=== PATIENT | male | born 1940 | race Caucasian/White ===

== ENCOUNTER 2015-12-05 11:08 | Inpatient (IN) | payer MEDICARE ==
[2015-12-05] VITALS (13 sets, daily range): BP systolic 134–137; BP diastolic 73–80; PULSE 69–100; RESP 14–18; TEMP 97.7–98.7; O2SAT 97–100
[~2015-12-05] VITALS: Ht 170.2 cm; Wt 56.5 kg
[~2015-12-05 11:08] MED LIST: Z.0.NO CURRENT MEDS
[2015-12-05] MEDS ORDERED: PROPOFOL 1000 MG/100 ML INJ 100 ML ONE (11:11)
[2015-12-05] MEDS ORDERED: MIDAZOLAM HCL 5 MG/ML VIAL (1 ML) ONE (11:34)
[2015-12-05] MEDS ORDERED: ONDANSETRON HCL 4 MG/2 ML VIAL IV PRN (11:45)
[2015-12-05] MEDS ORDERED: MISCELLANEOUS NURSING INFORMATION XX SCH ×2 (11:45→12:30)
[2015-12-05] MEDS ORDERED: SODIUM CHLORIDE 0.9% FLUSH 5 ML FLUSH IVF PRN (11:45)
[2015-12-05] MEDS ORDERED: CHLORHEXIDINE GLUCONATE 2 % 1 PACK (2 CLOTHS) TOP PRN ×2 (11:45→12:30)
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
[2015-12-05 11:59] LABS: I-STAT POTASSIUM 4.2 MMOL/L (3.5-4.9)
[2015-12-05 12:00] LABS: AUTOMATED NEUTROPHIL # 7.8 TH/MM3 (1.8-7.7); BASOPHIL % 0.4 % (0.0-2.0); EOSINOPHIL % 0.4 % (0.0-4.0); HEMATOCRIT 39.2 % (39.0-51.0); HEMO FLAGS DIFF FINAL; LYMPH % 14.2 % (9.0-44.0); LYMPHOCYTE # 1.4 TH/MM3 (1.0-4.8); MEAN CELL VOLUME 98.6 FL (80.0-100.0); MEAN CORPUSCULAR HGB CONC 33.5 % (32.0-36.0); MONO % 4.9 % (0.0-8.0); NEUT % 80.1 % (16.0-70.0); PLATELET COUNT 219 TH/MM3 (150-450); RED BLOOD COUNT 3.98 MIL/MM3 (4.50-5.90); RED CELL DISTRIBUTION WIDTH 13.6 % (11.6-17.2); WHITE BLOOD COUNT 9.8 TH/MM3 (4.0-11.0)
[2015-12-05] MEDS ORDERED: BACITRACIN TOP OINT 15 GM TUBE TOP ONE (12:00)
[2015-12-05] MEDS ORDERED: LACTATED RINGER'S 1000 ML INJ 1,000 ML IV ONE ×2 (12:00→16:00)
[2015-12-05] MEDS ORDERED: IOHEXOL 350 MG/ML 10 ML VIAL (for RAD DIAG) IV ONE (12:08)
[2015-12-05 12:11] LABS: INTERNATIONAL NORMALIZED RATIO 1.1 RATIO; PROTHROMBIN TIME - PATIENT 10.7 SEC (9.8-11.4)
[2015-12-05 12:13] LABS: APTT (PATIENT) 26.8 SEC (22.6-28.8)
[2015-12-05] MEDS: SODIUM CHLOR 0.9% 1000 ML INJ 1,000 ML IV SCH (12:25)
[2015-12-05] MEDS ORDERED: BUPIVACAINE/EPINEPHRINE 0.5% 50 ML VIAL ONE (12:26)
[2015-12-05] MEDS ORDERED: DEXTROSE 50% IN WATER 50 ML VIAL(D50) IV PUSH PRN (12:30)
[2015-12-05] MEDS ORDERED: GLUCAGON 1 MG/ML VIAL OTHER PRN (12:30)
[2015-12-05] MEDS ORDERED: SENNOSIDES SYRUP 8.8 MG/5 ML CUP TUBE PRN (12:30)
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
[2015-12-05] MEDS: ARTIFICIAL TEARS OPTH SOLN 15 ML BTL EACH EYE SCH ×2 (13:00→17:18)
[2015-12-05] MEDS: PANTOPRAZOLE SODIUM 40 MG VIAL IVP SCH (13:00)
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
[2015-12-05] MEDS ORDERED: ceFAZolin INJ 1,000 MG VIAL IV ONE (13:10)
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
[2015-12-05] MEDS ORDERED: fentaNYL CITRATE 250 MCG/5 ML AMP ONE (14:12)
[2015-12-05] MEDS: MULTIVITAMIN INJ 10 ML, THIAMINE INJ 100 MG, FOLIC ACID INJ 1 MG in SODIUM CHLORID 0.9%... IV SCH (14:17)
[2015-12-05] MEDS ORDERED: NITROGLYCERIN 2% OINT 1 GM PACKET TOPICAL PRN (14:30)
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
[2015-12-05 14:49] LABS: BLOOD GAS BASE EXCESS -1.2 mmol/L (-2-2); BLOOD GAS CARBOXYHEMOGLOBIN 1.1 % (0-4); BLOOD GAS HCO3 23 mmol/L (22-26); BLOOD GAS METHEMOGLOBIN 0.8 % (0-2); BLOOD GAS O2 HGB SATURATION 98 % (90-100); BLOOD GAS OXYGEN CONTENT 16.8 Vol % (12.0-20.0); BLOOD GAS PCO2 38 mmHg (38-42); BLOOD GAS PO2 324 mmHg (61-120); BLOOD GAS TOTAL HGB 11.7 G/DL (12.0-16.0); CRITICAL VALUE NO; DRAW SITE RT RADIAL; FIO2 100 %; NUMBER OF ARTERIAL PUNCTURES 1; OXYGEN DEVICE VENTILATOR; STAT YES; TEMP CORR TO 98.6; VENT SETTINGS A/C500/14/PEEP5
[2015-12-05 16:18] LABS: BLOOD, URINE NEG (NEG); COMMENT (UR) CATH-CULT NOT IND; CULTURE IF INDICATED CATH CULTURE NOT IND; GLUCOSE,URINE NEG (NEG); KETONE, URINE NEG (NEG); MUCUS URINE FEW /lpf (OCC); NITRITE,URINE NEG (NEG); URINE COLOR YELLOW (YELLW/STRAW)
[2015-12-05 16:36] LABS: AMPHETAMINE, URINE NEG (NEG); BARBITURATES, URINE NEG (NEG); COCAINE, URINE NEG (NEG)
[2015-12-05] MEDS: RESP: ALBUTEROL 2.5 MG/IPRATROPIUM 0.5 MG NEB (SCH) INH ×2 (16:39→20:48)
[2015-12-05] MEDS: INSULIN NovoLIN REGULAR SUPPLEMENTAL SCALE SQ SCH (17:18)
[2015-12-05] MEDS: PROPOFOL 1000 MG/100 ML INJ 100 ML IV SCH (18:07)
[2015-12-05] MEDS: CHLORHEXIDINE 0.12% (ORAL KIT) 15 ML CUP MT SCH (20:00)
[2015-12-05] MEDS ORDERED: CHLORHEXIDINE 0.12% (ORAL KIT) 15 ML CUP MT SCH (20:00)
[2015-12-05] MEDS: SODIUM CHLORIDE 0.9% FLUSH 5 ML FLUSH IVF SCH (20:25)
[2015-12-05] MEDS: DOCUSATE SODIUM 100 MG CAP PO SCH (20:26)
[2015-12-05] MEDS: BACITRACIN TOP OINT 15 GM TUBE TOP SCH (21:00)
[2015-12-06] VITALS (21 sets, daily range): BP systolic 87–145; BP diastolic 51–73; PULSE 57–100; RESP 14–20; TEMP 97.4–99.1; O2SAT 97–100
[2015-12-06] MEDS: PROPOFOL 1000 MG/100 ML INJ 100 ML IV SCH ×3 (01:32→16:48)
[2015-12-06] MEDS: SODIUM CHLOR 0.9% 1000 ML INJ 1,000 ML IV SCH ×3 (01:45→21:21)
[2015-12-06] MEDS ORDERED: CHLORHEXIDINE GLUCONATE 2 % 1 PACK (2 CLOTHS) TOP SCH (04:00)
[2015-12-06] MEDS: CHLORHEXIDINE GLUCONATE 2 % 1 PACK (2 CLOTHS) TOP SCH (04:00)
[2015-12-06] MEDS: RESP: ALBUTEROL 2.5 MG/IPRATROPIUM 0.5 MG NEB (SCH) INH ×4 (04:36→19:28)
[2015-12-06 04:45] LABS: BICARBONATE 26.2 MEQ/L (21.0-32.0); CALCIUM-PROTEIN CORRECTED 8.5 MG/DL (8.5-10.1); MAGNESIUM 1.7 MG/DL (1.5-2.5); POTASSIUM 3.8 MEQ/L (3.5-5.1); TOTAL BILIRUBIN ADULT 1.1 MG/DL (0.2-1.0)
[2015-12-06] MEDS: INSULIN NovoLIN REGULAR SUPPLEMENTAL SCALE SQ SCH ×4 (06:00→18:00)
[2015-12-06 06:05] LABS: AUTOMATED NEUTROPHIL # 5.8 TH/MM3 (1.8-7.7); BASOPHIL % 0.3 % (0.0-2.0); EOSINOPHIL # 0.1 TH/MM3 (0-0.4); EOSINOPHIL % 1.3 % (0.0-4.0); HEMATOCRIT 32.2 % (39.0-51.0); HEMO FLAGS DIFF FINAL; LYMPHOCYTE # 1.1 TH/MM3 (1.0-4.8); MEAN CELL VOLUME 98.6 FL (80.0-100.0); MEAN CORPUSCULAR HEMOGLOBIN 33.3 PG (27.0-34.0); MEAN CORPUSCULAR HGB CONC 33.7 % (32.0-36.0); MONO % 8.1 % (0.0-8.0); NEUT % 76.3 % (16.0-70.0); PLATELET COUNT 156 TH/MM3 (150-450); RED BLOOD COUNT 3.26 MIL/MM3 (4.50-5.90); RED CELL DISTRIBUTION WIDTH 14.2 % (11.6-17.2); WHITE BLOOD COUNT 7.6 TH/MM3 (4.0-11.0)
--- NOTE | 2015-12-06 06:13 | RADRPT ---
EXAM DATE/TIME: 12/06/2015 04:49 [facility] COMPARISON: CHEST SINGLE AP, December 05, 2015, 11:04. INDICATIONS : Shortness of breath. MEDICAL HISTORY : Unobtainable. SURGICAL HISTORY : Unobtainable. ENCOUNTER: Subsequent ACUITY: 1 day PAIN SCORE: Non-responsive. LOCATION: Bilateral chest FINDINGS: Endotracheal tube in satisfactory position. Nasogastric tube has been placed since December 04. Mild basi lar airspace disease stable to slightly improved from December 04. There is a small right apical pneumoth orax with about 1 cm of pleural separation. There is some motion artifact on the prior study. Left ap ical pleural thickening. CONCLUSION: 1. Small right apical pneumothorax with about 1 cm pleural separation. Close followup recommended. Cam Adams MD on December 06, 2015 at 6:07 Board Certified Radiologist. This report was verified electronically.
[2015-12-06] MEDS: CHLORHEXIDINE 0.12% (ORAL KIT) 15 ML CUP MT SCH ×2 (08:00→19:17)
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
[2015-12-06] MEDS: BACITRACIN TOP OINT 15 GM TUBE TOP SCH ×2 (09:00→21:00)
[2015-12-06] MEDS: ARTIFICIAL TEARS OPTH SOLN 15 ML BTL EACH EYE SCH ×3 (09:00→18:00)
[2015-12-06] MEDS: SODIUM CHLORIDE 0.9% FLUSH 5 ML FLUSH IVF SCH ×2 (09:00→19:17)
[2015-12-06] MEDS: DOCUSATE SODIUM 100 MG CAP PO SCH ×2 (09:03→19:18)
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
[2015-12-06] MEDS: PIPERACIL-TAZO 4.5 GM PREMIX 100 ML IV SCH ×3 (11:07→21:08)
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
[2015-12-06] MEDS ORDERED: LORazepam 2 MG/ML VIAL ONE (12:17)
[2015-12-06] MEDS ORDERED: LORazepam 2 MG/ML VIAL IV PUSH ONE (12:30)
[2015-12-06] MEDS ORDERED: SODIUM CHLOR 0.9% 1000 ML INJ 1,000 ML IV ONE (12:30)
[2015-12-06] MEDS ORDERED: ALBUMIN HUMAN 25% 25 GM/100 ML BAGP IV ONE (14:00)
[2015-12-06] MEDS: PANTOPRAZOLE SODIUM 40 MG VIAL IVP SCH (14:16)
[2015-12-06] MEDS: MULTIVITAMIN INJ 10 ML, THIAMINE INJ 100 MG, FOLIC ACID INJ 1 MG in SODIUM CHLORID 0.9%... IV SCH (14:18)
[2015-12-06] MEDS: MIDAZOLAM 100 MG/ML INJ 100 ML IV SCH (16:48)
--- NOTE | 2015-12-06 17:03 | RADRPT ---
EXAM DATE/TIME: 12/06/2015 15:55 [facility] COMPARISON: CTA CAROTID ARTERIES W 3D RECON, December 05, 2015, 11:53. CHEST SINGLE AP, December 05, 2015, 11:04. CHEST SINGLE AP, December 06, 2015, 4:49. INDICATIONS : Short of breath, evaluate right apical pneumothorax MEDICAL HISTORY : right apical pneumothorax SURGICAL HISTORY : unobtainable ENCOUNTER: Subsequent ACUITY: 2 days PAIN SCORE: Non-responsive. LOCATION: Right chest FINDINGS: Rotated AP view of the chest demonstrates a normal-sized cardiac silhouette. ETT and nasogastric tube remain present. There is stable lucency at the apex of the right hemithorax suspicious for a small r esidual apical pneumothorax. There is airspace opacity left lower lung zone representing either atele ctasis or consolidation. There is hazy opacity at the right lung base partially obscuring the periphe ral hemidiaphragm. CONCLUSION: 1. There is likely a continued tiny right apical pneumothorax. There is subtle lucency visualized. 2. Mild airspace consolidation versus atelectasis at the left lung base. 3. Hazy opacity right lung base may represent pleural effusion with associated volume loss and/or con solidation. Martinez Mcguire MD on December 06, 2015 at 16:58 Board Certified Radiologist. This report was verified electronically.
[2015-12-06] MEDS: POLYETHYLENE GLYCOL 17 GM PKG PO/NG SCH (21:08)
[2015-12-06] MEDS: fentaNYL DRIP 250 ML IV SCH (21:31)
[2015-12-07] VITALS (23 sets, daily range): BP systolic 90–127; BP diastolic 53–60; PULSE 67–94; RESP 14–17; TEMP 97.2–100.7; O2SAT 97–100
[2015-12-07] MEDS: ACETAMINOPHEN 325 MG TAB PO PRN ×2 (00:06→10:15)
[2015-12-07] MEDS: RESP: ALBUTEROL 2.5 MG/IPRATROPIUM 0.5 MG NEB (SCH) INH ×4 (03:35→19:27)
[2015-12-07] MEDS: CHLORHEXIDINE GLUCONATE 2 % 1 PACK (2 CLOTHS) TOP SCH (04:00)
[2015-12-07] MEDS: PIPERACIL-TAZO 4.5 GM PREMIX 100 ML IV SCH ×3 (05:02→17:00)
[2015-12-07 05:06] LABS: AUTOMATED NEUTROPHIL # 6.6 TH/MM3 (1.8-7.7); BASOPHIL % 0.3 % (0.0-2.0); EOSINOPHIL # 0.1 TH/MM3 (0-0.4); EOSINOPHIL % 1.3 % (0.0-4.0); HEMATOCRIT 27.9 % (39.0-51.0); HEMO FLAGS DIFF FINAL; LYMPH % 11.6 % (9.0-44.0); LYMPHOCYTE # 0.9 TH/MM3 (1.0-4.8); MEAN CELL VOLUME 100.6 FL (80.0-100.0); MEAN CORPUSCULAR HEMOGLOBIN 33.4 PG (27.0-34.0); MEAN CORPUSCULAR HGB CONC 33.2 % (32.0-36.0); MONO % 5.9 % (0.0-8.0); NEUT % 80.9 % (16.0-70.0); PLATELET COUNT 115 TH/MM3 (150-450); RED BLOOD COUNT 2.77 MIL/MM3 (4.50-5.90); RED CELL DISTRIBUTION WIDTH 14.1 % (11.6-17.2); WHITE BLOOD COUNT 8.1 TH/MM3 (4.0-11.0)
[2015-12-07 05:18] LABS: BICARBONATE 25.6 MEQ/L (21.0-32.0); POTASSIUM 3.1 MEQ/L (3.5-5.1)
[2015-12-07 05:34] LABS: CALCIUM-PROTEIN CORRECTED 7.3 MG/DL (8.5-10.1)
[2015-12-07] MEDS ORDERED: CALCIUM GLUCONATE INJ 2 GM in SODIUM CHLORIDE 0.9% INJ 100 ML IV ONE (05:45)
--- NOTE | 2015-12-07 05:46 | RADRPT ---
EXAM DATE/TIME: 12/07/2015 04:32 [facility] COMPARISON: CHEST SINGLE AP, December 06, 2015, 15:55. INDICATIONS : Short of Breath MEDICAL HISTORY : Right apical pneumothorax SURGICAL HISTORY : Unobtainable ENCOUNTER: Subsequent ACUITY: 2 days PAIN SCORE: Non-responsive. LOCATION: Bilateral chest FINDINGS: No pneumothorax identified on current exam. Bilateral mostly basilar airspace disease, left greater t amador right is relatively stable. Endotracheal tube and nasogastric tube unchanged. There is a presumed stent overlying the left mainstem bronchus. Left-sided pleural thickening is stable. CONCLUSION: 1. No pneumothorax seen on current exam. Relatively stable basilar airspace disease, left greater chente n right. Cam Adams MD on December 07, 2015 at 5:41 Board Certified Radiologist. This report was verified electronically.
[2015-12-07] MEDS: INSULIN NovoLIN REGULAR SUPPLEMENTAL SCALE SQ SCH ×4 (05:50→18:00)
[2015-12-07] MEDS: CHLORHEXIDINE 0.12% (ORAL KIT) 15 ML CUP MT SCH ×2 (07:43→20:00)
[2015-12-07] MEDS: MIDAZOLAM 100 MG/ML INJ 100 ML IV SCH (08:13)
[2015-12-07] MEDS: POLYETHYLENE GLYCOL 17 GM PKG PO/NG SCH ×3 (08:17→20:57)
[2015-12-07] MEDS: DOCUSATE SODIUM 100 MG CAP PO SCH ×2 (08:17→20:56)
[2015-12-07] MEDS: ARTIFICIAL TEARS OPTH SOLN 15 ML BTL EACH EYE SCH ×3 (08:18→18:00)
[2015-12-07] MEDS: BACITRACIN TOP OINT 15 GM TUBE TOP SCH ×2 (08:18→20:57)
[2015-12-07] MEDS: SODIUM CHLORIDE 0.9% FLUSH 5 ML FLUSH IVF SCH ×2 (08:18→20:56)
[2015-12-07] MEDS: SENNOSIDES SYRUP 8.8 MG/5 ML CUP PO/NG SCH ×2 (08:24→20:56)
[2015-12-07] MEDS: MAGNESIUM SULFATE 1 GM PREMIX 100 ML IV SCH ×2 (08:25→09:49)
[2015-12-07] MEDS: LACTULOSE SYRUP 20 GM/30 ML CUP PO/NG SCH ×2 (08:25→20:56)
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
[2015-12-07] MEDS ORDERED: POTASSIUM PHOSPHATE INJ 30 MMOL in SODIUM CHLOR 0.9% 250 ML INJ 250 ML IV PRN (08:30)
[2015-12-07] MEDS ORDERED: POTASSIUM CL 40 MEQ/30 ML LIQ UDC PO ONE (08:30)
[2015-12-07] MEDS ORDERED: MAGNESIUM OXIDE 400 MG TAB PO PRN (08:30)
[2015-12-07] MEDS ORDERED: POTASSIUM CHLOR 20 MEQ PREMIX 100 ML IV ONE (08:30)
[2015-12-07] MEDS ORDERED: MAGNESIUM SULFATE INJ 2 GM in SODIUM CHLORIDE 0.9% INJ 96 ML IV PRN (08:30)
[2015-12-07] MEDS ORDERED: MAGNESIUM SULFATE INJ 4 GM in SODIUM CHLORIDE 0.9% INJ 92 ML IV PRN (08:30)
[2015-12-07] MEDS ORDERED: 1/2 NS + KCL 20 MEQ INJ 1,000 ML IV SCH (08:30)
[2015-12-07] MEDS ORDERED: POTASSIUM PHOSPHATE MONOBASIC 500 MG TAB PO PRN (08:30)
[2015-12-07] MEDS ORDERED: POTASSIUM CHLOR 20 MEQ PREMIX 100 ML IV PRN (08:30)
[2015-12-07] MEDS ORDERED: POTASSIUM CL 40 MEQ/30 ML LIQ UDC PO/TUBE PRN ×2 (08:30)
[2015-12-07] MEDS ORDERED: POTASSIUM PHOSPHATE MONOBASIC 500 MG TAB PO/TUBE PRN (08:30)
[2015-12-07] MEDS ORDERED: POTASSIUM CHLOR 40 MEQ PREMIX 100 ML IV PRN ×2 (08:30)
[2015-12-07] MEDS: BISACODYL 10 MG SUPP RECTAL SCH (09:49)
[2015-12-07] MEDS ORDERED: CALCIUM GLUCONATE INJ 1 GM in SODIUM CHLORIDE 0.9% INJ 100 ML IV ONE (10:00)
[2015-12-07] MEDS ORDERED: EPINEPHrine HCL (1:10,000) 1 MG/10 ML SYRINGE ONE (11:18)
[2015-12-07] MEDS ORDERED: ATROPINE SULFATE 1 MG/10 ML SYRINGE ONE (11:18)
[2015-12-07] MEDS ORDERED: LIDOCAINE HCL 2% 100 MG/5 ML SYRINGE ONE (11:19)
[2015-12-07] MEDS ORDERED: IOHEXOL 350 MG/ML 10 ML VIAL (for RAD DIAG) IV ONE (12:13)
[2015-12-07] MEDS: PANTOPRAZOLE SODIUM 40 MG VIAL IVP SCH (12:16)
[2015-12-07] MEDS: fentaNYL DRIP 250 ML IV SCH (12:17)
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
[2015-12-07] MEDS: MULTIVITAMIN INJ 10 ML, THIAMINE INJ 100 MG, FOLIC ACID INJ 1 MG in SODIUM CHLORID 0.9%... IV SCH (13:28)
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
[2015-12-08] VITALS (18 sets, daily range): BP systolic 96–127; BP diastolic 54–61; PULSE 74–103; RESP 14–18; TEMP 98.3–102.6; O2SAT 96–100
[2015-12-08] MEDS: PIPERACIL-TAZO 4.5 GM PREMIX 100 ML IV SCH ×4 (00:21→16:41)
[2015-12-08] MEDS: INSULIN NovoLIN REGULAR SUPPLEMENTAL SCALE SQ SCH ×4 (00:48→17:22)
[2015-12-08] MEDS: ACETAMINOPHEN 325 MG TAB PO PRN ×3 (00:49→21:32)
[2015-12-08] MEDS: RESP: ALBUTEROL 2.5 MG/IPRATROPIUM 0.5 MG NEB (SCH) INH ×4 (01:10→20:07)
[2015-12-08 04:40] LABS: AUTOMATED NEUTROPHIL # 3.7 TH/MM3 (1.8-7.7); BASOPHIL % 0.2 % (0.0-2.0); EOSINOPHIL # 0.1 TH/MM3 (0-0.4); EOSINOPHIL % 2.6 % (0.0-4.0); HEMATOCRIT 30.1 % (39.0-51.0); HEMO FLAGS DIFF FINAL; LYMPH % 11.8 % (9.0-44.0); LYMPHOCYTE # 0.6 TH/MM3 (1.0-4.8); MEAN CELL VOLUME 101.3 FL (80.0-100.0); MEAN CORPUSCULAR HEMOGLOBIN 33.6 PG (27.0-34.0); MEAN CORPUSCULAR HGB CONC 33.2 % (32.0-36.0); MONO % 6.8 % (0.0-8.0); NEUT % 78.6 % (16.0-70.0); PLATELET COUNT 109 TH/MM3 (150-450); RED BLOOD COUNT 2.97 MIL/MM3 (4.50-5.90); RED CELL DISTRIBUTION WIDTH 14.2 % (11.6-17.2); WHITE BLOOD COUNT 4.7 TH/MM3 (4.0-11.0)
[2015-12-08 05:43] LABS: BICARBONATE 27.2 MEQ/L (21.0-32.0); MAGNESIUM 2.3 MG/DL (1.5-2.5); POTASSIUM 4.3 MEQ/L (3.5-5.1)
[2015-12-08] MEDS: CHLORHEXIDINE GLUCONATE 2 % 1 PACK (2 CLOTHS) TOP SCH (05:47)
[2015-12-08] MEDS: MIDAZOLAM 100 MG/ML INJ 100 ML IV SCH ×2 (05:47→18:42)
--- NOTE | 2015-12-08 05:52 | RADRPT ---
EXAM DATE/TIME: 12/08/2015 05:07 [facility] COMPARISON: CHEST SINGLE AP, December 07, 2015, 4:32. INDICATIONS : Short of breath. MEDICAL HISTORY : Hypertension. Right apical pneumothorax. SURGICAL HISTORY : None. ENCOUNTER: Subsequent ACUITY: 3 days PAIN SCORE: Non-responsive. LOCATION: Bilateral chest FINDINGS: A single view of the chest demonstrates endotracheal tube in satisfactory position. NG enters stomach . Bilateral airspace disease, left greater than right relatively stable over the last day. No pneumot horax. Small effusions. CONCLUSION: 1. Endotracheal tube and nasogastric tube unchanged. Stable bilateral airspace disease with small eff usions. Cam Adams MD on December 08, 2015 at 5:48 Board Certified Radiologist. This report was verified electronically.
[2015-12-08] MEDS: CHLORHEXIDINE 0.12% (ORAL KIT) 15 ML CUP MT SCH ×2 (07:38→20:00)
[2015-12-08] MEDS: SODIUM PHOSPHATE INJ 30 MMOL in SODIUM CHLOR 0.9% 250 ML INJ 240 ML IV PRN (07:45)
[2015-12-08] MEDS: BACITRACIN TOP OINT 15 GM TUBE TOP SCH ×2 (08:00→21:23)
[2015-12-08] MEDS: SODIUM CHLORIDE 0.9% FLUSH 5 ML FLUSH IVF SCH ×2 (08:00→21:21)
[2015-12-08] MEDS: SENNOSIDES SYRUP 8.8 MG/5 ML CUP PO/NG SCH (08:00)
[2015-12-08] MEDS: LACTULOSE SYRUP 20 GM/30 ML CUP PO/NG SCH ×3 (08:00→17:23)
[2015-12-08] MEDS: BISACODYL 10 MG SUPP RECTAL SCH (08:00)
[2015-12-08] MEDS: DOCUSATE SODIUM 100 MG CAP PO SCH ×3 (08:00→21:32)
[2015-12-08] MEDS: POLYETHYLENE GLYCOL 17 GM PKG PO/NG SCH ×2 (08:00→21:00)
[2015-12-08] MEDS: ARTIFICIAL TEARS OPTH SOLN 15 ML BTL EACH EYE SCH ×3 (08:00→17:23)
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
[2015-12-08] MEDS ORDERED: GLYCERIN ADULT 2 GM SUPP RECTAL ONE (10:00)
[2015-12-08] MEDS: SENNOSIDES SYRUP 8.8 MG/5 ML CUP TUBE SCH ×2 (12:06→21:22)
[2015-12-08] MEDS: PANTOPRAZOLE SODIUM 40 MG VIAL IVP SCH (12:07)
[2015-12-08] MEDS ORDERED: METHYLNALTREXONE BROMIDE 12 MG/0.6 ML VIAL SQ ONE ×2 (12:30→14:00)
[2015-12-08] MEDS: METOCLOPRAMIDE HCL 10 MG/2 ML VIAL IV PUSH SCH ×2 (13:01→21:21)
[2015-12-08] MEDS: fentaNYL DRIP 250 ML IV SCH (14:59)
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
[2015-12-08] MEDS ORDERED: DILTIAZEM HCL 25 MG/5 ML VIAL ONE (20:42)
[2015-12-08] MEDS ORDERED: DILTIAZEM 125 MG/NS 100 ML IV SCH ×2 (21:30)
[2015-12-08] MEDS ORDERED: DILTIAZEM HCL 25 MG/5 ML VIAL IV PUSH ONE (21:30)
[2015-12-09] VITALS (21 sets, daily range): BP systolic 90–115; BP diastolic 54–61; PULSE 66–96; RESP 14; TEMP 99–100.6; O2SAT 92–100
[2015-12-09] MEDS: CHLORHEXIDINE GLUCONATE 2 % 1 PACK (2 CLOTHS) TOP SCH
[2015-12-09] MEDS: INSULIN NovoLIN REGULAR SUPPLEMENTAL SCALE SQ SCH ×4 (01:01→16:50)
[2015-12-09] MEDS: PIPERACIL-TAZO 4.5 GM PREMIX 100 ML IV SCH ×5 (01:01→21:22)
[2015-12-09] MEDS ORDERED: ALBUMIN HUMAN 5% 12.5 GM/250 ML BOTTLE IV ONE (03:30)
[2015-12-09] MEDS: RESP: ALBUTEROL 2.5 MG/IPRATROPIUM 0.5 MG NEB (SCH) INH ×4 (03:58→20:25)
[2015-12-09 04:56] LABS: BICARBONATE 26.2 MEQ/L (21.0-32.0); MAGNESIUM 2.2 MG/DL (1.5-2.5); POTASSIUM 4.8 MEQ/L (3.5-5.1)
[2015-12-09 05:13] LABS: CALCIUM-PROTEIN CORRECTED 8.4 MG/DL (8.5-10.1)
[2015-12-09 05:42] LABS: AUTOMATED NEUTROPHIL # 5.1 TH/MM3 (1.8-7.7); BASOPHIL % 0.4 % (0.0-2.0); EOSINOPHIL # 0.2 TH/MM3 (0-0.4); EOSINOPHIL % 2.8 % (0.0-4.0); HEMATOCRIT 28.5 % (39.0-51.0); LYMPH % 10.8 % (9.0-44.0); LYMPHOCYTE # 0.7 TH/MM3 (1.0-4.8); MEAN CELL VOLUME 98.6 FL (80.0-100.0); MEAN CORPUSCULAR HEMOGLOBIN 33.2 PG (27.0-34.0); MEAN CORPUSCULAR HGB CONC 33.7 % (32.0-36.0); MONO % 8.7 % (0.0-8.0); NEUT % 77.3 % (16.0-70.0); PLATELET COUNT 106 TH/MM3 (150-450); RED BLOOD COUNT 2.89 MIL/MM3 (4.50-5.90); RED CELL DISTRIBUTION WIDTH 14.1 % (11.6-17.2); WHITE BLOOD COUNT 6.6 TH/MM3 (4.0-11.0)
[2015-12-09 05:49] LABS: HEMO FLAGS AUTO DIFF
[2015-12-09 05:53] LABS: BANDS 39 % (0-6); EOSINOPHILS 4 % (0-4); METAMYELOCYTES 3 % (0-1); NEUTROPHIL # MANUAL DIFF 4.9 TH/MM3 (1.8-7.7); POLYS (SEG NEUTROPHILS) 32 % (16-70); SCAN/DIFF FINAL DIFF MANUAL; WBC DIFF SAMPLE 100
[2015-12-09 05:54] LABS: DOHLE BODIES PRESENT (NONE SEEN); PLATELET ESTIMATE SMEAR LOW (NORMAL); PLATELET MORPHOLOGY NORMAL (NORMAL); TOXIC GRANULATION 1+ (NORMAL); TOXIC VACUOLATION PRESENT (NONE SEEN)
[2015-12-09] MEDS: METOCLOPRAMIDE HCL 10 MG/2 ML VIAL IV PUSH SCH ×3 (06:38→21:22)
[2015-12-09] MEDS ORDERED: Vancomycin Consult Pharmacy 1 EA OTHER SCH (06:45)
[2015-12-09] MEDS ORDERED: VANCOMYCIN 1,000 MG/NS 250 ML IV ONE ×2 (06:45)
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
[2015-12-09] MEDS ORDERED: SODIUM CHLORID 0.9% 500 ML INJ 500 ML IV ONE (07:30)
[2015-12-09] MEDS: MIDAZOLAM 100 MG/ML INJ 100 ML IV SCH (07:51)
[2015-12-09] MEDS: fentaNYL DRIP 250 ML IV SCH (07:51)
[2015-12-09] MEDS: ENOXAPARIN SODIUM 30 MG/0.3 ML SYRINGE SQ SCH ×2 (07:53→21:21)
[2015-12-09] MEDS: RANITIDINE HCL 150 MG TAB PO SCH ×2 (07:53→21:20)
[2015-12-09] MEDS: POLYETHYLENE GLYCOL 17 GM PKG PO/NG SCH ×2 (07:53→21:21)
[2015-12-09] MEDS: ARTIFICIAL TEARS OPTH SOLN 15 ML BTL EACH EYE SCH ×3 (07:54→16:57)
[2015-12-09] MEDS: CHLORHEXIDINE 0.12% (ORAL KIT) 15 ML CUP MT SCH ×2 (07:54→20:00)
[2015-12-09] MEDS: METOPROLOL TARTRATE 5 MG/5 ML VIAL IV PUSH SCH ×3 (07:54→21:21)
[2015-12-09] MEDS: BACITRACIN TOP OINT 15 GM TUBE TOP SCH ×2 (07:55→21:00)
[2015-12-09] MEDS: SODIUM CHLORIDE 0.9% FLUSH 5 ML FLUSH IVF SCH ×2 (07:55→21:22)
--- NOTE | 2015-12-09 08:22 | RADRPT ---
EXAM DATE/TIME: 12/09/2015 07:41 [facility] COMPARISON: CHEST SINGLE AP, December 08, 2015, 5:07. INDICATIONS : Pneumonia. MEDICAL HISTORY : Pneumothorax. SURGICAL HISTORY : None. ENCOUNTER: Subsequent ACUITY: 4 - 6 days PAIN SCORE: Non-responsive. LOCATION: chest FINDINGS: The patient is intubated with ET tube 2.5 cm from the sherrie. There is a NG tube in place with its ti p directed into the stomach. The cardiac silhouette is within normal limits for size. There is worsen ing increased density throughout the left chest representing alveolar consolidation and a suspected m ild effusion. There is mild atelectasis at the right base. A pneumothorax is not seen. CONCLUSION: 1. No pneumothorax is seen. 2. Increased density throughout the left lung representing alveolar consolidation, atelectasis and po ssible mild effusion. 3. ET tube and NG tube in good position. Martinez Mireles MD on December 09, 2015 at 8:17 Board Certified Radiologist. This report was verified electronically.
[2015-12-09] MEDS: RESP: SODIUM CHLORIDE 3% 4 ML NEB NEB SCH ×3 (09:06→20:24)
[2015-12-09] MEDS: FREE WATER OG SCH ×2 (10:00→16:57)
[2015-12-09 11:20] LABS: BACTERIA, URINE OCC /hpf; BLOOD, URINE NEG (NEG); GLUCOSE,URINE NEG (NEG); HYALINE CAST, URINE 1 /lpf (RARE); KETONE, URINE TRACE mg/dL (NEG); MUCUS URINE FEW /lpf (OCC); NITRITE,URINE NEG (NEG); SQUAMOUS EPITHELIAL CELL URINE <1 /hpf (0-5); URINE COLOR YELLOW (YELLW/STRAW)
[2015-12-09 11:21] LABS: COMMENT (UR) CATH-CULTURE IND; CULTURE IF INDICATED CATH CULTURE IND
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
[2015-12-09] MEDS: SENNOSIDES SYRUP 8.8 MG/5 ML CUP TUBE SCH (13:34)
--- NOTE | 2015-12-09 17:44 | EKG ---
Date Performed: 12/08/2015 Time Performed: 20:26:22 PTAGE: 74 years EKG: Atrial fibrillation with rapid ventricular response. Extensive ST-T changes may be due to m yocardial ischemia When compared to previous tracing, atrial fibrillation with rapid Ventricular resp onse has replaced normal Sinus rhythm . Nonspecific ST-T changes are now noted. Abnormal ECG PREVIOUS TRACING : 03/18/2013 04.58 DOCTOR: Byron Hernández Interpretating Date/Time 12/09/2015 17:43:50
--- NOTE | 2015-12-09 17:47 | EKG ---
Date Performed: 12/09/2015 Time Performed: 08:24:49 PTAGE: 74 years EKG: Sinus rhythm WITH SINUS ARRHYTHMIA When compared to previous tracing, sinus rhythm has replaced Atrial fibrillati on. ST-T abnormalities have resolved. NORMAL ECG PREVIOUS TRACING : 12/08/2015 20.26.22 DOCTOR: Byron Hernández Interpretating Date/Time 12/09/2015 17:45:58
--- NOTE | 2015-12-09 18:49 | RADRPT ---
EXAM DATE/TIME: 12/09/2015 18:24 [place] COMPARISON: No previous studies available for comparison. INDICATIONS : Altered mental status; patient is not waking up post sedation. RADIATION DOSE: 40.91 CTDIvol (mGy) MEDICAL HISTORY : Non-responsive. SURGICAL HISTORY : Non-responsive. ENCOUNTER: Subsequent ACUITY: 4 - 6 days PAIN SCALE: Non-responsive LOCATION: cranial TECHNIQUE: Multiple contiguous axial images were obtained of the head. Using automated exposure control and adj ustment of the mA and/or kV according to patient size, radiation dose was kept as low as reasonably a chievable to obtain optimal diagnostic quality images. FINDINGS: CEREBRUM: The ventricles are normal for age. No evidence of midline shift, mass lesion, hemorrhage or acute in farction. No extra-axial fluid collections are seen. POSTERIOR FOSSA: The cerebellum and brainstem are intact. The 4th ventricle is midline. The cerebellopontine angle i s unremarkable. EXTRACRANIAL: Patient remains intubated. There is mucoperiosteal thickening and debris of the paranasal sinuses. Th ere is also opacification developing of both mastoid air cells. SKULL: The calvaria is intact. No evidence of skull fracture. CONCLUSION: 1. No acute intracranial abnormality demonstrated. 2. Worsening/developing sinusitis/mastoiditis. Martinez Arciniega MD on December 09, 2015 at 18:46 Board Certified Radiologist. This report was verified electronically.
[2015-12-09] MEDS: VANCOMYCIN INJ 1,300 MG in SODIUM CHLORID 0.9% 500 ML INJ 500 ML IV SCH (21:22)
[2015-12-10] VITALS (17 sets, daily range): BP systolic 103–156; BP diastolic 53–78; PULSE 83–91; RESP 14–19; TEMP 98.8–104; O2SAT 91–100
[2015-12-10] MEDS: CHLORHEXIDINE GLUCONATE 2 % 1 PACK (2 CLOTHS) TOP SCH
[2015-12-10] MEDS: FREE WATER OG SCH ×3 (02:00→17:01)
[2015-12-10] MEDS: RESP: SODIUM CHLORIDE 3% 4 ML NEB NEB SCH ×4 (03:21→20:52)
[2015-12-10] MEDS: RESP: ALBUTEROL 2.5 MG/IPRATROPIUM 0.5 MG NEB (SCH) INH ×4 (03:21→20:52)
[2015-12-10] MEDS: METOPROLOL TARTRATE 5 MG/5 ML VIAL IV PUSH SCH ×4 (04:04→19:33)
[2015-12-10] MEDS: METOCLOPRAMIDE HCL 10 MG/2 ML VIAL IV PUSH SCH ×3 (04:05→19:34)
[2015-12-10] MEDS: PIPERACIL-TAZO 4.5 GM PREMIX 100 ML IV SCH ×4 (04:05→19:34)
[2015-12-10] MEDS: SENNOSIDES SYRUP 8.8 MG/5 ML CUP TUBE SCH ×3 (04:07→19:33)
[2015-12-10] MEDS: fentaNYL DRIP 250 ML IV SCH (04:28)
[2015-12-10] MEDS: MIDAZOLAM 100 MG/ML INJ 100 ML IV SCH (04:28)
[2015-12-10 05:06] LABS: BICARBONATE 22.7 MEQ/L (21.0-32.0); MAGNESIUM 1.7 MG/DL (1.5-2.5); POTASSIUM 4.2 MEQ/L (3.5-5.1)
[2015-12-10 05:30] LABS: CALCIUM-PROTEIN CORRECTED 7.2 MG/DL (8.5-10.1)
[2015-12-10] MEDS: INSULIN NovoLIN REGULAR SUPPLEMENTAL SCALE SQ SCH ×4 (06:00→18:00)
[2015-12-10] MEDS: CHLORHEXIDINE 0.12% (ORAL KIT) 15 ML CUP MT SCH ×2 (07:15→20:00)
[2015-12-10] MEDS: ENOXAPARIN SODIUM 30 MG/0.3 ML SYRINGE SQ SCH ×2 (08:12→19:33)
[2015-12-10] MEDS: POLYETHYLENE GLYCOL 17 GM PKG PO/NG SCH ×2 (08:12→19:33)
[2015-12-10] MEDS: SODIUM CHLORIDE 0.9% FLUSH 5 ML FLUSH IVF SCH ×2 (08:12→21:00)
[2015-12-10] MEDS: RANITIDINE HCL 150 MG TAB PO SCH ×2 (08:12→19:33)
[2015-12-10] MEDS: ARTIFICIAL TEARS OPTH SOLN 15 ML BTL EACH EYE SCH ×3 (08:13→17:01)
[2015-12-10] MEDS: BACITRACIN TOP OINT 15 GM TUBE TOP SCH ×2 (08:13→21:00)
[2015-12-10] MEDS: SODIUM PHOSPHATE INJ 30 MMOL in SODIUM CHLOR 0.9% 250 ML INJ 240 ML IV PRN (08:38)
[2015-12-10 10:10] LABS: AUTOMATED NEUTROPHIL # 3.3 TH/MM3 (1.8-7.7); BASOPHIL % 0.5 % (0.0-2.0); EOSINOPHIL # 0.2 TH/MM3 (0-0.4); EOSINOPHIL % 3.7 % (0.0-4.0); HEMATOCRIT 28.8 % (39.0-51.0); HEMO FLAGS DIFF FINAL; LYMPH % 16.4 % (9.0-44.0); LYMPHOCYTE # 0.7 TH/MM3 (1.0-4.8); MEAN CELL VOLUME 100.4 FL (80.0-100.0); MEAN CORPUSCULAR HGB CONC 32.9 % (32.0-36.0); MONO % 7.5 % (0.0-8.0); NEUT % 71.9 % (16.0-70.0); PLATELET COUNT 154 TH/MM3 (150-450); RED BLOOD COUNT 2.87 MIL/MM3 (4.50-5.90); RED CELL DISTRIBUTION WIDTH 14.2 % (11.6-17.2); WHITE BLOOD COUNT 4.5 TH/MM3 (4.0-11.0)
[2015-12-10] MEDS: ACETAMINOPHEN 325 MG TAB PO PRN ×2 (11:26→22:00)
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
[2015-12-10] MEDS ORDERED: POTASSIUM PHOSPHATE INJ 15 MMOL in SODIUM CHLORIDE 0.9% INJ 150 ML IV ONE (12:00)
[2015-12-10] MEDS ORDERED: SODIUM PHOSPHATE INJ 15 MMOL in SODIUM CHLORIDE 0.9% INJ 150 ML IV ONE (12:00)
[2015-12-10] MEDS ORDERED: CALCIUM GLUCONATE INJ 2 GM in SODIUM CHLORIDE 0.9% INJ 100 ML IV ONE (12:00)
[2015-12-10] MEDS: MAGNESIUM SULFATE 1 GM PREMIX 100 ML IV SCH ×2 (12:07→13:28)
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
[2015-12-10] MEDS: THIAMINE HCL 100 MG TAB PO/NG SCH (13:27)
[2015-12-10] MEDS ORDERED: FLUMAZENIL 0.5 MG/5 ML VIAL IV PUSH ONE (15:00)
[2015-12-10] MEDS: VANCOMYCIN INJ 1,300 MG in SODIUM CHLORID 0.9% 500 ML INJ 500 ML IV SCH (16:41)
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
[2015-12-11] VITALS (20 sets, daily range): BP systolic 97–144; BP diastolic 50–69; PULSE 66–102; RESP 14–17; TEMP 99.1–101.8; O2SAT 86–100
[2015-12-11] MEDS: CHLORHEXIDINE GLUCONATE 2 % 1 PACK (2 CLOTHS) TOP SCH (01:00)
[2015-12-11] MEDS: METOPROLOL TARTRATE 5 MG/5 ML VIAL IV PUSH SCH (02:00)
[2015-12-11] MEDS: RESP: ALBUTEROL 2.5 MG/IPRATROPIUM 0.5 MG NEB (SCH) INH ×6 (03:47→23:41)
[2015-12-11] MEDS: RESP: SODIUM CHLORIDE 3% 4 ML NEB NEB SCH ×6 (03:47→23:41)
[2015-12-11] MEDS: FREE WATER OG SCH ×3 (04:00→17:12)
[2015-12-11] MEDS: METOCLOPRAMIDE HCL 10 MG/2 ML VIAL IV PUSH SCH ×3 (04:36→20:20)
[2015-12-11] MEDS: PIPERACIL-TAZO 4.5 GM PREMIX 100 ML IV SCH ×4 (04:36→22:58)
[2015-12-11 04:38] LABS: AUTOMATED NEUTROPHIL # 6.2 TH/MM3 (1.8-7.7); BASOPHIL % 0.2 % (0.0-2.0); EOSINOPHIL # 0.1 TH/MM3 (0-0.4); EOSINOPHIL % 1.3 % (0.0-4.0); HEMATOCRIT 30.3 % (39.0-51.0); HEMO FLAGS DIFF FINAL; LYMPH % 7.6 % (9.0-44.0); LYMPHOCYTE # 0.6 TH/MM3 (1.0-4.8); MEAN CELL VOLUME 100.1 FL (80.0-100.0); MEAN CORPUSCULAR HEMOGLOBIN 32.8 PG (27.0-34.0); MEAN CORPUSCULAR HGB CONC 32.8 % (32.0-36.0); MONO % 8.3 % (0.0-8.0); NEUT % 82.6 % (16.0-70.0); PLATELET COUNT 161 TH/MM3 (150-450); RED BLOOD COUNT 3.03 MIL/MM3 (4.50-5.90); RED CELL DISTRIBUTION WIDTH 13.9 % (11.6-17.2); WHITE BLOOD COUNT 7.5 TH/MM3 (4.0-11.0)
[2015-12-11 05:01] LABS: MAGNESIUM 2.3 MG/DL (1.5-2.5); POTASSIUM 4.8 MEQ/L (3.5-5.1)
[2015-12-11] MEDS: fentaNYL DRIP 250 ML IV SCH ×3 (05:41→22:58)
[2015-12-11] MEDS: INSULIN NovoLIN REGULAR SUPPLEMENTAL SCALE SQ SCH ×5 (06:00→22:58)
--- NOTE | 2015-12-11 06:14 | RADRPT ---
EXAM DATE/TIME: 12/11/2015 05:27 [facility] COMPARISON: CHEST SINGLE AP, December 09, 2015, 7:41. INDICATIONS : Shortness of breath. MEDICAL HISTORY : Unobtainable. SURGICAL HISTORY : Unobtainable. ENCOUNTER: Subsequent ACUITY: 4 - 6 days PAIN SCORE: Non-responsive. LOCATION: Bilateral chest FINDINGS: ET tube, and NG tube have not changed. There is worsening opacification of the entire left lung since the prior study. Right perihilar parenchymal process has not significantly changed. CONCLUSION: Worsening opacity of the left lung. Carisa Vergara MD on December 11, 2015 at 6:12 Board Certified Radiologist. This report was verified electronically.
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
[2015-12-11] MEDS ORDERED: METHYLNALTREXONE BROMIDE 12 MG/0.6 ML VIAL SQ ONE (08:00)
[2015-12-11] MEDS: CHLORHEXIDINE 0.12% (ORAL KIT) 15 ML CUP MT SCH ×2 (08:00→20:00)
[2015-12-11] MEDS ORDERED: NALOXONE HCL 0.4 MG/ML AMP IV PUSH ONE (08:00)
[2015-12-11] MEDS ORDERED: MINERAL OIL LIQUID 30 ML CUP PO ONE (08:00)
[2015-12-11] MEDS ORDERED: FLUMAZENIL 0.5 MG/5 ML VIAL IV PUSH ONE (08:00)
[2015-12-11] MEDS ORDERED: BUMETANIDE INJ 1 MG/4 ML VIAL IV PUSH ONE (08:00)
[2015-12-11] MEDS: BACITRACIN TOP OINT 15 GM TUBE TOP SCH ×2 (08:08→20:21)
[2015-12-11] MEDS: ARTIFICIAL TEARS OPTH SOLN 15 ML BTL EACH EYE SCH ×3 (08:08→17:21)
[2015-12-11] MEDS: LACTULOSE SYRUP 20 GM/30 ML CUP PO SCH ×4 (08:08→20:20)
[2015-12-11] MEDS: SODIUM CHLORIDE 0.9% FLUSH 5 ML FLUSH IVF SCH ×2 (08:08→20:21)
[2015-12-11] MEDS: POLYETHYLENE GLYCOL 17 GM PKG PO/NG SCH ×2 (08:09→20:20)
[2015-12-11] MEDS: ENOXAPARIN SODIUM 30 MG/0.3 ML SYRINGE SQ SCH ×2 (08:09→20:20)
[2015-12-11] MEDS: THIAMINE HCL 100 MG TAB PO/NG SCH (08:09)
[2015-12-11] MEDS: THIAMINE HCL 100 MG TAB PO SCH (08:09)
[2015-12-11] MEDS: levETIRAcetam 500MG PREMIX INJ 100 ML IV SCH ×2 (08:09→20:20)
[2015-12-11] MEDS: RANITIDINE HCL 150 MG TAB PO SCH ×2 (08:09→20:20)
[2015-12-11] MEDS: METOPROLOL TARTRATE 25 MG TAB PO SCH ×2 (08:11→20:20)
[2015-12-11] MEDS: VANCOMYCIN INJ 1,300 MG in SODIUM CHLORID 0.9% 500 ML INJ 500 ML IV SCH ×2 (09:00→20:19)
[2015-12-11] MEDS ORDERED: PHARMACY ORDERED LAB XX ONE (09:45)
[2015-12-11] MEDS: SENNOSIDES SYRUP 8.8 MG/5 ML CUP TUBE SCH ×2 (12:48→22:57)
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
[2015-12-11] MEDS: ACETAMINOPHEN 325 MG TAB PO PRN ×2 (15:31→22:58)
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
[2015-12-11] MEDS: MIDAZOLAM 100 MG/ML INJ 100 ML IV SCH (22:58)
[2015-12-12] VITALS (19 sets, daily range): BP systolic 99–129; BP diastolic 50–61; PULSE 75–98; RESP 14–18; TEMP 99.3–102.9; O2SAT 94–100
[2015-12-12] MEDS: FREE WATER OG SCH ×3 (00:35→17:45)
[2015-12-12] MEDS: RESP: ALBUTEROL 2.5 MG/IPRATROPIUM 0.5 MG NEB (SCH) INH ×6 (03:53→23:46)
[2015-12-12] MEDS: RESP: SODIUM CHLORIDE 3% 4 ML NEB NEB SCH ×6 (03:53→23:46)
[2015-12-12] MEDS: CHLORHEXIDINE GLUCONATE 2 % 1 PACK (2 CLOTHS) TOP SCH (04:00)
[2015-12-12 04:02] LABS: AUTOMATED NEUTROPHIL # 4.7 TH/MM3 (1.8-7.7); BASOPHIL % 0.3 % (0.0-2.0); EOSINOPHIL # 0.1 TH/MM3 (0-0.4); EOSINOPHIL % 1.4 % (0.0-4.0); HEMATOCRIT 29.3 % (39.0-51.0); HEMO FLAGS DIFF FINAL; LYMPH % 11.5 % (9.0-44.0); LYMPHOCYTE # 0.7 TH/MM3 (1.0-4.8); MEAN CELL VOLUME 99.4 FL (80.0-100.0); MEAN CORPUSCULAR HEMOGLOBIN 32.2 PG (27.0-34.0); MEAN CORPUSCULAR HGB CONC 32.4 % (32.0-36.0); MONO % 5.6 % (0.0-8.0); NEUT % 81.2 % (16.0-70.0); PLATELET COUNT 208 TH/MM3 (150-450); RED BLOOD COUNT 2.95 MIL/MM3 (4.50-5.90); RED CELL DISTRIBUTION WIDTH 13.9 % (11.6-17.2); WHITE BLOOD COUNT 5.8 TH/MM3 (4.0-11.0)
[2015-12-12 04:34] LABS: ALT (GPT) 21 U/L (12-78); ANION GAP 4 MEQ/L (5-15); AST (GOT) 20 U/L (15-37); BICARBONATE 30.5 MEQ/L (21.0-32.0); BLOOD UREA NITROGEN 21 MG/DL (7-18); CHLORIDE 101 MEQ/L (98-107); GLOMERULAR FILTRATION RATE 95 ML/MIN (>89); MAGNESIUM 2.3 MG/DL (1.5-2.5); POTASSIUM 4.6 MEQ/L (3.5-5.1); SODIUM (NA) 135 MEQ/L (136-145)
[2015-12-12 04:37] LABS: ALKALINE PHOSPHATASE 100 U/L (45-117); TOTAL BILIRUBIN ADULT 0.7 MG/DL (0.2-1.0)
[2015-12-12] MEDS: ACETAMINOPHEN 325 MG TAB PO PRN (04:47)
[2015-12-12] MEDS: PIPERACIL-TAZO 4.5 GM PREMIX 100 ML IV SCH ×4 (04:47→21:04)
[2015-12-12] MEDS: METOCLOPRAMIDE HCL 10 MG/2 ML VIAL IV PUSH SCH ×3 (04:48→20:30)
--- NOTE | 2015-12-12 05:32 | RADRPT ---
EXAM DATE/TIME: 12/12/2015 04:26 [facility] COMPARISON: CHEST SINGLE AP, December 11, 2015, 5:27. INDICATIONS : Shortness of breath. MEDICAL HISTORY : Unobtainable. SURGICAL HISTORY : Unobtainable. ENCOUNTER: Subsequent ACUITY: 1 week PAIN SCORE: Non-responsive. LOCATION: Bilateral chest FINDINGS: There is slight improved aeration of the left lung a persistent consolidation remains bilaterally. En dotracheal tube tip at the level of the clavicles. NG tube courses beneath the diaphragm. EKG leads o verlie the chest. There is cardiomegaly. There is mild patient rotation to the left. CONCLUSION: Mild improved aeration of left lung. Dar Mendoza MD on December 12, 2015 at 5:30 Board Certified Radiologist. This report was verified electronically.
[2015-12-12] MEDS: INSULIN NovoLIN REGULAR SUPPLEMENTAL SCALE SQ SCH ×3 (05:35→17:45)
[2015-12-12] MEDS: RANITIDINE HCL 150 MG TAB PO SCH ×2 (07:49→21:00)
[2015-12-12] MEDS: METOPROLOL TARTRATE 25 MG TAB PO SCH ×2 (07:49→21:00)
[2015-12-12] MEDS: ENOXAPARIN SODIUM 30 MG/0.3 ML SYRINGE SQ SCH ×2 (07:50→20:30)
[2015-12-12] MEDS: THIAMINE HCL 100 MG TAB PO SCH (07:50)
[2015-12-12] MEDS: levETIRAcetam 500MG PREMIX INJ 100 ML IV SCH ×2 (07:50→20:30)
[2015-12-12] MEDS: LACTULOSE SYRUP 20 GM/30 ML CUP PO SCH ×5 (07:50→21:00)
[2015-12-12] MEDS: MIDAZOLAM 100 MG/ML INJ 100 ML IV SCH (07:53)
[2015-12-12] MEDS: CHLORHEXIDINE 0.12% (ORAL KIT) 15 ML CUP MT SCH ×2 (08:00→20:00)
[2015-12-12] MEDS: VANCOMYCIN INJ 1,300 MG in SODIUM CHLORID 0.9% 500 ML INJ 500 ML IV SCH ×2 (08:26→21:05)
[2015-12-12] MEDS: POLYETHYLENE GLYCOL 17 GM PKG PO/NG SCH ×2 (08:27→21:00)
[2015-12-12] MEDS: ARTIFICIAL TEARS OPTH SOLN 15 ML BTL EACH EYE SCH ×3 (08:27→17:46)
[2015-12-12] MEDS: THIAMINE HCL 100 MG TAB PO/NG SCH (08:27)
[2015-12-12] MEDS: SODIUM CHLORIDE 0.9% FLUSH 5 ML FLUSH IVF SCH ×2 (08:27→20:31)
[2015-12-12] MEDS: BACITRACIN TOP OINT 15 GM TUBE TOP SCH ×2 (08:28→21:06)
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
[2015-12-12] MEDS: LEVOFLOXACIN 750 MG PREMIX INJ 150 ML IV SCH (10:10)
[2015-12-12] MEDS: fentaNYL DRIP 250 ML IV SCH (11:37)
[2015-12-12] MEDS: SENNOSIDES SYRUP 8.8 MG/5 ML CUP TUBE SCH (12:30)
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
[2015-12-12] MEDS ORDERED: MISC INFORMATION OTHER ONE (13:00)
--- NOTE | 2015-12-12 16:03 | RADRPT ---
EXAM DATE/TIME: 12/12/2015 15:12 [facility] COMPARISON: No previous studies available for comparison. INDICATIONS: Ileus. MEDICAL HISTORY: None. SURGICAL HISTORY: None. ENCOUNTER: Initial ACUITY: 1 week PAIN SCORE: Non-responsive. LOCATION: Bilateral abdomen FINDINGS: Nasogastric tube is across the GE junction. There is moderate gas distention of predominantly large bowel with some small bowel distention as well. Gas is seen in descending colon and rectum. There is no free air. CONCLUSION: Gas distention, probably ileus. Chi Lloyd MD FACR on December 12, 2015 at 15:57 Board Certified Radiologist. This report was verified electronically.
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
[2015-12-12] MEDS ORDERED: PHARMACY ORDERED LAB XX ONE (20:45)
--- NOTE | 2015-12-12 22:21 | MR ---
cc: ALYSON ARBOLEDA MD DATE 12/12/2015 PROCEDURE Bronchoscopy PRE PROCEDURE DIAGNOSIS Left lung infiltrate. POST PROCEDURE DIAGNOSIS Mucus plugs removed. Patent left lung bronchial stent. PROCEDURE DETAILS Informed consent was obtained from the patient's . The procedure and the complications were explained. She consented for the procedure. The patient is already intubated, sedated with Versed and Diprivan. Bronchoscopy done through endotracheal tube. Main sherrie is sharp. Bronchoscope was advanced to the right lung. A small amount of mucous was suctioned. There were biliary type secretions suctioned. The right upper, middle, lower lobes were patent. Then bronchoscope was advanced to the left lung. Bronchial stent was seen. There was a lot of mucus plugs removed and thick mucous was suctioned. Mucosa is excoriated. No bronchial obstruction was seen. Endotracheal tube was pulled. back as it was sitting on sherrie when the tube was moved there was a gush of biliary secretions in the lungs which was suctioned out. Bronchial washings sent for cultures. PLAN The patient tolerated the procedure well. After the procedure, he was put back on the ventilator. I discussed with Dr. Henriquez possibility of tracheoesophageal fistula. He will consult GI. Further treatment will depend on the course in the hospital. He will consult GI. MD PRESTON Ochoa/JEET /6:09 PM /10:07 PM MARCOS
[2015-12-13] VITALS (18 sets, daily range): BP systolic 125–162; BP diastolic 60–67; PULSE 80–103; RESP 16–21; TEMP 98.2–101.1; O2SAT 95–100
[2015-12-13] MEDS: SENNOSIDES SYRUP 8.8 MG/5 ML CUP TUBE SCH ×2 (00:23→11:33)
[2015-12-13] MEDS: FREE WATER OG SCH ×3 (00:23→17:23)
[2015-12-13] MEDS: fentaNYL DRIP 250 ML IV SCH (00:29)
[2015-12-13] MEDS: MIDAZOLAM 100 MG/ML INJ 100 ML IV SCH (00:29)
[2015-12-13] MEDS: DEXT 5%-NACL 0.9% 1000 ML INJ 1,000 ML IV SCH ×2 (01:24→19:57)
[2015-12-13] MEDS: RESP: ALBUTEROL 2.5 MG/IPRATROPIUM 0.5 MG NEB (SCH) INH ×6 (03:51→23:41)
[2015-12-13] MEDS: RESP: SODIUM CHLORIDE 3% 4 ML NEB NEB SCH ×6 (03:51→23:41)
[2015-12-13] MEDS: CHLORHEXIDINE GLUCONATE 2 % 1 PACK (2 CLOTHS) TOP SCH (04:00)
[2015-12-13] MEDS: PIPERACIL-TAZO 4.5 GM PREMIX 100 ML IV SCH ×3 (04:43→16:18)
[2015-12-13] MEDS: METOCLOPRAMIDE HCL 10 MG/2 ML VIAL IV PUSH SCH ×3 (04:44→20:26)
[2015-12-13 04:45] LABS: AUTOMATED NEUTROPHIL # 5.5 TH/MM3 (1.8-7.7); BASOPHIL # 0.1 TH/MM3 (0-0.2); BASOPHIL % 0.9 % (0.0-2.0); EOSINOPHIL # 0.2 TH/MM3 (0-0.4); EOSINOPHIL % 3.2 % (0.0-4.0); HEMATOCRIT 28.1 % (39.0-51.0); LYMPH % 15.6 % (9.0-44.0); LYMPHOCYTE # 1.2 TH/MM3 (1.0-4.8); MEAN CELL VOLUME 97.4 FL (80.0-100.0); MEAN CORPUSCULAR HEMOGLOBIN 32.6 PG (27.0-34.0); MEAN CORPUSCULAR HGB CONC 33.5 % (32.0-36.0); MONO % 8.7 % (0.0-8.0); NEUT % 71.6 % (16.0-70.0); PLATELET COUNT 290 TH/MM3 (150-450); RED BLOOD COUNT 2.88 MIL/MM3 (4.50-5.90); WHITE BLOOD COUNT 7.6 TH/MM3 (4.0-11.0)
--- NOTE | 2015-12-13 04:56 | RADRPT ---
EXAM DATE/TIME: 12/13/2015 04:12 [facility] COMPARISON: CHEST SINGLE AP, December 12, 2015, 4:26. INDICATIONS : Shortness of breath. MEDICAL HISTORY : Unobtainable. SURGICAL HISTORY : Unobtainable ENCOUNTER: Subsequent ACUITY: 1 week PAIN SCORE: Non-responsive. LOCATION: Bilateral chest FINDINGS: There is consolidation in the left mid to upper lung and right medial lung base. There is slight impr paul aeration of the left lower lobe today but increasing consolidation in the left upper lobe. Endot delia tube and NG tube are again seen. CONCLUSION: Increasing left upper lobe consolidation. Dar Mendoza MD on December 13, 2015 at 4:54 Board Certified Radiologist. This report was verified electronically.
[2015-12-13 05:00] LABS: ALT (GPT) 19 U/L (12-78); ANION GAP 5 MEQ/L (5-15); AST (GOT) 33 U/L (15-37); BICARBONATE 28.5 MEQ/L (21.0-32.0); BLOOD UREA NITROGEN 18 MG/DL (7-18); CHLORIDE 103 MEQ/L (98-107); GLOMERULAR FILTRATION RATE 102 ML/MIN (>89); MAGNESIUM 2.3 MG/DL (1.5-2.5); POTASSIUM 5.1 MEQ/L (3.5-5.1); SODIUM (NA) 136 MEQ/L (136-145)
[2015-12-13 05:02] LABS: ALKALINE PHOSPHATASE 104 U/L (45-117); TOTAL BILIRUBIN ADULT 0.6 MG/DL (0.2-1.0)
[2015-12-13] MEDS: INSULIN NovoLIN REGULAR SUPPLEMENTAL SCALE SQ SCH ×4 (05:20→17:23)
[2015-12-13 05:31] LABS: HEMO FLAGS AUTO DIFF
[2015-12-13 05:44] LABS: BANDS 28 % (0-6); DOHLE BODIES PRESENT (NONE SEEN); EOSINOPHILS 2 % (0-4); NEUTROPHIL # MANUAL DIFF 5.2 TH/MM3 (1.8-7.7); PLATELET ESTIMATE SMEAR NORMAL (NORMAL); PLATELET MORPHOLOGY NORMAL (NORMAL); POLYS (SEG NEUTROPHILS) 41 % (16-70); SCAN/DIFF FINAL DIFF MANUAL; TOXIC GRANULATION 2+ (NORMAL); WBC DIFF SAMPLE 100
[2015-12-13] MEDS: ENOXAPARIN SODIUM 30 MG/0.3 ML SYRINGE SQ SCH (07:37)
[2015-12-13] MEDS: CHLORHEXIDINE 0.12% (ORAL KIT) 15 ML CUP MT SCH ×2 (07:38→19:58)
[2015-12-13] MEDS: ARTIFICIAL TEARS OPTH SOLN 15 ML BTL EACH EYE SCH ×3 (08:09→17:23)
[2015-12-13] MEDS: POLYETHYLENE GLYCOL 17 GM PKG PO/NG SCH ×2 (08:10→19:59)
[2015-12-13] MEDS: VANCOMYCIN INJ 1,300 MG in SODIUM CHLORID 0.9% 500 ML INJ 500 ML IV SCH ×2 (08:10→19:57)
[2015-12-13] MEDS: RANITIDINE HCL 150 MG TAB PO SCH ×2 (08:10→19:59)
[2015-12-13] MEDS: THIAMINE HCL 100 MG TAB PO SCH (08:10)
[2015-12-13] MEDS: METOPROLOL TARTRATE 25 MG TAB PO SCH ×2 (08:10→19:59)
[2015-12-13] MEDS: LACTULOSE SYRUP 20 GM/30 ML CUP PO SCH ×4 (08:10→19:58)
[2015-12-13] MEDS: LEVOFLOXACIN 750 MG PREMIX INJ 150 ML IV SCH (08:10)
[2015-12-13] MEDS: levETIRAcetam 500MG PREMIX INJ 100 ML IV SCH ×2 (08:10→19:57)
[2015-12-13] MEDS: THIAMINE HCL 100 MG TAB PO/NG SCH (08:11)
[2015-12-13] MEDS: SODIUM CHLORIDE 0.9% FLUSH 5 ML FLUSH IVF SCH ×2 (08:11→19:58)
[2015-12-13] MEDS: BACITRACIN TOP OINT 15 GM TUBE TOP SCH ×2 (08:11→19:59)
[2015-12-13] MEDS ORDERED: ACETAMINOPHEN 1000 MG/100 ML VIAL IV PRN (08:45)
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
[2015-12-13] MEDS ORDERED: PROPOFOL 200 MG/20 ML AMP IV PUSH ONE (12:56)
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
[2015-12-13] MEDS ORDERED: MISC INFORMATION OTHER ONE (14:30)
[2015-12-13] MEDS ORDERED: FLUMAZENIL 0.5 MG/5 ML VIAL ONE (15:06)
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
[2015-12-13] MEDS ORDERED: FLUMAZENIL 0.5 MG/5 ML VIAL IV PUSH ONE (16:00)
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
[2015-12-13] MEDS: PROPOFOL 1000 MG/100 ML INJ 100 ML IV SCH (19:58)
--- NOTE | 2015-12-13 21:08 | MG ---
cc: LUIS M CASTELLNAOS Lab No: [id number] Date: 12/13/15 Age:74 Sex: M Race: Fentanyl was turned off. A 74 year old man, obstructive sleep apnea. Zantac Lovenox Vancomycin Diffuse 5 Hz slowing is noted. The recording overall is synchronous and symmetric. An occasional diffuse delta slowing is seen. I did not see any hemisphere asymmetries. Photic stimulation is performed without significant posterior driving. Hyperventilation is not performed. IMPRESSION Diffuse theta slowing consistent with a moderate diffuse encephalopathy. No focal abnormality was noted. No seizure activity is seen. MD RAQUEL Cohen/ /8:41 PM /9:02 PM
[2015-12-14] VITALS (21 sets, daily range): BP systolic 141–167; BP diastolic 63–79; PULSE 74–88; RESP 17–24; TEMP 97.7–99.1; O2SAT 96–100
[2015-12-14] MEDS: PIPERACIL-TAZO 4.5 GM PREMIX 100 ML IV SCH ×5 (00:24→21:18)
[2015-12-14] MEDS: PROPOFOL 1000 MG/100 ML INJ 100 ML IV SCH ×5 (00:25→23:11)
[2015-12-14] MEDS: SENNOSIDES SYRUP 8.8 MG/5 ML CUP TUBE SCH ×3 (00:30→23:11)
[2015-12-14] MEDS: FREE WATER OG SCH ×3 (00:36→16:43)
[2015-12-14] MEDS: RESP: ALBUTEROL 2.5 MG/IPRATROPIUM 0.5 MG NEB (SCH) INH ×5 (03:23→20:43)
[2015-12-14] MEDS: RESP: SODIUM CHLORIDE 3% 4 ML NEB NEB SCH ×5 (03:23→20:43)
[2015-12-14] MEDS: CHLORHEXIDINE GLUCONATE 2 % 1 PACK (2 CLOTHS) TOP SCH (04:00)
[2015-12-14] MEDS: fentaNYL DRIP 250 ML IV SCH (04:09)
[2015-12-14] MEDS: METOCLOPRAMIDE HCL 10 MG/2 ML VIAL IV PUSH SCH ×3 (04:09→20:17)
[2015-12-14] MEDS: INSULIN NovoLIN REGULAR SUPPLEMENTAL SCALE SQ SCH ×4 (06:00→17:09)
[2015-12-14] MEDS: CHLORHEXIDINE 0.12% (ORAL KIT) 15 ML CUP MT SCH ×2 (08:00→20:00)
[2015-12-14] MEDS: VANCOMYCIN INJ 1,300 MG in SODIUM CHLORID 0.9% 500 ML INJ 500 ML IV SCH ×2 (08:34→20:16)
[2015-12-14] MEDS: LEVOFLOXACIN 750 MG PREMIX INJ 150 ML IV SCH (08:34)
[2015-12-14] MEDS: levETIRAcetam 500MG PREMIX INJ 100 ML IV SCH ×2 (08:34→20:16)
[2015-12-14] MEDS: ARTIFICIAL TEARS OPTH SOLN 15 ML BTL EACH EYE SCH ×3 (08:35→16:59)
[2015-12-14] MEDS: THIAMINE HCL 100 MG TAB PO SCH (08:35)
[2015-12-14] MEDS: RANITIDINE HCL 150 MG TAB PO SCH ×2 (08:35→20:17)
[2015-12-14] MEDS: POLYETHYLENE GLYCOL 17 GM PKG PO/NG SCH ×2 (08:35→20:16)
[2015-12-14] MEDS: LACTULOSE SYRUP 20 GM/30 ML CUP PO SCH ×4 (08:35→20:17)
[2015-12-14] MEDS: METOPROLOL TARTRATE 25 MG TAB PO SCH ×2 (08:35→20:16)
[2015-12-14] MEDS: SODIUM CHLORIDE 0.9% FLUSH 5 ML FLUSH IVF SCH ×2 (08:35→20:17)
[2015-12-14] MEDS: BACITRACIN TOP OINT 15 GM TUBE TOP SCH ×2 (08:36→20:17)
[2015-12-14] MEDS: THIAMINE HCL 100 MG TAB PO/NG SCH (08:36)
[2015-12-14] MEDS ORDERED: GLUCAGON 1 MG/ML VIAL ONE (14:12)
[2015-12-14] MEDS ORDERED: METOCLOPRAMIDE HCL 10 MG/2 ML VIAL ONE (14:28)
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
[2015-12-14] MEDS ORDERED: fentaNYL CITRATE 250 MCG/5 ML AMP IV PUSH ONE (14:45)
[2015-12-14] MEDS ORDERED: VECURONIUM BROMIDE 10 MG VIAL IV PUSH ONE (14:45)
[2015-12-14] MEDS ORDERED: MIDAZOLAM HCL 5 MG/5 ML VIAL IV PUSH ONE (14:45)
[2015-12-14] MEDS ORDERED: IOHEXOL 350 MG/ML 50 ML BTL (for RAD DIAG) G-TUBE ONE (14:55)
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
--- NOTE | 2015-12-14 16:16 | RADRPT ---
EXAM DATE/TIME: 12/14/2015 15:56 [facility] COMPARISON: CHEST SINGLE AP, December 13, 2015, 4:12. INDICATIONS: Tracheostomy placement. MEDICAL HISTORY: None. SURGICAL HISTORY: None. ENCOUNTER: Initial ACUITY: 1 week PAIN SCORE: Non-responsive. LOCATION: Bilateral chest FINDINGS: Trach tube is in good position. Patchy airspace disease remains in the left upper lobe. There is no pneumothorax. The lungs remain underaerated. There continues to be cardiomegaly with mild intersti tial edema. CONCLUSION: Trach tube is in good position. Chi Lloyd MD FACR on December 14, 2015 at 16:09 Board Certified Radiologist. This report was verified electronically.
--- NOTE | 2015-12-14 16:19 | PD.PROCEDR ---
Procedure Note Procedure Procedure: Bronchoscopy for percutaneous tracheostomy guidance Indication: Respiratory failure / tracheostomy placement Description: Pt premedicated with Fentanyl and Propofol continuous infusion. Additional bolus of Versed, fentanyl and Vecuronium given. Bronchoscope introduced into the 8.0 ETT and airways inspected and minimal secretions suctioned out. Bronchoscope then placed at end of ETT and ETT along with bronchoscopy pulled back to 16 cm at the lips. Introducer tracheostomy needle and guidewire then visualized entering anterior aspect of trachea, without damage to the posterior wall. #8 tracheostomy tube was then seen entering trachea over guidewire, after dilation. Bronchoscope was then placed within new tracheostomy to verify that inner lumen was within tracheal airway. Pt tolerated procedure well with no acute complications noted. Postprocedure a small amount of bubbling noted indicating a leak around the tracheostomy cuff. Additional air was introduced into the cuff and tidal volume was reduced with significant reduction in the leak. Postprocedure bronchoscopy done to remove blood. Significant inflammation most likely chronic noted in the left main bronchus-see Dr. Ross' s previous bronchoscopy note. Carlie Henriquez MD Dec 14, 2015 16:19
[2015-12-14] MEDS: DEXT 5%-NACL 0.9% 1000 ML INJ 1,000 ML IV SCH (16:59)
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
[2015-12-15] VITALS (20 sets, daily range): BP systolic 136–198; BP diastolic 62–102; PULSE 80–96; RESP 17–30; TEMP 99–100.9; O2SAT 92–100
[2015-12-15] MEDS: RESP: SODIUM CHLORIDE 3% 4 ML NEB NEB SCH ×3 (00:21→08:46)
[2015-12-15] MEDS: RESP: ALBUTEROL 2.5 MG/IPRATROPIUM 0.5 MG NEB (SCH) INH ×2 (00:21→03:35)
[2015-12-15] MEDS: LABETALOL HCL 100 MG/20 ML VIAL IV PUSH PRN ×2 (01:14→21:30)
[2015-12-15] MEDS: PROPOFOL 1000 MG/100 ML INJ 100 ML IV SCH ×3 (01:14→10:53)
[2015-12-15] MEDS: FREE WATER OG SCH ×2 (01:14→09:09)
[2015-12-15] MEDS: CHLORHEXIDINE GLUCONATE 2 % 1 PACK (2 CLOTHS) TOP SCH (04:00)
[2015-12-15 04:26] LABS: AUTOMATED NEUTROPHIL # 6.1 TH/MM3 (1.8-7.7); BASOPHIL % 0.4 % (0.0-2.0); EOSINOPHIL # 0.2 TH/MM3 (0-0.4); EOSINOPHIL % 2.5 % (0.0-4.0); HEMATOCRIT 27.3 % (39.0-51.0); HEMO FLAGS DIFF FINAL; LYMPH % 9.5 % (9.0-44.0); LYMPHOCYTE # 0.7 TH/MM3 (1.0-4.8); MEAN CELL VOLUME 99.2 FL (80.0-100.0); MEAN CORPUSCULAR HEMOGLOBIN 33.7 PG (27.0-34.0); MEAN CORPUSCULAR HGB CONC 33.9 % (32.0-36.0); MONO % 5.9 % (0.0-8.0); NEUT % 81.7 % (16.0-70.0); PLATELET COUNT 316 TH/MM3 (150-450); RED BLOOD COUNT 2.75 MIL/MM3 (4.50-5.90); WHITE BLOOD COUNT 7.5 TH/MM3 (4.0-11.0)
[2015-12-15] MEDS: fentaNYL DRIP 250 ML IV SCH ×2 (04:39→23:52)
[2015-12-15] MEDS: PIPERACIL-TAZO 4.5 GM PREMIX 100 ML IV SCH ×4 (04:39→23:47)
[2015-12-15] MEDS: METOCLOPRAMIDE HCL 10 MG/2 ML VIAL IV PUSH SCH ×3 (04:39→21:26)
[2015-12-15 04:54] LABS: ALKALINE PHOSPHATASE 99 U/L (45-117); ALT (GPT) 16 U/L (12-78); ANION GAP 6 MEQ/L (5-15); AST (GOT) 21 U/L (15-37); BICARBONATE 30.1 MEQ/L (21.0-32.0); BLOOD UREA NITROGEN 12 MG/DL (7-18); CHLORIDE 103 MEQ/L (98-107); GLOMERULAR FILTRATION RATE 129 ML/MIN (>89); MAGNESIUM 2.3 MG/DL (1.5-2.5); POTASSIUM 4.1 MEQ/L (3.5-5.1); SODIUM (NA) 139 MEQ/L (136-145); TOTAL BILIRUBIN ADULT 0.4 MG/DL (0.2-1.0)
--- NOTE | 2015-12-15 05:34 | RADRPT ---
EXAM DATE/TIME: 12/15/2015 04:47 [facility] COMPARISON: CHEST SINGLE AP, December 14, 2015, 15:56. INDICATIONS : Evaluate for pulmonary disease. MEDICAL HISTORY : None. SURGICAL HISTORY : None. ENCOUNTER: Subsequent ACUITY: 1 week PAIN SCORE: Non-responsive. LOCATION: Bilateral chest FINDINGS: Left main stem bronchial stent suspected. Tracheostomy tube noted. There is patchy consolidative opac ity noted bilaterally. There is cardiomegaly. Left apical pleural thickening noted. CONCLUSION: No significant change has occurred. Dar Mendoza MD on December 15, 2015 at 5:30 Board Certified Radiologist. This report was verified electronically.
[2015-12-15] MEDS: INSULIN NovoLIN REGULAR SUPPLEMENTAL SCALE SQ SCH ×4 (06:00→18:00)
[2015-12-15] MEDS: CHLORHEXIDINE 0.12% (ORAL KIT) 15 ML CUP MT SCH ×2 (08:00→20:57)
[2015-12-15] MEDS: RESP: ALBUTEROL 2.5 MG/IPRATROPIUM 0.5 MG NEB (PRN) INH (08:46)
[2015-12-15] MEDS: THIAMINE HCL 100 MG TAB PO/NG SCH (09:00)
[2015-12-15] MEDS: METOPROLOL TARTRATE 25 MG TAB PO SCH ×2 (09:07→21:27)
[2015-12-15] MEDS: RANITIDINE HCL 150 MG TAB PO SCH ×2 (09:07→22:01)
[2015-12-15] MEDS: LACTULOSE SYRUP 20 GM/30 ML CUP PO SCH ×4 (09:07→21:26)
[2015-12-15] MEDS: THIAMINE HCL 100 MG TAB PO SCH (09:07)
[2015-12-15] MEDS: SODIUM CHLORIDE 0.9% FLUSH 5 ML FLUSH IVF SCH ×2 (09:08→21:26)
[2015-12-15] MEDS: VANCOMYCIN INJ 1,300 MG in SODIUM CHLORID 0.9% 500 ML INJ 500 ML IV SCH ×2 (09:08→21:26)
[2015-12-15] MEDS: ARTIFICIAL TEARS OPTH SOLN 15 ML BTL EACH EYE SCH ×3 (09:08→18:00)
[2015-12-15] MEDS: POLYETHYLENE GLYCOL 17 GM PKG PO/NG SCH ×2 (09:08→22:01)
[2015-12-15] MEDS: BACITRACIN TOP OINT 15 GM TUBE TOP SCH ×2 (09:08→21:27)
[2015-12-15] MEDS: LEVOFLOXACIN 750 MG PREMIX INJ 150 ML IV SCH (09:08)
[2015-12-15] MEDS: levETIRAcetam 500MG PREMIX INJ 100 ML IV SCH ×2 (09:08→21:26)
[2015-12-15] MEDS: RESP: ALBUTEROL 2.5 MG/IPRATROPIUM 0.5 MG NEB (SCH) NEB ×3 (09:45→21:51)
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
[2015-12-15] MEDS ORDERED: DIATRIZOATE MEGLUM/DIATRIZOATE SOD 9 ML CUP PO ONE (11:15)
[2015-12-15] MEDS: SENNOSIDES SYRUP 8.8 MG/5 ML CUP TUBE SCH (11:54)
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
[2015-12-15] MEDS ORDERED: ROCURONIUM INJ 50 MG/5 ML VIAL IV ONE (14:30)
[2015-12-15] MEDS ORDERED: IOHEXOL 350 MG/ML 10 ML VIAL (for RAD DIAG) IV ONE (14:56)
--- NOTE | 2015-12-15 15:07 | RADRPT ---
EXAM DATE/TIME: 12/15/2015 14:36 [facility] COMPARISON: No previous studies available for comparison. INDICATIONS : Anemia, Evaluate for tracheoesophageal fistula. IV CONTRAST: 96 cc Omnipaque 350 (iohexol) IV ; Cumulative dose for multiple exams. ORAL CONTRAST: Prescribed oral contrast ingested. RADIATION DOSE: 5.73 CTDIvol (mGy) ; Combined studies - Thorax/Abdomen/Pelvis MEDICAL HISTORY : Cardiovascular disease. Hypertension. SURGICAL HISTORY : None. ENCOUNTER: Initial ACUITY: 1 day PAIN SCALE: Non-responsive LOCATION: abdomen TECHNIQUE: Volumetric scanning of the abdomen and pelvis was performed. Using automated exposure control and ad justment of the mA and/or kV according to patient size, radiation dose was kept as low as reasonably achievable to obtain optimal diagnostic quality images. FINDINGS: LOWER LUNGS: Small bilateral pleural effusions and bibasilar consolidation. LIVER: Homogeneous density without lesion. There is no dilation of the biliary tree. No calcified gallston es. SPLEEN: Normal size without lesion. PANCREAS: Within normal limits. KIDNEYS: Perinephric stranding. Normal in size and shape. There is no mass, stone or hydronephrosis. ADRENAL GLANDS: Within normal limits. VASCULAR: There is no aortic aneurysm. BOWEL/MESENTERY: Pain tube and feeding tube seen.. There is no free intraperitoneal air or fluid. ABDOMINAL WALL: Within normal limits. RETROPERITONEUM: There is no lymphadenopathy. BLADDER: No wall thickening or mass. REPRODUCTIVE: Within normal limits. INGUINAL: There is no lymphadenopathy or hernia. MUSCULOSKELETAL: Diffuse anasarca. CONCLUSION: 1. Bilateral pleural effusions and bibasilar consolidation. 2. Perinephric stranding, nonspecific. 3. Anasarca. 4. Thank you and feeding tube seen. José Miguel Kramer MD on December 15, 2015 at 14:58 Board Certified Radiologist. This report was verified electronically.
--- NOTE | 2015-12-15 15:22 | RADRPT ---
EXAM DATE/TIME: 12/15/2015 14:36 [facility] COMPARISON: CHEST SINGLE AP, December 13, 2015, 4:12. CHEST SINGLE AP, December 14, 2015, 15:56. CHEST SINGLE AP, December 15, 2015, 4:47. INDICATIONS : Evaluate for tracheoesophageal fistula. IV CONTRAST: 96 cc Omnipaque 350 (iohexol) IV ; Cumulative dose for multiple exams. RADIATION DOSE: 5.73 CTDIvol (mGy) ; Combined studies - Thorax/Abdomen/Pelvis MEDICAL HISTORY : Cardiovascular disease. Hypertension. SURGICAL HISTORY : None. ENCOUNTER: Initial ACUITY: 1 day PAIN SCALE: Non-responsive LOCATION: chest TECHNIQUE: Volumetric scanning of the chest was performed. Using automated exposure control and adjustment of t he mA and/or kV according to patient size, radiation dose was kept as low as reasonably achievable to obtain optimal diagnostic quality images. FINDINGS: LUNGS: There is scattered probable infiltrates of both lung lemons, left greater than right. There is a smal l right-sided pleural effusion. There is some pleural thickening in the left lower lung. No evidence of pneumothorax.PLEURA: Small right-sided pleural effusion. Pleural thickening on the left side. MEDIASTINUM: There is a tracheostomy tube in place which appears to be in good position. There is an expandable st ent in the left mainstem bronchus which appears to be patent. There is air in the upper thoracic esop hagus without evidence of any definite tracheal esophageal fistula. The esophagus becomes nonvisualiz ed at the sherrie and remains nonvisualized down to the GE junction. AXILLAE: Within normal limits. No lymphadenopathy. SKELETAL: Within normal limits for patient age. MISCELLANEOUS: There is a gastrostomy tube in the stomach. There are splenic granulomas. CONCLUSION: 1. There is an expandable stent in the left mainstem bronchus which appears to be patent. 2. No definite evidence of a tracheoesophageal fistula seen. 3. Scattered bilateral parenchymal infiltrates, left greater than right. 4. Small right-sided effusion. Hu Reyes MD on December 15, 2015 at 15:13 Board Certified Radiologist. This report was verified electronically.
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
[2015-12-16] VITALS (19 sets, daily range): BP systolic 131–169; BP diastolic 69–91; PULSE 80–99; RESP 15–23; TEMP 98.6–100.6; O2SAT 92–98
[2015-12-16] MEDS: SENNOSIDES SYRUP 8.8 MG/5 ML CUP TUBE SCH ×2 (00:23→00:30)
[2015-12-16 01:58] LABS: BLOOD GAS BASE EXCESS 4.9 mmol/L (-2-2); BLOOD GAS CARBOXYHEMOGLOBIN 1.1 % (0-4); BLOOD GAS HCO3 30 mmol/L (22-26); BLOOD GAS METHEMOGLOBIN 0.9 % (0-2); BLOOD GAS O2 HGB SATURATION 93 % (90-100); BLOOD GAS OXYGEN CONTENT 13.3 Vol % (12.0-20.0); BLOOD GAS PCO2 48 mmHg (38-42); BLOOD GAS PO2 81 mmHg (61-120); BLOOD GAS TOTAL HGB 10.1 G/DL (12.0-16.0); TEMP CORR TO 98.6
[2015-12-16 01:59] LABS: CRITICAL VALUE NO; OXYGEN DEVICE VENTILATOR
[2015-12-16 02:00] LABS: FIO2 50 %; VENT SETTINGS AC/14/500/PEEP7
[2015-12-16 02:01] LABS: DRAW SITE RT RADIAL; NUMBER OF ARTERIAL PUNCTURES 1; STAT YES; ULNAR PULSE PRESENT
[2015-12-16] MEDS: CHLORHEXIDINE GLUCONATE 2 % 1 PACK (2 CLOTHS) TOP SCH (04:12)
[2015-12-16] MEDS: RESP: ALBUTEROL 2.5 MG/IPRATROPIUM 0.5 MG NEB (SCH) NEB ×4 (04:18→20:13)
[2015-12-16 04:44] LABS: AUTOMATED NEUTROPHIL # 7.4 TH/MM3 (1.8-7.7); BASOPHIL % 0.3 % (0.0-2.0); EOSINOPHIL # 0.2 TH/MM3 (0-0.4); EOSINOPHIL % 1.9 % (0.0-4.0); HEMATOCRIT 29.4 % (39.0-51.0); LYMPH % 9.1 % (9.0-44.0); LYMPHOCYTE # 0.8 TH/MM3 (1.0-4.8); MEAN CELL VOLUME 98.2 FL (80.0-100.0); MEAN CORPUSCULAR HEMOGLOBIN 32.2 PG (27.0-34.0); MEAN CORPUSCULAR HGB CONC 32.8 % (32.0-36.0); MONO % 5.7 % (0.0-8.0); PLATELET COUNT 361 TH/MM3 (150-450); RED CELL DISTRIBUTION WIDTH 13.9 % (11.6-17.2); WHITE BLOOD COUNT 8.9 TH/MM3 (4.0-11.0)
[2015-12-16 04:49] LABS: HEMO FLAGS AUTO DIFF
[2015-12-16 05:10] LABS: ANION GAP 7 MEQ/L (5-15); AST (GOT) 30 U/L (15-37); BICARBONATE 29.2 MEQ/L (21.0-32.0); BLOOD UREA NITROGEN 10 MG/DL (7-18); CHLORIDE 104 MEQ/L (98-107); GLOMERULAR FILTRATION RATE 107 ML/MIN (>89); POTASSIUM 3.8 MEQ/L (3.5-5.1); SODIUM (NA) 140 MEQ/L (136-145)
[2015-12-16 05:13] LABS: ALKALINE PHOSPHATASE 96 U/L (45-117); ALT (GPT) 16 U/L (12-78); TOTAL BILIRUBIN ADULT 0.5 MG/DL (0.2-1.0)
--- NOTE | 2015-12-16 05:35 | RADRPT ---
EXAM DATE/TIME: 12/16/2015 04:25 [facility] COMPARISON: CHEST SINGLE AP, December 15, 2015, 4:47. INDICATIONS : Evaluate for respiratory disease. MEDICAL HISTORY : None. SURGICAL HISTORY : None. ENCOUNTER: Subsequent ACUITY: 3 days PAIN SCORE: Non-responsive. LOCATION: chest FINDINGS: A single view of the chest demonstrates patchy airspace disease in the left lung, right upper lobe an d right lung base, not significantly changed. Tracheostomy tube unchanged. Left mainstem stent partia lly seen. Volume loss on left again seen. Heart enlarged. The cardiomediastinal contours are unremark able. Osseous structures are intact. CONCLUSION: Bilateral patchy airspace disease not significantly changed greater on the left. José Miguel Kramer MD on December 16, 2015 at 5:30 Board Certified Radiologist. This report was verified electronically.
[2015-12-16] MEDS: INSULIN NovoLIN REGULAR SUPPLEMENTAL SCALE SQ SCH ×4 (06:00→18:00)
[2015-12-16] MEDS: PIPERACIL-TAZO 4.5 GM PREMIX 100 ML IV SCH ×4 (06:30→21:58)
[2015-12-16] MEDS: METOCLOPRAMIDE HCL 10 MG/2 ML VIAL IV PUSH SCH ×3 (06:30→21:59)
[2015-12-16 06:50] LABS: BANDS 6 % (0-6); EOSINOPHILS 2 % (0-4); NEUTROPHIL # MANUAL DIFF 7.9 TH/MM3 (1.8-7.7); POLYS (SEG NEUTROPHILS) 83 % (16-70); WBC DIFF SAMPLE 100
[2015-12-16 06:51] LABS: PLATELET ESTIMATE SMEAR NORMAL (NORMAL); PLATELET MORPHOLOGY NORMAL (NORMAL); SCAN/DIFF FINAL DIFF MANUAL
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
[2015-12-16] MEDS: CHLORHEXIDINE 0.12% (ORAL KIT) 15 ML CUP MT SCH ×2 (08:00→20:00)
[2015-12-16] MEDS: THIAMINE HCL 100 MG TAB PO SCH (08:04)
[2015-12-16] MEDS: LACTULOSE SYRUP 20 GM/30 ML CUP PO SCH ×4 (08:04→21:00)
[2015-12-16] MEDS: METOPROLOL TARTRATE 25 MG TAB PO SCH ×2 (08:04→21:59)
[2015-12-16] MEDS: RANITIDINE HCL 150 MG TAB PO SCH ×2 (08:04→21:59)
[2015-12-16] MEDS: POLYETHYLENE GLYCOL 17 GM PKG PO/NG SCH ×2 (08:04→21:00)
[2015-12-16] MEDS: ARTIFICIAL TEARS OPTH SOLN 15 ML BTL EACH EYE SCH ×3 (08:05→17:54)
[2015-12-16] MEDS: BACITRACIN TOP OINT 15 GM TUBE TOP SCH ×2 (08:05→21:00)
[2015-12-16] MEDS: THIAMINE HCL 100 MG TAB PO/NG SCH (08:05)
[2015-12-16] MEDS: LEVOFLOXACIN 750 MG PREMIX INJ 150 ML IV SCH (08:05)
[2015-12-16] MEDS: SODIUM CHLORIDE 0.9% FLUSH 5 ML FLUSH IVF SCH ×2 (08:05→21:00)
[2015-12-16] MEDS: levETIRAcetam 500MG PREMIX INJ 100 ML IV SCH ×2 (08:05→21:58)
[2015-12-16] MEDS: VANCOMYCIN INJ 1,300 MG in SODIUM CHLORID 0.9% 500 ML INJ 500 ML IV SCH ×2 (08:05→22:00)
[2015-12-16] MEDS ORDERED: MIDAZOLAM HCL 5 MG/ML VIAL (1 ML) ONE (08:41)
[2015-12-16] MEDS ORDERED: MIDAZOLAM HCL 5 MG/5 ML VIAL IV STA (09:30)
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
--- NOTE | 2015-12-16 16:03 | RADRPT ---
EXAM DATE/TIME: 12/16/2015 14:57 [facility] COMPARISON: ABDOMEN KUB ONLY, December 12, 2015, 15:12. INDICATIONS : Abdominal distension MEDICAL HISTORY : None. SURGICAL HISTORY : None. ENCOUNTER: Subsequent ACUITY: 1 week PAIN SCORE: Non-responsive. LOCATION: Bilateral abdomen FINDINGS: Contrast is now seen in some of the colon which remains diffusely mildly distended. The bowel gas pat tern is not significantly changed compared to the prior study. No significant dilatation of the small bowel is seen. CONCLUSION: No significant change in the bowel gas pattern compared to the prior exam. Hu Reyes MD on December 16, 2015 at 15:59 Board Certified Radiologist. This report was verified electronically.
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
[2015-12-17] VITALS (19 sets, daily range): BP systolic 119–168; BP diastolic 65–90; PULSE 85–106; RESP 14–23; TEMP 97.9–99.3; O2SAT 94–98
[2015-12-17] MEDS: SENNOSIDES SYRUP 8.8 MG/5 ML CUP TUBE SCH ×3 (00:13→19:38)
[2015-12-17] MEDS: CHLORHEXIDINE GLUCONATE 2 % 1 PACK (2 CLOTHS) TOP SCH ×2 (00:13→19:38)
[2015-12-17] MEDS: RESP: ALBUTEROL 2.5 MG/IPRATROPIUM 0.5 MG NEB (SCH) NEB ×4 (04:52→20:24)
[2015-12-17] MEDS: INSULIN NovoLIN REGULAR SUPPLEMENTAL SCALE SQ SCH ×4 (06:00→17:18)
[2015-12-17] MEDS: PIPERACIL-TAZO 4.5 GM PREMIX 100 ML IV SCH ×4 (06:57→17:18)
[2015-12-17] MEDS: METOCLOPRAMIDE HCL 10 MG/2 ML VIAL IV PUSH SCH ×3 (06:58→21:29)
[2015-12-17] MEDS: METOPROLOL TARTRATE 25 MG TAB PO SCH ×3 (09:00→19:37)
[2015-12-17] MEDS: RANITIDINE HCL 150 MG TAB PO SCH ×3 (09:00→19:37)
[2015-12-17] MEDS: LACTULOSE SYRUP 20 GM/30 ML CUP PO SCH ×4 (09:00→19:37)
[2015-12-17] MEDS: THIAMINE HCL 100 MG TAB PO/NG SCH (09:00)
[2015-12-17] MEDS: THIAMINE HCL 100 MG TAB PO SCH ×2 (09:00→10:13)
[2015-12-17] MEDS: POLYETHYLENE GLYCOL 17 GM PKG PO/NG SCH ×2 (09:00→19:37)
[2015-12-17] MEDS: ARTIFICIAL TEARS OPTH SOLN 15 ML BTL EACH EYE SCH ×3 (10:12→17:00)
[2015-12-17] MEDS: levETIRAcetam 500MG PREMIX INJ 100 ML IV SCH ×2 (10:12→19:41)
[2015-12-17] MEDS: SODIUM CHLORIDE 0.9% FLUSH 5 ML FLUSH IVF SCH ×2 (10:13→19:36)
[2015-12-17] MEDS: VANCOMYCIN INJ 1,300 MG in SODIUM CHLORID 0.9% 500 ML INJ 500 ML IV SCH ×2 (10:13→19:41)
[2015-12-17] MEDS: CHLORHEXIDINE 0.12% (ORAL KIT) 15 ML CUP MT SCH ×2 (10:13→19:36)
[2015-12-17] MEDS: LEVOFLOXACIN 750 MG PREMIX INJ 150 ML IV SCH (10:13)
[2015-12-17] MEDS: BACITRACIN TOP OINT 15 GM TUBE TOP SCH ×2 (10:14→19:37)
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
[2015-12-17] MEDS: LABETALOL HCL 100 MG/20 ML VIAL IV PUSH PRN (15:18)
[2015-12-17] MEDS: fentaNYL DRIP 250 ML IV SCH (15:18)
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
[2015-12-17] MEDS: MIDAZOLAM HCL 2 MG/2 ML VIAL IV PUSH PRN (21:25)
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
[2015-12-18] VITALS (19 sets, daily range): BP systolic 129–161; BP diastolic 65–81; PULSE 84–104; RESP 14–22; TEMP 98.1–99.1; O2SAT 91–97
[2015-12-18] MEDS: PIPERACIL-TAZO 4.5 GM PREMIX 100 ML IV SCH ×5 (00:18→23:08)
[2015-12-18] MEDS: MIDAZOLAM HCL 2 MG/2 ML VIAL IV PUSH PRN ×2 (01:15→08:51)
[2015-12-18] MEDS: RESP: ALBUTEROL 2.5 MG/IPRATROPIUM 0.5 MG NEB (SCH) NEB ×4 (03:20→19:50)
[2015-12-18] MEDS: METOCLOPRAMIDE HCL 10 MG/2 ML VIAL IV PUSH SCH ×3 (04:43→21:35)
[2015-12-18 04:45] LABS: AUTOMATED NEUTROPHIL # 6.4 TH/MM3 (1.8-7.7); BASOPHIL % 0.6 % (0.0-2.0); EOSINOPHIL # 0.2 TH/MM3 (0-0.4); EOSINOPHIL % 2.1 % (0.0-4.0); HEMATOCRIT 29.3 % (39.0-51.0); HEMO FLAGS DIFF FINAL; LYMPH % 11.6 % (9.0-44.0); LYMPHOCYTE # 0.9 TH/MM3 (1.0-4.8); MEAN CELL VOLUME 98.5 FL (80.0-100.0); MEAN CORPUSCULAR HEMOGLOBIN 32.1 PG (27.0-34.0); MEAN CORPUSCULAR HGB CONC 32.6 % (32.0-36.0); MONO % 6.6 % (0.0-8.0); NEUT % 79.1 % (16.0-70.0); PLATELET COUNT 377 TH/MM3 (150-450); RED BLOOD COUNT 2.98 MIL/MM3 (4.50-5.90); WHITE BLOOD COUNT 8.1 TH/MM3 (4.0-11.0)
[2015-12-18 05:16] LABS: ALT (GPT) 14 U/L (12-78); ANION GAP 8 MEQ/L (5-15); AST (GOT) 19 U/L (15-37); BICARBONATE 29.7 MEQ/L (21.0-32.0); BLOOD UREA NITROGEN 15 MG/DL (7-18); CHLORIDE 103 MEQ/L (98-107); GLOMERULAR FILTRATION RATE 137 ML/MIN (>89); POTASSIUM 3.3 MEQ/L (3.5-5.1); SODIUM (NA) 141 MEQ/L (136-145)
[2015-12-18 05:17] LABS: ALKALINE PHOSPHATASE 70 U/L (45-117); TOTAL BILIRUBIN ADULT 0.6 MG/DL (0.2-1.0)
[2015-12-18] MEDS: INSULIN NovoLIN REGULAR SUPPLEMENTAL SCALE SQ SCH ×2 (05:20)
--- NOTE | 2015-12-18 06:10 | RADRPT ---
EXAM DATE/TIME: 12/18/2015 04:37 [facility] COMPARISON: CHEST SINGLE AP, December 16, 2015, 4:25. INDICATIONS : Evaluate for respiratory disease. MEDICAL HISTORY : None. SURGICAL HISTORY : None. ENCOUNTER: Subsequent ACUITY: 2 weeks PAIN SCORE: Non-responsive. LOCATION: Bilateral chest FINDINGS: Diffuse interstitial prominence and dense left lung consolidation again noted. Cardiomegaly, tracheos karol tube in left mainstem bronchus stent noted. CONCLUSION: No significant change has occurred. Dar Mendoza MD on December 18, 2015 at 6:07 Board Certified Radiologist. This report was verified electronically.
--- NOTE | 2015-12-18 06:10 | RADRPT ---
EXAM DATE/TIME: 12/18/2015 04:39 [facility] COMPARISON: ABDOMEN KUB ONLY, December 16, 2015, 14:57. INDICATIONS : GJ tube placement. MEDICAL HISTORY : None. SURGICAL HISTORY : None. ENCOUNTER: Subsequent ACUITY: 2 weeks PAIN SCORE: Non-responsive. LOCATION: Abdomen FINDINGS: There is contrast noted within mildly distended bowel loops. A temperature probe is seen overlying th e rectum. Gastrojejunostomy tube left midabdomen noted. Contrast extends to the rectosigmoid. No obvi ous extravasation. CONCLUSION: Contrast is seen within mildly distended bowel loops. Dar Mendoza MD on December 18, 2015 at 6:08 Board Certified Radiologist. This report was verified electronically.
[2015-12-18] MEDS: hydrALAZINE HCL 20 MG/ML VIAL IV PUSH PRN (06:32)
[2015-12-18] MEDS: CHLORHEXIDINE 0.12% (ORAL KIT) 15 ML CUP MT SCH ×2 (07:56→21:07)
[2015-12-18] MEDS: ARTIFICIAL TEARS OPTH SOLN 15 ML BTL EACH EYE SCH ×3 (08:00→18:11)
[2015-12-18] MEDS: levETIRAcetam 500MG PREMIX INJ 100 ML IV SCH ×2 (08:00→21:35)
[2015-12-18] MEDS: THIAMINE HCL 100 MG TAB PO/NG SCH (08:01)
[2015-12-18] MEDS: BACITRACIN TOP OINT 15 GM TUBE TOP SCH ×2 (08:01→21:00)
[2015-12-18] MEDS: POLYETHYLENE GLYCOL 17 GM PKG PO/NG SCH ×2 (08:01→21:00)
[2015-12-18] MEDS: METOPROLOL TARTRATE 25 MG TAB PO SCH ×2 (08:01→21:00)
[2015-12-18] MEDS: RANITIDINE HCL 150 MG TAB PO SCH ×2 (08:01→21:00)
[2015-12-18] MEDS: THIAMINE HCL 100 MG TAB PO SCH (08:01)
[2015-12-18] MEDS: LACTULOSE SYRUP 20 GM/30 ML CUP PO SCH ×2 (08:01→13:00)
[2015-12-18] MEDS: SODIUM CHLORIDE 0.9% FLUSH 5 ML FLUSH IVF SCH ×2 (08:02→21:35)
[2015-12-18] MEDS: LEVOFLOXACIN 750 MG PREMIX INJ 150 ML IV SCH (08:42)
[2015-12-18] MEDS: VANCOMYCIN INJ 1,300 MG in SODIUM CHLORID 0.9% 500 ML INJ 500 ML IV SCH (09:44)
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
[2015-12-18] MEDS: SENNOSIDES SYRUP 8.8 MG/5 ML CUP TUBE SCH (12:30)
[2015-12-18] MEDS: fentaNYL DRIP 250 ML IV SCH (13:36)
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
[2015-12-19] VITALS (19 sets, daily range): BP systolic 112–157; BP diastolic 58–86; PULSE 81–103; RESP 17–25; TEMP 98.5–99.9; O2SAT 91–98
[2015-12-19] MEDS: SENNOSIDES SYRUP 8.8 MG/5 ML CUP TUBE SCH (00:30)
[2015-12-19] MEDS: LACTULOSE SYRUP 20 GM/30 ML CUP PO SCH (01:00)
[2015-12-19] MEDS: hydrALAZINE HCL 20 MG/ML VIAL IV PUSH PRN ×2 (02:34→14:47)
[2015-12-19] MEDS: CHLORHEXIDINE GLUCONATE 2 % 1 PACK (2 CLOTHS) TOP SCH (03:18)
[2015-12-19] MEDS: RESP: ALBUTEROL 2.5 MG/IPRATROPIUM 0.5 MG NEB (SCH) NEB ×4 (03:56→21:39)
[2015-12-19 04:20] LABS: ALT (GPT) 15 U/L (12-78); ANION GAP 8 MEQ/L (5-15); AST (GOT) 17 U/L (15-37); BICARBONATE 30.3 MEQ/L (21.0-32.0); BLOOD UREA NITROGEN 14 MG/DL (7-18); CHLORIDE 105 MEQ/L (98-107); GLOMERULAR FILTRATION RATE 127 ML/MIN (>89); MAGNESIUM 2.1 MG/DL (1.5-2.5); POTASSIUM 3.1 MEQ/L (3.5-5.1); SODIUM (NA) 143 MEQ/L (136-145)
[2015-12-19 04:22] LABS: ALKALINE PHOSPHATASE 60 U/L (45-117); TOTAL BILIRUBIN ADULT 0.8 MG/DL (0.2-1.0)
[2015-12-19 04:23] LABS: AUTOMATED NEUTROPHIL # 7.7 TH/MM3 (1.8-7.7); BASOPHIL # 0.1 TH/MM3 (0-0.2); BASOPHIL % 0.7 % (0.0-2.0); EOSINOPHIL # 0.1 TH/MM3 (0-0.4); EOSINOPHIL % 1.2 % (0.0-4.0); HEMATOCRIT 28.1 % (39.0-51.0); HEMO FLAGS DIFF FINAL; LYMPH % 9.6 % (9.0-44.0); LYMPHOCYTE # 0.9 TH/MM3 (1.0-4.8); MEAN CELL VOLUME 98.8 FL (80.0-100.0); MEAN CORPUSCULAR HEMOGLOBIN 32.7 PG (27.0-34.0); MEAN CORPUSCULAR HGB CONC 33.1 % (32.0-36.0); MONO % 7.1 % (0.0-8.0); NEUT % 81.4 % (16.0-70.0); PLATELET COUNT 394 TH/MM3 (150-450); RED BLOOD COUNT 2.84 MIL/MM3 (4.50-5.90); RED CELL DISTRIBUTION WIDTH 13.9 % (11.6-17.2); WHITE BLOOD COUNT 9.4 TH/MM3 (4.0-11.0)
[2015-12-19] MEDS: METOCLOPRAMIDE HCL 10 MG/2 ML VIAL IV PUSH SCH ×3 (05:01→20:57)
[2015-12-19] MEDS: PIPERACIL-TAZO 4.5 GM PREMIX 100 ML IV SCH ×4 (05:01→23:51)
[2015-12-19] MEDS: POTASSIUM CHLOR 20 MEQ PREMIX 100 ML IV PRN ×3 (05:02→09:39)
--- NOTE | 2015-12-19 05:25 | RADRPT ---
EXAM DATE/TIME: 12/19/2015 04:36 [facility] COMPARISON: CHEST SINGLE AP, December 18, 2015, 4:37. INDICATIONS : Evaluate for respiratory disease. MEDICAL HISTORY : None. SURGICAL HISTORY : None. ENCOUNTER: Subsequent ACUITY: 2 weeks PAIN SCORE: Non-responsive. LOCATION: Bilateral chest FINDINGS: Single AP view of the chest. Tracheostomy tube remains in place. Persistent extensive left lung opaci ty and volume loss. Patchy right lower lobe atelectasis versus consolidation is increased. CONCLUSION: 1. Increased right basilar atelectasis versus consolidation. 2. Left lung opacity unchanged. Anam Pavon MD on December 19, 2015 at 5:21 Board Certified Radiologist. This report was verified electronically.
[2015-12-19] MEDS: MIDAZOLAM HCL 2 MG/2 ML VIAL IV PUSH PRN ×3 (05:52→20:58)
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
[2015-12-19] MEDS: CHLORHEXIDINE 0.12% (ORAL KIT) 15 ML CUP MT SCH ×2 (07:42→20:57)
[2015-12-19] MEDS: ARTIFICIAL TEARS OPTH SOLN 15 ML BTL EACH EYE SCH ×3 (08:38→18:08)
[2015-12-19] MEDS: RANITIDINE HCL 150 MG TAB PO SCH (08:39)
[2015-12-19] MEDS: POLYETHYLENE GLYCOL 17 GM PKG PO/NG SCH (08:39)
[2015-12-19] MEDS: METOPROLOL TARTRATE 25 MG TAB PO SCH (08:39)
[2015-12-19] MEDS: THIAMINE HCL 100 MG TAB PO SCH (08:39)
[2015-12-19] MEDS: LEVOFLOXACIN 750 MG PREMIX INJ 150 ML IV SCH (08:39)
[2015-12-19] MEDS: SODIUM CHLORIDE 0.9% FLUSH 5 ML FLUSH IVF SCH ×2 (08:39→20:57)
[2015-12-19] MEDS: THIAMINE HCL 100 MG TAB PO/NG SCH (08:39)
[2015-12-19] MEDS: levETIRAcetam 500MG PREMIX INJ 100 ML IV SCH ×2 (08:39→20:57)
[2015-12-19] MEDS: BACITRACIN TOP OINT 15 GM TUBE TOP SCH ×2 (08:40→20:57)
[2015-12-19] MEDS ORDERED: PHARMACY ORDERED LAB XX ONE (08:45)
[2015-12-19] MEDS ORDERED: POTASSIUM PHOSPHATE INJ 30 MMOL in SODIUM CHLOR 0.9% 250 ML INJ 250 ML IV ONE (10:00)
[2015-12-19] MEDS: PANTOPRAZOLE SODIUM 40 MG VIAL IV PUSH SCH (11:20)
[2015-12-19] MEDS: METOPROLOL TARTRATE 5 MG/5 ML VIAL IV PUSH SCH ×4 (11:20→23:51)
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
[2015-12-19] MEDS: fentaNYL DRIP 250 ML IV SCH (13:36)
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
[2015-12-20] VITALS (19 sets, daily range): BP systolic 126–160; BP diastolic 64–88; PULSE 73–98; RESP 10–22; TEMP 97.8–99.9; O2SAT 88–100
[2015-12-20] MEDS: MIDAZOLAM HCL 2 MG/2 ML VIAL IV PUSH PRN ×3 (00:02→22:29)
[2015-12-20] MEDS: RESP: ALBUTEROL 2.5 MG/IPRATROPIUM 0.5 MG NEB (SCH) NEB ×4 (03:34→20:27)
[2015-12-20] MEDS: CHLORHEXIDINE GLUCONATE 2 % 1 PACK (2 CLOTHS) TOP SCH (03:41)
[2015-12-20] MEDS: METOPROLOL TARTRATE 5 MG/5 ML VIAL IV PUSH SCH ×6 (03:41→23:51)
[2015-12-20] MEDS: METOCLOPRAMIDE HCL 10 MG/2 ML VIAL IV PUSH SCH ×3 (04:57→20:33)
[2015-12-20] MEDS: PIPERACIL-TAZO 4.5 GM PREMIX 100 ML IV SCH ×2 (04:57→10:02)
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
[2015-12-20] MEDS: CHLORHEXIDINE 0.12% (ORAL KIT) 15 ML CUP MT SCH ×2 (08:00→20:00)
[2015-12-20] MEDS: ARTIFICIAL TEARS OPTH SOLN 15 ML BTL EACH EYE SCH ×3 (08:21→18:00)
[2015-12-20] MEDS: BACITRACIN TOP OINT 15 GM TUBE TOP SCH (08:21)
[2015-12-20] MEDS: SODIUM CHLORIDE 0.9% FLUSH 5 ML FLUSH IVF SCH ×2 (08:21→20:34)
[2015-12-20] MEDS: LEVOFLOXACIN 750 MG PREMIX INJ 150 ML IV SCH (08:21)
[2015-12-20] MEDS: levETIRAcetam 500MG PREMIX INJ 100 ML IV SCH ×2 (08:21→20:34)
[2015-12-20] MEDS ORDERED: ACETAMINOPHEN/HYDROcodone 325 MG/5 MG TAB PO PRN ×2 (09:00)
[2015-12-20] MEDS ORDERED: MORPHINE SULFATE 4 MG/ML INJ IV PUSH PRN (09:00)
[2015-12-20] MEDS: ENOXAPARIN SODIUM 30 MG/0.3 ML SYRINGE SQ SCH ×2 (10:03→20:33)
[2015-12-20] MEDS: fentaNYL 50 MCG/HR PATCH TD SCH (10:03)
[2015-12-20] MEDS: hydrALAZINE HCL 20 MG/ML VIAL IV PUSH PRN (10:49)
[2015-12-20] MEDS: PANTOPRAZOLE SODIUM 40 MG VIAL IV PUSH SCH (12:11)
[2015-12-20] MEDS: MORPHINE SULFATE 4 MG/ML INJ IV PUSH PRN (12:33)
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
[2015-12-21] VITALS (18 sets, daily range): BP systolic 138–191; BP diastolic 79–107; PULSE 78–118; RESP 14–30; TEMP 98.9–100.6; O2SAT 91–97
[2015-12-21] MEDS: RESP: ALBUTEROL 2.5 MG/IPRATROPIUM 0.5 MG NEB (SCH) NEB ×4 (03:11→20:44)
[2015-12-21] MEDS: CHLORHEXIDINE GLUCONATE 2 % 1 PACK (2 CLOTHS) TOP SCH (04:00)
[2015-12-21] MEDS: METOPROLOL TARTRATE 5 MG/5 ML VIAL IV PUSH SCH ×5 (04:20→20:08)
[2015-12-21 05:12] LABS: HEMATOCRIT 26.8 % (39.0-51.0); MEAN CELL VOLUME 99.5 FL (80.0-100.0); MEAN CORPUSCULAR HEMOGLOBIN 33.8 PG (27.0-34.0); PLATELET COUNT 369 TH/MM3 (150-450); RED BLOOD COUNT 2.69 MIL/MM3 (4.50-5.90); RED CELL DISTRIBUTION WIDTH 14.3 % (11.6-17.2); REVIEW FLAG FINAL; WHITE BLOOD COUNT 8.1 TH/MM3 (4.0-11.0)
[2015-12-21] MEDS: METOCLOPRAMIDE HCL 10 MG/2 ML VIAL IV PUSH SCH ×3 (05:15→21:41)
[2015-12-21 05:21] LABS: BICARBONATE 27.8 MEQ/L (21.0-32.0); MAGNESIUM 1.9 MG/DL (1.5-2.5); POTASSIUM 3.5 MEQ/L (3.5-5.1)
--- NOTE | 2015-12-21 05:42 | RADRPT ---
EXAM DATE/TIME: 12/21/2015 04:40 [facility] COMPARISON: CHEST SINGLE AP, December 19, 2015, 4:36. INDICATIONS : Shortness of breath. MEDICAL HISTORY : Cardiovascular disease. Hypertension. SURGICAL HISTORY : None. ENCOUNTER: Subsequent ACUITY: 2 weeks PAIN SCORE: Non-responsive. LOCATION: Bilateral chest FINDINGS: Single AP view of the chest. Tracheostomy tube remains in place. Increase in diffuse right lung opaci ty with perihilar predominance. No significant change in left lung opacity with confluence in the lef t upper lung zone. Cardiomediastinal silhouette unchanged. CONCLUSION: Persistent bilateral pulmonary opacity with increase on the right. No change on the left. Anam Pavon MD on December 21, 2015 at 5:38 Board Certified Radiologist. This report was verified electronically.
[2015-12-21] MEDS: BACITRACIN TOP OINT 15 GM TUBE TOP SCH ×2 (07:53→20:10)
[2015-12-21] MEDS: CHLORHEXIDINE 0.12% (ORAL KIT) 15 ML CUP MT SCH ×2 (07:53→20:10)
[2015-12-21] MEDS: SODIUM CHLORIDE 0.9% FLUSH 5 ML FLUSH IVF SCH ×2 (07:54→20:09)
[2015-12-21] MEDS: ARTIFICIAL TEARS OPTH SOLN 15 ML BTL EACH EYE SCH ×3 (07:56→16:56)
[2015-12-21] MEDS: levETIRAcetam 500MG PREMIX INJ 100 ML IV SCH ×2 (08:09→20:09)
[2015-12-21] MEDS: ENOXAPARIN SODIUM 30 MG/0.3 ML SYRINGE SQ SCH ×2 (08:09→21:41)
[2015-12-21] MEDS: hydrALAZINE HCL 20 MG/ML VIAL IV PUSH PRN ×2 (09:41→16:52)
[2015-12-21] MEDS: MORPHINE SULFATE 4 MG/ML INJ IV PUSH PRN (09:49)
[2015-12-21] MEDS: LABETALOL HCL 100 MG/20 ML VIAL IV PUSH PRN ×2 (10:41→19:01)
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
[2015-12-21] MEDS: PANTOPRAZOLE SODIUM 40 MG VIAL IV PUSH SCH (12:37)
[2015-12-21] MEDS ORDERED: METOPROLOL TARTRATE 5 MG/5 ML VIAL IV PUSH ONE (12:45)
[2015-12-21] MEDS ORDERED: POTASSIUM PHOSPHATE MONOBASIC 500 MG TAB PO/TUBE PRN (13:00)
[2015-12-21] MEDS ORDERED: MAGNESIUM OXIDE 400 MG TAB PO PRN (13:00)
[2015-12-21] MEDS ORDERED: POTASSIUM CHLOR 40 MEQ PREMIX 100 ML IV PRN ×2 (13:00)
[2015-12-21] MEDS ORDERED: POTASSIUM PHOSPHATE INJ 30 MMOL in SODIUM CHLOR 0.9% 250 ML INJ 250 ML IV PRN (13:00)
[2015-12-21] MEDS ORDERED: POTASSIUM CHLOR 20 MEQ PREMIX 100 ML IV PRN ×2 (13:00)
[2015-12-21] MEDS ORDERED: MAGNESIUM SULFATE INJ 2 GM in SODIUM CHLORIDE 0.9% INJ 96 ML IV PRN (13:00)
[2015-12-21] MEDS ORDERED: POTASSIUM PHOSPHATE MONOBASIC 500 MG TAB PO PRN (13:00)
[2015-12-21] MEDS ORDERED: MAGNESIUM SULFATE INJ 4 GM in SODIUM CHLORIDE 0.9% INJ 92 ML IV PRN (13:00)
[2015-12-21] MEDS ORDERED: POTASSIUM CL 40 MEQ/30 ML LIQ UDC PO/TUBE PRN ×2 (13:00)
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
[2015-12-21] MEDS: SODIUM PHOSPHATE INJ 30 MMOL in SODIUM CHLOR 0.9% 250 ML INJ 240 ML IV PRN (15:04)
[2015-12-21] MEDS: OLANZapine ODT 5 MG TAB PO PRN (17:15)
[2015-12-21] MEDS: oxyCODONE HCL ORAL CONC 20 MG/ML SYRINGE PO PRN ×2 (17:15→22:05)
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
[2015-12-22] VITALS (22 sets, daily range): BP systolic 110–159; BP diastolic 58–92; PULSE 84–114; RESP 20–28; TEMP 98.2–100.2; O2SAT 90–100
[2015-12-22] MEDS: METOPROLOL TARTRATE 5 MG/5 ML VIAL IV PUSH SCH ×6 (00:31→20:00)
[2015-12-22] MEDS: oxyCODONE HCL ORAL CONC 20 MG/ML SYRINGE PO PRN ×2 (03:30→18:33)
[2015-12-22] MEDS: RESP: ALBUTEROL 2.5 MG/IPRATROPIUM 0.5 MG NEB (SCH) NEB ×4 (03:47→19:53)
[2015-12-22] MEDS: CHLORHEXIDINE GLUCONATE 2 % 1 PACK (2 CLOTHS) TOP SCH (04:00)
[2015-12-22] MEDS: MORPHINE SULFATE 4 MG/ML INJ IV PUSH PRN (06:56)
[2015-12-22] MEDS: METOCLOPRAMIDE HCL 10 MG/2 ML VIAL IV PUSH SCH ×3 (06:56→22:00)
[2015-12-22] MEDS: BACITRACIN TOP OINT 15 GM TUBE TOP SCH ×2 (09:00→21:00)
[2015-12-22] MEDS: ARTIFICIAL TEARS OPTH SOLN 15 ML BTL EACH EYE SCH ×3 (09:04→17:08)
[2015-12-22] MEDS: CHLORHEXIDINE 0.12% (ORAL KIT) 15 ML CUP MT SCH ×2 (09:05→20:00)
[2015-12-22] MEDS: levETIRAcetam 500MG PREMIX INJ 100 ML IV SCH (09:06)
[2015-12-22] MEDS: ENOXAPARIN SODIUM 30 MG/0.3 ML SYRINGE SQ SCH ×2 (09:06→22:00)
[2015-12-22] MEDS: SODIUM CHLORIDE 0.9% FLUSH 5 ML FLUSH IVF SCH ×2 (09:06→21:00)
[2015-12-22 10:14] LABS: POTASSIUM 4.3 MEQ/L (3.5-5.1)
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
[2015-12-22] MEDS: SODIUM PHOSPHATE INJ 30 MMOL in SODIUM CHLOR 0.9% 250 ML INJ 240 ML IV PRN (11:18)
[2015-12-22] MEDS: PANTOPRAZOLE SODIUM 40 MG VIAL IV PUSH SCH (11:35)
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
[2015-12-22] MEDS: levETIRAcetam 500 MG/5 ML UDC TUBE SCH (21:00)
[2015-12-23] VITALS (18 sets, daily range): BP systolic 99–189; BP diastolic 55–117; PULSE 85–112; RESP 19–29; TEMP 98.7–103.1; O2SAT 92–98
[2015-12-23] MEDS: oxyCODONE HCL ORAL CONC 20 MG/ML SYRINGE PO PRN ×3 (02:15→20:09)
[2015-12-23] MEDS: RESP: ALBUTEROL 2.5 MG/IPRATROPIUM 0.5 MG NEB (SCH) NEB ×4 (03:39→20:05)
[2015-12-23 03:52] LABS: HEMATOCRIT 27.6 % (39.0-51.0); MEAN CELL VOLUME 99.7 FL (80.0-100.0); MEAN CORPUSCULAR HEMOGLOBIN 32.3 PG (27.0-34.0); MEAN CORPUSCULAR HGB CONC 32.4 % (32.0-36.0); PLATELET COUNT 399 TH/MM3 (150-450); RED BLOOD COUNT 2.76 MIL/MM3 (4.50-5.90); RED CELL DISTRIBUTION WIDTH 14.7 % (11.6-17.2); REVIEW FLAG FINAL; WHITE BLOOD COUNT 7.7 TH/MM3 (4.0-11.0)
[2015-12-23] MEDS: METOPROLOL TARTRATE 5 MG/5 ML VIAL IV PUSH SCH ×6 (04:00→20:00)
[2015-12-23] MEDS: CHLORHEXIDINE GLUCONATE 2 % 1 PACK (2 CLOTHS) TOP SCH (04:00)
[2015-12-23 04:05] LABS: BICARBONATE 25.6 MEQ/L (21.0-32.0); POTASSIUM 4.1 MEQ/L (3.5-5.1)
[2015-12-23] MEDS: METOCLOPRAMIDE HCL 10 MG/2 ML VIAL IV PUSH SCH ×3 (06:00→20:10)
[2015-12-23] MEDS: CHLORHEXIDINE 0.12% (ORAL KIT) 15 ML CUP MT SCH ×2 (08:00→20:10)
[2015-12-23] MEDS: ENOXAPARIN SODIUM 30 MG/0.3 ML SYRINGE SQ SCH ×2 (08:20→20:09)
[2015-12-23] MEDS: levETIRAcetam 500 MG/5 ML UDC TUBE SCH ×2 (08:20→20:09)
[2015-12-23] MEDS: fentaNYL 50 MCG/HR PATCH TD SCH (08:25)
[2015-12-23] MEDS: ARTIFICIAL TEARS OPTH SOLN 15 ML BTL EACH EYE SCH ×3 (08:26→17:14)
[2015-12-23] MEDS: SODIUM CHLORIDE 0.9% FLUSH 5 ML FLUSH IVF SCH ×2 (08:26→20:10)
[2015-12-23] MEDS: BACITRACIN TOP OINT 15 GM TUBE TOP SCH ×2 (08:26→20:10)
[2015-12-23] MEDS: REMOVE OLD PATCH TD SCH (08:26)
[2015-12-23] MEDS: hydrALAZINE HCL 20 MG/ML VIAL IV PUSH PRN (09:25)
[2015-12-23] MEDS: MORPHINE SULFATE 4 MG/ML INJ IV PUSH PRN (10:32)
[2015-12-23 10:52] LABS: BLOOD GAS BASE EXCESS 1.9 mmol/L (-2-2); BLOOD GAS CARBOXYHEMOGLOBIN 1.3 % (0-4); BLOOD GAS HCO3 25 mmol/L (22-26); BLOOD GAS METHEMOGLOBIN 0.7 % (0-2); BLOOD GAS O2 HGB SATURATION 91 % (90-100); BLOOD GAS OXYGEN CONTENT 13.1 Vol % (12.0-20.0); BLOOD GAS PCO2 33 mmHg (38-42); BLOOD GAS PO2 65 mmHg (61-120); BLOOD GAS TOTAL HGB 10.2 G/DL (12.0-16.0); CRITICAL VALUE NO; OXYGEN DEVICE VENTILATOR; TEMP CORR TO 98.6
[2015-12-23 10:53] LABS: DRAW SITE LT RADIAL; FIO2 100 %; NUMBER OF ARTERIAL PUNCTURES 1; STAT YES; ULNAR PULSE PRESENT; VENT SETTINGS AC/14/500/7PEEP
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
[2015-12-23] MEDS ORDERED: LABETALOL HCL 100 MG/20 ML VIAL IVP ONE (12:00)
--- NOTE | 2015-12-23 12:28 | RADRPT ---
EXAM DATE/TIME: 12/23/2015 10:38 [facility] COMPARISON: CT THORAX W CONTRAST, December 15, 2015, 14:36. CHEST SINGLE AP, December 21, 2015, 4:40. INDICATIONS : Shortness of breath. MEDICAL HISTORY : Cardiovascular disease. Hypertension. SURGICAL HISTORY : None. ENCOUNTER: Subsequent ACUITY: 2 weeks PAIN SCORE: Non-responsive. LOCATION: Bilateral chest FINDINGS: The heart is at the upper limits of normal in size. There is a tracheostomy tube in good position. Th ere are diffuse bilateral parenchymal infiltrates and areas of consolidation. Note is made of a stent within the left mainstem bronchus. A left hilar mass is also noted. The examination is unchanged whe n compared to previous. CONCLUSION: 1. Extensive pleural and parenchymal changes with a left hilar mass and previous stenting of the left mainstem bronchus. The overall appearance of the parenchyma is relatively unchanged compared to prio r examination Ruiz Lloyd MD on December 23, 2015 at 12:23 Board Certified Radiologist. This report was verified electronically.
[2015-12-23] MEDS: PANTOPRAZOLE SODIUM 40 MG VIAL IV PUSH SCH (12:51)
[2015-12-23] MEDS: ACETAMINOPHEN 650 MG/20.3 ML UDC J-TUBE PRN (12:51)
[2015-12-23] MEDS ORDERED: ACETAMINOPHEN 650 MG/20.3 ML UDC J-TUBE ONE (13:45)
[2015-12-23] MEDS ORDERED: VANCOMYCIN INJ 1,250 MG in SODIUM CHLOR 0.9% 250 ML INJ 250 ML IV ONE (16:00)
[2015-12-23] MEDS: PIPERACIL-TAZO 3.375 GM PREMIX 50 ML IV SCH ×2 (16:40→22:30)
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
[2015-12-24] VITALS (18 sets, daily range): BP systolic 102–156; BP diastolic 57–86; PULSE 84–112; RESP 17–21; TEMP 98–100; O2SAT 95–100
[2015-12-24] MEDS: METOPROLOL TARTRATE 5 MG/5 ML VIAL IV PUSH SCH ×3 (00:06→09:28)
[2015-12-24] MEDS: RESP: ALBUTEROL 2.5 MG/IPRATROPIUM 0.5 MG NEB (SCH) NEB ×4 (03:50→21:01)
[2015-12-24] MEDS: oxyCODONE HCL ORAL CONC 20 MG/ML SYRINGE PO PRN ×2 (03:57→09:36)
[2015-12-24] MEDS: CHLORHEXIDINE GLUCONATE 2 % 1 PACK (2 CLOTHS) TOP SCH (04:00)
[2015-12-24] MEDS: METOCLOPRAMIDE HCL 10 MG/2 ML VIAL IV PUSH SCH (04:23)
[2015-12-24 05:27] LABS: HEMATOCRIT 27.9 % (39.0-51.0); MEAN CELL VOLUME 99.7 FL (80.0-100.0); MEAN CORPUSCULAR HEMOGLOBIN 32.4 PG (27.0-34.0); MEAN CORPUSCULAR HGB CONC 32.4 % (32.0-36.0); PLATELET COUNT 376 TH/MM3 (150-450); RED BLOOD COUNT 2.79 MIL/MM3 (4.50-5.90); RED CELL DISTRIBUTION WIDTH 14.7 % (11.6-17.2); REVIEW FLAG FINAL; WHITE BLOOD COUNT 11.2 TH/MM3 (4.0-11.0)
[2015-12-24 05:50] LABS: BICARBONATE 27.5 MEQ/L (21.0-32.0); MAGNESIUM 2.2 MG/DL (1.5-2.5); POTASSIUM 4.4 MEQ/L (3.5-5.1)
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
[2015-12-24] MEDS: ARTIFICIAL TEARS OPTH SOLN 15 ML BTL EACH EYE SCH ×3 (09:00→16:34)
[2015-12-24] MEDS: BACITRACIN TOP OINT 15 GM TUBE TOP SCH ×2 (09:00→20:08)
[2015-12-24] MEDS: levETIRAcetam 500 MG/5 ML UDC TUBE SCH ×2 (09:24→20:08)
[2015-12-24] MEDS: PIPERACIL-TAZO 3.375 GM PREMIX 50 ML IV SCH ×2 (09:24→16:28)
[2015-12-24] MEDS: ENOXAPARIN SODIUM 30 MG/0.3 ML SYRINGE SQ SCH ×2 (09:24→22:33)
[2015-12-24] MEDS: PANTOPRAZOLE SODIUM 40 MG VIAL IV PUSH SCH (09:26)
[2015-12-24] MEDS: SODIUM CHLORIDE 0.9% FLUSH 5 ML FLUSH IVF SCH ×2 (09:28→20:09)
[2015-12-24] MEDS: CHLORHEXIDINE 0.12% (ORAL KIT) 15 ML CUP MT SCH ×2 (09:29→20:08)
[2015-12-24] MEDS: OLANZapine ODT 5 MG TAB PO PRN (09:33)
[2015-12-24] MEDS ORDERED: PANTOPRAZOLE SODIUM 40 MG VIAL IV PUSH SCH (12:00)
[2015-12-24] MEDS: METOPROLOL TARTRATE 25 MG TAB TUBE SCH ×2 (14:41→22:33)
[2015-12-24] MEDS: MORPHINE SULFATE 4 MG/ML INJ IV PUSH PRN (14:44)
[2015-12-24] MEDS: LABETALOL HCL 100 MG/20 ML VIAL IV PUSH PRN (14:47)
[2015-12-24] MEDS: METOCLOPRAMIDE HCL SYRUP 10 MG/10 ML UDC G-TUBE SCH (20:08)
[2015-12-25] VITALS (18 sets, daily range): BP systolic 98–147; BP diastolic 57–78; PULSE 79–99; RESP 16–20; TEMP 98.3–99.1; O2SAT 94–99
[2015-12-25] MEDS: PIPERACIL-TAZO 3.375 GM PREMIX 50 ML IV SCH ×3 (00:45→16:45)
[2015-12-25] MEDS: RESP: ALBUTEROL 2.5 MG/IPRATROPIUM 0.5 MG NEB (SCH) NEB ×4 (03:24→20:51)
[2015-12-25] MEDS: METOPROLOL TARTRATE 25 MG TAB TUBE SCH ×3 (05:17→22:41)
[2015-12-25] MEDS: CHLORHEXIDINE GLUCONATE 2 % 1 PACK (2 CLOTHS) TOP SCH (05:17)
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
[2015-12-25] MEDS: ARTIFICIAL TEARS OPTH SOLN 15 ML BTL EACH EYE SCH ×3 (09:00→18:00)
[2015-12-25] MEDS: BACITRACIN TOP OINT 15 GM TUBE TOP SCH ×2 (09:00→20:22)
[2015-12-25] MEDS: CHLORHEXIDINE 0.12% (ORAL KIT) 15 ML CUP MT SCH ×2 (09:04→20:21)
[2015-12-25] MEDS: RANITIDINE HCL SYRUP 150 MG/10 ML UDC TUBE SCH ×2 (09:05→20:24)
[2015-12-25] MEDS: levETIRAcetam 500 MG/5 ML UDC TUBE SCH ×2 (09:05→20:24)
[2015-12-25] MEDS: METOCLOPRAMIDE HCL SYRUP 10 MG/10 ML UDC G-TUBE SCH ×2 (09:05→20:24)
[2015-12-25] MEDS: ENOXAPARIN SODIUM 30 MG/0.3 ML SYRINGE SQ SCH ×2 (09:06→22:41)
[2015-12-25] MEDS: OLANZapine ODT 5 MG TAB PO PRN (09:06)
[2015-12-25] MEDS: SODIUM CHLORIDE 0.9% FLUSH 5 ML FLUSH IVF SCH ×2 (09:08→20:21)
[2015-12-25] MEDS ORDERED: SENNOSIDES SYRUP 8.8 MG/5 ML CUP PO ONE (12:00)
[2015-12-25] MEDS: ALPRAZolam 0.25 MG TAB PO SCH ×2 (15:00→22:00)
[2015-12-25] MEDS: SENNOSIDES SYRUP 8.8 MG/5 ML CUP PO SCH (20:24)
[2015-12-25] MEDS: methylPREDNISolone SOD SUCC 40 MG/1 ML VIAL IV PUSH SCH (22:41)
[2015-12-26] VITALS (22 sets, daily range): BP systolic 101–158; BP diastolic 56–91; PULSE 60–111; RESP 16–26; TEMP 97.4–99.2; O2SAT 86–97
[2015-12-26] MEDS: PIPERACIL-TAZO 3.375 GM PREMIX 50 ML IV SCH ×3 (00:04→16:37)
[2015-12-26] MEDS: RESP: ALBUTEROL 2.5 MG/IPRATROPIUM 0.5 MG NEB (SCH) NEB ×4 (03:19→19:37)
[2015-12-26 03:57] LABS: HEMATOCRIT 26.6 % (39.0-51.0); MEAN CELL VOLUME 99.3 FL (80.0-100.0); MEAN CORPUSCULAR HEMOGLOBIN 31.9 PG (27.0-34.0); MEAN CORPUSCULAR HGB CONC 32.1 % (32.0-36.0); PLATELET COUNT 365 TH/MM3 (150-450); RED BLOOD COUNT 2.68 MIL/MM3 (4.50-5.90); RED CELL DISTRIBUTION WIDTH 14.6 % (11.6-17.2); REVIEW FLAG FINAL; WHITE BLOOD COUNT 7.1 TH/MM3 (4.0-11.0)
[2015-12-26 04:12] LABS: ALT (GPT) 16 U/L (12-78); ANION GAP 4 MEQ/L (5-15); AST (GOT) 13 U/L (15-37); BLOOD UREA NITROGEN 17 MG/DL (7-18); CHLORIDE 105 MEQ/L (98-107); GLOMERULAR FILTRATION RATE 116 ML/MIN (>89); POTASSIUM 4.9 MEQ/L (3.5-5.1); SODIUM (NA) 138 MEQ/L (136-145)
[2015-12-26 04:15] LABS: ALKALINE PHOSPHATASE 65 U/L (45-117); TOTAL BILIRUBIN ADULT 0.5 MG/DL (0.2-1.0)
[2015-12-26] MEDS: CHLORHEXIDINE GLUCONATE 2 % 1 PACK (2 CLOTHS) TOP SCH (04:26)
[2015-12-26] MEDS: ALPRAZolam 0.25 MG TAB PO SCH ×3 (05:53→21:25)
[2015-12-26] MEDS: METOPROLOL TARTRATE 25 MG TAB TUBE SCH ×3 (05:53→21:33)
[2015-12-26] MEDS: methylPREDNISolone SOD SUCC 40 MG/1 ML VIAL IV PUSH SCH ×3 (05:53→21:25)
--- NOTE | 2015-12-26 06:39 | RADRPT ---
EXAM DATE/TIME: 12/26/2015 05:22 [facility] COMPARISON: CHEST SINGLE AP, December 23, 2015, 10:38. INDICATIONS : Shortness of breath. MEDICAL HISTORY : Hypertension. Cardiovascular disease. SURGICAL HISTORY : None. ENCOUNTER: Subsequent ACUITY: 3 weeks PAIN SCORE: Non-responsive. LOCATION: Bilateral chest FINDINGS: A single view of the chest demonstrates improvement in right-sided airspace disease since December 22. Th ere is development of diffuse consolidation and atelectasis of the left lung with mediastinal shift f rom right to left. Small effusions. CONCLUSION: 1. One development of complete atelectasis and consolidation of the left lung since December 22. Improved airspace disease on the right since prior exam. Tracheostomy unchanged. Cam Adams MD on December 26, 2015 at 6:37 Board Certified Radiologist. This report was verified electronically.
[2015-12-26] MEDS: CHLORHEXIDINE 0.12% (ORAL KIT) 15 ML CUP MT SCH ×2 (08:48→19:20)
[2015-12-26] MEDS: REMOVE OLD PATCH TD SCH (09:00)
[2015-12-26] MEDS: hydrALAZINE HCL 20 MG/ML VIAL IV PUSH PRN (09:22)
[2015-12-26] MEDS: ENOXAPARIN SODIUM 30 MG/0.3 ML SYRINGE SQ SCH ×2 (09:23→21:26)
[2015-12-26] MEDS: SENNOSIDES SYRUP 8.8 MG/5 ML CUP PO SCH ×2 (09:23→21:25)
[2015-12-26] MEDS: levETIRAcetam 500 MG/5 ML UDC TUBE SCH ×2 (09:23→21:25)
[2015-12-26] MEDS: METOCLOPRAMIDE HCL SYRUP 10 MG/10 ML UDC G-TUBE SCH ×2 (09:23→21:25)
[2015-12-26] MEDS: RANITIDINE HCL SYRUP 150 MG/10 ML UDC TUBE SCH ×2 (09:23→21:00)
[2015-12-26] MEDS: BACITRACIN TOP OINT 15 GM TUBE TOP SCH ×2 (09:24→21:00)
[2015-12-26] MEDS: ARTIFICIAL TEARS OPTH SOLN 15 ML BTL EACH EYE SCH ×3 (09:24→18:11)
[2015-12-26] MEDS: fentaNYL 50 MCG/HR PATCH TD SCH (09:24)
[2015-12-26] MEDS: SODIUM CHLORIDE 0.9% FLUSH 5 ML FLUSH IVF SCH ×2 (09:25→21:30)
[2015-12-26] MEDS ORDERED: fentaNYL CITRATE 250 MCG/5 ML AMP IV PUSH ONE (10:30)
[2015-12-26] MEDS ORDERED: MIDAZOLAM HCL 5 MG/ML VIAL (1 ML) IV ONE (10:30)
[2015-12-26] MEDS ORDERED: ROCURONIUM INJ 50 MG/5 ML VIAL IV ONE (10:30)
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
--- NOTE | 2015-12-26 12:38 | PD.PROCEDR ---
Procedure Note Procedure Procedure: Bronchoscopy for LLL atelectasis Indication: Respiratory failure/hypoxia/LLL atelectasis Description: Informed consent was obtained. Pt premedicated with Fentanyl and Versed and neuromuscular paralysis with the rocuronium 50 mg IV. Bronchoscope introduced into the tracheostomy tube. Bronchial stent was visualized in the left main bronchus, surrounding chronic inflammatory changes. There was a large amount of mucous plugs, which were suctioned out. Mucous was very thick which took multiple lavages to clear. There is a large amount of mucous plugging in the left upper and lower lobe bronchi which was cleared with multiple saline lavages Evidence of chronic inflammation in the left bronchial tree with narrowing or left upper and lower lobe bronchi. BAL specimen collected from LLL. Patient tolerated procedure well, blood loss was less than 1 mL. Carlie Henriquez MD Dec 26, 2015 12:38
--- NOTE | 2015-12-26 16:55 | RADRPT ---
EXAM DATE/TIME: 12/26/2015 13:23 [facility] COMPARISON: CT THORAX W CONTRAST, December 15, 2015, 14:36. CHEST SINGLE AP, December 26, 2015, 5:22. INDICATIONS : Status post bronchoscopy. MEDICAL HISTORY : None. SURGICAL HISTORY : Bronchoscopy. ENCOUNTER: Subsequent ACUITY: 3 weeks PAIN SCORE: Non-responsive. LOCATION: Chest FINDINGS: A tracheostomy tube is noted and has its tip approximately 3 cm above the sherrie. A stent is noted w ithin the left main stem bronchus. There is slight improved aeration of the left hemithorax compared to the previous examination. Bilateral scattered infiltrates are again noted and worse on the left than the right. CONCLUSION: 1. Slight interval improved aeration of the left hemithorax compared to the previous examination. 2. Persistent scattered infiltrates (left worse than right). 3. Tracheostomy tube in good position well above the sherrie. Juan Hernandez MD on December 26, 2015 at 16:45 Board Certified Radiologist. This report was verified electronically.
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
[2015-12-26] MEDS: RESP: ACETYLCYSTEINE 20% 30 ML NEB NEB SCH (19:38)
[2015-12-27] VITALS (24 sets, daily range): BP systolic 98–181; BP diastolic 54–104; PULSE 76–102; RESP 19–27; TEMP 98.5–99.3; O2SAT 91–100
[2015-12-27] MEDS: PIPERACIL-TAZO 3.375 GM PREMIX 50 ML IV SCH ×4 (00:15→22:32)
[2015-12-27] MEDS: MORPHINE SULFATE 4 MG/ML INJ IV PUSH PRN ×3 (00:17→20:11)
--- NOTE | 2015-12-27 03:35 | RADRPT ---
EXAM DATE/TIME: 12/27/2015 02:40 [facility] COMPARISON: CHEST SINGLE AP, December 26, 2015, 13:23. INDICATIONS : Shortness of breath. MEDICAL HISTORY : None. SURGICAL HISTORY : Bronchoscopy. ENCOUNTER: Subsequent ACUITY: 3 weeks PAIN SCORE: Non-responsive. LOCATION: Bilateral chest FINDINGS: Tracheostomy unchanged. Dense airspace disease in the left lung and patchy right-sided airspace disea se remain. Cardiomegaly. No pneumothorax. CONCLUSION: 1. Bilateral airspace disease, left greater than right. No significant change from December 25. Cam Adams MD on December 27, 2015 at 3:30 Board Certified Radiologist. This report was verified electronically.
[2015-12-27] MEDS: RESP: ALBUTEROL 2.5 MG/IPRATROPIUM 0.5 MG NEB (SCH) NEB ×4 (03:48→20:56)
[2015-12-27] MEDS: CHLORHEXIDINE GLUCONATE 2 % 1 PACK (2 CLOTHS) TOP SCH (04:00)
[2015-12-27 04:46] LABS: AUTOMATED NEUTROPHIL # 10.1 TH/MM3 (1.8-7.7); BASOPHIL % 0.1 % (0.0-2.0); HEMATOCRIT 27.6 % (39.0-51.0); HEMO FLAGS DIFF FINAL; LYMPH % 5.2 % (9.0-44.0); LYMPHOCYTE # 0.6 TH/MM3 (1.0-4.8); MEAN CORPUSCULAR HEMOGLOBIN 31.9 PG (27.0-34.0); MEAN CORPUSCULAR HGB CONC 32.3 % (32.0-36.0); MONO % 2.7 % (0.0-8.0); PLATELET COUNT 402 TH/MM3 (150-450); RED BLOOD COUNT 2.79 MIL/MM3 (4.50-5.90); RED CELL DISTRIBUTION WIDTH 14.4 % (11.6-17.2)
[2015-12-27 05:03] LABS: ALKALINE PHOSPHATASE 72 U/L (45-117); ALT (GPT) 27 U/L (12-78); ANION GAP 6 MEQ/L (5-15); AST (GOT) 25 U/L (15-37); BICARBONATE 30.5 MEQ/L (21.0-32.0); BLOOD UREA NITROGEN 22 MG/DL (7-18); CHLORIDE 104 MEQ/L (98-107); GLOMERULAR FILTRATION RATE 110 ML/MIN (>89); POTASSIUM 4.7 MEQ/L (3.5-5.1); SODIUM (NA) 140 MEQ/L (136-145); TOTAL BILIRUBIN ADULT 0.4 MG/DL (0.2-1.0)
[2015-12-27] MEDS: METOPROLOL TARTRATE 25 MG TAB TUBE SCH ×3 (05:50→20:11)
[2015-12-27] MEDS: ALPRAZolam 0.25 MG TAB PO SCH ×3 (05:50→20:12)
[2015-12-27] MEDS: methylPREDNISolone SOD SUCC 40 MG/1 ML VIAL IV PUSH SCH (05:50)
[2015-12-27] MEDS: LABETALOL HCL 100 MG/20 ML VIAL IV PUSH PRN ×2 (06:40→10:22)
[2015-12-27] MEDS: RANITIDINE HCL SYRUP 150 MG/10 ML UDC TUBE SCH ×2 (08:02→20:11)
[2015-12-27] MEDS: METOCLOPRAMIDE HCL SYRUP 10 MG/10 ML UDC G-TUBE SCH ×2 (08:02→20:11)
[2015-12-27] MEDS: levETIRAcetam 500 MG/5 ML UDC TUBE SCH ×2 (08:02→20:11)
[2015-12-27] MEDS: ARTIFICIAL TEARS OPTH SOLN 15 ML BTL EACH EYE SCH ×3 (08:02→18:40)
[2015-12-27] MEDS: SODIUM CHLORIDE 0.9% FLUSH 5 ML FLUSH IVF SCH ×2 (08:02→20:12)
[2015-12-27] MEDS: SENNOSIDES SYRUP 8.8 MG/5 ML CUP PO SCH ×2 (08:02→20:11)
[2015-12-27] MEDS: BACITRACIN TOP OINT 15 GM TUBE TOP SCH ×2 (08:03→20:12)
[2015-12-27] MEDS: CHLORHEXIDINE 0.12% (ORAL KIT) 15 ML CUP MT SCH ×2 (08:03→20:12)
[2015-12-27] MEDS: RESP: ACETYLCYSTEINE 20% 30 ML NEB NEB SCH ×3 (08:05→21:00)
[2015-12-27] MEDS: ENOXAPARIN SODIUM 30 MG/0.3 ML SYRINGE SQ SCH ×2 (10:22→20:11)
[2015-12-27] MEDS: SODIUM CHLORIDE 0.9% FLUSH 5 ML FLUSH IVF PRN (10:22)
[2015-12-27] MEDS: ONDANSETRON HCL 4 MG/2 ML VIAL IV PRN ×2 (12:30→18:40)
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
--- NOTE | 2015-12-27 16:24 | HHI.HCPN ---
Met with Mr. Pavon currently sitting up in bedside, on trach with good amount of secretions, able to articulate feeling short of breath at times. Respiratory therapist in to give breathing treatment. Mr. Pavon is alert, still difficult to understand although he tries to mouth words-almost presents hyperverbal at times. He is utilizing pen and paper to converse with staff although this is also difficult to follow as he having difficulty articulating thoughts. When asked if he feels his thoughts are cloudy and if he has trouble finding words he nods head yes. Appears somewhat appropriate throughout conversation. Denies ever completing advanced directives. When asked who he would want to speak for him if he couldn' t it, he provides the names: Robinson Kulkarni (step-son) and Brenden Kaufman ( friend of 4+ years). Asked if his would have contact information and he mouths many times he does not want her involved/contacted. Unable to provide contact information. Requested CM run accurints to try and find contact information. Palliative care will continue to follow throughout hospitalization. SW will follow as needed for emotional and social support. Mindi Anderson Dec 27, 2015 16:24
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
[2015-12-27] MEDS: oxyCODONE HCL ORAL CONC 20 MG/ML SYRINGE PO PRN (20:11)
[2015-12-27] MEDS: OLANZapine ODT 5 MG TAB PO PRN (20:12)
[2015-12-28] VITALS (19 sets, daily range): BP systolic 92–133; BP diastolic 55–63; PULSE 62–86; RESP 16–24; TEMP 98–98.9; O2SAT 90–98
[2015-12-28] MEDS: CHLORHEXIDINE GLUCONATE 2 % 1 PACK (2 CLOTHS) TOP SCH (03:16)
[2015-12-28] MEDS: RESP: ALBUTEROL 2.5 MG/IPRATROPIUM 0.5 MG NEB (SCH) NEB ×2 (04:35→08:04)
[2015-12-28] MEDS: METOPROLOL TARTRATE 25 MG TAB TUBE SCH ×3 (06:00→20:10)
[2015-12-28] MEDS: ALPRAZolam 0.25 MG TAB PO SCH ×3 (06:42→20:10)
[2015-12-28] MEDS: SODIUM CHLORIDE 0.9% FLUSH 5 ML FLUSH IVF SCH ×2 (07:55→20:11)
[2015-12-28] MEDS: CHLORHEXIDINE 0.12% (ORAL KIT) 15 ML CUP MT SCH ×2 (08:00→20:11)
[2015-12-28] MEDS: METOCLOPRAMIDE HCL SYRUP 10 MG/10 ML UDC G-TUBE SCH ×2 (08:01→20:10)
[2015-12-28] MEDS: levETIRAcetam 500 MG/5 ML UDC TUBE SCH ×2 (08:01→20:07)
[2015-12-28] MEDS: RANITIDINE HCL SYRUP 150 MG/10 ML UDC TUBE SCH ×2 (08:01→20:07)
[2015-12-28] MEDS: PIPERACIL-TAZO 3.375 GM PREMIX 50 ML IV SCH ×3 (08:01→22:41)
[2015-12-28] MEDS: SENNOSIDES SYRUP 8.8 MG/5 ML CUP PO SCH ×2 (08:01→20:07)
[2015-12-28] MEDS: MORPHINE SULFATE 4 MG/ML INJ IV PUSH PRN ×3 (08:02→23:59)
[2015-12-28] MEDS: ARTIFICIAL TEARS OPTH SOLN 15 ML BTL EACH EYE SCH ×3 (08:02→15:36)
[2015-12-28] MEDS: BACITRACIN TOP OINT 15 GM TUBE TOP SCH ×2 (08:02→21:49)
[2015-12-28] MEDS: RESP: ACETYLCYSTEINE 20% 30 ML NEB NEB SCH ×3 (08:04→23:29)
[2015-12-28] MEDS: ENOXAPARIN SODIUM 30 MG/0.3 ML SYRINGE SQ SCH ×2 (10:16→20:07)
[2015-12-28] MEDS: oxyCODONE HCL ORAL CONC 20 MG/ML SYRINGE PO PRN ×2 (10:16→20:10)
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
--- NOTE | 2015-12-28 10:59 | RADRPT ---
EXAM DATE/TIME: 12/28/2015 10:06 [place] COMPARISON: CHEST SINGLE AP, December 27, 2015, 2:40. INDICATIONS : Evaluate for aspiration. MEDICAL HISTORY : Cardiovascular disease. Hypertension. SURGICAL HISTORY : Tracheostomy. ENCOUNTER: Subsequent ACUITY: 1 month PAIN SCORE: 0/10 LOCATION: Bilateral chest FINDINGS: The cardiac silhouette is enlarged in transverse diameter. A tracheostomy tube is in place in the mid line. There is left lower lobe atelectasis versus pneumonia. There is patchy alveolar disease bilater ally compatible with edema or pneumonia. CONCLUSION: 1. Diffuse alveolar disease and left-sided volume loss. There has been no significant change when com pared to the prior exam. Byron Albright MD on December 28, 2015 at 10:55 Board Certified Radiologist. This report was verified electronically.
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
[2015-12-28] MEDS: OLANZapine ODT 5 MG TAB PO PRN (20:10)
[2015-12-28] MEDS: ONDANSETRON HCL 4 MG/2 ML VIAL IV PRN (20:40)
[2015-12-28] MEDS: RESP: ALBUTEROL 2.5 MG/IPRATROPIUM 0.5 MG NEB (PRN) INH (23:29)
[2015-12-29] VITALS (19 sets, daily range): BP systolic 103–152; BP diastolic 40–69; PULSE 65–102; RESP 16–27; TEMP 98.4–98.6; O2SAT 92–99
[2015-12-29] MEDS: CHLORHEXIDINE GLUCONATE 2 % 1 PACK (2 CLOTHS) TOP SCH (04:28)
[2015-12-29] MEDS: ALPRAZolam 0.25 MG TAB PO SCH ×3 (05:22→20:29)
[2015-12-29] MEDS: METOPROLOL TARTRATE 25 MG TAB TUBE SCH ×3 (05:22→20:29)
[2015-12-29] MEDS: RESP: ALBUTEROL 2.5 MG/IPRATROPIUM 0.5 MG NEB (PRN) INH (07:34)
[2015-12-29] MEDS: RESP: ACETYLCYSTEINE 20% 30 ML NEB NEB SCH ×2 (07:34→14:56)
[2015-12-29] MEDS: CHLORHEXIDINE 0.12% (ORAL KIT) 15 ML CUP MT SCH ×2 (08:00→20:30)
[2015-12-29] MEDS: PIPERACIL-TAZO 3.375 GM PREMIX 50 ML IV SCH ×3 (08:33→22:41)
[2015-12-29] MEDS: ENOXAPARIN SODIUM 30 MG/0.3 ML SYRINGE SQ SCH ×2 (08:34→20:29)
[2015-12-29] MEDS: METOCLOPRAMIDE HCL SYRUP 10 MG/10 ML UDC G-TUBE SCH ×2 (08:34→20:29)
[2015-12-29] MEDS: RANITIDINE HCL SYRUP 150 MG/10 ML UDC TUBE SCH ×2 (08:34→20:29)
[2015-12-29] MEDS: MORPHINE SULFATE 4 MG/ML INJ IV PUSH PRN ×4 (08:34→20:30)
[2015-12-29] MEDS: levETIRAcetam 500 MG/5 ML UDC TUBE SCH ×2 (08:34→22:42)
[2015-12-29] MEDS: BACITRACIN TOP OINT 15 GM TUBE TOP SCH ×2 (08:35→20:31)
[2015-12-29] MEDS: SENNOSIDES SYRUP 8.8 MG/5 ML CUP PO SCH ×2 (08:35→20:29)
[2015-12-29] MEDS: fentaNYL 50 MCG/HR PATCH TD SCH (08:35)
[2015-12-29] MEDS: ARTIFICIAL TEARS OPTH SOLN 15 ML BTL EACH EYE SCH ×3 (08:35→15:31)
[2015-12-29] MEDS: SODIUM CHLORIDE 0.9% FLUSH 5 ML FLUSH IVF SCH ×2 (08:35→20:30)
[2015-12-29] MEDS: REMOVE OLD PATCH TD SCH (08:35)
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
[2015-12-29 15:39] LABS: LIPASE-PLEURAL FLUID GREATER THAN 1500 U/L
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
[2015-12-29] MEDS: oxyCODONE HCL ORAL CONC 20 MG/ML SYRINGE PO PRN (20:28)
[2015-12-29] MEDS: OLANZapine ODT 5 MG TAB PO PRN (20:29)
[2015-12-29] MEDS: ONDANSETRON HCL 4 MG/2 ML VIAL IV PRN (20:29)
[2015-12-30] VITALS (20 sets, daily range): BP systolic 90–162; BP diastolic 51–74; PULSE 71–88; RESP 16–21; TEMP 97.6–98.4; O2SAT 93–100
[2015-12-30] MEDS: CHLORHEXIDINE GLUCONATE 2 % 1 PACK (2 CLOTHS) TOP SCH (04:04)
[2015-12-30] MEDS: ALPRAZolam 0.25 MG TAB PO SCH ×4 (06:00→23:48)
[2015-12-30] MEDS: METOPROLOL TARTRATE 25 MG TAB TUBE SCH ×4 (06:00→23:48)
[2015-12-30] MEDS: RESP: ALBUTEROL 2.5 MG/IPRATROPIUM 0.5 MG NEB (PRN) INH (08:02)
[2015-12-30] MEDS: RESP: ACETYLCYSTEINE 20% 30 ML NEB NEB SCH ×3 (08:02→15:19)
[2015-12-30] MEDS: ENOXAPARIN SODIUM 30 MG/0.3 ML SYRINGE SQ SCH ×2 (08:18→23:49)
[2015-12-30] MEDS: SENNOSIDES SYRUP 8.8 MG/5 ML CUP PO SCH ×2 (08:18→20:20)
[2015-12-30] MEDS: RANITIDINE HCL SYRUP 150 MG/10 ML UDC TUBE SCH ×2 (08:18→20:20)
[2015-12-30] MEDS: CHLORHEXIDINE 0.12% (ORAL KIT) 15 ML CUP MT SCH ×2 (08:19→20:00)
[2015-12-30] MEDS: METOCLOPRAMIDE HCL SYRUP 10 MG/10 ML UDC G-TUBE SCH ×2 (08:19→20:20)
[2015-12-30] MEDS: oxyCODONE HCL ORAL CONC 20 MG/ML SYRINGE PO PRN ×2 (08:19→20:21)
[2015-12-30] MEDS: SODIUM CHLORIDE 0.9% FLUSH 5 ML FLUSH IVF SCH ×2 (08:19→20:22)
[2015-12-30] MEDS: PIPERACIL-TAZO 3.375 GM PREMIX 50 ML IV SCH ×2 (08:19→16:06)
[2015-12-30] MEDS: ARTIFICIAL TEARS OPTH SOLN 15 ML BTL EACH EYE SCH ×3 (08:19→17:16)
[2015-12-30] MEDS: BACITRACIN TOP OINT 15 GM TUBE TOP SCH ×2 (08:19→21:00)
[2015-12-30] MEDS: levETIRAcetam 500 MG/5 ML UDC TUBE SCH ×2 (08:19→20:20)
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
[2015-12-30] MEDS ORDERED: ePHEDrine/NS 50 MG/5 ML SYR IV ONE (12:00)
[2015-12-30] MEDS ORDERED: PHENYLEPH/NS 1000 MCG/10 ML SYR IV ONE (12:00)
[2015-12-30] MEDS ORDERED: PROPOFOL 200 MG/20 ML AMP IV PUSH ONE (13:23)
--- NOTE | 2015-12-30 13:38 | PD.PROCEDR ---
GI Procedure PROCEDURE PERFORMED EGD INDICATION FOR PROCEDURE Gastroscope pulmonary fistula PROCEDURE: The procedure, risks and benefits were discussed with Mr. Pavon and informed consent was obtained. Anesthesia sedated him with Diprivan. He was placed in the left lateral decubitus position. EGD: The Pentax videoscope was introduced through the oropharynx and advanced to the second portion of the duodenum under direct visualization. Retroflexion was performed in the stomach. FINDINGS: The esophagus this was normal with good air distention The stomach there was a GJ tube noted the gastric mucosa appeared to be unremarkable and within normal limits I was unable to get sufficient insufflation of the stomach to get an adequate evaluation for fistula this may suggest that the fistula is originating from the stomach The duodenum this was unremarkable and within normal limits with good air distention ESTIMATED BLOOD LOSS: None SPECIMENS REMOVED: None COMPLICATIONS: None IMPRESSION: Unremarkable EGD Gastric pulmonary fistula PLAN: Will proceed with CT of the abdomen and chest Srikanth Garvin MD Dec 30, 2015 13:38
[2015-12-30] MEDS: OLANZapine ODT 5 MG TAB PO PRN (14:09)
--- NOTE | 2015-12-30 15:02 | RADRPT ---
EXAM DATE/TIME: 12/30/2015 14:42 [facility] COMPARISON: CT THORAX W/O CONTRAST, December 30, 2015, 14:42. INDICATIONS : Evaluate for possible gastropulmonary fistula. ORAL CONTRAST: Prescribed oral contrast ingested. RADIATION DOSE: 19.43 CTDIvol (mGy) ; Combined studies - Thorax/Abdomen/Pelvis MEDICAL HISTORY : Cardiovascular disease. Hypertension. Gastroesophageal reflux disease.Hiatal hernia. SURGICAL HISTORY : Nisen funduplication. ENCOUNTER: Initial ACUITY: 1 day PAIN SCALE: 0/10 LOCATION: Bilateral abdomen TECHNIQUE: Volumetric scanning of the abdomen and pelvis was performed. Using automated exposure control and ad justment of the mA and/or kV according to patient size, radiation dose was kept as low as reasonably achievable to obtain optimal diagnostic quality images. The lack of IV contrast limits the diagnosis for certain organ pathology. FINDINGS: LOWER LUNGS: Infiltrates in both lung bases. Small right-sided effusion. LIVER: Homogeneous density without lesion. There is no dilation of the biliary tree. SPLEEN: Normal size without lesion. Splenic granulomas. PANCREAS: Within normal limits. KIDNEYS: Normal in size and shape. There is no mass, stone, or hydronephrosis. ADRENAL GLANDS: Within normal limits. VASCULAR: There is no aortic aneurysm. Atherosclerotic changes. BOWEL/MESENTERY: There is a gastrostomy tube in the stomach. There is also a jejunostomy tube in the small bowel. Cont rast was placed through the gastrostomy tube and the stomach is filled with contrast and air. Contras t is seen to the stomach and proximal small bowel. The bowel gas pattern is within normal limits. The re is stool in the colon. No fistula is seen from the stomach into the thorax. No extravasation of co ntrast is demonstrated. ABDOMINAL WALL: There is edema in the subcutaneous soft tissues indicating anasarca. RETROPERITONEUM: There is no lymphadenopathy. BLADDER: No wall thickening or mass. REPRODUCTIVE: Within normal limits. INGUINAL: There is no lymphadenopathy or hernia. MUSCULOSKELETAL: Within normal limits for patient age. Bony degenerative changes. CONCLUSION: There was distention of the stomach with contrast and air. There was no evidence of a fistula between the stomach and the thorax. No extravasation of contrast is seen outside the GI tract. Hu Reyes MD on December 30, 2015 at 14:55 Board Certified Radiologist. This report was verified electronically.
--- NOTE | 2015-12-30 15:07 | RADRPT ---
EXAM DATE/TIME: 12/30/2015 14:42 This report includes an Addendum and supersedes previous reports for this exam. [facility] COMPARISON: No previous studies available for comparison. INDICATIONS : Evaluate for gastropulmonary fistula. RADIATION DOSE: 19.43 CTDIvol (mGy) ; Combined studies - Thorax/Abdomen/Pelvis MEDICAL HISTORY : Cardiovascular disease. Hypertension. Gastroesophageal reflux disease. Hiatal hernia. SURGICAL HISTORY : Nisen funduplication. ENCOUNTER: Initial ACUITY: 1 day PAIN SCALE: 0/10 LOCATION: Bilateral chest TECHNIQUE: Volumetric scanning of the chest was performed. Using automated exposure control and adjustment of t he mA and/or kV according to patient size, radiation dose was kept as low as reasonably achievable to obtain optimal diagnostic quality images. FINDINGS: LUNGS: There are diffuse prominent pulmonary infiltrates and airspace disease throughout both lung lemons, left greater than right. There is a small right-sided pleural effusion. There is no evidence of pneum othorax. There is no evidence of contrast seen in the airway or lung lemons. PLEURAE: Small right-sided pleural effusion. MEDIASTINUM: Several nonspecific mediastinal lymph nodes are noted. There is a tracheostomy tube in place which ap pears to be in good position. There is an expandable stent is noted in the left mainstem bronchus. He art size is within normal limits. Mild atherosclerotic changes are seen in the thoracic aorta. There is some coronary calcifications present. There is a mediastinal shift to the left characteristic for atelectasis. AXILLAE: Within normal limits. No lymphadenopathy. MUSCULOSKELETAL: Within normal limits for patient age. Degenerative changes. MISCELLANEOUS: The visualized upper abdominal organs demonstrate no acute abnormality. CONCLUSION: 1. No evidence of any fistula between the stomach, lung lemons or airways within the thorax. 2. Prominent bilateral pulmonary airspace infiltrates, left greater than right 3. Small right-sided effusion. 4. No evidence of pneumothorax. 5. Expandable stent in the left mainstem bronchus which appears to be patent. Hu Reyes MD on December 30, 2015 at 15:00 Board Certified Radiologist. This report was verified electronically. ADDENDUM: On series 4, slice image 31, there appears to be a fistula between the esophagus and the left mainste m bronchus stent. Hu Reyes MD on January 07, 2016 at 6:53 Board Certified Radiologist. This report was verified electronically.
[2015-12-30] MEDS ORDERED: DIATRIZOATE MEGLUM/DIATRIZOATE SOD 9 ML CUP PO ONE (16:00)
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
[2015-12-31] VITALS (18 sets, daily range): BP systolic 108–157; BP diastolic 56–76; PULSE 72–99; RESP 16–25; TEMP 97.6–98.3; O2SAT 91–98
[2015-12-31] MEDS: PIPERACIL-TAZO 3.375 GM PREMIX 50 ML IV SCH ×3 (00:50→15:40)
[2015-12-31] MEDS: CHLORHEXIDINE GLUCONATE 2 % 1 PACK (2 CLOTHS) TOP SCH (03:49)
[2015-12-31] MEDS: ALPRAZolam 0.25 MG TAB PO SCH ×3 (05:41→21:57)
[2015-12-31] MEDS: oxyCODONE HCL ORAL CONC 20 MG/ML SYRINGE PO PRN (05:41)
[2015-12-31] MEDS: METOPROLOL TARTRATE 25 MG TAB TUBE SCH ×3 (05:44→21:58)
[2015-12-31] MEDS: levETIRAcetam 500 MG/5 ML UDC TUBE SCH ×2 (08:30→20:30)
[2015-12-31] MEDS: ARTIFICIAL TEARS OPTH SOLN 15 ML BTL EACH EYE SCH ×3 (08:30→17:07)
[2015-12-31] MEDS: SENNOSIDES SYRUP 8.8 MG/5 ML CUP PO SCH ×2 (08:30→20:32)
[2015-12-31] MEDS: SODIUM CHLORIDE 0.9% FLUSH 5 ML FLUSH IVF SCH ×2 (08:30→20:31)
[2015-12-31] MEDS: CHLORHEXIDINE 0.12% (ORAL KIT) 15 ML CUP MT SCH ×2 (08:30→20:31)
[2015-12-31] MEDS: METOCLOPRAMIDE HCL SYRUP 10 MG/10 ML UDC G-TUBE SCH ×2 (08:30→20:30)
[2015-12-31] MEDS: RANITIDINE HCL SYRUP 150 MG/10 ML UDC TUBE SCH ×2 (08:30→21:57)
[2015-12-31] MEDS: BACITRACIN TOP OINT 15 GM TUBE TOP SCH ×2 (08:31→20:32)
[2015-12-31] MEDS: ENOXAPARIN SODIUM 30 MG/0.3 ML SYRINGE SQ SCH ×2 (08:32→21:58)
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
[2015-12-31] MEDS: OLANZapine ODT 5 MG TAB PO PRN (12:37)
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
[2016-01-01] VITALS (17 sets, daily range): BP systolic 92–175; BP diastolic 53–90; PULSE 74–88; RESP 18–26; TEMP 97.4–99.2; O2SAT 88–97
[2016-01-01] MEDS: PIPERACIL-TAZO 3.375 GM PREMIX 50 ML IV SCH ×3 (00:43→16:10)
[2016-01-01] MEDS: CHLORHEXIDINE GLUCONATE 2 % 1 PACK (2 CLOTHS) TOP SCH (04:00)
[2016-01-01] MEDS: METOPROLOL TARTRATE 25 MG TAB TUBE SCH ×3 (05:24→21:36)
[2016-01-01] MEDS: ALPRAZolam 0.25 MG TAB PO SCH ×3 (05:24→21:35)
[2016-01-01] MEDS: CHLORHEXIDINE 0.12% (ORAL KIT) 15 ML CUP MT SCH ×2 (08:00→20:32)
[2016-01-01] MEDS: SENNOSIDES SYRUP 8.8 MG/5 ML CUP PO SCH ×2 (08:06→21:35)
[2016-01-01] MEDS: levETIRAcetam 500 MG/5 ML UDC TUBE SCH ×2 (08:06→20:32)
[2016-01-01] MEDS: METOCLOPRAMIDE HCL SYRUP 10 MG/10 ML UDC G-TUBE SCH ×2 (08:06→20:32)
[2016-01-01] MEDS: RANITIDINE HCL SYRUP 150 MG/10 ML UDC TUBE SCH ×2 (08:06→20:32)
[2016-01-01] MEDS: fentaNYL 50 MCG/HR PATCH TD SCH (08:07)
[2016-01-01] MEDS: REMOVE OLD PATCH TD SCH (08:08)
[2016-01-01] MEDS: ARTIFICIAL TEARS OPTH SOLN 15 ML BTL EACH EYE SCH ×3 (08:08→16:54)
[2016-01-01] MEDS: BACITRACIN TOP OINT 15 GM TUBE TOP SCH ×2 (08:08→20:32)
[2016-01-01] MEDS: SODIUM CHLORIDE 0.9% FLUSH 5 ML FLUSH IVF SCH ×2 (08:08→20:32)
[2016-01-01] MEDS: oxyCODONE HCL ORAL CONC 20 MG/ML SYRINGE PO PRN ×2 (08:09→13:56)
[2016-01-01] MEDS: ENOXAPARIN SODIUM 30 MG/0.3 ML SYRINGE SQ SCH ×2 (09:59→21:36)
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
[2016-01-01] MEDS: MORPHINE SULFATE 4 MG/ML INJ IV PUSH PRN (20:33)
[2016-01-02] VITALS (14 sets, daily range): BP systolic 110–166; BP diastolic 59–82; PULSE 74–89; RESP 16–28; TEMP 98.2–99.3; O2SAT 92–99
[2016-01-02] MEDS: PIPERACIL-TAZO 3.375 GM PREMIX 50 ML IV SCH ×4 (01:08→23:55)
[2016-01-02] MEDS: CHLORHEXIDINE GLUCONATE 2 % 1 PACK (2 CLOTHS) TOP SCH (03:23)
[2016-01-02] MEDS: ALPRAZolam 0.25 MG TAB PO SCH ×3 (06:04→21:16)
[2016-01-02] MEDS: METOPROLOL TARTRATE 25 MG TAB TUBE SCH ×3 (06:04→21:16)
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
[2016-01-02] MEDS: METOCLOPRAMIDE HCL SYRUP 10 MG/10 ML UDC G-TUBE SCH ×2 (08:39→20:17)
[2016-01-02] MEDS: ENOXAPARIN SODIUM 30 MG/0.3 ML SYRINGE SQ SCH ×2 (08:39→21:16)
[2016-01-02] MEDS: SENNOSIDES SYRUP 8.8 MG/5 ML CUP PO SCH ×2 (08:39→20:17)
[2016-01-02] MEDS: RANITIDINE HCL SYRUP 150 MG/10 ML UDC TUBE SCH ×2 (08:39→20:17)
[2016-01-02] MEDS: levETIRAcetam 500 MG/5 ML UDC TUBE SCH ×2 (08:39→20:17)
[2016-01-02] MEDS: BACITRACIN TOP OINT 15 GM TUBE TOP SCH ×2 (08:40→20:18)
[2016-01-02] MEDS: SODIUM CHLORIDE 0.9% FLUSH 5 ML FLUSH IVF SCH ×2 (08:40→20:18)
[2016-01-02] MEDS: ARTIFICIAL TEARS OPTH SOLN 15 ML BTL EACH EYE SCH ×3 (08:40→18:00)
[2016-01-02] MEDS: CHLORHEXIDINE 0.12% (ORAL KIT) 15 ML CUP MT SCH ×2 (08:40→19:24)
--- NOTE | 2016-01-02 13:31 | HHI.HCPN ---
Follow-Up Palliative Care & SW Visit Met with Mr. Pavon in his room. He's sitting up in bed, able to make his needs known and pleasant throughout conversation. Continues to present with difficulty articulating words through mouthing and writing but better able to understand today. He reflects on visitors ([employer]) that he states visited last night, still unknown contact information. Discussed some life reflections, most specifically his and children that he "would for". When asked if he feels SOB he writes "short of life". When questioned further he states he is just feeling down and tired today. Expressed some concerns with being homeless when he is discharged from the hospital. Explained CM will be assisting in finding them a safe discharge plan when he is medical stable and physicians feel he is able to be discharged from the hospital. Reflects on some depression he experienced in 2003 relating to a prolonged hospitalization. Provided emotional support. Discussed health care surrogate designation. Appears to have insight into whom he would trust to honor his wishes if he was unable to speak for himself. He wishes to appoint [employer] Kaufman (long-term friends) as co-health care surrogates. Completed paperwork with him. Asked OBSTETRICS/GYNECOLOGY NURSE Petty Yin to run [email or web address] to find contact information to include no paperwork. In the meantime paperwork will be faxed to HIM to be scanned into EMR and copy placed on chart. Mr. Pavon also reports he has a step-son, Robinson Kulkarni, who owns [employer] in [facility] [facility]. He does not wish to involve him at this time and does not wish to appoint him alternate health care surrogate. Palliative care will continue to follow throughout hospitalization. SW will follow as needed for emotional and social support. Mindi Anderson Jan 02, 2016 13:31
[2016-01-02] MEDS: hydrALAZINE HCL 20 MG/ML VIAL IV PUSH PRN (15:36)
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
[2016-01-02] MEDS: MAGNESIUM HYDROXIDE SUSP 30 ML CUP PEG PRN (20:17)
[2016-01-02] MEDS: MORPHINE SULFATE 4 MG/ML INJ IV PUSH PRN (21:15)
[2016-01-03] VITALS (12 sets, daily range): BP systolic 106–134; BP diastolic 61–89; PULSE 75–90; RESP 18–27; TEMP 97.6–98.6; O2SAT 91–97
[2016-01-03] MEDS: CHLORHEXIDINE GLUCONATE 2 % 1 PACK (2 CLOTHS) TOP SCH (03:07)
[2016-01-03 04:20] LABS: AUTOMATED NEUTROPHIL # 6.4 TH/MM3 (1.8-7.7); BASOPHIL # 0.1 TH/MM3 (0-0.2); BASOPHIL % 0.6 % (0.0-2.0); EOSINOPHIL # 0.5 TH/MM3 (0-0.4); EOSINOPHIL % 5.2 % (0.0-4.0); HEMATOCRIT 32.5 % (39.0-51.0); HEMO FLAGS DIFF FINAL; LYMPH % 15.7 % (9.0-44.0); LYMPHOCYTE # 1.4 TH/MM3 (1.0-4.8); MEAN CELL VOLUME 97.8 FL (80.0-100.0); MEAN CORPUSCULAR HEMOGLOBIN 31.4 PG (27.0-34.0); MEAN CORPUSCULAR HGB CONC 32.1 % (32.0-36.0); NEUT % 70.5 % (16.0-70.0); PLATELET COUNT 322 TH/MM3 (150-450); RED BLOOD COUNT 3.32 MIL/MM3 (4.50-5.90); RED CELL DISTRIBUTION WIDTH 13.9 % (11.6-17.2); WHITE BLOOD COUNT 9.1 TH/MM3 (4.0-11.0)
[2016-01-03] MEDS: METOPROLOL TARTRATE 25 MG TAB TUBE SCH ×3 (05:20→22:12)
[2016-01-03] MEDS: ALPRAZolam 0.25 MG TAB PO SCH ×3 (05:20→22:12)
[2016-01-03] MEDS: MORPHINE SULFATE 4 MG/ML INJ IV PUSH PRN (05:43)
--- NOTE | 2016-01-03 06:28 | RADRPT ---
EXAM DATE/TIME: 01/03/2016 05:12 [place] COMPARISON: CHEST SINGLE AP, December 26, 2015, 5:22. CHEST SINGLE AP, December 28, 2015, 10:06. INDICATIONS : Short of breath. MEDICAL HISTORY : Cardiovascular disease. Hypertension. SURGICAL HISTORY : Tracheostomy. ENCOUNTER: Subsequent ACUITY: 1 month PAIN SCORE: Non-responsive. LOCATION: Bilateral chest FINDINGS: The cardiac silhouette is normal in transverse diameter. A tracheostomy tube is in place in the midli ne. There is extensive left-sided volume loss slightly improved when compared to the prior study.. Th ere is extensive bilateral scarring. CONCLUSION: 1. Slight improved aeration in the left lung Byron Albright MD on January 03, 2016 at 6:25 Board Certified Radiologist. This report was verified electronically.
[2016-01-03 07:11] LABS: POTASSIUM 4.4 MEQ/L (3.5-5.1)
[2016-01-03 07:12] LABS: BICARBONATE 29.6 MEQ/L (21.0-32.0)
[2016-01-03] MEDS: RANITIDINE HCL SYRUP 150 MG/10 ML UDC TUBE SCH ×2 (08:30→20:58)
[2016-01-03] MEDS: METOCLOPRAMIDE HCL SYRUP 10 MG/10 ML UDC G-TUBE SCH ×2 (08:30→20:57)
[2016-01-03] MEDS: SENNOSIDES SYRUP 8.8 MG/5 ML CUP PO SCH ×2 (08:30→20:57)
[2016-01-03] MEDS: levETIRAcetam 500 MG/5 ML UDC TUBE SCH ×2 (08:30→20:58)
[2016-01-03] MEDS: PIPERACIL-TAZO 3.375 GM PREMIX 50 ML IV SCH ×2 (08:30→15:53)
[2016-01-03] MEDS: CHLORHEXIDINE 0.12% (ORAL KIT) 15 ML CUP MT SCH ×2 (08:31→20:57)
[2016-01-03] MEDS: BACITRACIN TOP OINT 15 GM TUBE TOP SCH ×2 (08:31→20:57)
[2016-01-03] MEDS: SODIUM CHLORIDE 0.9% FLUSH 5 ML FLUSH IVF SCH ×2 (08:31→20:57)
[2016-01-03] MEDS: ARTIFICIAL TEARS OPTH SOLN 15 ML BTL EACH EYE SCH ×3 (08:31→18:42)
[2016-01-03] MEDS: ENOXAPARIN SODIUM 30 MG/0.3 ML SYRINGE SQ SCH ×2 (10:35→22:12)
[2016-01-03] MEDS: oxyCODONE HCL ORAL CONC 20 MG/ML SYRINGE PO PRN (12:46)
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
[2016-01-03] MEDS: DEXT 5%-NACL 0.45% 1000 ML INJ 1,000 ML IV SCH (16:23)
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
[2016-01-04] VITALS (11 sets, daily range): BP systolic 104–162; BP diastolic 59–85; PULSE 75–92; RESP 10–27; TEMP 98.2–98.8; O2SAT 88–95
[2016-01-04] MEDS: PIPERACIL-TAZO 3.375 GM PREMIX 50 ML IV SCH ×3 (00:58→14:59)
[2016-01-04] MEDS: CHLORHEXIDINE GLUCONATE 2 % 1 PACK (2 CLOTHS) TOP SCH (03:15)
[2016-01-04] MEDS: ALPRAZolam 0.25 MG TAB PO SCH ×3 (06:00→23:08)
[2016-01-04] MEDS: METOPROLOL TARTRATE 25 MG TAB TUBE SCH ×3 (06:00→23:09)
[2016-01-04] MEDS: MORPHINE SULFATE 4 MG/ML INJ IV PUSH PRN ×3 (06:01→20:30)
[2016-01-04] MEDS: ENOXAPARIN SODIUM 30 MG/0.3 ML SYRINGE SQ SCH ×2 (08:33→23:09)
[2016-01-04] MEDS: CHLORHEXIDINE 0.12% (ORAL KIT) 15 ML CUP MT SCH ×2 (08:33→20:27)
[2016-01-04] MEDS: BACITRACIN TOP OINT 15 GM TUBE TOP SCH ×2 (08:34→20:27)
[2016-01-04] MEDS: DEXT 5%-NACL 0.45% 1000 ML INJ 1,000 ML IV SCH (08:34)
[2016-01-04] MEDS: RANITIDINE HCL SYRUP 150 MG/10 ML UDC TUBE SCH ×2 (08:34→20:27)
[2016-01-04] MEDS: levETIRAcetam 500 MG/5 ML UDC TUBE SCH ×2 (08:34→20:26)
[2016-01-04] MEDS: METOCLOPRAMIDE HCL SYRUP 10 MG/10 ML UDC G-TUBE SCH ×2 (08:34→20:26)
[2016-01-04] MEDS: SENNOSIDES SYRUP 8.8 MG/5 ML CUP PO SCH ×2 (08:34→20:27)
[2016-01-04] MEDS: ARTIFICIAL TEARS OPTH SOLN 15 ML BTL EACH EYE SCH ×3 (08:34→17:26)
[2016-01-04] MEDS: REMOVE OLD PATCH TD SCH (08:35)
[2016-01-04] MEDS: fentaNYL 50 MCG/HR PATCH TD SCH (08:35)
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
[2016-01-04] MEDS: SODIUM CHLORIDE 0.9% FLUSH 5 ML FLUSH IVF SCH ×2 (08:48→20:26)
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
--- NOTE | 2016-01-04 15:37 | EKG ---
Date Performed: 01/03/2016 Time Performed: 20:05:32 PTAGE: 75 years EKG: Sinus rhythm with PAC(s) Short VT interval Septal T wave changes are nonspecific Borderline ECG PREVIOUS TRACING : 12/09/2015 08.24 No significant change from previous tracing noted. DOCTOR: Agusto Wilson Interpretating Date/Time 01/04/2016 14:40:00
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
[2016-01-05] VITALS (14 sets, daily range): BP systolic 123–142; BP diastolic 59–76; PULSE 76–104; RESP 15–23; TEMP 88.3–98.9; O2SAT 89–95
[2016-01-05] MEDS: PIPERACIL-TAZO 3.375 GM PREMIX 50 ML IV SCH ×3 (00:57→15:51)
[2016-01-05] MEDS: DEXT 5%-NACL 0.45% 1000 ML INJ 1,000 ML IV SCH ×2 (01:00→17:08)
[2016-01-05] MEDS: CHLORHEXIDINE GLUCONATE 2 % 1 PACK (2 CLOTHS) TOP SCH (04:08)
[2016-01-05] MEDS: MORPHINE SULFATE 4 MG/ML INJ IV PUSH PRN ×4 (05:30→20:52)
[2016-01-05] MEDS: METOPROLOL TARTRATE 25 MG TAB TUBE SCH ×3 (05:59→22:54)
[2016-01-05] MEDS: ALPRAZolam 0.25 MG TAB PO SCH ×3 (05:59→22:53)
[2016-01-05] MEDS: CHLORHEXIDINE 0.12% (ORAL KIT) 15 ML CUP MT SCH ×2 (08:00→20:00)
[2016-01-05] MEDS: RANITIDINE HCL SYRUP 150 MG/10 ML UDC TUBE SCH ×2 (08:00→20:49)
[2016-01-05] MEDS: ARTIFICIAL TEARS OPTH SOLN 15 ML BTL EACH EYE SCH ×3 (08:00→18:01)
[2016-01-05] MEDS: METOCLOPRAMIDE HCL SYRUP 10 MG/10 ML UDC G-TUBE SCH ×2 (08:00→20:49)
[2016-01-05] MEDS: levETIRAcetam 500 MG/5 ML UDC TUBE SCH ×2 (08:00→20:49)
[2016-01-05] MEDS: SENNOSIDES SYRUP 8.8 MG/5 ML CUP PO SCH ×2 (08:00→20:49)
[2016-01-05] MEDS: BACITRACIN TOP OINT 15 GM TUBE TOP SCH ×2 (08:01→20:51)
[2016-01-05] MEDS: SODIUM CHLORIDE 0.9% FLUSH 5 ML FLUSH IVF SCH ×2 (08:01→20:50)
[2016-01-05] MEDS: ENOXAPARIN SODIUM 30 MG/0.3 ML SYRINGE SQ SCH ×2 (10:21→22:54)
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
--- NOTE | 2016-01-05 15:24 | RADRPT ---
EXAM DATE/TIME: 01/05/2016 14:16 [place] COMPARISON: No previous studies available for comparison. INDICATIONS : Tracheoesophageal fistula FLUORO TIME: 1.4 minutes IMAGE COUNT: CONTRAST: 1. Liquid E-Z Paque Barium Sulfate (60% w/v, 41% w.w) MEDICAL HISTORY : Hypertension. Gastroesophageal reflux disease. Hiatal hernia. SURGICAL HISTORY : nisen funduplication ENCOUNTER: Initial ACUITY: 1 month PAIN SCORE: Non-responsive. LOCATION: Bilateral abdomen FINDINGS: Patient has a stent in the left mainstem bronchus. During p.o. intake of barium, communication is dem onstrated between the mid esophagus and the left mainstem bronchus. Additional barium was administered into the stomach via the GJ tube. No gastroesophageal reflux was r eadily demonstrated. . CONCLUSION: There is a fistula between the esophagus and left main stem bronchus where the stent is. No gastroeso phageal reflux was readily demonstrated. Martinez Arciniega MD on January 05, 2016 at 15:08 Board Certified Radiologist. This report was verified electronically.
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
[2016-01-06] VITALS (13 sets, daily range): BP systolic 111–156; BP diastolic 59–80; PULSE 80–114; RESP 15–21; TEMP 98.1–98.7; O2SAT 92–96
[2016-01-06 04:27] LABS: AUTOMATED NEUTROPHIL # 4.7 TH/MM3 (1.8-7.7); BASOPHIL # 0.1 TH/MM3 (0-0.2); EOSINOPHIL # 0.4 TH/MM3 (0-0.4); EOSINOPHIL % 5.3 % (0.0-4.0); HEMATOCRIT 29.8 % (39.0-51.0); HEMO FLAGS DIFF FINAL; LYMPH % 15.9 % (9.0-44.0); LYMPHOCYTE # 1.1 TH/MM3 (1.0-4.8); MEAN CELL VOLUME 96.9 FL (80.0-100.0); MEAN CORPUSCULAR HEMOGLOBIN 31.6 PG (27.0-34.0); MEAN CORPUSCULAR HGB CONC 32.6 % (32.0-36.0); MONO % 10.4 % (0.0-8.0); NEUT % 67.4 % (16.0-70.0); PLATELET COUNT 269 TH/MM3 (150-450); RED BLOOD COUNT 3.07 MIL/MM3 (4.50-5.90); RED CELL DISTRIBUTION WIDTH 14.3 % (11.6-17.2)
[2016-01-06] MEDS: CHLORHEXIDINE GLUCONATE 2 % 1 PACK (2 CLOTHS) TOP SCH (04:47)
[2016-01-06 04:57] LABS: BICARBONATE 27.6 MEQ/L (21.0-32.0); POTASSIUM 3.8 MEQ/L (3.5-5.1)
[2016-01-06] MEDS: METOPROLOL TARTRATE 25 MG TAB TUBE SCH ×3 (05:19→21:25)
[2016-01-06] MEDS: MORPHINE SULFATE 4 MG/ML INJ IV PUSH PRN ×2 (05:19→15:00)
[2016-01-06] MEDS: ALPRAZolam 0.25 MG TAB PO SCH ×3 (05:19→21:25)
[2016-01-06] MEDS: METOCLOPRAMIDE HCL SYRUP 10 MG/10 ML UDC G-TUBE SCH ×2 (09:07→21:25)
[2016-01-06] MEDS: ARTIFICIAL TEARS OPTH SOLN 15 ML BTL EACH EYE SCH ×3 (09:08→17:09)
[2016-01-06] MEDS: CHLORHEXIDINE 0.12% (ORAL KIT) 15 ML CUP MT SCH ×2 (09:08→20:00)
[2016-01-06] MEDS: BACITRACIN TOP OINT 15 GM TUBE TOP SCH ×2 (09:08→21:00)
[2016-01-06] MEDS: RANITIDINE HCL SYRUP 150 MG/10 ML UDC TUBE SCH ×2 (09:08→21:26)
[2016-01-06] MEDS: levETIRAcetam 500 MG/5 ML UDC TUBE SCH ×2 (09:08→21:25)
[2016-01-06] MEDS: SODIUM CHLORIDE 0.9% FLUSH 5 ML FLUSH IVF SCH ×2 (09:08→21:26)
[2016-01-06] MEDS: ENOXAPARIN SODIUM 30 MG/0.3 ML SYRINGE SQ SCH ×2 (09:09→21:25)
[2016-01-06] MEDS: SENNOSIDES SYRUP 8.8 MG/5 ML CUP PO SCH ×2 (09:45→21:25)
[2016-01-06] MEDS: DEXT 5%-NACL 0.9% 1000 ML INJ 1,000 ML IV SCH (11:08)
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
[2016-01-06 11:25] LABS: MAGNESIUM 2.1 MG/DL (1.5-2.5)
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
[2016-01-07] VITALS (15 sets, daily range): BP systolic 96–150; BP diastolic 50–83; PULSE 77–100; RESP 15–28; TEMP 98.1–98.6; O2SAT 92–99
[2016-01-07] MEDS: CHLORHEXIDINE GLUCONATE 2 % 1 PACK (2 CLOTHS) TOP SCH (04:00)
[2016-01-07] MEDS: ALPRAZolam 0.25 MG TAB PO SCH ×3 (04:38→22:00)
[2016-01-07] MEDS: oxyCODONE HCL ORAL CONC 20 MG/ML SYRINGE PO PRN ×2 (04:38→14:00)
[2016-01-07] MEDS: METOPROLOL TARTRATE 25 MG TAB TUBE SCH ×3 (05:52→22:00)
[2016-01-07] MEDS: CHLORHEXIDINE 0.12% (ORAL KIT) 15 ML CUP MT SCH ×2 (08:00→20:00)
[2016-01-07] MEDS: ARTIFICIAL TEARS OPTH SOLN 15 ML BTL EACH EYE SCH ×3 (09:00→18:00)
[2016-01-07] MEDS: REMOVE OLD PATCH TD SCH (09:00)
[2016-01-07] MEDS: BACITRACIN TOP OINT 15 GM TUBE TOP SCH ×2 (09:00→21:00)
[2016-01-07] MEDS: ENOXAPARIN SODIUM 30 MG/0.3 ML SYRINGE SQ SCH ×2 (09:23→22:00)
[2016-01-07] MEDS: RANITIDINE HCL SYRUP 150 MG/10 ML UDC TUBE SCH ×2 (09:23→21:00)
[2016-01-07] MEDS: METOCLOPRAMIDE HCL SYRUP 10 MG/10 ML UDC G-TUBE SCH ×2 (09:23→21:00)
[2016-01-07] MEDS: SENNOSIDES SYRUP 8.8 MG/5 ML CUP PO SCH ×2 (09:23→21:00)
[2016-01-07] MEDS: levETIRAcetam 500 MG/5 ML UDC TUBE SCH ×2 (09:23→21:00)
[2016-01-07] MEDS: fentaNYL 50 MCG/HR PATCH TD SCH (09:24)
[2016-01-07] MEDS: SODIUM CHLORIDE 0.9% FLUSH 5 ML FLUSH IVF SCH ×2 (09:24→21:00)
[2016-01-07] MEDS: DEXT 5%-NACL 0.9% 1000 ML INJ 1,000 ML IV SCH (09:25)
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
[2016-01-07] MEDS: MORPHINE SULFATE 4 MG/ML INJ IV PUSH PRN (18:37)
[2016-01-08] VITALS (15 sets, daily range): BP systolic 98–146; BP diastolic 54–84; PULSE 76–92; RESP 16–24; TEMP 97.4–98.8; O2SAT 93–100
[2016-01-08] MEDS: MORPHINE SULFATE 4 MG/ML INJ IV PUSH PRN ×3 (01:30→21:30)
[2016-01-08] MEDS: CHLORHEXIDINE GLUCONATE 2 % 1 PACK (2 CLOTHS) TOP SCH (04:00)
[2016-01-08] MEDS: METOPROLOL TARTRATE 25 MG TAB TUBE SCH ×3 (06:00→22:00)
[2016-01-08] MEDS: ALPRAZolam 0.25 MG TAB PO SCH ×3 (06:00→22:00)
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
[2016-01-08] MEDS: CHLORHEXIDINE 0.12% (ORAL KIT) 15 ML CUP MT SCH ×2 (07:47→20:00)
[2016-01-08] MEDS: ARTIFICIAL TEARS OPTH SOLN 15 ML BTL EACH EYE SCH ×3 (07:47→17:00)
[2016-01-08] MEDS: levETIRAcetam 500 MG/5 ML UDC TUBE SCH ×2 (07:47→21:00)
[2016-01-08] MEDS: SODIUM CHLORIDE 0.9% FLUSH 5 ML FLUSH IVF SCH ×2 (07:47→21:00)
[2016-01-08] MEDS: METOCLOPRAMIDE HCL SYRUP 10 MG/10 ML UDC G-TUBE SCH ×2 (07:47→21:00)
[2016-01-08] MEDS: oxyCODONE HCL ORAL CONC 20 MG/ML SYRINGE PO PRN ×2 (07:47→18:17)
[2016-01-08] MEDS: RANITIDINE HCL SYRUP 150 MG/10 ML UDC TUBE SCH ×2 (07:47→21:00)
[2016-01-08] MEDS: SENNOSIDES SYRUP 8.8 MG/5 ML CUP PO SCH ×2 (07:47→21:00)
[2016-01-08] MEDS: BACITRACIN TOP OINT 15 GM TUBE TOP SCH ×2 (07:48→21:00)
[2016-01-08] MEDS: ENOXAPARIN SODIUM 30 MG/0.3 ML SYRINGE SQ SCH ×2 (07:49→22:00)
[2016-01-08] MEDS: DEXT 5%-NACL 0.9% 1000 ML INJ 1,000 ML IV SCH (10:59)
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
[2016-01-09] VITALS (15 sets, daily range): BP systolic 106–138; BP diastolic 61–80; PULSE 79–100; RESP 16–27; TEMP 98.4–98.7; O2SAT 92–99
[2016-01-09] MEDS: CHLORHEXIDINE GLUCONATE 2 % 1 PACK (2 CLOTHS) TOP SCH (04:00)
[2016-01-09] MEDS: MORPHINE SULFATE 4 MG/ML INJ IV PUSH PRN ×2 (05:30→19:13)
[2016-01-09] MEDS: METOPROLOL TARTRATE 25 MG TAB TUBE SCH ×3 (06:00→21:24)
[2016-01-09] MEDS: ALPRAZolam 0.25 MG TAB PO SCH ×3 (06:00→21:23)
[2016-01-09] MEDS: SODIUM CHLORIDE 0.9% FLUSH 5 ML FLUSH IVF SCH ×2 (08:30→21:24)
[2016-01-09] MEDS: METOCLOPRAMIDE HCL SYRUP 10 MG/10 ML UDC G-TUBE SCH ×2 (08:30→21:24)
[2016-01-09] MEDS: SENNOSIDES SYRUP 8.8 MG/5 ML CUP PO SCH ×2 (08:30→21:24)
[2016-01-09] MEDS: ARTIFICIAL TEARS OPTH SOLN 15 ML BTL EACH EYE SCH ×3 (08:30→16:45)
[2016-01-09] MEDS: RANITIDINE HCL SYRUP 150 MG/10 ML UDC TUBE SCH ×2 (08:30→21:23)
[2016-01-09] MEDS: CHLORHEXIDINE 0.12% (ORAL KIT) 15 ML CUP MT SCH ×2 (08:30→21:23)
[2016-01-09] MEDS: levETIRAcetam 500 MG/5 ML UDC TUBE SCH ×2 (08:30→21:24)
[2016-01-09] MEDS: BACITRACIN TOP OINT 15 GM TUBE TOP SCH ×2 (08:31→21:00)
[2016-01-09] MEDS: DEXT 5%-NACL 0.9% 1000 ML INJ 1,000 ML IV SCH ×2 (09:11→23:44)
[2016-01-09] MEDS: ENOXAPARIN SODIUM 30 MG/0.3 ML SYRINGE SQ SCH ×2 (09:11→21:24)
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
[2016-01-09] MEDS: oxyCODONE HCL ORAL CONC 20 MG/ML SYRINGE PO PRN (21:26)
[2016-01-10] VITALS (14 sets, daily range): BP systolic 92–145; BP diastolic 54–78; PULSE 70–94; RESP 16–25; TEMP 98.2–98.7; O2SAT 95–100
[2016-01-10] MEDS: CHLORHEXIDINE GLUCONATE 2 % 1 PACK (2 CLOTHS) TOP SCH ×2 (03:56→21:04)
[2016-01-10 04:29] LABS: AUTOMATED NEUTROPHIL # 5.1 TH/MM3 (1.8-7.7); BASOPHIL # 0.1 TH/MM3 (0-0.2); BASOPHIL % 0.6 % (0.0-2.0); EOSINOPHIL # 0.6 TH/MM3 (0-0.4); EOSINOPHIL % 7.5 % (0.0-4.0); HEMATOCRIT 32.3 % (39.0-51.0); HEMO FLAGS DIFF FINAL; LYMPH % 21.2 % (9.0-44.0); LYMPHOCYTE # 1.7 TH/MM3 (1.0-4.8); MEAN CELL VOLUME 97.4 FL (80.0-100.0); MEAN CORPUSCULAR HEMOGLOBIN 32.4 PG (27.0-34.0); MEAN CORPUSCULAR HGB CONC 33.2 % (32.0-36.0); MONO % 7.3 % (0.0-8.0); NEUT % 63.4 % (16.0-70.0); PLATELET COUNT 298 TH/MM3 (150-450); RED BLOOD COUNT 3.32 MIL/MM3 (4.50-5.90); RED CELL DISTRIBUTION WIDTH 14.4 % (11.6-17.2); WHITE BLOOD COUNT 8.1 TH/MM3 (4.0-11.0)
[2016-01-10 04:47] LABS: ALT (GPT) 29 U/L (12-78); ANION GAP 5 MEQ/L (5-15); AST (GOT) 26 U/L (15-37); BICARBONATE 28.6 MEQ/L (21.0-32.0); BLOOD UREA NITROGEN 32 MG/DL (7-18); CHLORIDE 106 MEQ/L (98-107); GLOMERULAR FILTRATION RATE 134 ML/MIN (>89); POTASSIUM 4.2 MEQ/L (3.5-5.1); SODIUM (NA) 140 MEQ/L (136-145)
[2016-01-10 04:49] LABS: ALKALINE PHOSPHATASE 94 U/L (45-117); TOTAL BILIRUBIN ADULT 0.4 MG/DL (0.2-1.0)
[2016-01-10] MEDS: ALPRAZolam 0.25 MG TAB PO SCH ×3 (06:07→21:02)
[2016-01-10] MEDS: METOPROLOL TARTRATE 25 MG TAB TUBE SCH ×3 (06:07→21:02)
--- NOTE | 2016-01-10 06:18 | RADRPT ---
EXAM DATE/TIME: 01/10/2016 04:59 [place] COMPARISON: CHEST SINGLE AP, January 03, 2016, 5:12. INDICATIONS : Respiratory disease, short of breath MEDICAL HISTORY : unobtainable SURGICAL HISTORY : tracheostomy ENCOUNTER: Subsequent ACUITY: 1 month PAIN SCORE: Non-responsive. LOCATION: Bilateral chest FINDINGS: There is a tracheostomy tube in place. The heart size is normal. There is increased density in the up per lungs bilaterally being more prominent the left. There is also increased density at the left base . The right base is relatively clear. There is a suspected G-tube in place. CONCLUSION: Bilateral areas of consolidation or atelectasis much worse on the left. This pattern is stable. Martinez Mireles MD on January 10, 2016 at 6:15 Board Certified Radiologist. This report was verified electronically.
[2016-01-10] MEDS: CHLORHEXIDINE 0.12% (ORAL KIT) 15 ML CUP MT SCH ×2 (08:00→20:00)
[2016-01-10] MEDS: BACITRACIN TOP OINT 15 GM TUBE TOP SCH ×2 (09:00→21:00)
[2016-01-10] MEDS: ARTIFICIAL TEARS OPTH SOLN 15 ML BTL EACH EYE SCH ×3 (09:40→17:48)
[2016-01-10] MEDS: SENNOSIDES SYRUP 8.8 MG/5 ML CUP PO SCH ×2 (09:41→21:03)
[2016-01-10] MEDS: levETIRAcetam 500 MG/5 ML UDC TUBE SCH ×2 (09:41→21:03)
[2016-01-10] MEDS: RANITIDINE HCL SYRUP 150 MG/10 ML UDC TUBE SCH ×2 (09:41→21:02)
[2016-01-10] MEDS: METOCLOPRAMIDE HCL SYRUP 10 MG/10 ML UDC G-TUBE SCH ×2 (09:41→21:02)
[2016-01-10] MEDS: MAGNESIUM HYDROXIDE SUSP 30 ML CUP PEG PRN (09:42)
[2016-01-10] MEDS: fentaNYL 50 MCG/HR PATCH TD SCH (09:43)
[2016-01-10] MEDS: REMOVE OLD PATCH TD SCH (09:43)
[2016-01-10] MEDS: SODIUM CHLORIDE 0.9% FLUSH 5 ML FLUSH IVF SCH ×2 (10:04→21:00)
[2016-01-10] MEDS: ENOXAPARIN SODIUM 30 MG/0.3 ML SYRINGE SQ SCH ×2 (10:04→21:03)
[2016-01-10] MEDS: MORPHINE SULFATE 4 MG/ML INJ IV PUSH PRN ×3 (10:09→18:19)
[2016-01-10] MEDS: SODIUM CHLORIDE 0.9% FLUSH 5 ML FLUSH IVF PRN ×2 (14:14→18:19)
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
[2016-01-10] MEDS: oxyCODONE HCL ORAL CONC 20 MG/ML SYRINGE PO PRN (21:02)
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
[2016-01-10] MEDS: HYOSCYAMINE 0.5 MG/ML AMP IVP PRN (23:14)
[2016-01-11] VITALS (14 sets, daily range): BP systolic 103–132; BP diastolic 59–72; PULSE 70–91; RESP 18–24; TEMP 98.5–99.1; O2SAT 95–100
[2016-01-11] MEDS: METOPROLOL TARTRATE 25 MG TAB TUBE SCH ×3 (05:26→21:10)
[2016-01-11] MEDS: ALPRAZolam 0.25 MG TAB PO SCH ×3 (05:26→21:10)
[2016-01-11] MEDS: CHLORHEXIDINE 0.12% (ORAL KIT) 15 ML CUP MT SCH ×2 (08:00→20:00)
[2016-01-11] MEDS: ARTIFICIAL TEARS OPTH SOLN 15 ML BTL EACH EYE SCH ×3 (09:00→17:57)
[2016-01-11] MEDS: BACITRACIN TOP OINT 15 GM TUBE TOP SCH ×2 (09:00→21:00)
[2016-01-11] MEDS: RANITIDINE HCL SYRUP 150 MG/10 ML UDC TUBE SCH ×2 (09:12→21:10)
[2016-01-11] MEDS: levETIRAcetam 500 MG/5 ML UDC TUBE SCH ×2 (09:12→21:10)
[2016-01-11] MEDS: SENNOSIDES SYRUP 8.8 MG/5 ML CUP PO SCH ×2 (09:12→21:10)
[2016-01-11] MEDS: METOCLOPRAMIDE HCL SYRUP 10 MG/10 ML UDC G-TUBE SCH ×2 (09:12→21:10)
[2016-01-11] MEDS: SODIUM CHLORIDE 0.9% FLUSH 5 ML FLUSH IVF SCH ×2 (09:13→21:00)
[2016-01-11] MEDS: ENOXAPARIN SODIUM 30 MG/0.3 ML SYRINGE SQ SCH ×2 (09:13→21:10)
[2016-01-11] MEDS: DEXT 5%-NACL 0.9% 1000 ML INJ 1,000 ML IV SCH (09:14)
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
[2016-01-11] MEDS: MORPHINE SULFATE 4 MG/ML INJ IV PUSH PRN (17:56)
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
[2016-01-11] MEDS: CHLORHEXIDINE GLUCONATE 2 % 1 PACK (2 CLOTHS) TOP SCH (21:11)
[2016-01-12] VITALS (14 sets, daily range): BP systolic 95–152; BP diastolic 54–71; PULSE 73–92; RESP 16–28; TEMP 98.2–99; O2SAT 94–100
[2016-01-12] MEDS: METOPROLOL TARTRATE 25 MG TAB TUBE SCH ×3 (05:31→21:49)
[2016-01-12] MEDS: oxyCODONE HCL ORAL CONC 20 MG/ML SYRINGE PO PRN ×3 (05:31→23:57)
[2016-01-12] MEDS: ALPRAZolam 0.25 MG TAB PO SCH ×3 (05:31→21:49)
[2016-01-12] MEDS: CHLORHEXIDINE 0.12% (ORAL KIT) 15 ML CUP MT SCH (08:00)
[2016-01-12] MEDS: levETIRAcetam 500 MG/5 ML UDC TUBE SCH ×2 (08:47→21:49)
[2016-01-12] MEDS: DEXT 5%-NACL 0.9% 1000 ML INJ 1,000 ML IV SCH (08:47)
[2016-01-12] MEDS: SODIUM CHLORIDE 0.9% FLUSH 5 ML FLUSH IVF SCH ×2 (08:47→21:50)
[2016-01-12] MEDS: BACITRACIN TOP OINT 15 GM TUBE TOP SCH (08:47)
[2016-01-12] MEDS: RANITIDINE HCL SYRUP 150 MG/10 ML UDC TUBE SCH ×2 (08:47→21:49)
[2016-01-12] MEDS: METOCLOPRAMIDE HCL SYRUP 10 MG/10 ML UDC G-TUBE SCH ×2 (08:47→21:49)
[2016-01-12] MEDS: SENNOSIDES SYRUP 8.8 MG/5 ML CUP PO SCH ×2 (08:47→21:49)
[2016-01-12] MEDS: ARTIFICIAL TEARS OPTH SOLN 15 ML BTL EACH EYE SCH ×3 (08:47→18:00)
[2016-01-12] MEDS: ENOXAPARIN SODIUM 30 MG/0.3 ML SYRINGE SQ SCH ×2 (08:48→21:49)
[2016-01-12] MEDS: HYOSCYAMINE 0.5 MG/ML AMP IVP PRN (13:37)
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
[2016-01-12] MEDS: MORPHINE SULFATE 4 MG/ML INJ IV PUSH PRN (22:15)
[2016-01-13] VITALS (8 sets, daily range): BP systolic 113–156; BP diastolic 65–81; PULSE 76–96; RESP 13–20; TEMP 98.2–98.8; O2SAT 96–100
[2016-01-13] MEDS: DEXT 5%-NACL 0.9% 1000 ML INJ 1,000 ML IV SCH ×2 (03:14→09:43)
[2016-01-13] MEDS: CHLORHEXIDINE GLUCONATE 2 % 1 PACK (2 CLOTHS) TOP SCH (04:00)
[2016-01-13] MEDS: METOPROLOL TARTRATE 25 MG TAB TUBE SCH ×3 (05:32→21:30)
[2016-01-13] MEDS: oxyCODONE HCL ORAL CONC 20 MG/ML SYRINGE PO PRN ×2 (05:32→11:08)
[2016-01-13] MEDS: ALPRAZolam 0.25 MG TAB PO SCH ×3 (05:32→21:30)
[2016-01-13] MEDS: CHLORHEXIDINE 0.12% (ORAL KIT) 15 ML CUP MT SCH ×2 (08:00→20:00)
[2016-01-13] MEDS: ARTIFICIAL TEARS OPTH SOLN 15 ML BTL EACH EYE SCH ×3 (09:00→17:40)
[2016-01-13] MEDS: REMOVE OLD PATCH TD SCH (09:00)
[2016-01-13] MEDS: BACITRACIN TOP OINT 15 GM TUBE TOP SCH ×2 (09:00→21:00)
[2016-01-13] MEDS: ENOXAPARIN SODIUM 30 MG/0.3 ML SYRINGE SQ SCH ×2 (11:06→21:28)
[2016-01-13] MEDS: levETIRAcetam 500 MG/5 ML UDC TUBE SCH ×2 (11:06→21:00)
[2016-01-13] MEDS: SENNOSIDES SYRUP 8.8 MG/5 ML CUP PO SCH ×2 (11:06→21:00)
[2016-01-13] MEDS: RANITIDINE HCL SYRUP 150 MG/10 ML UDC TUBE SCH ×2 (11:06→21:00)
[2016-01-13] MEDS: SODIUM CHLORIDE 0.9% FLUSH 5 ML FLUSH IVF SCH ×2 (11:06→21:29)
[2016-01-13] MEDS: METOCLOPRAMIDE HCL SYRUP 10 MG/10 ML UDC G-TUBE SCH ×2 (11:06→21:00)
[2016-01-13] MEDS: fentaNYL 50 MCG/HR PATCH TD SCH (11:08)
[2016-01-13] MEDS: MORPHINE SULFATE 4 MG/ML INJ IV PUSH PRN ×3 (14:12→23:11)
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
[2016-01-13] MEDS ORDERED: METOPROLOL TARTRATE 5 MG/5 ML VIAL IV PUSH ONE (22:00)
[2016-01-13] MEDS ORDERED: levETIRAcetam 500MG PREMIX INJ 100 ML IV ONE (22:00)
[2016-01-13] MEDS: HYOSCYAMINE 0.5 MG/ML AMP IVP PRN (23:28)
[2016-01-14] VITALS (8 sets, daily range): BP systolic 104–116; BP diastolic 57–74; PULSE 84–95; RESP 16–20; TEMP 97.4–99.3; O2SAT 93–97
[2016-01-14] MEDS: ALPRAZolam 0.25 MG TAB PO SCH (02:01)
[2016-01-14] MEDS: METOPROLOL TARTRATE 25 MG TAB TUBE SCH ×3 (02:02→21:22)
[2016-01-14] MEDS: CHLORHEXIDINE GLUCONATE 2 % 1 PACK (2 CLOTHS) TOP SCH (04:00)
[2016-01-14] MEDS: CHLORHEXIDINE 0.12% (ORAL KIT) 15 ML CUP MT SCH ×2 (08:00→19:54)
[2016-01-14] MEDS: SENNOSIDES SYRUP 8.8 MG/5 ML CUP PO SCH (08:18)
[2016-01-14] MEDS: levETIRAcetam 500 MG/5 ML UDC TUBE SCH ×2 (08:19→20:56)
[2016-01-14] MEDS: SODIUM CHLORIDE 0.9% FLUSH 5 ML FLUSH IVF SCH ×2 (08:20→20:56)
[2016-01-14] MEDS: BACITRACIN TOP OINT 15 GM TUBE TOP SCH ×2 (09:00→21:00)
[2016-01-14] MEDS: RANITIDINE HCL SYRUP 150 MG/10 ML UDC TUBE SCH ×2 (09:00→20:56)
[2016-01-14] MEDS: ENOXAPARIN SODIUM 30 MG/0.3 ML SYRINGE SQ SCH ×2 (09:09→20:57)
[2016-01-14] MEDS: HYOSCYAMINE 0.5 MG/ML AMP IVP PRN ×2 (09:09→20:54)
[2016-01-14] MEDS: MORPHINE SULFATE 4 MG/ML INJ IV PUSH PRN ×2 (10:50→20:55)
[2016-01-14] MEDS: ARTIFICIAL TEARS OPTH SOLN 15 ML BTL EACH EYE SCH ×3 (10:56→18:29)
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
[2016-01-14] MEDS ORDERED: LORazepam 2 MG/ML VIAL IV PUSH PRN (13:00)
[2016-01-14] MEDS: METOCLOPRAMIDE HCL SYRUP 10 MG/10 ML UDC G-TUBE SCH ×2 (13:20→20:56)
[2016-01-14] MEDS: ALPRAZolam 0.25 MG TAB G-TUBE SCH ×2 (13:20→21:07)
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
[2016-01-14] MEDS: DEXT 5%-NACL 0.9% 1000 ML INJ 1,000 ML IV SCH (18:30)
[2016-01-14] MEDS: SENNOSIDES SYRUP 8.8 MG/5 ML CUP GT SCH (20:56)
[2016-01-15] VITALS (7 sets, daily range): BP systolic 109–146; BP diastolic 59–71; PULSE 81–91; RESP 16–22; TEMP 97.7–99.8; O2SAT 93–98
[2016-01-15] MEDS: CHLORHEXIDINE GLUCONATE 2 % 1 PACK (2 CLOTHS) TOP SCH ×2 (04:00→23:15)
[2016-01-15] MEDS: METOPROLOL TARTRATE 25 MG TAB TUBE SCH ×2 (05:52→13:14)
[2016-01-15] MEDS: ALPRAZolam 0.25 MG TAB G-TUBE SCH ×3 (05:52→21:24)
[2016-01-15] MEDS: MORPHINE SULFATE 4 MG/ML INJ IV PUSH PRN ×5 (06:15→21:14)
[2016-01-15] MEDS: HYOSCYAMINE 0.5 MG/ML AMP IVP PRN ×3 (06:15→21:33)
[2016-01-15] MEDS: CHLORHEXIDINE 0.12% (ORAL KIT) 15 ML CUP MT SCH ×2 (08:00→20:00)
[2016-01-15] MEDS: BACITRACIN TOP OINT 15 GM TUBE TOP SCH ×2 (09:00→21:00)
[2016-01-15] MEDS: ONDANSETRON HCL 4 MG/2 ML VIAL IV PRN (09:11)
[2016-01-15] MEDS: ENOXAPARIN SODIUM 30 MG/0.3 ML SYRINGE SQ SCH ×2 (10:12→21:26)
[2016-01-15] MEDS: ARTIFICIAL TEARS OPTH SOLN 15 ML BTL EACH EYE SCH ×3 (10:13→17:19)
[2016-01-15] MEDS: SODIUM CHLORIDE 0.9% FLUSH 5 ML FLUSH IVF SCH ×2 (10:13→21:27)
[2016-01-15] MEDS: RANITIDINE HCL SYRUP 150 MG/10 ML UDC TUBE SCH (10:14)
[2016-01-15] MEDS: METOCLOPRAMIDE HCL SYRUP 10 MG/10 ML UDC G-TUBE SCH ×2 (10:15→21:25)
[2016-01-15] MEDS: SENNOSIDES SYRUP 8.8 MG/5 ML CUP GT SCH ×2 (10:15→21:24)
[2016-01-15] MEDS: levETIRAcetam 500 MG/5 ML UDC TUBE SCH ×2 (10:15→21:25)
[2016-01-15] MEDS: D5-1/2 NS + KCL 20 MEQ INJ 1,000 ML IV SCH (15:16)
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
[2016-01-15] MEDS ORDERED: MAGNESIUM HYDROXIDE SUSP 30 ML CUP G-TUBE PRN (15:30)
[2016-01-15] MEDS: RESP: ALBUTEROL 0.63 MG/3 ML NEB (SCH) NEB (16:00)
--- NOTE | 2016-01-15 16:36 | RADRPT ---
EXAM DATE/TIME: 01/15/2016 15:41 [facility] COMPARISON: Prior study 01/10/2016. INDICATIONS : Shortness of breath. MEDICAL HISTORY : None. SURGICAL HISTORY : Tracheostomy ENCOUNTER: Subsequent ACUITY: 1 month PAIN SCORE: Non-responsive. LOCATION: Bilateral chest FINDINGS: A single view of the chest demonstrates the tracheostomy tube is in good position. There is a left b ronchial stent. There is diffuse interstitial lung disease throughout the lungs, left greater than r ight. There is no pneumothorax. There is no significant pleural effusion. CONCLUSION: Diffuse interstitial lung disease, left greater than right. No significant pleural effusion. No int erval change. Walker Durbin MD on January 15, 2016 at 16:29 Board Certified Radiologist. This report was verified electronically.
[2016-01-15] MEDS: RANITIDINE HCL SYRUP 150 MG/10 ML UDC G-TUBE SCH (21:25)
[2016-01-15] MEDS: METOPROLOL TARTRATE 25 MG TAB G-TUBE SCH (21:26)
[2016-01-16] VITALS (13 sets, daily range): BP systolic 102–140; BP diastolic 55–84; PULSE 77–102; RESP 15–20; TEMP 97.7–99.7; O2SAT 91–98
[2016-01-16] MEDS: D5-1/2 NS + KCL 20 MEQ INJ 1,000 ML IV SCH ×4 (02:49→23:57)
[2016-01-16] MEDS: SODIUM CHLORIDE 0.9% FLUSH 5 ML FLUSH IVF PRN (04:52)
[2016-01-16] MEDS: MORPHINE SULFATE 4 MG/ML INJ IV PUSH PRN ×4 (04:52→22:40)
[2016-01-16] MEDS: METOPROLOL TARTRATE 25 MG TAB G-TUBE SCH ×3 (05:20→22:27)
[2016-01-16] MEDS: ALPRAZolam 0.25 MG TAB G-TUBE SCH ×3 (05:20→22:27)
[2016-01-16 06:31] LABS: BASOPHIL % 0.6 % (0.0-2.0); EOSINOPHIL # 0.4 TH/MM3 (0-0.4); EOSINOPHIL % 6.7 % (0.0-4.0); HEMATOCRIT 28.4 % (39.0-51.0); HEMO FLAGS DIFF FINAL; LYMPH % 27.6 % (9.0-44.0); LYMPHOCYTE # 1.5 TH/MM3 (1.0-4.8); MEAN CELL VOLUME 95.4 FL (80.0-100.0); MEAN CORPUSCULAR HEMOGLOBIN 31.7 PG (27.0-34.0); MEAN CORPUSCULAR HGB CONC 33.2 % (32.0-36.0); MONO % 11.6 % (0.0-8.0); NEUT % 53.5 % (16.0-70.0); PLATELET COUNT 321 TH/MM3 (150-450); RED BLOOD COUNT 2.98 MIL/MM3 (4.50-5.90); RED CELL DISTRIBUTION WIDTH 14.3 % (11.6-17.2); WHITE BLOOD COUNT 5.6 TH/MM3 (4.0-11.0)
[2016-01-16 06:33] LABS: ALT (GPT) 24 U/L (12-78); ANION GAP 6 MEQ/L (5-15); AST (GOT) 17 U/L (15-37); BLOOD UREA NITROGEN 27 MG/DL (7-18); CHLORIDE 102 MEQ/L (98-107); GLOMERULAR FILTRATION RATE 110 ML/MIN (>89); MAGNESIUM 1.9 MG/DL (1.5-2.5); POTASSIUM 3.9 MEQ/L (3.5-5.1); SODIUM (NA) 139 MEQ/L (136-145)
[2016-01-16 06:35] LABS: ALKALINE PHOSPHATASE 94 U/L (45-117); TOTAL BILIRUBIN ADULT 0.6 MG/DL (0.2-1.0)
[2016-01-16] MEDS: ENOXAPARIN SODIUM 30 MG/0.3 ML SYRINGE SQ SCH ×2 (07:02→22:26)
[2016-01-16] MEDS: BACITRACIN TOP OINT 15 GM TUBE TOP SCH ×2 (07:58→21:00)
[2016-01-16] MEDS: RESP: ALBUTEROL 0.63 MG/3 ML NEB (SCH) NEB ×5 (08:00→20:16)
[2016-01-16] MEDS: CHLORHEXIDINE 0.12% (ORAL KIT) 15 ML CUP MT SCH ×2 (08:00→20:00)
[2016-01-16] MEDS: levETIRAcetam 500 MG/5 ML UDC TUBE SCH ×2 (08:57→22:27)
[2016-01-16] MEDS: fentaNYL 50 MCG/HR PATCH TD SCH (08:59)
[2016-01-16] MEDS: ARTIFICIAL TEARS OPTH SOLN 15 ML BTL EACH EYE SCH ×3 (09:00→18:29)
[2016-01-16] MEDS: SODIUM CHLORIDE 0.9% FLUSH 5 ML FLUSH IVF SCH ×2 (09:05→22:28)
[2016-01-16] MEDS: REMOVE OLD PATCH TD SCH (09:05)
[2016-01-16] MEDS: HYOSCYAMINE 0.5 MG/ML AMP IVP PRN (10:43)
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
[2016-01-16] MEDS: METOCLOPRAMIDE HCL SYRUP 10 MG/10 ML UDC G-TUBE SCH ×2 (14:08→22:27)
[2016-01-16] MEDS: RANITIDINE HCL SYRUP 150 MG/10 ML UDC G-TUBE SCH ×2 (14:09→22:27)
[2016-01-16] MEDS: SENNOSIDES SYRUP 8.8 MG/5 ML CUP GT SCH ×2 (14:09→22:27)
[2016-01-16] MEDS ORDERED: MORPHINE SULFATE 8 MG/ML INJ ONE (16:41)
[2016-01-16] MEDS ORDERED: MIDAZOLAM HCL 2 MG/2 ML VIAL ONE (16:59)
[2016-01-16] MEDS ORDERED: IOHEXOL 350 MG/ML 50 ML BTL (for RAD DIAG) G-TUBE ONE (17:20)
--- NOTE | 2016-01-16 17:20 | PD.RAD ---
Post Procedure Progress Note Pre Procedure Diagnosis: (1) Gastrostomy tube dysfunction Post Procedure Diagnosis: (1) Gastrostomy tube dysfunction Procedure Date: Jan 16, 2016 Supervising Radiologist: Ruiz Lloyd Anesthesia: Local, Conscious Sedation Plan of Activity Patient to Unit: ROPU Patient Condition: Fair Additional Comments: G/J tube exchanged for a new 22French transgastric J tube See PACS Report for procedural detail/treatment Ruiz Lloyd MD Jan 16, 2016 17:20
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
[2016-01-16] MEDS: CHLORHEXIDINE GLUCONATE 2 % 1 PACK (2 CLOTHS) TOP SCH (22:28)
[2016-01-17] VITALS (8 sets, daily range): BP systolic 114–132; BP diastolic 61–84; PULSE 83–106; RESP 16–20; TEMP 96.2–100.7; O2SAT 93–98
[2016-01-17] MEDS: MORPHINE SULFATE 4 MG/ML INJ IV PUSH PRN (02:36)
[2016-01-17] MEDS: SODIUM CHLORIDE 0.9% FLUSH 5 ML FLUSH IVF PRN (02:36)
[2016-01-17] MEDS: METOPROLOL TARTRATE 25 MG TAB G-TUBE SCH ×3 (06:22→21:27)
[2016-01-17] MEDS: ALPRAZolam 0.25 MG TAB G-TUBE SCH ×3 (06:22→21:27)
[2016-01-17] MEDS: RESP: ALBUTEROL 0.63 MG/3 ML NEB (SCH) NEB ×4 (08:25→20:01)
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
[2016-01-17] MEDS: SENNOSIDES SYRUP 8.8 MG/5 ML CUP GT SCH ×2 (09:54→21:27)
[2016-01-17] MEDS: levETIRAcetam 500 MG/5 ML UDC TUBE SCH ×2 (09:54→21:27)
[2016-01-17] MEDS: SODIUM CHLORIDE 0.9% FLUSH 5 ML FLUSH IVF SCH ×2 (09:55→21:28)
[2016-01-17] MEDS: RANITIDINE HCL SYRUP 150 MG/10 ML UDC G-TUBE SCH ×2 (09:55→21:27)
[2016-01-17] MEDS: METOCLOPRAMIDE HCL SYRUP 10 MG/10 ML UDC G-TUBE SCH ×2 (09:55→21:27)
[2016-01-17] MEDS: oxyCODONE HCL ORAL CONC 20 MG/ML SYRINGE G-TUBE PRN ×2 (09:55→21:27)
[2016-01-17] MEDS ORDERED: SOD PHOSPHATE/SOD BIPHOSPHATE (ADULT) ENEMA 133ML PR PRN (10:00)
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
[2016-01-17] MEDS: ONDANSETRON HCL 4 MG/2 ML VIAL IV PRN (21:22)
[2016-01-17] MEDS ORDERED: ENOXAPARIN SODIUM 30 MG/0.3 ML SYRINGE SQ SCH (22:00)
[2016-01-17] MEDS: ENOXAPARIN SODIUM 40 MG/0.4 ML SYRINGE SQ SCH (23:00)
[2016-01-18] VITALS (10 sets, daily range): BP systolic 94–134; BP diastolic 56–76; PULSE 64–110; RESP 16–20; TEMP 97.4–102.5; O2SAT 92–97
[2016-01-18] MEDS: oxyCODONE HCL ORAL CONC 20 MG/ML SYRINGE G-TUBE PRN ×5 (02:10→20:33)
[2016-01-18] MEDS: METOPROLOL TARTRATE 25 MG TAB G-TUBE SCH ×3 (06:22→20:32)
[2016-01-18] MEDS: ALPRAZolam 0.25 MG TAB G-TUBE SCH ×3 (06:22→20:32)
[2016-01-18] MEDS: RESP: ALBUTEROL 0.63 MG/3 ML NEB (SCH) NEB ×4 (07:14→19:41)
[2016-01-18] MEDS ORDERED: OXYC1CON3 G-TUBE (09:24)
[2016-01-18] MEDS ORDERED: FENT50DI TD (09:24)
[2016-01-18] MEDS ORDERED: ALPR.25 G-TUBE (09:24)
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
[2016-01-18] MEDS: RANITIDINE HCL SYRUP 150 MG/10 ML UDC G-TUBE SCH ×2 (10:50→20:32)
[2016-01-18] MEDS: SENNOSIDES SYRUP 8.8 MG/5 ML CUP GT SCH ×2 (10:51→20:32)
[2016-01-18] MEDS: levETIRAcetam 500 MG/5 ML UDC TUBE SCH ×2 (10:51→20:32)
[2016-01-18] MEDS: METOCLOPRAMIDE HCL SYRUP 10 MG/10 ML UDC G-TUBE SCH ×2 (10:51→20:32)
[2016-01-18] MEDS: SODIUM CHLORIDE 0.9% FLUSH 5 ML FLUSH IVF SCH ×2 (10:52→20:43)
[2016-01-18] MEDS: ONDANSETRON HCL 4 MG/2 ML VIAL IV PRN (18:22)
[2016-01-18] MEDS: ENOXAPARIN SODIUM 40 MG/0.4 ML SYRINGE SQ SCH (20:32)
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
[2016-01-18] MEDS: HYOSCYAMINE SOLN 0.125 MG/ML 15 ML BTL SL PRN (20:47)
[2016-01-18] MEDS: ACETAMINOPHEN 650 MG/20.3 ML UDC J-TUBE PRN (21:49)
[2016-01-19] VITALS (8 sets, daily range): BP systolic 107–133; BP diastolic 57–68; PULSE 92–107; RESP 16–32; TEMP 97.1–100.3; O2SAT 93–96
[2016-01-19] MEDS: RESP: ALBUTEROL 2.5 MG/IPRATROPIUM 0.5 MG NEB (PRN) INH ×2 (00:54→04:59)
[2016-01-19] MEDS: METOPROLOL TARTRATE 25 MG TAB G-TUBE SCH ×3 (06:02→21:05)
[2016-01-19] MEDS: ALPRAZolam 0.25 MG TAB G-TUBE SCH ×3 (06:02→21:05)
[2016-01-19] MEDS: HYOSCYAMINE SOLN 0.125 MG/ML 15 ML BTL SL PRN (06:06)
[2016-01-19] MEDS: RESP: ALBUTEROL 0.63 MG/3 ML NEB (SCH) NEB ×4 (07:50→19:16)
[2016-01-19] MEDS: REMOVE OLD PATCH TD SCH (09:00)
[2016-01-19] MEDS: SENNOSIDES SYRUP 8.8 MG/5 ML CUP GT SCH ×2 (09:00→20:51)
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
[2016-01-19] MEDS: METOCLOPRAMIDE HCL SYRUP 10 MG/10 ML UDC G-TUBE SCH ×2 (10:47→21:04)
[2016-01-19] MEDS: RANITIDINE HCL SYRUP 150 MG/10 ML UDC G-TUBE SCH ×2 (10:47→21:03)
[2016-01-19] MEDS: levETIRAcetam 500 MG/5 ML UDC TUBE SCH ×2 (10:47→21:03)
[2016-01-19] MEDS: SODIUM CHLORIDE 0.9% FLUSH 5 ML FLUSH IVF SCH ×2 (10:48→21:00)
[2016-01-19] MEDS: fentaNYL 50 MCG/HR PATCH TD SCH (10:48)
[2016-01-19] MEDS: oxyCODONE HCL ORAL CONC 20 MG/ML SYRINGE G-TUBE PRN ×2 (10:49→21:05)
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
[2016-01-19] MEDS: ENOXAPARIN SODIUM 40 MG/0.4 ML SYRINGE SQ SCH (21:05)
[2016-01-20] VITALS (8 sets, daily range): BP systolic 109–125; BP diastolic 67–78; PULSE 100–112; RESP 18–22; TEMP 96.7–101; O2SAT 93–97
[2016-01-20] MEDS ORDERED: MORPHINE SULFATE 4 MG/ML INJ IV PUSH ONE (00:15)
[2016-01-20] MEDS: HYOSCYAMINE SOLN 0.125 MG/ML 15 ML BTL SL PRN ×2 (00:38→20:51)
[2016-01-20] MEDS: ACETAMINOPHEN 650 MG/20.3 ML UDC J-TUBE PRN (00:38)
[2016-01-20] MEDS: ONDANSETRON HCL 4 MG/2 ML VIAL IV PRN ×4 (00:38→23:15)
--- NOTE | 2016-01-20 06:34 | RADHPO ---
EXAM DATE/TIME: 01/20/2016 06:11 [facility] COMPARISON: CHEST SINGLE AP, January 15, 2016, 15:41. INDICATIONS : Shortness of breath. MEDICAL HISTORY : None. SURGICAL HISTORY : Tracheostomy ENCOUNTER: Subsequent ACUITY: 1 month PAIN SCORE: 1/10 LOCATION: Bilateral chest FINDINGS: A single view of the chest demonstrates unchanged appearance of the tracheostomy tube. Volume loss in the left and left-sided bronchial stent again seen. Diffuse interstitial densities greater in the le ft lung are unchanged. The cardiomediastinal contours are unremarkable. Osseous structures are intac t. CONCLUSION: Diffuse interstitial densities, greater on the left with associated volume loss is unchanged. José Miguel Kramer MD on January 20, 2016 at 6:30 Board Certified Radiologist. This report was verified electronically.
[2016-01-20] MEDS: RESP: ALBUTEROL 0.63 MG/3 ML NEB (SCH) NEB ×4 (07:41→20:35)
[2016-01-20] MEDS: MORPHINE SULFATE 4 MG/ML INJ IV PUSH PRN ×4 (08:53→20:33)
[2016-01-20] MEDS: METOCLOPRAMIDE HCL SYRUP 10 MG/10 ML UDC G-TUBE SCH ×2 (08:59→20:32)
[2016-01-20] MEDS: RANITIDINE HCL SYRUP 150 MG/10 ML UDC G-TUBE SCH ×2 (08:59→20:32)
[2016-01-20] MEDS: levETIRAcetam 500 MG/5 ML UDC TUBE SCH ×2 (09:00→20:32)
[2016-01-20] MEDS: SODIUM CHLORIDE 0.9% FLUSH 5 ML FLUSH IVF SCH ×2 (09:00→20:33)
[2016-01-20] MEDS: SENNOSIDES SYRUP 8.8 MG/5 ML CUP GT SCH ×2 (09:00→20:32)
--- NOTE | 2016-01-20 10:52 | RADHPO ---
EXAM DATE/TIME: 01/20/2016 10:34 [facility] COMPARISON: ABDOMEN KUB ONLY, December 18, 2015, 4:39. INDICATIONS: Nausea, vomiting, constipation. MEDICAL HISTORY: Hypertension. Gastroesophageal reflux disease. SURGICAL HISTORY: Gastric tube. Cardiac ablation, Donte fundoplication. ENCOUNTER: Subsequent ACUITY: 2 months PAIN SCORE: 6/10 LOCATION: Abdomen FINDINGS: Radiographic contrast is present in the colon. There is no gaseous distention. Nasogastric is evide nt. CONCLUSION: Minimal radiographic contrast in the colon, predominantly sigmoid, otherwise negative. Chi Lloyd MD FACR on January 20, 2016 at 10:44 Board Certified Radiologist. This report was verified electronically.
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
[2016-01-20] MEDS: LEVOFLOXACIN 750 MG PREMIX INJ 150 ML IV SCH (12:47)
[2016-01-20 13:06] LABS: AUTOMATED NEUTROPHIL # 8.4 TH/MM3 (1.8-7.7); BASOPHIL % 0.1 % (0.0-2.0); EOSINOPHIL % 0.3 % (0.0-4.0); HEMATOCRIT 31.4 % (39.0-51.0); LYMPH % 10.8 % (9.0-44.0); LYMPHOCYTE # 1.1 TH/MM3 (1.0-4.8); MEAN CELL VOLUME 95.2 FL (80.0-100.0); MEAN CORPUSCULAR HEMOGLOBIN 31.3 PG (27.0-34.0); MEAN CORPUSCULAR HGB CONC 32.9 % (32.0-36.0); MONO % 3.7 % (0.0-8.0); NEUT % 85.1 % (16.0-70.0); PLATELET COUNT 406 TH/MM3 (150-450); RED CELL DISTRIBUTION WIDTH 13.8 % (11.6-17.2); WHITE BLOOD COUNT 9.9 TH/MM3 (4.0-11.0)
[2016-01-20 13:08] LABS: HEMO FLAGS DIFF FINAL
[2016-01-20 13:15] LABS: POTASSIUM 4.7 MEQ/L (3.5-5.1)
[2016-01-20] MEDS: ALPRAZolam 0.25 MG TAB G-TUBE SCH ×2 (14:00→20:33)
[2016-01-20] MEDS: METOPROLOL TARTRATE 25 MG TAB G-TUBE SCH ×2 (14:00→20:32)
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
[2016-01-20] MEDS: ENOXAPARIN SODIUM 40 MG/0.4 ML SYRINGE SQ SCH (20:33)
[2016-01-21] VITALS: BP 105/69; PULSE 90; RESP 20; TEMP 98.7; O2SAT 95
[2016-01-21 06:29] LABS: AUTOMATED NEUTROPHIL # 4.3 TH/MM3 (1.8-7.7); BASOPHIL % 0.3 % (0.0-2.0); EOSINOPHIL # 0.1 TH/MM3 (0-0.4); EOSINOPHIL % 1.9 % (0.0-4.0); HEMATOCRIT 28.1 % (39.0-51.0); HEMO FLAGS DIFF FINAL; LYMPH % 23.6 % (9.0-44.0); LYMPHOCYTE # 1.5 TH/MM3 (1.0-4.8); MEAN CELL VOLUME 95.2 FL (80.0-100.0); MEAN CORPUSCULAR HEMOGLOBIN 31.2 PG (27.0-34.0); MEAN CORPUSCULAR HGB CONC 32.8 % (32.0-36.0); MONO % 7.5 % (0.0-8.0); NEUT % 66.7 % (16.0-70.0); PLATELET COUNT 396 TH/MM3 (150-450); RED BLOOD COUNT 2.95 MIL/MM3 (4.50-5.90); RED CELL DISTRIBUTION WIDTH 13.5 % (11.6-17.2); WHITE BLOOD COUNT 6.4 TH/MM3 (4.0-11.0)
[2016-01-21] MEDS: METOPROLOL TARTRATE 25 MG TAB G-TUBE SCH ×3 (06:36→21:16)
[2016-01-21] MEDS: ALPRAZolam 0.25 MG TAB G-TUBE SCH ×3 (06:36→21:16)
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
[2016-01-21 06:40] LABS: POTASSIUM 4.4 MEQ/L (3.5-5.1)
[2016-01-21 06:45] LABS: BICARBONATE 29.1 MEQ/L (21.0-32.0); MAGNESIUM 2.3 MG/DL (1.5-2.5)
[2016-01-21] MEDS: ONDANSETRON HCL 4 MG/2 ML VIAL IV PRN ×3 (06:47→21:17)
[2016-01-21] MEDS: MORPHINE SULFATE 4 MG/ML INJ IV PUSH PRN ×5 (06:48→21:17)
[2016-01-21 08:00] VITALS: BP 116/78; PULSE 94; RESP 20; TEMP 96; O2SAT 91
[2016-01-21] MEDS: RESP: ALBUTEROL 0.63 MG/3 ML NEB (SCH) NEB ×4 (08:39→20:04)
[2016-01-21 08:51] VITALS: O2SAT 95
[2016-01-21] MEDS: SENNOSIDES SYRUP 8.8 MG/5 ML CUP GT SCH ×2 (11:03→21:13)
[2016-01-21] MEDS: RANITIDINE HCL SYRUP 150 MG/10 ML UDC G-TUBE SCH ×2 (11:03→21:13)
[2016-01-21] MEDS: levETIRAcetam 500 MG/5 ML UDC TUBE SCH ×2 (11:04→21:13)
[2016-01-21] MEDS: HYOSCYAMINE SOLN 0.125 MG/ML 15 ML BTL SL PRN (11:04)
[2016-01-21] MEDS: SODIUM CHLORIDE 0.9% FLUSH 5 ML FLUSH IVF SCH ×2 (11:04→21:13)
[2016-01-21] MEDS: METOCLOPRAMIDE HCL SYRUP 10 MG/10 ML UDC G-TUBE SCH ×2 (11:04→21:13)
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
[2016-01-21] MEDS: LEVOFLOXACIN 750 MG PREMIX INJ 150 ML IV SCH (14:28)
[2016-01-21 20:07] VITALS: O2SAT 95
[2016-01-21] MEDS: ENOXAPARIN SODIUM 40 MG/0.4 ML SYRINGE SQ SCH (21:16)
[2016-01-21 21:29] VITALS: BP 113/73; PULSE 89; RESP 22; TEMP 96.6; O2SAT 99
[2016-01-22] VITALS (7 sets, daily range): BP systolic 104–116; BP diastolic 64–78; PULSE 78–89; RESP 18–20; TEMP 96.2–98.2; O2SAT 93–100
[2016-01-22] MEDS: MORPHINE SULFATE 4 MG/ML INJ IV PUSH PRN ×7 (00:49→21:52)
[2016-01-22] MEDS: ONDANSETRON HCL 4 MG/2 ML VIAL IV PRN ×4 (03:17→21:49)
[2016-01-22] MEDS: ALPRAZolam 0.25 MG TAB G-TUBE SCH ×3 (05:55→22:14)
[2016-01-22] MEDS: METOPROLOL TARTRATE 25 MG TAB G-TUBE SCH ×3 (05:55→22:14)
[2016-01-22] MEDS: RESP: ALBUTEROL 0.63 MG/3 ML NEB (SCH) NEB ×4 (07:34→20:11)
[2016-01-22] MEDS: RANITIDINE HCL SYRUP 150 MG/10 ML UDC G-TUBE SCH ×2 (07:49→22:15)
[2016-01-22] MEDS: SENNOSIDES SYRUP 8.8 MG/5 ML CUP GT SCH ×2 (07:49→22:15)
[2016-01-22] MEDS: levETIRAcetam 500 MG/5 ML UDC TUBE SCH ×2 (07:50→22:14)
[2016-01-22] MEDS: METOCLOPRAMIDE HCL SYRUP 10 MG/10 ML UDC G-TUBE SCH ×2 (07:50→22:14)
[2016-01-22] MEDS: fentaNYL 50 MCG/HR PATCH TD SCH (07:51)
[2016-01-22] MEDS: REMOVE OLD PATCH TD SCH (07:51)
[2016-01-22] MEDS: SODIUM CHLORIDE 0.9% FLUSH 5 ML FLUSH IVF SCH ×2 (07:51→21:49)
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
--- NOTE | 2016-01-22 11:26 | RADHPO ---
EXAM DATE/TIME: 01/22/2016 11:05 [facility] COMPARISON: CHEST SINGLE AP, January 15, 2016, 15:41. CHEST SINGLE AP, January 20, 2016, 6:11. INDICATIONS : Cough, chest pain MEDICAL HISTORY : None. SURGICAL HISTORY : Tracheotomy ENCOUNTER: Subsequent ACUITY: 1 week PAIN SCORE: 10/10 LOCATION: Bilateral chest FINDINGS: Portable AP view of the chest demonstrates a normal-sized cardiac silhouette. There is some type of a stent overlying the mediastinum. Tracheostomy remains present. There is leftward shift of the medias tinum. There are diffuse interstitial opacities bilaterally with atelectasis versus consolidation at the left lung base. There is stable pleural based opacity superiorly on the left. No pneumothorax or pleural effusion is appreciated. CONCLUSION: Stable chest x-ray with left lung volume loss and diffuse interstitial opacities bilaterally. There i s atelectasis versus consolidation in the left lung base. Martinez Mcguire MD on January 22, 2016 at 11:22 Board Certified Radiologist. This report was verified electronically.
[2016-01-22] MEDS: LEVOFLOXACIN 750 MG PREMIX INJ 150 ML IV SCH ×2 (12:00→14:38)
[2016-01-22] MEDS: HYOSCYAMINE SOLN 0.125 MG/ML 15 ML BTL SL PRN ×2 (14:40→22:17)
[2016-01-22] MEDS: ENOXAPARIN SODIUM 40 MG/0.4 ML SYRINGE SQ SCH (22:14)
[2016-01-23] VITALS (8 sets, daily range): BP systolic 108–121; BP diastolic 68–79; PULSE 78–96; RESP 20–22; TEMP 96.8–97.6; O2SAT 92–98
[2016-01-23] MEDS: ONDANSETRON HCL 4 MG/2 ML VIAL IV PRN ×3 (03:30→15:23)
[2016-01-23] MEDS: MORPHINE SULFATE 4 MG/ML INJ IV PUSH PRN ×4 (03:31→19:32)
[2016-01-23] MEDS: METOPROLOL TARTRATE 25 MG TAB G-TUBE SCH ×3 (06:33→21:49)
[2016-01-23] MEDS: ALPRAZolam 0.25 MG TAB G-TUBE SCH ×3 (06:33→21:49)
[2016-01-23] MEDS: HYOSCYAMINE SOLN 0.125 MG/ML 15 ML BTL SL PRN (06:42)
[2016-01-23] MEDS: SODIUM CHLORIDE 0.9% FLUSH 5 ML FLUSH IVF PRN (06:54)
[2016-01-23] MEDS: SENNOSIDES SYRUP 8.8 MG/5 ML CUP GT SCH ×2 (08:38→21:49)
[2016-01-23] MEDS: levETIRAcetam 500 MG/5 ML UDC TUBE SCH ×2 (08:38→21:49)
[2016-01-23] MEDS: METOCLOPRAMIDE HCL SYRUP 10 MG/10 ML UDC G-TUBE SCH ×2 (08:38→21:49)
[2016-01-23] MEDS: RANITIDINE HCL SYRUP 150 MG/10 ML UDC G-TUBE SCH ×2 (08:38→21:48)
[2016-01-23] MEDS: SODIUM CHLORIDE 0.9% FLUSH 5 ML FLUSH IVF SCH ×2 (08:38→21:00)
[2016-01-23] MEDS: RESP: ALBUTEROL 0.63 MG/3 ML NEB (SCH) NEB ×2 (09:01→11:36)
[2016-01-23] MEDS: oxyCODONE HCL ORAL CONC 20 MG/ML SYRINGE G-TUBE PRN (12:11)
[2016-01-23] MEDS: ENOXAPARIN SODIUM 40 MG/0.4 ML SYRINGE SQ SCH (21:49)
[2016-01-24] VITALS (7 sets, daily range): BP systolic 85–118; BP diastolic 61–86; PULSE 85–98; RESP 18–20; TEMP 97.6–98.1; O2SAT 92–98
[2016-01-24] MEDS: MORPHINE SULFATE 4 MG/ML INJ IV PUSH PRN ×7 (00:46→23:03)
[2016-01-24] MEDS: METOPROLOL TARTRATE 25 MG TAB G-TUBE SCH ×4 (05:51→21:40)
[2016-01-24] MEDS: ALPRAZolam 0.25 MG TAB G-TUBE SCH ×3 (06:21→21:39)
[2016-01-24] MEDS: SENNOSIDES SYRUP 8.8 MG/5 ML CUP GT SCH ×3 (09:00→21:38)
[2016-01-24] MEDS: ONDANSETRON HCL 4 MG/2 ML VIAL IV PRN ×3 (10:36→23:03)
[2016-01-24] MEDS: levETIRAcetam 500 MG/5 ML UDC TUBE SCH ×2 (10:37→21:38)
[2016-01-24] MEDS: SODIUM CHLORIDE 0.9% FLUSH 5 ML FLUSH IVF SCH ×2 (10:37→19:57)
[2016-01-24] MEDS: METOCLOPRAMIDE HCL SYRUP 10 MG/10 ML UDC G-TUBE SCH ×2 (10:37→21:38)
[2016-01-24] MEDS: RANITIDINE HCL SYRUP 150 MG/10 ML UDC G-TUBE SCH ×2 (10:37→21:38)
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
[2016-01-24] MEDS: LEVOFLOXACIN 750 MG PREMIX INJ 150 ML IV SCH (13:10)
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
[2016-01-24] MEDS: SODIUM CHLORIDE 0.9% FLUSH 5 ML FLUSH IVF PRN ×2 (21:38→23:03)
[2016-01-24] MEDS: ENOXAPARIN SODIUM 40 MG/0.4 ML SYRINGE SQ SCH (21:39)
[2016-01-24] MEDS: HYOSCYAMINE SOLN 0.125 MG/ML 15 ML BTL SL PRN (21:43)
[2016-01-25] VITALS (7 sets, daily range): BP systolic 105–127; BP diastolic 70–78; PULSE 84–102; RESP 13–22; TEMP 96.7–98.1; O2SAT 94–97
[2016-01-25] MEDS: MORPHINE SULFATE 4 MG/ML INJ IV PUSH PRN ×7 (02:09→23:56)
[2016-01-25] MEDS: SODIUM CHLORIDE 0.9% FLUSH 5 ML FLUSH IVF PRN ×4 (02:09→23:56)
[2016-01-25] MEDS: ONDANSETRON HCL 4 MG/2 ML VIAL IV PRN ×4 (05:07→23:55)
[2016-01-25] MEDS: ALPRAZolam 0.25 MG TAB G-TUBE SCH ×3 (05:46→21:05)
[2016-01-25] MEDS: METOPROLOL TARTRATE 25 MG TAB G-TUBE SCH ×4 (05:46→21:05)
[2016-01-25] MEDS: levETIRAcetam 500 MG/5 ML UDC TUBE SCH ×2 (08:38→20:50)
[2016-01-25] MEDS: METOCLOPRAMIDE HCL SYRUP 10 MG/10 ML UDC G-TUBE SCH ×2 (08:38→20:50)
[2016-01-25] MEDS: RANITIDINE HCL SYRUP 150 MG/10 ML UDC G-TUBE SCH ×2 (08:38→20:50)
[2016-01-25] MEDS: REMOVE OLD PATCH TD SCH (08:39)
[2016-01-25] MEDS: fentaNYL 50 MCG/HR PATCH TD SCH (08:39)
[2016-01-25] MEDS: SENNOSIDES SYRUP 8.8 MG/5 ML CUP GT SCH ×3 (08:52→20:52)
[2016-01-25] MEDS: SODIUM CHLORIDE 0.9% FLUSH 5 ML FLUSH IVF SCH ×2 (09:00→20:51)
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
[2016-01-25] MEDS: LEVOFLOXACIN 750 MG PREMIX INJ 150 ML IV SCH (11:38)
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
[2016-01-25] MEDS: RESP: ALBUTEROL 2.5 MG/IPRATROPIUM 0.5 MG NEB (PRN) INH (19:47)
[2016-01-25] MEDS: ENOXAPARIN SODIUM 40 MG/0.4 ML SYRINGE SQ SCH (21:06)
[2016-01-26] MEDS: MORPHINE SULFATE 4 MG/ML INJ IV PUSH PRN ×5 (02:59→22:07)
[2016-01-26] MEDS: SODIUM CHLORIDE 0.9% FLUSH 5 ML FLUSH IVF PRN ×2 (02:59→06:07)
[2016-01-26 04:00] VITALS: BP 102/72; PULSE 90; RESP 15; TEMP 98.2; O2SAT 94
[2016-01-26] MEDS: METOPROLOL TARTRATE 25 MG TAB G-TUBE SCH ×2 (06:00→20:24)
[2016-01-26] MEDS: ONDANSETRON HCL 4 MG/2 ML VIAL IV PRN ×4 (06:07→23:55)
[2016-01-26] MEDS: ALPRAZolam 0.25 MG TAB G-TUBE SCH ×3 (06:08→20:27)
[2016-01-26] MEDS: HYOSCYAMINE SOLN 0.125 MG/ML 15 ML BTL SL PRN (06:14)
[2016-01-26 08:00] VITALS: BP 101/66; PULSE 91; RESP 18; TEMP 96.8; O2SAT 94
[2016-01-26] MEDS: levETIRAcetam 500 MG/5 ML UDC TUBE SCH ×2 (08:36→20:26)
[2016-01-26] MEDS: SENNOSIDES SYRUP 8.8 MG/5 ML CUP GT SCH ×2 (08:36→20:26)
[2016-01-26] MEDS: RANITIDINE HCL SYRUP 150 MG/10 ML UDC G-TUBE SCH ×2 (08:36→20:26)
[2016-01-26] MEDS: METOCLOPRAMIDE HCL SYRUP 10 MG/10 ML UDC G-TUBE SCH ×2 (08:36→20:26)
[2016-01-26] MEDS: SODIUM CHLORIDE 0.9% FLUSH 5 ML FLUSH IVF SCH ×2 (08:42→20:27)
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
[2016-01-26] MEDS: ACETAMINOPHEN 325MG/HYDROcodone 7.5MG/15ML UDC PO PRN ×3 (10:59→23:19)
[2016-01-26 12:00] VITALS: BP 113/65; PULSE 90; RESP 20; TEMP 96.2; O2SAT 97
[2016-01-26] MEDS: LEVOFLOXACIN 750 MG PREMIX INJ 150 ML IV SCH (12:07)
[2016-01-26 16:00] VITALS: BP 121/72; PULSE 92; RESP 20; TEMP 96; O2SAT 96
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
[2016-01-26 19:50] VITALS: O2SAT 95
[2016-01-26 20:00] VITALS: BP 105/67; PULSE 87; RESP 18; TEMP 97.8; O2SAT 97
[2016-01-26] MEDS: ENOXAPARIN SODIUM 40 MG/0.4 ML SYRINGE SQ SCH (20:27)
[2016-01-27] VITALS (7 sets, daily range): BP systolic 110–123; BP diastolic 65–80; PULSE 80–92; RESP 16–22; TEMP 97–98.4; O2SAT 93–100
[2016-01-27] MEDS: MORPHINE SULFATE 4 MG/ML INJ IV PUSH PRN ×4 (03:55→19:23)
[2016-01-27] MEDS: ACETAMINOPHEN 325MG/HYDROcodone 7.5MG/15ML UDC PO PRN ×2 (05:47→12:34)
[2016-01-27] MEDS: ALPRAZolam 0.25 MG TAB G-TUBE SCH ×3 (05:47→19:25)
[2016-01-27] MEDS: ONDANSETRON HCL 4 MG/2 ML VIAL IV PRN ×3 (05:48→20:24)
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
[2016-01-27] MEDS: RANITIDINE HCL SYRUP 150 MG/10 ML UDC G-TUBE SCH ×2 (09:15→19:24)
[2016-01-27] MEDS: METOCLOPRAMIDE HCL SYRUP 10 MG/10 ML UDC G-TUBE SCH ×2 (09:15→19:24)
[2016-01-27] MEDS: levETIRAcetam 500 MG/5 ML UDC TUBE SCH ×2 (09:15→19:24)
[2016-01-27] MEDS: SENNOSIDES SYRUP 8.8 MG/5 ML CUP GT SCH ×2 (09:15→19:24)
[2016-01-27] MEDS: METOPROLOL TARTRATE 25 MG TAB G-TUBE SCH ×2 (09:16→19:24)
[2016-01-27] MEDS: SODIUM CHLORIDE 0.9% FLUSH 5 ML FLUSH IVF SCH ×2 (09:16→19:25)
[2016-01-27] MEDS: LEVOFLOXACIN 750 MG PREMIX INJ 150 ML IV SCH (12:34)
[2016-01-27] MEDS: HYOSCYAMINE SOLN 0.125 MG/ML 15 ML BTL SL PRN (12:51)
[2016-01-27] MEDS: ENOXAPARIN SODIUM 40 MG/0.4 ML SYRINGE SQ SCH (19:30)
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
[2016-01-27] MEDS: PROMETHAZINE INJ 25 MG/ML VIAL IM PRN (20:16)
[2016-01-27] MEDS: SCOPOLAMINE 1.5 MG PATCH TD SCH (20:44)
[2016-01-28] MEDS: PROMETHAZINE INJ 25 MG/ML VIAL IM PRN ×5 (01:39→23:29)
[2016-01-28] MEDS: ONDANSETRON HCL 4 MG/2 ML VIAL IV PRN ×4 (01:39→20:40)
[2016-01-28] MEDS: ALPRAZolam 0.25 MG TAB G-TUBE SCH ×3 (06:15→20:41)
[2016-01-28 07:57] VITALS: O2SAT 94
[2016-01-28 08:12] VITALS: BP 126/84; PULSE 101; RESP 22; TEMP 98.6; O2SAT 96
[2016-01-28] MEDS: METOCLOPRAMIDE HCL SYRUP 10 MG/10 ML UDC G-TUBE SCH ×2 (08:16→20:41)
[2016-01-28] MEDS: RANITIDINE HCL SYRUP 150 MG/10 ML UDC G-TUBE SCH ×2 (08:16→20:41)
[2016-01-28] MEDS: SENNOSIDES SYRUP 8.8 MG/5 ML CUP GT SCH ×2 (08:16→20:41)
[2016-01-28] MEDS: levETIRAcetam 500 MG/5 ML UDC TUBE SCH ×2 (08:16→20:41)
[2016-01-28] MEDS: REMOVE OLD PATCH TD SCH (08:17)
[2016-01-28] MEDS: fentaNYL 50 MCG/HR PATCH TD SCH (08:17)
[2016-01-28] MEDS: SODIUM CHLORIDE 0.9% FLUSH 5 ML FLUSH IVF SCH ×2 (08:18→21:00)
[2016-01-28] MEDS: METOPROLOL TARTRATE 25 MG TAB G-TUBE SCH ×2 (08:39→20:41)
[2016-01-28] MEDS: LEVOFLOXACIN 750 MG PREMIX INJ 150 ML IV SCH (11:05)
[2016-01-28 16:16] VITALS: BP_SYST 130; BP_SYST 172; BP_DIAS 80; BP_DIAS 87; PULSE 65; PULSE 80; RESP 20; TEMP 96.9; TEMP 97.5; O2SAT 97; O2SAT 98
--- NOTE | 2016-01-28 16:23 | HHI.PR ---
Addendum to Inpatient Note Additional Information I saw the patient. There are no changes to the assessment and plan/care plan. Awaiting trach downsize. May Montez MD Jan 28, 2016 16:23
[2016-01-28 20:00] VITALS: BP 127/78; PULSE 100; RESP 20; TEMP 98.5; O2SAT 96
[2016-01-28] MEDS: ENOXAPARIN SODIUM 40 MG/0.4 ML SYRINGE SQ SCH (20:42)
[2016-01-28 22:30] VITALS: O2SAT 95
[2016-01-29] VITALS (7 sets, daily range): BP systolic 105–123; BP diastolic 75–81; PULSE 89–100; RESP 18–20; TEMP 97.5–98.5; O2SAT 95–99
[2016-01-29] MEDS: ONDANSETRON HCL 4 MG/2 ML VIAL IV PRN ×2 (06:18→12:09)
[2016-01-29] MEDS: ALPRAZolam 0.25 MG TAB G-TUBE SCH ×3 (06:19→21:11)
[2016-01-29] MEDS: SENNOSIDES SYRUP 8.8 MG/5 ML CUP GT SCH ×2 (09:00→21:00)
[2016-01-29] MEDS: PROMETHAZINE INJ 25 MG/ML VIAL IM PRN ×2 (09:13→17:32)
[2016-01-29] MEDS: METOCLOPRAMIDE HCL SYRUP 10 MG/10 ML UDC G-TUBE SCH ×2 (09:14→21:10)
[2016-01-29] MEDS: METOPROLOL TARTRATE 25 MG TAB G-TUBE SCH ×2 (09:14→21:00)
[2016-01-29] MEDS: levETIRAcetam 500 MG/5 ML UDC TUBE SCH ×2 (09:14→21:10)
[2016-01-29] MEDS: RANITIDINE HCL SYRUP 150 MG/10 ML UDC G-TUBE SCH ×2 (09:14→21:10)
[2016-01-29] MEDS: SODIUM CHLORIDE 0.9% FLUSH 5 ML FLUSH IVF SCH ×2 (09:14→21:11)
[2016-01-29] MEDS: LEVOFLOXACIN 750 MG PREMIX INJ 150 ML IV SCH (12:08)
--- NOTE | 2016-01-29 15:12 | HHI.PR ---
Addendum to Inpatient Note Additional Information No acute concerns. No changes to care plan. May Montez MD Jan 29, 2016 15:12
[2016-01-29] MEDS: ENOXAPARIN SODIUM 40 MG/0.4 ML SYRINGE SQ SCH (21:11)
[2016-01-30] VITALS (7 sets, daily range): BP systolic 106–157; BP diastolic 76–94; PULSE 100–103; RESP 15–20; TEMP 96.2–97.9; O2SAT 93–98
[2016-01-30] MEDS: ONDANSETRON HCL 4 MG/2 ML VIAL IV PRN (00:58)
[2016-01-30] MEDS: ACETAMINOPHEN 325MG/HYDROcodone 7.5MG/15ML UDC PO PRN ×2 (01:03→18:22)
[2016-01-30] MEDS: ALPRAZolam 0.25 MG TAB G-TUBE SCH ×3 (06:40→21:01)
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
[2016-01-30] MEDS: SENNOSIDES SYRUP 8.8 MG/5 ML CUP GT SCH ×2 (09:00→21:00)
[2016-01-30] MEDS: RANITIDINE HCL SYRUP 150 MG/10 ML UDC G-TUBE SCH ×2 (09:27→20:58)
[2016-01-30] MEDS: METOPROLOL TARTRATE 25 MG TAB G-TUBE SCH ×2 (09:27→21:00)
[2016-01-30] MEDS: METOCLOPRAMIDE HCL SYRUP 10 MG/10 ML UDC G-TUBE SCH ×2 (09:27→20:58)
[2016-01-30] MEDS: levETIRAcetam 500 MG/5 ML UDC TUBE SCH ×2 (09:27→20:58)
[2016-01-30] MEDS: SODIUM CHLORIDE 0.9% FLUSH 5 ML FLUSH IVF SCH ×2 (09:28→21:00)
[2016-01-30] MEDS: PROMETHAZINE INJ 25 MG/ML VIAL IM PRN (13:03)
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
[2016-01-30] MEDS: SCOPOLAMINE 1.5 MG PATCH TD SCH (21:00)
[2016-01-30] MEDS: REMOVE OLD PATCH TD SCH (21:00)
[2016-01-30] MEDS: ENOXAPARIN SODIUM 40 MG/0.4 ML SYRINGE SQ SCH (21:01)
[2016-01-31] VITALS (8 sets, daily range): BP systolic 109–133; BP diastolic 67–90; PULSE 94–108; RESP 18–20; TEMP 96.2–99.8; O2SAT 92–97
[2016-01-31] MEDS: ACETAMINOPHEN 325MG/HYDROcodone 7.5MG/15ML UDC PO PRN ×4 (00:23→21:58)
[2016-01-31] MEDS: ONDANSETRON HCL 4 MG/2 ML VIAL IV PRN ×4 (00:23→21:57)
[2016-01-31] MEDS: SODIUM CHLORIDE 0.9% FLUSH 5 ML FLUSH IVF PRN (00:23)
[2016-01-31] MEDS: ACETAMINOPHEN 650 MG/20.3 ML UDC J-TUBE PRN (05:06)
[2016-01-31] MEDS: ALPRAZolam 0.25 MG TAB G-TUBE SCH ×3 (05:10→21:57)
[2016-01-31] MEDS: METOPROLOL TARTRATE 25 MG TAB G-TUBE SCH ×2 (08:09→21:56)
[2016-01-31] MEDS: levETIRAcetam 500 MG/5 ML UDC TUBE SCH ×2 (08:10→21:57)
[2016-01-31] MEDS: METOCLOPRAMIDE HCL SYRUP 10 MG/10 ML UDC G-TUBE SCH ×2 (08:11→21:57)
[2016-01-31] MEDS: SENNOSIDES SYRUP 8.8 MG/5 ML CUP GT SCH ×2 (08:12→21:00)
[2016-01-31] MEDS: SODIUM CHLORIDE 0.9% FLUSH 5 ML FLUSH IVF SCH ×2 (08:12→21:57)
[2016-01-31] MEDS: RANITIDINE HCL SYRUP 150 MG/10 ML UDC G-TUBE SCH ×2 (08:12→21:56)
[2016-01-31] MEDS: fentaNYL 50 MCG/HR PATCH TD SCH (08:16)
[2016-01-31] MEDS: REMOVE OLD PATCH TD SCH (08:16)
[2016-01-31] MEDS: HYOSCYAMINE SOLN 0.125 MG/ML 15 ML BTL SL PRN (08:16)
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
[2016-01-31] MEDS: ENOXAPARIN SODIUM 40 MG/0.4 ML SYRINGE SQ SCH (21:56)
[2016-01-31] MEDS: PROMETHAZINE INJ 25 MG/ML VIAL IM PRN (22:23)
[2016-02-01] VITALS (26 sets, daily range): BP systolic 72–113; BP diastolic 48–71; PULSE 96–141; RESP 16–24; TEMP 97.8–102; O2SAT 89–95
[2016-02-01] MEDS: ACETAMINOPHEN 650 MG/20.3 ML UDC J-TUBE PRN (04:15)
[2016-02-01] MEDS: RESP: ALBUTEROL 2.5 MG/IPRATROPIUM 0.5 MG NEB (PRN) INH (04:27)
[2016-02-01] MEDS ORDERED: METOPROLOL TARTRATE 25 MG TAB PO ONE (04:45)
[2016-02-01] MEDS: ACETAMINOPHEN 325MG/HYDROcodone 7.5MG/15ML UDC PO PRN (05:10)
[2016-02-01] MEDS: ALPRAZolam 0.25 MG TAB G-TUBE SCH ×3 (05:10→23:03)
[2016-02-01 05:28] LABS: BASOPHIL # 0.2 TH/MM3 (0-0.2); HEMATOCRIT 33.9 % (39.0-51.0); LYMPHOCYTE # 0.8 TH/MM3 (1.0-4.8); MEAN CELL VOLUME 94.2 FL (80.0-100.0); MEAN CORPUSCULAR HEMOGLOBIN 31.6 PG (27.0-34.0); MEAN CORPUSCULAR HGB CONC 33.6 % (32.0-36.0); MONO % 1.8 % (0.0-8.0); NEUT % 93.2 % (16.0-70.0); PLATELET COUNT 413 TH/MM3 (150-450); RED CELL DISTRIBUTION WIDTH 13.7 % (11.6-17.2); WHITE BLOOD COUNT 20.4 TH/MM3 (4.0-11.0)
[2016-02-01 05:29] LABS: HEMO FLAGS AUTO DIFF
--- NOTE | 2016-02-01 05:33 | RADHPO ---
EXAM DATE/TIME: 02/01/2016 05:25 [facility] COMPARISON: CHEST SINGLE AP, January 22, 2016, 11:05. INDICATIONS : Congestion. Cough. MEDICAL HISTORY : None. SURGICAL HISTORY : None. ENCOUNTER: Subsequent ACUITY: 4 - 6 days PAIN SCORE: 6/10 LOCATION: Bilateral chest FINDINGS: There are interstitial opacities, some which are probably chronic. There is patchy superimposed air s pace consolidation on the left. Left volume loss again noted. No pleural effusion or pneumothorax see n. Heart size stable, upper limits of normal. Trach collar again noted. CONCLUSION: Chronic interstitial lung disease. Patchy airspace disease with volume loss on the left, not signific antly changed. Martinez Arciniega MD on February 01, 2016 at 5:29 Board Certified Radiologist. This report was verified electronically.
[2016-02-01 05:38] LABS: POTASSIUM 4.5 MEQ/L (3.5-5.1)
[2016-02-01 05:41] LABS: BICARBONATE 27.3 MEQ/L (21.0-32.0); MAGNESIUM 1.9 MG/DL (1.5-2.5)
[2016-02-01 05:52] LABS: BANDS 2 % (0-6); NEUTROPHIL # MANUAL DIFF 19.4 TH/MM3 (1.8-7.7); PLATELET ESTIMATE SMEAR NORMAL (NORMAL); PLATELET MORPHOLOGY NORMAL (NORMAL); POLYS (SEG NEUTROPHILS) 93 % (16-70); SCAN/DIFF FINAL DIFF MANUAL; WBC DIFF SAMPLE 100
[2016-02-01] MEDS ORDERED: SODIUM CHLOR 0.9% 1000 ML INJ 1,000 ML IV SCH (07:45)
[2016-02-01] MEDS ORDERED: Vancomycin Consult Pharmacy 1 EA OTHER SCH (07:45)
[2016-02-01] MEDS ORDERED: SODIUM CHLOR 0.9% 1000 ML INJ 1,000 ML IV ONE ×4 (07:45→20:30)
[2016-02-01] MEDS ORDERED: VANCOMYCIN INJ 1,000 MG in SODIUM CHLOR 0.9% 250 ML INJ 250 ML IV ONE (08:00)
[2016-02-01] MEDS: ONDANSETRON HCL 4 MG/2 ML VIAL IV PRN (08:23)
[2016-02-01] MEDS: METOPROLOL TARTRATE 25 MG TAB G-TUBE SCH (09:00)
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
[2016-02-01] MEDS: PIPERACIL-TAZO 4.5 GM PREMIX 100 ML IV SCH ×3 (11:59→22:33)
[2016-02-01] MEDS ORDERED: DIATRIZOATE MEGLUM/DIATRIZOATE SOD 9 ML CUP PO ONE (12:00)
[2016-02-01] MEDS: SENNOSIDES SYRUP 8.8 MG/5 ML CUP GT SCH ×2 (12:05→21:00)
[2016-02-01] MEDS: levETIRAcetam 500 MG/5 ML UDC TUBE SCH ×2 (12:05→22:34)
[2016-02-01] MEDS: RANITIDINE HCL SYRUP 150 MG/10 ML UDC G-TUBE SCH ×2 (12:05→22:36)
[2016-02-01] MEDS: SODIUM CHLORIDE 0.9% FLUSH 5 ML FLUSH IVF SCH ×2 (12:07→21:00)
[2016-02-01] MEDS: METOCLOPRAMIDE HCL SYRUP 10 MG/10 ML UDC G-TUBE SCH ×2 (12:07→22:35)
[2016-02-01] MEDS: SODIUM CHLOR 0.9% 1000 ML INJ 1,000 ML IV SCH ×3 (12:10→21:29)
[2016-02-01 14:21] LABS: LACTIC ACID GHOST NOT REPORTABLE
[2016-02-01 15:10] LABS: BLOOD, URINE NEG (NEG); GLUCOSE,URINE NEG (NEG); KETONE, URINE NEG (NEG); NITRITE,URINE NEG (NEG)
[2016-02-01 15:26] LABS: METHOD OF COLLECTION CLEAN CATCH; MUCUS URINE FEW /lpf (OCC); URINE COLOR YELLOW (YELLW/STRAW)
[2016-02-01 15:27] LABS: HYALINE CAST, URINE 50-100 /lpf (RARE)
[2016-02-01 15:28] LABS: WBC, URINE 0-2 /hpf (0-5)
[2016-02-01 15:30] LABS: BACTERIA, URINE RARE /hpf; COMMENT (UR) CULT NOT INDICATED; CULTURE IF INDICATED CULT NOT INDICATED; SQUAMOUS EPITHELIAL CELL URINE 0-2 /hpf (0-5)
[2016-02-01] MEDS ORDERED: IOHEXOL 350 MG/ML 10 ML VIAL (for RAD DIAG) IV ONE (16:38)
--- NOTE | 2016-02-01 16:48 | RADHPO ---
EXAM DATE/TIME: 02/01/2016 16:25 [facility] COMPARISON: CT ABDOMEN & PELVIS W CONTRAST, December 15, 2015, 14:36. INDICATIONS : Right lower quadrant pain. IV CONTRAST: 70 cc Omnipaque 350 (iohexol) IV ORAL CONTRAST: Prescribed oral contrast ingested. RADIATION DOSE: 6.52 CTDIvol (mGy) MEDICAL HISTORY : Hypertension. Hernia, hiatal. Gastroesophageal reflux disease. SURGICAL HISTORY : hisen funduplication ENCOUNTER: Initial ACUITY: 1 day PAIN SCALE: 7/10 LOCATION: Right lower quadrant abdomen TECHNIQUE: Volumetric scanning of the abdomen and pelvis was performed. Using automated exposure control and ad justment of the mA and/or kV according to patient size, radiation dose was kept as low as reasonably achievable to obtain optimal diagnostic quality images. FINDINGS: There is bilateral lower lobe atelectasis versus pneumonia. The liver is normal in size and free of f ocal defects. Multiple calcified granulomas are present in the spleen. Gastrojejunostomy tube is pres ent in the left portion of the duodenumThe gallbladder and pancreas are unremarkable. No intrahepatic or extrahepatic ductal dilatation is seen. The adrenal glands and kidneys appear normal bilaterally. No hydronephrosis or mass lesions are identified. Examination of the pelvis demonstrates no evidence of free fluid or pelvic mass. No abnormally enlarg ed inguinal or retroperitoneal lymph nodes are present. The bladder is unremarkable. The appendix is not discretely identified though there are no inflammatory changes in the right lower quadrant. CONCLUSION: 1. No evidence of acute abdominal or pelvic process. No masses are identified. 2. Bilateral lower lobe atelectasis versus pneumonia. Byron Albright MD on February 01, 2016 at 16:42 Board Certified Radiologist. This report was verified electronically.
[2016-02-01] MEDS ORDERED: CHLORHEXIDINE GLUCONATE 2 % 1 PACK (2 CLOTHS)(extra cloths) TOP PRN (18:15)
[2016-02-01] MEDS: RESP: ALBUTEROL 2.5 MG/IPRATROPIUM 0.5 MG NEB (SCH) NEB (20:10)
[2016-02-01] MEDS: ENOXAPARIN SODIUM 40 MG/0.4 ML SYRINGE SQ SCH (22:34)
[2016-02-02] VITALS (36 sets, daily range): BP systolic 81–118; BP diastolic 29–68; PULSE 94–112; RESP 12–39; TEMP 97.6–98.7; O2SAT 93–99
[2016-02-02] MEDS: CHLORHEXIDINE GLUCONATE 2 % 1 PACK (2 CLOTHS)(taper/protocol) TOP SCH
[2016-02-02] MEDS ORDERED: SODIUM CHLOR 0.9% 1000 ML INJ 1,000 ML IV ONE ×2 (00:30→08:00)
[2016-02-02] MEDS: HYOSCYAMINE SOLN 0.125 MG/ML 15 ML BTL SL PRN ×4 (00:40→19:33)
[2016-02-02] MEDS: VANCOMYCIN 1,000 MG/NS 250 ML IV SCH ×4 (01:23→19:31)
[2016-02-02] MEDS: PIPERACIL-TAZO 4.5 GM PREMIX 100 ML IV SCH ×4 (02:40→21:38)
[2016-02-02 05:09] LABS: AUTOMATED NEUTROPHIL # 7.6 TH/MM3 (1.8-7.7); BASOPHIL % 0.5 % (0.0-2.0); EOSINOPHIL # 0.2 TH/MM3 (0-0.4); EOSINOPHIL % 2.2 % (0.0-4.0); HEMATOCRIT 24.1 % (39.0-51.0); HEMO FLAGS DIFF FINAL; LYMPH % 11.2 % (9.0-44.0); MEAN CELL VOLUME 95.2 FL (80.0-100.0); MEAN CORPUSCULAR HEMOGLOBIN 31.9 PG (27.0-34.0); MEAN CORPUSCULAR HGB CONC 33.5 % (32.0-36.0); MONO % 3.4 % (0.0-8.0); NEUT % 82.7 % (16.0-70.0); PLATELET COUNT 278 TH/MM3 (150-450); RED BLOOD COUNT 2.54 MIL/MM3 (4.50-5.90); RED CELL DISTRIBUTION WIDTH 14.2 % (11.6-17.2); WHITE BLOOD COUNT 9.1 TH/MM3 (4.0-11.0)
[2016-02-02 05:31] LABS: BICARBONATE 27.1 MEQ/L (21.0-32.0); POTASSIUM 3.6 MEQ/L (3.5-5.1)
[2016-02-02] MEDS: ALPRAZolam 0.25 MG TAB G-TUBE SCH ×3 (06:39→21:56)
[2016-02-02] MEDS: RESP: ALBUTEROL 2.5 MG/IPRATROPIUM 0.5 MG NEB (SCH) NEB ×3 (07:28→19:18)
[2016-02-02] MEDS: METOCLOPRAMIDE HCL SYRUP 10 MG/10 ML UDC G-TUBE SCH ×2 (08:49→21:56)
[2016-02-02] MEDS: RANITIDINE HCL SYRUP 150 MG/10 ML UDC G-TUBE SCH ×2 (08:49→21:56)
[2016-02-02] MEDS: levETIRAcetam 500 MG/5 ML UDC TUBE SCH ×2 (08:49→21:56)
[2016-02-02] MEDS: SENNOSIDES SYRUP 8.8 MG/5 ML CUP GT SCH ×2 (08:50→19:34)
[2016-02-02] MEDS: SODIUM CHLORIDE 0.9% FLUSH 5 ML FLUSH IVF SCH ×2 (08:50→19:34)
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
[2016-02-02] MEDS: SODIUM CHLOR 0.9% 1000 ML INJ 1,000 ML IV SCH ×3 (12:50→21:38)
[2016-02-02] MEDS: ACETAMINOPHEN 325MG/HYDROcodone 7.5MG/15ML UDC PO PRN (12:50)
[2016-02-02] MEDS: REMOVE OLD PATCH TD SCH (19:22)
[2016-02-02] MEDS: SCOPOLAMINE 1.5 MG PATCH TD SCH (19:23)
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
[2016-02-02] MEDS: ENOXAPARIN SODIUM 40 MG/0.4 ML SYRINGE SQ SCH (21:56)
[2016-02-02] MEDS ORDERED: NS + KCL 20 MEQ INJ 1,000 ML IV ONE (23:45)
[2016-02-03] VITALS (17 sets, daily range): BP systolic 105–137; BP diastolic 54–71; PULSE 80–110; RESP 18–28; TEMP 98–99.2; O2SAT 92–100
[2016-02-03] MEDS: SODIUM CHLOR 0.9% 1000 ML INJ 1,000 ML IV SCH ×4 (01:15→16:01)
[2016-02-03] MEDS: HYOSCYAMINE SOLN 0.125 MG/ML 15 ML BTL SL PRN ×3 (02:07→17:17)
[2016-02-03] MEDS: PIPERACIL-TAZO 4.5 GM PREMIX 100 ML IV SCH ×4 (02:07→21:38)
[2016-02-03] MEDS: CHLORHEXIDINE GLUCONATE 2 % 1 PACK (2 CLOTHS)(taper/protocol) TOP SCH (04:00)
[2016-02-03] MEDS: ALPRAZolam 0.25 MG TAB G-TUBE SCH ×3 (07:19→21:36)
[2016-02-03] MEDS: RESP: ALBUTEROL 2.5 MG/IPRATROPIUM 0.5 MG NEB (SCH) NEB ×3 (07:32→19:45)
[2016-02-03] MEDS: METOCLOPRAMIDE HCL SYRUP 10 MG/10 ML UDC G-TUBE SCH ×2 (08:09→21:36)
[2016-02-03] MEDS: RANITIDINE HCL SYRUP 150 MG/10 ML UDC G-TUBE SCH ×2 (08:09→21:36)
[2016-02-03] MEDS: SODIUM CHLORIDE 0.9% FLUSH 5 ML FLUSH IVF SCH ×2 (08:09→21:00)
[2016-02-03] MEDS: levETIRAcetam 500 MG/5 ML UDC TUBE SCH ×2 (08:09→21:36)
[2016-02-03] MEDS: SENNOSIDES SYRUP 8.8 MG/5 ML CUP GT SCH ×2 (08:09→21:36)
[2016-02-03] MEDS: fentaNYL 25 MCG/HR PATCH TD SCH (08:10)
[2016-02-03] MEDS: REMOVE OLD PATCH TD SCH (08:10)
--- NOTE | 2016-02-03 10:16 | RADHPO ---
EXAM DATE/TIME: 02/03/2016 09:57 [facility] COMPARISON: CHEST SINGLE AP, February 01, 2016, 5:25. INDICATIONS : Cough. MEDICAL HISTORY : None. SURGICAL HISTORY : tracheostomy ENCOUNTER: Subsequent ACUITY: 1 month PAIN SCORE: 0/10 LOCATION: Bilateral chest FINDINGS: The cardiac silhouette is enlarged in transverse diameter. A tracheostomy tube is in place in the mid line. There is patchy alveolar disease bilaterally compatible with edema or pneumonia. The findings h ave worsened when compared with the prior examination. Left-sided effusion is present. CONCLUSION: Patchy alveolar disease characteristic of edema or pneumonia. The findings have worsened when compar ed with the prior examination. Byron Albright MD on February 03, 2016 at 10:13 Board Certified Radiologist. This report was verified electronically.
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
[2016-02-03] MEDS ORDERED: PHARMACY ORDERED LAB XX ONE (13:45)
[2016-02-03] MEDS: VANCOMYCIN 1,000 MG/NS 250 ML IV SCH ×2 (14:32)
[2016-02-03] MEDS ORDERED: FUROSEMIDE 20 MG/2 ML VIAL IV PUSH ONE (17:15)
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
[2016-02-03] MEDS: ENOXAPARIN SODIUM 40 MG/0.4 ML SYRINGE SQ SCH (21:36)
[2016-02-04] VITALS (13 sets, daily range): BP systolic 114–144; BP diastolic 62–87; PULSE 86–111; RESP 15–26; TEMP 97.3–99.2; O2SAT 94–100
[2016-02-04] MEDS: PIPERACIL-TAZO 4.5 GM PREMIX 100 ML IV SCH ×4 (02:43→21:06)
[2016-02-04] MEDS: CHLORHEXIDINE GLUCONATE 2 % 1 PACK (2 CLOTHS)(taper/protocol) TOP SCH (03:53)
[2016-02-04] MEDS ORDERED: VANCOMYCIN INJ 1,250 MG in SODIUM CHLOR 0.9% 250 ML INJ 250 ML IV SCH (04:00)
[2016-02-04] MEDS: SODIUM CHLOR 0.9% 1000 ML INJ 1,000 ML IV SCH (05:21)
[2016-02-04] MEDS: ALPRAZolam 0.25 MG TAB G-TUBE SCH ×3 (05:57→21:07)
[2016-02-04 06:17] LABS: AUTOMATED NEUTROPHIL # 3.8 TH/MM3 (1.8-7.7); BASOPHIL % 0.6 % (0.0-2.0); EOSINOPHIL # 0.2 TH/MM3 (0-0.4); HEMATOCRIT 27.7 % (39.0-51.0); HEMO FLAGS DIFF FINAL; LYMPH % 23.6 % (9.0-44.0); LYMPHOCYTE # 1.3 TH/MM3 (1.0-4.8); MEAN CORPUSCULAR HEMOGLOBIN 30.4 PG (27.0-34.0); MEAN CORPUSCULAR HGB CONC 32.7 % (32.0-36.0); MONO % 7.7 % (0.0-8.0); NEUT % 65.1 % (16.0-70.0); PLATELET COUNT 364 TH/MM3 (150-450); RED BLOOD COUNT 2.98 MIL/MM3 (4.50-5.90); RED CELL DISTRIBUTION WIDTH 13.6 % (11.6-17.2); WHITE BLOOD COUNT 5.7 TH/MM3 (4.0-11.0)
[2016-02-04 06:25] LABS: BICARBONATE 28.2 MEQ/L (21.0-32.0); MAGNESIUM 1.7 MG/DL (1.5-2.5)
[2016-02-04 06:26] LABS: POTASSIUM 2.7 MEQ/L (3.5-5.1)
[2016-02-04] MEDS: RESP: ALBUTEROL 2.5 MG/IPRATROPIUM 0.5 MG NEB (SCH) NEB ×3 (07:32→19:28)
[2016-02-04] MEDS: SODIUM CHLORIDE 0.9% FLUSH 5 ML FLUSH IVF SCH ×2 (08:15→21:00)
[2016-02-04] MEDS ORDERED: POTASSIUM CHLORIDE 20 MEQ CONTROLLED RELEASE TAB PO ONE (08:30)
[2016-02-04] MEDS: SENNOSIDES SYRUP 8.8 MG/5 ML CUP GT SCH ×2 (08:46→21:07)
[2016-02-04] MEDS: RANITIDINE HCL SYRUP 150 MG/10 ML UDC G-TUBE SCH ×2 (08:46→21:07)
[2016-02-04] MEDS: levETIRAcetam 500 MG/5 ML UDC TUBE SCH ×2 (08:46→21:07)
[2016-02-04] MEDS: OLANZapine ODT 5 MG TAB PRN (08:47)
[2016-02-04] MEDS: METOCLOPRAMIDE HCL SYRUP 10 MG/10 ML UDC G-TUBE SCH ×2 (08:47→21:07)
[2016-02-04] MEDS: POTASSIUM CHLOR 20 MEQ PREMIX 100 ML IV SCH ×2 (08:48→11:00)
[2016-02-04] MEDS ORDERED: MAGNESIUM SULFATE 1 GM PREMIX 100 ML IV ONE (09:00)
[2016-02-04] MEDS ORDERED: FUROSEMIDE 20 MG/2 ML VIAL IV PUSH ONE (09:00)
[2016-02-04] MEDS ORDERED: POTASSIUM CL 40 MEQ/30 ML LIQ UDC G-TUBE ONE (09:00)
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
[2016-02-04] MEDS: ENOXAPARIN SODIUM 40 MG/0.4 ML SYRINGE SQ SCH (21:07)
[2016-02-04] MEDS: ESCITALOPRAM OXALATE 20 MG TAB PO SCH (21:07)
[2016-02-05] VITALS (11 sets, daily range): BP systolic 141–155; BP diastolic 84–96; PULSE 96–111; RESP 18–22; TEMP 97.7–99; O2SAT 83–95
[2016-02-05] MEDS: CHLORHEXIDINE GLUCONATE 2 % 1 PACK (2 CLOTHS)(taper/protocol) TOP SCH (04:00)
[2016-02-05] MEDS: PIPERACIL-TAZO 4.5 GM PREMIX 100 ML IV SCH ×4 (04:07→23:58)
[2016-02-05] MEDS: OLANZapine ODT 5 MG TAB PRN (04:08)
[2016-02-05] MEDS: ALPRAZolam 0.25 MG TAB G-TUBE SCH (04:08)
[2016-02-05 07:19] LABS: BICARBONATE 28.9 MEQ/L (21.0-32.0); MAGNESIUM 1.9 MG/DL (1.5-2.5)
[2016-02-05 07:22] LABS: POTASSIUM 2.9 MEQ/L (3.5-5.1)
[2016-02-05] MEDS: RESP: ALBUTEROL 2.5 MG/IPRATROPIUM 0.5 MG NEB (SCH) NEB ×3 (07:55→19:56)
[2016-02-05] MEDS ORDERED: MAGNESIUM SULFATE 1 GM PREMIX 100 ML IV ONE (08:00)
[2016-02-05] MEDS: levETIRAcetam 500 MG/5 ML UDC TUBE SCH ×2 (09:00→22:22)
[2016-02-05] MEDS: POTASSIUM CHLOR 20 MEQ PREMIX 100 ML IV SCH ×2 (09:00→11:00)
[2016-02-05] MEDS: SODIUM CHLORIDE 0.9% FLUSH 5 ML FLUSH IVF SCH ×2 (09:00→23:58)
[2016-02-05] MEDS: SENNOSIDES SYRUP 8.8 MG/5 ML CUP GT SCH ×2 (09:00→22:22)
[2016-02-05] MEDS: METOCLOPRAMIDE HCL SYRUP 10 MG/10 ML UDC G-TUBE SCH ×2 (09:00→22:23)
[2016-02-05] MEDS: RANITIDINE HCL SYRUP 150 MG/10 ML UDC G-TUBE SCH ×2 (09:00→22:20)
[2016-02-05] MEDS ORDERED: ALPRAZolam 0.25 MG TAB PO PRN (09:45)
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
[2016-02-05] MEDS: ALPRAZolam 0.5 MG TAB G-TUBE SCH ×2 (14:00→23:58)
[2016-02-05] MEDS: REMOVE OLD PATCH TD SCH (21:00)
[2016-02-05] MEDS: ENOXAPARIN SODIUM 40 MG/0.4 ML SYRINGE SQ SCH (22:19)
[2016-02-05] MEDS: METOPROLOL TARTRATE 25 MG TAB G-TUBE SCH (22:20)
[2016-02-05] MEDS: ESCITALOPRAM OXALATE 20 MG TAB PO SCH (22:20)
[2016-02-05] MEDS: SCOPOLAMINE 1.5 MG PATCH TD SCH (22:21)
[2016-02-05] MEDS: ACETAMINOPHEN 325MG/HYDROcodone 7.5MG/15ML UDC PO PRN (22:24)
[2016-02-06] VITALS (8 sets, daily range): BP systolic 115–134; BP diastolic 72–87; PULSE 87–94; RESP 18–20; TEMP 97.2–97.8; O2SAT 93–96
[2016-02-06] MEDS: CHLORHEXIDINE GLUCONATE 2 % 1 PACK (2 CLOTHS)(taper/protocol) TOP SCH (03:29)
[2016-02-06] MEDS: SODIUM CHLORIDE 0.9% FLUSH 5 ML FLUSH IVF PRN (03:30)
[2016-02-06] MEDS: PIPERACIL-TAZO 4.5 GM PREMIX 100 ML IV SCH ×2 (03:30→09:43)
[2016-02-06] MEDS: ALPRAZolam 0.5 MG TAB G-TUBE SCH ×3 (05:38→22:27)
[2016-02-06 06:17] LABS: BICARBONATE 29.4 MEQ/L (21.0-32.0)
[2016-02-06] MEDS: RANITIDINE HCL SYRUP 150 MG/10 ML UDC G-TUBE SCH ×2 (09:26→22:27)
[2016-02-06] MEDS: METOCLOPRAMIDE HCL SYRUP 10 MG/10 ML UDC G-TUBE SCH ×2 (09:27→21:00)
[2016-02-06] MEDS: SENNOSIDES SYRUP 8.8 MG/5 ML CUP GT SCH ×2 (09:27→22:27)
[2016-02-06] MEDS: levETIRAcetam 500 MG/5 ML UDC TUBE SCH ×2 (09:27→22:27)
[2016-02-06] MEDS: fentaNYL 25 MCG/HR PATCH TD SCH (09:29)
[2016-02-06] MEDS: FUROSEMIDE 20 MG TAB PO SCH (09:32)
[2016-02-06] MEDS: METOPROLOL TARTRATE 25 MG TAB G-TUBE SCH ×2 (09:33→22:27)
[2016-02-06] MEDS: SODIUM CHLORIDE 0.9% FLUSH 5 ML FLUSH IVF SCH ×2 (09:45→22:28)
[2016-02-06] MEDS ORDERED: PHARMACY ORDERED LAB XX ONE (09:45)
[2016-02-06] MEDS: REMOVE OLD PATCH TD SCH (09:59)
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
[2016-02-06] MEDS ORDERED: POTASSIUM CHLORIDE 25 MEQ EFFERVESCENT TAB PO ONE (15:30)
[2016-02-06] MEDS: POTASSIUM CHLOR 20 MEQ PREMIX 100 ML IV SCH ×2 (15:53→18:36)
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
[2016-02-06] MEDS: ENOXAPARIN SODIUM 40 MG/0.4 ML SYRINGE SQ SCH (22:27)
[2016-02-06] MEDS: ESCITALOPRAM OXALATE 20 MG TAB PO SCH (22:27)
[2016-02-07] VITALS (7 sets, daily range): BP systolic 121–133; BP diastolic 80–89; PULSE 77–84; RESP 17–18; TEMP 96.2–98; O2SAT 92–99
[2016-02-07] MEDS: ACETAMINOPHEN 325MG/HYDROcodone 7.5MG/15ML UDC PO PRN ×2 (01:29→14:23)
[2016-02-07] MEDS: ALPRAZolam 0.5 MG TAB G-TUBE SCH ×3 (06:08→23:04)
[2016-02-07 07:03] LABS: POTASSIUM 3.7 MEQ/L (3.5-5.1)
[2016-02-07 07:06] LABS: BICARBONATE 29.2 MEQ/L (21.0-32.0)
[2016-02-07] MEDS: levETIRAcetam 500 MG/5 ML UDC TUBE SCH ×2 (09:51→23:04)
[2016-02-07] MEDS: METOCLOPRAMIDE HCL SYRUP 10 MG/10 ML UDC G-TUBE SCH ×2 (09:52→23:03)
[2016-02-07] MEDS: FUROSEMIDE 20 MG TAB PO SCH (09:52)
[2016-02-07] MEDS: RANITIDINE HCL SYRUP 150 MG/10 ML UDC G-TUBE SCH ×2 (09:52→23:05)
[2016-02-07] MEDS: LEVOFLOXACIN 750 MG TAB PO SCH (09:52)
[2016-02-07] MEDS: SENNOSIDES SYRUP 8.8 MG/5 ML CUP GT SCH ×2 (09:52→23:04)
[2016-02-07] MEDS: SODIUM CHLORIDE 0.9% FLUSH 5 ML FLUSH IVF SCH ×2 (09:52→23:05)
[2016-02-07] MEDS: METOPROLOL TARTRATE 25 MG TAB G-TUBE SCH ×2 (09:53→23:04)
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
[2016-02-07] MEDS: ENOXAPARIN SODIUM 40 MG/0.4 ML SYRINGE SQ SCH (23:03)
[2016-02-07] MEDS: ESCITALOPRAM OXALATE 20 MG TAB PO SCH (23:04)
[2016-02-07] MEDS: ACETAMINOPHEN 650 MG/20.3 ML UDC J-TUBE PRN (23:05)
[2016-02-08] VITALS (8 sets, daily range): BP systolic 94–168; BP diastolic 66–90; PULSE 76–86; RESP 14–20; TEMP 96.4–98.1; O2SAT 93–98
[2016-02-08] MEDS: ALPRAZolam 0.5 MG TAB G-TUBE SCH ×3 (05:35→23:12)
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
[2016-02-08] MEDS: METOCLOPRAMIDE HCL SYRUP 10 MG/10 ML UDC G-TUBE SCH ×2 (10:57→23:09)
[2016-02-08] MEDS: levETIRAcetam 500 MG/5 ML UDC TUBE SCH ×2 (10:57→23:10)
[2016-02-08] MEDS: RANITIDINE HCL SYRUP 150 MG/10 ML UDC G-TUBE SCH ×2 (10:57→23:09)
[2016-02-08] MEDS: SENNOSIDES SYRUP 8.8 MG/5 ML CUP GT SCH ×2 (10:57→21:00)
[2016-02-08] MEDS: METOPROLOL TARTRATE 25 MG TAB G-TUBE SCH ×2 (10:58→23:13)
[2016-02-08] MEDS: FUROSEMIDE 20 MG TAB PO SCH (10:58)
[2016-02-08] MEDS: LEVOFLOXACIN 750 MG TAB PO SCH (10:58)
[2016-02-08] MEDS: SODIUM CHLORIDE 0.9% FLUSH 5 ML FLUSH IVF SCH ×2 (10:59→23:11)
[2016-02-08] MEDS: ACETAMINOPHEN 325MG/HYDROcodone 7.5MG/15ML UDC PO PRN (14:57)
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
[2016-02-08] MEDS: REMOVE OLD PATCH TD SCH (21:00)
[2016-02-08] MEDS: ENOXAPARIN SODIUM 40 MG/0.4 ML SYRINGE SQ SCH (23:11)
[2016-02-08] MEDS: ESCITALOPRAM OXALATE 20 MG TAB PO SCH (23:11)
[2016-02-08] MEDS: ACETAMINOPHEN 650 MG/20.3 ML UDC J-TUBE PRN (23:12)
[2016-02-08] MEDS: SCOPOLAMINE 1.5 MG PATCH TD SCH (23:13)
[2016-02-09] VITALS: BP 118/82; PULSE 79; RESP 18; TEMP 98.5; O2SAT 95
[2016-02-09 04:00] VITALS: BP 134/61; PULSE 84; RESP 18; TEMP 97.3; O2SAT 96
[2016-02-09] MEDS: ALPRAZolam 0.5 MG TAB G-TUBE SCH ×3 (05:22→21:03)
[2016-02-09 07:25] VITALS: O2SAT 95
[2016-02-09 08:00] VITALS: BP 142/90; PULSE 88; RESP 20; TEMP 96.9; O2SAT 98
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
[2016-02-09] MEDS ORDERED: SENNOSIDES SYRUP 8.8 MG/5 ML CUP GT PRN (09:00)
[2016-02-09] MEDS: SODIUM CHLORIDE 0.9% FLUSH 5 ML FLUSH IVF SCH ×2 (09:00→21:04)
[2016-02-09] MEDS: METOCLOPRAMIDE HCL SYRUP 10 MG/10 ML UDC G-TUBE SCH ×2 (10:06→21:01)
[2016-02-09] MEDS: FUROSEMIDE 20 MG TAB PO SCH (10:07)
[2016-02-09] MEDS: LEVOFLOXACIN 750 MG TAB PO SCH (10:07)
[2016-02-09] MEDS: METOPROLOL TARTRATE 25 MG TAB G-TUBE SCH ×2 (10:07→21:02)
[2016-02-09] MEDS: levETIRAcetam 500 MG/5 ML UDC TUBE SCH ×2 (10:07→21:01)
[2016-02-09] MEDS: fentaNYL 25 MCG/HR PATCH TD SCH (10:07)
[2016-02-09] MEDS: RANITIDINE HCL SYRUP 150 MG/10 ML UDC G-TUBE SCH ×2 (10:07→21:02)
[2016-02-09] MEDS: REMOVE OLD PATCH TD SCH (10:18)
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
[2016-02-09 19:25] VITALS: O2SAT 95
[2016-02-09 20:00] VITALS: BP 128/82; PULSE 83; RESP 20; TEMP 98.3; O2SAT 94
[2016-02-09] MEDS: ESCITALOPRAM OXALATE 20 MG TAB PO SCH (21:02)
[2016-02-09] MEDS: ENOXAPARIN SODIUM 40 MG/0.4 ML SYRINGE SQ SCH (21:03)
[2016-02-10] MEDS: ACETAMINOPHEN 325MG/HYDROcodone 7.5MG/15ML UDC PO PRN (04:56)
[2016-02-10] MEDS: ALPRAZolam 0.5 MG TAB G-TUBE SCH ×3 (05:00→20:44)
[2016-02-10 08:00] VITALS: BP 128/80; PULSE 80; RESP 24; TEMP 95.7; O2SAT 95
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
[2016-02-10] MEDS: METOCLOPRAMIDE HCL SYRUP 10 MG/10 ML UDC G-TUBE SCH ×2 (09:00→20:44)
[2016-02-10] MEDS: SODIUM CHLORIDE 0.9% FLUSH 5 ML FLUSH IVF SCH ×2 (09:00→20:45)
[2016-02-10] MEDS: RANITIDINE HCL SYRUP 150 MG/10 ML UDC G-TUBE SCH ×2 (09:00→20:44)
[2016-02-10] MEDS: METOPROLOL TARTRATE 25 MG TAB G-TUBE SCH ×2 (09:00→20:44)
[2016-02-10] MEDS: LEVOFLOXACIN 750 MG TAB PO SCH (09:00)
[2016-02-10] MEDS: levETIRAcetam 500 MG/5 ML UDC TUBE SCH ×2 (09:00→20:44)
[2016-02-10 09:48] VITALS: O2SAT 95
--- NOTE | 2016-02-10 16:22 | RADHPO ---
EXAM DATE/TIME: 02/10/2016 15:44 [place] COMPARISON: ESOPHAGRAM, January 05, 2016, 14:16. INDICATIONS : Tracheoesophageal fistula. FLUORO TIME: 3.9 minutes IMAGE COUNT: 33 CONTRAST: 1. Liquid E-Z Paque Barium Sulfate (60% w/v, 41% w.w) MEDICAL HISTORY : Hypertension. Gastroesophageal reflux disease. Hiatal hernia. SURGICAL HISTORY : None. ENCOUNTER: Subsequent ACUITY: 2 months PAIN SCORE: 5/10 LOCATION: Bilateral abdomen FINDINGS: Today's exam is compared to the prior study. There continues to be an esophageal/tracheal fistula ent ering the left mainstem bronchus where there is an expandable stent. This fistula was present on the prior exam. The fistula appears to be less prominent but still patent on today's examination. Contras t is seen entering the left airway. CONCLUSION: There continues to be a patent esophageal tracheal/fistula with connection to the left mainstem [facility]. Hu Reyes MD Board Certified Radiologist. This report was verified electronically.
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
[2016-02-10 20:15] VITALS: O2SAT 94
[2016-02-10] MEDS: ESCITALOPRAM OXALATE 20 MG TAB PO SCH (20:44)
[2016-02-10] MEDS: ENOXAPARIN SODIUM 40 MG/0.4 ML SYRINGE SQ SCH (20:45)
[2016-02-10 21:13] VITALS: BP 101/77; PULSE 71; RESP 18; TEMP 97.5; O2SAT 94
[2016-02-10 23:30] VITALS: BP 116/61; PULSE 69; RESP 18; TEMP 97.7; O2SAT 99
[2016-02-11 00:42] VITALS: BP 97/62; PULSE 72; RESP 18; TEMP 97.9; O2SAT 94
[2016-02-11 04:00] VITALS: BP 119/74; PULSE 80; RESP 18; TEMP 98; O2SAT 95
[2016-02-11] MEDS: ACETAMINOPHEN 325MG/HYDROcodone 7.5MG/15ML UDC PO PRN ×2 (06:14→14:12)
[2016-02-11] MEDS: ALPRAZolam 0.5 MG TAB G-TUBE SCH ×3 (06:14→19:57)
[2016-02-11 07:30] VITALS: O2SAT 94
[2016-02-11 08:03] VITALS: BP 104/65; PULSE 86; RESP 16; TEMP 98.5; O2SAT 94
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
[2016-02-11] MEDS: levETIRAcetam 500 MG/5 ML UDC TUBE SCH ×2 (10:03→19:54)
[2016-02-11] MEDS: METOCLOPRAMIDE HCL SYRUP 10 MG/10 ML UDC G-TUBE SCH ×2 (10:03→19:54)
[2016-02-11] MEDS: RANITIDINE HCL SYRUP 150 MG/10 ML UDC G-TUBE SCH ×2 (10:03→19:54)
[2016-02-11] MEDS: SODIUM CHLORIDE 0.9% FLUSH 5 ML FLUSH IVF SCH ×2 (10:04→19:55)
[2016-02-11] MEDS: METOPROLOL TARTRATE 25 MG TAB G-TUBE SCH ×2 (10:04→19:54)
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
[2016-02-11 19:15] VITALS: O2SAT 94
[2016-02-11] MEDS: ESCITALOPRAM OXALATE 20 MG TAB PO SCH (19:54)
[2016-02-11] MEDS: ENOXAPARIN SODIUM 40 MG/0.4 ML SYRINGE SQ SCH (19:58)
[2016-02-11 20:00] VITALS: BP 112/72; PULSE 76; RESP 16; TEMP 97.2; O2SAT 91
[2016-02-12] VITALS (7 sets, daily range): BP systolic 106–135; BP diastolic 63–73; PULSE 73–85; RESP 16–20; TEMP 96–99.5; O2SAT 94–99
[2016-02-12] MEDS: ALPRAZolam 0.5 MG TAB G-TUBE SCH ×3 (05:35→21:34)
[2016-02-12] MEDS: RANITIDINE HCL SYRUP 150 MG/10 ML UDC G-TUBE SCH ×2 (09:00→21:34)
[2016-02-12] MEDS: levETIRAcetam 500 MG/5 ML UDC TUBE SCH ×2 (09:01→21:34)
[2016-02-12] MEDS: ACETAMINOPHEN 325MG/HYDROcodone 7.5MG/15ML UDC PO PRN (09:01)
[2016-02-12] MEDS: METOPROLOL TARTRATE 25 MG TAB G-TUBE SCH ×2 (09:01→21:32)
[2016-02-12] MEDS: METOCLOPRAMIDE HCL SYRUP 10 MG/10 ML UDC G-TUBE SCH ×2 (09:01→21:33)
[2016-02-12] MEDS: fentaNYL 25 MCG/HR PATCH TD SCH (09:02)
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
[2016-02-12] MEDS: SODIUM CHLORIDE 0.9% FLUSH 5 ML FLUSH IVF SCH ×2 (09:12→21:34)
[2016-02-12] MEDS: REMOVE OLD PATCH TD SCH (11:00)
[2016-02-12] MEDS: ESCITALOPRAM OXALATE 20 MG TAB PO SCH (21:34)
[2016-02-12] MEDS: ENOXAPARIN SODIUM 40 MG/0.4 ML SYRINGE SQ SCH (21:35)
[2016-02-13] VITALS (8 sets, daily range): BP systolic 100–107; BP diastolic 57–62; PULSE 77–82; RESP 16–21; TEMP 96–97.5; O2SAT 93–97
[2016-02-13] MEDS: ALPRAZolam 0.5 MG TAB G-TUBE SCH ×3 (05:48→21:36)
[2016-02-13] MEDS: METOPROLOL TARTRATE 25 MG TAB G-TUBE SCH ×2 (08:55→21:00)
[2016-02-13] MEDS: levETIRAcetam 500 MG/5 ML UDC TUBE SCH ×2 (09:04→21:30)
[2016-02-13] MEDS: SODIUM CHLORIDE 0.9% FLUSH 5 ML FLUSH IVF SCH ×2 (09:04→21:31)
[2016-02-13] MEDS: METOCLOPRAMIDE HCL SYRUP 10 MG/10 ML UDC G-TUBE SCH ×2 (09:04→21:30)
[2016-02-13] MEDS: RANITIDINE HCL SYRUP 150 MG/10 ML UDC G-TUBE SCH ×2 (09:04→21:31)
[2016-02-13] MEDS: ACETAMINOPHEN 325MG/HYDROcodone 7.5MG/15ML UDC PO PRN ×2 (09:15→19:46)
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
[2016-02-13] MEDS: ESCITALOPRAM OXALATE 20 MG TAB PO SCH (21:00)
[2016-02-13] MEDS: ENOXAPARIN SODIUM 40 MG/0.4 ML SYRINGE SQ SCH (21:35)
[2016-02-14] VITALS (9 sets, daily range): BP systolic 98–119; BP diastolic 53–66; PULSE 58–137; RESP 16–24; TEMP 96.9–99.6; O2SAT 93–99
[2016-02-14] MEDS: ACETAMINOPHEN 325MG/HYDROcodone 7.5MG/15ML UDC PO PRN ×2 (04:09→10:21)
[2016-02-14] MEDS: ALPRAZolam 0.5 MG TAB G-TUBE SCH ×2 (06:39→13:51)
[2016-02-14] MEDS: levETIRAcetam 500 MG/5 ML UDC TUBE SCH ×2 (08:44→21:00)
[2016-02-14] MEDS: METOPROLOL TARTRATE 25 MG TAB G-TUBE SCH ×2 (08:44→23:25)
[2016-02-14] MEDS: RANITIDINE HCL SYRUP 150 MG/10 ML UDC G-TUBE SCH (08:44)
[2016-02-14] MEDS: METOCLOPRAMIDE HCL SYRUP 10 MG/10 ML UDC G-TUBE SCH ×2 (08:44→21:00)
[2016-02-14] MEDS: SODIUM CHLORIDE 0.9% FLUSH 5 ML FLUSH IVF SCH ×2 (08:45→23:26)
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
[2016-02-14] MEDS ORDERED: ONDANSETRON ODT 4 MG TAB PO ONE (12:45)
[2016-02-14 12:49] LABS: HEMATOCRIT 32.6 % (39.0-51.0); MEAN CORPUSCULAR HEMOGLOBIN 31.6 PG (27.0-34.0); MEAN CORPUSCULAR HGB CONC 33.6 % (32.0-36.0); PLATELET COUNT 367 TH/MM3 (150-450); RED BLOOD COUNT 3.47 MIL/MM3 (4.50-5.90); RED CELL DISTRIBUTION WIDTH 15.2 % (11.6-17.2); REVIEW FLAG FINAL; WHITE BLOOD COUNT 10.1 TH/MM3 (4.0-11.0)
[2016-02-14 13:42] LABS: BICARBONATE 34.4 MEQ/L (21.0-32.0)
[2016-02-14 13:43] LABS: POTASSIUM 4.9 MEQ/L (3.5-5.1)
[2016-02-14] MEDS: PANTOPRAZOLE SOD 40 MG DELAYED RELEASE TAB PO SCH (13:51)
[2016-02-14] MEDS ORDERED: FUROSEMIDE 40 MG/4 ML VIAL IV PUSH ONE (16:45)
[2016-02-14 16:58] LABS: BLOOD GAS BASE EXCESS 6.1 mmol/L (-2-2); BLOOD GAS CARBOXYHEMOGLOBIN 1.4 % (0-4); BLOOD GAS HCO3 31 mmol/L (22-26); BLOOD GAS METHEMOGLOBIN 0.7 % (0-2); BLOOD GAS O2 HGB SATURATION 94 % (90-100); BLOOD GAS OXYGEN CONTENT 14.8 Vol % (12.0-20.0); BLOOD GAS PCO2 48 mmHg (38-42); BLOOD GAS PO2 80 mmHg (61-120); BLOOD GAS TOTAL HGB 11.2 G/DL (12.0-16.0); CRITICAL VALUE NO; DRAW SITE RT RADIAL; LITER FLOW 5 L/M; NUMBER OF ARTERIAL PUNCTURES 1; OXYGEN DEVICE SIMPLE MASK; STAT YES; TEMP CORR TO 98.6; ULNAR PULSE PRESENT
[2016-02-14] MEDS: SODIUM CHLORIDE 0.9% FLUSH 5 ML FLUSH IVF PRN (17:17)
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
[2016-02-14] MEDS ORDERED: LEVOFLOXACIN 750 MG PREMIX INJ 150 ML IV SCH (21:00)
[2016-02-14] MEDS: ENOXAPARIN SODIUM 40 MG/0.4 ML SYRINGE SQ SCH (22:00)
[2016-02-15] VITALS (13 sets, daily range): BP systolic 93–120; BP diastolic 51–70; PULSE 80–102; RESP 19–21; TEMP 95.6–98.9; O2SAT 91–97
[2016-02-15 00:05] LABS: ANION GAP 8 MEQ/L (5-15); BICARBONATE 32.1 MEQ/L (21.0-32.0); BLOOD UREA NITROGEN 34 MG/DL (7-18); CHLORIDE 91 MEQ/L (98-107); GLOMERULAR FILTRATION RATE 80 ML/MIN (>89); POTASSIUM 4.6 MEQ/L (3.5-5.1); SODIUM (NA) 131 MEQ/L (136-145)
[2016-02-15] MEDS: ACETAMINOPHEN 325MG/HYDROcodone 7.5MG/15ML UDC PO PRN ×3 (01:12→14:03)
[2016-02-15] MEDS: SODIUM CHLORIDE 0.9% FLUSH 5 ML FLUSH IVF PRN ×2 (01:12→07:04)
[2016-02-15] MEDS: ONDANSETRON HCL 4 MG/2 ML VIAL IV PRN ×4 (01:12→20:44)
[2016-02-15 06:31] LABS: MEAN CELL VOLUME 93.7 FL (80.0-100.0); MEAN CORPUSCULAR HEMOGLOBIN 32.5 PG (27.0-34.0); MEAN CORPUSCULAR HGB CONC 34.7 % (32.0-36.0); PLATELET COUNT 325 TH/MM3 (150-450); RED BLOOD COUNT 3.42 MIL/MM3 (4.50-5.90); REVIEW FLAG FINAL
[2016-02-15 06:50] LABS: MAGNESIUM 1.9 MG/DL (1.5-2.5)
[2016-02-15] MEDS: SODIUM CHLORIDE 0.9% FLUSH 5 ML FLUSH IVF SCH ×2 (09:00→20:28)
[2016-02-15] MEDS: fentaNYL 25 MCG/HR PATCH TD SCH (09:00)
[2016-02-15] MEDS: PROMETHAZINE INJ 25 MG/ML VIAL IM PRN (09:45)
[2016-02-15] MEDS: REMOVE OLD PATCH TD SCH (10:19)
[2016-02-15] MEDS ORDERED: PIPERACIL-TAZO 4.5 GM PREMIX 100 ML IV SCH (11:00)
[2016-02-15] MEDS: METOCLOPRAMIDE HCL SYRUP 10 MG/10 ML UDC G-TUBE SCH ×2 (11:44→20:28)
[2016-02-15] MEDS: ONDANSETRON ODT 4 MG TAB PO SCH ×2 (11:44→16:14)
[2016-02-15] MEDS: PANTOPRAZOLE SOD 40 MG DELAYED RELEASE TAB PO SCH ×2 (11:44→20:29)
[2016-02-15] MEDS: levETIRAcetam 500 MG/5 ML UDC TUBE SCH ×2 (11:44→20:28)
[2016-02-15] MEDS: METOPROLOL TARTRATE 25 MG TAB G-TUBE SCH ×2 (11:44→20:29)
--- NOTE | 2016-02-15 12:15 | EKG ---
Date Performed: 02/14/2016 Time Performed: 16:39:56 PTAGE: 75 years EKG: Sinus tachycardia. Extensive ST-T changes may be due to myocardial ischemia Abnormal ECG PREVIOUS TRACING : 01/03/2016 20.05 Compared to the previous tracing, ST and ST-T changes pres ent DOCTOR: George Chisholm Interpretating Date/Time 02/15/2016 12:15:26
[2016-02-15] MEDS: cefTRIAXone INJ 1,000 MG in SODIUM CHLORIDE 0.9% INJ 100 ML IV SCH (12:58)
--- NOTE | 2016-02-15 12:59 | RADRPT ---
EXAM DATE/TIME: 02/15/2016 10:40 [facility] COMPARISON: CT ABDOMEN & PELVIS W CONTRAST, February 01, 2016, 16:25. ABDOMEN KUB ONLY, January 20, 2016, 10:34. INDICATIONS : Nausea MEDICAL HISTORY : None. SURGICAL HISTORY : exploratory, 17 in. of colon removed ENCOUNTER: Initial ACUITY: 1 day PAIN SCORE: Non-responsive. LOCATION: Bilateral abdomen FINDINGS: Gas is noted throughout the GI tract. There are several air-filled loops of small bowel which are mil dly distended. Gastrojejunostomy tube is stable in position. There is no evidence of free air or mass effect. CONCLUSION: Nonspecific gas pattern without evidence of pathologic distention, free air or mass effect. Gastrojejunostomy tube in place. David Dela Cruz MD on February 15, 2016 at 12:55 Board Certified Radiologist. This report was verified electronically.
[2016-02-15] MEDS ORDERED: DOCUSATE SODIUM 100 MG CAP PO SCH (13:00)
[2016-02-15] MEDS ORDERED: LACTULOSE SYRUP 20 GM/30 ML CUP PO ONE (13:00)
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
[2016-02-15 13:16] LABS: ALKALINE PHOSPHATASE 112 U/L (45-117); ALT (GPT) 12 U/L (12-78); ANION GAP 3 MEQ/L (5-15); AST (GOT) 10 U/L (15-37); BICARBONATE 35.7 MEQ/L (21.0-32.0); BLOOD UREA NITROGEN 43 MG/DL (7-18); CHLORIDE 91 MEQ/L (98-107); GLOMERULAR FILTRATION RATE 81 ML/MIN (>89); POTASSIUM 5.5 MEQ/L (3.5-5.1); SODIUM (NA) 130 MEQ/L (136-145); TOTAL BILIRUBIN ADULT 0.7 MG/DL (0.2-1.0)
[2016-02-15] MEDS: SENNOSIDES 8.6 MG TAB PO SCH (13:57)
[2016-02-15] MEDS ORDERED: SODIUM POLYSTYRENE SULFONATE SUSP 15 GM/60 ML CUP GT ONE (15:45)
[2016-02-15] MEDS: DEXT 5%-NACL 0.9% 1000 ML INJ 1,000 ML IV SCH (16:14)
[2016-02-15 17:20] LABS: HEMOGLOBIN A1a 1.1 %; HEMOGLOBIN A1b 0.8 %; HEMOGLOBIN P3 5.5 %
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
[2016-02-15] MEDS: DOCUSATE SODIUM 100 MG CAP PO SCH (20:29)
[2016-02-15] MEDS: ENOXAPARIN SODIUM 40 MG/0.4 ML SYRINGE SQ SCH (20:51)
[2016-02-15] MEDS ORDERED: DOCUSATE SODIUM 100 MG/10 ML UDC PO SCH (21:00)
[2016-02-16] VITALS (9 sets, daily range): BP systolic 81–122; BP diastolic 50–72; PULSE 80–91; RESP 13–18; TEMP 95.9–97.6; O2SAT 91–98
[2016-02-16] MEDS: DEXT 5%-NACL 0.9% 1000 ML INJ 1,000 ML IV SCH (05:10)
[2016-02-16] MEDS: ONDANSETRON HCL 4 MG/2 ML VIAL IV PRN (05:11)
[2016-02-16] MEDS: ACETAMINOPHEN 325MG/HYDROcodone 7.5MG/15ML UDC PO PRN ×3 (05:14→19:56)
[2016-02-16 06:01] LABS: MAGNESIUM 2.1 MG/DL (1.5-2.5); POTASSIUM 4.1 MEQ/L (3.5-5.1)
[2016-02-16] MEDS: SODIUM CHLORIDE 0.9% FLUSH 5 ML FLUSH IVF SCH ×2 (09:00→19:57)
[2016-02-16] MEDS: DOCUSATE SODIUM 100 MG CAP PO SCH ×2 (09:00→19:57)
[2016-02-16] MEDS: SENNOSIDES 8.6 MG TAB PO SCH (09:00)
[2016-02-16] MEDS: PANTOPRAZOLE SOD 40 MG DELAYED RELEASE TAB PO SCH ×2 (09:14→19:58)
[2016-02-16] MEDS: METOCLOPRAMIDE HCL SYRUP 10 MG/10 ML UDC G-TUBE SCH ×2 (09:14→19:56)
[2016-02-16] MEDS: levETIRAcetam 500 MG/5 ML UDC TUBE SCH ×2 (09:14→19:56)
[2016-02-16] MEDS: ONDANSETRON ODT 4 MG TAB PO SCH ×3 (09:14→16:42)
[2016-02-16] MEDS: METOPROLOL TARTRATE 25 MG TAB G-TUBE SCH ×2 (09:14→21:00)
[2016-02-16] MEDS: cefTRIAXone INJ 1,000 MG in SODIUM CHLORIDE 0.9% INJ 100 ML IV SCH (11:36)
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
[2016-02-16] MEDS: ALPRAZolam 0.25 MG TAB G-TUBE PRN (19:56)
[2016-02-16] MEDS: ENOXAPARIN SODIUM 40 MG/0.4 ML SYRINGE SQ SCH (21:58)
[2016-02-17] VITALS (9 sets, daily range): BP systolic 114–163; BP diastolic 66–86; PULSE 79–87; RESP 14–18; TEMP 95.4–98.4; O2SAT 93–98
[2016-02-17] MEDS: ACETAMINOPHEN 325MG/HYDROcodone 7.5MG/15ML UDC PO PRN ×3 (05:32→21:39)
[2016-02-17] MEDS: ALPRAZolam 0.25 MG TAB G-TUBE PRN (05:32)
[2016-02-17 08:02] LABS: HEMATOCRIT 27.4 % (39.0-51.0); MEAN CELL VOLUME 94.9 FL (80.0-100.0); MEAN CORPUSCULAR HGB CONC 33.7 % (32.0-36.0); PLATELET COUNT 321 TH/MM3 (150-450); RED BLOOD COUNT 2.89 MIL/MM3 (4.50-5.90); RED CELL DISTRIBUTION WIDTH 15.6 % (11.6-17.2); REVIEW FLAG FINAL; WHITE BLOOD COUNT 5.2 TH/MM3 (4.0-11.0)
[2016-02-17] MEDS: METOCLOPRAMIDE HCL SYRUP 10 MG/10 ML UDC G-TUBE SCH ×2 (08:16→21:39)
[2016-02-17] MEDS: SENNOSIDES 8.6 MG TAB PO SCH (08:16)
[2016-02-17] MEDS: levETIRAcetam 500 MG/5 ML UDC TUBE SCH ×2 (08:16→21:39)
[2016-02-17] MEDS: PANTOPRAZOLE SOD 40 MG DELAYED RELEASE TAB PO SCH ×2 (08:17→21:40)
[2016-02-17] MEDS: ONDANSETRON ODT 4 MG TAB PO SCH ×3 (08:17→17:48)
[2016-02-17] MEDS: METOPROLOL TARTRATE 25 MG TAB G-TUBE SCH ×2 (08:17→21:40)
[2016-02-17 08:29] LABS: BICARBONATE 35.7 MEQ/L (21.0-32.0); MAGNESIUM 1.9 MG/DL (1.5-2.5); POTASSIUM 3.8 MEQ/L (3.5-5.1)
[2016-02-17] MEDS: DOCUSATE SODIUM 100 MG CAP PO SCH ×2 (09:00→21:40)
[2016-02-17] MEDS: SODIUM CHLORIDE 0.9% FLUSH 5 ML FLUSH IVF SCH ×2 (09:00→21:40)
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
[2016-02-17] MEDS: cefTRIAXone INJ 1,000 MG in SODIUM CHLORIDE 0.9% INJ 100 ML IV SCH (13:16)
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
[2016-02-17] MEDS: ONDANSETRON HCL 4 MG/2 ML VIAL IV PRN (21:35)
[2016-02-17] MEDS: ENOXAPARIN SODIUM 40 MG/0.4 ML SYRINGE SQ SCH (21:40)
[2016-02-18] VITALS (10 sets, daily range): BP systolic 134–174; BP diastolic 72–94; PULSE 79–95; RESP 18–20; TEMP 97–98.7; O2SAT 92–97
[2016-02-18] MEDS ORDERED: HYDROmorphone HCL PF 1 MG/ML VIAL IV PUSH ONE (02:45)
[2016-02-18] MEDS: ACETAMINOPHEN 325MG/HYDROcodone 7.5MG/15ML UDC PO PRN ×3 (06:22→20:49)
[2016-02-18] MEDS: ONDANSETRON HCL 4 MG/2 ML VIAL IV PRN ×3 (06:23→20:53)
[2016-02-18] MEDS: levETIRAcetam 500 MG/5 ML UDC TUBE SCH ×2 (08:11→20:50)
[2016-02-18] MEDS: ONDANSETRON ODT 4 MG TAB PO SCH ×3 (08:12→18:32)
[2016-02-18] MEDS: METOCLOPRAMIDE HCL SYRUP 10 MG/10 ML UDC G-TUBE SCH ×2 (08:12→20:50)
[2016-02-18] MEDS: PANTOPRAZOLE SOD 40 MG DELAYED RELEASE TAB PO SCH ×2 (08:12→20:51)
[2016-02-18] MEDS: SENNOSIDES 8.6 MG TAB PO SCH (08:12)
[2016-02-18] MEDS: METOPROLOL TARTRATE 25 MG TAB G-TUBE SCH ×2 (08:13→21:00)
[2016-02-18] MEDS: SODIUM CHLORIDE 0.9% FLUSH 5 ML FLUSH IVF SCH ×2 (08:15→21:00)
[2016-02-18] MEDS: fentaNYL 25 MCG/HR PATCH TD SCH (08:15)
[2016-02-18] MEDS: DOCUSATE SODIUM 100 MG CAP PO SCH ×2 (09:00→20:51)
[2016-02-18] MEDS: REMOVE OLD PATCH TD SCH (10:45)
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
[2016-02-18 12:46] LABS: AUTOMATED NEUTROPHIL # 3.3 TH/MM3 (1.8-7.7); BASOPHIL % 0.4 % (0.0-2.0); EOSINOPHIL # 0.1 TH/MM3 (0-0.4); EOSINOPHIL % 1.2 % (0.0-4.0); HEMATOCRIT 28.9 % (39.0-51.0); HEMO FLAGS DIFF FINAL; LYMPH % 31.9 % (9.0-44.0); LYMPHOCYTE # 1.8 TH/MM3 (1.0-4.8); MEAN CELL VOLUME 94.1 FL (80.0-100.0); MEAN CORPUSCULAR HEMOGLOBIN 32.4 PG (27.0-34.0); MEAN CORPUSCULAR HGB CONC 34.4 % (32.0-36.0); MONO % 7.9 % (0.0-8.0); NEUT % 58.6 % (16.0-70.0); PLATELET COUNT 367 TH/MM3 (150-450); RED BLOOD COUNT 3.07 MIL/MM3 (4.50-5.90); RED CELL DISTRIBUTION WIDTH 15.3 % (11.6-17.2); WHITE BLOOD COUNT 5.6 TH/MM3 (4.0-11.0)
[2016-02-18] MEDS: cefTRIAXone INJ 1,000 MG in SODIUM CHLORIDE 0.9% INJ 100 ML IV SCH (12:56)
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
[2016-02-18] MEDS: HYDROmorphone HCL PF 1 MG/ML VIAL IV PUSH PRN (18:33)
[2016-02-18] MEDS: ALPRAZolam 0.25 MG TAB G-TUBE PRN (20:51)
[2016-02-18] MEDS: ENOXAPARIN SODIUM 40 MG/0.4 ML SYRINGE SQ SCH (20:53)
[2016-02-19] VITALS (8 sets, daily range): BP systolic 128–158; BP diastolic 78–95; PULSE 86–94; RESP 16–20; TEMP 97.9–99.1; O2SAT 94–99
[2016-02-19] MEDS: HYDROmorphone HCL PF 1 MG/ML VIAL IV PUSH PRN ×3 (01:16→18:28)
[2016-02-19] MEDS: ALPRAZolam 0.25 MG TAB G-TUBE PRN ×2 (04:42→22:05)
[2016-02-19] MEDS: ACETAMINOPHEN 325MG/HYDROcodone 7.5MG/15ML UDC PO PRN (04:42)
[2016-02-19] MEDS: ONDANSETRON HCL 4 MG/2 ML VIAL IV PRN ×3 (04:42→18:29)
[2016-02-19] MEDS: DOCUSATE SODIUM 100 MG CAP PO SCH ×2 (09:00→21:00)
[2016-02-19] MEDS: PANTOPRAZOLE SOD 40 MG DELAYED RELEASE TAB PO SCH ×2 (09:55→22:03)
[2016-02-19] MEDS: METOPROLOL TARTRATE 25 MG TAB G-TUBE SCH ×2 (09:55→22:04)
[2016-02-19] MEDS: ONDANSETRON ODT 4 MG TAB PO SCH ×3 (09:58→18:00)
[2016-02-19] MEDS: METOCLOPRAMIDE HCL SYRUP 10 MG/10 ML UDC G-TUBE SCH ×2 (09:58→22:03)
[2016-02-19] MEDS: levETIRAcetam 500 MG/5 ML UDC TUBE SCH ×2 (09:58→22:03)
[2016-02-19] MEDS: SENNOSIDES 8.6 MG TAB PO SCH (09:58)
[2016-02-19] MEDS: SODIUM CHLORIDE 0.9% FLUSH 5 ML FLUSH IVF SCH ×2 (09:59→22:04)
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
[2016-02-19] MEDS: cefTRIAXone INJ 1,000 MG in SODIUM CHLORIDE 0.9% INJ 100 ML IV SCH (12:18)
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
[2016-02-19] MEDS: ENOXAPARIN SODIUM 40 MG/0.4 ML SYRINGE SQ SCH (22:00)
[2016-02-20] VITALS (9 sets, daily range): BP systolic 133–165; BP diastolic 76–92; PULSE 83–97; RESP 16–20; TEMP 96.9–97.9; O2SAT 91–97
[2016-02-20] MEDS: ACETAMINOPHEN 325MG/HYDROcodone 7.5MG/15ML UDC PO PRN ×3 (04:40→22:05)
[2016-02-20] MEDS: ONDANSETRON HCL 4 MG/2 ML VIAL IV PRN (04:40)
[2016-02-20] MEDS: DOCUSATE SODIUM 100 MG CAP PO SCH ×2 (09:00→21:00)
[2016-02-20] MEDS: SODIUM CHLORIDE 0.9% FLUSH 5 ML FLUSH IVF SCH ×2 (09:00→22:07)
[2016-02-20] MEDS: PANTOPRAZOLE SOD 40 MG DELAYED RELEASE TAB PO SCH ×2 (09:11→22:06)
[2016-02-20] MEDS: ONDANSETRON ODT 4 MG TAB PO SCH ×3 (09:11→17:02)
[2016-02-20] MEDS: SENNOSIDES 8.6 MG TAB PO SCH (09:11)
[2016-02-20] MEDS: METOPROLOL TARTRATE 25 MG TAB G-TUBE SCH ×2 (09:11→22:06)
[2016-02-20] MEDS: ALPRAZolam 0.25 MG TAB G-TUBE PRN (09:11)
[2016-02-20] MEDS: METOCLOPRAMIDE HCL SYRUP 10 MG/10 ML UDC G-TUBE SCH ×2 (09:12→22:06)
[2016-02-20] MEDS: levETIRAcetam 500 MG/5 ML UDC TUBE SCH ×2 (09:12→22:05)
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
[2016-02-20] MEDS: cefTRIAXone INJ 1,000 MG in SODIUM CHLORIDE 0.9% INJ 100 ML IV SCH (15:35)
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
[2016-02-20] MEDS: ENOXAPARIN SODIUM 40 MG/0.4 ML SYRINGE SQ SCH (22:06)
[2016-02-21] VITALS (9 sets, daily range): BP systolic 113–149; BP diastolic 64–87; PULSE 65–90; RESP 18–20; TEMP 96–98.5; O2SAT 93–97
[2016-02-21] MEDS: ACETAMINOPHEN 325MG/HYDROcodone 7.5MG/15ML UDC PO PRN ×2 (04:00→19:52)
[2016-02-21] MEDS: ACETAMINOPHEN 650 MG/20.3 ML UDC J-TUBE PRN (06:23)
[2016-02-21] MEDS: ALPRAZolam 0.25 MG TAB G-TUBE PRN (06:23)
[2016-02-21] MEDS: SENNOSIDES 8.6 MG TAB PO SCH (08:44)
[2016-02-21] MEDS: DOCUSATE SODIUM 100 MG CAP PO SCH ×2 (08:45→19:52)
[2016-02-21] MEDS: METOPROLOL TARTRATE 25 MG TAB G-TUBE SCH ×2 (08:45→19:52)
[2016-02-21] MEDS: ONDANSETRON ODT 4 MG TAB PO SCH ×3 (08:46→16:32)
[2016-02-21] MEDS: PANTOPRAZOLE SOD 40 MG DELAYED RELEASE TAB PO SCH ×2 (08:46→19:52)
[2016-02-21] MEDS: METOCLOPRAMIDE HCL SYRUP 10 MG/10 ML UDC G-TUBE SCH ×2 (08:46→19:52)
[2016-02-21] MEDS: levETIRAcetam 500 MG/5 ML UDC TUBE SCH ×2 (08:46→19:52)
[2016-02-21] MEDS: SODIUM CHLORIDE 0.9% FLUSH 5 ML FLUSH IVF SCH ×2 (08:47→19:53)
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
[2016-02-21] MEDS: fentaNYL 25 MCG/HR PATCH TD SCH (09:13)
[2016-02-21] MEDS: REMOVE OLD PATCH TD SCH (09:14)
[2016-02-21] MEDS ORDERED: INFLUENZA VIRUS VACCINE (QUADRIVALENT) 0.5 ML SYR IM ONE (10:00)
[2016-02-21] MEDS: cefTRIAXone INJ 1,000 MG in SODIUM CHLORIDE 0.9% INJ 100 ML IV SCH (12:55)
[2016-02-21] MEDS: ONDANSETRON HCL 4 MG/2 ML VIAL IV PRN (16:42)
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
[2016-02-22] VITALS (9 sets, daily range): BP systolic 117–149; BP diastolic 75–88; PULSE 82–94; RESP 15–20; TEMP 96.5–97.5; O2SAT 90–98
[2016-02-22] MEDS: ENOXAPARIN SODIUM 40 MG/0.4 ML SYRINGE SQ SCH ×2 (01:57→21:32)
[2016-02-22] MEDS: METOPROLOL TARTRATE 25 MG TAB G-TUBE SCH ×2 (08:23→21:32)
[2016-02-22] MEDS: ACETAMINOPHEN 325MG/HYDROcodone 7.5MG/15ML UDC PO PRN (08:23)
[2016-02-22] MEDS: METOCLOPRAMIDE HCL SYRUP 10 MG/10 ML UDC G-TUBE SCH ×2 (08:23→21:32)
[2016-02-22] MEDS: PANTOPRAZOLE SOD 40 MG DELAYED RELEASE TAB PO SCH ×2 (08:23→21:32)
[2016-02-22] MEDS: ONDANSETRON ODT 4 MG TAB PO SCH ×3 (08:23→17:14)
[2016-02-22] MEDS: SENNOSIDES 8.6 MG TAB PO SCH (08:23)
[2016-02-22] MEDS: levETIRAcetam 500 MG/5 ML UDC TUBE SCH ×2 (08:23→21:32)
[2016-02-22] MEDS: DOCUSATE SODIUM 100 MG CAP PO SCH ×2 (08:24→21:00)
[2016-02-22] MEDS: SODIUM CHLORIDE 0.9% FLUSH 5 ML FLUSH IVF SCH ×2 (08:24→20:44)
--- NOTE | 2016-02-22 11:16 | HHI.PYPN ---
Subjective Remarks Patient was examined and reevaluated today by psychiatry. Chart was reviewed, case was discussed with nursing staff.. On evaluation patient reports good mood , he is hopeful that things are going to get better, is reasonably able to continue regular treatment and recommendations and is reasonably able to go back to take care of his adopted twins. Patient denies anhedonia, denies hopelessness, helplessness, problems with concentration, level of energy, he denies suicidal and homicidal ideation. He expresses that he has too many things to live for. However, he says that at times he is frustrated with the pain and lack of attention and he has verbalized that he preferred to be , but he doesn't really mean that. Patient denies episodes of confusion, problems with memory, paranoia, delusions, anxiety, and also he denies perceptual disturbances such as auditory or visual hallucinations. Patient is definitely future oriented and there is no evidence of suicidal ideation, thoughts, behavior, patient is well oriented 3. Review of Systems Gastrointestinal: COMPLAINS OF: Abdominal pain Musculoskeletal: COMPLAINS OF: Back pain Objective Alert: Yes [place]: Person, Place, Date, Situation Mood: Calm Affect: Euthymic, Other Memory Intact: Immediate, Recent, Comment Hallucinations: Other (does not appear internally stimulated) Delusions: No Delusion Type: Other (no kamari delusions) Suicidal: Ideation (denies SI) Homicidal: Ideation (does not describe any HI) Insight/Judgement Good Vitals/IOs Vital Signs Date Time Temp Pulse Resp B/P Pulse Ox O2 Delivery O2 Flow Rate FiO2 02/22/16 09:02 Nasal Cannula 2.00 28 02/22/16 08:00 96.5 88 20 149/84 97 Intake and Output 02/21/16 02/21/16 02/22/16 08:00 16:00 00:00 Intake Total 278 ml 0 ml 0 ml Output Total 225 ml 250 ml Balance 278 ml -225 ml -250 ml Problem List: (1) Suicide attempt Assessment & Plan: On evaluation today she does not present any acute, concerning, or evidence acute psychiatric symptoms that requires an immediate psychiatric intervention. Patient denies depression, anxiety, zo, perceptual disturbances. Patient is future oriented, hopeful, with reported protective factors. He denies suicidal and homicidal ideation. He does not meet one-to-one sitter at this moment. Constant observation can be discontinue. No psychotropics recommended at this moment. Support, psychoeducation, motivation provided. We are signing off. Reconsult if needed. ICD Code: T14.91 Assessment & Plan Estimated LOS: days Request HC Surrog/Guard Advoc?: No Chris Mosley MD Feb 22, 2016 11:16
[2016-02-22] MEDS: cefTRIAXone INJ 1,000 MG in SODIUM CHLORIDE 0.9% INJ 100 ML IV SCH (12:43)
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
[2016-02-22] MEDS: HYDROmorphone HCL PF 1 MG/ML VIAL IV PUSH PRN (20:43)
[2016-02-23] VITALS (8 sets, daily range): BP systolic 114–138; BP diastolic 69–82; PULSE 84–95; RESP 16–20; TEMP 96–98.4; O2SAT 93–98
[2016-02-23] MEDS: DOCUSATE SODIUM 100 MG CAP PO SCH ×2 (09:00→21:00)
[2016-02-23] MEDS: SENNOSIDES 8.6 MG TAB PO SCH (09:00)
[2016-02-23] MEDS: levETIRAcetam 500 MG/5 ML UDC TUBE SCH ×2 (09:02→21:24)
[2016-02-23] MEDS: METOCLOPRAMIDE HCL SYRUP 10 MG/10 ML UDC G-TUBE SCH ×2 (09:02→21:23)
[2016-02-23] MEDS: METOPROLOL TARTRATE 25 MG TAB G-TUBE SCH ×2 (09:03→21:22)
[2016-02-23] MEDS: SODIUM CHLORIDE 0.9% FLUSH 5 ML FLUSH IVF SCH ×2 (09:03→21:26)
[2016-02-23] MEDS: ONDANSETRON ODT 4 MG TAB PO SCH ×3 (09:03→18:25)
[2016-02-23] MEDS: cefTRIAXone INJ 1,000 MG in SODIUM CHLORIDE 0.9% INJ 100 ML IV SCH (13:25)
[2016-02-23] MEDS: ONDANSETRON HCL 4 MG/2 ML VIAL IV PRN (13:26)
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
[2016-02-23] MEDS: ACETAMINOPHEN 325MG/HYDROcodone 7.5MG/15ML UDC PO PRN (18:14)
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
[2016-02-23] MEDS ORDERED: FAMOTIDINE 20 MG TAB PO SCH (21:00)
[2016-02-23] MEDS: ENOXAPARIN SODIUM 40 MG/0.4 ML SYRINGE SQ SCH (21:25)
[2016-02-24] VITALS (9 sets, daily range): BP systolic 109–144; BP diastolic 65–81; PULSE 76–87; RESP 16–20; TEMP 96–97.6; O2SAT 95–98
[2016-02-24] MEDS: ACETAMINOPHEN 325MG/HYDROcodone 7.5MG/15ML UDC PO PRN ×3 (05:32→21:46)
[2016-02-24] MEDS: SODIUM CHLORIDE 0.9% FLUSH 5 ML FLUSH IVF SCH ×3 (09:00→22:00)
[2016-02-24] MEDS: SENNOSIDES 8.6 MG TAB PO SCH (09:00)
[2016-02-24] MEDS: DOCUSATE SODIUM 100 MG CAP PO SCH ×3 (09:00→22:00)
[2016-02-24] MEDS: levETIRAcetam 500 MG/5 ML UDC TUBE SCH ×3 (09:21→22:00)
[2016-02-24] MEDS: LANSOPRAZOLE SOLUTAB 30 MG TAB NG SCH (09:21)
[2016-02-24] MEDS: METOCLOPRAMIDE HCL SYRUP 10 MG/10 ML UDC G-TUBE SCH ×3 (09:21→22:00)
[2016-02-24] MEDS: METOPROLOL TARTRATE 25 MG TAB G-TUBE SCH ×2 (09:21→21:00)
[2016-02-24] MEDS: ONDANSETRON ODT 4 MG TAB PO SCH ×3 (09:22→16:38)
[2016-02-24] MEDS: REMOVE OLD PATCH TD SCH (09:44)
[2016-02-24] MEDS: fentaNYL 25 MCG/HR PATCH TD SCH (09:44)
[2016-02-24] MEDS: cefTRIAXone INJ 1,000 MG in SODIUM CHLORIDE 0.9% INJ 100 ML IV SCH (13:42)
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
[2016-02-24] MEDS: ENOXAPARIN SODIUM 40 MG/0.4 ML SYRINGE SQ SCH (21:34)
[2016-02-24] MEDS: TEMAZEPAM 15 MG CAP PO PRN (23:03)
[2016-02-25] VITALS (9 sets, daily range): BP systolic 102–116; BP diastolic 63–76; PULSE 75–90; RESP 14–18; TEMP 96.4–97.6; O2SAT 92–96
[2016-02-25 07:30] LABS: POTASSIUM 4.6 MEQ/L (3.5-5.1)
[2016-02-25] MEDS: METOCLOPRAMIDE HCL SYRUP 10 MG/10 ML UDC G-TUBE SCH (09:24)
[2016-02-25] MEDS: levETIRAcetam 500 MG/5 ML UDC TUBE SCH (09:24)
[2016-02-25] MEDS: ONDANSETRON ODT 4 MG TAB PO SCH ×3 (09:24→17:57)
[2016-02-25] MEDS: DOCUSATE SODIUM 100 MG CAP PO SCH (09:24)
[2016-02-25] MEDS: SODIUM CHLORIDE 0.9% FLUSH 5 ML FLUSH IVF SCH (09:25)
[2016-02-25] MEDS: SENNOSIDES 8.6 MG TAB PO SCH (09:25)
[2016-02-25] MEDS: METOPROLOL TARTRATE 25 MG TAB G-TUBE SCH ×2 (09:25→22:00)
[2016-02-25] MEDS: LANSOPRAZOLE SOLUTAB 30 MG TAB NG SCH (09:25)
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
[2016-02-25] MEDS: ACETAMINOPHEN 325MG/HYDROcodone 7.5MG/15ML UDC PO PRN ×2 (11:45→17:57)
[2016-02-25] MEDS: ALPRAZolam 0.25 MG TAB G-TUBE PRN (17:57)
[2016-02-25] MEDS: ENOXAPARIN SODIUM 40 MG/0.4 ML SYRINGE SQ SCH (22:00)
[2016-02-25] MEDS: TEMAZEPAM 15 MG CAP PO PRN (22:30)
[2016-02-26] VITALS (9 sets, daily range): BP systolic 87–127; BP diastolic 56–70; PULSE 73–85; RESP 18–20; TEMP 96–98.2; O2SAT 94–99
[2016-02-26] MEDS: levETIRAcetam 500 MG/5 ML UDC TUBE SCH ×2 (08:29→21:57)
[2016-02-26] MEDS: SENNOSIDES 8.6 MG TAB PO SCH (08:30)
[2016-02-26] MEDS: DOCUSATE SODIUM 100 MG CAP PO SCH ×2 (08:30→21:00)
[2016-02-26] MEDS: LANSOPRAZOLE SOLUTAB 30 MG TAB NG SCH (08:30)
[2016-02-26] MEDS: METOCLOPRAMIDE HCL SYRUP 10 MG/10 ML UDC G-TUBE SCH ×2 (08:30→21:57)
[2016-02-26] MEDS: ONDANSETRON ODT 4 MG TAB PO SCH ×3 (08:30→17:35)
[2016-02-26] MEDS: METOPROLOL TARTRATE 25 MG TAB G-TUBE SCH ×2 (08:30→21:00)
[2016-02-26] MEDS: SODIUM CHLORIDE 0.9% FLUSH 5 ML FLUSH IVF SCH ×2 (08:31→21:58)
[2016-02-26] MEDS: ACETAMINOPHEN 325MG/HYDROcodone 7.5MG/15ML UDC PO PRN ×3 (11:31→23:51)
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
[2016-02-26] MEDS: ENOXAPARIN SODIUM 40 MG/0.4 ML SYRINGE SQ SCH (21:57)
[2016-02-26] MEDS: TEMAZEPAM 15 MG CAP PO PRN (23:51)
[2016-02-27] VITALS (10 sets, daily range): BP systolic 103–127; BP diastolic 57–75; PULSE 77–96; RESP 18–20; TEMP 96.6–98.6; O2SAT 95–98
[2016-02-27] MEDS: ACETAMINOPHEN 325MG/HYDROcodone 7.5MG/15ML UDC PO PRN ×3 (06:49→23:31)
[2016-02-27] MEDS: SODIUM CHLORIDE 0.9% FLUSH 5 ML FLUSH IVF SCH ×2 (09:00→20:11)
[2016-02-27] MEDS: DOCUSATE SODIUM 100 MG CAP PO SCH ×2 (09:00→20:11)
[2016-02-27] MEDS: METOPROLOL TARTRATE 25 MG TAB G-TUBE SCH ×2 (09:00→20:10)
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
[2016-02-27] MEDS: REMOVE OLD PATCH TD SCH (11:00)
[2016-02-27] MEDS: levETIRAcetam 500 MG/5 ML UDC TUBE SCH ×2 (11:17→20:10)
[2016-02-27] MEDS: fentaNYL 25 MCG/HR PATCH TD SCH (11:17)
[2016-02-27] MEDS: LANSOPRAZOLE SOLUTAB 30 MG TAB NG SCH (11:18)
[2016-02-27] MEDS: SENNOSIDES 8.6 MG TAB PO SCH (11:18)
[2016-02-27] MEDS: ONDANSETRON ODT 4 MG TAB PO SCH ×4 (11:18→20:11)
[2016-02-27] MEDS: METOCLOPRAMIDE HCL SYRUP 10 MG/10 ML UDC G-TUBE SCH ×2 (11:18→20:10)
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
[2016-02-27] MEDS: ENOXAPARIN SODIUM 40 MG/0.4 ML SYRINGE SQ SCH (21:43)
[2016-02-27] MEDS: ONDANSETRON HCL 4 MG/2 ML VIAL IV PRN (21:43)
[2016-02-27] MEDS: TEMAZEPAM 15 MG CAP PO PRN (23:31)
[2016-02-28] VITALS (10 sets, daily range): BP systolic 93–112; BP diastolic 58–70; PULSE 68–112; RESP 18–22; TEMP 96.4–99.2; O2SAT 92–96
[2016-02-28] MEDS: levETIRAcetam 500 MG/5 ML UDC TUBE SCH ×2 (08:08→22:00)
[2016-02-28] MEDS: METOCLOPRAMIDE HCL SYRUP 10 MG/10 ML UDC G-TUBE SCH ×2 (08:08→22:01)
[2016-02-28] MEDS: DOCUSATE SODIUM 100 MG CAP PO SCH ×2 (08:11→22:01)
[2016-02-28] MEDS: SENNOSIDES 8.6 MG TAB PO SCH (08:11)
[2016-02-28] MEDS: LANSOPRAZOLE SOLUTAB 30 MG TAB NG SCH (08:11)
[2016-02-28] MEDS: SODIUM CHLORIDE 0.9% FLUSH 5 ML FLUSH IVF SCH ×2 (08:11→22:02)
[2016-02-28] MEDS: ACETAMINOPHEN 325MG/HYDROcodone 7.5MG/15ML UDC PO PRN ×2 (08:11→16:44)
[2016-02-28] MEDS: METOPROLOL TARTRATE 25 MG TAB G-TUBE SCH ×2 (08:50→21:00)
[2016-02-28] MEDS: ONDANSETRON ODT 4 MG TAB PO SCH ×2 (11:41→16:43)
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
[2016-02-28] MEDS: ENOXAPARIN SODIUM 40 MG/0.4 ML SYRINGE SQ SCH (22:00)
[2016-02-28] MEDS: TEMAZEPAM 15 MG CAP PO PRN (23:01)
[2016-02-29] VITALS (7 sets, daily range): BP systolic 101–117; BP diastolic 55–68; PULSE 59–108; RESP 18–20; TEMP 96–97.9; O2SAT 93–95
[2016-02-29] MEDS: METOPROLOL TARTRATE 25 MG TAB G-TUBE SCH ×2 (09:00→21:00)
[2016-02-29] MEDS: SENNOSIDES 8.6 MG TAB PO SCH (09:00)
[2016-02-29] MEDS: DOCUSATE SODIUM 100 MG CAP PO SCH ×2 (09:00→21:00)
[2016-02-29] MEDS: ACETAMINOPHEN 325MG/HYDROcodone 7.5MG/15ML UDC PO PRN ×2 (09:47→17:40)
[2016-02-29] MEDS: ONDANSETRON ODT 4 MG TAB PO SCH ×3 (09:48→17:40)
[2016-02-29] MEDS: METOCLOPRAMIDE HCL SYRUP 10 MG/10 ML UDC G-TUBE SCH ×2 (09:48→21:15)
[2016-02-29] MEDS: LANSOPRAZOLE SOLUTAB 30 MG TAB NG SCH (09:48)
[2016-02-29] MEDS: levETIRAcetam 500 MG/5 ML UDC TUBE SCH ×2 (09:49→21:15)
[2016-02-29] MEDS: SODIUM CHLORIDE 0.9% FLUSH 5 ML FLUSH IVF SCH ×2 (09:49→21:17)
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
[2016-02-29] MEDS: ENOXAPARIN SODIUM 40 MG/0.4 ML SYRINGE SQ SCH (21:16)
[2016-02-29] MEDS: TEMAZEPAM 15 MG CAP PO PRN (21:17)
[2016-03-01] VITALS (7 sets, daily range): BP systolic 94–114; BP diastolic 54–67; PULSE 76–87; RESP 16–20; TEMP 96–96.8; O2SAT 94–98
[2016-03-01] MEDS: SENNOSIDES 8.6 MG TAB PO SCH (09:00)
[2016-03-01] MEDS: DOCUSATE SODIUM 100 MG CAP PO SCH ×2 (09:00→21:00)
[2016-03-01] MEDS: METOPROLOL TARTRATE 25 MG TAB G-TUBE SCH ×2 (09:29→21:17)
[2016-03-01] MEDS: ONDANSETRON ODT 4 MG TAB PO SCH ×3 (09:29→16:50)
[2016-03-01] MEDS: levETIRAcetam 500 MG/5 ML UDC TUBE SCH ×2 (09:29→21:23)
[2016-03-01] MEDS: METOCLOPRAMIDE HCL SYRUP 10 MG/10 ML UDC G-TUBE SCH ×2 (09:29→21:16)
[2016-03-01] MEDS: LANSOPRAZOLE SOLUTAB 30 MG TAB NG SCH (09:29)
[2016-03-01] MEDS: ACETAMINOPHEN 325MG/HYDROcodone 7.5MG/15ML UDC PO PRN ×2 (09:29→16:55)
[2016-03-01] MEDS: fentaNYL 25 MCG/HR PATCH TD SCH (09:30)
[2016-03-01] MEDS: SODIUM CHLORIDE 0.9% FLUSH 5 ML FLUSH IVF SCH ×2 (09:30→21:00)
[2016-03-01] MEDS: REMOVE OLD PATCH TD SCH (09:30)
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
[2016-03-01] MEDS: ENOXAPARIN SODIUM 40 MG/0.4 ML SYRINGE SQ SCH (21:17)
[2016-03-02] VITALS (9 sets, daily range): BP systolic 96–115; BP diastolic 55–67; PULSE 65–97; RESP 18–20; TEMP 96.5–98.1; O2SAT 94–98
[2016-03-02] MEDS: SENNOSIDES 8.6 MG TAB PO SCH (09:00)
[2016-03-02] MEDS: DOCUSATE SODIUM 100 MG CAP PO SCH ×2 (09:00→21:00)
[2016-03-02] MEDS: SODIUM CHLORIDE 0.9% FLUSH 5 ML FLUSH IVF SCH ×2 (09:00→21:33)
[2016-03-02] MEDS: ONDANSETRON ODT 4 MG TAB PO SCH ×3 (09:30→18:08)
[2016-03-02] MEDS: LANSOPRAZOLE SOLUTAB 30 MG TAB NG SCH (09:30)
[2016-03-02] MEDS: METOPROLOL TARTRATE 25 MG TAB G-TUBE SCH ×2 (09:30→21:00)
[2016-03-02] MEDS: ACETAMINOPHEN 325MG/HYDROcodone 7.5MG/15ML UDC PO PRN ×3 (09:31→21:36)
[2016-03-02] MEDS: METOCLOPRAMIDE HCL SYRUP 10 MG/10 ML UDC G-TUBE SCH ×2 (09:31→21:33)
[2016-03-02] MEDS: levETIRAcetam 500 MG/5 ML UDC TUBE SCH ×2 (09:31→21:33)
--- NOTE | 2016-03-02 10:54 | HHI.PR ---
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 Left bronchial stent is in place. He has been evaluated multiple times by GI and cardiothoracic surgery, both of whom recommended transfer to tertiary care center. Gastroenterology recommends continuing tube feeds and avoiding oral feeding due to risk of aspiration. Multiple facilities have declined the patient including [facility] and [facility]. Multiple assisted facility also declined the patient. 3. Acute respiratory failure: Improved. Appreciate pulmonology recommendations. Continue duo nebs. 4. Pneumonia: Sputum culture positive for Klebsiella. Completed treatment with Rocephin. 4. Major depression with suicide attempt: Patient has been evaluated by psychiatry and the Vila act was lifted. Not currently on antidepressants. Patient apparently made suicidal statements and was evaluated by Dr. Pastor. He does not believe that the patient is suicidal. Depressed mood is secondary to adjustment disorder due to medical problems, specifically pain. If depressed mood continues, may consider Cymbalta. Patient cleared by psych to remove sitter. 5. Hypertension: Continue metoprolol. 6. Possible seizures: Continue Keppra. 7. Dysphagia: Continue tube feeds, Vital 1.5. Advance to goal as tolerated. Dietitian following. 8. GI prophylaxis: Protonix. 9. Insomnia: Restoril PRN. 10. DVT prophylaxis: Lovenox. 11. Deconditioning: Secondary to comorbid conditions above: PT daily, optimize nutrition. Discharge Planning dc planning in progress. Coleen Blankenship MD Mar 02, 2016 10:54
[2016-03-02] MEDS: ENOXAPARIN SODIUM 40 MG/0.4 ML SYRINGE SQ SCH (21:33)
[2016-03-02] MEDS: ONDANSETRON HCL 4 MG/2 ML VIAL IV PRN (22:35)
[2016-03-03] VITALS (16 sets, daily range): BP systolic 80–141; BP diastolic 52–77; PULSE 97–169; RESP 20–28; TEMP 96–102.9; O2SAT 90–100
[2016-03-03] MEDS: TEMAZEPAM 15 MG CAP PO PRN (00:30)
[2016-03-03] MEDS: PROMETHAZINE INJ 25 MG/ML VIAL IM PRN (03:43)
[2016-03-03] MEDS: ONDANSETRON HCL 4 MG/2 ML VIAL IV PRN (05:17)
[2016-03-03] MEDS ORDERED: SODIUM CHLORID 0.9% 500 ML INJ 500 ML IV ONE (06:00)
[2016-03-03] MEDS ORDERED: ACETAMINOPHEN 325 MG TAB PO ONE (06:00)
[2016-03-03] MEDS ORDERED: ACETAMINOPHEN 1000 MG/100 ML VIAL IV ONE (06:15)
[2016-03-03] MEDS ORDERED: METOPROLOL TARTRATE 5 MG/5 ML VIAL IV PUSH ONE (06:15)
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
[2016-03-03] MEDS ORDERED: METOPROLOL TARTRATE 25 MG TAB PO ONE (06:30)
[2016-03-03] MEDS ORDERED: MORPHINE SULFATE 4 MG/ML INJ IV PUSH PRN (06:30)
--- NOTE | 2016-03-03 06:43 | RADRPT ---
EXAM DATE/TIME: 03/03/2016 06:12 [facility] COMPARISON: CHEST SINGLE AP, February 16, 2016, 13:53. INDICATIONS : Pt having difficulty breathing. MEDICAL HISTORY : None. SURGICAL HISTORY : None. ENCOUNTER: Initial ACUITY: 1 day PAIN SCORE: 8/10 LOCATION: Bilateral chest FINDINGS: Single AP view of the chest. Volume loss of the left lung is again seen. Mid to lower left lung opaci ty is decreased when compared to the prior study of 02/16/2016. Left-sided bronchial stent is again se en. Cardiomediastinal silhouette unchanged. No evidence of pleural effusion or pneumothorax. CONCLUSION: Chronic volume loss and opacity of the left lung. Opacity has decreased when compared to the most rec ent radiograph. Anam Pavon MD on March 03, 2016 at 6:39 Board Certified Radiologist. This report was verified electronically.
[2016-03-03] MEDS ORDERED: METOPROLOL TARTRATE 25 MG TAB PO SCH (06:45)
--- NOTE | 2016-03-03 06:47 | RADRPT ---
EXAM DATE/TIME: 03/03/2016 06:18 [facility] COMPARISON: ABDOMEN KUB ONLY, February 15, 2016, 10:40. INDICATIONS : Pt having increased amounts of vomiting. MEDICAL HISTORY : None. SURGICAL HISTORY : None. ENCOUNTER: Initial ACUITY: 1 day PAIN SCORE: 9/10 LOCATION: Bilateral Absomen. FINDINGS: 2 AP supine views of the abdomen. Gastrojejunostomy tube remains in place in the midabdomen. Mild dif fuse gaseous distention of the colon, similar to the prior study of 02/15/2016. No abnormal abdominal calcification. Degenerative findings of the lumbar spine noted. CONCLUSION: Nonspecific bowel gas pattern similar to the prior study, likely representing ileus. Anam Pavon MD on March 03, 2016 at 6:42 Board Certified Radiologist. This report was verified electronically.
--- NOTE | 2016-03-03 07:36 | HHI.PR ---
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 DC Glucagon (Glucagon Inj) 1 mg STK-MED ONCE .ROUTE Last administered on at 14:15; Start 12/14/15 at 14:12; Stop 12/14/15 at 14:13; Status DC Metoclopramide HCl (Reglan Inj) 10 mg STK-MED ONCE .ROUTE Last administered on 12/14/15at 14:28; Start 12/14/15 at 14:28; Stop 12/14/15 at 14:29; Status DC Midazolam HCl (Versed Inj) 10 mg ONCE ONCE IV PUSH Last administered on at 15:19; Start 12/14/15 at 14:45; Stop 12/14/15 at 14:51; Status DC Vecuronium [place] (Norcuron 10 Mg Inj) 10 mg ONCE ONCE IV PUSH Last administered on 12/14/15at 15:19; Start 12/14/15 at 14:45; Stop 12/14/15 at 14:51 ; Status DC Fentanyl Citrate (Sublimaze Inj) 250 mcg ONCE ONCE IV PUSH Last administered on 12/14/15at 15:20; Start 12/14/15 at 14:45; Stop 12/14/15 at 14:51; Status DC Iohexol (Omnipaque 350 Inj) 80 ml STK-MED ONCE G-TUBE Last administered on 12/13at 15:00; Start 12/14/15 at 14:55; Stop 12/14/15 at 14:56; Status DC Albuterol/ Ipratropium (Duoneb Neb) 1 ampule Q6HR NEB NEB Last administered on 12/28/15at 08:04; Start 12/15/15 at 10:00; Stop 12/28/15 at 13:16; Status DC Diatrizoate Meglum/ Diatrizoate Sod ( Gastroview Liq) 18 ml ONCE ONCE PO Last administered on 12/15/15at 11:54; Start 12/15/15 at 11:15; Stop 12/15/15 at 11:16; Status DC Rocuronium [place] (Zemuron Inj) 50 mg BOLUS ONCE IV ; Start 12/15/15 at 14:30 ; Stop 12/15/15 at 14:31; Status DC Iohexol (Omnipaque 350 Inj) 96 ml STK-MED ONCE IV Last administered on at 14:56; Start 12/15/15 at 14:56; Stop 12/15/15 at 14:57; Status DC Midazolam HCl (Versed Inj) 5 mg STK-MED ONCE .ROUTE ; Start 12/16/15 at 08:41; Stop 12/16/15 at 08:42; Status DC Midazolam HCl (Versed Inj) 5 mg ONCE STAT IV Last administered on 12/16/15at 09 :30; Start 12/16/15 at 09:30; Stop 12/16/15 at 09:31; Status DC Miscellaneous Information SPECIFIC LAB TO BE SHARON... ONCE ONCE XX ; Start at 08:45; Stop 12/19/15 at 08:45; Status DC Midazolam HCl (Versed Inj) 2 mg Q2H PRN IV PUSH agitation Last administered on 12/20/15at 22:29; Start 12/17/15 at 21:15; Stop 12/21/15 at 13:16; Status DC Metoclopramide HCl (Reglan Inj) 10 mg Q8HR IV PUSH Last administered on at 12:51; Start 12/18/15 at 14:00; Stop 12/24/15 at 12:46; Status DC Lactulose 30 ml 30 ml Q12H PO ; Start 12/18/15 at 13:00; Stop 12/19/15 at 10:06 ; Status DC Potassium Phosphate/Sodium Chloride (Potassium Phosphate Inj/NS 250 ml Inj) 260 ml @ 43.333 mls/ hr ONCE ONCE IV Last administered on 12/19/15at 10:25; Start 12/19/15 at 10:00; Stop 12/19/15 at 15:59; Status DC Pantoprazole Sodium (Protonix Inj) 40 mg Q24H IV PUSH Last administered on 12/22at 12:51; Start 12/19/15 at 12:00; Stop 12/24/15 at 11:37; Status DC Metoprolol Tartrate (Lopressor Inj) 5 mg Q4HR IV PUSH Last administered on 12/20at 12:36; Start 12/19/15 at 12:00; Stop 12/21/15 at 12:49; Status DC Fentanyl (Duragesic 50 Mcg Patch.72 Hr) 1 patch Q3D TD Last administered on 01/31/16at 08:16; Start 12/20/15 at 09:00; Stop 02/03/16 at 08:45; Status DC Miscellaneous Information 1 Q3D TD Last administered on 01/31/16at 08:16; Start 12/23/15 at 09:00; Stop 01/31/16 at 10:57; Status DC Acetaminophen/ Hydrocodone Bitart ([place]ton 5-325 Mg) 1 tab Q6H PRN PO PAIN SCALE 1 TO 5; Start 12/20/15 at 09:00; Stop 12/21/15 at 13:45; Status DC Acetaminophen/ Hydrocodone Bitart ([place] 5-325 Mg) 2 tab Q6H PRN PO PAIN SCALE 6 TO 10; Start 12/20/15 at 09:00; Stop 12/21/15 at 13:45; Status DC Morphine Sulfate (Morphine Inj) 2 mg Q2HR PRN IV PUSH PAIN SCALE 8 TO 10 Last administered on 12/24/15at 14:44; Start 12/20/15 at 09:00; Stop 12/25/15 at 13:18 ; Status DC Morphine Sulfate (Morphine Inj) 4 mg Q4HR PRN IV PUSH PAIN SCALE 6 TO 10 Last administered on 12/20/15at 22:32; Start 12/20/15 at 09:00; Stop 12/21/15 at 13:45 ; Status DC Enoxaparin Sodium (Lovenox Inj) 30 mg Q12H SQ Last administered on 01/16/16at 22 :26; Start 12/20/15 at 10:00; Stop 01/17/16 at 09:48; Status DC Metoprolol Tartrate (Lopressor Inj) 5 mg ONCE ONCE IV PUSH Last administered on 12/21/15at 13:22; Start 12/21/15 at 12:45; Stop 12/21/15 at 12:56; Status DC Metoprolol Tartrate (Lopressor Inj) 10 mg Q4HR IV PUSH Last administered on at 09:28; Start 12/21/15 at 16:00; Stop 12/24/15 at 11:35; Status DC Olanzapine 5 mg 5 mg Q8H PRN PO AGITATION AND/OR HALLUCINATION Last administered on 12/31/15at 12:37; Start 12/21/15 at 13:00; Stop 01/14/16 at 13:04 ; Status DC Potassium Chloride 100 ml @ 50 mls/hr Q2H PRN IV For Potassium 2.8 - 3.2 mEq/L ; Start 12/21/15 at 13:00; Stop 01/13/16 at 21:27; Status DC Potassium Chloride (KCl 20 Meq Premix Inj) 100 ml @ 50 mls/hr Q2H PRN IV For Potassium 2.8 - 3.2 mEq/L; Start 12/21/15 at 13:00; Stop 01/13/16 at 21:27; Status DC Potassium Chloride 40 meq 40 meq UNSCH PRN PO/TUBE For Potassium 3.3 - 3.5 mEq/ L Last administered on 12/21/15at 15:19; Start 12/21/15 at 13:00; Stop 01/13/16 at 21:27; Status DC Potassium Chloride 100 ml @ 25 mls/hr UNSCH PRN IV For Potassium 3.3 - 3.5 mEq /L; Start 12/21/15 at 13:00; Stop 01/13/16 at 21:27; Status DC Potassium Chloride 100 ml @ 50 mls/hr Q2H PRN IV For Potassium 3.3 - 3.5 mEq/L ; Start 12/21/15 at 13:00; Stop 01/13/16 at 21:27; Status DC Magnesium Sulfate/ Sodium Chloride (Magnesium Sulfate Inj/NS Inj) 100 ml @ 50 mls/hr UNSCH PRN IV For Magnesium 0.9 - 1.1 mg/dL; Start 12/21/15 at 13:00; Stop 01/13/16 at 21:27; Status DC Magnesium Oxide 800 mg 800 mg UNSCH PRN PO For Magnesium 1.2 - 1.6 mg/dL; Start 12/21/15 at 13:00; Stop 01/13/16 at 21:27; Status DC Magnesium Sulfate/ Sodium Chloride (Magnesium Sulfate Inj/NS Inj) 100 ml @ 50 mls/hr UNSCH PRN IV For Magnesium 1.2 - 1.6 mg/dL; Start 12/21/15 at 13:00; Stop 01/13/16 at 21:27; Status DC Potassium Phosphate 2000 mg 2,000 mg Q4H PRN PO For Phosphorus < 2.5 mg/dL; Start 12/21/15 at 13:00; Stop 01/13/16 at 21:27; Status DC Sodium Phosphate/ Sodium Chloride (Sodium Phosphate Inj/NS 250 ml Inj) 250 ml @ 42 mls/hr UNSCH PRN IV For Phosphorus < 2.5 mg/dL Last administered on at 11:18; Start 12/21/15 at 13:00; Stop 01/13/16 at 21:27; Status DC Potassium Chloride (KCl 40 Meq/30 ml Liq) 40 meq UNSCH PRN PO/TUBE SEE LABEL COMMENTS; Start 12/21/15 at 13:00; Stop 01/13/16 at 21:27; Status DC Potassium Phosphate 2000 mg 2,000 mg UNSCH PRN PO/TUBE SEE LABEL COMMENTS; Start 12/21/15 at 13:00; Stop 01/13/16 at 21:27; Status DC Potassium Phosphate/Sodium Chloride (Potassium Phosphate Inj/NS 250 ml Inj) 260 ml @ 42 mls/hr UNSCH PRN IV SEE LABEL COMMENTS; Start 12/21/15 at 13:00; Stop 01/13/16 at 21:27; Status DC Oxycodone HCl (Roxicodone Intensol Liq) 5 mg Q4H PRN PO PAIN SCALE 4 TO 7 Last administered on 01/13/16at 11:08; Start 12/21/15 at 13:45; Stop 01/14/16 at 13:04 ; Status DC Labetalol HCl (Trandate Inj) 20 mg Q1H PRN IV PUSH SBP>170, DBP>90, HR>65 Last administered on 12/27/15at 10:22; Start 12/21/15 at 14:30; Stop 01/13/16 at 21:27 ; Status DC Levetriacetam (Keppra Liq) 500 mg Q12HR TUBE Last administered on 03/02/16at 21 :33; Start 12/22/15 at 21:00 Acetaminophen (Tylenol 650 Mg/ 20 ml Liq) 650 mg Q6H PRN J-TUBE PAIN SCALE 1 TO 5, T > 101 Last administered on 02/21/16at 06:23; Start 12/22/15 at 11:00 Labetalol HCl (Trandate Inj) 40 mg NOW ONCE IVP ; Start 12/23/15 at 12:00; Stop 12/23/15 at 12:01; Status DC Acetaminophen 650 mg 650 mg NOW ONCE J-TUBE ; Start 12/23/15 at 13:45; Stop at 13:46; Status DC Vancomycin HCl 1250 mg/Sodium Chloride 275 ml @ 250 mls/hr ONCE ONCE IV Last administered on 12/23/15at 17:14; Start 12/23/15 at 16:00; Stop 12/23/15 at 17:05 ; Status DC Piperacillin Sod/ Tazobactam Sod (Zosyn 3.375 Gm Premix) 50 ml @ 100 mls/hr Q8H IV Last administered on 01/05/16at 15:51; Start 12/23/15 at 16:00; Stop 04/11 at 18:15; Status DC Metoprolol Tartrate (Lopressor) 25 mg Q8HR TUBE Last administered on 01/15/16at 13:14; Start 12/24/15 at 14:00; Stop 01/15/16 at 15:23; Status DC Pantoprazole Sodium (Protonix Inj) 40 mg Q24H IV PUSH Last administered on 12/23at 12:21; Start 12/24/15 at 12:00; Stop 12/24/15 at 13:00; Status DC Ranitidine HCl (Zantac Liq) 150 mg Q12HR TUBE Last administered on 01/15/16at 10:14; Start 12/25/15 at 09:00; Stop 01/15/16 at 15:24; Status DC Metoclopramide HCl (Reglan Liq) 10 mg Q12HR G-TUBE Last administered on at 21:33; Start 12/24/15 at 21:00 Alprazolam (Xanax) 0.25 mg Q8HR PO Last administered on 01/13/16at 13:47; Start 12/25/15 at 14:00; Stop 01/14/16 at 13:04; Status DC Sennosides (Senna Liq) 8.8 mg ONCE ONCE PO Last administered on 12/25/15at 12: 03; Start 12/25/15 at 12:00; Stop 12/25/15 at 12:01; Status DC Sennosides (Senna Liq) 8.8 mg Q12HR PO Last administered on 01/13/16at 11:06; Start 12/25/15 at 21:00; Stop 01/14/16 at 13:04; Status DC Morphine Sulfate (Morphine Inj) 4 mg Q3H PRN IV PUSH PAIN SCALE 8 TO 10 Last administered on 01/17/16at 02:36; Start 12/25/15 at 13:15; Stop 01/17/16 at 09:45 ; Status DC Methylprednisolone Sodium Succinate (SoluMEDROL INJ) 40 mg Q8HR IV PUSH Last administered on 12/27/15at 05:50; Start 12/25/15 at 22:00; Stop 12/27/15 at 07:00; Status DC Midazolam HCl (Versed Inj) 10 mg ONCE ONCE IV Last administered on 12/26/15at 11 :22; Start 12/26/15 at 10:30; Stop 12/26/15 at 10:41; Status DC Fentanyl Citrate (Sublimaze Inj) 250 mcg ONCE ONCE IV PUSH Last administered on 12/26/15at 11:22; Start 12/26/15 at 10:30; Stop 12/26/15 at 10:41; Status DC Rocuronium [place] (Zemuron Inj) 100 mg BOLUS ONCE IV Last administered on 12/25at 11:21; Start 12/26/15 at 10:30; Stop 12/26/15 at 10:44; Status DC Acetylcysteine (Mucomyst 20% Neb) 2 ml Q8HR NEB NEB Last administered on at 07:34; Start 12/27/15 at 00:00; Stop 12/31/15 at 00:00; Status DC Propofol (Diprivan 200 Mg/20 ml Inj) 250 mg STK-MED ONCE IV PUSH ; Start at 13:23; Stop 12/30/15 at 13:46; Status DC Diatrizoate Meglum/ Diatrizoate Sod ( Gastroview Liq) 18 ml ONCE ONCE PO ; Start 12/30/15 at 16:00; Stop 12/30/15 at 16:01; Status Cancel Magnesium Hydroxide 30 ml 30 ml BID PRN PEG CONSTIPATION Last administered on at 09:42; Start 01/02/16 at 19:15; Stop 01/15/16 at 15:23; Status DC Dextrose/Sodium Chloride (D5W-1/2 NS 1000 ml Inj) 1,000 ml @ 60 mls/hr [id number] IV Last administered on 01/05/16at 17:08; Start 01/03/16 at 16:30; Stop 01/06/16 at 08:12; Status DC Ephedrine Sulfate (ePHEDrine/NS 50 MG/5 ML SYR) 50 mg STK-MED ONCE IV ; Start at 12:00; Stop 01/06/16 at 10:00; Status DC Phenylephrine HCl 1000 mcg 1,000 mcg STK-MED ONCE IV ; Start 12/30/15 at 12:00; Stop 01/06/16 at 10:00; Status DC Dextrose/Sodium Chloride (D5W-NS 1000 ml Inj) 1,000 ml @ 42 mls/hr [id number] IV Last administered on 01/13/16at 03:14; Start 01/06/16 at 11:00; Stop 01/15/16 at 14:53; Status DC Hyoscyamine Sulfate (Levsin Inj) 0.125 mg Q6H PRN IVP SECRETIONS Last administered on 01/16/16at 10:43; Start 01/10/16 at 21:45; Stop 01/17/16 at 09:49 ; Status DC Hyoscyamine Sulfate 0.125 mg 0.125 mg Q6H PRN SL SECRETIONS Last administered on 02/03/16at 17:17; Start 01/10/16 at 21:45; Stop 02/10/16 at 11:47; Status DC Levetriacetam (Keppra 500 Mg Premix Inj) 100 ml @ 400 mls/hr BOLUS ONCE IV Last administered on 01/13/16at 21:54; Start 01/13/16 at 22:00; Stop 01/13/16 at 22:14; Status DC Metoprolol Tartrate (Lopressor Inj) 5 mg ONCE ONCE IV PUSH Last administered on 01/13/16at 21:54; Start 01/13/16 at 22:00; Stop 01/13/16 at 22:01; Status DC Alprazolam (Xanax) 0.25 mg Q8HR G-TUBE Last administered on 02/05/16at 04:08; Start 01/14/16 at 14:00; Stop 02/05/16 at 09:53; Status DC Olanzapine (ZyPREXA ZYDIS ODT) 5 mg Q8H PRN .XX AGITATION AND/OR HALLUCINATION Last administered on 02/05/16at 04:08; Start 01/14/16 at 21:00 Oxycodone HCl (Roxicodone Intensol Liq) 5 mg Q4H PRN G-TUBE PAIN SCALE 4 TO 7 Last administered on 01/23/16at 12:11; Start 01/14/16 at 13:45; Stop 01/26/16 at 10:13; Status DC Sennosides (Senna Liq) 8.8 mg Q12HR GT Last administered on 02/08/16at 10:57; Start 01/14/16 at 21:00; Stop 02/09/16 at 08:49; Status DC Lorazepam 1 mg 1 mg Q6H PRN IV PUSH SEIZURES Last administered on 01/18/16at 10: 51; Start 01/14/16 at 13:00; Stop 01/20/16 at 11:19; Status DC Potassium Chloride/Dextrose/ Sod Cl (D5-1/2 NS + KCl 20 Meq Inj) 1,000 ml @ 84 mls/hr [id number] IV Last administered on 01/16/16at 22:27; Start 01/15/16 at 15:00 ; Stop 01/17/16 at 09:45; Status DC Magnesium Hydroxide (Milk Of Magnesia Liq) 30 ml BID PRN G-TUBE CONSTIPATION; Start 01/15/16 at 15:30 Metoprolol Tartrate (Lopressor) 25 mg Q8HR G-TUBE Last administered on 21:05; Start 01/15/16 at 22:00; Stop 01/26/16 at 10:13; Status DC Ranitidine HCl (Zantac Liq) 150 mg Q12HR G-TUBE Last administered on at 08:44; Start 01/15/16 at 21:00; Stop 02/14/16 at 12:36; Status DC Albuterol Sulfate (Albuterol Neb) 0.63 mg QID NEB NEB Last administered on at 11:36; Start 01/15/16 at 16:00; Stop 01/23/16 at 13:50; Status DC Morphine Sulfate (Morphine Inj) 8 mg STK-MED ONCE .ROUTE Last administered on at 16:41; Start 01/16/16 at 16:41; Stop 01/16/16 at 16:42; Status DC Fentanyl Citrate (Sublimaze Inj) 100 mcg STK-MED ONCE .ROUTE Last administered on 01/16/16at 16:59; Start 01/16/16 at 16:59; Stop 01/16/16 at 17:00; Status DC Midazolam HCl (Versed Inj) 2 mg STK-MED ONCE .ROUTE Last administered on at 16:59; Start 01/16/16 at 16:59; Stop 01/16/16 at 17:00; Status DC Iohexol (Omnipaque 350 Inj) 25 ml STK-MED ONCE G-TUBE Last administered on 01/15at 17:20; Start 01/16/16 at 17:20; Stop 01/16/16 at 17:36; Status DC Enoxaparin Sodium (Lovenox Inj) 40 mg Q24H SQ ; Start 01/17/16 at 22:00; Stop at 22:00; Status DC Sodium Biphosphate/ Sodium Phosphate (Fleets Enema (Adult)) 133 ml UNSCH PRN SC CONSTIPATION; Start 01/17/16 at 10:00 Enoxaparin Sodium (Lovenox Inj) 40 mg Q24H SQ Last administered on 03/02/16at 21 :33; Start 01/17/16 at 22:00 Morphine Sulfate (Morphine Inj) 4 mg ONCE ONCE IV PUSH Last administered on at 00:38; Start 01/20/16 at 00:15; Stop 01/20/16 at 00:17; Status DC Morphine Sulfate 4 mg 4 mg Q3H PRN IV PUSH PAIN SCALE 7 TO 10 Last administered on 01/26/16at 06:07; Start 01/20/16 at 08:30; Stop 01/26/16 at 10:11; Status DC Levofloxacin/ Dextrose (Levaquin 750 Mg Premix Inj) 150 ml @ 100 mls/hr Q24H IV Last administered on 01/29/16at 12:08; Start 01/20/16 at 12:00; Stop 01/29/16 at 19:00; Status DC Morphine Sulfate (Morphine Inj) 2 mg Q4HR PRN IV PUSH BREAKTHROUGH PAIN Last administered on 01/27/16at 19:23; Start 01/26/16 at 12:00; Stop 01/30/16 at 08:13; Status DC Acetaminophen/ Hydrocodone Bitart (Hycet 325-7.5 Mg Liq) 10 ml Q6H PRN PO PAIN SCALE 6 TO 10 Last administered on 01/30/16 01:03; Start 01/26/16 at 10:15; Stop 01/30/16 at 08:13; Status DC Metoprolol Tartrate (Lopressor) 12.5 mg Q12HR G-TUBE Last administered on at 09:30; Start 01/26/16 at 21:00; Stop 03/03/16 at 06:26; Status DC Promethazine HCl (Phenergan Inj) 12.5 mg Q4H PRN IM nausea Last administered on 03/03/16at 03:43; Start 01/27/16 at 20:15 Scopolamine (Transderm-Scop 1.5 Mg Patch.72 Hr) 1 patch Q3D TD Last administered on 02/08/16at 23:13; Start 01/27/16 at 21:00; Stop 02/11/16 at 08:07 ; Status DC Miscellaneous Information 1 Q3D TD Last administered on 02/08/16at 21:00; Start 01/30/16 at 21:00; Stop 02/11/16 at 08:07; Status DC Acetaminophen/ Hydrocodone Bitart (Hycet 325-7.5 Mg Liq) 5 ml Q6H PRN PO PAIN SCALE 6 TO 10 Last administered on 02/02/16at 12:50; Start 01/30/16 at 10:15; Stop 02/03/16 at 15:46; Status DC Fentanyl (Duragesic 25 Mcg Patch.72 Hr) 1 patch Q3D TD Last administered on 03/01/16at 09:30; Start 02/03/16 at 09:00 Miscellaneous Information 1 Q3D TD Last administered on 03/01/16at 09:30; Start 02/03/16 at 11:00 Metoprolol Tartrate 12.5 mg 12.5 mg ONCE ONCE PO Last administered on at 05:10; Start 02/01/16 at 04:45; Stop 02/01/16 at 04:51; Status DC Pharmacy Profile Note 0 ml @ 0 mls/hr UNSCH OTHER ; Start 02/01/16 at 07:45; Stop 02/04/16 at 16:02; Status DC Vancomycin HCl 1000 mg/Sodium Chloride 250 ml @ 250 mls/hr ONCE ONCE IV Last administered on 02/01/16at 08:25; Start 02/01/16 at 08:00; Stop 02/01/16 at 08:59; Status DC Piperacillin Sod/ Tazobactam Sod 100 ml @ 200 mls/hr Q6H IV Last administered on 02/06/16at 09:43; Start 02/01/16 at 09:00; Stop 02/06/16 at 14:49; Status DC Sodium Chloride 1,000 ml @ 100 mls/hr Q10H IV ; Start 02/01/16 at 07:45; Stop at 09:16; Status DC Sodium Chloride 1,000 ml @ 999 mls/hr BOLUS ONCE IV Last administered on at 08:24; Start 02/01/16 at 07:45; Stop 02/01/16 at 08:45; Status DC Sodium Chloride (NS 1000 ml Inj) 1,000 ml @ 75 mls/hr [id number] IV Last administered on 02/04/16at 05:21; Start 02/01/16 at 09:15; Stop 02/04/16 at 09:04 ; Status DC Miscellaneous Information SPECIFIC LAB TO BE DRAWN:VANCO TROUGH DATE... ONCE ONCE XX Last administered on 02/03/16at 14:32; Start 02/03/16 at 13:45; Stop at 13:46; Status DC Diatrizoate Meglum/ Diatrizoate Sod ( Gastroview Liq) 18 ml ONCE ONCE PO Last administered on 02/01/16at 12:06; Start 02/01/16 at 12:00; Stop 02/01/16 at 12: 01; Status DC Albuterol/ Ipratropium 1 ampule 1 ampule Q6HR WHILE AWAKE NEB NEB Last administered on 02/05/16at 19:56; Start 02/01/16 at 20:00; Stop 02/05/16 at 20:00 ; Status DC Sodium Chloride (NS 1000 ml Inj) 1,000 ml @ 999 mls/hr BOLUS ONCE IV Last administered on 02/01/16at 16:10; Start 02/01/16 at 16:30; Stop 02/01/16 at 17:30; Status DC Iohexol (Omnipaque 350 Inj) 70 ml STK-MED ONCE IV Last administered on at 16:38; Start 02/01/16 at 16:38; Stop 02/01/16 at 16:39; Status DC Miscellaneous Information Patient in critical care unit? Ass... [id number] Last administered on 02/01/16at 18:15; Start 02/01/16 at 18:15 Chlorhexidine Gluconate (Chlorhexidine 2% Cloth) 3 pack DAILY@04 TOP Last administered on 02/04/16at 03:53; Start 02/02/16 at 04:00; Stop 02/06/16 at 04:01 ; Status DC Chlorhexidine Gluconate 3 pack 3 pack UNSCH PRN TOP HYGIENIC CARE; Start at 18:15; Stop 02/06/16 at 18:04; Status DC Sodium Chloride 1,000 ml @ 999 mls/hr BOLUS ONCE IV Last administered on at 19:30; Start 02/01/16 at 19:30; Stop 02/01/16 at 20:30; Status DC Sodium Chloride 1,000 ml @ 999 mls/hr BOLUS ONCE IV Last administered on at 20:29; Start 02/01/16 at 20:30; Stop 02/01/16 at 21:30; Status DC Vancomycin HCl 1000 mg/Sodium Chloride 250 ml @ 250 mls/hr Q18H IV Last administered on 02/03/16at 14:32; Start 02/02/16 at 02:00; Stop 02/03/16 at 17:31; Status DC Sodium Chloride 1,000 ml @ 999 mls/hr BOLUS ONCE IV Last administered on at 00:39; Start 02/02/16 at 00:30; Stop 02/02/16 at 01:30; Status DC Sodium Chloride 1,000 ml @ 999 mls/hr BOLUS ONCE IV Last administered on at 08:11; Start 02/02/16 at 08:00; Stop 02/02/16 at 09:00; Status DC Potassium Chloride/Sodium Chloride (NS + KCl 20 Meq Inj) 1,000 ml @ 125 mls/hr Q8H ONCE IV Last administered on 02/02/16at 23:52; Start 02/02/16 at 23:45; Stop 9/9/16 at 07:44; Status DC Acetaminophen/ Hydrocodone Bitart (Hycet 325-7.5 Mg Liq) 15 ml Q6H PRN PO PAIN SCALE 6 TO 10 Last administered on 03/02/16at 21:36; Start 02/03/16 at 16:15 Furosemide 20 mg 20 mg ONCE ONCE IV PUSH Last administered on 02/03/16at 17:16; Start 02/03/16 at 17:15; Stop 02/03/16 at 17:16; Status DC Vancomycin HCl/ Sodium Chloride (Vancomycin Inj/ NS 250 ml Inj) 275 ml @ 275 mls/hr Q18H IV Last administered on 02/04/16at 03:53; Start 02/04/16 at 04:00; Stop 02/04/16 at 15:19; Status DC Miscellaneous Information SPECIFIC LAB TO BE SHARON... ONCE ONCE XX ; Start at 09:45; Stop 02/06/16 at 09:46; Status Cancel Potassium Chloride (KCl 20 Meq Premix Inj) 100 ml @ 50 mls/hr Q2H IV Last administered on 02/04/16at 11:00; Start 02/04/16 at 09:00; Stop 02/04/16 at 12:59 ; Status DC Potassium Chloride (KCl) 20 meq ONCE ONCE PO Last administered on 02/04/16at 08 :46; Start 02/04/16 at 08:30; Stop 02/04/16 at 08:51; Status DC Potassium Chloride (KCl 40 Meq/30 ml Liq) 20 meq ONCE ONCE G-TUBE Last administered on 02/04/16at 10:00; Start 02/04/16 at 09:00; Stop 02/04/16 at 09:01 ; Status DC Furosemide 20 mg 20 mg ONCE ONCE IV PUSH Last administered on 02/04/16at 10:05 ; Start 02/04/16 at 09:00; Stop 02/04/16 at 09:01; Status DC Magnesium Sulfate/ Dextrose (Magnesium Sulfate 1 Gm Premix) 100 ml @ 100 mls/ hr ONCE ONCE IV Last administered on 02/04/16at 09:08; Start 02/04/16 at 09:00 ; Stop 02/04/16 at 09:59; Status DC Escitalopram Oxalate 20 mg 20 mg HS PO Last administered on 02/12/16at 21:34; Start 02/04/16 at 21:00; Stop 02/14/16 at 17:16; Status DC Potassium Chloride 100 ml @ 50 mls/hr Q2H IV Last administered on 02/05/16at 11 :00; Start 02/05/16 at 09:00; Stop 02/05/16 at 12:59; Status DC Magnesium Sulfate/ Dextrose (Magnesium Sulfate 1 Gm Premix) 100 ml @ 100 mls/ hr ONCE ONCE IV Last administered on 02/05/16at 08:00; Start 02/05/16 at 08:00 ; Stop 02/05/16 at 08:59; Status DC Alprazolam (Xanax) 0.25 mg Q6H PRN PO agitation; Start 02/05/16 at 09:45; Stop 02/05/16 at 09:53; Status DC Furosemide (Lasix) 20 mg DAILY PO Last administered on 02/09/16at 10:07; Start 02/06/16 at 09:00; Stop 02/10/16 at 08:59; Status DC Alprazolam 0.5 mg 0.5 mg Q8HR G-TUBE Last administered on 02/14/16at 13:51; Start 02/05/16 at 14:00; Stop 02/14/16 at 17:15; Status DC Potassium Chloride (KCl 20 Meq Premix Inj) 100 ml @ 50 mls/hr Q2H IV Last administered on 02/06/16at 18:36; Start 02/06/16 at 16:00; Stop 02/06/16 at 19:59 ; Status DC Potassium Bicarb/ Potassium Chloride (K-Lyte Cl Eff) 50 meq ONCE ONCE PO Last administered on 02/06/16at 15:51; Start 02/06/16 at 15:30; Stop 02/06/16 at 15:31; Status DC Levofloxacin (Levaquin) 750 mg DAILY PO Last administered on 02/10/16at 09:00; Start 02/07/16 at 09:00; Stop 02/11/16 at 08:59; Status DC Sennosides (Senna Liq) 8.8 mg Q12HR PRN GT CONSTIPATION; Start 02/09/16 at 09: 00 Pantoprazole Sodium (Protonix) 40 mg DAILY PO Last administered on 02/15/16at 11 :44; Start 02/14/16 at 13:00; Stop 02/15/16 at 12:58; Status DC Ondansetron HCl (Zofran Odt) 4 mg ONCE ONCE PO Last administered on at 13:51; Start 02/14/16 at 12:45; Stop 02/14/16 at 12:46; Status DC Furosemide (Lasix Inj) 40 mg ONCE ONCE IV PUSH Last administered on 02/14/16at 17:17; Start 02/14/16 at 16:45; Stop 02/14/16 at 16:46; Status DC Alprazolam 0.25 mg 0.25 mg Q8H PRN G-[id number] anxiety Last administered on at 17:57; Start 02/14/16 at 17:15 Levofloxacin/ Dextrose 150 ml @ 100 mls/hr Q24H IV Last administered on at 21:00; Start 02/14/16 at 21:00; Stop 02/15/16 at 08:43; Status DC Piperacillin Sod/ Tazobactam Sod (Zosyn 4.5 Gm Premix) 100 ml @ 200 mls/hr Q6H IV Last administered on 02/15/16at 11:43; Start 02/15/16 at 11:00; Stop at 12:47; Status DC Ondansetron HCl 4 mg 4 mg TID PO Last administered on 03/02/16at 18:08; Start at 13:00 Ceftriaxone Sodium/Sodium Chloride (Rocephin Inj/NS Inj) 100 ml @ 200 mls/hr Q24H IV Last administered on 02/24/16at 13:42; Start 02/15/16 at 13:00; Stop at 17:00; Status DC Pantoprazole Sodium (Protonix) 40 mg BID PO Last administered on 02/22/16at 21: 32; Start 02/15/16 at 21:00; Stop 02/23/16 at 16:36; Status DC Docusate Sodium (Colace) 100 mg BID PO ; Start 02/15/16 at 13:00; Stop 02/15/16 at 15:33; Status DC Sennosides (Senokot) 17.2 mg DAILY PO Last administered on 02/28/16at 08:11; Start 02/15/16 at 13:00 Lactulose (Lactulose Liq) 30 ml ONCE ONCE PO Last administered on 02/15/16at 13 :57; Start 02/15/16 at 13:00; Stop 02/15/16 at 13:01; Status DC Sodium Polystyrene Sulfonate (Kayexalate Liq) 30 gm ONCE ONCE GT Last administered on 02/15/16at 16:14; Start 02/15/16 at 15:45; Stop 02/15/16 at 15:46 ; Status DC Docusate Sodium 100 mg 100 mg Q12HR PO ; Start 02/15/16 at 21:00; Status UNV Dextrose/Sodium Chloride (D5W-NS 1000 ml Inj) 1,000 ml @ 75 mls/hr [id number] IV Last administered on 02/16/16at 05:10; Start 02/15/16 at 15:45; Stop 02/16/16 at 13:42; Status DC Docusate Sodium (Colace) 100 mg Q12HR PO Last administered on 02/28/16at 22:01; Start 02/15/16 at 21:00 Hydromorphone HCl (Dilaudid Pf Inj) 0.2 mg ONCE ONCE IV PUSH Last administered on 02/18/16at 03:14; Start 02/18/16 at 02:45; Stop 02/18/16 at 02:46 ; Status DC Hydromorphone HCl (Dilaudid Pf Inj) 0.2 mg Q4H PRN IV PUSH BREAKTHROUGH PAIN Last administered on 02/22/16at 20:43; Start 02/18/16 at 13:15 Influenza Virus Vaccine (Flu (Quadrivalent) Vaccine Inj) 0.5 ml ONCE ONCE IM Last administered on 02/21/16at 11:39; Start 02/21/16 at 10:00; Stop 02/21/16 at 10:01; Status DC Famotidine (Pepcid) 20 mg BID PO ; Start 02/23/16 at 21:00; Stop 02/23/16 at 21: 00; Status DC Lansoprazole (Prevacid Odt) 30 mg DAILY NG Last administered on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
[2016-03-03 07:38] LABS: BASOPHIL % 0.3 % (0.0-2.0); EOSINOPHIL # 0.1 TH/MM3 (0-0.4); EOSINOPHIL % 0.9 % (0.0-4.0); HEMATOCRIT 33.6 % (39.0-51.0); HEMO FLAGS DIFF FINAL; LYMPH % 8.6 % (9.0-44.0); LYMPHOCYTE # 0.6 TH/MM3 (1.0-4.8); MEAN CELL VOLUME 93.5 FL (80.0-100.0); MEAN CORPUSCULAR HEMOGLOBIN 31.1 PG (27.0-34.0); MEAN CORPUSCULAR HGB CONC 33.3 % (32.0-36.0); NEUT % 85.2 % (16.0-70.0); PLATELET COUNT 321 TH/MM3 (150-450); RED CELL DISTRIBUTION WIDTH 15.8 % (11.6-17.2); WHITE BLOOD COUNT 7.1 TH/MM3 (4.0-11.0)
[2016-03-03] MEDS ORDERED: Vancomycin Consult Pharmacy 1 EA OTHER SCH (07:45)
[2016-03-03 07:53] LABS: ALT (GPT) 15 U/L (12-78); ANION GAP 8 MEQ/L (5-15); AST (GOT) 11 U/L (15-37); BICARBONATE 28.7 MEQ/L (21.0-32.0); BLOOD UREA NITROGEN 22 MG/DL (7-18); CHLORIDE 97 MEQ/L (98-107); GLOMERULAR FILTRATION RATE 122 ML/MIN (>89); POTASSIUM 4.1 MEQ/L (3.5-5.1); SODIUM (NA) 134 MEQ/L (136-145)
[2016-03-03 07:55] LABS: ALKALINE PHOSPHATASE 61 U/L (45-117); TOTAL BILIRUBIN ADULT 0.3 MG/DL (0.2-1.0)
[2016-03-03] MEDS ORDERED: VANCOMYCIN INJ 1,000 MG in SODIUM CHLOR 0.9% 250 ML INJ 250 ML IV ONE (08:00)
[2016-03-03] MEDS ORDERED: SODIUM CHLOR 0.9% 1000 ML INJ 1,000 ML IV ONE (08:00)
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
[2016-03-03] MEDS ORDERED: METOPROLOL TARTRATE 25 MG TAB G-TUBE SCH (09:00)
[2016-03-03] MEDS: SODIUM CHLORIDE 0.9% FLUSH 5 ML FLUSH IVF SCH ×2 (09:00→21:40)
[2016-03-03] MEDS: METOCLOPRAMIDE HCL SYRUP 10 MG/10 ML UDC G-TUBE SCH ×2 (10:35→21:40)
[2016-03-03] MEDS: SENNOSIDES 8.6 MG TAB PO SCH (10:36)
[2016-03-03] MEDS: levETIRAcetam 500 MG/5 ML UDC TUBE SCH ×2 (10:36→21:40)
[2016-03-03] MEDS: DOCUSATE SODIUM 100 MG CAP PO SCH ×2 (10:37→21:00)
[2016-03-03] MEDS: ONDANSETRON ODT 4 MG TAB PO SCH ×3 (10:37→17:17)
[2016-03-03] MEDS: LANSOPRAZOLE SOLUTAB 30 MG TAB NG SCH (10:37)
[2016-03-03] MEDS: CEFEPIME INJ 2,000 MG in SODIUM CHLORIDE 0.9% INJ 100 ML IV SCH ×2 (15:10→21:40)
[2016-03-03] MEDS: ENOXAPARIN SODIUM 40 MG/0.4 ML SYRINGE SQ SCH (21:40)
[2016-03-03] MEDS: VANCOMYCIN 1,000 MG/NS 250 ML IV SCH ×2 (22:41)
[2016-03-03] MEDS: DEXT 5%-NACL 0.9% 1000 ML INJ 1,000 ML IV SCH (22:42)
[2016-03-04] VITALS (9 sets, daily range): BP systolic 92–132; BP diastolic 54–81; PULSE 81–98; RESP 18–21; TEMP 96.6–98.1; O2SAT 94–99
[2016-03-04] MEDS: ACETAMINOPHEN 325MG/HYDROcodone 7.5MG/15ML UDC PO PRN ×3 (04:09→22:11)
[2016-03-04 06:30] LABS: BICARBONATE 29.5 MEQ/L (21.0-32.0); POTASSIUM 3.9 MEQ/L (3.5-5.1)
[2016-03-04 08:00] LABS: AUTOMATED NEUTROPHIL # 3.4 TH/MM3 (1.8-7.7); BASOPHIL % 0.9 % (0.0-2.0); EOSINOPHIL # 0.3 TH/MM3 (0-0.4); EOSINOPHIL % 6.2 % (0.0-4.0); HEMATOCRIT 25.4 % (39.0-51.0); HEMO FLAGS DIFF FINAL; LYMPH % 25.1 % (9.0-44.0); LYMPHOCYTE # 1.4 TH/MM3 (1.0-4.8); MEAN CELL VOLUME 93.9 FL (80.0-100.0); MEAN CORPUSCULAR HEMOGLOBIN 32.4 PG (27.0-34.0); MEAN CORPUSCULAR HGB CONC 34.5 % (32.0-36.0); MONO % 6.6 % (0.0-8.0); NEUT % 61.2 % (16.0-70.0); PLATELET COUNT 220 TH/MM3 (150-450); RED BLOOD COUNT 2.71 MIL/MM3 (4.50-5.90); RED CELL DISTRIBUTION WIDTH 15.9 % (11.6-17.2); WHITE BLOOD COUNT 5.5 TH/MM3 (4.0-11.0)
[2016-03-04] MEDS: SODIUM CHLORIDE 0.9% FLUSH 5 ML FLUSH IVF SCH ×2 (09:00→22:13)
[2016-03-04] MEDS: fentaNYL 25 MCG/HR PATCH TD SCH (09:50)
[2016-03-04] MEDS: levETIRAcetam 500 MG/5 ML UDC TUBE SCH ×2 (09:51→22:11)
[2016-03-04] MEDS: METOCLOPRAMIDE HCL SYRUP 10 MG/10 ML UDC G-TUBE SCH ×2 (09:51→22:13)
[2016-03-04] MEDS: CEFEPIME INJ 2,000 MG in SODIUM CHLORIDE 0.9% INJ 100 ML IV SCH ×2 (09:51→22:13)
[2016-03-04] MEDS: SENNOSIDES 8.6 MG TAB PO SCH (09:51)
[2016-03-04] MEDS: ONDANSETRON ODT 4 MG TAB PO SCH ×3 (09:52→16:35)
[2016-03-04] MEDS: DOCUSATE SODIUM 100 MG CAP PO SCH ×2 (09:52→21:00)
[2016-03-04] MEDS: LANSOPRAZOLE SOLUTAB 30 MG TAB NG SCH (09:52)
[2016-03-04] MEDS: DEXT 5%-NACL 0.9% 1000 ML INJ 1,000 ML IV SCH ×2 (09:53→22:50)
[2016-03-04] MEDS: REMOVE OLD PATCH TD SCH (11:00)
--- NOTE | 2016-03-04 11:38 | HHI.PR ---
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 14:12; Stop 12/14/15 at 14:13; Status DC Metoclopramide HCl (Reglan Inj) 10 mg STK-MED ONCE .ROUTE Last administered on 12/14/15at 14:28; Start 12/14/15 at 14:28; Stop 12/14/15 at 14:29; Status DC Midazolam HCl (Versed Inj) 10 mg ONCE ONCE IV PUSH Last administered on at 15:19; Start 12/14/15 at 14:45; Stop 12/14/15 at 14:51; Status DC Vecuronium [place] (Norcuron 10 Mg Inj) 10 mg ONCE ONCE IV PUSH Last administered on 12/14/15at 15:19; Start 12/14/15 at 14:45; Stop 12/14/15 at 14:51 ; Status DC Fentanyl Citrate (Sublimaze Inj) 250 mcg ONCE ONCE IV PUSH Last administered on 12/14/15at 15:20; Start 12/14/15 at 14:45; Stop 12/14/15 at 14:51; Status DC Iohexol (Omnipaque 350 Inj) 80 ml STK-MED ONCE G-TUBE Last administered on 12/13at 15:00; Start 12/14/15 at 14:55; Stop 12/14/15 at 14:56; Status DC Albuterol/ Ipratropium (Duoneb Neb) 1 ampule Q6HR NEB NEB Last administered on 12/28/15at 08:04; Start 12/15/15 at 10:00; Stop 12/28/15 at 13:16; Status DC Diatrizoate Meglum/ Diatrizoate Sod ( Gastroview Liq) 18 ml ONCE ONCE PO Last administered on 12/15/15at 11:54; Start 12/15/15 at 11:15; Stop 12/15/15 at 11:16; Status DC Rocuronium [place] (Zemuron Inj) 50 mg BOLUS ONCE IV ; Start 12/15/15 at 14:30 ; Stop 12/15/15 at 14:31; Status DC Iohexol (Omnipaque 350 Inj) 96 ml STK-MED ONCE IV Last administered on at 14:56; Start 12/15/15 at 14:56; Stop 12/15/15 at 14:57; Status DC Midazolam HCl (Versed Inj) 5 mg STK-MED ONCE .ROUTE ; Start 12/16/15 at 08:41; Stop 12/16/15 at 08:42; Status DC Midazolam HCl (Versed Inj) 5 mg ONCE STAT IV Last administered on 12/16/15at 09 :30; Start 12/16/15 at 09:30; Stop 12/16/15 at 09:31; Status DC Miscellaneous Information SPECIFIC LAB TO BE SHARON... ONCE ONCE XX ; Start at 08:45; Stop 12/19/15 at 08:45; Status DC Midazolam HCl (Versed Inj) 2 mg Q2H PRN IV PUSH agitation Last administered on 12/20/15at 22:29; Start 12/17/15 at 21:15; Stop 12/21/15 at 13:16; Status DC Metoclopramide HCl (Reglan Inj) 10 mg Q8HR IV PUSH Last administered on at 12:51; Start 12/18/15 at 14:00; Stop 12/24/15 at 12:46; Status DC Lactulose 30 ml 30 ml Q12H PO ; Start 12/18/15 at 13:00; Stop 12/19/15 at 10:06 ; Status DC Potassium Phosphate/Sodium Chloride (Potassium Phosphate Inj/NS 250 ml Inj) 260 ml @ 43.333 mls/ hr ONCE ONCE IV Last administered on 12/19/15at 10:25; Start 12/19/15 at 10:00; Stop 12/19/15 at 15:59; Status DC Pantoprazole Sodium (Protonix Inj) 40 mg Q24H IV PUSH Last administered on 12/22at 12:51; Start 12/19/15 at 12:00; Stop 12/24/15 at 11:37; Status DC Metoprolol Tartrate (Lopressor Inj) 5 mg Q4HR IV PUSH Last administered on 12/20at 12:36; Start 12/19/15 at 12:00; Stop 12/21/15 at 12:49; Status DC Fentanyl (Duragesic 50 Mcg Patch.72 Hr) 1 patch Q3D TD Last administered on 01/31/16at 08:16; Start 12/20/15 at 09:00; Stop 02/03/16 at 08:45; Status DC Miscellaneous Information 1 Q3D TD Last administered on 01/31/16at 08:16; Start 12/23/15 at 09:00; Stop 01/31/16 at 10:57; Status DC Acetaminophen/ Hydrocodone Bitart ([place] 5-325 Mg) 1 tab Q6H PRN PO PAIN SCALE 1 TO 5; Start 12/20/15 at 09:00; Stop 12/21/15 at 13:45; Status DC Acetaminophen/ Hydrocodone Bitart ([place] 5-325 Mg) 2 tab Q6H PRN PO PAIN SCALE 6 TO 10; Start 12/20/15 at 09:00; Stop 12/21/15 at 13:45; Status DC Morphine Sulfate (Morphine Inj) 2 mg Q2HR PRN IV PUSH PAIN SCALE 8 TO 10 Last administered on 12/24/15at 14:44; Start 12/20/15 at 09:00; Stop 12/25/15 at 13:18 ; Status DC Morphine Sulfate (Morphine Inj) 4 mg Q4HR PRN IV PUSH PAIN SCALE 6 TO 10 Last administered on 12/20/15at 22:32; Start 12/20/15 at 09:00; Stop 12/21/15 at 13:45 ; Status DC Enoxaparin Sodium (Lovenox Inj) 30 mg Q12H SQ Last administered on 01/16/16at 22 :26; Start 12/20/15 at 10:00; Stop 01/17/16 at 09:48; Status DC Metoprolol Tartrate (Lopressor Inj) 5 mg ONCE ONCE IV PUSH Last administered on 12/21/15at 13:22; Start 12/21/15 at 12:45; Stop 12/21/15 at 12:56; Status DC Metoprolol Tartrate (Lopressor Inj) 10 mg Q4HR IV PUSH Last administered on at 09:28; Start 12/21/15 at 16:00; Stop 12/24/15 at 11:35; Status DC Olanzapine 5 mg 5 mg Q8H PRN PO AGITATION AND/OR HALLUCINATION Last administered on 12/31/15at 12:37; Start 12/21/15 at 13:00; Stop 01/14/16 at 13:04 ; Status DC Potassium Chloride 100 ml @ 50 mls/hr Q2H PRN IV For Potassium 2.8 - 3.2 mEq/L ; Start 12/21/15 at 13:00; Stop 01/13/16 at 21:27; Status DC Potassium Chloride (KCl 20 Meq Premix Inj) 100 ml @ 50 mls/hr Q2H PRN IV For Potassium 2.8 - 3.2 mEq/L; Start 12/21/15 at 13:00; Stop 01/13/16 at 21:27; Status DC Potassium Chloride 40 meq 40 meq UNSCH PRN PO/TUBE For Potassium 3.3 - 3.5 mEq/ L Last administered on 12/21/15at 15:19; Start 12/21/15 at 13:00; Stop 01/13/16 at 21:27; Status DC Potassium Chloride 100 ml @ 25 mls/hr UNSCH PRN IV For Potassium 3.3 - 3.5 mEq /L; Start 12/21/15 at 13:00; Stop 01/13/16 at 21:27; Status DC Potassium Chloride 100 ml @ 50 mls/hr Q2H PRN IV For Potassium 3.3 - 3.5 mEq/L ; Start 12/21/15 at 13:00; Stop 01/13/16 at 21:27; Status DC Magnesium Sulfate/ Sodium Chloride (Magnesium Sulfate Inj/NS Inj) 100 ml @ 50 mls/hr UNSCH PRN IV For Magnesium 0.9 - 1.1 mg/dL; Start 12/21/15 at 13:00; Stop 01/13/16 at 21:27; Status DC Magnesium Oxide 800 mg 800 mg UNSCH PRN PO For Magnesium 1.2 - 1.6 mg/dL; Start 12/21/15 at 13:00; Stop 01/13/16 at 21:27; Status DC Magnesium Sulfate/ Sodium Chloride (Magnesium Sulfate Inj/NS Inj) 100 ml @ 50 mls/hr UNSCH PRN IV For Magnesium 1.2 - 1.6 mg/dL; Start 12/21/15 at 13:00; Stop 01/13/16 at 21:27; Status DC Potassium Phosphate 2000 mg 2,000 mg Q4H PRN PO For Phosphorus < 2.5 mg/dL; Start 12/21/15 at 13:00; Stop 01/13/16 at 21:27; Status DC Sodium Phosphate/ Sodium Chloride (Sodium Phosphate Inj/NS 250 ml Inj) 250 ml @ 42 mls/hr UNSCH PRN IV For Phosphorus < 2.5 mg/dL Last administered on at 11:18; Start 12/21/15 at 13:00; Stop 01/13/16 at 21:27; Status DC Potassium Chloride (KCl 40 Meq/30 ml Liq) 40 meq UNSCH PRN PO/TUBE SEE LABEL COMMENTS; Start 12/21/15 at 13:00; Stop 01/13/16 at 21:27; Status DC Potassium Phosphate 2000 mg 2,000 mg UNSCH PRN PO/TUBE SEE LABEL COMMENTS; Start 12/21/15 at 13:00; Stop 01/13/16 at 21:27; Status DC Potassium Phosphate/Sodium Chloride (Potassium Phosphate Inj/NS 250 ml Inj) 260 ml @ 42 mls/hr UNSCH PRN IV SEE LABEL COMMENTS; Start 12/21/15 at 13:00; Stop 01/13/16 at 21:27; Status DC Oxycodone HCl (Roxicodone Intensol Liq) 5 mg Q4H PRN PO PAIN SCALE 4 TO 7 Last administered on 01/13/16at 11:08; Start 12/21/15 at 13:45; Stop 01/14/16 at 13:04 ; Status DC Labetalol HCl (Trandate Inj) 20 mg Q1H PRN IV PUSH SBP>170, DBP>90, HR>65 Last administered on 12/27/15at 10:22; Start 12/21/15 at 14:30; Stop 01/13/16 at 21:27 ; Status DC Levetriacetam (Keppra Liq) 500 mg Q12HR TUBE Last administered on 03/04/16at 09 :51; Start 12/22/15 at 21:00 Acetaminophen (Tylenol 650 Mg/ 20 ml Liq) 650 mg Q6H PRN J-TUBE PAIN SCALE 1 TO 5, T > 101 Last administered on 02/21/16at 06:23; Start 12/22/15 at 11:00 Labetalol HCl (Trandate Inj) 40 mg NOW ONCE IVP ; Start 12/23/15 at 12:00; Stop 12/23/15 at 12:01; Status DC Acetaminophen 650 mg 650 mg NOW ONCE J-TUBE ; Start 12/23/15 at 13:45; Stop at 13:46; Status DC Vancomycin HCl 1250 mg/Sodium Chloride 275 ml @ 250 mls/hr ONCE ONCE IV Last administered on 12/23/15at 17:14; Start 12/23/15 at 16:00; Stop 12/23/15 at 17:05 ; Status DC Piperacillin Sod/ Tazobactam Sod (Zosyn 3.375 Gm Premix) 50 ml @ 100 mls/hr Q8H IV Last administered on 01/05/16at 15:51; Start 12/23/15 at 16:00; Stop 04/11 at 18:15; Status DC Metoprolol Tartrate (Lopressor) 25 mg Q8HR TUBE Last administered on 01/15/16at 13:14; Start 12/24/15 at 14:00; Stop 01/15/16 at 15:23; Status DC Pantoprazole Sodium (Protonix Inj) 40 mg Q24H IV PUSH Last administered on 12/23at 12:21; Start 12/24/15 at 12:00; Stop 12/24/15 at 13:00; Status DC Ranitidine HCl (Zantac Liq) 150 mg Q12HR TUBE Last administered on 01/15/16at 10:14; Start 12/25/15 at 09:00; Stop 01/15/16 at 15:24; Status DC Metoclopramide HCl (Reglan Liq) 10 mg Q12HR G-TUBE Last administered on at 09:51; Start 12/24/15 at 21:00 Alprazolam (Xanax) 0.25 mg Q8HR PO Last administered on 01/13/16at 13:47; Start 12/25/15 at 14:00; Stop 01/14/16 at 13:04; Status DC Sennosides (Senna Liq) 8.8 mg ONCE ONCE PO Last administered on 12/25/15at 12: 03; Start 12/25/15 at 12:00; Stop 12/25/15 at 12:01; Status DC Sennosides (Senna Liq) 8.8 mg Q12HR PO Last administered on 01/13/16at 11:06; Start 12/25/15 at 21:00; Stop 01/14/16 at 13:04; Status DC Morphine Sulfate (Morphine Inj) 4 mg Q3H PRN IV PUSH PAIN SCALE 8 TO 10 Last administered on 01/17/16at 02:36; Start 12/25/15 at 13:15; Stop 01/17/16 at 09:45 ; Status DC Methylprednisolone Sodium Succinate (SoluMEDROL INJ) 40 mg Q8HR IV PUSH Last administered on 12/27/15at 05:50; Start 12/25/15 at 22:00; Stop 12/27/15 at 07:00; Status DC Midazolam HCl (Versed Inj) 10 mg ONCE ONCE IV Last administered on 12/26/15at 11 :22; Start 12/26/15 at 10:30; Stop 12/26/15 at 10:41; Status DC Fentanyl Citrate (Sublimaze Inj) 250 mcg ONCE ONCE IV PUSH Last administered on 12/26/15at 11:22; Start 12/26/15 at 10:30; Stop 12/26/15 at 10:41; Status DC Rocuronium [place] (Zemuron Inj) 100 mg BOLUS ONCE IV Last administered on 12/25at 11:21; Start 12/26/15 at 10:30; Stop 12/26/15 at 10:44; Status DC Acetylcysteine (Mucomyst 20% Neb) 2 ml Q8HR NEB NEB Last administered on at 07:34; Start 12/27/15 at 00:00; Stop 12/31/15 at 00:00; Status DC Propofol (Diprivan 200 Mg/20 ml Inj) 250 mg STK-MED ONCE IV PUSH ; Start at 13:23; Stop 12/30/15 at 13:46; Status DC Diatrizoate Meglum/ Diatrizoate Sod ( Gastroview Liq) 18 ml ONCE ONCE PO ; Start 12/30/15 at 16:00; Stop 12/30/15 at 16:01; Status Cancel Magnesium Hydroxide 30 ml 30 ml BID PRN PEG CONSTIPATION Last administered on at 09:42; Start 01/02/16 at 19:15; Stop 01/15/16 at 15:23; Status DC Dextrose/Sodium Chloride (D5W-1/2 NS 1000 ml Inj) 1,000 ml @ 60 mls/hr [id number] IV Last administered on 01/05/16at 17:08; Start 01/03/16 at 16:30; Stop 01/06/16 at 08:12; Status DC Ephedrine Sulfate (ePHEDrine/NS 50 MG/5 ML SYR) 50 mg STK-MED ONCE IV ; Start at 12:00; Stop 01/06/16 at 10:00; Status DC Phenylephrine HCl 1000 mcg 1,000 mcg STK-MED ONCE IV ; Start 12/30/15 at 12:00; Stop 01/06/16 at 10:00; Status DC Dextrose/Sodium Chloride (D5W-NS 1000 ml Inj) 1,000 ml @ 42 mls/hr [id number] IV Last administered on 01/13/16at 03:14; Start 01/06/16 at 11:00; Stop 01/15/16 at 14:53; Status DC Hyoscyamine Sulfate (Levsin Inj) 0.125 mg Q6H PRN IVP SECRETIONS Last administered on 01/16/16at 10:43; Start 01/10/16 at 21:45; Stop 01/17/16 at 09:49 ; Status DC Hyoscyamine Sulfate 0.125 mg 0.125 mg Q6H PRN SL SECRETIONS Last administered on 02/03/16at 17:17; Start 01/10/16 at 21:45; Stop 02/10/16 at 11:47; Status DC Levetriacetam (Keppra 500 Mg Premix Inj) 100 ml @ 400 mls/hr BOLUS ONCE IV Last administered on 01/13/16at 21:54; Start 01/13/16 at 22:00; Stop 01/13/16 at 22:14; Status DC Metoprolol Tartrate (Lopressor Inj) 5 mg ONCE ONCE IV PUSH Last administered on 01/13/16at 21:54; Start 01/13/16 at 22:00; Stop 01/13/16 at 22:01; Status DC Alprazolam (Xanax) 0.25 mg Q8HR G-TUBE Last administered on 02/05/16at 04:08; Start 01/14/16 at 14:00; Stop 02/05/16 at 09:53; Status DC Olanzapine (ZyPREXA ZYDIS ODT) 5 mg Q8H PRN .XX AGITATION AND/OR HALLUCINATION Last administered on 02/05/16at 04:08; Start 01/14/16 at 21:00 Oxycodone HCl (Roxicodone Intensol Liq) 5 mg Q4H PRN G-TUBE PAIN SCALE 4 TO 7 Last administered on 01/23/16 12:11; Start 01/14/16 at 13:45; Stop 01/26/16 at 10:13; Status DC Sennosides (Senna Liq) 8.8 mg Q12HR GT Last administered on 02/08/16at 10:57; Start 01/14/16 at 21:00; Stop 02/09/16 at 08:49; Status DC Lorazepam 1 mg 1 mg Q6H PRN IV PUSH SEIZURES Last administered on 01/18/16at 10: 51; Start 01/14/16 at 13:00; Stop 01/20/16 at 11:19; Status DC Potassium Chloride/Dextrose/ Sod Cl (D5-1/2 NS + KCl 20 Meq Inj) 1,000 ml @ 84 mls/hr [id number] IV Last administered on 01/16/16 22:27; Start 01/15/16 at 15:00 ; Stop 01/17/16 at 09:45; Status DC Magnesium Hydroxide (Milk Of Magnesia Liq) 30 ml BID PRN G-TUBE CONSTIPATION; Start 01/15/16 at 15:30 Metoprolol Tartrate (Lopressor) 25 mg Q8HR G-TUBE Last administered on 21:05; Start 01/15/16 at 22:00; Stop 01/26/16 at 10:13; Status DC Ranitidine HCl (Zantac Liq) 150 mg Q12HR G-TUBE Last administered on at 08:44; Start 01/15/16 at 21:00; Stop 02/14/16 at 12:36; Status DC Albuterol Sulfate (Albuterol Neb) 0.63 mg QID NEB NEB Last administered on at 11:36; Start 01/15/16 at 16:00; Stop 01/23/16 at 13:50; Status DC Morphine Sulfate (Morphine Inj) 8 mg STK-MED ONCE .ROUTE Last administered on 16:41; Start 01/16/16 at 16:41; Stop 01/16/16 at 16:42; Status DC Fentanyl Citrate (Sublimaze Inj) 100 mcg STK-MED ONCE .ROUTE Last administered on 01/16/16at 16:59; Start 01/16/16 at 16:59; Stop 01/16/16 at 17:00; Status DC Midazolam HCl (Versed Inj) 2 mg STK-MED ONCE .ROUTE Last administered on at 16:59; Start 01/16/16 at 16:59; Stop 01/16/16 at 17:00; Status DC Iohexol (Omnipaque 350 Inj) 25 ml STK-MED ONCE G-TUBE Last administered on 01/15at 17:20; Start 01/16/16 at 17:20; Stop 01/16/16 at 17:36; Status DC Enoxaparin Sodium (Lovenox Inj) 40 mg Q24H SQ ; Start 01/17/16 at 22:00; Stop at 22:00; Status DC Sodium Biphosphate/ Sodium Phosphate (Fleets Enema (Adult)) 133 ml UNSCH PRN [place] CONSTIPATION; Start 01/17/16 at 10:00 Enoxaparin Sodium (Lovenox Inj) 40 mg Q24H SQ Last administered on 03/03/16at 21 :40; Start 01/17/16 at 22:00 Morphine Sulfate (Morphine Inj) 4 mg ONCE ONCE IV PUSH Last administered on at 00:38; Start 01/20/16 at 00:15; Stop 01/20/16 at 00:17; Status DC Morphine Sulfate 4 mg 4 mg Q3H PRN IV PUSH PAIN SCALE 7 TO 10 Last administered on 01/26/16at 06:07; Start 01/20/16 at 08:30; Stop 01/26/16 at 10:11; Status DC Levofloxacin/ Dextrose (Levaquin 750 Mg Premix Inj) 150 ml @ 100 mls/hr Q24H IV Last administered on 01/29/16at 12:08; Start 01/20/16 at 12:00; Stop 01/29/16 at 19:00; Status DC Morphine Sulfate (Morphine Inj) 2 mg Q4HR PRN IV PUSH BREAKTHROUGH PAIN Last administered on 01/27/16at 19:23; Start 01/26/16 at 12:00; Stop 01/30/16 at 08:13; Status DC Acetaminophen/ Hydrocodone Bitart (Hycet 325-7.5 Mg Liq) 10 ml Q6H PRN PO PAIN SCALE 6 TO 10 Last administered on 01/30/16at 01:03; Start 01/26/16 at 10:15; Stop 01/30/16 at 08:13; Status DC Metoprolol Tartrate (Lopressor) 12.5 mg Q12HR G-TUBE Last administered on at 09:30; Start 01/26/16 at 21:00; Stop 03/03/16 at 06:26; Status DC Promethazine HCl (Phenergan Inj) 12.5 mg Q4H PRN IM nausea Last administered on 03/03/16at 03:43; Start 01/27/16 at 20:15 Scopolamine (Transderm-Scop 1.5 Mg Patch.72 Hr) 1 patch Q3D TD Last administered on 02/08/16at 23:13; Start 01/27/16 at 21:00; Stop 02/11/16 at 08:07 ; Status DC Miscellaneous Information 1 Q3D TD Last administered on 02/08/16at 21:00; Start 01/30/16 at 21:00; Stop 02/11/16 at 08:07; Status DC Acetaminophen/ Hydrocodone Bitart (Hycet 325-7.5 Mg Liq) 5 ml Q6H PRN PO PAIN SCALE 6 TO 10 Last administered on 02/02/16at 12:50; Start 01/30/16 at 10:15; Stop 02/03/16 at 15:46; Status DC Fentanyl (Duragesic 25 Mcg Patch.72 Hr) 1 patch Q3D TD Last administered on 03/04/16at 09:50; Start 02/03/16 at 09:00 Miscellaneous Information 1 Q3D TD Last administered on 03/01/16at 09:30; Start 02/03/16 at 11:00 Metoprolol Tartrate 12.5 mg 12.5 mg ONCE ONCE PO Last administered on at 05:10; Start 02/01/16 at 04:45; Stop 02/01/16 at 04:51; Status DC Pharmacy Profile Note 0 ml @ 0 mls/hr UNSCH OTHER ; Start 02/01/16 at 07:45; Stop 02/04/16 at 16:02; Status DC Vancomycin HCl 1000 mg/Sodium Chloride 250 ml @ 250 mls/hr ONCE ONCE IV Last administered on 02/01/16at 08:25; Start 02/01/16 at 08:00; Stop 02/01/16 at 08:59; Status DC Piperacillin Sod/ Tazobactam Sod 100 ml @ 200 mls/hr Q6H IV Last administered on 02/06/16at 09:43; Start 02/01/16 at 09:00; Stop 02/06/16 at 14:49; Status DC Sodium Chloride 1,000 ml @ 100 mls/hr Q10H IV ; Start 02/01/16 at 07:45; Stop at 09:16; Status DC Sodium Chloride 1,000 ml @ 999 mls/hr BOLUS ONCE IV Last administered on at 08:24; Start 02/01/16 at 07:45; Stop 02/01/16 at 08:45; Status DC Sodium Chloride (NS 1000 ml Inj) 1,000 ml @ 75 mls/hr [id number] IV Last administered on 02/04/16at 05:21; Start 02/01/16 at 09:15; Stop 02/04/16 at 09:04 ; Status DC Miscellaneous Information SPECIFIC LAB TO BE DRAWN:VANCO TROUGH DATE... ONCE ONCE XX Last administered on 02/03/16at 14:32; Start 02/03/16 at 13:45; Stop at 13:46; Status DC Diatrizoate Meglum/ Diatrizoate Sod ( Gastroview Liq) 18 ml ONCE ONCE PO Last administered on 02/01/16at 12:06; Start 02/01/16 at 12:00; Stop 02/01/16 at 12: 01; Status DC Albuterol/ Ipratropium 1 ampule 1 ampule Q6HR WHILE AWAKE NEB NEB Last administered on 02/05/16at 19:56; Start 02/01/16 at 20:00; Stop 02/05/16 at 20:00 ; Status DC Sodium Chloride (NS 1000 ml Inj) 1,000 ml @ 999 mls/hr BOLUS ONCE IV Last administered on 02/01/16at 16:10; Start 02/01/16 at 16:30; Stop 02/01/16 at 17:30; Status DC Iohexol (Omnipaque 350 Inj) 70 ml STK-MED ONCE IV Last administered on at 16:38; Start 02/01/16 at 16:38; Stop 02/01/16 at 16:39; Status DC Miscellaneous Information Patient in critical care unit? Ass... [id number] Last administered on 02/01/16at 18:15; Start 02/01/16 at 18:15 Chlorhexidine Gluconate (Chlorhexidine 2% Cloth) 3 pack DAILY@04 TOP Last administered on 02/04/16at 03:53; Start 02/02/16 at 04:00; Stop 02/06/16 at 04:01 ; Status DC Chlorhexidine Gluconate 3 pack 3 pack UNSCH PRN TOP HYGIENIC CARE; Start at 18:15; Stop 02/06/16 at 18:04; Status DC Sodium Chloride 1,000 ml @ 999 mls/hr BOLUS ONCE IV Last administered on at 19:30; Start 02/01/16 at 19:30; Stop 02/01/16 at 20:30; Status DC Sodium Chloride 1,000 ml @ 999 mls/hr BOLUS ONCE IV Last administered on at 20:29; Start 02/01/16 at 20:30; Stop 02/01/16 at 21:30; Status DC Vancomycin HCl 1000 mg/Sodium Chloride 250 ml @ 250 mls/hr Q18H IV Last administered on 02/03/16at 14:32; Start 02/02/16 at 02:00; Stop 02/03/16 at 17:31; Status DC Sodium Chloride 1,000 ml @ 999 mls/hr BOLUS ONCE IV Last administered on at 00:39; Start 02/02/16 at 00:30; Stop 02/02/16 at 01:30; Status DC Sodium Chloride 1,000 ml @ 999 mls/hr BOLUS ONCE IV Last administered on at 08:11; Start 02/02/16 at 08:00; Stop 02/02/16 at 09:00; Status DC Potassium Chloride/Sodium Chloride (NS + KCl 20 Meq Inj) 1,000 ml @ 125 mls/hr Q8H ONCE IV Last administered on 02/02/16at 23:52; Start 02/02/16 at 23:45; Stop 02/03/16 at 07:44; Status DC Acetaminophen/ Hydrocodone Bitart (Hycet 325-7.5 Mg Liq) 15 ml Q6H PRN PO PAIN SCALE 6 TO 10 Last administered on 03/04/16at 04:09; Start 02/03/16 at 16:15 Furosemide 20 mg 20 mg ONCE ONCE IV PUSH Last administered on 02/03/16at 17:16; Start 02/03/16 at 17:15; Stop 02/03/16 at 17:16; Status DC Vancomycin HCl/ Sodium Chloride (Vancomycin Inj/ NS 250 ml Inj) 275 ml @ 275 mls/hr Q18H IV Last administered on 02/04/16at 03:53; Start 02/04/16 at 04:00; Stop 02/04/16 at 15:19; Status DC Miscellaneous Information SPECIFIC LAB TO BE SHARON... ONCE ONCE XX ; Start at 09:45; Stop 02/06/16 at 09:46; Status Cancel Potassium Chloride (KCl 20 Meq Premix Inj) 100 ml @ 50 mls/hr Q2H IV Last administered on 02/04/16at 11:00; Start 02/04/16 at 09:00; Stop 02/04/16 at 12:59 ; Status DC Potassium Chloride (KCl) 20 meq ONCE ONCE PO Last administered on 02/04/16at 08 :46; Start 02/04/16 at 08:30; Stop 02/04/16 at 08:51; Status DC Potassium Chloride (KCl 40 Meq/30 ml Liq) 20 meq ONCE ONCE G-TUBE Last administered on 02/04/16at 10:00; Start 02/04/16 at 09:00; Stop 02/04/16 at 09:01 ; Status DC Furosemide 20 mg 20 mg ONCE ONCE IV PUSH Last administered on 02/04/16at 10:05 ; Start 02/04/16 at 09:00; Stop 02/04/16 at 09:01; Status DC Magnesium Sulfate/ Dextrose (Magnesium Sulfate 1 Gm Premix) 100 ml @ 100 mls/ hr ONCE ONCE IV Last administered on 02/04/16at 09:08; Start 02/04/16 at 09:00 ; Stop 02/04/16 at 09:59; Status DC Escitalopram Oxalate 20 mg 20 mg HS PO Last administered on 02/12/16at 21:34; Start 02/04/16 at 21:00; Stop 02/14/16 at 17:16; Status DC Potassium Chloride 100 ml @ 50 mls/hr Q2H IV Last administered on 02/05/16at 11 :00; Start 02/05/16 at 09:00; Stop 02/05/16 at 12:59; Status DC Magnesium Sulfate/ Dextrose (Magnesium Sulfate 1 Gm Premix) 100 ml @ 100 mls/ hr ONCE ONCE IV Last administered on 02/05/16at 08:00; Start 02/05/16 at 08:00 ; Stop 02/05/16 at 08:59; Status DC Alprazolam (Xanax) 0.25 mg Q6H PRN PO agitation; Start 02/05/16 at 09:45; Stop 02/05/16 at 09:53; Status DC Furosemide (Lasix) 20 mg DAILY PO Last administered on 02/09/16at 10:07; Start 02/06/16 at 09:00; Stop 02/10/16 at 08:59; Status DC Alprazolam 0.5 mg 0.5 mg Q8HR G-TUBE Last administered on 02/14/16at 13:51; Start 02/05/16 at 14:00; Stop 02/14/16 at 17:15; Status DC Potassium Chloride (KCl 20 Meq Premix Inj) 100 ml @ 50 mls/hr Q2H IV Last administered on 02/06/16at 18:36; Start 02/06/16 at 16:00; Stop 02/06/16 at 19:59 ; Status DC Potassium Bicarb/ Potassium Chloride (K-Lyte Cl Eff) 50 meq ONCE ONCE PO Last administered on 02/06/16at 15:51; Start 02/06/16 at 15:30; Stop 02/06/16 at 15:31; Status DC Levofloxacin (Levaquin) 750 mg DAILY PO Last administered on 02/10/16at 09:00; Start 02/07/16 at 09:00; Stop 02/11/16 at 08:59; Status DC Sennosides (Senna Liq) 8.8 mg Q12HR PRN GT CONSTIPATION; Start 02/09/16 at 09: 00 Pantoprazole Sodium (Protonix) 40 mg DAILY PO Last administered on 02/15/16at 11 :44; Start 02/14/16 at 13:00; Stop 02/15/16 at 12:58; Status DC Ondansetron HCl (Zofran Odt) 4 mg ONCE ONCE PO Last administered on at 13:51; Start 02/14/16 at 12:45; Stop 02/14/16 at 12:46; Status DC Furosemide (Lasix Inj) 40 mg ONCE ONCE IV PUSH Last administered on 02/14/16at 17:17; Start 02/14/16 at 16:45; Stop 02/14/16 at 16:46; Status DC Alprazolam 0.25 mg 0.25 mg Q8H PRN G-[id number] anxiety Last administered on at 17:57; Start 02/14/16 at 17:15 Levofloxacin/ Dextrose 150 ml @ 100 mls/hr Q24H IV Last administered on at 21:00; Start 02/14/16 at 21:00; Stop 02/15/16 at 08:43; Status DC Piperacillin Sod/ Tazobactam Sod (Zosyn 4.5 Gm Premix) 100 ml @ 200 mls/hr Q6H IV Last administered on 02/15/16at 11:43; Start 02/15/16 at 11:00; Stop at 12:47; Status DC Ondansetron HCl 4 mg 4 mg TID PO Last administered on 03/04/16at 09:52; Start at 13:00 Ceftriaxone Sodium/Sodium Chloride (Rocephin Inj/NS Inj) 100 ml @ 200 mls/hr Q24H IV Last administered on 02/24/16at 13:42; Start 02/15/16 at 13:00; Stop at 17:00; Status DC Pantoprazole Sodium (Protonix) 40 mg BID PO Last administered on 02/22/16at 21: 32; Start 02/15/16 at 21:00; Stop 02/23/16 at 16:36; Status DC Docusate Sodium (Colace) 100 mg BID PO ; Start 02/15/16 at 13:00; Stop 02/15/16 at 15:33; Status DC Sennosides (Senokot) 17.2 mg DAILY PO Last administered on 03/04/16at 09:51; Start 02/15/16 at 13:00 Lactulose (Lactulose Liq) 30 ml ONCE ONCE PO Last administered on 02/15/16at 13 :57; Start 02/15/16 at 13:00; Stop 02/15/16 at 13:01; Status DC Sodium Polystyrene Sulfonate (Kayexalate Liq) 30 gm ONCE ONCE GT Last administered on 02/15/16at 16:14; Start 02/15/16 at 15:45; Stop 02/15/16 at 15:46 ; Status DC Docusate Sodium 100 mg 100 mg Q12HR PO ; Start 02/15/16 at 21:00; Status UNV Dextrose/Sodium Chloride (D5W-NS 1000 ml Inj) 1,000 ml @ 75 mls/hr [id number] IV Last administered on 02/16/16at 05:10; Start 02/15/16 at 15:45; Stop 02/16/16 at 13:42; Status DC Docusate Sodium (Colace) 100 mg Q12HR PO Last administered on 03/04/16at 09:52; Start 02/15/16 at 21:00 Hydromorphone HCl (Dilaudid Pf Inj) 0.2 mg ONCE ONCE IV PUSH Last administered on 02/18/16at 03:14; Start 02/18/16 at 02:45; Stop 02/18/16 at 02:46 ; Status DC Hydromorphone HCl (Dilaudid Pf Inj) 0.2 mg Q4H PRN IV PUSH BREAKTHROUGH PAIN Last administered on 02/22/16at 20:43; Start 02/18/16 at 13:15 Influenza Virus Vaccine (Flu (Quadrivalent) Vaccine Inj) 0.5 ml ONCE ONCE IM Last administered on 02/21/16at 11:39; Start 02/21/16 at 10:00; Stop 02/21/16 at 10:01; Status DC Famotidine (Pepcid) 20 mg BID PO ; Start 02/23/16 at 21:00; Stop 02/23/16 at 21: 00; Status DC Lansoprazole (Prevacid Odt) 30 mg DAILY NG Last administered on 03/04/16at 09:52 ; Start 02/24/16 at 09:00 Temazepam (Restoril) 15 mg HS PRN PO INSOMNIA Last

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
[2016-03-04] MEDS: VANCOMYCIN 1,000 MG/NS 250 ML IV SCH ×4 (13:13→23:52)
--- NOTE | 2016-03-04 13:58 | EKG ---
Date Performed: 03/03/2016 Time Performed: 07:42:26 PTAGE: 75 years EKG: Sinus tachycardia. Normal ECG except for rate PREVIOUS TRACING : 02/14/2016 16.39 Since previous tracing, no significant change noted DOCTOR: Navarro Delgado Interpretating Date/Time 03/04/2016 13:56:05
[2016-03-04] MEDS: HYDROmorphone HCL PF 1 MG/ML VIAL IV PUSH PRN (16:34)
[2016-03-04] MEDS: ENOXAPARIN SODIUM 40 MG/0.4 ML SYRINGE SQ SCH (22:11)
[2016-03-04] MEDS ORDERED: PHARMACY ORDERED LAB XX ONE (22:45)
[2016-03-05] VITALS (9 sets, daily range): BP systolic 107–131; BP diastolic 57–76; PULSE 73–94; RESP 18–20; TEMP 96.5–98; O2SAT 94–98
--- NOTE | 2016-03-05 06:44 | RADRPT ---
EXAM DATE/TIME: 03/05/2016 06:16 [facility] COMPARISON: ABDOMEN KUB ONLY, March 03, 2016, 6:18. INDICATIONS : Abdominal pain. MEDICAL HISTORY : None. SURGICAL HISTORY : None. ENCOUNTER: Subsequent ACUITY: 2 days PAIN SCORE: 4/10 LOCATION: abdomen, all quadrants. FINDINGS: Supine view of the abdomen was performed. The GJ tube remains in good position. There is moderate ai r and stool throughout the colon. The abdominal bowel gas pattern is normal. No abnormal masses, hannah cifications, or organomegaly is seen. The osseous structures are unremarkable. Upper right lumbar sc oliosis. CONCLUSION: Normal examination. Walker Durbin MD on March 05, 2016 at 6:40 Board Certified Radiologist. This report was verified electronically.
[2016-03-05] MEDS: DOCUSATE SODIUM 100 MG CAP PO SCH ×2 (09:00→21:32)
[2016-03-05] MEDS: ONDANSETRON ODT 4 MG TAB PO SCH ×3 (09:07→16:58)
[2016-03-05] MEDS: LANSOPRAZOLE SOLUTAB 30 MG TAB NG SCH (09:07)
[2016-03-05] MEDS: levETIRAcetam 500 MG/5 ML UDC TUBE SCH ×2 (09:07→21:27)
[2016-03-05] MEDS: SENNOSIDES 8.6 MG TAB PO SCH (09:07)
[2016-03-05] MEDS: SODIUM CHLORIDE 0.9% FLUSH 5 ML FLUSH IVF SCH ×2 (09:08→21:32)
[2016-03-05] MEDS: CEFEPIME INJ 2,000 MG in SODIUM CHLORIDE 0.9% INJ 100 ML IV SCH ×2 (09:08→21:37)
[2016-03-05] MEDS: METOCLOPRAMIDE HCL SYRUP 10 MG/10 ML UDC G-TUBE SCH ×2 (09:08→21:23)
[2016-03-05] MEDS: HYDROmorphone HCL PF 1 MG/ML VIAL IV PUSH PRN ×2 (09:10→21:21)
[2016-03-05] MEDS: DEXT 5%-NACL 0.9% 1000 ML INJ 1,000 ML IV SCH (10:45)
[2016-03-05] MEDS: VANCOMYCIN 1,000 MG/NS 250 ML IV SCH ×4 (11:24→23:16)
[2016-03-05 12:01] LABS: AUTOMATED NEUTROPHIL # 2.2 TH/MM3 (1.8-7.7); BASOPHIL % 0.7 % (0.0-2.0); EOSINOPHIL # 0.2 TH/MM3 (0-0.4); EOSINOPHIL % 4.6 % (0.0-4.0); HEMATOCRIT 26.4 % (39.0-51.0); HEMO FLAGS DIFF FINAL; LYMPH % 31.7 % (9.0-44.0); LYMPHOCYTE # 1.3 TH/MM3 (1.0-4.8); MEAN CELL VOLUME 93.4 FL (80.0-100.0); MEAN CORPUSCULAR HEMOGLOBIN 32.7 PG (27.0-34.0); MONO % 9.3 % (0.0-8.0); NEUT % 53.7 % (16.0-70.0); PLATELET COUNT 232 TH/MM3 (150-450); RED BLOOD COUNT 2.82 MIL/MM3 (4.50-5.90); RED CELL DISTRIBUTION WIDTH 15.5 % (11.6-17.2); WHITE BLOOD COUNT 4.2 TH/MM3 (4.0-11.0)
--- NOTE | 2016-03-05 13:09 | HHI.PR ---
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 Midazolam HCl (Versed Inj) 10 mg ONCE ONCE IV PUSH Last administered on at 15:19; Start 12/14/15 at 14:45; Stop 12/14/15 at 14:51; Status DC Vecuronium [place] (Norcuron 10 Mg Inj) 10 mg ONCE ONCE IV PUSH Last administered on 12/14/15at 15:19; Start 12/14/15 at 14:45; Stop 12/14/15 at 14:51 ; Status DC Fentanyl Citrate (Sublimaze Inj) 250 mcg ONCE ONCE IV PUSH Last administered on 12/14/15at 15:20; Start 12/14/15 at 14:45; Stop 12/14/15 at 14:51; Status DC Iohexol (Omnipaque 350 Inj) 80 ml STK-MED ONCE G-TUBE Last administered on 12/13at 15:00; Start 12/14/15 at 14:55; Stop 12/14/15 at 14:56; Status DC Albuterol/ Ipratropium (Duoneb Neb) 1 ampule Q6HR NEB NEB Last administered on 12/28/15at 08:04; Start 12/15/15 at 10:00; Stop 12/28/15 at 13:16; Status DC Diatrizoate Meglum/ Diatrizoate Sod ( Gastroview Liq) 18 ml ONCE ONCE PO Last administered on 12/15/15at 11:54; Start 12/15/15 at 11:15; Stop 12/15/15 at 11:16; Status DC Rocuronium [place] (Zemuron Inj) 50 mg BOLUS ONCE IV ; Start 12/15/15 at 14:30 ; Stop 12/15/15 at 14:31; Status DC Iohexol (Omnipaque 350 Inj) 96 ml STK-MED ONCE IV Last administered on at 14:56; Start 12/15/15 at 14:56; Stop 12/15/15 at 14:57; Status DC Midazolam HCl (Versed Inj) 5 mg STK-MED ONCE .ROUTE ; Start 12/16/15 at 08:41; Stop 12/16/15 at 08:42; Status DC Midazolam HCl (Versed Inj) 5 mg ONCE STAT IV Last administered on 12/16/15at 09 :30; Start 12/16/15 at 09:30; Stop 12/16/15 at 09:31; Status DC Miscellaneous Information SPECIFIC LAB TO BE SHARON... ONCE ONCE XX ; Start at 08:45; Stop 12/19/15 at 08:45; Status DC Midazolam HCl (Versed Inj) 2 mg Q2H PRN IV PUSH agitation Last administered on 12/20/15at 22:29; Start 12/17/15 at 21:15; Stop 12/21/15 at 13:16; Status DC Metoclopramide HCl (Reglan Inj) 10 mg Q8HR IV PUSH Last administered on at 12:51; Start 12/18/15 at 14:00; Stop 12/24/15 at 12:46; Status DC Lactulose 30 ml 30 ml Q12H PO ; Start 12/18/15 at 13:00; Stop 12/19/15 at 10:06 ; Status DC Potassium Phosphate/Sodium Chloride (Potassium Phosphate Inj/NS 250 ml Inj) 260 ml @ 43.333 mls/ hr ONCE ONCE IV Last administered on 12/19/15at 10:25; Start 12/19/15 at 10:00; Stop 12/19/15 at 15:59; Status DC Pantoprazole Sodium (Protonix Inj) 40 mg Q24H IV PUSH Last administered on 12/22at 12:51; Start 12/19/15 at 12:00; Stop 12/24/15 at 11:37; Status DC Metoprolol Tartrate (Lopressor Inj) 5 mg Q4HR IV PUSH Last administered on 12/20at 12:36; Start 12/19/15 at 12:00; Stop 12/21/15 at 12:49; Status DC Fentanyl (Duragesic 50 Mcg Patch.72 Hr) 1 patch Q3D TD Last administered on 01/31/16at 08:16; Start 12/20/15 at 09:00; Stop 02/03/16 at 08:45; Status DC Miscellaneous Information 1 Q3D TD Last administered on 01/31/16at 08:16; Start 12/23/15 at 09:00; Stop 01/31/16 at 10:57; Status DC Acetaminophen/ Hydrocodone Bitart ([place] 5-325 Mg) 1 tab Q6H PRN PO PAIN SCALE 1 TO 5; Start 12/20/15 at 09:00; Stop 12/21/15 at 13:45; Status DC Acetaminophen/ Hydrocodone Bitart ([place] 5-325 Mg) 2 tab Q6H PRN PO PAIN SCALE 6 TO 10; Start 12/20/15 at 09:00; Stop 12/21/15 at 13:45; Status DC Morphine Sulfate (Morphine Inj) 2 mg Q2HR PRN IV PUSH PAIN SCALE 8 TO 10 Last administered on 12/24/15at 14:44; Start 12/20/15 at 09:00; Stop 12/25/15 at 13:18 ; Status DC Morphine Sulfate (Morphine Inj) 4 mg Q4HR PRN IV PUSH PAIN SCALE 6 TO 10 Last administered on 12/20/15at 22:32; Start 12/20/15 at 09:00; Stop 12/21/15 at 13:45 ; Status DC Enoxaparin Sodium (Lovenox Inj) 30 mg Q12H SQ Last administered on 01/16/16at 22 :26; Start 12/20/15 at 10:00; Stop 01/17/16 at 09:48; Status DC Metoprolol Tartrate (Lopressor Inj) 5 mg ONCE ONCE IV PUSH Last administered on 12/21/15at 13:22; Start 12/21/15 at 12:45; Stop 12/21/15 at 12:56; Status DC Metoprolol Tartrate (Lopressor Inj) 10 mg Q4HR IV PUSH Last administered on at 09:28; Start 12/21/15 at 16:00; Stop 12/24/15 at 11:35; Status DC Olanzapine 5 mg 5 mg Q8H PRN PO AGITATION AND/OR HALLUCINATION Last administered on 12/31/15at 12:37; Start 12/21/15 at 13:00; Stop 01/14/16 at 13:04 ; Status DC Potassium Chloride 100 ml @ 50 mls/hr Q2H PRN IV For Potassium 2.8 - 3.2 mEq/L ; Start 12/21/15 at 13:00; Stop 01/13/16 at 21:27; Status DC Potassium Chloride (KCl 20 Meq Premix Inj) 100 ml @ 50 mls/hr Q2H PRN IV For Potassium 2.8 - 3.2 mEq/L; Start 12/21/15 at 13:00; Stop 01/13/16 at 21:27; Status DC Potassium Chloride 40 meq 40 meq UNSCH PRN PO/TUBE For Potassium 3.3 - 3.5 mEq/ L Last administered on 12/21/15at 15:19; Start 12/21/15 at 13:00; Stop 01/13/16 at 21:27; Status DC Potassium Chloride 100 ml @ 25 mls/hr UNSCH PRN IV For Potassium 3.3 - 3.5 mEq /L; Start 12/21/15 at 13:00; Stop 01/13/16 at 21:27; Status DC Potassium Chloride 100 ml @ 50 mls/hr Q2H PRN IV For Potassium 3.3 - 3.5 mEq/L ; Start 12/21/15 at 13:00; Stop 01/13/16 at 21:27; Status DC Magnesium Sulfate/ Sodium Chloride (Magnesium Sulfate Inj/NS Inj) 100 ml @ 50 mls/hr UNSCH PRN IV For Magnesium 0.9 - 1.1 mg/dL; Start 12/21/15 at 13:00; Stop 01/13/16 at 21:27; Status DC Magnesium Oxide 800 mg 800 mg UNSCH PRN PO For Magnesium 1.2 - 1.6 mg/dL; Start 12/21/15 at 13:00; Stop 01/13/16 at 21:27; Status DC Magnesium Sulfate/ Sodium Chloride (Magnesium Sulfate Inj/NS Inj) 100 ml @ 50 mls/hr UNSCH PRN IV For Magnesium 1.2 - 1.6 mg/dL; Start 12/21/15 at 13:00; Stop 01/13/16 at 21:27; Status DC Potassium Phosphate 2000 mg 2,000 mg Q4H PRN PO For Phosphorus < 2.5 mg/dL; Start 12/21/15 at 13:00; Stop 01/13/16 at 21:27; Status DC Sodium Phosphate/ Sodium Chloride (Sodium Phosphate Inj/NS 250 ml Inj) 250 ml @ 42 mls/hr UNSCH PRN IV For Phosphorus < 2.5 mg/dL Last administered on at 11:18; Start 12/21/15 at 13:00; Stop 01/13/16 at 21:27; Status DC Potassium Chloride (KCl 40 Meq/30 ml Liq) 40 meq UNSCH PRN PO/TUBE SEE LABEL COMMENTS; Start 12/21/15 at 13:00; Stop 01/13/16 at 21:27; Status DC Potassium Phosphate 2000 mg 2,000 mg UNSCH PRN PO/TUBE SEE LABEL COMMENTS; Start 12/21/15 at 13:00; Stop 01/13/16 at 21:27; Status DC Potassium Phosphate/Sodium Chloride (Potassium Phosphate Inj/NS 250 ml Inj) 260 ml @ 42 mls/hr UNSCH PRN IV SEE LABEL COMMENTS; Start 12/21/15 at 13:00; Stop 01/13/16 at 21:27; Status DC Oxycodone HCl (Roxicodone Intensol Liq) 5 mg Q4H PRN PO PAIN SCALE 4 TO 7 Last administered on 01/13/16at 11:08; Start 12/21/15 at 13:45; Stop 01/14/16 at 13:04 ; Status DC Labetalol HCl (Trandate Inj) 20 mg Q1H PRN IV PUSH SBP>170, DBP>90, HR>65 Last administered on 12/27/15at 10:22; Start 12/21/15 at 14:30; Stop 01/13/16 at 21:27 ; Status DC Levetriacetam (Keppra Liq) 500 mg Q12HR TUBE Last administered on 03/05/16at 09:07; Start 12/22/15 at 21:00 Acetaminophen (Tylenol 650 Mg/ 20 ml Liq) 650 mg Q6H PRN J-TUBE PAIN SCALE 1 TO 5, T > 101 Last administered on 02/21/16at 06:23; Start 12/22/15 at 11:00 Labetalol HCl (Trandate Inj) 40 mg NOW ONCE IVP ; Start 12/23/15 at 12:00; Stop 12/23/15 at 12:01; Status DC Acetaminophen 650 mg 650 mg NOW ONCE J-TUBE ; Start 12/23/15 at 13:45; Stop at 13:46; Status DC Vancomycin HCl 1250 mg/Sodium Chloride 275 ml @ 250 mls/hr ONCE ONCE IV Last administered on 12/23/15at 17:14; Start 12/23/15 at 16:00; Stop 12/23/15 at 17:05 ; Status DC Piperacillin Sod/ Tazobactam Sod (Zosyn 3.375 Gm Premix) 50 ml @ 100 mls/hr Q8H IV Last administered on 01/05/16at 15:51; Start 12/23/15 at 16:00; Stop 04/11 at 18:15; Status DC Metoprolol Tartrate (Lopressor) 25 mg Q8HR TUBE Last administered on 01/15/16at 13:14; Start 12/24/15 at 14:00; Stop 01/15/16 at 15:23; Status DC Pantoprazole Sodium (Protonix Inj) 40 mg Q24H IV PUSH Last administered on 12/23at 12:21; Start 12/24/15 at 12:00; Stop 12/24/15 at 13:00; Status DC Ranitidine HCl (Zantac Liq) 150 mg Q12HR TUBE Last administered on 01/15/16at 10:14; Start 12/25/15 at 09:00; Stop 01/15/16 at 15:24; Status DC Metoclopramide HCl (Reglan Liq) 10 mg Q12HR G-TUBE Last administered on at 09:08; Start 12/24/15 at 21:00 Alprazolam (Xanax) 0.25 mg Q8HR PO Last administered on 01/13/16at 13:47; Start 12/25/15 at 14:00; Stop 01/14/16 at 13:04; Status DC Sennosides (Senna Liq) 8.8 mg ONCE ONCE PO Last administered on 12/25/15at 12: 03; Start 12/25/15 at 12:00; Stop 12/25/15 at 12:01; Status DC Sennosides (Senna Liq) 8.8 mg Q12HR PO Last administered on 01/13/16at 11:06; Start 12/25/15 at 21:00; Stop 01/14/16 at 13:04; Status DC Morphine Sulfate (Morphine Inj) 4 mg Q3H PRN IV PUSH PAIN SCALE 8 TO 10 Last administered on 01/17/16at 02:36; Start 12/25/15 at 13:15; Stop 01/17/16 at 09:45 ; Status DC Methylprednisolone Sodium Succinate (SoluMEDROL INJ) 40 mg Q8HR IV PUSH Last administered on 12/27/15at 05:50; Start 12/25/15 at 22:00; Stop 12/27/15 at 07:00; Status DC Midazolam HCl (Versed Inj) 10 mg ONCE ONCE IV Last administered on 12/26/15at 11 :22; Start 12/26/15 at 10:30; Stop 12/26/15 at 10:41; Status DC Fentanyl Citrate (Sublimaze Inj) 250 mcg ONCE ONCE IV PUSH Last administered on 12/26/15at 11:22; Start 12/26/15 at 10:30; Stop 12/26/15 at 10:41; Status DC Rocuronium [place] (Zemuron Inj) 100 mg BOLUS ONCE IV Last administered on 12/25at 11:21; Start 12/26/15 at 10:30; Stop 12/26/15 at 10:44; Status DC Acetylcysteine (Mucomyst 20% Neb) 2 ml Q8HR NEB NEB Last administered on at 07:34; Start 12/27/15 at 00:00; Stop 12/31/15 at 00:00; Status DC Propofol (Diprivan 200 Mg/20 ml Inj) 250 mg STK-MED ONCE IV PUSH ; Start at 13:23; Stop 12/30/15 at 13:46; Status DC Diatrizoate Meglum/ Diatrizoate Sod ( Gastroview Liq) 18 ml ONCE ONCE PO ; Start 12/30/15 at 16:00; Stop 12/30/15 at 16:01; Status Cancel Magnesium Hydroxide 30 ml 30 ml BID PRN PEG CONSTIPATION Last administered on at 09:42; Start 01/02/16 at 19:15; Stop 01/15/16 at 15:23; Status DC Dextrose/Sodium Chloride (D5W-1/2 NS 1000 ml Inj) 1,000 ml @ 60 mls/hr [id number] IV Last administered on 01/05/16at 17:08; Start 01/03/16 at 16:30; Stop 01/06/16 at 08:12; Status DC Ephedrine Sulfate (ePHEDrine/NS 50 MG/5 ML SYR) 50 mg STK-MED ONCE IV ; Start at 12:00; Stop 01/06/16 at 10:00; Status DC Phenylephrine HCl 1000 mcg 1,000 mcg STK-MED ONCE IV ; Start 12/30/15 at 12:00; Stop 01/06/16 at 10:00; Status DC Dextrose/Sodium Chloride (D5W-NS 1000 ml Inj) 1,000 ml @ 42 mls/hr [id number] IV Last administered on 01/13/16at 03:14; Start 01/06/16 at 11:00; Stop 01/15/16 at 14:53; Status DC Hyoscyamine Sulfate (Levsin Inj) 0.125 mg Q6H PRN IVP SECRETIONS Last administered on 01/16/16at 10:43; Start 01/10/16 at 21:45; Stop 01/17/16 at 09:49 ; Status DC Hyoscyamine Sulfate 0.125 mg 0.125 mg Q6H PRN SL SECRETIONS Last administered on 02/03/16at 17:17; Start 01/10/16 at 21:45; Stop 02/10/16 at 11:47; Status DC Levetriacetam (Keppra 500 Mg Premix Inj) 100 ml @ 400 mls/hr BOLUS ONCE IV Last administered on 01/13/16at 21:54; Start 01/13/16 at 22:00; Stop 01/13/16 at 22:14; Status DC Metoprolol Tartrate (Lopressor Inj) 5 mg ONCE ONCE IV PUSH Last administered on 01/13/16at 21:54; Start 01/13/16 at 22:00; Stop 01/13/16 at 22:01; Status DC Alprazolam (Xanax) 0.25 mg Q8HR G-TUBE Last administered on 02/05/16at 04:08; Start 01/14/16 at 14:00; Stop 02/05/16 at 09:53; Status DC Olanzapine (ZyPREXA ZYDIS ODT) 5 mg Q8H PRN .XX AGITATION AND/OR HALLUCINATION Last administered on 02/05/16at 04:08; Start 01/14/16 at 21:00 Oxycodone HCl (Roxicodone Intensol Liq) 5 mg Q4H PRN G-TUBE PAIN SCALE 4 TO 7 Last administered on 01/23/16at 12:11; Start 01/14/16 at 13:45; Stop 01/26/16 at 10:13; Status DC Sennosides (Senna Liq) 8.8 mg Q12HR GT Last administered on 02/08/16at 10:57; Start 01/14/16 at 21:00; Stop 02/09/16 at 08:49; Status DC Lorazepam 1 mg 1 mg Q6H PRN IV PUSH SEIZURES Last administered on 01/18/16 10: 51; Start 01/14/16 at 13:00; Stop 01/20/16 at 11:19; Status DC Potassium Chloride/Dextrose/ Sod Cl (D5-1/2 NS + KCl 20 Meq Inj) 1,000 ml @ 84 mls/hr [id number] IV Last administered on 01/16/16 22:27; Start 01/15/16 at 15:00 ; Stop 01/17/16 at 09:45; Status DC Magnesium Hydroxide (Milk Of Magnesia Liq) 30 ml BID PRN G-TUBE CONSTIPATION; Start 01/15/16 at 15:30 Metoprolol Tartrate (Lopressor) 25 mg Q8HR G-TUBE Last administered on at 21:05; Start 01/15/16 at 22:00; Stop 01/26/16 at 10:13; Status DC Ranitidine HCl (Zantac Liq) 150 mg Q12HR G-TUBE Last administered on 08:44; Start 01/15/16 at 21:00; Stop 02/14/16 at 12:36; Status DC Albuterol Sulfate (Albuterol Neb) 0.63 mg QID NEB NEB Last administered on 11:36; Start 01/15/16 at 16:00; Stop 01/23/16 at 13:50; Status DC Morphine Sulfate (Morphine Inj) 8 mg STK-MED ONCE .ROUTE Last administered on 16:41; Start 01/16/16 at 16:41; Stop 01/16/16 at 16:42; Status DC Fentanyl Citrate (Sublimaze Inj) 100 mcg STK-MED ONCE .ROUTE Last administered on 01/16/16 16:59; Start 01/16/16 at 16:59; Stop 01/16/16 at 17:00; Status DC Midazolam HCl (Versed Inj) 2 mg STK-MED ONCE .ROUTE Last administered on 8/22/ 16at 16:59; Start 01/16/16 at 16:59; Stop 01/16/16 at 17:00; Status DC Iohexol (Omnipaque 350 Inj) 25 ml STK-MED ONCE G-TUBE Last administered on 01/15at 17:20; Start 01/16/16 at 17:20; Stop 01/16/16 at 17:36; Status DC Enoxaparin Sodium (Lovenox Inj) 40 mg Q24H SQ ; Start 01/17/16 at 22:00; Stop at 22:00; Status DC Sodium Biphosphate/ Sodium Phosphate (Fleets Enema (Adult)) 133 ml UNSCH PRN [place] CONSTIPATION; Start 01/17/16 at 10:00 Enoxaparin Sodium (Lovenox Inj) 40 mg Q24H SQ Last administered on 03/04/16at 22 :11; Start 01/17/16 at 22:00 Morphine Sulfate (Morphine Inj) 4 mg ONCE ONCE IV PUSH Last administered on at 00:38; Start 01/20/16 at 00:15; Stop 01/20/16 at 00:17; Status DC Morphine Sulfate 4 mg 4 mg Q3H PRN IV PUSH PAIN SCALE 7 TO 10 Last administered on 01/26/16at 06:07; Start 01/20/16 at 08:30; Stop 01/26/16 at 10:11; Status DC Levofloxacin/ Dextrose (Levaquin 750 Mg Premix Inj) 150 ml @ 100 mls/hr Q24H IV Last administered on 01/29/16at 12:08; Start 01/20/16 at 12:00; Stop 01/29/16 at 19:00; Status DC Morphine Sulfate (Morphine Inj) 2 mg Q4HR PRN IV PUSH BREAKTHROUGH PAIN Last administered on 01/27/16at 19:23; Start 01/26/16 at 12:00; Stop 01/30/16 at 08:13; Status DC Acetaminophen/ Hydrocodone Bitart (Hycet 325-7.5 Mg Liq) 10 ml Q6H PRN PO PAIN SCALE 6 TO 10 Last administered on 01/30/16at 01:03; Start 01/26/16 at 10:15; Stop 01/30/16 at 08:13; Status DC Metoprolol Tartrate (Lopressor) 12.5 mg Q12HR G-TUBE Last administered on 09:30; Start 01/26/16 at 21:00; Stop 03/03/16 at 06:26; Status DC Promethazine HCl (Phenergan Inj) 12.5 mg Q4H PRN IM nausea Last administered on 03/03/16at 03:43; Start 01/27/16 at 20:15 Scopolamine (Transderm-Scop 1.5 Mg Patch.72 Hr) 1 patch Q3D TD Last administered on 02/08/16at 23:13; Start 01/27/16 at 21:00; Stop 02/11/16 at 08:07 ; Status DC Miscellaneous Information 1 Q3D TD Last administered on 02/08/16at 21:00; Start 01/30/16 at 21:00; Stop 02/11/16 at 08:07; Status DC Acetaminophen/ Hydrocodone Bitart (Hycet 325-7.5 Mg Liq) 5 ml Q6H PRN PO PAIN SCALE 6 TO 10 Last administered on 02/02/16at 12:50; Start 01/30/16 at 10:15; Stop 02/03/16 at 15:46; Status DC Fentanyl (Duragesic 25 Mcg Patch.72 Hr) 1 patch Q3D TD Last administered on 03/04/16at 09:50; Start 02/03/16 at 09:00 Miscellaneous Information 1 Q3D TD Last administered on 03/04/16at 11:00; Start 02/03/16 at 11:00 Metoprolol Tartrate 12.5 mg 12.5 mg ONCE ONCE PO Last administered on at 05:10; Start 02/01/16 at 04:45; Stop 02/01/16 at 04:51; Status DC Pharmacy Profile Note 0 ml @ 0 mls/hr UNSCH OTHER ; Start 02/01/16 at 07:45; Stop 02/04/16 at 16:02; Status DC Vancomycin HCl 1000 mg/Sodium Chloride 250 ml @ 250 mls/hr ONCE ONCE IV Last administered on 02/01/16at 08:25; Start 02/01/16 at 08:00; Stop 02/01/16 at 08:59; Status DC Piperacillin Sod/ Tazobactam Sod 100 ml @ 200 mls/hr Q6H IV Last administered on 02/06/16at 09:43; Start 02/01/16 at 09:00; Stop 02/06/16 at 14:49; Status DC Sodium Chloride 1,000 ml @ 100 mls/hr Q10H IV ; Start 02/01/16 at 07:45; Stop at 09:16; Status DC Sodium Chloride 1,000 ml @ 999 mls/hr BOLUS ONCE IV Last administered on at 08:24; Start 02/01/16 at 07:45; Stop 02/01/16 at 08:45; Status DC Sodium Chloride (NS 1000 ml Inj) 1,000 ml @ 75 mls/hr [id number] IV Last administered on 02/04/16at 05:21; Start 02/01/16 at 09:15; Stop 02/04/16 at 09:04 ; Status DC Miscellaneous Information SPECIFIC LAB TO BE DRAWN:VANCO TROUGH DATE... ONCE ONCE XX Last administered on 02/03/16at 14:32; Start 02/03/16 at 13:45; Stop at 13:46; Status DC Diatrizoate Meglum/ Diatrizoate Sod ( Gastroview Liq) 18 ml ONCE ONCE PO Last administered on 02/01/16at 12:06; Start 02/01/16 at 12:00; Stop 02/01/16 at 12: 01; Status DC Albuterol/ Ipratropium 1 ampule 1 ampule Q6HR WHILE AWAKE NEB NEB Last administered on 02/05/16at 19:56; Start 02/01/16 at 20:00; Stop 02/05/16 at 20:00 ; Status DC Sodium Chloride (NS 1000 ml Inj) 1,000 ml @ 999 mls/hr BOLUS ONCE IV Last administered on 02/01/16at 16:10; Start 02/01/16 at 16:30; Stop 02/01/16 at 17:30; Status DC Iohexol (Omnipaque 350 Inj) 70 ml STK-MED ONCE IV Last administered on at 16:38; Start 02/01/16 at 16:38; Stop 02/01/16 at 16:39; Status DC Miscellaneous Information Patient in critical care unit? Ass... [id number] Last administered on 02/01/16at 18:15; Start 02/01/16 at 18:15 Chlorhexidine Gluconate (Chlorhexidine 2% Cloth) 3 pack DAILY@04 TOP Last administered on 02/04/16at 03:53; Start 02/02/16 at 04:00; Stop 02/06/16 at 04:01 ; Status DC Chlorhexidine Gluconate 3 pack 3 pack UNSCH PRN TOP HYGIENIC CARE; Start at 18:15; Stop 02/06/16 at 18:04; Status DC Sodium Chloride 1,000 ml @ 999 mls/hr BOLUS ONCE IV Last administered on at 19:30; Start 02/01/16 at 19:30; Stop 02/01/16 at 20:30; Status DC Sodium Chloride 1,000 ml @ 999 mls/hr BOLUS ONCE IV Last administered on at 20:29; Start 02/01/16 at 20:30; Stop 02/01/16 at 21:30; Status DC Vancomycin HCl 1000 mg/Sodium Chloride 250 ml @ 250 mls/hr Q18H IV Last administered on 02/03/16at 14:32; Start 02/02/16 at 02:00; Stop 02/03/16 at 17:31; Status DC Sodium Chloride 1,000 ml @ 999 mls/hr BOLUS ONCE IV Last administered on at 00:39; Start 02/02/16 at 00:30; Stop 02/02/16 at 01:30; Status DC Sodium Chloride 1,000 ml @ 999 mls/hr BOLUS ONCE IV Last administered on at 08:11; Start 02/02/16 at 08:00; Stop 02/02/16 at 09:00; Status DC Potassium Chloride/Sodium Chloride (NS + KCl 20 Meq Inj) 1,000 ml @ 125 mls/hr Q8H ONCE IV Last administered on 02/02/16at 23:52; Start 02/02/16 at 23:45; Stop 02/03/16 at 07:44; Status DC Acetaminophen/ Hydrocodone Bitart (Hycet 325-7.5 Mg Liq) 15 ml Q6H PRN PO PAIN SCALE 6 TO 10 Last administered on 03/04/16at 22:11; Start 02/03/16 at 16:15 Furosemide 20 mg 20 mg ONCE ONCE IV PUSH Last administered on 02/03/16at 17:16; Start 02/03/16 at 17:15; Stop 02/03/16 at 17:16; Status DC Vancomycin HCl/ Sodium Chloride (Vancomycin Inj/ NS 250 ml Inj) 275 ml @ 275 mls/hr Q18H IV Last administered on 02/04/16at 03:53; Start 02/04/16 at 04:00; Stop 02/04/16 at 15:19; Status DC Miscellaneous Information SPECIFIC LAB TO BE SHARON... ONCE ONCE XX ; Start at 09:45; Stop 02/06/16 at 09:46; Status Cancel Potassium Chloride (KCl 20 Meq Premix Inj) 100 ml @ 50 mls/hr Q2H IV Last administered on 02/04/16at 11:00; Start 02/04/16 at 09:00; Stop 02/04/16 at 12:59 ; Status DC Potassium Chloride (KCl) 20 meq ONCE ONCE PO Last administered on 02/04/16at 08 :46; Start 02/04/16 at 08:30; Stop 02/04/16 at 08:51; Status DC Potassium Chloride (KCl 40 Meq/30 ml Liq) 20 meq ONCE ONCE G-TUBE Last administered on 02/04/16at 10:00; Start 02/04/16 at 09:00; Stop 02/04/16 at 09:01 ; Status DC Furosemide 20 mg 20 mg ONCE ONCE IV PUSH Last administered on 02/04/16at 10:05 ; Start 02/04/16 at 09:00; Stop 02/04/16 at 09:01; Status DC Magnesium Sulfate/ Dextrose (Magnesium Sulfate 1 Gm Premix) 100 ml @ 100 mls/ hr ONCE ONCE IV Last administered on 02/04/16at 09:08; Start 02/04/16 at 09:00 ; Stop 02/04/16 at 09:59; Status DC Escitalopram Oxalate 20 mg 20 mg HS PO Last administered on 02/12/16at 21:34; Start 02/04/16 at 21:00; Stop 02/14/16 at 17:16; Status DC Potassium Chloride 100 ml @ 50 mls/hr Q2H IV Last administered on 02/05/16at 11 :00; Start 02/05/16 at 09:00; Stop 02/05/16 at 12:59; Status DC Magnesium Sulfate/ Dextrose (Magnesium Sulfate 1 Gm Premix) 100 ml @ 100 mls/ hr ONCE ONCE IV Last administered on 02/05/16at 08:00; Start 02/05/16 at 08:00 ; Stop 02/05/16 at 08:59; Status DC Alprazolam (Xanax) 0.25 mg Q6H PRN PO agitation; Start 02/05/16 at 09:45; Stop 02/05/16 at 09:53; Status DC Furosemide (Lasix) 20 mg DAILY PO Last administered on 02/09/16at 10:07; Start 02/06/16 at 09:00; Stop 02/10/16 at 08:59; Status DC Alprazolam 0.5 mg 0.5 mg Q8HR G-TUBE Last administered on 02/14/16at 13:51; Start 02/05/16 at 14:00; Stop 02/14/16 at 17:15; Status DC Potassium Chloride (KCl 20 Meq Premix Inj) 100 ml @ 50 mls/hr Q2H IV Last administered on 02/06/16at 18:36; Start 02/06/16 at 16:00; Stop 02/06/16 at 19:59 ; Status DC Potassium Bicarb/ Potassium Chloride (K-Lyte Cl Eff) 50 meq ONCE ONCE PO Last administered on 02/06/16at 15:51; Start 02/06/16 at 15:30; Stop 02/06/16 at 15:31; Status DC Levofloxacin (Levaquin) 750 mg DAILY PO Last administered on 02/10/16at 09:00; Start 02/07/16 at 09:00; Stop 02/11/16 at 08:59; Status DC Sennosides (Senna Liq) 8.8 mg Q12HR PRN GT CONSTIPATION; Start 02/09/16 at 09: 00 Pantoprazole Sodium (Protonix) 40 mg DAILY PO Last administered on 02/15/16at 11 :44; Start 02/14/16 at 13:00; Stop 02/15/16 at 12:58; Status DC Ondansetron HCl (Zofran Odt) 4 mg ONCE ONCE PO Last administered on at 13:51; Start 02/14/16 at 12:45; Stop 02/14/16 at 12:46; Status DC Furosemide (Lasix Inj) 40 mg ONCE ONCE IV PUSH Last administered on 02/14/16at 17:17; Start 02/14/16 at 16:45; Stop 02/14/16 at 16:46; Status DC Alprazolam 0.25 mg 0.25 mg Q8H PRN G-[id number] anxiety Last administered on at 17:57; Start 02/14/16 at 17:15 Levofloxacin/ Dextrose 150 ml @ 100 mls/hr Q24H IV Last administered on at 21:00; Start 02/14/16 at 21:00; Stop 02/15/16 at 08:43; Status DC Piperacillin Sod/ Tazobactam Sod (Zosyn 4.5 Gm Premix) 100 ml @ 200 mls/hr Q6H IV Last administered on 02/15/16at 11:43; Start 02/15/16 at 11:00; Stop at 12:47; Status DC Ondansetron HCl 4 mg 4 mg TID PO Last administered on 03/05/16at 11:23; Start 02/15/16 at 13:00 Ceftriaxone Sodium/Sodium Chloride (Rocephin Inj/NS Inj) 100 ml @ 200 mls/hr Q24H IV Last administered on 02/24/16at 13:42; Start 02/15/16 at 13:00; Stop at 17:00; Status DC Pantoprazole Sodium (Protonix) 40 mg BID PO Last administered on 02/22/16at 21: 32; Start 02/15/16 at 21:00; Stop 02/23/16 at 16:36; Status DC Docusate Sodium (Colace) 100 mg BID PO ; Start 02/15/16 at 13:00; Stop 02/15/16 at 15:33; Status DC Sennosides (Senokot) 17.2 mg DAILY PO Last administered on 03/05/16at 09:07; Start 02/15/16 at 13:00 Lactulose (Lactulose Liq) 30 ml ONCE ONCE PO Last administered on 02/15/16at 13 :57; Start 02/15/16 at 13:00; Stop 02/15/16 at 13:01; Status DC Sodium Polystyrene Sulfonate (Kayexalate Liq) 30 gm ONCE ONCE GT Last administered on 02/15/16at 16:14; Start 02/15/16 at 15:45; Stop 02/15/16 at 15:46 ; Status DC Docusate Sodium 100 mg 100 mg Q12HR PO ; Start 02/15/16 at 21:00; Status UNV Dextrose/Sodium Chloride (D5W-NS 1000 ml Inj) 1,000 ml @ 75 mls/hr [id number] IV Last administered on 02/16/16at 05:10; Start 02/15/16 at 15:45; Stop 02/16/16 at 13:42; Status DC Docusate Sodium (Colace) 100 mg Q12HR PO Last administered on 03/04/16at 09:52; Start 02/15/16 at 21:00 Hydromorphone HCl (Dilaudid Pf Inj) 0.2 mg ONCE ONCE IV PUSH Last administered on 02/18/16at 03:14; Start 02/18/16 at 02:45; Stop 02/18/16 at 02:46 ; Status DC Hydromorphone HCl (Dilaudid Pf Inj) 0.2 mg Q4H PRN IV PUSH BREAKTHROUGH PAIN Last administered on 03/05/16at 09:10; Start 02/18/16 at 13:15 Influenza Virus Vaccine (Flu (Quadrivalent) Vaccine Inj) 0.5 ml ONCE ONCE IM Last administered on 02/21/16at 11:39; Start 02/21/16 at 10:00; Stop 02/21/16 at 10:01; Status DC Famotidine (Pepcid) 20 mg BID PO ; Start 02/23/16 at 21:00; Stop 02/23/16 at 21: 00; Status DC Lansoprazole (Prevacid Odt) 30 mg DAILY NG Last administered on 03/05/16at 09: 07; Start 02/24/16 at 09:00 Temazepam (Restoril) 15 mg HS PRN PO INSOMNIA Last administered on 03/03/16at 00 :30; Start 02/24/16 at 17:00 Acetaminophen 650 mg 650 mg ONCE ONCE PO ; Start 03/03/16 at 06:00; Stop at 06:01; Status DC Sodium Chloride (NS 500 ml Inj) 500 ml @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
[2016-03-05] MEDS: ACETAMINOPHEN 325MG/HYDROcodone 7.5MG/15ML UDC PO PRN ×2 (16:01→23:16)
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
[2016-03-05] MEDS: ENOXAPARIN SODIUM 40 MG/0.4 ML SYRINGE SQ SCH (21:39)
[2016-03-05] MEDS: TEMAZEPAM 15 MG CAP PO PRN (23:21)
[2016-03-06] VITALS (9 sets, daily range): BP systolic 113–169; BP diastolic 70–91; PULSE 79–110; RESP 18–20; TEMP 96.7–98.7; O2SAT 92–100
[2016-03-06] MEDS: HYDROmorphone HCL PF 1 MG/ML VIAL IV PUSH PRN ×4 (06:00→23:15)
[2016-03-06] MEDS: SENNOSIDES 8.6 MG TAB PO SCH (08:49)
[2016-03-06] MEDS: METOCLOPRAMIDE HCL SYRUP 10 MG/10 ML UDC G-TUBE SCH ×2 (08:49→21:12)
[2016-03-06] MEDS: ACETAMINOPHEN 325MG/HYDROcodone 7.5MG/15ML UDC PO PRN ×3 (08:49→21:33)
[2016-03-06] MEDS: levETIRAcetam 500 MG/5 ML UDC TUBE SCH ×2 (08:49→21:12)
[2016-03-06] MEDS: ONDANSETRON ODT 4 MG TAB PO SCH ×3 (08:49→17:56)
[2016-03-06] MEDS: LANSOPRAZOLE SOLUTAB 30 MG TAB NG SCH (08:49)
[2016-03-06] MEDS: DOCUSATE SODIUM 100 MG CAP PO SCH ×2 (08:49→21:12)
[2016-03-06] MEDS: SODIUM CHLORIDE 0.9% FLUSH 5 ML FLUSH IVF SCH ×2 (08:50→21:13)
[2016-03-06] MEDS: CEFEPIME INJ 2,000 MG in SODIUM CHLORIDE 0.9% INJ 100 ML IV SCH ×2 (08:50→21:13)
--- NOTE | 2016-03-06 09:48 | HHI.PR ---
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 10 mg STK-MED ONCE .ROUTE Last administered on 12/14/15at 14:28; Start 12/14/15 at 14:28; Stop 12/14/15 at 14:29; Status DC Midazolam HCl (Versed Inj) 10 mg ONCE ONCE IV PUSH Last administered on at 15:19; Start 12/14/15 at 14:45; Stop 12/14/15 at 14:51; Status DC Vecuronium [place] (Norcuron 10 Mg Inj) 10 mg ONCE ONCE IV PUSH Last administered on 12/14/15at 15:19; Start 12/14/15 at 14:45; Stop 12/14/15 at 14:51 ; Status DC Fentanyl Citrate (Sublimaze Inj) 250 mcg ONCE ONCE IV PUSH Last administered on 12/14/15at 15:20; Start 12/14/15 at 14:45; Stop 12/14/15 at 14:51; Status DC Iohexol (Omnipaque 350 Inj) 80 ml STK-MED ONCE G-TUBE Last administered on 12/13at 15:00; Start 12/14/15 at 14:55; Stop 12/14/15 at 14:56; Status DC Albuterol/ Ipratropium (Duoneb Neb) 1 ampule Q6HR NEB NEB Last administered on 12/28/15at 08:04; Start 12/15/15 at 10:00; Stop 12/28/15 at 13:16; Status DC Diatrizoate Meglum/ Diatrizoate Sod ( Gastroview Liq) 18 ml ONCE ONCE PO Last administered on 12/15/15at 11:54; Start 12/15/15 at 11:15; Stop 12/15/15 at 11:16; Status DC Rocuronium [facility] (Zemuron Inj) 50 mg BOLUS ONCE IV ; Start 12/15/15 at 14:30 ; Stop 12/15/15 at 14:31; Status DC Iohexol (Omnipaque 350 Inj) 96 ml STK-MED ONCE IV Last administered on at 14:56; Start 12/15/15 at 14:56; Stop 12/15/15 at 14:57; Status DC Midazolam HCl (Versed Inj) 5 mg STK-MED ONCE .ROUTE ; Start 12/16/15 at 08:41; Stop 12/16/15 at 08:42; Status DC Midazolam HCl (Versed Inj) 5 mg ONCE STAT IV Last administered on 12/16/15at 09 :30; Start 12/16/15 at 09:30; Stop 12/16/15 at 09:31; Status DC Miscellaneous Information SPECIFIC LAB TO BE ... ONCE ONCE XX ; Start at 08:45; Stop 12/19/15 at 08:45; Status DC Midazolam HCl (Versed Inj) 2 mg Q2H PRN IV PUSH agitation Last administered on 12/20/15at 22:29; Start 12/17/15 at 21:15; Stop 12/21/15 at 13:16; Status DC Metoclopramide HCl (Reglan Inj) 10 mg Q8HR IV PUSH Last administered on at 12:51; Start 12/18/15 at 14:00; Stop 12/24/15 at 12:46; Status DC Lactulose 30 ml 30 ml Q12H PO ; Start 12/18/15 at 13:00; Stop 12/19/15 at 10:06 ; Status DC Potassium Phosphate/Sodium Chloride (Potassium Phosphate Inj/NS 250 ml Inj) 260 ml @ 43.333 mls/ hr ONCE ONCE IV Last administered on 12/19/15at 10:25; Start 12/19/15 at 10:00; Stop 12/19/15 at 15:59; Status DC Pantoprazole Sodium (Protonix Inj) 40 mg Q24H IV PUSH Last administered on 12/22at 12:51; Start 12/19/15 at 12:00; Stop 12/24/15 at 11:37; Status DC Metoprolol Tartrate (Lopressor Inj) 5 mg Q4HR IV PUSH Last administered on 12/20at 12:36; Start 12/19/15 at 12:00; Stop 12/21/15 at 12:49; Status DC Fentanyl (Duragesic 50 Mcg Patch.72 Hr) 1 patch Q3D TD Last administered on 01/31/16at 08:16; Start 12/20/15 at 09:00; Stop 02/03/16 at 08:45; Status DC Miscellaneous Information 1 Q3D TD Last administered on 01/31/16at 08:16; Start 12/23/15 at 09:00; Stop 01/31/16 at 10:57; Status DC Acetaminophen/ Hydrocodone Bitart ([place] 5-325 Mg) 1 tab Q6H PRN PO PAIN SCALE 1 TO 5; Start 12/20/15 at 09:00; Stop 12/21/15 at 13:45; Status DC Acetaminophen/ Hydrocodone Bitart ([place] 5-325 Mg) 2 tab Q6H PRN PO PAIN SCALE 6 TO 10; Start 12/20/15 at 09:00; Stop 12/21/15 at 13:45; Status DC Morphine Sulfate (Morphine Inj) 2 mg Q2HR PRN IV PUSH PAIN SCALE 8 TO 10 Last administered on 12/24/15at 14:44; Start 12/20/15 at 09:00; Stop 12/25/15 at 13:18 ; Status DC Morphine Sulfate (Morphine Inj) 4 mg Q4HR PRN IV PUSH PAIN SCALE 6 TO 10 Last administered on 12/20/15at 22:32; Start 12/20/15 at 09:00; Stop 12/21/15 at 13:45 ; Status DC Enoxaparin Sodium (Lovenox Inj) 30 mg Q12H SQ Last administered on 01/16/16at 22 :26; Start 12/20/15 at 10:00; Stop 01/17/16 at 09:48; Status DC Metoprolol Tartrate (Lopressor Inj) 5 mg ONCE ONCE IV PUSH Last administered on 12/21/15at 13:22; Start 12/21/15 at 12:45; Stop 12/21/15 at 12:56; Status DC Metoprolol Tartrate (Lopressor Inj) 10 mg Q4HR IV PUSH Last administered on at 09:28; Start 12/21/15 at 16:00; Stop 12/24/15 at 11:35; Status DC Olanzapine 5 mg 5 mg Q8H PRN PO AGITATION AND/OR HALLUCINATION Last administered on 12/31/15at 12:37; Start 12/21/15 at 13:00; Stop 01/14/16 at 13:04 ; Status DC Potassium Chloride 100 ml @ 50 mls/hr Q2H PRN IV For Potassium 2.8 - 3.2 mEq/L ; Start 12/21/15 at 13:00; Stop 01/13/16 at 21:27; Status DC Potassium Chloride (KCl 20 Meq Premix Inj) 100 ml @ 50 mls/hr Q2H PRN IV For Potassium 2.8 - 3.2 mEq/L; Start 12/21/15 at 13:00; Stop 01/13/16 at 21:27; Status DC Potassium Chloride 40 meq 40 meq UNSCH PRN PO/TUBE For Potassium 3.3 - 3.5 mEq/ L Last administered on 12/21/15at 15:19; Start 12/21/15 at 13:00; Stop 01/13/16 at 21:27; Status DC Potassium Chloride 100 ml @ 25 mls/hr UNSCH PRN IV For Potassium 3.3 - 3.5 mEq /L; Start 12/21/15 at 13:00; Stop 01/13/16 at 21:27; Status DC Potassium Chloride 100 ml @ 50 mls/hr Q2H PRN IV For Potassium 3.3 - 3.5 mEq/L ; Start 12/21/15 at 13:00; Stop 01/13/16 at 21:27; Status DC Magnesium Sulfate/ Sodium Chloride (Magnesium Sulfate Inj/NS Inj) 100 ml @ 50 mls/hr UNSCH PRN IV For Magnesium 0.9 - 1.1 mg/dL; Start 12/21/15 at 13:00; Stop 01/13/16 at 21:27; Status DC Magnesium Oxide 800 mg 800 mg UNSCH PRN PO For Magnesium 1.2 - 1.6 mg/dL; Start 12/21/15 at 13:00; Stop 01/13/16 at 21:27; Status DC Magnesium Sulfate/ Sodium Chloride (Magnesium Sulfate Inj/NS Inj) 100 ml @ 50 mls/hr UNSCH PRN IV For Magnesium 1.2 - 1.6 mg/dL; Start 12/21/15 at 13:00; Stop 01/13/16 at 21:27; Status DC Potassium Phosphate 2000 mg 2,000 mg Q4H PRN PO For Phosphorus < 2.5 mg/dL; Start 12/21/15 at 13:00; Stop 01/13/16 at 21:27; Status DC Sodium Phosphate/ Sodium Chloride (Sodium Phosphate Inj/NS 250 ml Inj) 250 ml @ 42 mls/hr UNSCH PRN IV For Phosphorus < 2.5 mg/dL Last administered on at 11:18; Start 12/21/15 at 13:00; Stop 01/13/16 at 21:27; Status DC Potassium Chloride (KCl 40 Meq/30 ml Liq) 40 meq UNSCH PRN PO/TUBE SEE LABEL COMMENTS; Start 12/21/15 at 13:00; Stop 01/13/16 at 21:27; Status DC Potassium Phosphate 2000 mg 2,000 mg UNSCH PRN PO/TUBE SEE LABEL COMMENTS; Start 12/21/15 at 13:00; Stop 01/13/16 at 21:27; Status DC Potassium Phosphate/Sodium Chloride (Potassium Phosphate Inj/NS 250 ml Inj) 260 ml @ 42 mls/hr UNSCH PRN IV SEE LABEL COMMENTS; Start 12/21/15 at 13:00; Stop 01/13/16 at 21:27; Status DC Oxycodone HCl (Roxicodone Intensol Liq) 5 mg Q4H PRN PO PAIN SCALE 4 TO 7 Last administered on 01/13/16at 11:08; Start 12/21/15 at 13:45; Stop 01/14/16 at 13:04 ; Status DC Labetalol HCl (Trandate Inj) 20 mg Q1H PRN IV PUSH SBP>170, DBP>90, HR>65 Last administered on 12/27/15at 10:22; Start 12/21/15 at 14:30; Stop 01/13/16 at 21:27 ; Status DC Levetriacetam (Keppra Liq) 500 mg Q12HR TUBE Last administered on 03/06/16at 08:49; Start 12/22/15 at 21:00 Acetaminophen (Tylenol 650 Mg/ 20 ml Liq) 650 mg Q6H PRN J-TUBE PAIN SCALE 1 TO 5, T > 101 Last administered on 02/21/16at 06:23; Start 12/22/15 at 11:00 Labetalol HCl (Trandate Inj) 40 mg NOW ONCE IVP ; Start 12/23/15 at 12:00; Stop 12/23/15 at 12:01; Status DC Acetaminophen 650 mg 650 mg NOW ONCE J-TUBE ; Start 12/23/15 at 13:45; Stop at 13:46; Status DC Vancomycin HCl 1250 mg/Sodium Chloride 275 ml @ 250 mls/hr ONCE ONCE IV Last administered on 12/23/15at 17:14; Start 12/23/15 at 16:00; Stop 12/23/15 at 17:05 ; Status DC Piperacillin Sod/ Tazobactam Sod (Zosyn 3.375 Gm Premix) 50 ml @ 100 mls/hr Q8H IV Last administered on 01/05/16at 15:51; Start 12/23/15 at 16:00; Stop 04/11 at 18:15; Status DC Metoprolol Tartrate (Lopressor) 25 mg Q8HR TUBE Last administered on 01/15/16at 13:14; Start 12/24/15 at 14:00; Stop 01/15/16 at 15:23; Status DC Pantoprazole Sodium (Protonix Inj) 40 mg Q24H IV PUSH Last administered on 12/23at 12:21; Start 12/24/15 at 12:00; Stop 12/24/15 at 13:00; Status DC Ranitidine HCl (Zantac Liq) 150 mg Q12HR TUBE Last administered on 01/15/16at 10:14; Start 12/25/15 at 09:00; Stop 01/15/16 at 15:24; Status DC Metoclopramide HCl (Reglan Liq) 10 mg Q12HR G-TUBE Last administered on at 08:49; Start 12/24/15 at 21:00 Alprazolam (Xanax) 0.25 mg Q8HR PO Last administered on 01/13/16at 13:47; Start 12/25/15 at 14:00; Stop 01/14/16 at 13:04; Status DC Sennosides (Senna Liq) 8.8 mg ONCE ONCE PO Last administered on 12/25/15at 12: 03; Start 12/25/15 at 12:00; Stop 12/25/15 at 12:01; Status DC Sennosides (Senna Liq) 8.8 mg Q12HR PO Last administered on 01/13/16at 11:06; Start 12/25/15 at 21:00; Stop 01/14/16 at 13:04; Status DC Morphine Sulfate (Morphine Inj) 4 mg Q3H PRN IV PUSH PAIN SCALE 8 TO 10 Last administered on 01/17/16at 02:36; Start 12/25/15 at 13:15; Stop 01/17/16 at 09:45 ; Status DC Methylprednisolone Sodium Succinate (SoluMEDROL INJ) 40 mg Q8HR IV PUSH Last administered on 12/27/15at 05:50; Start 12/25/15 at 22:00; Stop 12/27/15 at 07:00; Status DC Midazolam HCl (Versed Inj) 10 mg ONCE ONCE IV Last administered on 12/26/15at 11 :22; Start 12/26/15 at 10:30; Stop 12/26/15 at 10:41; Status DC Fentanyl Citrate (Sublimaze Inj) 250 mcg ONCE ONCE IV PUSH Last administered on 12/26/15at 11:22; Start 12/26/15 at 10:30; Stop 12/26/15 at 10:41; Status DC Rocuronium [place] (Zemuron Inj) 100 mg BOLUS ONCE IV Last administered on 12/25at 11:21; Start 12/26/15 at 10:30; Stop 12/26/15 at 10:44; Status DC Acetylcysteine (Mucomyst 20% Neb) 2 ml Q8HR NEB NEB Last administered on at 07:34; Start 12/27/15 at 00:00; Stop 12/31/15 at 00:00; Status DC Propofol (Diprivan 200 Mg/20 ml Inj) 250 mg STK-MED ONCE IV PUSH ; Start at 13:23; Stop 12/30/15 at 13:46; Status DC Diatrizoate Meglum/ Diatrizoate Sod ( Gastroview Liq) 18 ml ONCE ONCE PO ; Start 12/30/15 at 16:00; Stop 12/30/15 at 16:01; Status Cancel Magnesium Hydroxide 30 ml 30 ml BID PRN PEG CONSTIPATION Last administered on at 09:42; Start 01/02/16 at 19:15; Stop 01/15/16 at 15:23; Status DC Dextrose/Sodium Chloride (D5W-1/2 NS 1000 ml Inj) 1,000 ml @ 60 mls/hr [id number] IV Last administered on 01/05/16at 17:08; Start 01/03/16 at 16:30; Stop 01/06/16 at 08:12; Status DC Ephedrine Sulfate (ePHEDrine/NS 50 MG/5 ML SYR) 50 mg STK-MED ONCE IV ; Start at 12:00; Stop 01/06/16 at 10:00; Status DC Phenylephrine HCl 1000 mcg 1,000 mcg STK-MED ONCE IV ; Start 12/30/15 at 12:00; Stop 01/06/16 at 10:00; Status DC Dextrose/Sodium Chloride (D5W-NS 1000 ml Inj) 1,000 ml @ 42 mls/hr [id number] IV Last administered on 01/13/16at 03:14; Start 01/06/16 at 11:00; Stop 01/15/16 at 14:53; Status DC Hyoscyamine Sulfate (Levsin Inj) 0.125 mg Q6H PRN IVP SECRETIONS Last administered on 01/16/16at 10:43; Start 01/10/16 at 21:45; Stop 01/17/16 at 09:49 ; Status DC Hyoscyamine Sulfate 0.125 mg 0.125 mg Q6H PRN SL SECRETIONS Last administered on 02/03/16at 17:17; Start 01/10/16 at 21:45; Stop 02/10/16 at 11:47; Status DC Levetriacetam (Keppra 500 Mg Premix Inj) 100 ml @ 400 mls/hr BOLUS ONCE IV Last administered on 01/13/16at 21:54; Start 01/13/16 at 22:00; Stop 01/13/16 at 22:14; Status DC Metoprolol Tartrate (Lopressor Inj) 5 mg ONCE ONCE IV PUSH Last administered on 01/13/16at 21:54; Start 01/13/16 at 22:00; Stop 01/13/16 at 22:01; Status DC Alprazolam (Xanax) 0.25 mg Q8HR G-TUBE Last administered on 02/05/16at 04:08; Start 01/14/16 at 14:00; Stop 02/05/16 at 09:53; Status DC Olanzapine (ZyPREXA ZYDIS ODT) 5 mg Q8H PRN .XX AGITATION AND/OR HALLUCINATION Last administered on 02/05/16at 04:08; Start 01/14/16 at 21:00 Oxycodone HCl (Roxicodone Intensol Liq) 5 mg Q4H PRN G-TUBE PAIN SCALE 4 TO 7 Last administered on 01/23/16at 12:11; Start 01/14/16 at 13:45; Stop 01/26/16 at 10:13; Status DC Sennosides (Senna Liq) 8.8 mg Q12HR GT Last administered on 02/08/16at 10:57; Start 01/14/16 at 21:00; Stop 02/09/16 at 08:49; Status DC Lorazepam 1 mg 1 mg Q6H PRN IV PUSH SEIZURES Last administered on 01/18/16at 10: 51; Start 01/14/16 at 13:00; Stop 01/20/16 at 11:19; Status DC Potassium Chloride/Dextrose/ Sod Cl (D5-1/2 NS + KCl 20 Meq Inj) 1,000 ml @ 84 mls/hr [id number] IV Last administered on 01/16/16at 22:27; Start 01/15/16 at 15:00 ; Stop 01/17/16 at 09:45; Status DC Magnesium Hydroxide (Milk Of Magnesia Liq) 30 ml BID PRN G-TUBE CONSTIPATION Last administered on 03/06/16at 06:21; Start 01/15/16 at 15:30 Metoprolol Tartrate (Lopressor) 25 mg Q8HR G-TUBE Last administered on at 21:05; Start 01/15/16 at 22:00; Stop 01/26/16 at 10:13; Status DC Ranitidine HCl (Zantac Liq) 150 mg Q12HR G-TUBE Last administered on at 08:44; Start 01/15/16 at 21:00; Stop 02/14/16 at 12:36; Status DC Albuterol Sulfate (Albuterol Neb) 0.63 mg QID NEB NEB Last administered on at 11:36; Start 01/15/16 at 16:00; Stop 01/23/16 at 13:50; Status DC Morphine Sulfate (Morphine Inj) 8 mg STK-MED ONCE .ROUTE Last administered on at 16:41; Start 01/16/16 at 16:41; Stop 01/16/16 at 16:42; Status DC Fentanyl Citrate (Sublimaze Inj) 100 mcg STK-MED ONCE .ROUTE Last administered on 01/16/16 16:59; Start 01/16/16 at 16:59; Stop 01/16/16 at 17:00; Status DC Midazolam HCl (Versed Inj) 2 mg STK-MED ONCE .ROUTE Last administered on at 16:59; Start 01/16/16 at 16:59; Stop 01/16/16 at 17:00; Status DC Iohexol (Omnipaque 350 Inj) 25 ml STK-MED ONCE G-TUBE Last administered on 01/15at 17:20; Start 01/16/16 at 17:20; Stop 01/16/16 at 17:36; Status DC Enoxaparin Sodium (Lovenox Inj) 40 mg Q24H SQ ; Start 01/17/16 at 22:00; Stop at 22:00; Status DC Sodium Biphosphate/ Sodium Phosphate (Fleets Enema (Adult)) 133 ml UNSCH PRN UT CONSTIPATION; Start 01/17/16 at 10:00 Enoxaparin Sodium (Lovenox Inj) 40 mg Q24H SQ Last administered on 03/05/16at 21:39; Start 01/17/16 at 22:00 Morphine Sulfate (Morphine Inj) 4 mg ONCE ONCE IV PUSH Last administered on at 00:38; Start 01/20/16 at 00:15; Stop 01/20/16 at 00:17; Status DC Morphine Sulfate 4 mg 4 mg Q3H PRN IV PUSH PAIN SCALE 7 TO 10 Last administered on 01/26/16at 06:07; Start 01/20/16 at 08:30; Stop 01/26/16 at 10:11; Status DC Levofloxacin/ Dextrose (Levaquin 750 Mg Premix Inj) 150 ml @ 100 mls/hr Q24H IV Last administered on 01/29/16at 12:08; Start 01/20/16 at 12:00; Stop 01/29/16 at 19:00; Status DC Morphine Sulfate (Morphine Inj) 2 mg Q4HR PRN IV PUSH BREAKTHROUGH PAIN Last administered on 01/27/16at 19:23; Start 01/26/16 at 12:00; Stop 01/30/16 at 08:13; Status DC Acetaminophen/ Hydrocodone Bitart (Hycet 325-7.5 Mg Liq) 10 ml Q6H PRN PO PAIN SCALE 6 TO 10 Last administered on 01/30/16at 01:03; Start 01/26/16 at 10:15; Stop 01/30/16 at 08:13; Status DC Metoprolol Tartrate (Lopressor) 12.5 mg Q12HR G-TUBE Last administered on at 09:30; Start 01/26/16 at 21:00; Stop 03/03/16 at 06:26; Status DC Promethazine HCl (Phenergan Inj) 12.5 mg Q4H PRN IM nausea Last administered on 03/03/16at 03:43; Start 01/27/16 at 20:15 Scopolamine (Transderm-Scop 1.5 Mg Patch.72 Hr) 1 patch Q3D TD Last administered on 02/08/16at 23:13; Start 01/27/16 at 21:00; Stop 02/11/16 at 08:07 ; Status DC Miscellaneous Information 1 Q3D TD Last administered on 02/08/16at 21:00; Start 01/30/16 at 21:00; Stop 02/11/16 at 08:07; Status DC Acetaminophen/ Hydrocodone Bitart (Hycet 325-7.5 Mg Liq) 5 ml Q6H PRN PO PAIN SCALE 6 TO 10 Last administered on 02/02/16at 12:50; Start 01/30/16 at 10:15; Stop 02/03/16 at 15:46; Status DC Fentanyl (Duragesic 25 Mcg Patch.72 Hr) 1 patch Q3D TD Last administered on 03/04/16at 09:50; Start 02/03/16 at 09:00 Miscellaneous Information 1 Q3D TD Last administered on 03/04/16at 11:00; Start 02/03/16 at 11:00 Metoprolol Tartrate 12.5 mg 12.5 mg ONCE ONCE PO Last administered on at 05:10; Start 02/01/16 at 04:45; Stop 02/01/16 at 04:51; Status DC Pharmacy Profile Note 0 ml @ 0 mls/hr UNSCH OTHER ; Start 02/01/16 at 07:45; Stop 02/04/16 at 16:02; Status DC Vancomycin HCl 1000 mg/Sodium Chloride 250 ml @ 250 mls/hr ONCE ONCE IV Last administered on 02/01/16at 08:25; Start 02/01/16 at 08:00; Stop 02/01/16 at 08:59; Status DC Piperacillin Sod/ Tazobactam Sod 100 ml @ 200 mls/hr Q6H IV Last administered on 02/06/16at 09:43; Start 02/01/16 at 09:00; Stop 02/06/16 at 14:49; Status DC Sodium Chloride 1,000 ml @ 100 mls/hr Q10H IV ; Start 02/01/16 at 07:45; Stop at 09:16; Status DC Sodium Chloride 1,000 ml @ 999 mls/hr BOLUS ONCE IV Last administered on at 08:24; Start 02/01/16 at 07:45; Stop 02/01/16 at 08:45; Status DC Sodium Chloride (NS 1000 ml Inj) 1,000 ml @ 75 mls/hr [id number] IV Last administered on 02/04/16at 05:21; Start 02/01/16 at 09:15; Stop 02/04/16 at 09:04 ; Status DC Miscellaneous Information SPECIFIC LAB TO BE DRAWN:VANCO TROUGH DATE... ONCE ONCE XX Last administered on 02/03/16at 14:32; Start 02/03/16 at 13:45; Stop at 13:46; Status DC Diatrizoate Meglum/ Diatrizoate Sod ( Gastroview Liq) 18 ml ONCE ONCE PO Last administered on 02/01/16at 12:06; Start 02/01/16 at 12:00; Stop 02/01/16 at 12: 01; Status DC Albuterol/ Ipratropium 1 ampule 1 ampule Q6HR WHILE AWAKE NEB NEB Last administered on 02/05/16at 19:56; Start 02/01/16 at 20:00; Stop 02/05/16 at 20:00 ; Status DC Sodium Chloride (NS 1000 ml Inj) 1,000 ml @ 999 mls/hr BOLUS ONCE IV Last administered on 02/01/16at 16:10; Start 02/01/16 at 16:30; Stop 02/01/16 at 17:30; Status DC Iohexol (Omnipaque 350 Inj) 70 ml STK-MED ONCE IV Last administered on at 16:38; Start 02/01/16 at 16:38; Stop 02/01/16 at 16:39; Status DC Miscellaneous Information Patient in critical care unit? Ass... [id number] Last administered on 02/01/16at 18:15; Start 02/01/16 at 18:15 Chlorhexidine Gluconate (Chlorhexidine 2% Cloth) 3 pack DAILY@04 TOP Last administered on 02/04/16at 03:53; Start 02/02/16 at 04:00; Stop 02/06/16 at 04:01 ; Status DC Chlorhexidine Gluconate 3 pack 3 pack UNSCH PRN TOP HYGIENIC CARE; Start at 18:15; Stop 02/06/16 at 18:04; Status DC Sodium Chloride 1,000 ml @ 999 mls/hr BOLUS ONCE IV Last administered on at 19:30; Start 02/01/16 at 19:30; Stop 02/01/16 at 20:30; Status DC Sodium Chloride 1,000 ml @ 999 mls/hr BOLUS ONCE IV Last administered on at 20:29; Start 02/01/16 at 20:30; Stop 02/01/16 at 21:30; Status DC Vancomycin HCl 1000 mg/Sodium Chloride 250 ml @ 250 mls/hr Q18H IV Last administered on 02/03/16at 14:32; Start 02/02/16 at 02:00; Stop 02/03/16 at 17:31; Status DC Sodium Chloride 1,000 ml @ 999 mls/hr BOLUS ONCE IV Last administered on at 00:39; Start 02/02/16 at 00:30; Stop 02/02/16 at 01:30; Status DC Sodium Chloride 1,000 ml @ 999 mls/hr BOLUS ONCE IV Last administered on at 08:11; Start 02/02/16 at 08:00; Stop 02/02/16 at 09:00; Status DC Potassium Chloride/Sodium Chloride (NS + KCl 20 Meq Inj) 1,000 ml @ 125 mls/hr Q8H ONCE IV Last administered on 02/02/16at 23:52; Start 02/02/16 at 23:45; Stop 02/03/16 at 07:44; Status DC Acetaminophen/ Hydrocodone Bitart (Hycet 325-7.5 Mg Liq) 15 ml Q6H PRN PO PAIN SCALE 6 TO 10 Last administered on 03/06/16at 08:49; Start 02/03/16 at 16:15 Furosemide 20 mg 20 mg ONCE ONCE IV PUSH Last administered on 02/03/16at 17:16; Start 02/03/16 at 17:15; Stop 02/03/16 at 17:16; Status DC Vancomycin HCl/ Sodium Chloride (Vancomycin Inj/ NS 250 ml Inj) 275 ml @ 275 mls/hr Q18H IV Last administered on 02/04/16at 03:53; Start 02/04/16 at 04:00; Stop 02/04/16 at 15:19; Status DC Miscellaneous Information SPECIFIC LAB TO BE SHARON... ONCE ONCE XX ; Start at 09:45; Stop 02/06/16 at 09:46; Status Cancel Potassium Chloride (KCl 20 Meq Premix Inj) 100 ml @ 50 mls/hr Q2H IV Last administered on 02/04/16at 11:00; Start 02/04/16 at 09:00; Stop 02/04/16 at 12:59 ; Status DC Potassium Chloride (KCl) 20 meq ONCE ONCE PO Last administered on 02/04/16at 08 :46; Start 02/04/16 at 08:30; Stop 02/04/16 at 08:51; Status DC Potassium Chloride (KCl 40 Meq/30 ml Liq) 20 meq ONCE ONCE G-TUBE Last administered on 02/04/16at 10:00; Start 02/04/16 at 09:00; Stop 02/04/16 at 09:01 ; Status DC Furosemide 20 mg 20 mg ONCE ONCE IV PUSH Last administered on 02/04/16at 10:05 ; Start 02/04/16 at 09:00; Stop 02/04/16 at 09:01; Status DC Magnesium Sulfate/ Dextrose (Magnesium Sulfate 1 Gm Premix) 100 ml @ 100 mls/ hr ONCE ONCE IV Last administered on 02/04/16at 09:08; Start 02/04/16 at 09:00 ; Stop 02/04/16 at 09:59; Status DC Escitalopram Oxalate 20 mg 20 mg HS PO Last administered on 02/12/16at 21:34; Start 02/04/16 at 21:00; Stop 02/14/16 at 17:16; Status DC Potassium Chloride 100 ml @ 50 mls/hr Q2H IV Last administered on 02/05/16at 11 :00; Start 02/05/16 at 09:00; Stop 02/05/16 at 12:59; Status DC Magnesium Sulfate/ Dextrose (Magnesium Sulfate 1 Gm Premix) 100 ml @ 100 mls/ hr ONCE ONCE IV Last administered on 02/05/16at 08:00; Start 02/05/16 at 08:00 ; Stop 02/05/16 at 08:59; Status DC Alprazolam (Xanax) 0.25 mg Q6H PRN PO agitation; Start 02/05/16 at 09:45; Stop 02/05/16 at 09:53; Status DC Furosemide (Lasix) 20 mg DAILY PO Last administered on 02/09/16at 10:07; Start 02/06/16 at 09:00; Stop 02/10/16 at 08:59; Status DC Alprazolam 0.5 mg 0.5 mg Q8HR G-TUBE Last administered on 02/14/16at 13:51; Start 02/05/16 at 14:00; Stop 02/14/16 at 17:15; Status DC Potassium Chloride (KCl 20 Meq Premix Inj) 100 ml @ 50 mls/hr Q2H IV Last administered on 02/06/16at 18:36; Start 02/06/16 at 16:00; Stop 02/06/16 at 19:59 ; Status DC Potassium Bicarb/ Potassium Chloride (K-Lyte Cl Eff) 50 meq ONCE ONCE PO Last administered on 02/06/16at 15:51; Start 02/06/16 at 15:30; Stop 02/06/16 at 15:31; Status DC Levofloxacin (Levaquin) 750 mg DAILY PO Last administered on 02/10/16at 09:00; Start 02/07/16 at 09:00; Stop 02/11/16 at 08:59; Status DC Sennosides (Senna Liq) 8.8 mg Q12HR PRN GT CONSTIPATION; Start 02/09/16 at 09: 00 Pantoprazole Sodium (Protonix) 40 mg DAILY PO Last administered on 02/15/16at 11 :44; Start 02/14/16 at 13:00; Stop 02/15/16 at 12:58; Status DC Ondansetron HCl (Zofran Odt) 4 mg ONCE ONCE PO Last administered on at 13:51; Start 02/14/16 at 12:45; Stop 02/14/16 at 12:46; Status DC Furosemide (Lasix Inj) 40 mg ONCE ONCE IV PUSH Last administered on 02/14/16at 17:17; Start 02/14/16 at 16:45; Stop 02/14/16 at 16:46; Status DC Alprazolam 0.25 mg 0.25 mg Q8H PRN G-TUBE anxiety Last administered on at 17:57; Start 02/14/16 at 17:15 Levofloxacin/ Dextrose 150 ml @ 100 mls/hr Q24H IV Last administered on at 21:00; Start 02/14/16 at 21:00; Stop 02/15/16 at 08:43; Status DC Piperacillin Sod/ Tazobactam Sod (Zosyn 4.5 Gm Premix) 100 ml @ 200 mls/hr Q6H IV Last administered on 02/15/16at 11:43; Start 02/15/16 at 11:00; Stop at 12:47; Status DC Ondansetron HCl 4 mg 4 mg TID PO Last administered on 03/06/16at 08:49; Start 02/15/16 at 13:00 Ceftriaxone Sodium/Sodium Chloride (Rocephin Inj/NS Inj) 100 ml @ 200 mls/hr Q24H IV Last administered on 02/24/16at 13:42; Start 02/15/16 at 13:00; Stop at 17:00; Status DC Pantoprazole Sodium (Protonix) 40 mg BID PO Last administered on 02/22/16at 21: 32; Start 02/15/16 at 21:00; Stop 02/23/16 at 16:36; Status DC Docusate Sodium (Colace) 100 mg BID PO ; Start 02/15/16 at 13:00; Stop 02/15/16 at 15:33; Status DC Sennosides (Senokot) 17.2 mg DAILY PO Last administered on 03/06/16at 08:49; Start 02/15/16 at 13:00 Lactulose (Lactulose Liq) 30 ml ONCE ONCE PO Last administered on 02/15/16at 13 :57; Start 02/15/16 at 13:00; Stop 02/15/16 at 13:01; Status DC Sodium Polystyrene Sulfonate (Kayexalate Liq) 30 gm ONCE ONCE GT Last administered on 02/15/16at 16:14; Start 02/15/16 at 15:45; Stop 02/15/16 at 15:46 ; Status DC Docusate Sodium 100 mg 100 mg Q12HR PO ; Start 02/15/16 at 21:00; Status UNV Dextrose/Sodium Chloride (D5W-NS 1000 ml Inj) 1,000 ml @ 75 mls/hr [id number] IV Last administered on 02/16/16at 05:10; Start 02/15/16 at 15:45; Stop 02/16/16 at 13:42; Status DC Docusate Sodium (Colace) 100 mg Q12HR PO Last administered on 03/04/16at 09:52; Start 02/15/16 at 21:00 Hydromorphone HCl (Dilaudid Pf Inj) 0.2 mg ONCE ONCE IV PUSH Last administered on 02/18/16at 03:14; Start 02/18/16 at 02:45; Stop 02/18/16 at 02:46 ; Status DC Hydromorphone HCl (Dilaudid Pf Inj) 0.2 mg Q4H PRN IV PUSH BREAKTHROUGH PAIN Last administered on 03/06/16at 06:00; Start 02/18/16 at 13:15 Influenza Virus Vaccine (Flu (Quadrivalent) Vaccine Inj) 0.5 ml ONCE ONCE IM Last administered on 02/21/16at 11:39; Start 02/21/16 at 10:00; Stop 02/21/16 at 10:01; Status DC Famotidine (Pepcid) 20 mg BID PO ; Start 02/23/16 at 21:00; Stop 02/23/16 at 21: 00; Status DC Lansoprazole (Prevacid Odt) 30 mg DAILY NG Last administered on 03/06/16at 08: 49; Start 02/24/16 at 09:00 Temazepam (Restoril) 15 mg HS PRN PO INSOMNIA Last administered on 03/05/16at 23:21;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
--- NOTE | 2016-03-06 10:59 | RADRPT ---
EXAM DATE/TIME: 03/06/2016 10:03 [facility] COMPARISON: ABDOMEN KUB ONLY, March 05, 2016, 6:16. INDICATIONS : Abdominal pain. MEDICAL HISTORY : None. SURGICAL HISTORY : None. ENCOUNTER: Subsequent ACUITY: 3 days PAIN SCORE: 8/10 LOCATION: Abdomen, all quadrants. FINDINGS: Supine view of the abdomen was performed. Gaseous distention of multiple bowel loops. No abnormal ma sses, calcifications, or organomegaly is seen. Percutaneous gastrostomy. The osseous structures are unremarkable. CONCLUSION: Gaseous distention of multiple bowel loops, unchanged possibly representing ileus. José Miguel Kramer MD on March 06, 2016 at 10:54 Board Certified Radiologist. This report was verified electronically.
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
[2016-03-06] MEDS: ONDANSETRON HCL 4 MG/2 ML VIAL IV PRN ×2 (17:56→23:15)
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
[2016-03-06] MEDS: PROMETHAZINE INJ 25 MG/ML VIAL IM PRN (19:07)
--- NOTE | 2016-03-06 20:01 | RADRPT ---
EXAM DATE/TIME: 03/06/2016 15:55 [facility] COMPARISON: No previous studies available for comparison. INDICATIONS : Abdominal pain. Vomiting. FLUORO TIME: 0 minutes IMAGE COUNT: CONTRAST: [facility] IMAGING TIME(S): 15 min, 30 min, 45 min, 1 hr, 1.5 hrs, 3.5 hrs MEDICAL HISTORY : Hiatal hernia. SURGICAL HISTORY : Hernia repair. Nisen fundiplication. ENCOUNTER: Initial ACUITY: 2 weeks PAIN SCORE: 7/10 LOCATION: all quadrants FINDINGS: Initial recreation attendant supervisor radiograph shows mild, generalized distention of the small bowel. Colon caliber upper l imits of normal. There is a percutaneously placed GJ tube noted. Small bowel transit time is approximately 3.5 hours. No abrupt caliber changes are demonstrated. Cont rast passes into the cecum and ascending colon. The study incidentally shows a small hiatal hernia. CONCLUSION: 1. Mild small bowel ileus. No obstruction seen. 2. Small hiatal hernia. Martinez Arciniega MD on March 06, 2016 at 19:54 Board Certified Radiologist. This report was verified electronically.
[2016-03-06] MEDS: ENOXAPARIN SODIUM 40 MG/0.4 ML SYRINGE SQ SCH (21:14)
[2016-03-07] VITALS (9 sets, daily range): BP systolic 98–138; BP diastolic 56–80; PULSE 80–116; RESP 18–20; TEMP 96.9–100.6; O2SAT 93–99
[2016-03-07] MEDS: levETIRAcetam 500 MG/5 ML UDC TUBE SCH ×2 (08:28→21:26)
[2016-03-07] MEDS: METOCLOPRAMIDE HCL SYRUP 10 MG/10 ML UDC G-TUBE SCH ×2 (08:28→21:25)
[2016-03-07] MEDS: REMOVE OLD PATCH TD SCH (08:29)
[2016-03-07] MEDS: ACETAMINOPHEN 325MG/HYDROcodone 7.5MG/15ML UDC PO PRN ×3 (08:29→21:27)
[2016-03-07] MEDS: fentaNYL 25 MCG/HR PATCH TD SCH (08:29)
[2016-03-07] MEDS: SENNOSIDES 8.6 MG TAB PO SCH (08:29)
[2016-03-07] MEDS: ONDANSETRON ODT 4 MG TAB PO SCH ×3 (08:29→18:17)
[2016-03-07] MEDS: LANSOPRAZOLE SOLUTAB 30 MG TAB NG SCH (08:29)
[2016-03-07] MEDS: CEFEPIME INJ 2,000 MG in SODIUM CHLORIDE 0.9% INJ 100 ML IV SCH ×2 (08:30→21:25)
[2016-03-07] MEDS: DOCUSATE SODIUM 100 MG CAP PO SCH (08:30)
[2016-03-07] MEDS: SODIUM CHLORIDE 0.9% FLUSH 5 ML FLUSH IVF SCH ×2 (08:30→21:26)
[2016-03-07] MEDS: PROMETHAZINE INJ 25 MG/ML VIAL IM PRN (10:07)
[2016-03-07] MEDS: HYDROmorphone HCL PF 1 MG/ML VIAL IV PUSH PRN ×2 (11:56→18:18)
--- NOTE | 2016-03-07 13:21 | HHI.PR ---
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 administered on at 16:18; Start 12/13/15 at 16:00; Stop 12/13/15 at 16:01; Status DC Glucagon (Glucagon Inj) 1 mg STK-MED ONCE .ROUTE Last administered on at 14:15; Start 12/14/15 at 14:12; Stop 12/14/15 at 14:13; Status DC Metoclopramide HCl (Reglan Inj) 10 mg STK-MED ONCE .ROUTE Last administered on 12/14/15at 14:28; Start 12/14/15 at 14:28; Stop 12/14/15 at 14:29; Status DC Midazolam HCl (Versed Inj) 10 mg ONCE ONCE IV PUSH Last administered on at 15:19; Start 12/14/15 at 14:45; Stop 12/14/15 at 14:51; Status DC Vecuronium [place] (Norcuron 10 Mg Inj) 10 mg ONCE ONCE IV PUSH Last administered on 12/14/15at 15:19; Start 12/14/15 at 14:45; Stop 12/14/15 at 14:51 ; Status DC Fentanyl Citrate (Sublimaze Inj) 250 mcg ONCE ONCE IV PUSH Last administered on 12/14/15at 15:20; Start 12/14/15 at 14:45; Stop 12/14/15 at 14:51; Status DC Iohexol (Omnipaque 350 Inj) 80 ml STK-MED ONCE G-TUBE Last administered on 12/13at 15:00; Start 12/14/15 at 14:55; Stop 12/14/15 at 14:56; Status DC Albuterol/ Ipratropium (Duoneb Neb) 1 ampule Q6HR NEB NEB Last administered on 12/28/15at 08:04; Start 12/15/15 at 10:00; Stop 12/28/15 at 13:16; Status DC Diatrizoate Meglum/ Diatrizoate Sod ( Gastroview Liq) 18 ml ONCE ONCE PO Last administered on 12/15/15at 11:54; Start 12/15/15 at 11:15; Stop 12/15/15 at 11:16; Status DC Rocuronium [place] (Zemuron Inj) 50 mg BOLUS ONCE IV ; Start 12/15/15 at 14:30 ; Stop 12/15/15 at 14:31; Status DC Iohexol (Omnipaque 350 Inj) 96 ml STK-MED ONCE IV Last administered on at 14:56; Start 12/15/15 at 14:56; Stop 12/15/15 at 14:57; Status DC Midazolam HCl (Versed Inj) 5 mg STK-MED ONCE .ROUTE ; Start 12/16/15 at 08:41; Stop 12/16/15 at 08:42; Status DC Midazolam HCl (Versed Inj) 5 mg ONCE STAT IV Last administered on 12/16/15at 09 :30; Start 12/16/15 at 09:30; Stop 12/16/15 at 09:31; Status DC Miscellaneous Information SPECIFIC LAB TO BE SHARON... ONCE ONCE XX ; Start at 08:45; Stop 12/19/15 at 08:45; Status DC Midazolam HCl (Versed Inj) 2 mg Q2H PRN IV PUSH agitation Last administered on 12/20/15at 22:29; Start 12/17/15 at 21:15; Stop 12/21/15 at 13:16; Status DC Metoclopramide HCl (Reglan Inj) 10 mg Q8HR IV PUSH Last administered on at 12:51; Start 12/18/15 at 14:00; Stop 12/24/15 at 12:46; Status DC Lactulose 30 ml 30 ml Q12H PO ; Start 12/18/15 at 13:00; Stop 12/19/15 at 10:06 ; Status DC Potassium Phosphate/Sodium Chloride (Potassium Phosphate Inj/NS 250 ml Inj) 260 ml @ 43.333 mls/ hr ONCE ONCE IV Last administered on 12/19/15at 10:25; Start 12/19/15 at 10:00; Stop 12/19/15 at 15:59; Status DC Pantoprazole Sodium (Protonix Inj) 40 mg Q24H IV PUSH Last administered on 12/22at 12:51; Start 12/19/15 at 12:00; Stop 12/24/15 at 11:37; Status DC Metoprolol Tartrate (Lopressor Inj) 5 mg Q4HR IV PUSH Last administered on 12/20at 12:36; Start 12/19/15 at 12:00; Stop 12/21/15 at 12:49; Status DC Fentanyl (Duragesic 50 Mcg Patch.72 Hr) 1 patch Q3D TD Last administered on 01/31/16at 08:16; Start 12/20/15 at 09:00; Stop 02/03/16 at 08:45; Status DC Miscellaneous Information 1 Q3D TD Last administered on 01/31/16at 08:16; Start 12/23/15 at 09:00; Stop 01/31/16 at 10:57; Status DC Acetaminophen/ Hydrocodone Bitart ([place] 5-325 Mg) 1 tab Q6H PRN PO PAIN SCALE 1 TO 5; Start 12/20/15 at 09:00; Stop 12/21/15 at 13:45; Status DC Acetaminophen/ Hydrocodone Bitart ([place] 5-325 Mg) 2 tab Q6H PRN PO PAIN SCALE 6 TO 10; Start 12/20/15 at 09:00; Stop 12/21/15 at 13:45; Status DC Morphine Sulfate (Morphine Inj) 2 mg Q2HR PRN IV PUSH PAIN SCALE 8 TO 10 Last administered on 12/24/15at 14:44; Start 12/20/15 at 09:00; Stop 12/25/15 at 13:18 ; Status DC Morphine Sulfate (Morphine Inj) 4 mg Q4HR PRN IV PUSH PAIN SCALE 6 TO 10 Last administered on 12/20/15at 22:32; Start 12/20/15 at 09:00; Stop 12/21/15 at 13:45 ; Status DC Enoxaparin Sodium (Lovenox Inj) 30 mg Q12H SQ Last administered on 01/16/16at 22 :26; Start 12/20/15 at 10:00; Stop 01/17/16 at 09:48; Status DC Metoprolol Tartrate (Lopressor Inj) 5 mg ONCE ONCE IV PUSH Last administered on 12/21/15at 13:22; Start 12/21/15 at 12:45; Stop 12/21/15 at 12:56; Status DC Metoprolol Tartrate (Lopressor Inj) 10 mg Q4HR IV PUSH Last administered on at 09:28; Start 12/21/15 at 16:00; Stop 12/24/15 at 11:35; Status DC Olanzapine 5 mg 5 mg Q8H PRN PO AGITATION AND/OR HALLUCINATION Last administered on 12/31/15at 12:37; Start 12/21/15 at 13:00; Stop 01/14/16 at 13:04 ; Status DC Potassium Chloride 100 ml @ 50 mls/hr Q2H PRN IV For Potassium 2.8 - 3.2 mEq/L ; Start 12/21/15 at 13:00; Stop 01/13/16 at 21:27; Status DC Potassium Chloride (KCl 20 Meq Premix Inj) 100 ml @ 50 mls/hr Q2H PRN IV For Potassium 2.8 - 3.2 mEq/L; Start 12/21/15 at 13:00; Stop 01/13/16 at 21:27; Status DC Potassium Chloride 40 meq 40 meq UNSCH PRN PO/TUBE For Potassium 3.3 - 3.5 mEq/ L Last administered on 12/21/15at 15:19; Start 12/21/15 at 13:00; Stop 01/13/16 at 21:27; Status DC Potassium Chloride 100 ml @ 25 mls/hr UNSCH PRN IV For Potassium 3.3 - 3.5 mEq /L; Start 12/21/15 at 13:00; Stop 01/13/16 at 21:27; Status DC Potassium Chloride 100 ml @ 50 mls/hr Q2H PRN IV For Potassium 3.3 - 3.5 mEq/L ; Start 12/21/15 at 13:00; Stop 01/13/16 at 21:27; Status DC Magnesium Sulfate/ Sodium Chloride (Magnesium Sulfate Inj/NS Inj) 100 ml @ 50 mls/hr UNSCH PRN IV For Magnesium 0.9 - 1.1 mg/dL; Start 12/21/15 at 13:00; Stop 01/13/16 at 21:27; Status DC Magnesium Oxide 800 mg 800 mg UNSCH PRN PO For Magnesium 1.2 - 1.6 mg/dL; Start 12/21/15 at 13:00; Stop 01/13/16 at 21:27; Status DC Magnesium Sulfate/ Sodium Chloride (Magnesium Sulfate Inj/NS Inj) 100 ml @ 50 mls/hr UNSCH PRN IV For Magnesium 1.2 - 1.6 mg/dL; Start 12/21/15 at 13:00; Stop 01/13/16 at 21:27; Status DC Potassium Phosphate 2000 mg 2,000 mg Q4H PRN PO For Phosphorus < 2.5 mg/dL; Start 12/21/15 at 13:00; Stop 01/13/16 at 21:27; Status DC Sodium Phosphate/ Sodium Chloride (Sodium Phosphate Inj/NS 250 ml Inj) 250 ml @ 42 mls/hr UNSCH PRN IV For Phosphorus < 2.5 mg/dL Last administered on at 11:18; Start 12/21/15 at 13:00; Stop 01/13/16 at 21:27; Status DC Potassium Chloride (KCl 40 Meq/30 ml Liq) 40 meq UNSCH PRN PO/TUBE SEE LABEL COMMENTS; Start 12/21/15 at 13:00; Stop 01/13/16 at 21:27; Status DC Potassium Phosphate 2000 mg 2,000 mg UNSCH PRN PO/TUBE SEE LABEL COMMENTS; Start 12/21/15 at 13:00; Stop 01/13/16 at 21:27; Status DC Potassium Phosphate/Sodium Chloride (Potassium Phosphate Inj/NS 250 ml Inj) 260 ml @ 42 mls/hr UNSCH PRN IV SEE LABEL COMMENTS; Start 12/21/15 at 13:00; Stop 01/13/16 at 21:27; Status DC Oxycodone HCl (Roxicodone Intensol Liq) 5 mg Q4H PRN PO PAIN SCALE 4 TO 7 Last administered on 01/13/16at 11:08; Start 12/21/15 at 13:45; Stop 01/14/16 at 13:04 ; Status DC Labetalol HCl (Trandate Inj) 20 mg Q1H PRN IV PUSH SBP>170, DBP>90, HR>65 Last administered on 12/27/15at 10:22; Start 12/21/15 at 14:30; Stop 01/13/16 at 21:27 ; Status DC Levetriacetam (Keppra Liq) 500 mg Q12HR TUBE Last administered on 03/07/16at 08:28; Start 12/22/15 at 21:00 Acetaminophen (Tylenol 650 Mg/ 20 ml Liq) 650 mg Q6H PRN J-TUBE PAIN SCALE 1 TO 5, T > 101 Last administered on 02/21/16at 06:23; Start 12/22/15 at 11:00 Labetalol HCl (Trandate Inj) 40 mg NOW ONCE IVP ; Start 12/23/15 at 12:00; Stop 12/23/15 at 12:01; Status DC Acetaminophen 650 mg 650 mg NOW ONCE J-TUBE ; Start 12/23/15 at 13:45; Stop at 13:46; Status DC Vancomycin HCl 1250 mg/Sodium Chloride 275 ml @ 250 mls/hr ONCE ONCE IV Last administered on 12/23/15at 17:14; Start 12/23/15 at 16:00; Stop 12/23/15 at 17:05 ; Status DC Piperacillin Sod/ Tazobactam Sod (Zosyn 3.375 Gm Premix) 50 ml @ 100 mls/hr Q8H IV Last administered on 01/05/16at 15:51; Start 12/23/15 at 16:00; Stop 04/11 at 18:15; Status DC Metoprolol Tartrate (Lopressor) 25 mg Q8HR TUBE Last administered on 01/15/16at 13:14; Start 12/24/15 at 14:00; Stop 01/15/16 at 15:23; Status DC Pantoprazole Sodium (Protonix Inj) 40 mg Q24H IV PUSH Last administered on 12/23at 12:21; Start 12/24/15 at 12:00; Stop 12/24/15 at 13:00; Status DC Ranitidine HCl (Zantac Liq) 150 mg Q12HR TUBE Last administered on 01/15/16at 10:14; Start 12/25/15 at 09:00; Stop 01/15/16 at 15:24; Status DC Metoclopramide HCl (Reglan Liq) 10 mg Q12HR G-TUBE Last administered on at 08:28; Start 12/24/15 at 21:00 Alprazolam (Xanax) 0.25 mg Q8HR PO Last administered on 01/13/16at 13:47; Start 12/25/15 at 14:00; Stop 01/14/16 at 13:04; Status DC Sennosides (Senna Liq) 8.8 mg ONCE ONCE PO Last administered on 12/25/15at 12: 03; Start 12/25/15 at 12:00; Stop 12/25/15 at 12:01; Status DC Sennosides (Senna Liq) 8.8 mg Q12HR PO Last administered on 01/13/16at 11:06; Start 12/25/15 at 21:00; Stop 01/14/16 at 13:04; Status DC Morphine Sulfate (Morphine Inj) 4 mg Q3H PRN IV PUSH PAIN SCALE 8 TO 10 Last administered on 01/17/16at 02:36; Start 12/25/15 at 13:15; Stop 01/17/16 at 09:45 ; Status DC Methylprednisolone Sodium Succinate (SoluMEDROL INJ) 40 mg Q8HR IV PUSH Last administered on 12/27/15at 05:50; Start 12/25/15 at 22:00; Stop 12/27/15 at 07:00; Status DC Midazolam HCl (Versed Inj) 10 mg ONCE ONCE IV Last administered on 12/26/15at 11 :22; Start 12/26/15 at 10:30; Stop 12/26/15 at 10:41; Status DC Fentanyl Citrate (Sublimaze Inj) 250 mcg ONCE ONCE IV PUSH Last administered on 12/26/15at 11:22; Start 12/26/15 at 10:30; Stop 12/26/15 at 10:41; Status DC Rocuronium [place] (Zemuron Inj) 100 mg BOLUS ONCE IV Last administered on 12/25at 11:21; Start 12/26/15 at 10:30; Stop 12/26/15 at 10:44; Status DC Acetylcysteine (Mucomyst 20% Neb) 2 ml Q8HR NEB NEB Last administered on at 07:34; Start 12/27/15 at 00:00; Stop 12/31/15 at 00:00; Status DC Propofol (Diprivan 200 Mg/20 ml Inj) 250 mg STK-MED ONCE IV PUSH ; Start at 13:23; Stop 12/30/15 at 13:46; Status DC Diatrizoate Meglum/ Diatrizoate Sod ( Gastroview Liq) 18 ml ONCE ONCE PO ; Start 12/30/15 at 16:00; Stop 12/30/15 at 16:01; Status Cancel Magnesium Hydroxide 30 ml 30 ml BID PRN PEG CONSTIPATION Last administered on at 09:42; Start 01/02/16 at 19:15; Stop 01/15/16 at 15:23; Status DC Dextrose/Sodium Chloride (D5W-1/2 NS 1000 ml Inj) 1,000 ml @ 60 mls/hr [id number] IV Last administered on 01/05/16at 17:08; Start 01/03/16 at 16:30; Stop 01/06/16 at 08:12; Status DC Ephedrine Sulfate (ePHEDrine/NS 50 MG/5 ML SYR) 50 mg STK-MED ONCE IV ; Start at 12:00; Stop 01/06/16 at 10:00; Status DC Phenylephrine HCl 1000 mcg 1,000 mcg STK-MED ONCE IV ; Start 12/30/15 at 12:00; Stop 01/06/16 at 10:00; Status DC Dextrose/Sodium Chloride (D5W-NS 1000 ml Inj) 1,000 ml @ 42 mls/hr [id number] IV Last administered on 01/13/16at 03:14; Start 01/06/16 at 11:00; Stop 01/15/16 at 14:53; Status DC Hyoscyamine Sulfate (Levsin Inj) 0.125 mg Q6H PRN IVP SECRETIONS Last administered on 01/16/16at 10:43; Start 01/10/16 at 21:45; Stop 01/17/16 at 09:49 ; Status DC Hyoscyamine Sulfate 0.125 mg 0.125 mg Q6H PRN SL SECRETIONS Last administered on 02/03/16at 17:17; Start 01/10/16 at 21:45; Stop 02/10/16 at 11:47; Status DC Levetriacetam (Keppra 500 Mg Premix Inj) 100 ml @ 400 mls/hr BOLUS ONCE IV Last administered on 01/13/16at 21:54; Start 01/13/16 at 22:00; Stop 01/13/16 at 22:14; Status DC Metoprolol Tartrate (Lopressor Inj) 5 mg ONCE ONCE IV PUSH Last administered on 01/13/16at 21:54; Start 01/13/16 at 22:00; Stop 01/13/16 at 22:01; Status DC Alprazolam (Xanax) 0.25 mg Q8HR G-TUBE Last administered on 02/05/16at 04:08; Start 01/14/16 at 14:00; Stop 02/05/16 at 09:53; Status DC Olanzapine (ZyPREXA ZYDIS ODT) 5 mg Q8H PRN .XX AGITATION AND/OR HALLUCINATION Last administered on 02/05/16at 04:08; Start 01/14/16 at 21:00 Oxycodone HCl (Roxicodone Intensol Liq) 5 mg Q4H PRN G-TUBE PAIN SCALE 4 TO 7 Last administered on 01/23/16 12:11; Start 01/14/16 at 13:45; Stop 01/26/16 at 10:13; Status DC Sennosides (Senna Liq) 8.8 mg Q12HR GT Last administered on 02/08/16at 10:57; Start 01/14/16 at 21:00; Stop 02/09/16 at 08:49; Status DC Lorazepam 1 mg 1 mg Q6H PRN IV PUSH SEIZURES Last administered on 01/18/16 10: 51; Start 01/14/16 at 13:00; Stop 01/20/16 at 11:19; Status DC Potassium Chloride/Dextrose/ Sod Cl (D5-1/2 NS + KCl 20 Meq Inj) 1,000 ml @ 84 mls/hr [id number] IV Last administered on 01/16/16at 22:27; Start 01/15/16 at 15:00 ; Stop 01/17/16 at 09:45; Status DC Magnesium Hydroxide (Milk Of Magnesia Liq) 30 ml BID PRN G-TUBE CONSTIPATION Last administered on 03/06/16at 06:21; Start 01/15/16 at 15:30 Metoprolol Tartrate (Lopressor) 25 mg Q8HR G-TUBE Last administered on 21:05; Start 01/15/16 at 22:00; Stop 01/26/16 at 10:13; Status DC Ranitidine HCl (Zantac Liq) 150 mg Q12HR G-TUBE Last administered on 08:44; Start 01/15/16 at 21:00; Stop 02/14/16 at 12:36; Status DC Albuterol Sulfate (Albuterol Neb) 0.63 mg QID NEB NEB Last administered on at 11:36; Start 01/15/16 at 16:00; Stop 01/23/16 at 13:50; Status DC Morphine Sulfate (Morphine Inj) 8 mg STK-MED ONCE .ROUTE Last administered on at 16:41; Start 01/16/16 at 16:41; Stop 01/16/16 at 16:42; Status DC Fentanyl Citrate (Sublimaze Inj) 100 mcg STK-MED ONCE .ROUTE Last administered on 01/16/16at 16:59; Start 01/16/16 at 16:59; Stop 01/16/16 at 17:00; Status DC Midazolam HCl (Versed Inj) 2 mg STK-MED ONCE .ROUTE Last administered on at 16:59; Start 01/16/16 at 16:59; Stop 01/16/16 at 17:00; Status DC Iohexol (Omnipaque 350 Inj) 25 ml STK-MED ONCE G-TUBE Last administered on 01/15at 17:20; Start 01/16/16 at 17:20; Stop 01/16/16 at 17:36; Status DC Enoxaparin Sodium (Lovenox Inj) 40 mg Q24H SQ ; Start 01/17/16 at 22:00; Stop at 22:00; Status DC Sodium Biphosphate/ Sodium Phosphate (Fleets Enema (Adult)) 133 ml UNSCH PRN [place] CONSTIPATION; Start 01/17/16 at 10:00 Enoxaparin Sodium (Lovenox Inj) 40 mg Q24H SQ Last administered on 03/06/16at 21:14; Start 01/17/16 at 22:00 Morphine Sulfate (Morphine Inj) 4 mg ONCE ONCE IV PUSH Last administered on at 00:38; Start 01/20/16 at 00:15; Stop 01/20/16 at 00:17; Status DC Morphine Sulfate 4 mg 4 mg Q3H PRN IV PUSH PAIN SCALE 7 TO 10 Last administered on 01/26/16at 06:07; Start 01/20/16 at 08:30; Stop 01/26/16 at 10:11; Status DC Levofloxacin/ Dextrose (Levaquin 750 Mg Premix Inj) 150 ml @ 100 mls/hr Q24H IV Last administered on 01/29/16at 12:08; Start 01/20/16 at 12:00; Stop 01/29/16 at 19:00; Status DC Morphine Sulfate (Morphine Inj) 2 mg Q4HR PRN IV PUSH BREAKTHROUGH PAIN Last administered on 01/27/16at 19:23; Start 01/26/16 at 12:00; Stop 01/30/16 at 08:13; Status DC Acetaminophen/ Hydrocodone Bitart (Hycet 325-7.5 Mg Liq) 10 ml Q6H PRN PO PAIN SCALE 6 TO 10 Last administered on 01/30/16at 01:03; Start 01/26/16 at 10:15; Stop 01/30/16 at 08:13; Status DC Metoprolol Tartrate (Lopressor) 12.5 mg Q12HR G-TUBE Last administered on at 09:30; Start 01/26/16 at 21:00; Stop 03/03/16 at 06:26; Status DC Promethazine HCl (Phenergan Inj) 12.5 mg Q4H PRN IM nausea Last administered on 03/07/16at 10:07; Start 01/27/16 at 20:15 Scopolamine (Transderm-Scop 1.5 Mg Patch.72 Hr) 1 patch Q3D TD Last administered on 02/08/16at 23:13; Start 01/27/16 at 21:00; Stop 02/11/16 at 08:07 ; Status DC Miscellaneous Information 1 Q3D TD Last administered on 02/08/16at 21:00; Start 01/30/16 at 21:00; Stop 02/11/16 at 08:07; Status DC Acetaminophen/ Hydrocodone Bitart (Hycet 325-7.5 Mg Liq) 5 ml Q6H PRN PO PAIN SCALE 6 TO 10 Last administered on 02/02/16at 12:50; Start 01/30/16 at 10:15; Stop 02/03/16 at 15:46; Status DC Fentanyl (Duragesic 25 Mcg Patch.72 Hr) 1 patch Q3D TD Last administered on 03/07/16at 08:29; Start 02/03/16 at 09:00 Miscellaneous Information 1 Q3D TD Last administered on 03/04/16at 11:00; Start 02/03/16 at 11:00 Metoprolol Tartrate 12.5 mg 12.5 mg ONCE ONCE PO Last administered on at 05:10; Start 02/01/16 at 04:45; Stop 02/01/16 at 04:51; Status DC Pharmacy Profile Note 0 ml @ 0 mls/hr UNSCH OTHER ; Start 02/01/16 at 07:45; Stop 02/04/16 at 16:02; Status DC Vancomycin HCl 1000 mg/Sodium Chloride 250 ml @ 250 mls/hr ONCE ONCE IV Last administered on 02/01/16at 08:25; Start 02/01/16 at 08:00; Stop 02/01/16 at 08:59; Status DC Piperacillin Sod/ Tazobactam Sod 100 ml @ 200 mls/hr Q6H IV Last administered on 02/06/16at 09:43; Start 02/01/16 at 09:00; Stop 02/06/16 at 14:49; Status DC Sodium Chloride 1,000 ml @ 100 mls/hr Q10H IV ; Start 02/01/16 at 07:45; Stop at 09:16; Status DC Sodium Chloride 1,000 ml @ 999 mls/hr BOLUS ONCE IV Last administered on at 08:24; Start 02/01/16 at 07:45; Stop 02/01/16 at 08:45; Status DC Sodium Chloride (NS 1000 ml Inj) 1,000 ml @ 75 mls/hr [id number] IV Last administered on 02/04/16at 05:21; Start 02/01/16 at 09:15; Stop 02/04/16 at 09:04 ; Status DC Miscellaneous Information SPECIFIC LAB TO BE DRAWN:VANCO TROUGH DATE... ONCE ONCE XX Last administered on 02/03/16at 14:32; Start 02/03/16 at 13:45; Stop at 13:46; Status DC Diatrizoate Meglum/ Diatrizoate Sod ( Gastroview Liq) 18 ml ONCE ONCE PO Last administered on 02/01/16at 12:06; Start 02/01/16 at 12:00; Stop 02/01/16 at 12: 01; Status DC Albuterol/ Ipratropium 1 ampule 1 ampule Q6HR WHILE AWAKE NEB NEB Last administered on 02/05/16at 19:56; Start 02/01/16 at 20:00; Stop 02/05/16 at 20:00 ; Status DC Sodium Chloride (NS 1000 ml Inj) 1,000 ml @ 999 mls/hr BOLUS ONCE IV Last administered on 9/7/16at 16:10; Start 02/01/16 at 16:30; Stop 02/01/16 at 17:30; Status DC Iohexol (Omnipaque 350 Inj) 70 ml STK-MED ONCE IV Last administered on at 16:38; Start 02/01/16 at 16:38; Stop 02/01/16 at 16:39; Status DC Miscellaneous Information Patient in critical care unit? Ass... [id number] Last administered on 02/01/16at 18:15; Start 02/01/16 at 18:15 Chlorhexidine Gluconate (Chlorhexidine 2% Cloth) 3 pack DAILY@04 TOP Last administered on 02/04/16at 03:53; Start 02/02/16 at 04:00; Stop 02/06/16 at 04:01 ; Status DC Chlorhexidine Gluconate 3 pack 3 pack UNSCH PRN TOP HYGIENIC CARE; Start at 18:15; Stop 02/06/16 at 18:04; Status DC Sodium Chloride 1,000 ml @ 999 mls/hr BOLUS ONCE IV Last administered on at 19:30; Start 02/01/16 at 19:30; Stop 02/01/16 at 20:30; Status DC Sodium Chloride 1,000 ml @ 999 mls/hr BOLUS ONCE IV Last administered on at 20:29; Start 02/01/16 at 20:30; Stop 02/01/16 at 21:30; Status DC Vancomycin HCl 1000 mg/Sodium Chloride 250 ml @ 250 mls/hr Q18H IV Last administered on 02/03/16at 14:32; Start 02/02/16 at 02:00; Stop 02/03/16 at 17:31; Status DC Sodium Chloride 1,000 ml @ 999 mls/hr BOLUS ONCE IV Last administered on at 00:39; Start 02/02/16 at 00:30; Stop 02/02/16 at 01:30; Status DC Sodium Chloride 1,000 ml @ 999 mls/hr BOLUS ONCE IV Last administered on at 08:11; Start 02/02/16 at 08:00; Stop 02/02/16 at 09:00; Status DC Potassium Chloride/Sodium Chloride (NS + KCl 20 Meq Inj) 1,000 ml @ 125 mls/hr Q8H ONCE IV Last administered on 02/02/16at 23:52; Start 02/02/16 at 23:45; Stop 02/03/16 at 07:44; Status DC Acetaminophen/ Hydrocodone Bitart (Hycet 325-7.5 Mg Liq) 15 ml Q6H PRN PO PAIN SCALE 6 TO 10 Last administered on 03/07/16at 08:29; Start 02/03/16 at 16:15 Furosemide 20 mg 20 mg ONCE ONCE IV PUSH Last administered on 02/03/16at 17:16; Start 02/03/16 at 17:15; Stop 02/03/16 at 17:16; Status DC Vancomycin HCl/ Sodium Chloride (Vancomycin Inj/ NS 250 ml Inj) 275 ml @ 275 mls/hr Q18H IV Last administered on 02/04/16at 03:53; Start 02/04/16 at 04:00; Stop 02/04/16 at 15:19; Status DC Miscellaneous Information SPECIFIC LAB TO BE SHARON... ONCE ONCE XX ; Start at 09:45; Stop 02/06/16 at 09:46; Status Cancel Potassium Chloride (KCl 20 Meq Premix Inj) 100 ml @ 50 mls/hr Q2H IV Last administered on 02/04/16at 11:00; Start 02/04/16 at 09:00; Stop 02/04/16 at 12:59 ; Status DC Potassium Chloride (KCl) 20 meq ONCE ONCE PO Last administered on 02/04/16at 08 :46; Start 02/04/16 at 08:30; Stop 02/04/16 at 08:51; Status DC Potassium Chloride (KCl 40 Meq/30 ml Liq) 20 meq ONCE ONCE G-TUBE Last administered on 02/04/16at 10:00; Start 02/04/16 at 09:00; Stop 02/04/16 at 09:01 ; Status DC Furosemide 20 mg 20 mg ONCE ONCE IV PUSH Last administered on 02/04/16at 10:05 ; Start 02/04/16 at 09:00; Stop 02/04/16 at 09:01; Status DC Magnesium Sulfate/ Dextrose (Magnesium Sulfate 1 Gm Premix) 100 ml @ 100 mls/ hr ONCE ONCE IV Last administered on 02/04/16at 09:08; Start 02/04/16 at 09:00 ; Stop 02/04/16 at 09:59; Status DC Escitalopram Oxalate 20 mg 20 mg HS PO Last administered on 02/12/16at 21:34; Start 02/04/16 at 21:00; Stop 02/14/16 at 17:16; Status DC Potassium Chloride 100 ml @ 50 mls/hr Q2H IV Last administered on 02/05/16at 11 :00; Start 02/05/16 at 09:00; Stop 02/05/16 at 12:59; Status DC Magnesium Sulfate/ Dextrose (Magnesium Sulfate 1 Gm Premix) 100 ml @ 100 mls/ hr ONCE ONCE IV Last administered on 02/05/16at 08:00; Start 02/05/16 at 08:00 ; Stop 02/05/16 at 08:59; Status DC Alprazolam (Xanax) 0.25 mg Q6H PRN PO agitation; Start 02/05/16 at 09:45; Stop 02/05/16 at 09:53; Status DC Furosemide (Lasix) 20 mg DAILY PO Last administered on 02/09/16at 10:07; Start 02/06/16 at 09:00; Stop 02/10/16 at 08:59; Status DC Alprazolam 0.5 mg 0.5 mg Q8HR G-TUBE Last administered on 02/14/16at 13:51; Start 02/05/16 at 14:00; Stop 02/14/16 at 17:15; Status DC Potassium Chloride (KCl 20 Meq Premix Inj) 100 ml @ 50 mls/hr Q2H IV Last administered on 02/06/16at 18:36; Start 02/06/16 at 16:00; Stop 02/06/16 at 19:59 ; Status DC Potassium Bicarb/ Potassium Chloride (K-Lyte Cl Eff) 50 meq ONCE ONCE PO Last administered on 02/06/16at 15:51; Start 02/06/16 at 15:30; Stop 02/06/16 at 15:31; Status DC Levofloxacin (Levaquin) 750 mg DAILY PO Last administered on 02/10/16at 09:00; Start 02/07/16 at 09:00; Stop 02/11/16 at 08:59; Status DC Sennosides (Senna Liq) 8.8 mg Q12HR PRN GT CONSTIPATION; Start 02/09/16 at 09: 00 Pantoprazole Sodium (Protonix) 40 mg DAILY PO Last administered on 02/15/16at 11 :44; Start 02/14/16 at 13:00; Stop 02/15/16 at 12:58; Status DC Ondansetron HCl (Zofran Odt) 4 mg ONCE ONCE PO Last administered on at 13:51; Start 02/14/16 at 12:45; Stop 02/14/16 at 12:46; Status DC Furosemide (Lasix Inj) 40 mg ONCE ONCE IV PUSH Last administered on 02/14/16at 17:17; Start 02/14/16 at 16:45; Stop 02/14/16 at 16:46; Status DC Alprazolam 0.25 mg 0.25 mg Q8H PRN G-TUBE anxiety Last administered on at 17:57; Start 02/14/16 at 17:15 Levofloxacin/ Dextrose 150 ml @ 100 mls/hr Q24H IV Last administered on at 21:00; Start 02/14/16 at 21:00; Stop 02/15/16 at 08:43; Status DC Piperacillin Sod/ Tazobactam Sod (Zosyn 4.5 Gm Premix) 100 ml @ 200 mls/hr Q6H IV Last administered on 02/15/16at 11:43; Start 02/15/16 at 11:00; Stop at 12:47; Status DC Ondansetron HCl 4 mg 4 mg TID PO Last administered on 03/07/16at 11:57; Start 02/15/16 at 13:00 Ceftriaxone Sodium/Sodium Chloride (Rocephin Inj/NS Inj) 100 ml @ 200 mls/hr Q24H IV Last administered on 02/24/16at 13:42; Start 02/15/16 at 13:00; Stop at 17:00; Status DC Pantoprazole Sodium (Protonix) 40 mg BID PO Last administered on 02/22/16at 21: 32; Start 02/15/16 at 21:00; Stop 02/23/16 at 16:36; Status DC Docusate Sodium (Colace) 100 mg BID PO ; Start 02/15/16 at 13:00; Stop 02/15/16 at 15:33; Status DC Sennosides (Senokot) 17.2 mg DAILY PO Last administered on 03/06/16at 08:49; Start 02/15/16 at 13:00 Lactulose (Lactulose Liq) 30 ml ONCE ONCE PO Last administered on 02/15/16at 13 :57; Start 02/15/16 at 13:00; Stop 02/15/16 at 13:01; Status DC Sodium Polystyrene Sulfonate (Kayexalate Liq) 30 gm ONCE ONCE GT Last administered on 02/15/16at 16:14; Start 02/15/16 at 15:45; Stop 02/15/16 at 15:46 ; Status DC Docusate Sodium 100 mg 100 mg Q12HR PO ; Start 02/15/16 at 21:00; Status UNV Dextrose/Sodium Chloride (D5W-NS 1000 ml Inj) 1,000 ml @ 75 mls/hr [id number] IV Last administered on 02/16/16at 05:10; Start 02/15/16 at 15:45; Stop 02/16/16 at 13:42; Status DC Docusate Sodium (Colace) 100 mg Q12HR PO Last administered on 03/06/16at 21:12 ; Start 02/15/16 at 21:00 Hydromorphone HCl (Dilaudid Pf Inj) 0.2 mg ONCE ONCE IV PUSH Last administered on 02/18/16at 03:14; Start 02/18/16 at 02:45; Stop 02/18/16 at 02:46 ; Status DC Hydromorphone HCl (Dilaudid Pf Inj) 0.2 mg Q4H PRN IV PUSH BREAKTHROUGH PAIN Last administered on 03/06/16at 06:00; Start 02/18/16 at 13:15; Stop 03/06/16 at 09:46; Status DC Influenza Virus Vaccine (Flu (Quadrivalent) Vaccine Inj) 0.5 ml ONCE ONCE IM Last administered on 02/21/16at 11:39; Start 02/21/16 at 10:00; Stop 02/21/16 at 10:01; Status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
[2016-03-07] MEDS ORDERED: DOCUSATE SODIUM 100 MG/10 ML UDC G-TUBE PRN (15:00)
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
[2016-03-07] MEDS ORDERED: METHYLNALTREXONE BROMIDE 12 MG/0.6 ML VIAL SQ ONE (17:00)
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
[2016-03-07] MEDS: ENOXAPARIN SODIUM 40 MG/0.4 ML SYRINGE SQ SCH (21:27)
[2016-03-08] VITALS (9 sets, daily range): BP systolic 102–142; BP diastolic 59–78; PULSE 73–91; RESP 16–20; TEMP 95.3–97.9; O2SAT 94–99
[2016-03-08] MEDS: TEMAZEPAM 15 MG CAP PO PRN (00:40)
[2016-03-08] MEDS: HYDROmorphone HCL PF 1 MG/ML VIAL IV PUSH PRN (00:41)
[2016-03-08] MEDS: ONDANSETRON ODT 4 MG TAB PO SCH ×3 (09:53→17:52)
[2016-03-08] MEDS: METOCLOPRAMIDE HCL SYRUP 10 MG/10 ML UDC G-TUBE SCH ×2 (09:54→21:54)
[2016-03-08] MEDS: levETIRAcetam 500 MG/5 ML UDC TUBE SCH ×2 (09:54→21:54)
[2016-03-08] MEDS: SODIUM CHLORIDE 0.9% FLUSH 5 ML FLUSH IVF SCH ×2 (09:54→21:54)
[2016-03-08] MEDS: LANSOPRAZOLE SOLUTAB 30 MG TAB NG SCH (09:54)
[2016-03-08] MEDS: SENNOSIDES 8.6 MG TAB PO SCH (09:54)
[2016-03-08] MEDS: CEFEPIME INJ 2,000 MG in SODIUM CHLORIDE 0.9% INJ 100 ML IV SCH (09:54)
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
--- NOTE | 2016-03-08 12:40 | HHI.PR ---
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 ; Stop 12/13/15 at 15:07; Status DC Flumazenil (Romazicon Inj) 0.4 mg ONCE ONCE IV PUSH Last administered on at 16:18; Start 12/13/15 at 16:00; Stop 12/13/15 at 16:01; Status DC Glucagon (Glucagon Inj) 1 mg STK-MED ONCE .ROUTE Last administered on at 14:15; Start 12/14/15 at 14:12; Stop 12/14/15 at 14:13; Status DC Metoclopramide HCl (Reglan Inj) 10 mg STK-MED ONCE .ROUTE Last administered on 12/14/15at 14:28; Start 12/14/15 at 14:28; Stop 12/14/15 at 14:29; Status DC Midazolam HCl (Versed Inj) 10 mg ONCE ONCE IV PUSH Last administered on at 15:19; Start 12/14/15 at 14:45; Stop 12/14/15 at 14:51; Status DC Vecuronium [place] (Norcuron 10 Mg Inj) 10 mg ONCE ONCE IV PUSH Last administered on 12/14/15at 15:19; Start 12/14/15 at 14:45; Stop 12/14/15 at 14:51 ; Status DC Fentanyl Citrate (Sublimaze Inj) 250 mcg ONCE ONCE IV PUSH Last administered on 12/14/15at 15:20; Start 12/14/15 at 14:45; Stop 12/14/15 at 14:51; Status DC Iohexol (Omnipaque 350 Inj) 80 ml STK-MED ONCE G-TUBE Last administered on 12/13at 15:00; Start 12/14/15 at 14:55; Stop 12/14/15 at 14:56; Status DC Albuterol/ Ipratropium (Duoneb Neb) 1 ampule Q6HR NEB NEB Last administered on 12/28/15at 08:04; Start 12/15/15 at 10:00; Stop 12/28/15 at 13:16; Status DC Diatrizoate Meglum/ Diatrizoate Sod ( Gastroview Liq) 18 ml ONCE ONCE PO Last administered on 12/15/15at 11:54; Start 12/15/15 at 11:15; Stop 12/15/15 at 11:16; Status DC Rocuronium [place] (Zemuron Inj) 50 mg BOLUS ONCE IV ; Start 12/15/15 at 14:30 ; Stop 12/15/15 at 14:31; Status DC Iohexol (Omnipaque 350 Inj) 96 ml STK-MED ONCE IV Last administered on at 14:56; Start 12/15/15 at 14:56; Stop 12/15/15 at 14:57; Status DC Midazolam HCl (Versed Inj) 5 mg STK-MED ONCE .ROUTE ; Start 12/16/15 at 08:41; Stop 12/16/15 at 08:42; Status DC Midazolam HCl (Versed Inj) 5 mg ONCE STAT IV Last administered on 12/16/15at 09 :30; Start 12/16/15 at 09:30; Stop 12/16/15 at 09:31; Status DC Miscellaneous Information SPECIFIC LAB TO BE SHARON... ONCE ONCE XX ; Start at 08:45; Stop 12/19/15 at 08:45; Status DC Midazolam HCl (Versed Inj) 2 mg Q2H PRN IV PUSH agitation Last administered on 12/20/15at 22:29; Start 12/17/15 at 21:15; Stop 12/21/15 at 13:16; Status DC Metoclopramide HCl (Reglan Inj) 10 mg Q8HR IV PUSH Last administered on at 12:51; Start 12/18/15 at 14:00; Stop 12/24/15 at 12:46; Status DC Lactulose 30 ml 30 ml Q12H PO ; Start 12/18/15 at 13:00; Stop 12/19/15 at 10:06 ; Status DC Potassium Phosphate/Sodium Chloride (Potassium Phosphate Inj/NS 250 ml Inj) 260 ml @ 43.333 mls/ hr ONCE ONCE IV Last administered on 12/19/15at 10:25; Start 12/19/15 at 10:00; Stop 12/19/15 at 15:59; Status DC Pantoprazole Sodium (Protonix Inj) 40 mg Q24H IV PUSH Last administered on 12/22at 12:51; Start 12/19/15 at 12:00; Stop 12/24/15 at 11:37; Status DC Metoprolol Tartrate (Lopressor Inj) 5 mg Q4HR IV PUSH Last administered on 12/20at 12:36; Start 12/19/15 at 12:00; Stop 12/21/15 at 12:49; Status DC Fentanyl (Duragesic 50 Mcg Patch.72 Hr) 1 patch Q3D TD Last administered on 01/31/16at 08:16; Start 12/20/15 at 09:00; Stop 02/03/16 at 08:45; Status DC Miscellaneous Information 1 Q3D TD Last administered on 01/31/16at 08:16; Start 12/23/15 at 09:00; Stop 01/31/16 at 10:57; Status DC Acetaminophen/ Hydrocodone Bitart ([place] 5-325 Mg) 1 tab Q6H PRN PO PAIN SCALE 1 TO 5; Start 12/20/15 at 09:00; Stop 12/21/15 at 13:45; Status DC Acetaminophen/ Hydrocodone Bitart ([place] 5-325 Mg) 2 tab Q6H PRN PO PAIN SCALE 6 TO 10; Start 12/20/15 at 09:00; Stop 12/21/15 at 13:45; Status DC Morphine Sulfate (Morphine Inj) 2 mg Q2HR PRN IV PUSH PAIN SCALE 8 TO 10 Last administered on 12/24/15at 14:44; Start 12/20/15 at 09:00; Stop 12/25/15 at 13:18 ; Status DC Morphine Sulfate (Morphine Inj) 4 mg Q4HR PRN IV PUSH PAIN SCALE 6 TO 10 Last administered on 12/20/15at 22:32; Start 12/20/15 at 09:00; Stop 12/21/15 at 13:45 ; Status DC Enoxaparin Sodium (Lovenox Inj) 30 mg Q12H SQ Last administered on 01/16/16at 22 :26; Start 12/20/15 at 10:00; Stop 01/17/16 at 09:48; Status DC Metoprolol Tartrate (Lopressor Inj) 5 mg ONCE ONCE IV PUSH Last administered on 12/21/15at 13:22; Start 12/21/15 at 12:45; Stop 12/21/15 at 12:56; Status DC Metoprolol Tartrate (Lopressor Inj) 10 mg Q4HR IV PUSH Last administered on at 09:28; Start 12/21/15 at 16:00; Stop 12/24/15 at 11:35; Status DC Olanzapine 5 mg 5 mg Q8H PRN PO AGITATION AND/OR HALLUCINATION Last administered on 12/31/15at 12:37; Start 12/21/15 at 13:00; Stop 01/14/16 at 13:04 ; Status DC Potassium Chloride 100 ml @ 50 mls/hr Q2H PRN IV For Potassium 2.8 - 3.2 mEq/L ; Start 12/21/15 at 13:00; Stop 01/13/16 at 21:27; Status DC Potassium Chloride (KCl 20 Meq Premix Inj) 100 ml @ 50 mls/hr Q2H PRN IV For Potassium 2.8 - 3.2 mEq/L; Start 12/21/15 at 13:00; Stop 01/13/16 at 21:27; Status DC Potassium Chloride 40 meq 40 meq UNSCH PRN PO/TUBE For Potassium 3.3 - 3.5 mEq/ L Last administered on 12/21/15at 15:19; Start 12/21/15 at 13:00; Stop 01/13/16 at 21:27; Status DC Potassium Chloride 100 ml @ 25 mls/hr UNSCH PRN IV For Potassium 3.3 - 3.5 mEq /L; Start 12/21/15 at 13:00; Stop 01/13/16 at 21:27; Status DC Potassium Chloride 100 ml @ 50 mls/hr Q2H PRN IV For Potassium 3.3 - 3.5 mEq/L ; Start 12/21/15 at 13:00; Stop 01/13/16 at 21:27; Status DC Magnesium Sulfate/ Sodium Chloride (Magnesium Sulfate Inj/NS Inj) 100 ml @ 50 mls/hr UNSCH PRN IV For Magnesium 0.9 - 1.1 mg/dL; Start 12/21/15 at 13:00; Stop 01/13/16 at 21:27; Status DC Magnesium Oxide 800 mg 800 mg UNSCH PRN PO For Magnesium 1.2 - 1.6 mg/dL; Start 12/21/15 at 13:00; Stop 01/13/16 at 21:27; Status DC Magnesium Sulfate/ Sodium Chloride (Magnesium Sulfate Inj/NS Inj) 100 ml @ 50 mls/hr UNSCH PRN IV For Magnesium 1.2 - 1.6 mg/dL; Start 12/21/15 at 13:00; Stop 01/13/16 at 21:27; Status DC Potassium Phosphate 2000 mg 2,000 mg Q4H PRN PO For Phosphorus < 2.5 mg/dL; Start 12/21/15 at 13:00; Stop 01/13/16 at 21:27; Status DC Sodium Phosphate/ Sodium Chloride (Sodium Phosphate Inj/NS 250 ml Inj) 250 ml @ 42 mls/hr UNSCH PRN IV For Phosphorus < 2.5 mg/dL Last administered on at 11:18; Start 12/21/15 at 13:00; Stop 01/13/16 at 21:27; Status DC Potassium Chloride (KCl 40 Meq/30 ml Liq) 40 meq UNSCH PRN PO/TUBE SEE LABEL COMMENTS; Start 12/21/15 at 13:00; Stop 01/13/16 at 21:27; Status DC Potassium Phosphate 2000 mg 2,000 mg UNSCH PRN PO/TUBE SEE LABEL COMMENTS; Start 12/21/15 at 13:00; Stop 01/13/16 at 21:27; Status DC Potassium Phosphate/Sodium Chloride (Potassium Phosphate Inj/NS 250 ml Inj) 260 ml @ 42 mls/hr UNSCH PRN IV SEE LABEL COMMENTS; Start 12/21/15 at 13:00; Stop 01/13/16 at 21:27; Status DC Oxycodone HCl (Roxicodone Intensol Liq) 5 mg Q4H PRN PO PAIN SCALE 4 TO 7 Last administered on 01/13/16at 11:08; Start 12/21/15 at 13:45; Stop 01/14/16 at 13:04 ; Status DC Labetalol HCl (Trandate Inj) 20 mg Q1H PRN IV PUSH SBP>170, DBP>90, HR>65 Last administered on 12/27/15at 10:22; Start 12/21/15 at 14:30; Stop 01/13/16 at 21:27 ; Status DC Levetriacetam (Keppra Liq) 500 mg Q12HR TUBE Last administered on 03/08/16at 09:54; Start 12/22/15 at 21:00 Acetaminophen (Tylenol 650 Mg/ 20 ml Liq) 650 mg Q6H PRN J-TUBE PAIN SCALE 1 TO 5, T > 101 Last administered on 02/21/16at 06:23; Start 12/22/15 at 11:00 Labetalol HCl (Trandate Inj) 40 mg NOW ONCE IVP ; Start 12/23/15 at 12:00; Stop 12/23/15 at 12:01; Status DC Acetaminophen 650 mg 650 mg NOW ONCE J-TUBE ; Start 12/23/15 at 13:45; Stop at 13:46; Status DC Vancomycin HCl 1250 mg/Sodium Chloride 275 ml @ 250 mls/hr ONCE ONCE IV Last administered on 12/23/15at 17:14; Start 12/23/15 at 16:00; Stop 12/23/15 at 17:05 ; Status DC Piperacillin Sod/ Tazobactam Sod (Zosyn 3.375 Gm Premix) 50 ml @ 100 mls/hr Q8H IV Last administered on 01/05/16at 15:51; Start 12/23/15 at 16:00; Stop 04/11 at 18:15; Status DC Metoprolol Tartrate (Lopressor) 25 mg Q8HR TUBE Last administered on 01/15/16at 13:14; Start 12/24/15 at 14:00; Stop 01/15/16 at 15:23; Status DC Pantoprazole Sodium (Protonix Inj) 40 mg Q24H IV PUSH Last administered on 12/23at 12:21; Start 12/24/15 at 12:00; Stop 12/24/15 at 13:00; Status DC Ranitidine HCl (Zantac Liq) 150 mg Q12HR TUBE Last administered on 01/15/16at 10:14; Start 12/25/15 at 09:00; Stop 01/15/16 at 15:24; Status DC Metoclopramide HCl (Reglan Liq) 10 mg Q12HR G-TUBE Last administered on at 09:54; Start 12/24/15 at 21:00 Alprazolam (Xanax) 0.25 mg Q8HR PO Last administered on 01/13/16at 13:47; Start 12/25/15 at 14:00; Stop 01/14/16 at 13:04; Status DC Sennosides (Senna Liq) 8.8 mg ONCE ONCE PO Last administered on 12/25/15at 12: 03; Start 12/25/15 at 12:00; Stop 12/25/15 at 12:01; Status DC Sennosides (Senna Liq) 8.8 mg Q12HR PO Last administered on 01/13/16at 11:06; Start 12/25/15 at 21:00; Stop 01/14/16 at 13:04; Status DC Morphine Sulfate (Morphine Inj) 4 mg Q3H PRN IV PUSH PAIN SCALE 8 TO 10 Last administered on 01/17/16at 02:36; Start 12/25/15 at 13:15; Stop 01/17/16 at 09:45 ; Status DC Methylprednisolone Sodium Succinate (SoluMEDROL INJ) 40 mg Q8HR IV PUSH Last administered on 12/27/15at 05:50; Start 12/25/15 at 22:00; Stop 12/27/15 at 07:00; Status DC Midazolam HCl (Versed Inj) 10 mg ONCE ONCE IV Last administered on 12/26/15at 11 :22; Start 12/26/15 at 10:30; Stop 12/26/15 at 10:41; Status DC Fentanyl Citrate (Sublimaze Inj) 250 mcg ONCE ONCE IV PUSH Last administered on 12/26/15at 11:22; Start 12/26/15 at 10:30; Stop 12/26/15 at 10:41; Status DC Rocuronium [place] (Zemuron Inj) 100 mg BOLUS ONCE IV Last administered on 12/25at 11:21; Start 12/26/15 at 10:30; Stop 12/26/15 at 10:44; Status DC Acetylcysteine (Mucomyst 20% Neb) 2 ml Q8HR NEB NEB Last administered on at 07:34; Start 12/27/15 at 00:00; Stop 12/31/15 at 00:00; Status DC Propofol (Diprivan 200 Mg/20 ml Inj) 250 mg STK-MED ONCE IV PUSH ; Start at 13:23; Stop 12/30/15 at 13:46; Status DC Diatrizoate Meglum/ Diatrizoate Sod ( Gastroview Liq) 18 ml ONCE ONCE PO ; Start 12/30/15 at 16:00; Stop 12/30/15 at 16:01; Status Cancel Magnesium Hydroxide 30 ml 30 ml BID PRN PEG CONSTIPATION Last administered on at 09:42; Start 01/02/16 at 19:15; Stop 01/15/16 at 15:23; Status DC Dextrose/Sodium Chloride (D5W-1/2 NS 1000 ml Inj) 1,000 ml @ 60 mls/hr [id number] IV Last administered on 01/05/16at 17:08; Start 01/03/16 at 16:30; Stop 01/06/16 at 08:12; Status DC Ephedrine Sulfate (ePHEDrine/NS 50 MG/5 ML SYR) 50 mg STK-MED ONCE IV ; Start at 12:00; Stop 01/06/16 at 10:00; Status DC Phenylephrine HCl 1000 mcg 1,000 mcg STK-MED ONCE IV ; Start 12/30/15 at 12:00; Stop 01/06/16 at 10:00; Status DC Dextrose/Sodium Chloride (D5W-NS 1000 ml Inj) 1,000 ml @ 42 mls/hr [id number] IV Last administered on 01/13/16at 03:14; Start 01/06/16 at 11:00; Stop 01/15/16 at 14:53; Status DC Hyoscyamine Sulfate (Levsin Inj) 0.125 mg Q6H PRN IVP SECRETIONS Last administered on 01/16/16at 10:43; Start 01/10/16 at 21:45; Stop 01/17/16 at 09:49 ; Status DC Hyoscyamine Sulfate 0.125 mg 0.125 mg Q6H PRN SL SECRETIONS Last administered on 02/03/16at 17:17; Start 01/10/16 at 21:45; Stop 02/10/16 at 11:47; Status DC Levetriacetam (Keppra 500 Mg Premix Inj) 100 ml @ 400 mls/hr BOLUS ONCE IV Last administered on 01/13/16at 21:54; Start 01/13/16 at 22:00; Stop 01/13/16 at 22:14; Status DC Metoprolol Tartrate (Lopressor Inj) 5 mg ONCE ONCE IV PUSH Last administered on 01/13/16at 21:54; Start 01/13/16 at 22:00; Stop 01/13/16 at 22:01; Status DC Alprazolam (Xanax) 0.25 mg Q8HR G-TUBE Last administered on 02/05/16at 04:08; Start 01/14/16 at 14:00; Stop 02/05/16 at 09:53; Status DC Olanzapine (ZyPREXA ZYDIS ODT) 5 mg Q8H PRN .XX AGITATION AND/OR HALLUCINATION Last administered on 02/05/16 04:08; Start 01/14/16 at 21:00 Oxycodone HCl (Roxicodone Intensol Liq) 5 mg Q4H PRN G-TUBE PAIN SCALE 4 TO 7 Last administered on 01/23/16at 12:11; Start 01/14/16 at 13:45; Stop 01/26/16 at 10:13; Status DC Sennosides (Senna Liq) 8.8 mg Q12HR GT Last administered on 02/08/16at 10:57; Start 01/14/16 at 21:00; Stop 02/09/16 at 08:49; Status DC Lorazepam 1 mg 1 mg Q6H PRN IV PUSH SEIZURES Last administered on 01/18/16at 10: 51; Start 01/14/16 at 13:00; Stop 01/20/16 at 11:19; Status DC Potassium Chloride/Dextrose/ Sod Cl (D5-1/2 NS + KCl 20 Meq Inj) 1,000 ml @ 84 mls/hr [id number] IV Last administered on 01/16/16at 22:27; Start 01/15/16 at 15:00 ; Stop 01/17/16 at 09:45; Status DC Magnesium Hydroxide (Milk Of Magnesia Liq) 30 ml BID PRN G-TUBE CONSTIPATION Last administered on 03/06/16at 06:21; Start 01/15/16 at 15:30 Metoprolol Tartrate (Lopressor) 25 mg Q8HR G-TUBE Last administered on at 21:05; Start 01/15/16 at 22:00; Stop 01/26/16 at 10:13; Status DC Ranitidine HCl (Zantac Liq) 150 mg Q12HR G-TUBE Last administered on at 08:44; Start 01/15/16 at 21:00; Stop 02/14/16 at 12:36; Status DC Albuterol Sulfate (Albuterol Neb) 0.63 mg QID NEB NEB Last administered on at 11:36; Start 01/15/16 at 16:00; Stop 01/23/16 at 13:50; Status DC Morphine Sulfate (Morphine Inj) 8 mg STK-MED ONCE .ROUTE Last administered on at 16:41; Start 01/16/16 at 16:41; Stop 01/16/16 at 16:42; Status DC Fentanyl Citrate (Sublimaze Inj) 100 mcg STK-MED ONCE .ROUTE Last administered on 01/16/16at 16:59; Start 01/16/16 at 16:59; Stop 01/16/16 at 17:00; Status DC Midazolam HCl (Versed Inj) 2 mg STK-MED ONCE .ROUTE Last administered on at 16:59; Start 01/16/16 at 16:59; Stop 01/16/16 at 17:00; Status DC Iohexol (Omnipaque 350 Inj) 25 ml STK-MED ONCE G-TUBE Last administered on 01/15at 17:20; Start 01/16/16 at 17:20; Stop 01/16/16 at 17:36; Status DC Enoxaparin Sodium (Lovenox Inj) 40 mg Q24H SQ ; Start 01/17/16 at 22:00; Stop at 22:00; Status DC Sodium Biphosphate/ Sodium Phosphate (Fleets Enema (Adult)) 133 ml UNSCH PRN AR CONSTIPATION; Start 01/17/16 at 10:00 Enoxaparin Sodium (Lovenox Inj) 40 mg Q24H SQ Last administered on 03/07/16at 21:27; Start 01/17/16 at 22:00 Morphine Sulfate (Morphine Inj) 4 mg ONCE ONCE IV PUSH Last administered on at 00:38; Start 01/20/16 at 00:15; Stop 01/20/16 at 00:17; Status DC Morphine Sulfate 4 mg 4 mg Q3H PRN IV PUSH PAIN SCALE 7 TO 10 Last administered on 01/26/16at 06:07; Start 01/20/16 at 08:30; Stop 01/26/16 at 10:11; Status DC Levofloxacin/ Dextrose (Levaquin 750 Mg Premix Inj) 150 ml @ 100 mls/hr Q24H IV Last administered on 01/29/16at 12:08; Start 01/20/16 at 12:00; Stop 01/29/16 at 19:00; Status DC Morphine Sulfate (Morphine Inj) 2 mg Q4HR PRN IV PUSH BREAKTHROUGH PAIN Last administered on 01/27/16at 19:23; Start 01/26/16 at 12:00; Stop 01/30/16 at 08:13; Status DC Acetaminophen/ Hydrocodone Bitart (Hycet 325-7.5 Mg Liq) 10 ml Q6H PRN PO PAIN SCALE 6 TO 10 Last administered on 01/30/16at 01:03; Start 01/26/16 at 10:15; Stop 01/30/16 at 08:13; Status DC Metoprolol Tartrate (Lopressor) 12.5 mg Q12HR G-TUBE Last administered on at 09:30; Start 01/26/16 at 21:00; Stop 03/03/16 at 06:26; Status DC Promethazine HCl (Phenergan Inj) 12.5 mg Q4H PRN IM nausea Last administered on 03/07/16at 10:07; Start 01/27/16 at 20:15 Scopolamine (Transderm-Scop 1.5 Mg Patch.72 Hr) 1 patch Q3D TD Last administered on 02/08/16at 23:13; Start 01/27/16 at 21:00; Stop 02/11/16 at 08:07 ; Status DC Miscellaneous Information 1 Q3D TD Last administered on 02/08/16at 21:00; Start 01/30/16 at 21:00; Stop 02/11/16 at 08:07; Status DC Acetaminophen/ Hydrocodone Bitart (Hycet 325-7.5 Mg Liq) 5 ml Q6H PRN PO PAIN SCALE 6 TO 10 Last administered on 02/02/16at 12:50; Start 01/30/16 at 10:15; Stop 02/03/16 at 15:46; Status DC Fentanyl (Duragesic 25 Mcg Patch.72 Hr) 1 patch Q3D TD Last administered on 03/07/16at 08:29; Start 02/03/16 at 09:00 Miscellaneous Information 1 Q3D TD Last administered on 03/04/16at 11:00; Start 02/03/16 at 11:00 Metoprolol Tartrate 12.5 mg 12.5 mg ONCE ONCE PO Last administered on at 05:10; Start 02/01/16 at 04:45; Stop 02/01/16 at 04:51; Status DC Pharmacy Profile Note 0 ml @ 0 mls/hr UNSCH OTHER ; Start 02/01/16 at 07:45; Stop 02/04/16 at 16:02; Status DC Vancomycin HCl 1000 mg/Sodium Chloride 250 ml @ 250 mls/hr ONCE ONCE IV Last administered on 02/01/16at 08:25; Start 02/01/16 at 08:00; Stop 02/01/16 at 08:59; Status DC Piperacillin Sod/ Tazobactam Sod 100 ml @ 200 mls/hr Q6H IV Last administered on 02/06/16at 09:43; Start 02/01/16 at 09:00; Stop 02/06/16 at 14:49; Status DC Sodium Chloride 1,000 ml @ 100 mls/hr Q10H IV ; Start 02/01/16 at 07:45; Stop at 09:16; Status DC Sodium Chloride 1,000 ml @ 999 mls/hr BOLUS ONCE IV Last administered on at 08:24; Start 02/01/16 at 07:45; Stop 02/01/16 at 08:45; Status DC Sodium Chloride (NS 1000 ml Inj) 1,000 ml @ 75 mls/hr [id number] IV Last administered on 02/04/16at 05:21; Start 02/01/16 at 09:15; Stop 02/04/16 at 09:04 ; Status DC Miscellaneous Information SPECIFIC LAB TO BE DRAWN:VANCO TROUGH DATE... ONCE ONCE XX Last administered on 02/03/16at 14:32; Start 02/03/16 at 13:45; Stop at 13:46; Status DC Diatrizoate Meglum/ Diatrizoate Sod ( Gastroview Liq) 18 ml ONCE ONCE PO Last administered on 02/01/16at 12:06; Start 02/01/16 at 12:00; Stop 02/01/16 at 12: 01; Status DC Albuterol/ Ipratropium 1 ampule 1 ampule Q6HR WHILE AWAKE NEB NEB Last administered on 02/05/16at 19:56; Start 02/01/16 at 20:00; Stop 02/05/16 at 20:00 ; Status DC Sodium Chloride (NS 1000 ml Inj) 1,000 ml @ 999 mls/hr BOLUS ONCE IV Last administered on 02/01/16at 16:10; Start 02/01/16 at 16:30; Stop 02/01/16 at 17:30; Status DC Iohexol (Omnipaque 350 Inj) 70 ml STK-MED ONCE IV Last administered on at 16:38; Start 02/01/16 at 16:38; Stop 02/01/16 at 16:39; Status DC Miscellaneous Information Patient in critical care unit? Ass... [id number] Last administered on 02/01/16at 18:15; Start 02/01/16 at 18:15 Chlorhexidine Gluconate (Chlorhexidine 2% Cloth) 3 pack DAILY@04 TOP Last administered on 02/04/16at 03:53; Start 02/02/16 at 04:00; Stop 02/06/16 at 04:01 ; Status DC Chlorhexidine Gluconate 3 pack 3 pack UNSCH PRN TOP HYGIENIC CARE; Start at 18:15; Stop 02/06/16 at 18:04; Status DC Sodium Chloride 1,000 ml @ 999 mls/hr BOLUS ONCE IV Last administered on at 19:30; Start 02/01/16 at 19:30; Stop 02/01/16 at 20:30; Status DC Sodium Chloride 1,000 ml @ 999 mls/hr BOLUS ONCE IV Last administered on at 20:29; Start 02/01/16 at 20:30; Stop 02/01/16 at 21:30; Status DC Vancomycin HCl 1000 mg/Sodium Chloride 250 ml @ 250 mls/hr Q18H IV Last administered on 02/03/16at 14:32; Start 02/02/16 at 02:00; Stop 02/03/16 at 17:31; Status DC Sodium Chloride 1,000 ml @ 999 mls/hr BOLUS ONCE IV Last administered on at 00:39; Start 02/02/16 at 00:30; Stop 02/02/16 at 01:30; Status DC Sodium Chloride 1,000 ml @ 999 mls/hr BOLUS ONCE IV Last administered on at 08:11; Start 02/02/16 at 08:00; Stop 02/02/16 at 09:00; Status DC Potassium Chloride/Sodium Chloride (NS + KCl 20 Meq Inj) 1,000 ml @ 125 mls/hr Q8H ONCE IV Last administered on 02/02/16at 23:52; Start 02/02/16 at 23:45; Stop 02/03/16 at 07:44; Status DC Acetaminophen/ Hydrocodone Bitart (Hycet 325-7.5 Mg Liq) 15 ml Q6H PRN PO PAIN SCALE 6 TO 10 Last administered on 03/07/16at 21:27; Start 02/03/16 at 16:15 Furosemide 20 mg 20 mg ONCE ONCE IV PUSH Last administered on 02/03/16at 17:16; Start 02/03/16 at 17:15; Stop 02/03/16 at 17:16; Status DC Vancomycin HCl/ Sodium Chloride (Vancomycin Inj/ NS 250 ml Inj) 275 ml @ 275 mls/hr Q18H IV Last administered on 02/04/16at 03:53; Start 02/04/16 at 04:00; Stop 02/04/16 at 15:19; Status DC Miscellaneous Information SPECIFIC LAB TO BE SHARON... ONCE ONCE XX ; Start at 09:45; Stop 02/06/16 at 09:46; Status Cancel Potassium Chloride (KCl 20 Meq Premix Inj) 100 ml @ 50 mls/hr Q2H IV Last administered on 02/04/16at 11:00; Start 02/04/16 at 09:00; Stop 02/04/16 at 12:59 ; Status DC Potassium Chloride (KCl) 20 meq ONCE ONCE PO Last administered on 02/04/16at 08 :46; Start 02/04/16 at 08:30; Stop 02/04/16 at 08:51; Status DC Potassium Chloride (KCl 40 Meq/30 ml Liq) 20 meq ONCE ONCE G-TUBE Last administered on 02/04/16at 10:00; Start 02/04/16 at 09:00; Stop 02/04/16 at 09:01 ; Status DC Furosemide 20 mg 20 mg ONCE ONCE IV PUSH Last administered on 02/04/16at 10:05 ; Start 02/04/16 at 09:00; Stop 02/04/16 at 09:01; Status DC Magnesium Sulfate/ Dextrose (Magnesium Sulfate 1 Gm Premix) 100 ml @ 100 mls/ hr ONCE ONCE IV Last administered on 02/04/16at 09:08; Start 02/04/16 at 09:00 ; Stop 02/04/16 at 09:59; Status DC Escitalopram Oxalate 20 mg 20 mg HS PO Last administered on 02/12/16at 21:34; Start 02/04/16 at 21:00; Stop 02/14/16 at 17:16; Status DC Potassium Chloride 100 ml @ 50 mls/hr Q2H IV Last administered on 02/05/16at 11 :00; Start 02/05/16 at 09:00; Stop 02/05/16 at 12:59; Status DC Magnesium Sulfate/ Dextrose (Magnesium Sulfate 1 Gm Premix) 100 ml @ 100 mls/ hr ONCE ONCE IV Last administered on 02/05/16at 08:00; Start 02/05/16 at 08:00 ; Stop 02/05/16 at 08:59; Status DC Alprazolam (Xanax) 0.25 mg Q6H PRN PO agitation; Start 02/05/16 at 09:45; Stop 02/05/16 at 09:53; Status DC Furosemide (Lasix) 20 mg DAILY PO Last administered on 02/09/16at 10:07; Start 02/06/16 at 09:00; Stop 02/10/16 at 08:59; Status DC Alprazolam 0.5 mg 0.5 mg Q8HR G-TUBE Last administered on 02/14/16at 13:51; Start 02/05/16 at 14:00; Stop 02/14/16 at 17:15; Status DC Potassium Chloride (KCl 20 Meq Premix Inj) 100 ml @ 50 mls/hr Q2H IV Last administered on 02/06/16at 18:36; Start 02/06/16 at 16:00; Stop 02/06/16 at 19:59 ; Status DC Potassium Bicarb/ Potassium Chloride (K-Lyte Cl Eff) 50 meq ONCE ONCE PO Last administered on 02/06/16at 15:51; Start 02/06/16 at 15:30; Stop 02/06/16 at 15:31; Status DC Levofloxacin (Levaquin) 750 mg DAILY PO Last administered on 02/10/16at 09:00; Start 02/07/16 at 09:00; Stop 02/11/16 at 08:59; Status DC Sennosides (Senna Liq) 8.8 mg Q12HR PRN GT CONSTIPATION; Start 02/09/16 at 09: 00 Pantoprazole Sodium (Protonix) 40 mg DAILY PO Last administered on 02/15/16at 11 :44; Start 02/14/16 at 13:00; Stop 02/15/16 at 12:58; Status DC Ondansetron HCl (Zofran Odt) 4 mg ONCE ONCE PO Last administered on at 13:51; Start 02/14/16 at 12:45; Stop 02/14/16 at 12:46; Status DC Furosemide (Lasix Inj) 40 mg ONCE ONCE IV PUSH Last administered on 02/14/16at 17:17; Start 02/14/16 at 16:45; Stop 02/14/16 at 16:46; Status DC Alprazolam 0.25 mg 0.25 mg Q8H PRN G-TUBE anxiety Last administered on at 17:57; Start 02/14/16 at 17:15 Levofloxacin/ Dextrose 150 ml @ 100 mls/hr Q24H IV Last administered on at 21:00; Start 02/14/16 at 21:00; Stop 02/15/16 at 08:43; Status DC Piperacillin Sod/ Tazobactam Sod (Zosyn 4.5 Gm Premix) 100 ml @ 200 mls/hr Q6H IV Last administered on 02/15/16at 11:43; Start 02/15/16 at 11:00; Stop at 12:47; Status DC Ondansetron HCl 4 mg 4 mg TID PO Last administered on 03/08/16at 09:53; Start 02/15/16 at 13:00 Ceftriaxone Sodium/Sodium Chloride (Rocephin Inj/NS Inj) 100 ml @ 200 mls/hr Q24H IV Last administered on 02/24/16at 13:42; Start 02/15/16 at 13:00; Stop at 17:00; Status DC Pantoprazole Sodium (Protonix) 40 mg BID PO Last administered on 02/22/16at 21: 32; Start 02/15/16 at 21:00; Stop 02/23/16 at 16:36; Status DC Docusate Sodium (Colace) 100 mg BID PO ; Start 02/15/16 at 13:00; Stop 02/15/16 at 15:33; Status DC Sennosides (Senokot) 17.2 mg DAILY PO Last administered on 03/08/16at 09:54; Start 02/15/16 at 13:00 Lactulose (Lactulose Liq) 30 ml ONCE ONCE PO Last administered on 02/15/16at 13 :57; Start 02/15/16 at 13:00; Stop 02/15/16 at 13:01; Status DC Sodium Polystyrene Sulfonate (Kayexalate Liq) 30 gm ONCE ONCE GT Last administered on 02/15/16at 16:14; Start 02/15/16 at 15:45; Stop 02/15/16 at 15:46 ; Status DC Docusate Sodium 100 mg 100 mg Q12HR PO ; Start 02/15/16 at 21:00; Status UNV Dextrose/Sodium Chloride (D5W-NS 1000 ml Inj) 1,000 ml @ 75 mls/hr [id number] IV Last administered on 02/16/16at 05:10; Start 02/15/16 at 15:45; Stop 02/16/16 at 13:42; Status DC Docusate Sodium (Colace) 100 mg Q12HR PO Last administered on 03/06/16at 21:12 ; Start 02/15/16 at 21:00; Stop 03/07/16 at 14:46; Status DC Hydromorphone HCl (Dilaudid Pf Inj) 0.2 mg ONCE ONCE IV PUSH Last administered on 02/18/16at 03:14; Start 02/18/16 at 02:45; Stop 02/18/16 at 02:46 ; Status DC Hydromorphone HCl (Dilaudid Pf Inj) 0.2 mg Q4H PRN IV PUSH BREAKTHROUGH PAIN Last administered on 03/06/16at 06:00; Start 02/18/16 at 13:15; Stop 03/06/16 at 09:46; Status DC Influenza Virus Vaccine (Flu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
[2016-03-08] MEDS ORDERED: AMOXICILLIN/CLAVULANATE K 875 MG TAB PO SCH (12:45)
[2016-03-08] MEDS: AMOXICILLIN/CLAVULANATE K 875 MG TAB PEG SCH ×2 (14:30→21:54)
[2016-03-08] MEDS: ACETAMINOPHEN 325MG/HYDROcodone 7.5MG/15ML UDC PO PRN ×2 (14:30→21:53)
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
[2016-03-08] MEDS: ENOXAPARIN SODIUM 40 MG/0.4 ML SYRINGE SQ SCH (21:54)
[2016-03-09] VITALS (8 sets, daily range): BP systolic 112–151; BP diastolic 65–77; PULSE 73–86; RESP 16–20; TEMP 96.8–98; O2SAT 93–98
[2016-03-09] MEDS: TEMAZEPAM 15 MG CAP PO PRN (00:33)
[2016-03-09] MEDS: ACETAMINOPHEN 325MG/HYDROcodone 7.5MG/15ML UDC PO PRN ×2 (05:56→16:28)
[2016-03-09] MEDS: SENNOSIDES 8.6 MG TAB PO SCH (09:00)
[2016-03-09] MEDS: ONDANSETRON ODT 4 MG TAB PO SCH ×2 (09:00→13:00)
[2016-03-09] MEDS: HYDROmorphone HCL PF 1 MG/ML VIAL IV PUSH PRN ×2 (09:43→21:43)
[2016-03-09] MEDS: METOCLOPRAMIDE HCL SYRUP 10 MG/10 ML UDC G-TUBE SCH ×2 (09:47→21:39)
[2016-03-09] MEDS: LANSOPRAZOLE SOLUTAB 30 MG TAB NG SCH ×2 (09:47→21:40)
[2016-03-09] MEDS: AMOXICILLIN/CLAVULANATE K 875 MG TAB PEG SCH ×2 (09:48→21:40)
[2016-03-09] MEDS: SODIUM CHLORIDE 0.9% FLUSH 5 ML FLUSH IVF SCH ×2 (09:48→21:41)
[2016-03-09] MEDS: levETIRAcetam 500 MG/5 ML UDC TUBE SCH ×2 (09:48→21:39)
--- NOTE | 2016-03-09 11:25 | HHI.PR ---
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 PUSH Last administered on at 16:18; Start 12/13/15 at 16:00; Stop 12/13/15 at 16:01; Status DC Glucagon (Glucagon Inj) 1 mg STK-MED ONCE .ROUTE Last administered on at 14:15; Start 12/14/15 at 14:12; Stop 12/14/15 at 14:13; Status DC Metoclopramide HCl (Reglan Inj) 10 mg STK-MED ONCE .ROUTE Last administered on 12/14/15at 14:28; Start 12/14/15 at 14:28; Stop 12/14/15 at 14:29; Status DC Midazolam HCl (Versed Inj) 10 mg ONCE ONCE IV PUSH Last administered on at 15:19; Start 12/14/15 at 14:45; Stop 12/14/15 at 14:51; Status DC Vecuronium [place] (Norcuron 10 Mg Inj) 10 mg ONCE ONCE IV PUSH Last administered on 12/14/15at 15:19; Start 12/14/15 at 14:45; Stop 12/14/15 at 14:51 ; Status DC Fentanyl Citrate (Sublimaze Inj) 250 mcg ONCE ONCE IV PUSH Last administered on 12/14/15at 15:20; Start 12/14/15 at 14:45; Stop 12/14/15 at 14:51; Status DC Iohexol (Omnipaque 350 Inj) 80 ml STK-MED ONCE G-TUBE Last administered on 12/13at 15:00; Start 12/14/15 at 14:55; Stop 12/14/15 at 14:56; Status DC Albuterol/ Ipratropium (Duoneb Neb) 1 ampule Q6HR NEB NEB Last administered on 12/28/15at 08:04; Start 12/15/15 at 10:00; Stop 12/28/15 at 13:16; Status DC Diatrizoate Meglum/ Diatrizoate Sod ( Gastroview Liq) 18 ml ONCE ONCE PO Last administered on 12/15/15at 11:54; Start 12/15/15 at 11:15; Stop 12/15/15 at 11:16; Status DC Rocuronium [place] (Zemuron Inj) 50 mg BOLUS ONCE IV ; Start 12/15/15 at 14:30 ; Stop 12/15/15 at 14:31; Status DC Iohexol (Omnipaque 350 Inj) 96 ml STK-MED ONCE IV Last administered on at 14:56; Start 12/15/15 at 14:56; Stop 12/15/15 at 14:57; Status DC Midazolam HCl (Versed Inj) 5 mg STK-MED ONCE .ROUTE ; Start 12/16/15 at 08:41; Stop 12/16/15 at 08:42; Status DC Midazolam HCl (Versed Inj) 5 mg ONCE STAT IV Last administered on 12/16/15at 09 :30; Start 12/16/15 at 09:30; Stop 12/16/15 at 09:31; Status DC Miscellaneous Information SPECIFIC LAB TO BE SHARON... ONCE ONCE XX ; Start at 08:45; Stop 12/19/15 at 08:45; Status DC Midazolam HCl (Versed Inj) 2 mg Q2H PRN IV PUSH agitation Last administered on 12/20/15at 22:29; Start 12/17/15 at 21:15; Stop 12/21/15 at 13:16; Status DC Metoclopramide HCl (Reglan Inj) 10 mg Q8HR IV PUSH Last administered on at 12:51; Start 12/18/15 at 14:00; Stop 12/24/15 at 12:46; Status DC Lactulose 30 ml 30 ml Q12H PO ; Start 12/18/15 at 13:00; Stop 12/19/15 at 10:06 ; Status DC Potassium Phosphate/Sodium Chloride (Potassium Phosphate Inj/NS 250 ml Inj) 260 ml @ 43.333 mls/ hr ONCE ONCE IV Last administered on 12/19/15at 10:25; Start 12/19/15 at 10:00; Stop 12/19/15 at 15:59; Status DC Pantoprazole Sodium (Protonix Inj) 40 mg Q24H IV PUSH Last administered on 12/22at 12:51; Start 12/19/15 at 12:00; Stop 12/24/15 at 11:37; Status DC Metoprolol Tartrate (Lopressor Inj) 5 mg Q4HR IV PUSH Last administered on 12/20at 12:36; Start 12/19/15 at 12:00; Stop 12/21/15 at 12:49; Status DC Fentanyl (Duragesic 50 Mcg Patch.72 Hr) 1 patch Q3D TD Last administered on 01/31/16at 08:16; Start 12/20/15 at 09:00; Stop 02/03/16 at 08:45; Status DC Miscellaneous Information 1 Q3D TD Last administered on 01/31/16at 08:16; Start 12/23/15 at 09:00; Stop 01/31/16 at 10:57; Status DC Acetaminophen/ Hydrocodone Bitart ([place] 5-325 Mg) 1 tab Q6H PRN PO PAIN SCALE 1 TO 5; Start 12/20/15 at 09:00; Stop 12/21/15 at 13:45; Status DC Acetaminophen/ Hydrocodone Bitart ([place] 5-325 Mg) 2 tab Q6H PRN PO PAIN SCALE 6 TO 10; Start 12/20/15 at 09:00; Stop 12/21/15 at 13:45; Status DC Morphine Sulfate (Morphine Inj) 2 mg Q2HR PRN IV PUSH PAIN SCALE 8 TO 10 Last administered on 12/24/15at 14:44; Start 12/20/15 at 09:00; Stop 12/25/15 at 13:18 ; Status DC Morphine Sulfate (Morphine Inj) 4 mg Q4HR PRN IV PUSH PAIN SCALE 6 TO 10 Last administered on 12/20/15at 22:32; Start 12/20/15 at 09:00; Stop 12/21/15 at 13:45 ; Status DC Enoxaparin Sodium (Lovenox Inj) 30 mg Q12H SQ Last administered on 01/16/16at 22 :26; Start 12/20/15 at 10:00; Stop 01/17/16 at 09:48; Status DC Metoprolol Tartrate (Lopressor Inj) 5 mg ONCE ONCE IV PUSH Last administered on 12/21/15at 13:22; Start 12/21/15 at 12:45; Stop 12/21/15 at 12:56; Status DC Metoprolol Tartrate (Lopressor Inj) 10 mg Q4HR IV PUSH Last administered on at 09:28; Start 12/21/15 at 16:00; Stop 12/24/15 at 11:35; Status DC Olanzapine 5 mg 5 mg Q8H PRN PO AGITATION AND/OR HALLUCINATION Last administered on 12/31/15at 12:37; Start 12/21/15 at 13:00; Stop 01/14/16 at 13:04 ; Status DC Potassium Chloride 100 ml @ 50 mls/hr Q2H PRN IV For Potassium 2.8 - 3.2 mEq/L ; Start 12/21/15 at 13:00; Stop 01/13/16 at 21:27; Status DC Potassium Chloride (KCl 20 Meq Premix Inj) 100 ml @ 50 mls/hr Q2H PRN IV For Potassium 2.8 - 3.2 mEq/L; Start 12/21/15 at 13:00; Stop 01/13/16 at 21:27; Status DC Potassium Chloride 40 meq 40 meq UNSCH PRN PO/TUBE For Potassium 3.3 - 3.5 mEq/ L Last administered on 12/21/15at 15:19; Start 12/21/15 at 13:00; Stop 01/13/16 at 21:27; Status DC Potassium Chloride 100 ml @ 25 mls/hr UNSCH PRN IV For Potassium 3.3 - 3.5 mEq /L; Start 12/21/15 at 13:00; Stop 01/13/16 at 21:27; Status DC Potassium Chloride 100 ml @ 50 mls/hr Q2H PRN IV For Potassium 3.3 - 3.5 mEq/L ; Start 12/21/15 at 13:00; Stop 01/13/16 at 21:27; Status DC Magnesium Sulfate/ Sodium Chloride (Magnesium Sulfate Inj/NS Inj) 100 ml @ 50 mls/hr UNSCH PRN IV For Magnesium 0.9 - 1.1 mg/dL; Start 12/21/15 at 13:00; Stop 01/13/16 at 21:27; Status DC Magnesium Oxide 800 mg 800 mg UNSCH PRN PO For Magnesium 1.2 - 1.6 mg/dL; Start 12/21/15 at 13:00; Stop 01/13/16 at 21:27; Status DC Magnesium Sulfate/ Sodium Chloride (Magnesium Sulfate Inj/NS Inj) 100 ml @ 50 mls/hr UNSCH PRN IV For Magnesium 1.2 - 1.6 mg/dL; Start 12/21/15 at 13:00; Stop 01/13/16 at 21:27; Status DC Potassium Phosphate 2000 mg 2,000 mg Q4H PRN PO For Phosphorus < 2.5 mg/dL; Start 12/21/15 at 13:00; Stop 01/13/16 at 21:27; Status DC Sodium Phosphate/ Sodium Chloride (Sodium Phosphate Inj/NS 250 ml Inj) 250 ml @ 42 mls/hr UNSCH PRN IV For Phosphorus < 2.5 mg/dL Last administered on at 11:18; Start 12/21/15 at 13:00; Stop 01/13/16 at 21:27; Status DC Potassium Chloride (KCl 40 Meq/30 ml Liq) 40 meq UNSCH PRN PO/TUBE SEE LABEL COMMENTS; Start 12/21/15 at 13:00; Stop 01/13/16 at 21:27; Status DC Potassium Phosphate 2000 mg 2,000 mg UNSCH PRN PO/TUBE SEE LABEL COMMENTS; Start 12/21/15 at 13:00; Stop 01/13/16 at 21:27; Status DC Potassium Phosphate/Sodium Chloride (Potassium Phosphate Inj/NS 250 ml Inj) 260 ml @ 42 mls/hr UNSCH PRN IV SEE LABEL COMMENTS; Start 12/21/15 at 13:00; Stop 01/13/16 at 21:27; Status DC Oxycodone HCl (Roxicodone Intensol Liq) 5 mg Q4H PRN PO PAIN SCALE 4 TO 7 Last administered on 01/13/16at 11:08; Start 12/21/15 at 13:45; Stop 01/14/16 at 13:04 ; Status DC Labetalol HCl (Trandate Inj) 20 mg Q1H PRN IV PUSH SBP>170, DBP>90, HR>65 Last administered on 12/27/15at 10:22; Start 12/21/15 at 14:30; Stop 01/13/16 at 21:27 ; Status DC Levetriacetam (Keppra Liq) 500 mg Q12HR TUBE Last administered on 03/09/16at 09:48; Start 12/22/15 at 21:00 Acetaminophen (Tylenol 650 Mg/ 20 ml Liq) 650 mg Q6H PRN J-TUBE PAIN SCALE 1 TO 5, T > 101 Last administered on 02/21/16at 06:23; Start 12/22/15 at 11:00 Labetalol HCl (Trandate Inj) 40 mg NOW ONCE IVP ; Start 12/23/15 at 12:00; Stop 12/23/15 at 12:01; Status DC Acetaminophen 650 mg 650 mg NOW ONCE J-TUBE ; Start 12/23/15 at 13:45; Stop at 13:46; Status DC Vancomycin HCl 1250 mg/Sodium Chloride 275 ml @ 250 mls/hr ONCE ONCE IV Last administered on 12/23/15at 17:14; Start 12/23/15 at 16:00; Stop 12/23/15 at 17:05 ; Status DC Piperacillin Sod/ Tazobactam Sod (Zosyn 3.375 Gm Premix) 50 ml @ 100 mls/hr Q8H IV Last administered on 01/05/16at 15:51; Start 12/23/15 at 16:00; Stop 04/11 at 18:15; Status DC Metoprolol Tartrate (Lopressor) 25 mg Q8HR TUBE Last administered on 01/15/16at 13:14; Start 12/24/15 at 14:00; Stop 01/15/16 at 15:23; Status DC Pantoprazole Sodium (Protonix Inj) 40 mg Q24H IV PUSH Last administered on 12/23at 12:21; Start 12/24/15 at 12:00; Stop 12/24/15 at 13:00; Status DC Ranitidine HCl (Zantac Liq) 150 mg Q12HR TUBE Last administered on 01/15/16at 10:14; Start 12/25/15 at 09:00; Stop 01/15/16 at 15:24; Status DC Metoclopramide HCl (Reglan Liq) 10 mg Q12HR G-TUBE Last administered on at 09:47; Start 12/24/15 at 21:00 Alprazolam (Xanax) 0.25 mg Q8HR PO Last administered on 01/13/16at 13:47; Start 12/25/15 at 14:00; Stop 01/14/16 at 13:04; Status DC Sennosides (Senna Liq) 8.8 mg ONCE ONCE PO Last administered on 12/25/15at 12: 03; Start 12/25/15 at 12:00; Stop 12/25/15 at 12:01; Status DC Sennosides (Senna Liq) 8.8 mg Q12HR PO Last administered on 01/13/16at 11:06; Start 12/25/15 at 21:00; Stop 01/14/16 at 13:04; Status DC Morphine Sulfate (Morphine Inj) 4 mg Q3H PRN IV PUSH PAIN SCALE 8 TO 10 Last administered on 01/17/16at 02:36; Start 12/25/15 at 13:15; Stop 01/17/16 at 09:45 ; Status DC Methylprednisolone Sodium Succinate (SoluMEDROL INJ) 40 mg Q8HR IV PUSH Last administered on 12/27/15at 05:50; Start 12/25/15 at 22:00; Stop 12/27/15 at 07:00; Status DC Midazolam HCl (Versed Inj) 10 mg ONCE ONCE IV Last administered on 12/26/15at 11 :22; Start 12/26/15 at 10:30; Stop 12/26/15 at 10:41; Status DC Fentanyl Citrate (Sublimaze Inj) 250 mcg ONCE ONCE IV PUSH Last administered on 12/26/15at 11:22; Start 12/26/15 at 10:30; Stop 12/26/15 at 10:41; Status DC Rocuronium [place] (Zemuron Inj) 100 mg BOLUS ONCE IV Last administered on 12/25at 11:21; Start 12/26/15 at 10:30; Stop 12/26/15 at 10:44; Status DC Acetylcysteine (Mucomyst 20% Neb) 2 ml Q8HR NEB NEB Last administered on at 07:34; Start 12/27/15 at 00:00; Stop 12/31/15 at 00:00; Status DC Propofol (Diprivan 200 Mg/20 ml Inj) 250 mg STK-MED ONCE IV PUSH ; Start at 13:23; Stop 12/30/15 at 13:46; Status DC Diatrizoate Meglum/ Diatrizoate Sod ( Gastroview Liq) 18 ml ONCE ONCE PO ; Start 12/30/15 at 16:00; Stop 12/30/15 at 16:01; Status Cancel Magnesium Hydroxide 30 ml 30 ml BID PRN PEG CONSTIPATION Last administered on at 09:42; Start 01/02/16 at 19:15; Stop 01/15/16 at 15:23; Status DC Dextrose/Sodium Chloride (D5W-1/2 NS 1000 ml Inj) 1,000 ml @ 60 mls/hr [id number] IV Last administered on 01/05/16at 17:08; Start 01/03/16 at 16:30; Stop 01/06/16 at 08:12; Status DC Ephedrine Sulfate (ePHEDrine/NS 50 MG/5 ML SYR) 50 mg STK-MED ONCE IV ; Start at 12:00; Stop 01/06/16 at 10:00; Status DC Phenylephrine HCl 1000 mcg 1,000 mcg STK-MED ONCE IV ; Start 12/30/15 at 12:00; Stop 01/06/16 at 10:00; Status DC Dextrose/Sodium Chloride (D5W-NS 1000 ml Inj) 1,000 ml @ 42 mls/hr [id number] IV Last administered on 01/13/16at 03:14; Start 01/06/16 at 11:00; Stop 01/15/16 at 14:53; Status DC Hyoscyamine Sulfate (Levsin Inj) 0.125 mg Q6H PRN IVP SECRETIONS Last administered on 01/16/16at 10:43; Start 01/10/16 at 21:45; Stop 01/17/16 at 09:49 ; Status DC Hyoscyamine Sulfate 0.125 mg 0.125 mg Q6H PRN SL SECRETIONS Last administered on 02/03/16at 17:17; Start 01/10/16 at 21:45; Stop 02/10/16 at 11:47; Status DC Levetriacetam (Keppra 500 Mg Premix Inj) 100 ml @ 400 mls/hr BOLUS ONCE IV Last administered on 01/13/16at 21:54; Start 01/13/16 at 22:00; Stop 01/13/16 at 22:14; Status DC Metoprolol Tartrate (Lopressor Inj) 5 mg ONCE ONCE IV PUSH Last administered on 01/13/16at 21:54; Start 01/13/16 at 22:00; Stop 01/13/16 at 22:01; Status DC Alprazolam (Xanax) 0.25 mg Q8HR G-TUBE Last administered on 02/05/16at 04:08; Start 01/14/16 at 14:00; Stop 02/05/16 at 09:53; Status DC Olanzapine (ZyPREXA ZYDIS ODT) 5 mg Q8H PRN .XX AGITATION AND/OR HALLUCINATION Last administered on 02/05/16 04:08; Start 01/14/16 at 21:00 Oxycodone HCl (Roxicodone Intensol Liq) 5 mg Q4H PRN G-TUBE PAIN SCALE 4 TO 7 Last administered on 01/23/16at 12:11; Start 01/14/16 at 13:45; Stop 01/26/16 at 10:13; Status DC Sennosides (Senna Liq) 8.8 mg Q12HR GT Last administered on 02/08/16at 10:57; Start 01/14/16 at 21:00; Stop 02/09/16 at 08:49; Status DC Lorazepam 1 mg 1 mg Q6H PRN IV PUSH SEIZURES Last administered on 01/18/16at 10: 51; Start 01/14/16 at 13:00; Stop 01/20/16 at 11:19; Status DC Potassium Chloride/Dextrose/ Sod Cl (D5-1/2 NS + KCl 20 Meq Inj) 1,000 ml @ 84 mls/hr [id number] IV Last administered on 01/16/16at 22:27; Start 01/15/16 at 15:00 ; Stop 01/17/16 at 09:45; Status DC Magnesium Hydroxide (Milk Of Magnesia Liq) 30 ml BID PRN G-TUBE CONSTIPATION Last administered on 03/06/16at 06:21; Start 01/15/16 at 15:30 Metoprolol Tartrate (Lopressor) 25 mg Q8HR G-TUBE Last administered on 21:05; Start 01/15/16 at 22:00; Stop 01/26/16 at 10:13; Status DC Ranitidine HCl (Zantac Liq) 150 mg Q12HR G-TUBE Last administered on at 08:44; Start 01/15/16 at 21:00; Stop 02/14/16 at 12:36; Status DC Albuterol Sulfate (Albuterol Neb) 0.63 mg QID NEB NEB Last administered on at 11:36; Start 01/15/16 at 16:00; Stop 01/23/16 at 13:50; Status DC Morphine Sulfate (Morphine Inj) 8 mg STK-MED ONCE .ROUTE Last administered on at 16:41; Start 01/16/16 at 16:41; Stop 01/16/16 at 16:42; Status DC Fentanyl Citrate (Sublimaze Inj) 100 mcg STK-MED ONCE .ROUTE Last administered on 01/16/16at 16:59; Start 01/16/16 at 16:59; Stop 01/16/16 at 17:00; Status DC Midazolam HCl (Versed Inj) 2 mg STK-MED ONCE .ROUTE Last administered on at 16:59; Start 01/16/16 at 16:59; Stop 01/16/16 at 17:00; Status DC Iohexol (Omnipaque 350 Inj) 25 ml STK-MED ONCE G-TUBE Last administered on 01/15at 17:20; Start 01/16/16 at 17:20; Stop 01/16/16 at 17:36; Status DC Enoxaparin Sodium (Lovenox Inj) 40 mg Q24H SQ ; Start 01/17/16 at 22:00; Stop at 22:00; Status DC Sodium Biphosphate/ Sodium Phosphate (Fleets Enema (Adult)) 133 ml UNSCH PRN ND CONSTIPATION; Start 01/17/16 at 10:00 Enoxaparin Sodium (Lovenox Inj) 40 mg Q24H SQ Last administered on 03/08/16at 21:54; Start 01/17/16 at 22:00 Morphine Sulfate (Morphine Inj) 4 mg ONCE ONCE IV PUSH Last administered on at 00:38; Start 01/20/16 at 00:15; Stop 01/20/16 at 00:17; Status DC Morphine Sulfate 4 mg 4 mg Q3H PRN IV PUSH PAIN SCALE 7 TO 10 Last administered on 01/26/16at 06:07; Start 01/20/16 at 08:30; Stop 01/26/16 at 10:11; Status DC Levofloxacin/ Dextrose (Levaquin 750 Mg Premix Inj) 150 ml @ 100 mls/hr Q24H IV Last administered on 01/29/16at 12:08; Start 01/20/16 at 12:00; Stop 01/29/16 at 19:00; Status DC Morphine Sulfate (Morphine Inj) 2 mg Q4HR PRN IV PUSH BREAKTHROUGH PAIN Last administered on 01/27/16at 19:23; Start 01/26/16 at 12:00; Stop 01/30/16 at 08:13; Status DC Acetaminophen/ Hydrocodone Bitart ([place] 325-7.5 Mg Liq) 10 ml Q6H PRN PO PAIN SCALE 6 TO 10 Last administered on 01/30/16at 01:03; Start 01/26/16 at 10:15; Stop 01/30/16 at 08:13; Status DC Metoprolol Tartrate (Lopressor) 12.5 mg Q12HR G-TUBE Last administered on at 09:30; Start 01/26/16 at 21:00; Stop 03/03/16 at 06:26; Status DC Promethazine HCl (Phenergan Inj) 12.5 mg Q4H PRN IM nausea Last administered on 03/07/16at 10:07; Start 01/27/16 at 20:15 Scopolamine (Transderm-Scop 1.5 Mg Patch.72 Hr) 1 patch Q3D TD Last administered on 02/08/16at 23:13; Start 01/27/16 at 21:00; Stop 02/11/16 at 08:07 ; Status DC Miscellaneous Information 1 Q3D TD Last administered on 02/08/16at 21:00; Start 01/30/16 at 21:00; Stop 02/11/16 at 08:07; Status DC Acetaminophen/ Hydrocodone Bitart (Hy[place] 325-7.5 Mg Liq) 5 ml Q6H PRN PO PAIN SCALE 6 TO 10 Last administered on 02/02/16at 12:50; Start 01/30/16 at 10:15; Stop 02/03/16 at 15:46; Status DC Fentanyl (Duragesic 25 Mcg Patch.72 Hr) 1 patch Q3D TD Last administered on 03/07/16at 08:29; Start 02/03/16 at 09:00 Miscellaneous Information 1 Q3D TD Last administered on 03/04/16at 11:00; Start 02/03/16 at 11:00 Metoprolol Tartrate 12.5 mg 12.5 mg ONCE ONCE PO Last administered on at 05:10; Start 02/01/16 at 04:45; Stop 02/01/16 at 04:51; Status DC Pharmacy Profile Note 0 ml @ 0 mls/hr UNSCH OTHER ; Start 02/01/16 at 07:45; Stop 02/04/16 at 16:02; Status DC Vancomycin HCl 1000 mg/Sodium Chloride 250 ml @ 250 mls/hr ONCE ONCE IV Last administered on 02/01/16at 08:25; Start 02/01/16 at 08:00; Stop 02/01/16 at 08:59; Status DC Piperacillin Sod/ Tazobactam Sod 100 ml @ 200 mls/hr Q6H IV Last administered on 02/06/16at 09:43; Start 02/01/16 at 09:00; Stop 02/06/16 at 14:49; Status DC Sodium Chloride 1,000 ml @ 100 mls/hr Q10H IV ; Start 02/01/16 at 07:45; Stop at 09:16; Status DC Sodium Chloride 1,000 ml @ 999 mls/hr BOLUS ONCE IV Last administered on at 08:24; Start 02/01/16 at 07:45; Stop 02/01/16 at 08:45; Status DC Sodium Chloride (NS 1000 ml Inj) 1,000 ml @ 75 mls/hr [id number] IV Last administered on 02/04/16at 05:21; Start 02/01/16 at 09:15; Stop 02/04/16 at 09:04 ; Status DC Miscellaneous Information SPECIFIC LAB TO BE DRAWN:[facility]ANCO TROUGH DATE... ONCE ONCE XX Last administered on 02/03/16at 14:32; Start 02/03/16 at 13:45; Stop at 13:46; Status DC Diatrizoate Meglum/ Diatrizoate Sod ( Gastroview Liq) 18 ml ONCE ONCE PO Last administered on 02/01/16at 12:06; Start 02/01/16 at 12:00; Stop 02/01/16 at 12: 01; Status DC Albuterol/ Ipratropium 1 ampule 1 ampule Q6HR WHILE AWAKE NEB NEB Last administered on 02/05/16at 19:56; Start 02/01/16 at 20:00; Stop 02/05/16 at 20:00 ; Status DC Sodium Chloride (NS 1000 ml Inj) 1,000 ml @ 999 mls/hr BOLUS ONCE IV Last administered on 02/01/16at 16:10; Start 02/01/16 at 16:30; Stop 02/01/16 at 17:30; Status DC Iohexol (Omnipaque 350 Inj) 70 ml STK-MED ONCE IV Last administered on at 16:38; Start 02/01/16 at 16:38; Stop 02/01/16 at 16:39; Status DC Miscellaneous Information Patient in critical care unit? Ass... [id number] Last administered on 02/01/16at 18:15; Start 02/01/16 at 18:15 Chlorhexidine Gluconate (Chlorhexidine 2% Cloth) 3 pack DAILY@04 TOP Last administered on 02/04/16at 03:53; Start 02/02/16 at 04:00; Stop 02/06/16 at 04:01 ; Status DC Chlorhexidine Gluconate 3 pack 3 pack UNSCH PRN TOP HYGIENIC CARE; Start at 18:15; Stop 02/06/16 at 18:04; Status DC Sodium Chloride 1,000 ml @ 999 mls/hr BOLUS ONCE IV Last administered on at 19:30; Start 02/01/16 at 19:30; Stop 02/01/16 at 20:30; Status DC Sodium Chloride 1,000 ml @ 999 mls/hr BOLUS ONCE IV Last administered on at 20:29; Start 02/01/16 at 20:30; Stop 02/01/16 at 21:30; Status DC Vancomycin HCl 1000 mg/Sodium Chloride 250 ml @ 250 mls/hr Q18H IV Last administered on 02/03/16at 14:32; Start 02/02/16 at 02:00; Stop 02/03/16 at 17:31; Status DC Sodium Chloride 1,000 ml @ 999 mls/hr BOLUS ONCE IV Last administered on at 00:39; Start 02/02/16 at 00:30; Stop 02/02/16 at 01:30; Status DC Sodium Chloride 1,000 ml @ 999 mls/hr BOLUS ONCE IV Last administered on at 08:11; Start 02/02/16 at 08:00; Stop 02/02/16 at 09:00; Status DC Potassium Chloride/Sodium Chloride (NS + KCl 20 Meq Inj) 1,000 ml @ 125 mls/hr Q8H ONCE IV Last administered on 02/02/16at 23:52; Start 02/02/16 at 23:45; Stop 02/03/16 at 07:44; Status DC Acetaminophen/ Hydrocodone Bitart (Hycet 325-7.5 Mg Liq) 15 ml Q6H PRN PO PAIN SCALE 6 TO 10 Last administered on 03/09/16at 05:56; Start 02/03/16 at 16:15 Furosemide 20 mg 20 mg ONCE ONCE IV PUSH Last administered on 02/03/16at 17:16; Start 02/03/16 at 17:15; Stop 02/03/16 at 17:16; Status DC Vancomycin HCl/ Sodium Chloride (Vancomycin Inj/ NS 250 ml Inj) 275 ml @ 275 mls/hr Q18H IV Last administered on 02/04/16at 03:53; Start 02/04/16 at 04:00; Stop 02/04/16 at 15:19; Status DC Miscellaneous Information SPECIFIC LAB TO BE SHARON... ONCE ONCE XX ; Start at 09:45; Stop 02/06/16 at 09:46; Status Cancel Potassium Chloride (KCl 20 Meq Premix Inj) 100 ml @ 50 mls/hr Q2H IV Last administered on 02/04/16at 11:00; Start 02/04/16 at 09:00; Stop 02/04/16 at 12:59 ; Status DC Potassium Chloride (KCl) 20 meq ONCE ONCE PO Last administered on 02/04/16at 08 :46; Start 02/04/16 at 08:30; Stop 02/04/16 at 08:51; Status DC Potassium Chloride (KCl 40 Meq/30 ml Liq) 20 meq ONCE ONCE G-TUBE Last administered on 02/04/16at 10:00; Start 02/04/16 at 09:00; Stop 02/04/16 at 09:01 ; Status DC Furosemide 20 mg 20 mg ONCE ONCE IV PUSH Last administered on 02/04/16at 10:05 ; Start 02/04/16 at 09:00; Stop 02/04/16 at 09:01; Status DC Magnesium Sulfate/ Dextrose (Magnesium Sulfate 1 Gm Premix) 100 ml @ 100 mls/ hr ONCE ONCE IV Last administered on 02/04/16at 09:08; Start 02/04/16 at 09:00 ; Stop 02/04/16 at 09:59; Status DC Escitalopram Oxalate 20 mg 20 mg HS PO Last administered on 02/12/16at 21:34; Start 02/04/16 at 21:00; Stop 02/14/16 at 17:16; Status DC Potassium Chloride 100 ml @ 50 mls/hr Q2H IV Last administered on 02/05/16at 11 :00; Start 02/05/16 at 09:00; Stop 02/05/16 at 12:59; Status DC Magnesium Sulfate/ Dextrose (Magnesium Sulfate 1 Gm Premix) 100 ml @ 100 mls/ hr ONCE ONCE IV Last administered on 02/05/16at 08:00; Start 02/05/16 at 08:00 ; Stop 02/05/16 at 08:59; Status DC Alprazolam (Xanax) 0.25 mg Q6H PRN PO agitation; Start 02/05/16 at 09:45; Stop 02/05/16 at 09:53; Status DC Furosemide (Lasix) 20 mg DAILY PO Last administered on 02/09/16at 10:07; Start 02/06/16 at 09:00; Stop 02/10/16 at 08:59; Status DC Alprazolam 0.5 mg 0.5 mg Q8HR G-TUBE Last administered on 02/14/16at 13:51; Start 02/05/16 at 14:00; Stop 02/14/16 at 17:15; Status DC Potassium Chloride (KCl 20 Meq Premix Inj) 100 ml @ 50 mls/hr Q2H IV Last administered on 02/06/16at 18:36; Start 02/06/16 at 16:00; Stop 02/06/16 at 19:59 ; Status DC Potassium Bicarb/ Potassium Chloride (K-Lyte Cl Eff) 50 meq ONCE ONCE PO Last administered on 02/06/16at 15:51; Start 02/06/16 at 15:30; Stop 02/06/16 at 15:31; Status DC Levofloxacin (Levaquin) 750 mg DAILY PO Last administered on 02/10/16at 09:00; Start 02/07/16 at 09:00; Stop 02/11/16 at 08:59; Status DC Sennosides (Senna Liq) 8.8 mg Q12HR PRN GT CONSTIPATION; Start 02/09/16 at 09: 00 Pantoprazole Sodium (Protonix) 40 mg DAILY PO Last administered on 02/15/16at 11 :44; Start 02/14/16 at 13:00; Stop 02/15/16 at 12:58; Status DC Ondansetron HCl (Zofran Odt) 4 mg ONCE ONCE PO Last administered on at 13:51; Start 02/14/16 at 12:45; Stop 02/14/16 at 12:46; Status DC Furosemide (Lasix Inj) 40 mg ONCE ONCE IV PUSH Last administered on 02/14/16at 17:17; Start 02/14/16 at 16:45; Stop 02/14/16 at 16:46; Status DC Alprazolam 0.25 mg 0.25 mg Q8H PRN G-TUBE anxiety Last administered on at 17:57; Start 02/14/16 at 17:15 Levofloxacin/ Dextrose 150 ml @ 100 mls/hr Q24H IV Last administered on at 21:00; Start 02/14/16 at 21:00; Stop 02/15/16 at 08:43; Status DC Piperacillin Sod/ Tazobactam Sod (Zosyn 4.5 Gm Premix) 100 ml @ 200 mls/hr Q6H IV Last administered on 02/15/16at 11:43; Start 02/15/16 at 11:00; Stop at 12:47; Status DC Ondansetron HCl 4 mg 4 mg TID PO Last administered on 03/08/16at 09:53; Start 02/15/16 at 13:00 Ceftriaxone Sodium/Sodium Chloride (Rocephin Inj/NS Inj) 100 ml @ 200 mls/hr Q24H IV Last administered on 02/24/16at 13:42; Start 02/15/16 at 13:00; Stop at 17:00; Status DC Pantoprazole Sodium (Protonix) 40 mg BID PO Last administered on 02/22/16at 21: 32; Start 02/15/16 at 21:00; Stop 02/23/16 at 16:36; Status DC Docusate Sodium (Colace) 100 mg BID PO ; Start 02/15/16 at 13:00; Stop 02/15/16 at 15:33; Status DC Sennosides (Senokot) 17.2 mg DAILY PO Last administered on 03/08/16at 09:54; Start 02/15/16 at 13:00 Lactulose (Lactulose Liq) 30 ml ONCE ONCE PO Last administered on 02/15/16at 13 :57; Start 02/15/16 at 13:00; Stop 02/15/16 at 13:01; Status DC Sodium Polystyrene Sulfonate (Kayexalate Liq) 30 gm ONCE ONCE GT Last administered on 02/15/16at 16:14; Start 02/15/16 at 15:45; Stop 02/15/16 at 15:46 ; Status DC Docusate Sodium 100 mg 100 mg Q12HR PO ; Start 02/15/16 at 21:00; Status UNV Dextrose/Sodium Chloride (D5W-NS 1000 ml Inj) 1,000 ml @ 75 mls/hr [id number] IV Last administered on 02/16/16at 05:10; Start 02/15/16 at 15:45; Stop 02/16/16 at 13:42; Status DC Docusate Sodium (Colace) 100 mg Q12HR PO Last administered on 03/06/16at 21:12 ; Start 02/15/16 at 21:00; Stop 03/07/16 at 14:46; Status DC Hydromorphone HCl (Dilaudid Pf Inj) 0.2 mg ONCE ONCE IV PUSH Last administered on 02/18/16at 03:14; Start 02/18/16 at 02:45; Stop 02/18/16 at 02:46 ; Status DC Hydromorphone HCl (Dilaudid Pf Inj) 0.2 mg Q4H PRN IV PUSH BREAKTHROUGH PAIN Last administered on 03/06/16at 06:00; Start 02/18/16 at 13:15; Stop 03/06/16 at 09:46; Status DC Influenza Virus Vaccine (Flu (Quadrivalent) Vaccine Inj) 0.5 ml ONCE ONCE IM Last administered on 02/21/16at

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
[2016-03-09] MEDS: ENOXAPARIN SODIUM 40 MG/0.4 ML SYRINGE SQ SCH (21:39)
[2016-03-10] VITALS (9 sets, daily range): BP systolic 101–138; BP diastolic 62–82; PULSE 73–93; RESP 16–20; TEMP 96.7–98.3; O2SAT 96–99
[2016-03-10] MEDS: TEMAZEPAM 15 MG CAP PO PRN ×2 (01:12→23:34)
[2016-03-10] MEDS: ACETAMINOPHEN 325MG/HYDROcodone 7.5MG/15ML UDC PO PRN ×3 (01:12→17:46)
--- NOTE | 2016-03-10 08:22 | HHI.PR ---
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 Flumazenil (Romazicon Inj) 0.4 mg ONCE ONCE IV PUSH Last administered on at 16:18; Start 12/13/15 at 16:00; Stop 12/13/15 at 16:01; Status DC Glucagon (Glucagon Inj) 1 mg STK-MED ONCE .ROUTE Last administered on at 14:15; Start 12/14/15 at 14:12; Stop 12/14/15 at 14:13; Status DC Metoclopramide HCl (Reglan Inj) 10 mg STK-MED ONCE .ROUTE Last administered on 12/14/15at 14:28; Start 12/14/15 at 14:28; Stop 12/14/15 at 14:29; Status DC Midazolam HCl (Versed Inj) 10 mg ONCE ONCE IV PUSH Last administered on at 15:19; Start 12/14/15 at 14:45; Stop 12/14/15 at 14:51; Status DC Vecuronium [place] (Norcuron 10 Mg Inj) 10 mg ONCE ONCE IV PUSH Last administered on 12/14/15at 15:19; Start 12/14/15 at 14:45; Stop 12/14/15 at 14:51 ; Status DC Fentanyl Citrate (Sublimaze Inj) 250 mcg ONCE ONCE IV PUSH Last administered on 12/14/15at 15:20; Start 12/14/15 at 14:45; Stop 12/14/15 at 14:51; Status DC Iohexol (Omnipaque 350 Inj) 80 ml STK-MED ONCE G-TUBE Last administered on 12/13at 15:00; Start 12/14/15 at 14:55; Stop 12/14/15 at 14:56; Status DC Albuterol/ Ipratropium (Duoneb Neb) 1 ampule Q6HR NEB NEB Last administered on 12/28/15at 08:04; Start 12/15/15 at 10:00; Stop 12/28/15 at 13:16; Status DC Diatrizoate Meglum/ Diatrizoate Sod ( Gastroview Liq) 18 ml ONCE ONCE PO Last administered on 12/15/15at 11:54; Start 12/15/15 at 11:15; Stop 12/15/15 at 11:16; Status DC Rocuronium [place] (Zemuron Inj) 50 mg BOLUS ONCE IV ; Start 12/15/15 at 14:30 ; Stop 12/15/15 at 14:31; Status DC Iohexol (Omnipaque 350 Inj) 96 ml STK-MED ONCE IV Last administered on at 14:56; Start 12/15/15 at 14:56; Stop 12/15/15 at 14:57; Status DC Midazolam HCl (Versed Inj) 5 mg STK-MED ONCE .ROUTE ; Start 12/16/15 at 08:41; Stop 12/16/15 at 08:42; Status DC Midazolam HCl (Versed Inj) 5 mg ONCE STAT IV Last administered on 12/16/15at 09 :30; Start 12/16/15 at 09:30; Stop 12/16/15 at 09:31; Status DC Miscellaneous Information SPECIFIC LAB TO BE SHARON... ONCE ONCE XX ; Start at 08:45; Stop 12/19/15 at 08:45; Status DC Midazolam HCl (Versed Inj) 2 mg Q2H PRN IV PUSH agitation Last administered on 12/20/15at 22:29; Start 12/17/15 at 21:15; Stop 12/21/15 at 13:16; Status DC Metoclopramide HCl (Reglan Inj) 10 mg Q8HR IV PUSH Last administered on at 12:51; Start 12/18/15 at 14:00; Stop 12/24/15 at 12:46; Status DC Lactulose 30 ml 30 ml Q12H PO ; Start 12/18/15 at 13:00; Stop 12/19/15 at 10:06 ; Status DC Potassium Phosphate/Sodium Chloride (Potassium Phosphate Inj/NS 250 ml Inj) 260 ml @ 43.333 mls/ hr ONCE ONCE IV Last administered on 12/19/15at 10:25; Start 12/19/15 at 10:00; Stop 12/19/15 at 15:59; Status DC Pantoprazole Sodium (Protonix Inj) 40 mg Q24H IV PUSH Last administered on 12/22at 12:51; Start 12/19/15 at 12:00; Stop 12/24/15 at 11:37; Status DC Metoprolol Tartrate (Lopressor Inj) 5 mg Q4HR IV PUSH Last administered on 12/20at 12:36; Start 12/19/15 at 12:00; Stop 12/21/15 at 12:49; Status DC Fentanyl (Duragesic 50 Mcg Patch.72 Hr) 1 patch Q3D TD Last administered on 01/31/16at 08:16; Start 12/20/15 at 09:00; Stop 02/03/16 at 08:45; Status DC Miscellaneous Information 1 Q3D TD Last administered on 01/31/16at 08:16; Start 12/23/15 at 09:00; Stop 01/31/16 at 10:57; Status DC Acetaminophen/ Hydrocodone Bitart ([place] 5-325 Mg) 1 tab Q6H PRN PO PAIN SCALE 1 TO 5; Start 12/20/15 at 09:00; Stop 12/21/15 at 13:45; Status DC Acetaminophen/ Hydrocodone Bitart ([place] 5-325 Mg) 2 tab Q6H PRN PO PAIN SCALE 6 TO 10; Start 12/20/15 at 09:00; Stop 12/21/15 at 13:45; Status DC Morphine Sulfate (Morphine Inj) 2 mg Q2HR PRN IV PUSH PAIN SCALE 8 TO 10 Last administered on 12/24/15at 14:44; Start 12/20/15 at 09:00; Stop 12/25/15 at 13:18 ; Status DC Morphine Sulfate (Morphine Inj) 4 mg Q4HR PRN IV PUSH PAIN SCALE 6 TO 10 Last administered on 12/20/15at 22:32; Start 12/20/15 at 09:00; Stop 12/21/15 at 13:45 ; Status DC Enoxaparin Sodium (Lovenox Inj) 30 mg Q12H SQ Last administered on 01/16/16at 22 :26; Start 12/20/15 at 10:00; Stop 01/17/16 at 09:48; Status DC Metoprolol Tartrate (Lopressor Inj) 5 mg ONCE ONCE IV PUSH Last administered on 12/21/15at 13:22; Start 12/21/15 at 12:45; Stop 12/21/15 at 12:56; Status DC Metoprolol Tartrate (Lopressor Inj) 10 mg Q4HR IV PUSH Last administered on at 09:28; Start 12/21/15 at 16:00; Stop 12/24/15 at 11:35; Status DC Olanzapine 5 mg 5 mg Q8H PRN PO AGITATION AND/OR HALLUCINATION Last administered on 12/31/15at 12:37; Start 12/21/15 at 13:00; Stop 01/14/16 at 13:04 ; Status DC Potassium Chloride 100 ml @ 50 mls/hr Q2H PRN IV For Potassium 2.8 - 3.2 mEq/L ; Start 12/21/15 at 13:00; Stop 01/13/16 at 21:27; Status DC Potassium Chloride (KCl 20 Meq Premix Inj) 100 ml @ 50 mls/hr Q2H PRN IV For Potassium 2.8 - 3.2 mEq/L; Start 12/21/15 at 13:00; Stop 01/13/16 at 21:27; Status DC Potassium Chloride 40 meq 40 meq UNSCH PRN PO/TUBE For Potassium 3.3 - 3.5 mEq/ L Last administered on 12/21/15at 15:19; Start 12/21/15 at 13:00; Stop 01/13/16 at 21:27; Status DC Potassium Chloride 100 ml @ 25 mls/hr UNSCH PRN IV For Potassium 3.3 - 3.5 mEq /L; Start 12/21/15 at 13:00; Stop 01/13/16 at 21:27; Status DC Potassium Chloride 100 ml @ 50 mls/hr Q2H PRN IV For Potassium 3.3 - 3.5 mEq/L ; Start 12/21/15 at 13:00; Stop 01/13/16 at 21:27; Status DC Magnesium Sulfate/ Sodium Chloride (Magnesium Sulfate Inj/NS Inj) 100 ml @ 50 mls/hr UNSCH PRN IV For Magnesium 0.9 - 1.1 mg/dL; Start 12/21/15 at 13:00; Stop 01/13/16 at 21:27; Status DC Magnesium Oxide 800 mg 800 mg UNSCH PRN PO For Magnesium 1.2 - 1.6 mg/dL; Start 12/21/15 at 13:00; Stop 01/13/16 at 21:27; Status DC Magnesium Sulfate/ Sodium Chloride (Magnesium Sulfate Inj/NS Inj) 100 ml @ 50 mls/hr UNSCH PRN IV For Magnesium 1.2 - 1.6 mg/dL; Start 12/21/15 at 13:00; Stop 01/13/16 at 21:27; Status DC Potassium Phosphate 2000 mg 2,000 mg Q4H PRN PO For Phosphorus < 2.5 mg/dL; Start 12/21/15 at 13:00; Stop 01/13/16 at 21:27; Status DC Sodium Phosphate/ Sodium Chloride (Sodium Phosphate Inj/NS 250 ml Inj) 250 ml @ 42 mls/hr UNSCH PRN IV For Phosphorus < 2.5 mg/dL Last administered on at 11:18; Start 12/21/15 at 13:00; Stop 01/13/16 at 21:27; Status DC Potassium Chloride (KCl 40 Meq/30 ml Liq) 40 meq UNSCH PRN PO/TUBE SEE LABEL COMMENTS; Start 12/21/15 at 13:00; Stop 01/13/16 at 21:27; Status DC Potassium Phosphate 2000 mg 2,000 mg UNSCH PRN PO/TUBE SEE LABEL COMMENTS; Start 12/21/15 at 13:00; Stop 01/13/16 at 21:27; Status DC Potassium Phosphate/Sodium Chloride (Potassium Phosphate Inj/NS 250 ml Inj) 260 ml @ 42 mls/hr UNSCH PRN IV SEE LABEL COMMENTS; Start 12/21/15 at 13:00; Stop 01/13/16 at 21:27; Status DC Oxycodone HCl (Roxicodone Intensol Liq) 5 mg Q4H PRN PO PAIN SCALE 4 TO 7 Last administered on 01/13/16at 11:08; Start 12/21/15 at 13:45; Stop 01/14/16 at 13:04 ; Status DC Labetalol HCl (Trandate Inj) 20 mg Q1H PRN IV PUSH SBP>170, DBP>90, HR>65 Last administered on 12/27/15at 10:22; Start 12/21/15 at 14:30; Stop 01/13/16 at 21:27 ; Status DC Levetriacetam (Keppra Liq) 500 mg Q12HR TUBE Last administered on 03/09/16at 21:39; Start 12/22/15 at 21:00 Acetaminophen (Tylenol 650 Mg/ 20 ml Liq) 650 mg Q6H PRN J-TUBE PAIN SCALE 1 TO 5, T > 101 Last administered on 02/21/16at 06:23; Start 12/22/15 at 11:00 Labetalol HCl (Trandate Inj) 40 mg NOW ONCE IVP ; Start 12/23/15 at 12:00; Stop 12/23/15 at 12:01; Status DC Acetaminophen 650 mg 650 mg NOW ONCE J-TUBE ; Start 12/23/15 at 13:45; Stop at 13:46; Status DC Vancomycin HCl 1250 mg/Sodium Chloride 275 ml @ 250 mls/hr ONCE ONCE IV Last administered on 12/23/15at 17:14; Start 12/23/15 at 16:00; Stop 12/23/15 at 17:05 ; Status DC Piperacillin Sod/ Tazobactam Sod (Zosyn 3.375 Gm Premix) 50 ml @ 100 mls/hr Q8H IV Last administered on 01/05/16at 15:51; Start 12/23/15 at 16:00; Stop 04/11 at 18:15; Status DC Metoprolol Tartrate (Lopressor) 25 mg Q8HR TUBE Last administered on 01/15/16at 13:14; Start 12/24/15 at 14:00; Stop 01/15/16 at 15:23; Status DC Pantoprazole Sodium (Protonix Inj) 40 mg Q24H IV PUSH Last administered on 12/23at 12:21; Start 12/24/15 at 12:00; Stop 12/24/15 at 13:00; Status DC Ranitidine HCl (Zantac Liq) 150 mg Q12HR TUBE Last administered on 01/15/16at 10:14; Start 12/25/15 at 09:00; Stop 01/15/16 at 15:24; Status DC Metoclopramide HCl (Reglan Liq) 10 mg Q12HR G-TUBE Last administered on at 21:39; Start 12/24/15 at 21:00 Alprazolam (Xanax) 0.25 mg Q8HR PO Last administered on 01/13/16at 13:47; Start 12/25/15 at 14:00; Stop 01/14/16 at 13:04; Status DC Sennosides (Senna Liq) 8.8 mg ONCE ONCE PO Last administered on 12/25/15at 12: 03; Start 12/25/15 at 12:00; Stop 12/25/15 at 12:01; Status DC Sennosides (Senna Liq) 8.8 mg Q12HR PO Last administered on 01/13/16at 11:06; Start 12/25/15 at 21:00; Stop 01/14/16 at 13:04; Status DC Morphine Sulfate (Morphine Inj) 4 mg Q3H PRN IV PUSH PAIN SCALE 8 TO 10 Last administered on 01/17/16at 02:36; Start 12/25/15 at 13:15; Stop 01/17/16 at 09:45 ; Status DC Methylprednisolone Sodium Succinate (SoluMEDROL INJ) 40 mg Q8HR IV PUSH Last administered on 12/27/15at 05:50; Start 12/25/15 at 22:00; Stop 12/27/15 at 07:00; Status DC Midazolam HCl (Versed Inj) 10 mg ONCE ONCE IV Last administered on 12/26/15at 11 :22; Start 12/26/15 at 10:30; Stop 12/26/15 at 10:41; Status DC Fentanyl Citrate (Sublimaze Inj) 250 mcg ONCE ONCE IV PUSH Last administered on 12/26/15at 11:22; Start 12/26/15 at 10:30; Stop 12/26/15 at 10:41; Status DC Rocuronium [place] (Zemuron Inj) 100 mg BOLUS ONCE IV Last administered on 12/25at 11:21; Start 12/26/15 at 10:30; Stop 12/26/15 at 10:44; Status DC Acetylcysteine (Mucomyst 20% Neb) 2 ml Q8HR NEB NEB Last administered on at 07:34; Start 12/27/15 at 00:00; Stop 12/31/15 at 00:00; Status DC Propofol (Diprivan 200 Mg/20 ml Inj) 250 mg STK-MED ONCE IV PUSH ; Start at 13:23; Stop 12/30/15 at 13:46; Status DC Diatrizoate Meglum/ Diatrizoate Sod ( Gastroview Liq) 18 ml ONCE ONCE PO ; Start 12/30/15 at 16:00; Stop 12/30/15 at 16:01; Status Cancel Magnesium Hydroxide 30 ml 30 ml BID PRN PEG CONSTIPATION Last administered on at 09:42; Start 01/02/16 at 19:15; Stop 01/15/16 at 15:23; Status DC Dextrose/Sodium Chloride (D5W-1/2 NS 1000 ml Inj) 1,000 ml @ 60 mls/hr [id number] IV Last administered on 01/05/16at 17:08; Start 01/03/16 at 16:30; Stop 01/06/16 at 08:12; Status DC Ephedrine Sulfate (ePHEDrine/NS 50 MG/5 ML SYR) 50 mg STK-MED ONCE IV ; Start at 12:00; Stop 01/06/16 at 10:00; Status DC Phenylephrine HCl 1000 mcg 1,000 mcg STK-MED ONCE IV ; Start 12/30/15 at 12:00; Stop 01/06/16 at 10:00; Status DC Dextrose/Sodium Chloride (D5W-NS 1000 ml Inj) 1,000 ml @ 42 mls/hr [id number] IV Last administered on 01/13/16at 03:14; Start 01/06/16 at 11:00; Stop 01/15/16 at 14:53; Status DC Hyoscyamine Sulfate (Levsin Inj) 0.125 mg Q6H PRN IVP SECRETIONS Last administered on 01/16/16at 10:43; Start 01/10/16 at 21:45; Stop 01/17/16 at 09:49 ; Status DC Hyoscyamine Sulfate 0.125 mg 0.125 mg Q6H PRN SL SECRETIONS Last administered on 02/03/16at 17:17; Start 01/10/16 at 21:45; Stop 02/10/16 at 11:47; Status DC Levetriacetam (Keppra 500 Mg Premix Inj) 100 ml @ 400 mls/hr BOLUS ONCE IV Last administered on 01/13/16at 21:54; Start 01/13/16 at 22:00; Stop 01/13/16 at 22:14; Status DC Metoprolol Tartrate (Lopressor Inj) 5 mg ONCE ONCE IV PUSH Last administered on 01/13/16at 21:54; Start 01/13/16 at 22:00; Stop 01/13/16 at 22:01; Status DC Alprazolam (Xanax) 0.25 mg Q8HR G-TUBE Last administered on 02/05/16at 04:08; Start 01/14/16 at 14:00; Stop 02/05/16 at 09:53; Status DC Olanzapine (ZyPREXA ZYDIS ODT) 5 mg Q8H PRN .XX AGITATION AND/OR HALLUCINATION Last administered on 02/05/16 04:08; Start 01/14/16 at 21:00 Oxycodone HCl (Roxicodone Intensol Liq) 5 mg Q4H PRN G-TUBE PAIN SCALE 4 TO 7 Last administered on 01/23/16 12:11; Start 01/14/16 at 13:45; Stop 01/26/16 at 10:13; Status DC Sennosides (Senna Liq) 8.8 mg Q12HR GT Last administered on 02/08/16at 10:57; Start 01/14/16 at 21:00; Stop 02/09/16 at 08:49; Status DC Lorazepam 1 mg 1 mg Q6H PRN IV PUSH SEIZURES Last administered on 01/18/16at 10: 51; Start 01/14/16 at 13:00; Stop 01/20/16 at 11:19; Status DC Potassium Chloride/Dextrose/ Sod Cl (D5-1/2 NS + KCl 20 Meq Inj) 1,000 ml @ 84 mls/hr [id number] IV Last administered on 01/16/16at 22:27; Start 01/15/16 at 15:00 ; Stop 01/17/16 at 09:45; Status DC Magnesium Hydroxide (Milk Of Magnesia Liq) 30 ml BID PRN G-TUBE CONSTIPATION Last administered on 03/06/16at 06:21; Start 01/15/16 at 15:30 Metoprolol Tartrate (Lopressor) 25 mg Q8HR G-TUBE Last administered on 21:05; Start 01/15/16 at 22:00; Stop 01/26/16 at 10:13; Status DC Ranitidine HCl (Zantac Liq) 150 mg Q12HR G-TUBE Last administered on at 08:44; Start 01/15/16 at 21:00; Stop 02/14/16 at 12:36; Status DC Albuterol Sulfate (Albuterol Neb) 0.63 mg QID NEB NEB Last administered on at 11:36; Start 01/15/16 at 16:00; Stop 01/23/16 at 13:50; Status DC Morphine Sulfate (Morphine Inj) 8 mg STK-MED ONCE .ROUTE Last administered on at 16:41; Start 01/16/16 at 16:41; Stop 01/16/16 at 16:42; Status DC Fentanyl Citrate (Sublimaze Inj) 100 mcg STK-MED ONCE .ROUTE Last administered on 01/16/16 16:59; Start 01/16/16 at 16:59; Stop 01/16/16 at 17:00; Status DC Midazolam HCl (Versed Inj) 2 mg STK-MED ONCE .ROUTE Last administered on 16:59; Start 01/16/16 at 16:59; Stop 01/16/16 at 17:00; Status DC Iohexol (Omnipaque 350 Inj) 25 ml STK-MED ONCE G-TUBE Last administered on 01/15at 17:20; Start 01/16/16 at 17:20; Stop 01/16/16 at 17:36; Status DC Enoxaparin Sodium (Lovenox Inj) 40 mg Q24H SQ ; Start 01/17/16 at 22:00; Stop at 22:00; Status DC Sodium Biphosphate/ Sodium Phosphate (Fleets Enema (Adult)) 133 ml UNSCH PRN HI CONSTIPATION; Start 01/17/16 at 10:00 Enoxaparin Sodium (Lovenox Inj) 40 mg Q24H SQ Last administered on 03/09/16at 21:39; Start 01/17/16 at 22:00 Morphine Sulfate (Morphine Inj) 4 mg ONCE ONCE IV PUSH Last administered on at 00:38; Start 01/20/16 at 00:15; Stop 01/20/16 at 00:17; Status DC Morphine Sulfate 4 mg 4 mg Q3H PRN IV PUSH PAIN SCALE 7 TO 10 Last administered on 01/26/16 06:07; Start 01/20/16 at 08:30; Stop 01/26/16 at 10:11; Status DC Levofloxacin/ Dextrose (Levaquin 750 Mg Premix Inj) 150 ml @ 100 mls/hr Q24H IV Last administered on 01/29/16at 12:08; Start 01/20/16 at 12:00; Stop 01/29/16 at 19:00; Status DC Morphine Sulfate (Morphine Inj) 2 mg Q4HR PRN IV PUSH BREAKTHROUGH PAIN Last administered on 01/27/16at 19:23; Start 01/26/16 at 12:00; Stop 01/30/16 at 08:13; Status DC Acetaminophen/ Hydrocodone Bitart (Hycet 325-7.5 Mg Liq) 10 ml Q6H PRN PO PAIN SCALE 6 TO 10 Last administered on 01/30/16at 01:03; Start 01/26/16 at 10:15; Stop 01/30/16 at 08:13; Status DC Metoprolol Tartrate (Lopressor) 12.5 mg Q12HR G-TUBE Last administered on at 09:30; Start 01/26/16 at 21:00; Stop 03/03/16 at 06:26; Status DC Promethazine HCl (Phenergan Inj) 12.5 mg Q4H PRN IM nausea Last administered on 03/07/16at 10:07; Start 01/27/16 at 20:15 Scopolamine (Transderm-Scop 1.5 Mg Patch.72 Hr) 1 patch Q3D TD Last administered on 02/08/16at 23:13; Start 01/27/16 at 21:00; Stop 02/11/16 at 08:07 ; Status DC Miscellaneous Information 1 Q3D TD Last administered on 02/08/16at 21:00; Start 01/30/16 at 21:00; Stop 02/11/16 at 08:07; Status DC Acetaminophen/ Hydrocodone Bitart (Hycet 325-7.5 Mg Liq) 5 ml Q6H PRN PO PAIN SCALE 6 TO 10 Last administered on 02/02/16at 12:50; Start 01/30/16 at 10:15; Stop 02/03/16 at 15:46; Status DC Fentanyl (Duragesic 25 Mcg Patch.72 Hr) 1 patch Q3D TD Last administered on 03/07/16at 08:29; Start 02/03/16 at 09:00 Miscellaneous Information 1 Q3D TD Last administered on 03/04/16at 11:00; Start 02/03/16 at 11:00 Metoprolol Tartrate 12.5 mg 12.5 mg ONCE ONCE PO Last administered on at 05:10; Start 02/01/16 at 04:45; Stop 02/01/16 at 04:51; Status DC Pharmacy Profile Note 0 ml @ 0 mls/hr UNSCH OTHER ; Start 02/01/16 at 07:45; Stop 02/04/16 at 16:02; Status DC Vancomycin HCl 1000 mg/Sodium Chloride 250 ml @ 250 mls/hr ONCE ONCE IV Last administered on 02/01/16at 08:25; Start 02/01/16 at 08:00; Stop 02/01/16 at 08:59; Status DC Piperacillin Sod/ Tazobactam Sod 100 ml @ 200 mls/hr Q6H IV Last administered on 02/06/16at 09:43; Start 02/01/16 at 09:00; Stop 02/06/16 at 14:49; Status DC Sodium Chloride 1,000 ml @ 100 mls/hr Q10H IV ; Start 02/01/16 at 07:45; Stop at 09:16; Status DC Sodium Chloride 1,000 ml @ 999 mls/hr BOLUS ONCE IV Last administered on at 08:24; Start 02/01/16 at 07:45; Stop 02/01/16 at 08:45; Status DC Sodium Chloride (NS 1000 ml Inj) 1,000 ml @ 75 mls/hr [id number] IV Last administered on 02/04/16at 05:21; Start 02/01/16 at 09:15; Stop 02/04/16 at 09:04 ; Status DC Miscellaneous Information SPECIFIC LAB TO BE DRAWN:[facility]ANCO TROUGH DATE... ONCE ONCE XX Last administered on 02/03/16at 14:32; Start 02/03/16 at 13:45; Stop at 13:46; Status DC Diatrizoate Meglum/ Diatrizoate Sod ( Gastroview Liq) 18 ml ONCE ONCE PO Last administered on 02/01/16at 12:06; Start 02/01/16 at 12:00; Stop 02/01/16 at 12: 01; Status DC Albuterol/ Ipratropium 1 ampule 1 ampule Q6HR WHILE AWAKE NEB NEB Last administered on 02/05/16at 19:56; Start 02/01/16 at 20:00; Stop 02/05/16 at 20:00 ; Status DC Sodium Chloride (NS 1000 ml Inj) 1,000 ml @ 999 mls/hr BOLUS ONCE IV Last administered on 02/01/16 16:10; Start 02/01/16 at 16:30; Stop 02/01/16 at 17:30; Status DC Iohexol (Omnipaque 350 Inj) 70 ml STK-MED ONCE IV Last administered on at 16:38; Start 02/01/16 at 16:38; Stop 02/01/16 at 16:39; Status DC Miscellaneous Information Patient in critical care unit? Ass... [id number] Last administered on 02/01/16at 18:15; Start 02/01/16 at 18:15 Chlorhexidine Gluconate (Chlorhexidine 2% Cloth) 3 pack DAILY@04 TOP Last administered on 02/04/16at 03:53; Start 02/02/16 at 04:00; Stop 02/06/16 at 04:01 ; Status DC Chlorhexidine Gluconate 3 pack 3 pack UNSCH PRN TOP HYGIENIC CARE; Start at 18:15; Stop 02/06/16 at 18:04; Status DC Sodium Chloride 1,000 ml @ 999 mls/hr BOLUS ONCE IV Last administered on at 19:30; Start 02/01/16 at 19:30; Stop 02/01/16 at 20:30; Status DC Sodium Chloride 1,000 ml @ 999 mls/hr BOLUS ONCE IV Last administered on at 20:29; Start 02/01/16 at 20:30; Stop 02/01/16 at 21:30; Status DC Vancomycin HCl 1000 mg/Sodium Chloride 250 ml @ 250 mls/hr Q18H IV Last administered on 02/03/16at 14:32; Start 02/02/16 at 02:00; Stop 02/03/16 at 17:31; Status DC Sodium Chloride 1,000 ml @ 999 mls/hr BOLUS ONCE IV Last administered on at 00:39; Start 02/02/16 at 00:30; Stop 02/02/16 at 01:30; Status DC Sodium Chloride 1,000 ml @ 999 mls/hr BOLUS ONCE IV Last administered on at 08:11; Start 02/02/16 at 08:00; Stop 02/02/16 at 09:00; Status DC Potassium Chloride/Sodium Chloride (NS + KCl 20 Meq Inj) 1,000 ml @ 125 mls/hr Q8H ONCE IV Last administered on 02/02/16at 23:52; Start 02/02/16 at 23:45; Stop 02/03/16 at 07:44; Status DC Acetaminophen/ Hydrocodone Bitart (Hycet 325-7.5 Mg Liq) 15 ml Q6H PRN PO PAIN SCALE 6 TO 10 Last administered on 03/10/16at 01:12; Start 02/03/16 at 16:15 Furosemide 20 mg 20 mg ONCE ONCE IV PUSH Last administered on 02/03/16at 17:16; Start 02/03/16 at 17:15; Stop 02/03/16 at 17:16; Status DC Vancomycin HCl/ Sodium Chloride (Vancomycin Inj/ NS 250 ml Inj) 275 ml @ 275 mls/hr Q18H IV Last administered on 02/04/16at 03:53; Start 02/04/16 at 04:00; Stop 02/04/16 at 15:19; Status DC Miscellaneous Information SPECIFIC LAB TO BE SHARON... ONCE ONCE XX ; Start at 09:45; Stop 02/06/16 at 09:46; Status Cancel Potassium Chloride (KCl 20 Meq Premix Inj) 100 ml @ 50 mls/hr Q2H IV Last administered on 02/04/16at 11:00; Start 02/04/16 at 09:00; Stop 02/04/16 at 12:59 ; Status DC Potassium Chloride (KCl) 20 meq ONCE ONCE PO Last administered on 02/04/16at 08 :46; Start 02/04/16 at 08:30; Stop 02/04/16 at 08:51; Status DC Potassium Chloride (KCl 40 Meq/30 ml Liq) 20 meq ONCE ONCE G-TUBE Last administered on 02/04/16at 10:00; Start 02/04/16 at 09:00; Stop 02/04/16 at 09:01 ; Status DC Furosemide 20 mg 20 mg ONCE ONCE IV PUSH Last administered on 02/04/16at 10:05 ; Start 02/04/16 at 09:00; Stop 02/04/16 at 09:01; Status DC Magnesium Sulfate/ Dextrose (Magnesium Sulfate 1 Gm Premix) 100 ml @ 100 mls/ hr ONCE ONCE IV Last administered on 02/04/16at 09:08; Start 02/04/16 at 09:00 ; Stop 02/04/16 at 09:59; Status DC Escitalopram Oxalate 20 mg 20 mg HS PO Last administered on 02/12/16at 21:34; Start 02/04/16 at 21:00; Stop 02/14/16 at 17:16; Status DC Potassium Chloride 100 ml @ 50 mls/hr Q2H IV Last administered on 02/05/16at 11 :00; Start 02/05/16 at 09:00; Stop 02/05/16 at 12:59; Status DC Magnesium Sulfate/ Dextrose (Magnesium Sulfate 1 Gm Premix) 100 ml @ 100 mls/ hr ONCE ONCE IV Last administered on 02/05/16at 08:00; Start 02/05/16 at 08:00 ; Stop 02/05/16 at 08:59; Status DC Alprazolam (Xanax) 0.25 mg Q6H PRN PO agitation; Start 02/05/16 at 09:45; Stop 02/05/16 at 09:53; Status DC Furosemide (Lasix) 20 mg DAILY PO Last administered on 02/09/16at 10:07; Start 02/06/16 at 09:00; Stop 02/10/16 at 08:59; Status DC Alprazolam 0.5 mg 0.5 mg Q8HR G-TUBE Last administered on 02/14/16at 13:51; Start 02/05/16 at 14:00; Stop 02/14/16 at 17:15; Status DC Potassium Chloride (KCl 20 Meq Premix Inj) 100 ml @ 50 mls/hr Q2H IV Last administered on 02/06/16at 18:36; Start 02/06/16 at 16:00; Stop 02/06/16 at 19:59 ; Status DC Potassium Bicarb/ Potassium Chloride (K-Lyte Cl Eff) 50 meq ONCE ONCE PO Last administered on 02/06/16at 15:51; Start 02/06/16 at 15:30; Stop 02/06/16 at 15:31; Status DC Levofloxacin (Levaquin) 750 mg DAILY PO Last administered on 02/10/16at 09:00; Start 02/07/16 at 09:00; Stop 02/11/16 at 08:59; Status DC Sennosides (Senna Liq) 8.8 mg Q12HR PRN GT CONSTIPATION; Start 02/09/16 at 09: 00 Pantoprazole Sodium (Protonix) 40 mg DAILY PO Last administered on 02/15/16at 11 :44; Start 02/14/16 at 13:00; Stop 02/15/16 at 12:58; Status DC Ondansetron HCl (Zofran Odt) 4 mg ONCE ONCE PO Last administered on at 13:51; Start 02/14/16 at 12:45; Stop 02/14/16 at 12:46; Status DC Furosemide (Lasix Inj) 40 mg ONCE ONCE IV PUSH Last administered on 02/14/16at 17:17; Start 02/14/16 at 16:45; Stop 02/14/16 at 16:46; Status DC Alprazolam 0.25 mg 0.25 mg Q8H PRN G-TUBE anxiety Last administered on at 17:57; Start 02/14/16 at 17:15 Levofloxacin/ Dextrose 150 ml @ 100 mls/hr Q24H IV Last administered on at 21:00; Start 02/14/16 at 21:00; Stop 02/15/16 at 08:43; Status DC Piperacillin Sod/ Tazobactam Sod (Zosyn 4.5 Gm Premix) 100 ml @ 200 mls/hr Q6H IV Last administered on 02/15/16at 11:43; Start 02/15/16 at 11:00; Stop at 12:47; Status DC Ondansetron HCl 4 mg 4 mg TID PO Last administered on 03/08/16at 09:53; Start 02/15/16 at 13:00 Ceftriaxone Sodium/Sodium Chloride (Rocephin Inj/NS Inj) 100 ml @ 200 mls/hr Q24H IV Last administered on 02/24/16at 13:42; Start 02/15/16 at 13:00; Stop at 17:00; Status DC Pantoprazole Sodium (Protonix) 40 mg BID PO Last administered on 02/22/16at 21: 32; Start 02/15/16 at 21:00; Stop 02/23/16 at 16:36; Status DC Docusate Sodium (Colace) 100 mg BID PO ; Start 02/15/16 at 13:00; Stop 02/15/16 at 15:33; Status DC Sennosides (Senokot) 17.2 mg DAILY PO Last administered on 03/08/16at 09:54; Start 02/15/16 at 13:00 Lactulose (Lactulose Liq) 30 ml ONCE ONCE PO Last administered on 02/15/16at 13 :57; Start 02/15/16 at 13:00; Stop 02/15/16 at 13:01; Status DC Sodium Polystyrene Sulfonate (Kayexalate Liq) 30 gm ONCE ONCE GT Last administered on 02/15/16at 16:14; Start 02/15/16 at 15:45; Stop 02/15/16 at 15:46 ; Status DC Docusate Sodium 100 mg 100 mg Q12HR PO ; Start 02/15/16 at 21:00; Status UNV Dextrose/Sodium Chloride (D5W-NS 1000 ml Inj) 1,000 ml @ 75 mls/hr [id number] IV Last administered on 02/16/16at 05:10; Start 02/15/16 at 15:45; Stop 02/16/16 at 13:42; Status DC Docusate Sodium (Colace) 100 mg Q12HR PO Last administered on 03/06/16at 21:12 ; Start 02/15/16 at 21:00; Stop 03/07/16 at 14:46; Status DC Hydromorphone HCl (Dilaudid Pf Inj) 0.2 mg ONCE ONCE IV PUSH Last administered on 02/18/16at 03:14; Start 02/18/16 at 02:45; Stop 02/18/16 at 02:46 ; Status DC Hydromorphone HCl (Dilaudid Pf Inj) 0.2 mg Q4H PRN IV PUSH BREAKTHROUGH PAIN Last administered on 03/06/16at 06:00; Start 02/18/16 at 13:15; Stop 03/06/16 at 09:46; Status DC Influenza Virus Vaccine (Flu (Quadrivalent) Vaccine Inj) 0.5 ml ONCE ONCE IM Last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
[2016-03-10] MEDS: ONDANSETRON ODT 4 MG TAB PO SCH ×3 (09:00→17:40)
[2016-03-10] MEDS: SODIUM CHLORIDE 0.9% FLUSH 5 ML FLUSH IVF SCH ×2 (09:00→21:00)
[2016-03-10] MEDS: SENNOSIDES 8.6 MG TAB PO SCH (09:07)
[2016-03-10] MEDS: METOCLOPRAMIDE HCL SYRUP 10 MG/10 ML UDC G-TUBE SCH ×2 (09:07→21:16)
[2016-03-10] MEDS: levETIRAcetam 500 MG/5 ML UDC TUBE SCH ×2 (09:07→21:16)
[2016-03-10] MEDS: LANSOPRAZOLE SOLUTAB 30 MG TAB NG SCH ×2 (09:08→21:16)
[2016-03-10] MEDS: AMOXICILLIN/CLAVULANATE K 875 MG TAB PEG SCH ×2 (09:08→21:16)
[2016-03-10] MEDS: REMOVE OLD PATCH TD SCH (09:15)
[2016-03-10] MEDS: fentaNYL 25 MCG/HR PATCH TD SCH (09:15)
[2016-03-10] MEDS: ONDANSETRON HCL 4 MG/2 ML VIAL IV PRN (13:07)
[2016-03-10] MEDS: HYDROmorphone HCL PF 1 MG/ML VIAL IV PUSH PRN (21:17)
[2016-03-10] MEDS: ENOXAPARIN SODIUM 40 MG/0.4 ML SYRINGE SQ SCH (21:17)
[2016-03-11] VITALS (7 sets, daily range): BP systolic 101–121; BP diastolic 61–69; PULSE 73–93; RESP 18–20; TEMP 96.9–97.7; O2SAT 93–98
[2016-03-11] MEDS: LANSOPRAZOLE SOLUTAB 30 MG TAB NG SCH ×2 (08:30→21:00)
[2016-03-11] MEDS: AMOXICILLIN/CLAVULANATE K 875 MG TAB PEG SCH ×2 (08:30→21:00)
[2016-03-11] MEDS: levETIRAcetam 500 MG/5 ML UDC TUBE SCH ×2 (08:30→21:24)
[2016-03-11] MEDS: ONDANSETRON ODT 4 MG TAB PO SCH ×3 (08:30→17:39)
[2016-03-11] MEDS: SENNOSIDES 8.6 MG TAB PO SCH (08:30)
[2016-03-11] MEDS: METOCLOPRAMIDE HCL SYRUP 10 MG/10 ML UDC G-TUBE SCH ×2 (08:30→21:24)
[2016-03-11] MEDS: ACETAMINOPHEN 325MG/HYDROcodone 7.5MG/15ML UDC PO PRN (08:36)
--- NOTE | 2016-03-11 11:11 | HHI.PR ---
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 at 14:15; Start 12/14/15 at 14:12; Stop 12/14/15 at 14:13; Status DC Metoclopramide HCl (Reglan Inj) 10 mg STK-MED ONCE .ROUTE Last administered on 12/14/15at 14:28; Start 12/14/15 at 14:28; Stop 12/14/15 at 14:29; Status DC Midazolam HCl (Versed Inj) 10 mg ONCE ONCE IV PUSH Last administered on at 15:19; Start 12/14/15 at 14:45; Stop 12/14/15 at 14:51; Status DC Vecuronium [place] (Norcuron 10 Mg Inj) 10 mg ONCE ONCE IV PUSH Last administered on 12/14/15at 15:19; Start 12/14/15 at 14:45; Stop 12/14/15 at 14:51 ; Status DC Fentanyl Citrate (Sublimaze Inj) 250 mcg ONCE ONCE IV PUSH Last administered on 12/14/15at 15:20; Start 12/14/15 at 14:45; Stop 12/14/15 at 14:51; Status DC Iohexol (Omnipaque 350 Inj) 80 ml STK-MED ONCE G-TUBE Last administered on 12/13at 15:00; Start 12/14/15 at 14:55; Stop 12/14/15 at 14:56; Status DC Albuterol/ Ipratropium (Duoneb Neb) 1 ampule Q6HR NEB NEB Last administered on 12/28/15at 08:04; Start 12/15/15 at 10:00; Stop 12/28/15 at 13:16; Status DC Diatrizoate Meglum/ Diatrizoate Sod ( Gastroview Liq) 18 ml ONCE ONCE PO Last administered on 12/15/15at 11:54; Start 12/15/15 at 11:15; Stop 12/15/15 at 11:16; Status DC Rocuronium [place] (Zemuron Inj) 50 mg BOLUS ONCE IV ; Start 12/15/15 at 14:30 ; Stop 12/15/15 at 14:31; Status DC Iohexol (Omnipaque 350 Inj) 96 ml STK-MED ONCE IV Last administered on at 14:56; Start 12/15/15 at 14:56; Stop 12/15/15 at 14:57; Status DC Midazolam HCl (Versed Inj) 5 mg STK-MED ONCE .ROUTE ; Start 12/16/15 at 08:41; Stop 12/16/15 at 08:42; Status DC Midazolam HCl (Versed Inj) 5 mg ONCE STAT IV Last administered on 12/16/15at 09 :30; Start 12/16/15 at 09:30; Stop 12/16/15 at 09:31; Status DC Miscellaneous Information SPECIFIC LAB TO BE SHARON... ONCE ONCE XX ; Start at 08:45; Stop 12/19/15 at 08:45; Status DC Midazolam HCl (Versed Inj) 2 mg Q2H PRN IV PUSH agitation Last administered on 12/20/15at 22:29; Start 12/17/15 at 21:15; Stop 12/21/15 at 13:16; Status DC Metoclopramide HCl (Reglan Inj) 10 mg Q8HR IV PUSH Last administered on at 12:51; Start 12/18/15 at 14:00; Stop 12/24/15 at 12:46; Status DC Lactulose 30 ml 30 ml Q12H PO ; Start 12/18/15 at 13:00; Stop 12/19/15 at 10:06 ; Status DC Potassium Phosphate/Sodium Chloride (Potassium Phosphate Inj/NS 250 ml Inj) 260 ml @ 43.333 mls/ hr ONCE ONCE IV Last administered on 12/19/15at 10:25; Start 12/19/15 at 10:00; Stop 12/19/15 at 15:59; Status DC Pantoprazole Sodium (Protonix Inj) 40 mg Q24H IV PUSH Last administered on 12/22at 12:51; Start 12/19/15 at 12:00; Stop 12/24/15 at 11:37; Status DC Metoprolol Tartrate (Lopressor Inj) 5 mg Q4HR IV PUSH Last administered on 12/20at 12:36; Start 12/19/15 at 12:00; Stop 12/21/15 at 12:49; Status DC Fentanyl (Duragesic 50 Mcg Patch.72 Hr) 1 patch Q3D TD Last administered on 01/31/16at 08:16; Start 12/20/15 at 09:00; Stop 02/03/16 at 08:45; Status DC Miscellaneous Information 1 Q3D TD Last administered on 01/31/16at 08:16; Start 12/23/15 at 09:00; Stop 01/31/16 at 10:57; Status DC Acetaminophen/ Hydrocodone Bitart ([place] 5-325 Mg) 1 tab Q6H PRN PO PAIN SCALE 1 TO 5; Start 12/20/15 at 09:00; Stop 12/21/15 at 13:45; Status DC Acetaminophen/ Hydrocodone Bitart ([place] 5-325 Mg) 2 tab Q6H PRN PO PAIN SCALE 6 TO 10; Start 12/20/15 at 09:00; Stop 12/21/15 at 13:45; Status DC Morphine Sulfate (Morphine Inj) 2 mg Q2HR PRN IV PUSH PAIN SCALE 8 TO 10 Last administered on 12/24/15at 14:44; Start 12/20/15 at 09:00; Stop 12/25/15 at 13:18 ; Status DC Morphine Sulfate (Morphine Inj) 4 mg Q4HR PRN IV PUSH PAIN SCALE 6 TO 10 Last administered on 12/20/15at 22:32; Start 12/20/15 at 09:00; Stop 12/21/15 at 13:45 ; Status DC Enoxaparin Sodium (Lovenox Inj) 30 mg Q12H SQ Last administered on 01/16/16at 22 :26; Start 12/20/15 at 10:00; Stop 01/17/16 at 09:48; Status DC Metoprolol Tartrate (Lopressor Inj) 5 mg ONCE ONCE IV PUSH Last administered on 12/21/15at 13:22; Start 12/21/15 at 12:45; Stop 12/21/15 at 12:56; Status DC Metoprolol Tartrate (Lopressor Inj) 10 mg Q4HR IV PUSH Last administered on at 09:28; Start 12/21/15 at 16:00; Stop 12/24/15 at 11:35; Status DC Olanzapine 5 mg 5 mg Q8H PRN PO AGITATION AND/OR HALLUCINATION Last administered on 12/31/15at 12:37; Start 12/21/15 at 13:00; Stop 01/14/16 at 13:04 ; Status DC Potassium Chloride 100 ml @ 50 mls/hr Q2H PRN IV For Potassium 2.8 - 3.2 mEq/L ; Start 12/21/15 at 13:00; Stop 01/13/16 at 21:27; Status DC Potassium Chloride (KCl 20 Meq Premix Inj) 100 ml @ 50 mls/hr Q2H PRN IV For Potassium 2.8 - 3.2 mEq/L; Start 12/21/15 at 13:00; Stop 01/13/16 at 21:27; Status DC Potassium Chloride 40 meq 40 meq UNSCH PRN PO/TUBE For Potassium 3.3 - 3.5 mEq/ L Last administered on 12/21/15at 15:19; Start 12/21/15 at 13:00; Stop 01/13/16 at 21:27; Status DC Potassium Chloride 100 ml @ 25 mls/hr UNSCH PRN IV For Potassium 3.3 - 3.5 mEq /L; Start 12/21/15 at 13:00; Stop 01/13/16 at 21:27; Status DC Potassium Chloride 100 ml @ 50 mls/hr Q2H PRN IV For Potassium 3.3 - 3.5 mEq/L ; Start 12/21/15 at 13:00; Stop 01/13/16 at 21:27; Status DC Magnesium Sulfate/ Sodium Chloride (Magnesium Sulfate Inj/NS Inj) 100 ml @ 50 mls/hr UNSCH PRN IV For Magnesium 0.9 - 1.1 mg/dL; Start 12/21/15 at 13:00; Stop 01/13/16 at 21:27; Status DC Magnesium Oxide 800 mg 800 mg UNSCH PRN PO For Magnesium 1.2 - 1.6 mg/dL; Start 12/21/15 at 13:00; Stop 01/13/16 at 21:27; Status DC Magnesium Sulfate/ Sodium Chloride (Magnesium Sulfate Inj/NS Inj) 100 ml @ 50 mls/hr UNSCH PRN IV For Magnesium 1.2 - 1.6 mg/dL; Start 12/21/15 at 13:00; Stop 01/13/16 at 21:27; Status DC Potassium Phosphate 2000 mg 2,000 mg Q4H PRN PO For Phosphorus < 2.5 mg/dL; Start 12/21/15 at 13:00; Stop 01/13/16 at 21:27; Status DC Sodium Phosphate/ Sodium Chloride (Sodium Phosphate Inj/NS 250 ml Inj) 250 ml @ 42 mls/hr UNSCH PRN IV For Phosphorus < 2.5 mg/dL Last administered on at 11:18; Start 12/21/15 at 13:00; Stop 01/13/16 at 21:27; Status DC Potassium Chloride (KCl 40 Meq/30 ml Liq) 40 meq UNSCH PRN PO/TUBE SEE LABEL COMMENTS; Start 12/21/15 at 13:00; Stop 01/13/16 at 21:27; Status DC Potassium Phosphate 2000 mg 2,000 mg UNSCH PRN PO/TUBE SEE LABEL COMMENTS; Start 12/21/15 at 13:00; Stop 01/13/16 at 21:27; Status DC Potassium Phosphate/Sodium Chloride (Potassium Phosphate Inj/NS 250 ml Inj) 260 ml @ 42 mls/hr UNSCH PRN IV SEE LABEL COMMENTS; Start 12/21/15 at 13:00; Stop 01/13/16 at 21:27; Status DC Oxycodone HCl (Roxicodone Intensol Liq) 5 mg Q4H PRN PO PAIN SCALE 4 TO 7 Last administered on 01/13/16at 11:08; Start 12/21/15 at 13:45; Stop 01/14/16 at 13:04 ; Status DC Labetalol HCl (Trandate Inj) 20 mg Q1H PRN IV PUSH SBP>170, DBP>90, HR>65 Last administered on 12/27/15at 10:22; Start 12/21/15 at 14:30; Stop 01/13/16 at 21:27 ; Status DC Levetriacetam (Keppra Liq) 500 mg Q12HR TUBE Last administered on 03/11/16at 08:30; Start 12/22/15 at 21:00 Acetaminophen (Tylenol 650 Mg/ 20 ml Liq) 650 mg Q6H PRN J-TUBE PAIN SCALE 1 TO 5, T > 101 Last administered on 02/21/16at 06:23; Start 12/22/15 at 11:00 Labetalol HCl (Trandate Inj) 40 mg NOW ONCE IVP ; Start 12/23/15 at 12:00; Stop 12/23/15 at 12:01; Status DC Acetaminophen 650 mg 650 mg NOW ONCE J-TUBE ; Start 12/23/15 at 13:45; Stop at 13:46; Status DC Vancomycin HCl 1250 mg/Sodium Chloride 275 ml @ 250 mls/hr ONCE ONCE IV Last administered on 12/23/15at 17:14; Start 12/23/15 at 16:00; Stop 12/23/15 at 17:05 ; Status DC Piperacillin Sod/ Tazobactam Sod (Zosyn 3.375 Gm Premix) 50 ml @ 100 mls/hr Q8H IV Last administered on 01/05/16at 15:51; Start 12/23/15 at 16:00; Stop 04/11 at 18:15; Status DC Metoprolol Tartrate (Lopressor) 25 mg Q8HR TUBE Last administered on 01/15/16at 13:14; Start 12/24/15 at 14:00; Stop 01/15/16 at 15:23; Status DC Pantoprazole Sodium (Protonix Inj) 40 mg Q24H IV PUSH Last administered on 12/23at 12:21; Start 12/24/15 at 12:00; Stop 12/24/15 at 13:00; Status DC Ranitidine HCl (Zantac Liq) 150 mg Q12HR TUBE Last administered on 01/15/16at 10:14; Start 12/25/15 at 09:00; Stop 01/15/16 at 15:24; Status DC Metoclopramide HCl (Reglan Liq) 10 mg Q12HR G-TUBE Last administered on at 08:30; Start 12/24/15 at 21:00 Alprazolam (Xanax) 0.25 mg Q8HR PO Last administered on 01/13/16at 13:47; Start 12/25/15 at 14:00; Stop 01/14/16 at 13:04; Status DC Sennosides (Senna Liq) 8.8 mg ONCE ONCE PO Last administered on 12/25/15at 12: 03; Start 12/25/15 at 12:00; Stop 12/25/15 at 12:01; Status DC Sennosides (Senna Liq) 8.8 mg Q12HR PO Last administered on 01/13/16at 11:06; Start 12/25/15 at 21:00; Stop 01/14/16 at 13:04; Status DC Morphine Sulfate (Morphine Inj) 4 mg Q3H PRN IV PUSH PAIN SCALE 8 TO 10 Last administered on 01/17/16at 02:36; Start 12/25/15 at 13:15; Stop 01/17/16 at 09:45 ; Status DC Methylprednisolone Sodium Succinate (SoluMEDROL INJ) 40 mg Q8HR IV PUSH Last administered on 12/27/15at 05:50; Start 12/25/15 at 22:00; Stop 12/27/15 at 07:00; Status DC Midazolam HCl (Versed Inj) 10 mg ONCE ONCE IV Last administered on 12/26/15at 11 :22; Start 12/26/15 at 10:30; Stop 12/26/15 at 10:41; Status DC Fentanyl Citrate (Sublimaze Inj) 250 mcg ONCE ONCE IV PUSH Last administered on 12/26/15at 11:22; Start 12/26/15 at 10:30; Stop 12/26/15 at 10:41; Status DC Rocuronium [place] (Zemuron Inj) 100 mg BOLUS ONCE IV Last administered on 12/25at 11:21; Start 12/26/15 at 10:30; Stop 12/26/15 at 10:44; Status DC Acetylcysteine (Mucomyst 20% Neb) 2 ml Q8HR NEB NEB Last administered on at 07:34; Start 12/27/15 at 00:00; Stop 12/31/15 at 00:00; Status DC Propofol (Diprivan 200 Mg/20 ml Inj) 250 mg STK-MED ONCE IV PUSH ; Start at 13:23; Stop 12/30/15 at 13:46; Status DC Diatrizoate Meglum/ Diatrizoate Sod ( Gastroview Liq) 18 ml ONCE ONCE PO ; Start 12/30/15 at 16:00; Stop 12/30/15 at 16:01; Status Cancel Magnesium Hydroxide 30 ml 30 ml BID PRN PEG CONSTIPATION Last administered on at 09:42; Start 01/02/16 at 19:15; Stop 01/15/16 at 15:23; Status DC Dextrose/Sodium Chloride (D5W-1/2 NS 1000 ml Inj) 1,000 ml @ 60 mls/hr [id number] IV Last administered on 01/05/16at 17:08; Start 01/03/16 at 16:30; Stop 01/06/16 at 08:12; Status DC Ephedrine Sulfate (ePHEDrine/NS 50 MG/5 ML SYR) 50 mg STK-MED ONCE IV ; Start at 12:00; Stop 01/06/16 at 10:00; Status DC Phenylephrine HCl 1000 mcg 1,000 mcg STK-MED ONCE IV ; Start 12/30/15 at 12:00; Stop 01/06/16 at 10:00; Status DC Dextrose/Sodium Chloride (D5W-NS 1000 ml Inj) 1,000 ml @ 42 mls/hr [id number] IV Last administered on 01/13/16at 03:14; Start 01/06/16 at 11:00; Stop 01/15/16 at 14:53; Status DC Hyoscyamine Sulfate (Levsin Inj) 0.125 mg Q6H PRN IVP SECRETIONS Last administered on 01/16/16at 10:43; Start 01/10/16 at 21:45; Stop 01/17/16 at 09:49 ; Status DC Hyoscyamine Sulfate 0.125 mg 0.125 mg Q6H PRN SL SECRETIONS Last administered on 02/03/16at 17:17; Start 01/10/16 at 21:45; Stop 02/10/16 at 11:47; Status DC Levetriacetam (Keppra 500 Mg Premix Inj) 100 ml @ 400 mls/hr BOLUS ONCE IV Last administered on 01/13/16at 21:54; Start 01/13/16 at 22:00; Stop 01/13/16 at 22:14; Status DC Metoprolol Tartrate (Lopressor Inj) 5 mg ONCE ONCE IV PUSH Last administered on 01/13/16at 21:54; Start 01/13/16 at 22:00; Stop 01/13/16 at 22:01; Status DC Alprazolam (Xanax) 0.25 mg Q8HR G-TUBE Last administered on 02/05/16at 04:08; Start 01/14/16 at 14:00; Stop 02/05/16 at 09:53; Status DC Olanzapine (ZyPREXA ZYDIS ODT) 5 mg Q8H PRN .XX AGITATION AND/OR HALLUCINATION Last administered on 02/05/16at 04:08; Start 01/14/16 at 21:00 Oxycodone HCl (Roxicodone Intensol Liq) 5 mg Q4H PRN G-TUBE PAIN SCALE 4 TO 7 Last administered on 01/23/16at 12:11; Start 01/14/16 at 13:45; Stop 01/26/16 at 10:13; Status DC Sennosides (Senna Liq) 8.8 mg Q12HR GT Last administered on 02/08/16at 10:57; Start 01/14/16 at 21:00; Stop 02/09/16 at 08:49; Status DC Lorazepam 1 mg 1 mg Q6H PRN IV PUSH SEIZURES Last administered on 01/18/16at 10: 51; Start 01/14/16 at 13:00; Stop 01/20/16 at 11:19; Status DC Potassium Chloride/Dextrose/ Sod Cl (D5-1/2 NS + KCl 20 Meq Inj) 1,000 ml @ 84 mls/hr [id number] IV Last administered on 01/16/16at 22:27; Start 01/15/16 at 15:00 ; Stop 01/17/16 at 09:45; Status DC Magnesium Hydroxide (Milk Of Magnesia Liq) 30 ml BID PRN G-TUBE CONSTIPATION Last administered on 03/06/16at 06:21; Start 01/15/16 at 15:30 Metoprolol Tartrate (Lopressor) 25 mg Q8HR G-TUBE Last administered on 21:05; Start 01/15/16 at 22:00; Stop 01/26/16 at 10:13; Status DC Ranitidine HCl (Zantac Liq) 150 mg Q12HR G-TUBE Last administered on at 08:44; Start 01/15/16 at 21:00; Stop 02/14/16 at 12:36; Status DC Albuterol Sulfate (Albuterol Neb) 0.63 mg QID NEB NEB Last administered on 11:36; Start 01/15/16 at 16:00; Stop 01/23/16 at 13:50; Status DC Morphine Sulfate (Morphine Inj) 8 mg STK-MED ONCE .ROUTE Last administered on 16:41; Start 01/16/16 at 16:41; Stop 01/16/16 at 16:42; Status DC Fentanyl Citrate (Sublimaze Inj) 100 mcg STK-MED ONCE .ROUTE Last administered on 01/16/16 16:59; Start 01/16/16 at 16:59; Stop 01/16/16 at 17:00; Status DC Midazolam HCl (Versed Inj) 2 mg STK-MED ONCE .ROUTE Last administered on at 16:59; Start 01/16/16 at 16:59; Stop 01/16/16 at 17:00; Status DC Iohexol (Omnipaque 350 Inj) 25 ml STK-MED ONCE G-TUBE Last administered on 01/15at 17:20; Start 01/16/16 at 17:20; Stop 01/16/16 at 17:36; Status DC Enoxaparin Sodium (Lovenox Inj) 40 mg Q24H SQ ; Start 01/17/16 at 22:00; Stop at 22:00; Status DC Sodium Biphosphate/ Sodium Phosphate (Fleets Enema (Adult)) 133 ml UNSCH PRN [place] CONSTIPATION; Start 01/17/16 at 10:00 Enoxaparin Sodium (Lovenox Inj) 40 mg Q24H SQ Last administered on 03/10/16at 21:17; Start 01/17/16 at 22:00 Morphine Sulfate (Morphine Inj) 4 mg ONCE ONCE IV PUSH Last administered on at 00:38; Start 01/20/16 at 00:15; Stop 01/20/16 at 00:17; Status DC Morphine Sulfate 4 mg 4 mg Q3H PRN IV PUSH PAIN SCALE 7 TO 10 Last administered on 01/26/16at 06:07; Start 01/20/16 at 08:30; Stop 01/26/16 at 10:11; Status DC Levofloxacin/ Dextrose (Levaquin 750 Mg Premix Inj) 150 ml @ 100 mls/hr Q24H IV Last administered on 01/29/16at 12:08; Start 01/20/16 at 12:00; Stop 01/29/16 at 19:00; Status DC Morphine Sulfate (Morphine Inj) 2 mg Q4HR PRN IV PUSH BREAKTHROUGH PAIN Last administered on 01/27/16at 19:23; Start 01/26/16 at 12:00; Stop 01/30/16 at 08:13; Status DC Acetaminophen/ Hydrocodone Bitart (Hycet 325-7.5 Mg Liq) 10 ml Q6H PRN PO PAIN SCALE 6 TO 10 Last administered on 01/30/16at 01:03; Start 01/26/16 at 10:15; Stop 01/30/16 at 08:13; Status DC Metoprolol Tartrate (Lopressor) 12.5 mg Q12HR G-TUBE Last administered on at 09:30; Start 01/26/16 at 21:00; Stop 03/03/16 at 06:26; Status DC Promethazine HCl (Phenergan Inj) 12.5 mg Q4H PRN IM nausea Last administered on 03/07/16at 10:07; Start 01/27/16 at 20:15 Scopolamine (Transderm-Scop 1.5 Mg Patch.72 Hr) 1 patch Q3D TD Last administered on 02/08/16at 23:13; Start 01/27/16 at 21:00; Stop 02/11/16 at 08:07 ; Status DC Miscellaneous Information 1 Q3D TD Last administered on 02/08/16at 21:00; Start 01/30/16 at 21:00; Stop 02/11/16 at 08:07; Status DC Acetaminophen/ Hydrocodone Bitart (Hycet 325-7.5 Mg Liq) 5 ml Q6H PRN PO PAIN SCALE 6 TO 10 Last administered on 02/02/16at 12:50; Start 01/30/16 at 10:15; Stop 02/03/16 at 15:46; Status DC Fentanyl (Duragesic 25 Mcg Patch.72 Hr) 1 patch Q3D TD Last administered on 03/10/16at 09:15; Start 02/03/16 at 09:00 Miscellaneous Information 1 Q3D TD Last administered on 03/10/16at 09:15; Start 02/03/16 at 11:00 Metoprolol Tartrate 12.5 mg 12.5 mg ONCE ONCE PO Last administered on at 05:10; Start 02/01/16 at 04:45; Stop 02/01/16 at 04:51; Status DC Pharmacy Profile Note 0 ml @ 0 mls/hr UNSCH OTHER ; Start 02/01/16 at 07:45; Stop 02/04/16 at 16:02; Status DC Vancomycin HCl 1000 mg/Sodium Chloride 250 ml @ 250 mls/hr ONCE ONCE IV Last administered on 02/01/16at 08:25; Start 02/01/16 at 08:00; Stop 02/01/16 at 08:59; Status DC Piperacillin Sod/ Tazobactam Sod 100 ml @ 200 mls/hr Q6H IV Last administered on 02/06/16at 09:43; Start 02/01/16 at 09:00; Stop 02/06/16 at 14:49; Status DC Sodium Chloride 1,000 ml @ 100 mls/hr Q10H IV ; Start 02/01/16 at 07:45; Stop at 09:16; Status DC Sodium Chloride 1,000 ml @ 999 mls/hr BOLUS ONCE IV Last administered on at 08:24; Start 02/01/16 at 07:45; Stop 02/01/16 at 08:45; Status DC Sodium Chloride (NS 1000 ml Inj) 1,000 ml @ 75 mls/hr [id number] IV Last administered on 02/04/16at 05:21; Start 02/01/16 at 09:15; Stop 02/04/16 at 09:04 ; Status DC Miscellaneous Information SPECIFIC LAB TO BE DRAWN:VANCO TROUGH DATE... ONCE ONCE XX Last administered on 02/03/16at 14:32; Start 02/03/16 at 13:45; Stop at 13:46; Status DC Diatrizoate Meglum/ Diatrizoate Sod ( Gastroview Liq) 18 ml ONCE ONCE PO Last administered on 02/01/16at 12:06; Start 02/01/16 at 12:00; Stop 02/01/16 at 12: 01; Status DC Albuterol/ Ipratropium 1 ampule 1 ampule Q6HR WHILE AWAKE NEB NEB Last administered on 02/05/16at 19:56; Start 02/01/16 at 20:00; Stop 02/05/16 at 20:00 ; Status DC Sodium Chloride (NS 1000 ml Inj) 1,000 ml @ 999 mls/hr BOLUS ONCE IV Last administered on 02/01/16at 16:10; Start 02/01/16 at 16:30; Stop 02/01/16 at 17:30; Status DC Iohexol (Omnipaque 350 Inj) 70 ml STK-MED ONCE IV Last administered on at 16:38; Start 02/01/16 at 16:38; Stop 02/01/16 at 16:39; Status DC Miscellaneous Information Patient in critical care unit? Ass... [id number] Last administered on 02/01/16at 18:15; Start 02/01/16 at 18:15 Chlorhexidine Gluconate (Chlorhexidine 2% Cloth) 3 pack DAILY@04 TOP Last administered on 02/04/16at 03:53; Start 02/02/16 at 04:00; Stop 02/06/16 at 04:01 ; Status DC Chlorhexidine Gluconate 3 pack 3 pack UNSCH PRN TOP HYGIENIC CARE; Start at 18:15; Stop 02/06/16 at 18:04; Status DC Sodium Chloride 1,000 ml @ 999 mls/hr BOLUS ONCE IV Last administered on at 19:30; Start 02/01/16 at 19:30; Stop 02/01/16 at 20:30; Status DC Sodium Chloride 1,000 ml @ 999 mls/hr BOLUS ONCE IV Last administered on at 20:29; Start 02/01/16 at 20:30; Stop 02/01/16 at 21:30; Status DC Vancomycin HCl 1000 mg/Sodium Chloride 250 ml @ 250 mls/hr Q18H IV Last administered on 02/03/16at 14:32; Start 02/02/16 at 02:00; Stop 02/03/16 at 17:31; Status DC Sodium Chloride 1,000 ml @ 999 mls/hr BOLUS ONCE IV Last administered on at 00:39; Start 02/02/16 at 00:30; Stop 02/02/16 at 01:30; Status DC Sodium Chloride 1,000 ml @ 999 mls/hr BOLUS ONCE IV Last administered on at 08:11; Start 02/02/16 at 08:00; Stop 02/02/16 at 09:00; Status DC Potassium Chloride/Sodium Chloride (NS + KCl 20 Meq Inj) 1,000 ml @ 125 mls/hr Q8H ONCE IV Last administered on 02/02/16at 23:52; Start 02/02/16 at 23:45; Stop 02/03/16 at 07:44; Status DC Acetaminophen/ Hydrocodone Bitart (Hycet 325-7.5 Mg Liq) 15 ml Q6H PRN PO PAIN SCALE 6 TO 10 Last administered on 03/11/16at 08:36; Start 02/03/16 at 16:15 Furosemide 20 mg 20 mg ONCE ONCE IV PUSH Last administered on 02/03/16at 17:16; Start 02/03/16 at 17:15; Stop 02/03/16 at 17:16; Status DC Vancomycin HCl/ Sodium Chloride (Vancomycin Inj/ NS 250 ml Inj) 275 ml @ 275 mls/hr Q18H IV Last administered on 02/04/16at 03:53; Start 02/04/16 at 04:00; Stop 02/04/16 at 15:19; Status DC Miscellaneous Information SPECIFIC LAB TO BE SHARON... ONCE ONCE XX ; Start at 09:45; Stop 02/06/16 at 09:46; Status Cancel Potassium Chloride (KCl 20 Meq Premix Inj) 100 ml @ 50 mls/hr Q2H IV Last administered on 02/04/16at 11:00; Start 02/04/16 at 09:00; Stop 02/04/16 at 12:59 ; Status DC Potassium Chloride (KCl) 20 meq ONCE ONCE PO Last administered on 02/04/16at 08 :46; Start 02/04/16 at 08:30; Stop 02/04/16 at 08:51; Status DC Potassium Chloride (KCl 40 Meq/30 ml Liq) 20 meq ONCE ONCE G-TUBE Last administered on 02/04/16at 10:00; Start 02/04/16 at 09:00; Stop 02/04/16 at 09:01 ; Status DC Furosemide 20 mg 20 mg ONCE ONCE IV PUSH Last administered on 02/04/16at 10:05 ; Start 02/04/16 at 09:00; Stop 02/04/16 at 09:01; Status DC Magnesium Sulfate/ Dextrose (Magnesium Sulfate 1 Gm Premix) 100 ml @ 100 mls/ hr ONCE ONCE IV Last administered on 02/04/16at 09:08; Start 02/04/16 at 09:00 ; Stop 02/04/16 at 09:59; Status DC Escitalopram Oxalate 20 mg 20 mg HS PO Last administered on 02/12/16at 21:34; Start 02/04/16 at 21:00; Stop 02/14/16 at 17:16; Status DC Potassium Chloride 100 ml @ 50 mls/hr Q2H IV Last administered on 02/05/16at 11 :00; Start 02/05/16 at 09:00; Stop 02/05/16 at 12:59; Status DC Magnesium Sulfate/ Dextrose (Magnesium Sulfate 1 Gm Premix) 100 ml @ 100 mls/ hr ONCE ONCE IV Last administered on 02/05/16at 08:00; Start 02/05/16 at 08:00 ; Stop 02/05/16 at 08:59; Status DC Alprazolam (Xanax) 0.25 mg Q6H PRN PO agitation; Start 02/05/16 at 09:45; Stop 02/05/16 at 09:53; Status DC Furosemide (Lasix) 20 mg DAILY PO Last administered on 02/09/16at 10:07; Start 02/06/16 at 09:00; Stop 02/10/16 at 08:59; Status DC Alprazolam 0.5 mg 0.5 mg Q8HR G-TUBE Last administered on 02/14/16at 13:51; Start 02/05/16 at 14:00; Stop 02/14/16 at 17:15; Status DC Potassium Chloride (KCl 20 Meq Premix Inj) 100 ml @ 50 mls/hr Q2H IV Last administered on 02/06/16at 18:36; Start 02/06/16 at 16:00; Stop 02/06/16 at 19:59 ; Status DC Potassium Bicarb/ Potassium Chloride (K-Lyte Cl Eff) 50 meq ONCE ONCE PO Last administered on 02/06/16at 15:51; Start 02/06/16 at 15:30; Stop 02/06/16 at 15:31; Status DC Levofloxacin (Levaquin) 750 mg DAILY PO Last administered on 02/10/16at 09:00; Start 02/07/16 at 09:00; Stop 02/11/16 at 08:59; Status DC Sennosides (Senna Liq) 8.8 mg Q12HR PRN GT CONSTIPATION; Start 02/09/16 at 09: 00 Pantoprazole Sodium (Protonix) 40 mg DAILY PO Last administered on 02/15/16at 11 :44; Start 02/14/16 at 13:00; Stop 02/15/16 at 12:58; Status DC Ondansetron HCl (Zofran Odt) 4 mg ONCE ONCE PO Last administered on at 13:51; Start 02/14/16 at 12:45; Stop 02/14/16 at 12:46; Status DC Furosemide (Lasix Inj) 40 mg ONCE ONCE IV PUSH Last administered on 02/14/16at 17:17; Start 02/14/16 at 16:45; Stop 02/14/16 at 16:46; Status DC Alprazolam 0.25 mg 0.25 mg Q8H PRN G-TUBE anxiety Last administered on at 17:57; Start 02/14/16 at 17:15 Levofloxacin/ Dextrose 150 ml @ 100 mls/hr Q24H IV Last administered on at 21:00; Start 02/14/16 at 21:00; Stop 02/15/16 at 08:43; Status DC Piperacillin Sod/ Tazobactam Sod (Zosyn 4.5 Gm Premix) 100 ml @ 200 mls/hr Q6H IV Last administered on 02/15/16at 11:43; Start 02/15/16 at 11:00; Stop at 12:47; Status DC Ondansetron HCl 4 mg 4 mg TID PO Last administered on 03/11/16at 08:30; Start 02/15/16 at 13:00 Ceftriaxone Sodium/Sodium Chloride (Rocephin Inj/NS Inj) 100 ml @ 200 mls/hr Q24H IV Last administered on 02/24/16at 13:42; Start 02/15/16 at 13:00; Stop at 17:00; Status DC Pantoprazole Sodium (Protonix) 40 mg BID PO Last administered on 02/22/16at 21: 32; Start 02/15/16 at 21:00; Stop 02/23/16 at 16:36; Status DC Docusate Sodium (Colace) 100 mg BID PO ; Start 02/15/16 at 13:00; Stop 02/15/16 at 15:33; Status DC Sennosides (Senokot) 17.2 mg DAILY PO Last administered on 03/11/16at 08:30; Start 02/15/16 at 13:00 Lactulose (Lactulose Liq) 30 ml ONCE ONCE PO Last administered on 02/15/16at 13 :57; Start 02/15/16 at 13:00; Stop 02/15/16 at 13:01; Status DC Sodium Polystyrene Sulfonate (Kayexalate Liq) 30 gm ONCE ONCE GT Last administered on 02/15/16at 16:14; Start 02/15/16 at 15:45; Stop 02/15/16 at 15:46 ; Status DC Docusate Sodium 100 mg 100 mg Q12HR PO ; Start 02/15/16 at 21:00; Status UNV Dextrose/Sodium Chloride (D5W-NS 1000 ml Inj) 1,000 ml @ 75 mls/hr [id number] IV Last administered on 02/16/16at 05:10; Start 02/15/16 at 15:45; Stop 02/16/16 at 13:42; Status DC Docusate Sodium (Colace) 100 mg Q12HR PO Last administered on 03/06/16at 21:12 ; Start 02/15/16 at 21:00; Stop 03/07/16 at 14:46; Status DC Hydromorphone HCl (Dilaudid Pf Inj) 0.2 mg ONCE ONCE IV PUSH Last administered on 02/18/16at 03:14; Start 02/18/16 at 02:45; Stop 02/18/16 at 02:46 ; Status DC Hydromorphone HCl (Dilaudid Pf Inj) 0.2 mg Q4H PRN IV PUSH BREAKTHROUGH PAIN Last administered on 03/06/16at 06:00; Start 02/18/16 at 13:15; Stop 03/06/16 at 09:46; Status DC Influenza Virus Vaccine (Flu (Quadrivalent) Vaccine Inj) 0.5 ml ONCE ONCE IM Last administered on 02/21/16at 11:39; Start 02/21/16 at 10:00; Stop 02/21/16 at 10:01; Status DC Famotidine (Pepcid) 20 mg BID PO ; Start 02/23/16 at 21:00; Stop 02/23/16 at 21: 00; Status DC Lansoprazole (Prevacid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
[2016-03-11] MEDS: HYDROmorphone HCL PF 1 MG/ML VIAL IV PUSH PRN ×2 (16:09→21:25)
[2016-03-11] MEDS: ENOXAPARIN SODIUM 40 MG/0.4 ML SYRINGE SQ SCH (21:23)
[2016-03-11] MEDS: SODIUM CHLORIDE 0.9% FLUSH 5 ML FLUSH IVF SCH (21:24)
[2016-03-11] MEDS: ONDANSETRON HCL 4 MG/2 ML VIAL IV PRN (22:23)
[2016-03-11] MEDS: TEMAZEPAM 15 MG CAP PO PRN (23:40)
[2016-03-12] VITALS (8 sets, daily range): BP systolic 104–120; BP diastolic 62–69; PULSE 80–90; RESP 18–20; TEMP 97.2–98.4; O2SAT 92–97
[2016-03-12] MEDS: SODIUM CHLORIDE 0.9% FLUSH 5 ML FLUSH IVF SCH ×2 (09:00→21:08)
[2016-03-12] MEDS: METOCLOPRAMIDE HCL SYRUP 10 MG/10 ML UDC G-TUBE SCH ×2 (09:10→21:07)
[2016-03-12] MEDS: AMOXICILLIN/CLAVULANATE K 875 MG TAB PEG SCH (09:10)
[2016-03-12] MEDS: LANSOPRAZOLE SOLUTAB 30 MG TAB NG SCH ×2 (09:10→21:07)
[2016-03-12] MEDS: levETIRAcetam 500 MG/5 ML UDC TUBE SCH ×2 (09:10→21:07)
[2016-03-12] MEDS: ONDANSETRON ODT 4 MG TAB PO SCH ×3 (09:10→16:31)
[2016-03-12] MEDS: SENNOSIDES 8.6 MG TAB PO SCH (09:10)
[2016-03-12] MEDS: ACETAMINOPHEN 325MG/HYDROcodone 7.5MG/15ML UDC PO PRN ×3 (09:16→23:34)
[2016-03-12] MEDS: HYDROmorphone HCL PF 1 MG/ML VIAL IV PUSH PRN ×2 (11:30→21:11)
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
[2016-03-12] MEDS ORDERED: METHYLNALTREXONE BROMIDE 12 MG/0.6 ML VIAL SQ ONE ×2 (12:15)
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
[2016-03-12] MEDS: ENOXAPARIN SODIUM 40 MG/0.4 ML SYRINGE SQ SCH (21:07)
[2016-03-12] MEDS: ONDANSETRON HCL 4 MG/2 ML VIAL IV PRN (21:24)
[2016-03-12] MEDS: TEMAZEPAM 15 MG CAP PO PRN (23:34)
[2016-03-13] VITALS (8 sets, daily range): BP systolic 89–134; BP diastolic 58–89; PULSE 76–92; RESP 16–20; TEMP 96.8–98.3; O2SAT 93–97
[2016-03-13] MEDS ORDERED: DIATRIZOATE MEGLUM/DIATRIZOATE SOD 120 ML BTL (for RAD DIAG) PO ONE (10:00)
[2016-03-13] MEDS: ONDANSETRON ODT 4 MG TAB PO SCH ×3 (10:53→17:44)
[2016-03-13] MEDS: fentaNYL 25 MCG/HR PATCH TD SCH (10:54)
[2016-03-13] MEDS: REMOVE OLD PATCH TD SCH (10:54)
[2016-03-13] MEDS: SODIUM CHLORIDE 0.9% FLUSH 5 ML FLUSH IVF SCH ×2 (10:55→21:00)
[2016-03-13] MEDS: SENNOSIDES 8.6 MG TAB PO SCH (10:55)
[2016-03-13] MEDS: levETIRAcetam 500 MG/5 ML UDC TUBE SCH ×2 (10:55→21:48)
[2016-03-13] MEDS: METOCLOPRAMIDE HCL SYRUP 10 MG/10 ML UDC G-TUBE SCH ×2 (10:55→21:48)
[2016-03-13] MEDS: LANSOPRAZOLE SOLUTAB 30 MG TAB NG SCH ×2 (10:55→21:38)
--- NOTE | 2016-03-13 10:59 | RADRPT ---
EXAM DATE/TIME: 03/13/2016 10:18 [place] COMPARISON: ESOPHAGRAM, February 10, 2016, 15:44. INDICATIONS: Evaluate Fistula. FLUORO TIME: 1.1 minutes IMAGE COUNT: 19 CONTRAST: 1. Gastrografin (Diatrizoate Meglumine and Diatrizoate Sodium) MEDICAL HISTORY: Hiatal hernia. SURGICAL HISTORY: Hernia repair. Donte fundoplication ENCOUNTER: Subsequent ACUITY: 3 months PAIN SCORE: 0/10 LOCATION: Esophagus. FINDINGS: Gastrografin was given to the patient. The esophagus was patent. The patient does appear to have a stent in the left main bronchus. A communication with this stent or the airway is not seen. The div erticula measures approximately 2 cm. Seen is a persistent area of lucency with dependent area of co ntrast between the aorta and the bronchial stent. Contrast is seen to extend into the stomach. The s tomach is not distended. There are clips in the EG junction region. CONCLUSION: 1. No sign of extravasation or fistula. 2. 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 A c ommunication with the airway is not seen. Martinez Mireles MD on March 13, 2016 at 10:34 Board Certified Radiologist. This report was verified electronically.
[2016-03-13] MEDS: HYDROmorphone HCL PF 1 MG/ML VIAL IV PUSH PRN ×2 (11:15→21:38)
[2016-03-13] MEDS: ACETAMINOPHEN 325MG/HYDROcodone 7.5MG/15ML UDC PO PRN (13:30)
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
[2016-03-13] MEDS: TEMAZEPAM 15 MG CAP PO PRN (21:38)
[2016-03-13] MEDS: ENOXAPARIN SODIUM 40 MG/0.4 ML SYRINGE SQ SCH (21:39)
[2016-03-13] MEDS: ONDANSETRON HCL 4 MG/2 ML VIAL IV PRN (22:00)
[2016-03-14] MEDS: HYDROmorphone HCL PF 1 MG/ML VIAL IV PUSH PRN ×2 (02:40→09:53)
[2016-03-14 08:00] VITALS: BP 125/80; PULSE 88; RESP 20; TEMP 97.1; O2SAT 97
[2016-03-14] MEDS: SODIUM CHLORIDE 0.9% FLUSH 5 ML FLUSH IVF SCH ×2 (09:00→21:20)
[2016-03-14] MEDS: LANSOPRAZOLE SOLUTAB 30 MG TAB NG SCH ×2 (09:47→21:16)
[2016-03-14] MEDS: METOCLOPRAMIDE HCL SYRUP 10 MG/10 ML UDC G-TUBE SCH ×2 (09:47→21:16)
[2016-03-14] MEDS: levETIRAcetam 500 MG/5 ML UDC TUBE SCH ×2 (09:47→21:16)
[2016-03-14] MEDS: SENNOSIDES 8.6 MG TAB PO SCH (09:47)
[2016-03-14] MEDS: ONDANSETRON ODT 4 MG TAB PO SCH ×3 (09:47→17:15)
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
[2016-03-14] MEDS: ACETAMINOPHEN 325MG/HYDROcodone 7.5MG/15ML UDC PO PRN (17:13)
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
[2016-03-14 20:00] VITALS: BP 126/76; PULSE 84; RESP 18; TEMP 97.5; O2SAT 95
[2016-03-14 20:38] VITALS: O2SAT 98
[2016-03-14] MEDS: ALPRAZolam 0.25 MG TAB G-TUBE PRN (21:16)
[2016-03-14] MEDS: ENOXAPARIN SODIUM 40 MG/0.4 ML SYRINGE SQ SCH (21:17)
[2016-03-14] MEDS: ONDANSETRON HCL 4 MG/2 ML VIAL IV PRN (21:17)
[2016-03-15] MEDS: SENNOSIDES 8.6 MG TAB PO SCH (07:44)
[2016-03-15] MEDS: ACETAMINOPHEN 325MG/HYDROcodone 7.5MG/15ML UDC PO PRN ×3 (07:44→23:15)
[2016-03-15] MEDS: LANSOPRAZOLE SOLUTAB 30 MG TAB NG SCH ×2 (07:44→20:22)
[2016-03-15] MEDS: ONDANSETRON ODT 4 MG TAB PO SCH ×3 (07:44→16:41)
[2016-03-15] MEDS: METOCLOPRAMIDE HCL SYRUP 10 MG/10 ML UDC G-TUBE SCH ×2 (07:45→20:22)
[2016-03-15] MEDS: levETIRAcetam 500 MG/5 ML UDC TUBE SCH ×2 (07:45→20:22)
[2016-03-15 08:00] VITALS: BP 129/89; PULSE 89; RESP 18; TEMP 96.4; O2SAT 98
[2016-03-15] MEDS: SODIUM CHLORIDE 0.9% FLUSH 5 ML FLUSH IVF SCH ×2 (09:00→20:22)
[2016-03-15 09:17] VITALS: O2SAT 97
[2016-03-15] MEDS: ALPRAZolam 0.25 MG TAB G-TUBE PRN (10:16)
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
[2016-03-15 20:00] VITALS: BP 132/84; PULSE 87; RESP 20; TEMP 98.1; O2SAT 96
[2016-03-15 21:10] VITALS: O2SAT 97
[2016-03-15] MEDS: ENOXAPARIN SODIUM 40 MG/0.4 ML SYRINGE SQ SCH (21:18)
[2016-03-15 23:14] VITALS: BP 116/88; PULSE 89; RESP 16; TEMP 97.1; O2SAT 97
[2016-03-15] MEDS: TEMAZEPAM 15 MG CAP PO PRN (23:15)
[2016-03-16 03:19] VITALS: BP 117/78; PULSE 92; RESP 24; TEMP 96.4; O2SAT 95
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
[2016-03-16 08:00] VITALS: BP 130/70; PULSE 88; RESP 20; TEMP 98; O2SAT 96
[2016-03-16 08:55] VITALS: O2SAT 96
[2016-03-16] MEDS: SODIUM CHLORIDE 0.9% FLUSH 5 ML FLUSH IVF SCH ×2 (09:00→21:00)
[2016-03-16] MEDS: REMOVE OLD PATCH TD SCH (09:00)
[2016-03-16] MEDS: METOCLOPRAMIDE HCL SYRUP 10 MG/10 ML UDC G-TUBE SCH ×2 (09:00→20:39)
[2016-03-16] MEDS: levETIRAcetam 500 MG/5 ML UDC TUBE SCH ×2 (09:00→20:39)
[2016-03-16] MEDS: LANSOPRAZOLE SOLUTAB 30 MG TAB NG SCH ×2 (09:00→20:38)
[2016-03-16] MEDS: ONDANSETRON ODT 4 MG TAB PO SCH ×3 (09:00→17:32)
[2016-03-16] MEDS: SENNOSIDES 8.6 MG TAB PO SCH (09:00)
[2016-03-16] MEDS: fentaNYL 25 MCG/HR PATCH TD SCH ×2 (09:05→11:07)
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
[2016-03-16] MEDS: ACETAMINOPHEN 325MG/HYDROcodone 7.5MG/15ML UDC PO PRN ×2 (14:55→23:34)
[2016-03-16] MEDS ORDERED: Z.0.WALKERFRONT (16:13)
[2016-03-16 20:00] VITALS: BP 117/72; PULSE 87; RESP 18; TEMP 98.1; O2SAT 97
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
[2016-03-16 20:49] VITALS: O2SAT 96
[2016-03-16] MEDS: ENOXAPARIN SODIUM 40 MG/0.4 ML SYRINGE SQ SCH (20:49)
[2016-03-16] MEDS: TEMAZEPAM 15 MG CAP PO PRN (23:34)
[2016-03-16] MEDS: ONDANSETRON HCL 4 MG/2 ML VIAL IV PRN (23:41)
[2016-03-17 08:00] VITALS: BP 116/74; PULSE 86; RESP 18; TEMP 96; O2SAT 94; O2SAT 98
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
[2016-03-17] MEDS: METOCLOPRAMIDE HCL SYRUP 10 MG/10 ML UDC G-TUBE SCH ×2 (09:00→20:55)
[2016-03-17] MEDS: LANSOPRAZOLE SOLUTAB 30 MG TAB NG SCH ×2 (09:00→20:55)
[2016-03-17] MEDS: SENNOSIDES SYRUP 8.8 MG/5 ML CUP G-TUBE SCH (09:00)
[2016-03-17] MEDS: ONDANSETRON ODT 4 MG TAB PO SCH ×3 (09:00→17:37)
[2016-03-17] MEDS: SODIUM CHLORIDE 0.9% FLUSH 5 ML FLUSH IVF SCH ×2 (09:00→20:55)
[2016-03-17] MEDS: levETIRAcetam 500 MG/5 ML UDC TUBE SCH ×2 (09:00→20:55)
--- NOTE | 2016-03-17 11:49 | RADHPO ---
EXAM DATE/TIME: 03/17/2016 08:47 [facility] COMPARISON: CHEST SINGLE AP, February 13, 2016, 11:54. INDICATIONS : Cough MEDICAL HISTORY : None. SURGICAL HISTORY : None. ENCOUNTER: Subsequent ACUITY: 2 weeks PAIN SCORE: 0/10 LOCATION: Bilateral chest FINDINGS: Persistent volume loss and diffuse interstitial and alveolar opacity left lung. There is cardiomegaly . There is a stent overlying the left main stem bronchus. Right lung is clear. Degenerative changes o f the spine with wedge compression fracture noted at T8. CONCLUSION: No significant change has occurred. Dar Mendoza MD on March 17, 2016 at 11:46 Board Certified Radiologist. This report was verified electronically.
[2016-03-17] MEDS: ACETAMINOPHEN 325MG/HYDROcodone 7.5MG/15ML UDC PO PRN ×2 (16:06→22:55)
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
[2016-03-17 19:12] VITALS: O2SAT 96
[2016-03-17 20:41] VITALS: BP 104/66; PULSE 84; RESP 20; TEMP 96.7; O2SAT 98
[2016-03-17] MEDS: ENOXAPARIN SODIUM 40 MG/0.4 ML SYRINGE SQ SCH (20:54)
[2016-03-17] MEDS: TEMAZEPAM 15 MG CAP PO PRN (22:54)
[2016-03-18 08:00] VITALS: BP 105/70; PULSE 84; RESP 18; TEMP 96.9; O2SAT 96; O2SAT 98
[2016-03-18] MEDS: SODIUM CHLORIDE 0.9% FLUSH 5 ML FLUSH IVF SCH ×2 (08:31→20:21)
[2016-03-18] MEDS: ACETAMINOPHEN 325MG/HYDROcodone 7.5MG/15ML UDC PO PRN ×2 (08:32→22:23)
[2016-03-18] MEDS: SENNOSIDES SYRUP 8.8 MG/5 ML CUP G-TUBE SCH (08:32)
[2016-03-18] MEDS: levETIRAcetam 500 MG/5 ML UDC TUBE SCH ×2 (08:32→20:21)
[2016-03-18] MEDS: ONDANSETRON ODT 4 MG TAB PO SCH ×3 (08:32→17:02)
[2016-03-18] MEDS: METOCLOPRAMIDE HCL SYRUP 10 MG/10 ML UDC G-TUBE SCH ×2 (08:32→20:21)
[2016-03-18] MEDS: LANSOPRAZOLE SOLUTAB 30 MG TAB NG SCH ×2 (08:32→20:21)
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
[2016-03-18 17:45] VITALS: TEMP 99.3
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
[2016-03-18 19:20] VITALS: O2SAT 98
[2016-03-18 20:00] VITALS: BP 136/84; PULSE 139; RESP 22; TEMP 100.3; O2SAT 94
[2016-03-18] MEDS: ENOXAPARIN SODIUM 40 MG/0.4 ML SYRINGE SQ SCH (20:27)
[2016-03-18] MEDS: ONDANSETRON HCL 4 MG/2 ML VIAL IV PRN (21:34)
[2016-03-18] MEDS: TEMAZEPAM 15 MG CAP PO PRN (22:22)
[2016-03-19 08:00] VITALS: O2SAT 96
[2016-03-19 08:21] VITALS: BP 105/65; PULSE 97; RESP 19; TEMP 96.6; O2SAT 96
[2016-03-19] MEDS: ONDANSETRON ODT 4 MG TAB PO SCH ×3 (08:30→18:19)
[2016-03-19] MEDS: LANSOPRAZOLE SOLUTAB 30 MG TAB NG SCH ×2 (08:30→23:41)
[2016-03-19] MEDS: SENNOSIDES SYRUP 8.8 MG/5 ML CUP G-TUBE SCH (08:31)
[2016-03-19] MEDS: levETIRAcetam 500 MG/5 ML UDC TUBE SCH ×2 (08:31→22:20)
[2016-03-19] MEDS: ACETAMINOPHEN 325MG/HYDROcodone 7.5MG/15ML UDC PO PRN ×2 (08:31→23:41)
[2016-03-19] MEDS: METOCLOPRAMIDE HCL SYRUP 10 MG/10 ML UDC G-TUBE SCH ×2 (08:32→22:20)
[2016-03-19] MEDS: fentaNYL 25 MCG/HR PATCH TD SCH (08:42)
[2016-03-19] MEDS: SODIUM CHLORIDE 0.9% FLUSH 5 ML FLUSH IVF SCH ×2 (08:42→22:19)
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
[2016-03-19] MEDS: REMOVE OLD PATCH TD SCH (11:00)
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
[2016-03-19] MEDS: ACETAMINOPHEN 650 MG/20.3 ML UDC J-TUBE PRN (16:36)
[2016-03-19 18:19] VITALS: BP 110/63; PULSE 82; RESP 18; TEMP 96.2; O2SAT 82
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
[2016-03-19 20:00] VITALS: BP 117/71; PULSE 85; RESP 20; TEMP 97.9; O2SAT 98
[2016-03-19 20:08] VITALS: O2SAT 99
[2016-03-19] MEDS: ENOXAPARIN SODIUM 40 MG/0.4 ML SYRINGE SQ SCH (22:20)
[2016-03-19] MEDS: TEMAZEPAM 15 MG CAP PO PRN (23:41)
[2016-03-20] VITALS: BP 115/70; PULSE 86; RESP 18; TEMP 98.3; O2SAT 95
[2016-03-20 04:00] VITALS: BP 111/63; PULSE 89; RESP 18; TEMP 97.8; O2SAT 95
[2016-03-20 05:09] LABS: AUTOMATED NEUTROPHIL # 4.3 TH/MM3 (1.8-7.7); BASOPHIL % 0.4 % (0.0-2.0); EOSINOPHIL # 0.2 TH/MM3 (0-0.4); EOSINOPHIL % 3.4 % (0.0-4.0); HEMATOCRIT 29.5 % (39.0-51.0); HEMO FLAGS DIFF FINAL; LYMPH % 29.6 % (9.0-44.0); LYMPHOCYTE # 2.1 TH/MM3 (1.0-4.8); MEAN CELL VOLUME 94.7 FL (80.0-100.0); MEAN CORPUSCULAR HEMOGLOBIN 30.6 PG (27.0-34.0); MEAN CORPUSCULAR HGB CONC 32.3 % (32.0-36.0); MONO % 6.4 % (0.0-8.0); NEUT % 60.2 % (16.0-70.0); PLATELET COUNT 317 TH/MM3 (150-450); RED BLOOD COUNT 3.12 MIL/MM3 (4.50-5.90); RED CELL DISTRIBUTION WIDTH 15.6 % (11.6-17.2)
[2016-03-20 05:10] LABS: POTASSIUM 4.2 MEQ/L (3.5-5.1)
[2016-03-20 05:13] LABS: BICARBONATE 33.3 MEQ/L (21.0-32.0)
[2016-03-20 08:00] VITALS: BP_SYST 101; BP_DIAS 56; BP_DIAS 58; PULSE 79; RESP 18; TEMP 97; O2SAT 96
[2016-03-20 08:09] VITALS: O2SAT 96
[2016-03-20] MEDS: SENNOSIDES SYRUP 8.8 MG/5 ML CUP G-TUBE SCH (09:11)
[2016-03-20] MEDS: METOCLOPRAMIDE HCL SYRUP 10 MG/10 ML UDC G-TUBE SCH ×2 (09:11→22:09)
[2016-03-20] MEDS: ONDANSETRON ODT 4 MG TAB PO SCH ×3 (09:11→17:29)
[2016-03-20] MEDS: SODIUM CHLORIDE 0.9% FLUSH 5 ML FLUSH IVF SCH ×2 (09:12→22:10)
[2016-03-20] MEDS: levETIRAcetam 500 MG/5 ML UDC TUBE SCH ×2 (09:13→22:09)
[2016-03-20] MEDS: LANSOPRAZOLE SOLUTAB 30 MG TAB NG SCH ×2 (09:29→22:09)
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
[2016-03-20 20:00] VITALS: BP 105/74; PULSE 89; RESP 16; TEMP 98.7; O2SAT 97
[2016-03-20 20:54] VITALS: O2SAT 96
[2016-03-20] MEDS: ENOXAPARIN SODIUM 40 MG/0.4 ML SYRINGE SQ SCH (22:10)
[2016-03-20] MEDS: ACETAMINOPHEN 325MG/HYDROcodone 7.5MG/15ML UDC PO PRN (22:12)
[2016-03-21] MEDS: TEMAZEPAM 15 MG CAP PO PRN ×2 (01:36→20:54)
[2016-03-21 08:00] VITALS: BP 119/84; PULSE 92; RESP 16; TEMP 98.6; O2SAT 96; O2SAT 99
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
[2016-03-21] MEDS ORDERED: ARTIFICIAL TEARS OPTH SOLN 15 ML BTL EACH EYE PRN (09:00)
[2016-03-21] MEDS: SENNOSIDES SYRUP 8.8 MG/5 ML CUP G-TUBE SCH (09:09)
[2016-03-21] MEDS: LANSOPRAZOLE SOLUTAB 30 MG TAB NG SCH ×2 (09:09→20:50)
[2016-03-21] MEDS: ONDANSETRON ODT 4 MG TAB PO SCH ×3 (09:09→17:57)
[2016-03-21] MEDS: SODIUM CHLORIDE 0.9% FLUSH 5 ML FLUSH IVF SCH ×2 (09:09→20:51)
[2016-03-21] MEDS: METOCLOPRAMIDE HCL SYRUP 10 MG/10 ML UDC G-TUBE SCH ×2 (09:10→20:50)
[2016-03-21] MEDS: levETIRAcetam 500 MG/5 ML UDC TUBE SCH ×2 (09:10→20:50)
[2016-03-21] MEDS: ACETAMINOPHEN 325MG/HYDROcodone 7.5MG/15ML UDC PO PRN (14:45)
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
[2016-03-21 20:00] VITALS: BP 103/68; PULSE 86; RESP 20; TEMP 96; O2SAT 96
[2016-03-21 20:18] VITALS: O2SAT 94
[2016-03-21] MEDS: ENOXAPARIN SODIUM 40 MG/0.4 ML SYRINGE SQ SCH (20:50)
[2016-03-21] MEDS: ACETAMINOPHEN 650 MG/20.3 ML UDC J-TUBE PRN (20:50)
[2016-03-22 08:00] VITALS: BP 102/66; PULSE 70; RESP 18; TEMP 98.1; O2SAT 96
[2016-03-22 08:05] VITALS: O2SAT 92
[2016-03-22] MEDS: levETIRAcetam 500 MG/5 ML UDC TUBE SCH ×2 (08:43→21:26)
[2016-03-22] MEDS: METOCLOPRAMIDE HCL SYRUP 10 MG/10 ML UDC G-TUBE SCH ×2 (08:43→21:26)
[2016-03-22] MEDS: LANSOPRAZOLE SOLUTAB 30 MG TAB NG SCH ×2 (08:44→21:25)
[2016-03-22] MEDS: SENNOSIDES SYRUP 8.8 MG/5 ML CUP G-TUBE SCH (08:44)
[2016-03-22] MEDS: ONDANSETRON ODT 4 MG TAB PO SCH ×3 (08:44→21:32)
[2016-03-22] MEDS: REMOVE OLD PATCH TD SCH (08:45)
[2016-03-22] MEDS: fentaNYL 25 MCG/HR PATCH TD SCH (08:45)
[2016-03-22] MEDS: SODIUM CHLORIDE 0.9% FLUSH 5 ML FLUSH IVF SCH ×2 (09:00→21:26)
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
[2016-03-22] MEDS: ACETAMINOPHEN 325MG/HYDROcodone 7.5MG/15ML UDC PO PRN (14:00)
[2016-03-22 19:34] VITALS: O2SAT 93
[2016-03-22 20:11] VITALS: BP 106/69; PULSE 92; RESP 18; TEMP 97.1; O2SAT 91
[2016-03-22] MEDS: TEMAZEPAM 15 MG CAP PO PRN (21:25)
[2016-03-22] MEDS: ONDANSETRON HCL 4 MG/2 ML VIAL IV PRN (21:27)
[2016-03-22] MEDS: ENOXAPARIN SODIUM 40 MG/0.4 ML SYRINGE SQ SCH (21:27)
[2016-03-23] MEDS: METOCLOPRAMIDE HCL SYRUP 10 MG/10 ML UDC G-TUBE SCH ×2 (08:47→21:13)
[2016-03-23] MEDS: LANSOPRAZOLE SOLUTAB 30 MG TAB NG SCH ×2 (08:48→21:13)
[2016-03-23] MEDS: ACETAMINOPHEN 325MG/HYDROcodone 7.5MG/15ML UDC PO PRN ×2 (08:48→21:14)
[2016-03-23] MEDS: ALPRAZolam 0.25 MG TAB G-TUBE PRN ×2 (08:48→21:13)
[2016-03-23] MEDS: levETIRAcetam 500 MG/5 ML UDC TUBE SCH ×2 (08:48→21:13)
[2016-03-23] MEDS: SODIUM CHLORIDE 0.9% FLUSH 5 ML FLUSH IVF SCH ×2 (08:49→21:13)
[2016-03-23] MEDS: ONDANSETRON ODT 4 MG TAB PO SCH ×2 (08:49→15:35)
[2016-03-23] MEDS: SENNOSIDES SYRUP 8.8 MG/5 ML CUP G-TUBE SCH (08:49)
[2016-03-23 08:51] VITALS: O2SAT 93
[2016-03-23] MEDS ORDERED: SENNOSIDES SYRUP 8.8 MG/5 ML CUP G-TUBE PRN (09:00)
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
[2016-03-23 11:40] VITALS: BP 140/74; PULSE 94; RESP 18; TEMP 96.1; O2SAT 92
[2016-03-23 20:00] VITALS: BP 112/68; PULSE 78; RESP 18; TEMP 97.5; O2SAT 94
[2016-03-23] MEDS: ENOXAPARIN SODIUM 40 MG/0.4 ML SYRINGE SQ SCH (21:13)
[2016-03-23] MEDS: TEMAZEPAM 15 MG CAP PO PRN (21:25)
[2016-03-24 07:54] VITALS: O2SAT 98
[2016-03-24 08:05] VITALS: BP 118/79; PULSE 93; RESP 16; TEMP 96.6; O2SAT 97
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
[2016-03-24] MEDS: METOCLOPRAMIDE HCL SYRUP 10 MG/10 ML UDC G-TUBE SCH ×2 (09:01→21:42)
[2016-03-24] MEDS: LANSOPRAZOLE SOLUTAB 30 MG TAB NG SCH ×2 (09:01→21:43)
[2016-03-24] MEDS: ACETAMINOPHEN 325MG/HYDROcodone 7.5MG/15ML UDC PO PRN ×3 (09:01→21:42)
[2016-03-24] MEDS: levETIRAcetam 500 MG/5 ML UDC TUBE SCH ×2 (09:01→21:42)
[2016-03-24] MEDS: ONDANSETRON ODT 4 MG TAB PO PRN (09:02)
[2016-03-24] MEDS: SODIUM CHLORIDE 0.9% FLUSH 5 ML FLUSH IVF SCH ×2 (09:11→21:43)
[2016-03-24 20:00] VITALS: BP 97/70; PULSE 19; RESP 19; TEMP 97.8; O2SAT 60
[2016-03-24] MEDS: TEMAZEPAM 15 MG CAP PO PRN (21:43)
[2016-03-24] MEDS: ENOXAPARIN SODIUM 40 MG/0.4 ML SYRINGE SQ SCH (21:43)
[2016-03-24 22:30] VITALS: O2SAT 97
[2016-03-25] MEDS: ONDANSETRON ODT 4 MG TAB PO PRN (02:04)
[2016-03-25 08:05] VITALS: BP 112/67; PULSE 97; RESP 18; TEMP 97.5; O2SAT 97
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
[2016-03-25] MEDS: METOCLOPRAMIDE HCL SYRUP 10 MG/10 ML UDC G-TUBE SCH ×2 (09:22→21:28)
[2016-03-25] MEDS: levETIRAcetam 500 MG/5 ML UDC TUBE SCH ×2 (09:22→21:27)
[2016-03-25] MEDS: ACETAMINOPHEN 325MG/HYDROcodone 7.5MG/15ML UDC PO PRN ×3 (09:23→22:29)
[2016-03-25] MEDS: LANSOPRAZOLE SOLUTAB 30 MG TAB NG SCH ×2 (09:25→21:28)
[2016-03-25 10:10] VITALS: O2SAT 94
[2016-03-25 19:55] VITALS: O2SAT 96
[2016-03-25 20:00] VITALS: BP 113/65; PULSE 88; RESP 20; TEMP 98.5; O2SAT 98
[2016-03-25] MEDS: ENOXAPARIN SODIUM 40 MG/0.4 ML SYRINGE SQ SCH (21:28)
[2016-03-25] MEDS: TEMAZEPAM 15 MG CAP PO PRN (22:29)
[2016-03-26 08:00] VITALS: BP 126/78; PULSE 81; RESP 17; TEMP 97.3; O2SAT 97
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
[2016-03-26] MEDS: LANSOPRAZOLE SOLUTAB 30 MG TAB NG SCH ×2 (09:00→20:43)
[2016-03-26] MEDS: METOCLOPRAMIDE HCL SYRUP 10 MG/10 ML UDC G-TUBE SCH ×2 (10:05→20:43)
[2016-03-26] MEDS: ACETAMINOPHEN 325MG/HYDROcodone 7.5MG/15ML UDC PO PRN ×2 (10:05→17:30)
[2016-03-26] MEDS: levETIRAcetam 500 MG/5 ML UDC TUBE SCH ×2 (10:06→20:43)
[2016-03-26] MEDS: ALPRAZolam 0.25 MG TAB G-TUBE PRN (13:51)
[2016-03-26 19:17] VITALS: O2SAT 97
[2016-03-26 20:40] VITALS: BP 121/86; PULSE 90; RESP 20; TEMP 97.7; O2SAT 97
[2016-03-26] MEDS: ENOXAPARIN SODIUM 40 MG/0.4 ML SYRINGE SQ SCH (20:51)
[2016-03-27 08:00] VITALS: BP 118/65; PULSE 94; RESP 16; TEMP 97.9; O2SAT 98
[2016-03-27] MEDS: METOCLOPRAMIDE HCL SYRUP 10 MG/10 ML UDC G-TUBE SCH ×2 (08:03→20:46)
[2016-03-27] MEDS: ACETAMINOPHEN 325MG/HYDROcodone 7.5MG/15ML UDC PO PRN ×3 (08:03→20:46)
[2016-03-27] MEDS: ALPRAZolam 0.25 MG TAB G-TUBE PRN ×2 (08:03→16:53)
[2016-03-27] MEDS: levETIRAcetam 500 MG/5 ML UDC TUBE SCH ×2 (08:03→20:46)
[2016-03-27] MEDS: LANSOPRAZOLE SOLUTAB 30 MG TAB NG SCH ×2 (08:03→20:46)
[2016-03-27 08:30] VITALS: O2SAT 98
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
[2016-03-27 19:33] VITALS: O2SAT 98
[2016-03-27 20:00] VITALS: BP 98/70; PULSE 86; RESP 18; TEMP 97.8; O2SAT 98
[2016-03-27] MEDS: ENOXAPARIN SODIUM 40 MG/0.4 ML SYRINGE SQ SCH (20:46)
[2016-03-27] MEDS: TEMAZEPAM 15 MG CAP PO PRN (20:47)
[2016-03-28] MEDS: ACETAMINOPHEN 650 MG/20.3 ML UDC J-TUBE PRN ×2 (00:34→08:26)
[2016-03-28] MEDS: ONDANSETRON ODT 4 MG TAB PO PRN ×2 (00:34→08:27)
[2016-03-28 08:00] VITALS: BP 109/69; PULSE 99; RESP 18; TEMP 96.9; O2SAT 95; O2SAT 97
[2016-03-28] MEDS: METOCLOPRAMIDE HCL SYRUP 10 MG/10 ML UDC G-TUBE SCH ×2 (08:26→21:52)
[2016-03-28] MEDS: levETIRAcetam 500 MG/5 ML UDC TUBE SCH ×2 (08:26→21:52)
[2016-03-28] MEDS: ALPRAZolam 0.25 MG TAB G-TUBE PRN (08:35)
[2016-03-28 12:00] VITALS: BP 112/70; PULSE 95; RESP 20; TEMP 96.5; O2SAT 96
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
[2016-03-28] MEDS: LANSOPRAZOLE SOLUTAB 30 MG TAB NG SCH ×2 (13:02→21:53)
--- NOTE | 2016-03-28 16:35 | RADHPO ---
EXAM DATE/TIME: 03/28/2016 16:26 [place] COMPARISON: CHEST SINGLE AP, February 01, 2016, 5:25. CHEST SINGLE AP, March 03, 2016, 6:12. INDICATIONS : Cough MEDICAL HISTORY : None. SURGICAL HISTORY : None. ENCOUNTER: Subsequent ACUITY: 3 weeks PAIN SCORE: 0/10 LOCATION: Bilateral chest FINDINGS: The cardiac silhouette is enlarged in transverse diameter. There is significant bone loss in left hem ithorax with probable scarring and a left bronchial stent in placeThe right lung is free of acute par enchymal opacity. Biapical pleural thickening is present. CONCLUSION: 1. Chronic probable disease in the left lung with volume loss 2. No acute cardiopulmonary disease. Byron Albright MD on March 28, 2016 at 16:32 Board Certified Radiologist. This report was verified electronically.
[2016-03-28] MEDS ORDERED: GLUCAGON 1 MG/ML VIAL OTHER PRN (18:15)
[2016-03-28] MEDS ORDERED: DEXTROSE 50% IN WATER 50 ML VIAL(D50) IV PRN (18:15)
[2016-03-28 19:45] VITALS: O2SAT 98
[2016-03-28 20:00] VITALS: BP 119/75; PULSE 102; RESP 20; TEMP 96.9; O2SAT 98
[2016-03-28] MEDS: INSULIN ASPART SUPPLEMENTAL SCALE SQ SCH (21:00)
[2016-03-28] MEDS: ACETAMINOPHEN 325MG/HYDROcodone 7.5MG/15ML UDC PO PRN (21:52)
[2016-03-28] MEDS: TEMAZEPAM 15 MG CAP PO PRN (21:59)
[2016-03-29] MEDS: ALPRAZolam 0.25 MG TAB G-TUBE PRN ×2 (01:34→18:21)
[2016-03-29] MEDS ORDERED: SODIUM CHLOR 0.9% 1000 ML INJ 1,000 ML IV SCH (06:00)
[2016-03-29] MEDS: INSULIN ASPART SUPPLEMENTAL SCALE SQ SCH ×4 (06:17→21:00)
[2016-03-29 08:00] VITALS: BP 105/71; PULSE 95; RESP 18; TEMP 98.2; O2SAT 97
[2016-03-29 08:02] VITALS: O2SAT 98
[2016-03-29] MEDS ORDERED: fentaNYL CITRATE 250 MCG/5 ML AMP IV ONE (10:15)
[2016-03-29] MEDS ORDERED: IODIXANOL 320 MG/ML 50 ML VIAL (for RAD SPEC) G-TUBE ONE (10:31)
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
[2016-03-29] MEDS: METOCLOPRAMIDE HCL SYRUP 10 MG/10 ML UDC G-TUBE SCH ×2 (12:31→21:51)
[2016-03-29] MEDS: LANSOPRAZOLE SOLUTAB 30 MG TAB NG SCH ×2 (12:31→21:51)
[2016-03-29] MEDS: levETIRAcetam 500 MG/5 ML UDC TUBE SCH ×2 (12:32→21:51)
[2016-03-29] MEDS: ACETAMINOPHEN 325MG/HYDROcodone 7.5MG/15ML UDC PO PRN ×2 (14:25→21:51)
[2016-03-29] MEDS: ONDANSETRON ODT 4 MG TAB PO PRN (18:21)
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
[2016-03-29 20:00] VITALS: BP 104/64; PULSE 115; RESP 20; TEMP 99.6; O2SAT 95
[2016-03-29 20:30] VITALS: O2SAT 98
--- NOTE | 2016-03-29 20:48 | HHI.GIFU ---
Subjective Remarks asked to see patient again for nausea and abdominal discomfort, he felt that the PEG tube balloon explode and started to have discomfort after that., now feels ok, no complains Objective Vitals I&O Vital Signs Date Time Temp Pulse Resp B/P Pulse Ox O2 Delivery O2 Flow Rate FiO2 03/29/16 15:25 20 03/29/16 08:02 98 Nasal Cannula 1.00 03/29/16 08:00 98.2 95 18 105/71 97 I/O 03/28/16 03/28/16 03/28/16 03/29/16 03/29/16 03/29/16 07:00 15:00 23:00 07:00 15:00 23:00 Intake Total 600 ml 0 ml 970 ml Output Total 200 ml 1100 ml 450 ml Balance 600 ml -200 ml -130 ml -450 ml Intake Oral 0 ml 520 ml Tube Feeding 400 ml 250 ml Tube Irrigant 200 ml Other 200 ml Output Urine Total 200 ml 1100 ml 450 ml # Voids 1 # Bowel Movements 1 0 1 1 Physical Exam HEENT: Normocephalic CHEST: Course breath sounds. CARDIAC: RRR ABDOMEN: Soft, nontender, nondistended, bowel sounds are present in all four quadrants.G/J tube in placen normal site EXTREMITIES: Generalized edema. SKIN: Normal; no rash; no jaundice. 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 Assessment and Plan Plan ASSESSMENT: mal functioning J tube PLAN: - IR to change the tube - Continue with J tube feeding after placement - TF via J tube- tolerating - G tube to LIWS - Prevacid to BID dosing. - Cont. Reglan - Cont. Tariq Haynes MD Mar 29, 2016 20:48
[2016-03-29] MEDS: TEMAZEPAM 15 MG CAP PO PRN (21:50)
[2016-03-30] MEDS: ALPRAZolam 0.25 MG TAB G-TUBE PRN (04:32)
[2016-03-30] MEDS: INSULIN ASPART SUPPLEMENTAL SCALE SQ SCH ×4 (06:37→21:00)
[2016-03-30 07:30] VITALS: O2SAT 95
[2016-03-30 08:00] VITALS: BP 118/68; PULSE 93; RESP 18; TEMP 98.7; O2SAT 97
[2016-03-30] MEDS ORDERED: MAGNESIUM HYDROXIDE SUSP 30 ML CUP J-TUBE PRN (08:45)
[2016-03-30] MEDS ORDERED: DOCUSATE SODIUM 100 MG/10 ML UDC J-TUBE PRN (08:45)
[2016-03-30] MEDS ORDERED: LANSOPRAZOLE SOLUTAB 30 MG TAB JT SCH (10:00)
[2016-03-30] MEDS ORDERED: DOCUSATE SODIUM 50 MG/SENNA 8.6 MG TAB J-TUBE SCH (10:00)
[2016-03-30] MEDS: METOCLOPRAMIDE HCL SYRUP 10 MG/10 ML UDC J-TUBE SCH ×2 (10:38→21:56)
[2016-03-30] MEDS: ACETAMINOPHEN 325MG/HYDROcodone 7.5MG/15ML UDC J-TUBE PRN (10:39)
[2016-03-30] MEDS: levETIRAcetam 500 MG/5 ML UDC JT SCH ×2 (10:39→21:56)
[2016-03-30] MEDS: ONDANSETRON ODT 4 MG TAB PO PRN (15:43)
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
[2016-03-30 20:00] VITALS: BP 116/66; PULSE 96; RESP 16; TEMP 98.2; O2SAT 92
[2016-03-30 20:08] VITALS: O2SAT 97
[2016-03-30] MEDS: LANSOPRAZOLE SOLUTAB 30 MG TAB G-TUBE SCH (21:56)
[2016-03-31] MEDS: TEMAZEPAM 15 MG CAP GT PRN ×2 (01:26→21:39)
[2016-03-31] MEDS: INSULIN ASPART SUPPLEMENTAL SCALE SQ SCH ×4 (06:26→21:00)
[2016-03-31 07:32] LABS: BICARBONATE 30.9 MEQ/L (21.0-32.0)
[2016-03-31 08:00] VITALS: O2SAT 96
[2016-03-31] MEDS: levETIRAcetam 500 MG/5 ML UDC JT SCH ×2 (08:30→21:39)
[2016-03-31] MEDS: DOCUSATE SODIUM 50 MG/SENNA 8.6 MG TAB G-TUBE SCH (08:30)
[2016-03-31] MEDS: ALPRAZolam 0.25 MG TAB G-TUBE PRN (08:30)
[2016-03-31] MEDS: METOCLOPRAMIDE HCL SYRUP 10 MG/10 ML UDC J-TUBE SCH ×2 (08:30→21:39)
[2016-03-31] MEDS: LANSOPRAZOLE SOLUTAB 30 MG TAB G-TUBE SCH ×2 (08:30→21:39)
[2016-03-31] MEDS: ACETAMINOPHEN 325MG/HYDROcodone 7.5MG/15ML UDC J-TUBE PRN ×2 (08:31→16:35)
[2016-03-31 09:29] VITALS: BP 111/68; PULSE 91; RESP 20; TEMP 96.3; O2SAT 96
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
[2016-03-31 20:00] VITALS: BP 106/77; PULSE 88; RESP 18; TEMP 97.2; O2SAT 99
[2016-03-31 20:30] VITALS: O2SAT 99
[2016-03-31] MEDS ORDERED: PROCHLORPERAZINE 25 MG SUPP RECTAL ONE (22:45)
[2016-04-01] MEDS: ALPRAZolam 0.25 MG TAB G-TUBE PRN (01:32)
[2016-04-01] MEDS: ACETAMINOPHEN 325MG/HYDROcodone 7.5MG/15ML UDC J-TUBE PRN ×2 (05:20→14:43)
[2016-04-01] MEDS: INSULIN ASPART SUPPLEMENTAL SCALE SQ SCH (06:36)
[2016-04-01 08:00] VITALS: BP 111/74; PULSE 108; RESP 20; TEMP 96.1; O2SAT 96
[2016-04-01] MEDS: levETIRAcetam 500 MG/5 ML UDC JT SCH ×2 (08:13→20:07)
[2016-04-01] MEDS: METOCLOPRAMIDE HCL SYRUP 10 MG/10 ML UDC J-TUBE SCH ×2 (08:13→21:41)
[2016-04-01] MEDS: DOCUSATE SODIUM 50 MG/SENNA 8.6 MG TAB G-TUBE SCH (08:13)
[2016-04-01] MEDS: LANSOPRAZOLE SOLUTAB 30 MG TAB G-TUBE SCH ×2 (08:13→21:04)
[2016-04-01 09:45] VITALS: O2SAT 98
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
[2016-04-01 11:26] LABS: AUTOMATED NEUTROPHIL # 14.5 TH/MM3 (1.8-7.7); BASOPHIL # 0.6 TH/MM3 (0-0.2); BASOPHIL % 3.3 % (0.0-2.0); EOSINOPHIL # 0.4 TH/MM3 (0-0.4); EOSINOPHIL % 2.1 % (0.0-4.0); HEMATOCRIT 31.9 % (39.0-51.0); LYMPHOCYTE # 2.6 TH/MM3 (1.0-4.8); MEAN CELL VOLUME 93.2 FL (80.0-100.0); MEAN CORPUSCULAR HEMOGLOBIN 30.9 PG (27.0-34.0); MEAN CORPUSCULAR HGB CONC 33.1 % (32.0-36.0); MONO % 4.1 % (0.0-8.0); NEUT % 76.5 % (16.0-70.0); PLATELET COUNT 304 TH/MM3 (150-450); RED BLOOD COUNT 3.42 MIL/MM3 (4.50-5.90); RED CELL DISTRIBUTION WIDTH 15.4 % (11.6-17.2); WHITE BLOOD COUNT 18.9 TH/MM3 (4.0-11.0)
[2016-04-01 11:37] LABS: POTASSIUM 4.4 MEQ/L (3.5-5.1)
[2016-04-01 11:43] LABS: HEMO FLAGS AUTO DIFF
[2016-04-01 11:46] LABS: BICARBONATE 27.7 MEQ/L (21.0-32.0); MAGNESIUM 1.9 MG/DL (1.5-2.5)
[2016-04-01 12:10] LABS: EOSINOPHILS 3 % (0-4); POLYS (SEG NEUTROPHILS) 69 % (16-70); SCAN/DIFF FINAL DIFF MANUAL; WBC DIFF SAMPLE 100
[2016-04-01] MEDS ORDERED: PILL SPLITTER OTHER PRN (15:30)
[2016-04-01 20:00] VITALS: BP 114/76; PULSE 88; RESP 20; TEMP 97.2; O2SAT 96
[2016-04-01] MEDS: busPIRone HCL 5 MG TAB GT SCH (20:07)
[2016-04-01] MEDS: TEMAZEPAM 15 MG CAP GT PRN (21:41)
[2016-04-02 00:28] LABS: BLOOD, URINE NEG (NEG); GLUCOSE,URINE NEG (NEG); KETONE, URINE NEG (NEG); NITRITE,URINE NEG (NEG); PH, URINE 6.5 (5.0-8.5)
[2016-04-02 00:41] LABS: METHOD OF COLLECTION CLEAN CATCH; MUCUS URINE MOD /lpf (OCC); URINE COLOR YELLOW (YELLW/STRAW)
[2016-04-02 00:42] LABS: BACTERIA, URINE OCC /hpf; CALCIUM OXALATE CRYSTALS,URINE OCC /hpf; SQUAMOUS EPITHELIAL CELL URINE 0-5 /hpf (0-5); WBC, URINE 0-2 /hpf (0-5)
[2016-04-02 00:43] LABS: COMMENT (UR) CULT NOT INDICATED; CULTURE IF INDICATED CULT NOT INDICATED
[2016-04-02] MEDS: ONDANSETRON ODT 4 MG TAB PO PRN ×2 (07:29→17:39)
[2016-04-02 08:00] VITALS: BP 126/71; PULSE 95; RESP 18; TEMP 98.1; O2SAT 96
[2016-04-02 08:23] LABS: AUTOMATED NEUTROPHIL # 4.3 TH/MM3 (1.8-7.7); BASOPHIL % 0.6 % (0.0-2.0); EOSINOPHIL # 0.4 TH/MM3 (0-0.4); EOSINOPHIL % 5.5 % (0.0-4.0); HEMATOCRIT 31.7 % (39.0-51.0); HEMO FLAGS DIFF FINAL; LYMPH % 29.4 % (9.0-44.0); LYMPHOCYTE # 2.2 TH/MM3 (1.0-4.8); MEAN CELL VOLUME 94.5 FL (80.0-100.0); MEAN CORPUSCULAR HEMOGLOBIN 31.9 PG (27.0-34.0); MEAN CORPUSCULAR HGB CONC 33.7 % (32.0-36.0); MONO % 6.2 % (0.0-8.0); NEUT % 58.3 % (16.0-70.0); PLATELET COUNT 310 TH/MM3 (150-450); RED BLOOD COUNT 3.36 MIL/MM3 (4.50-5.90); RED CELL DISTRIBUTION WIDTH 15.6 % (11.6-17.2)
[2016-04-02 08:25] VITALS: O2SAT 96
[2016-04-02 08:28] LABS: WHITE BLOOD COUNT 7.4 TH/MM3 (4.0-11.0)
[2016-04-02] MEDS: busPIRone HCL 5 MG TAB GT SCH ×2 (08:42→20:35)
[2016-04-02] MEDS: METOCLOPRAMIDE HCL SYRUP 10 MG/10 ML UDC J-TUBE SCH ×2 (08:42→20:34)
[2016-04-02] MEDS: levETIRAcetam 500 MG/5 ML UDC JT SCH ×2 (08:42→20:34)
[2016-04-02] MEDS: ACETAMINOPHEN 325MG/HYDROcodone 7.5MG/15ML UDC J-TUBE PRN ×2 (08:42→15:48)
[2016-04-02] MEDS: DOCUSATE SODIUM 50 MG/SENNA 8.6 MG TAB G-TUBE SCH (08:42)
[2016-04-02] MEDS: LANSOPRAZOLE SOLUTAB 30 MG TAB G-TUBE SCH ×2 (08:42→20:34)
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
[2016-04-02 20:00] VITALS: BP 132/79; PULSE 101; RESP 17; TEMP 98.6; O2SAT 99
[2016-04-02 20:15] VITALS: O2SAT 98
[2016-04-02] MEDS: TEMAZEPAM 15 MG CAP GT PRN (20:35)
[2016-04-03] MEDS: ACETAMINOPHEN 325MG/HYDROcodone 7.5MG/15ML UDC J-TUBE PRN ×3 (01:16→15:32)
[2016-04-03 07:47] VITALS: O2SAT 98
[2016-04-03 08:53] VITALS: BP 99/64; PULSE 97; RESP 18; TEMP 95.9; O2SAT 98
[2016-04-03] MEDS: DOCUSATE SODIUM 50 MG/SENNA 8.6 MG TAB G-TUBE SCH (09:00)
[2016-04-03] MEDS: levETIRAcetam 500 MG/5 ML UDC JT SCH ×2 (09:03→21:00)
[2016-04-03] MEDS: busPIRone HCL 5 MG TAB GT SCH ×2 (09:04→21:00)
[2016-04-03] MEDS: METOCLOPRAMIDE HCL SYRUP 10 MG/10 ML UDC J-TUBE SCH ×2 (09:04→21:00)
[2016-04-03] MEDS: LANSOPRAZOLE SOLUTAB 30 MG TAB G-TUBE SCH ×2 (09:04→21:00)
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
[2016-04-03 20:00] VITALS: BP 120/87; PULSE 94; RESP 19; TEMP 98; O2SAT 94
[2016-04-04 08:00] VITALS: BP 127/68; PULSE 103; RESP 18; TEMP 98.7; O2SAT 96; O2SAT 97
[2016-04-04] MEDS: LANSOPRAZOLE SOLUTAB 30 MG TAB G-TUBE SCH ×2 (08:11→20:28)
[2016-04-04] MEDS: busPIRone HCL 5 MG TAB GT SCH ×2 (08:12→20:30)
[2016-04-04] MEDS: DOCUSATE SODIUM 50 MG/SENNA 8.6 MG TAB G-TUBE SCH (08:13)
[2016-04-04] MEDS: levETIRAcetam 500 MG/5 ML UDC JT SCH ×2 (08:14→20:31)
[2016-04-04] MEDS: METOCLOPRAMIDE HCL SYRUP 10 MG/10 ML UDC J-TUBE SCH ×2 (08:14→20:31)
[2016-04-04] MEDS: ACETAMINOPHEN 325MG/HYDROcodone 7.5MG/15ML UDC J-TUBE PRN ×2 (08:20→22:51)
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
[2016-04-04] MEDS: ACETAMINOPHEN 650 MG/20.3 ML UDC J-TUBE PRN (11:57)
[2016-04-04 20:16] VITALS: BP 122/69; PULSE 98; RESP 18; TEMP 98.3; O2SAT 97
[2016-04-04 20:30] VITALS: O2SAT 97
[2016-04-04] MEDS: ENOXAPARIN SODIUM 40 MG/0.4 ML SYRINGE SQ SCH (20:31)
[2016-04-04 22:30] VITALS: O2SAT 95
[2016-04-04] MEDS: TEMAZEPAM 15 MG CAP GT PRN (22:43)
[2016-04-05 08:00] VITALS: BP 123/74; PULSE 99; RESP 17; TEMP 97.4; O2SAT 93; O2SAT 94
[2016-04-05] MEDS: LANSOPRAZOLE SOLUTAB 30 MG TAB G-TUBE SCH ×2 (08:21→21:29)
[2016-04-05] MEDS: METOCLOPRAMIDE HCL SYRUP 10 MG/10 ML UDC J-TUBE SCH ×2 (08:22→21:31)
[2016-04-05] MEDS: DOCUSATE SODIUM 50 MG/SENNA 8.6 MG TAB G-TUBE SCH (08:22)
[2016-04-05] MEDS: busPIRone HCL 5 MG TAB GT SCH ×2 (08:22→21:28)
[2016-04-05] MEDS: levETIRAcetam 500 MG/5 ML UDC JT SCH ×2 (08:22→21:32)
[2016-04-05] MEDS: ACETAMINOPHEN 325MG/HYDROcodone 7.5MG/15ML UDC J-TUBE PRN ×2 (08:34→18:08)
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
[2016-04-05 19:45] VITALS: O2SAT 95
[2016-04-05 20:00] VITALS: BP 120/82; PULSE 102; RESP 20; TEMP 98.3; O2SAT 93
[2016-04-05] MEDS: ENOXAPARIN SODIUM 40 MG/0.4 ML SYRINGE SQ SCH (21:30)
[2016-04-05] MEDS: TEMAZEPAM 15 MG CAP GT PRN (22:19)
[2016-04-06] MEDS: ACETAMINOPHEN 325MG/HYDROcodone 7.5MG/15ML UDC J-TUBE PRN ×2 (06:40→15:09)
[2016-04-06 08:00] VITALS: BP 101/66; PULSE 72; RESP 16; TEMP 98.4; O2SAT 94; O2SAT 96
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
[2016-04-06] MEDS: levETIRAcetam 500 MG/5 ML UDC JT SCH ×2 (11:04→21:33)
[2016-04-06] MEDS: METOCLOPRAMIDE HCL SYRUP 10 MG/10 ML UDC J-TUBE SCH ×2 (11:04→21:33)
[2016-04-06] MEDS: DOCUSATE SODIUM 50 MG/SENNA 8.6 MG TAB G-TUBE SCH (11:04)
[2016-04-06] MEDS: busPIRone HCL 5 MG TAB GT SCH ×2 (11:05→21:33)
[2016-04-06] MEDS: LANSOPRAZOLE SOLUTAB 30 MG TAB G-TUBE SCH ×2 (11:06→21:33)
--- NOTE | 2016-04-06 15:49 | HHI.HCPN ---
Met with Mr. Pavon in his room at [facility]. Now able to verbalize. He is currently sitting in bedside recliner, reports he just got back from working with physical therapy and enjoyed the time outside. Mr. Pavon is alert, oriented, and able to make his needs known. Verbalizes he has pain, chronic in back. States medication does help when administered but struggles with pain constantly. Does present with some grimacing during movements, repositioning himself. Nurse in to provide medication during my visit. He is pleasant throughout conversation. Very tearful while discussing his current social issues (recently served additional papers for court hearing on April 25). Offered emotional support. Allowed time for life reflection and discussion. Normalized feelings. Not easily redirected from conversation. Verbalizes some feelings of depression and hopelessness. May benefit from psych eval for depression? Denies any thoughts of suicide verbalizing he knows he made a mistake and would do anything to speak with his children and to explain. Medically he reports things are going well. Denies any questions or concerns at this time. Palliative care will continue to follow throughout hospitalization. SW will follow for emotional and social support. Mindi Anderson MSW, DRAFTER (CAD) [employer] Apr 06, 2016 15:49
[2016-04-06 20:00] VITALS: BP 112/77; PULSE 101; RESP 20; TEMP 98.3; O2SAT 94
[2016-04-06 21:15] VITALS: O2SAT 95
[2016-04-06] MEDS: TEMAZEPAM 15 MG CAP GT PRN (21:33)
[2016-04-06] MEDS: ALPRAZolam 0.25 MG TAB G-TUBE PRN (21:33)
[2016-04-06] MEDS: ENOXAPARIN SODIUM 40 MG/0.4 ML SYRINGE SQ SCH (21:33)
[2016-04-07] VITALS: BP 110/78; PULSE 98; RESP 20; TEMP 97.6; O2SAT 93
[2016-04-07] MEDS: ALPRAZolam 0.25 MG TAB G-TUBE PRN ×2 (04:52→21:12)
[2016-04-07 08:05] VITALS: BP 114/85; PULSE 103; RESP 18; TEMP 98.2; O2SAT 95
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
[2016-04-07] MEDS: busPIRone HCL 5 MG TAB GT SCH ×2 (09:04→20:59)
[2016-04-07] MEDS: DOCUSATE SODIUM 50 MG/SENNA 8.6 MG TAB G-TUBE SCH (09:04)
[2016-04-07] MEDS: METOCLOPRAMIDE HCL SYRUP 10 MG/10 ML UDC J-TUBE SCH ×2 (09:05→20:58)
[2016-04-07] MEDS: levETIRAcetam 500 MG/5 ML UDC JT SCH ×2 (09:06→20:58)
[2016-04-07] MEDS: LANSOPRAZOLE SOLUTAB 30 MG TAB G-TUBE SCH ×2 (09:06→20:59)
[2016-04-07] MEDS: ACETAMINOPHEN 325MG/HYDROcodone 7.5MG/15ML UDC J-TUBE PRN ×2 (13:51→20:58)
[2016-04-07 18:22] VITALS: O2SAT 95
[2016-04-07 20:00] VITALS: BP 103/71; PULSE 98; RESP 16; TEMP 98.1; O2SAT 94
[2016-04-07 20:20] VITALS: O2SAT 94
[2016-04-07] MEDS: ENOXAPARIN SODIUM 40 MG/0.4 ML SYRINGE SQ SCH (20:59)
[2016-04-07] MEDS: TEMAZEPAM 15 MG CAP GT PRN (21:07)
[2016-04-08] MEDS: ACETAMINOPHEN 325MG/HYDROcodone 7.5MG/15ML UDC J-TUBE PRN ×3 (05:50→21:56)
[2016-04-08] MEDS: ALPRAZolam 0.25 MG TAB G-TUBE PRN ×2 (05:50→22:03)
[2016-04-08 08:05] VITALS: BP 104/78; PULSE 98; RESP 16; TEMP 98.1; O2SAT 94
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
[2016-04-08] MEDS: LANSOPRAZOLE SOLUTAB 30 MG TAB G-TUBE SCH ×2 (09:01→21:50)
[2016-04-08] MEDS: DOCUSATE SODIUM 50 MG/SENNA 8.6 MG TAB G-TUBE SCH (09:01)
[2016-04-08] MEDS: levETIRAcetam 500 MG/5 ML UDC JT SCH ×2 (09:01→21:49)
[2016-04-08] MEDS: busPIRone HCL 5 MG TAB GT SCH ×2 (09:13→21:49)
[2016-04-08] MEDS: METOCLOPRAMIDE HCL SYRUP 10 MG/10 ML UDC J-TUBE SCH ×2 (09:16→21:49)
[2016-04-08 15:53] VITALS: O2SAT 93
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
[2016-04-08 20:00] VITALS: BP 118/87; PULSE 95; RESP 18; TEMP 98.3; O2SAT 93; O2SAT 94
[2016-04-08] MEDS: TEMAZEPAM 15 MG CAP GT PRN (21:51)
[2016-04-08] MEDS: ENOXAPARIN SODIUM 40 MG/0.4 ML SYRINGE SQ SCH (21:51)
[2016-04-09 08:00] VITALS: BP_SYST 115; BP_SYST 138; BP_DIAS 65; BP_DIAS 68; PULSE 80; PULSE 94; RESP 18; TEMP 98.4; TEMP 98.5; O2SAT 95; O2SAT 96
[2016-04-09 08:14] VITALS: O2SAT 93
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
[2016-04-09] MEDS: DOCUSATE SODIUM 50 MG/SENNA 8.6 MG TAB G-TUBE SCH (09:00)
[2016-04-09] MEDS: ACETAMINOPHEN 325MG/HYDROcodone 7.5MG/15ML UDC J-TUBE PRN ×2 (09:29→17:58)
[2016-04-09] MEDS: METOCLOPRAMIDE HCL SYRUP 10 MG/10 ML UDC J-TUBE SCH ×2 (09:29→21:57)
[2016-04-09] MEDS: levETIRAcetam 500 MG/5 ML UDC JT SCH ×2 (09:29→21:57)
[2016-04-09] MEDS: ALPRAZolam 0.25 MG TAB G-TUBE PRN ×2 (09:29→21:56)
[2016-04-09] MEDS: LANSOPRAZOLE SOLUTAB 30 MG TAB G-TUBE SCH ×2 (09:29→21:57)
[2016-04-09] MEDS: busPIRone HCL 5 MG TAB GT SCH ×2 (09:30→21:55)
--- NOTE | 2016-04-09 13:36 | RADHPO ---
EXAM DATE/TIME: 04/09/2016 12:37 [facility] COMPARISON: ESOPHAGRAM, February 10, 2016, 15:44. INDICATIONS : Evaluate esophago- branchial fistula. Coughing when drinking liquids. FLUORO TIME: 1.1 minutes IMAGE COUNT: 11 CONTRAST: 1. Liquid E-Z Paque Barium Sulfate (60% w/v, 41% w.w) MEDICAL HISTORY : Hiatal hernia. Gastroesophageal reflux disease. Hypertension. SURGICAL HISTORY : Hernia repair. Donte fundoplication. Esophagial stent. ENCOUNTER: Subsequent ACUITY: 4 - 6 months PAIN SCORE: 0/10 LOCATION: Esophagus. FINDINGS: There is immediate significant flow of ingested barium from the esophagus into the left mainstem bron chus, appearance virtually identical to that seen on the January swallowing exam. CONCLUSION: Persistent tracheoesophageal fistula Martinez Mccoy MD Board Certified Radiologist. This report was verified electronically.
[2016-04-09] MEDS: ACETAMINOPHEN 650 MG/20.3 ML UDC J-TUBE PRN (13:53)
[2016-04-09 18:00] VITALS: BP 99/69; PULSE 93; RESP 20; TEMP 97.8; O2SAT 96
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
--- NOTE | 2016-04-09 21:07 | HHI.GIFU ---
Subjective Remarks doing ok, he said he can tolerate solid but not liquid, X ray showed open fistula in mid esophagus Objective Vitals I&O Vital Signs Date Time Temp Pulse Resp B/P Pulse Ox O2 Delivery O2 Flow Rate FiO2 04/09/16 18:00 97.8 93 20 99/69 96 04/09/16 15:36 18 04/09/16 10:48 18 04/09/16 08:14 93 21 04/09/16 08:00 98.5 80 18 138/68 95 04/09/16 08:00 98.4 94 18 115/65 96 I/O 04/08/16 04/08/16 04/08/16 04/09/16 04/09/16 04/09/16 07:00 15:00 23:00 07:00 15:00 23:00 Intake Total 700 ml 240 ml 360 ml 750 ml Output Total 300 ml 300 ml Balance 400 ml 240 ml 60 ml 750 ml Intake Oral 360 ml 750 ml Tube Feeding 500 ml Other 200 ml 240 ml Output Urine Total 300 ml 300 ml # Voids 1 2 # Bowel Movements 1 0 Laboratory Laboratory Tests Test 04/09/16 10:10 Prealbumin 22 Physical Exam HEENT: Normocephalic CHEST: Clear to auscultation CARDIAC: RRR ABDOMEN: Soft, nontender, nondistended, bowel sounds are present in all four quadrants.G/J tube in placen normal site EXTREMITIES: Generalized edema. SKIN: Normal; no rash; no jaundice. SKIN GRADER: Awake, A/O x 3 . Assessment and Plan Plan ASSESSMENT: Known history of esophagobronchial fistula still open on xray PLAN: - NPO -pursue esophageal stenting we will transfer to [facility] for that Tariq Whitaker MD Apr 09, 2016 21:06
[2016-04-09] MEDS: TEMAZEPAM 15 MG CAP GT PRN (21:56)
[2016-04-09] MEDS: ENOXAPARIN SODIUM 40 MG/0.4 ML SYRINGE SQ SCH (21:57)
[2016-04-09 22:00] VITALS: O2SAT 93
[2016-04-10] MEDS: ALPRAZolam 0.25 MG TAB G-TUBE PRN ×2 (05:14→13:04)
[2016-04-10] MEDS: ACETAMINOPHEN 325MG/HYDROcodone 7.5MG/15ML UDC J-TUBE PRN ×3 (05:15→21:52)
[2016-04-10 07:30] VITALS: O2SAT 94
[2016-04-10] MEDS: DOCUSATE SODIUM 50 MG/SENNA 8.6 MG TAB G-TUBE SCH (09:00)
--- NOTE | 2016-04-10 09:19 | HHI.GIFU ---
Subjective Remarks doing ok, no new complains NPO Objective Vitals I&O Vital Signs Date Time Temp Pulse Resp B/P Pulse Ox O2 Delivery O2 Flow Rate FiO2 04/10/16 07:30 94 21 04/10/16 07:30 18 04/09/16 22:00 93 21 04/09/16 18:00 97.8 93 20 99/69 96 04/09/16 15:36 18 I/O 04/09/16 04/09/16 04/09/16 04/10/16 04/10/16 04/10/16 07:00 15:00 23:00 07:00 15:00 23:00 Intake Total 360 ml 850 ml 100 ml Output Total 300 ml 300 ml Balance 60 ml 850 ml -200 ml Intake Oral 360 ml 750 ml Other 100 ml 100 ml Output Urine Total 300 ml 300 ml # Voids 2 # Bowel Movements 0 Laboratory Laboratory Tests Test 04/09/16 10:10 Prealbumin 22 Physical Exam HEENT: Normocephalic CHEST: Clear to auscultation CARDIAC: RRR ABDOMEN: Soft, nontender, nondistended, bowel sounds are present in all four quadrants.G/J tube in place normal site EXTREMITIES: Generalized edema. SKIN: Normal; no rash; no jaundice. DIRECTOR LIFE SCIENCES: Awake, A/O x 3 . Assessment and Plan Plan ASSESSMENT: Known history of esophagobronchial fistula still open on xray PLAN: - NPO -pursue esophageal stenting we will transfer today will get covered stent by Tariq Sam MD Apr 10, 2016 09:19
[2016-04-10 09:41] VITALS: BP 105/65; PULSE 96; RESP 20; TEMP 97.2; O2SAT 92
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
[2016-04-10] MEDS: METOCLOPRAMIDE HCL SYRUP 10 MG/10 ML UDC J-TUBE SCH ×2 (11:35→21:53)
[2016-04-10] MEDS: levETIRAcetam 500 MG/5 ML UDC JT SCH ×2 (11:35→21:53)
[2016-04-10] MEDS: ACETAMINOPHEN 650 MG/20.3 ML UDC J-TUBE PRN (11:35)
[2016-04-10] MEDS: LANSOPRAZOLE SOLUTAB 30 MG TAB G-TUBE SCH ×2 (11:35→21:54)
[2016-04-10] MEDS: busPIRone HCL 5 MG TAB GT SCH ×2 (11:35→21:54)
[2016-04-10 20:00] VITALS: BP 116/80; PULSE 91; RESP 18; TEMP 98.5; O2SAT 95
[2016-04-10] MEDS: TEMAZEPAM 15 MG CAP GT PRN (21:50)
[2016-04-10] MEDS: ENOXAPARIN SODIUM 40 MG/0.4 ML SYRINGE SQ SCH (21:51)
[2016-04-11] MEDS: ACETAMINOPHEN 325MG/HYDROcodone 7.5MG/15ML UDC J-TUBE PRN ×4 (05:59→23:42)
[2016-04-11] MEDS: DOCUSATE SODIUM 50 MG/SENNA 8.6 MG TAB G-TUBE SCH (09:00)
[2016-04-11] MEDS: levETIRAcetam 500 MG/5 ML UDC JT SCH ×2 (09:00→20:19)
[2016-04-11] MEDS: LANSOPRAZOLE SOLUTAB 30 MG TAB G-TUBE SCH ×2 (09:00→20:19)
[2016-04-11] MEDS: busPIRone HCL 5 MG TAB GT SCH ×2 (09:00→20:19)
[2016-04-11] MEDS: METOCLOPRAMIDE HCL SYRUP 10 MG/10 ML UDC J-TUBE SCH ×2 (09:00→20:19)
[2016-04-11 09:02] VITALS: BP 111/80; PULSE 91; RESP 20; TEMP 98.1; O2SAT 97
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
[2016-04-11] MEDS ORDERED: RESP: ALBUTEROL 2.5 MG/IPRATROPIUM 0.5 MG NEB (PRN) NEB (10:45)
[2016-04-11] MEDS: LACTATED RINGER'S 1000 ML IV SCH (12:00)
[2016-04-11] MEDS ORDERED: METOPROLOL TARTRATE 25 MG TAB PO PRN (12:00)
[2016-04-11] MEDS ORDERED: INSULIN HUMAN REGULAR 1,000 UNITS/10 ML VIAL SQ PRN (12:00)
[2016-04-11] MEDS: SODIUM CHLORID 0.9% 500 ML IV SCH (12:00)
[2016-04-11 12:04] LABS: AUTOMATED NEUTROPHIL # 5.4 TH/MM3 (1.8-7.7); BASOPHIL % 0.5 % (0.0-2.0); EOSINOPHIL # 0.1 TH/MM3 (0-0.4); HEMO FLAGS DIFF FINAL; LYMPH % 20.4 % (9.0-44.0); LYMPHOCYTE # 1.5 TH/MM3 (1.0-4.8); MEAN CELL VOLUME 93.4 FL (80.0-100.0); MEAN CORPUSCULAR HEMOGLOBIN 30.7 PG (27.0-34.0); MEAN CORPUSCULAR HGB CONC 32.8 % (32.0-36.0); MONO % 5.2 % (0.0-8.0); NEUT % 71.9 % (16.0-70.0); PLATELET COUNT 278 TH/MM3 (150-450); RED BLOOD COUNT 3.53 MIL/MM3 (4.50-5.90); RED CELL DISTRIBUTION WIDTH 15.9 % (11.6-17.2); WHITE BLOOD COUNT 7.6 TH/MM3 (4.0-11.0)
[2016-04-11] MEDS ORDERED: MIDAZOLAM HCL 2 MG/2 ML VIAL ONE (12:21)
[2016-04-11] MEDS ORDERED: ONDANSETRON HCL 4 MG/2 ML VIAL IV PUSH ONE (13:00)
[2016-04-11] MEDS ORDERED: PROPOFOL 200 MG/20 ML AMP IV ONE (13:00)
[2016-04-11] MEDS ORDERED: DO NOT ADM ANY ANTICOAGULANT DRUGS XX PRN (13:58)
[2016-04-11] MEDS ORDERED: *ONDANSETRON 4 MG VIAL PERIprocedural Use ONLY ONE (14:17)
[2016-04-11] MEDS ORDERED: *morphine SULFATE 8 MG/ML PERIprocedure ONLY ONE ×2 (14:31→14:44)
--- NOTE | 2016-04-11 14:41 | RADRPT ---
EXAM DATE/TIME: 04/11/2016 13:22 [facility] COMPARISON: ESOPHAGRAM, April 09, 2016, 12:37. INDICATIONS : Esophageal stent placement. FLUORO TIME: 2.50 minutes IMAGE COUNT: 1 CONTRAST: Instilled by Ordering Physician MEDICAL HISTORY : Unavailable. SURGICAL HISTORY : Unavailable. ENCOUNTER: Initial ACUITY: 4 - 6 months PAIN SCORE: Non-responsive. LOCATION: chest FINDINGS: Single oblique view of the chest demonstrates interval placement of an esophageal stent. The stent wa s placed across a mid esophageal stricture beginning just below the level of the sherrie. CONCLUSION: Esophageal stent identified in place for treatment of an esophageal stricture and fistula. David Dela Cruz MD on April 11, 2016 at 14:36 Board Certified Radiologist. This report was verified electronically.
[2016-04-11 16:00] VITALS: O2SAT 94
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
[2016-04-11] MEDS ORDERED: MIDAZOLAM HCL 2 MG/2 ML VIAL IV ONE (16:40)
--- NOTE | 2016-04-11 17:15 | RADHPO ---
EXAM DATE/TIME: 04/11/2016 16:45 [facility] COMPARISON: CHEST SINGLE AP, March 28, 2016, 16:26. INDICATIONS : Right sided chest pain starting today MEDICAL HISTORY : Hypertension. TE Fistula SURGICAL HISTORY : Peg tube, left bronchial stent, Esophageal stent. ENCOUNTER: Initial ACUITY: 1 day PAIN SCORE: 10/10 LOCATION: Right chest FINDINGS: The patient has an esophageal stent and left bronchial stent. The right lung is reasonably clear. A ir-space disease is seen in the left base. Heart and pulmonary vascularity are normal. Pleural thic kening is seen in the left apex. CONCLUSION: Following placement of esophageal stent chest is stable from 03/28/2016. Chi Lloyd MD FACR on April 11, 2016 at 17:10 Board Certified Radiologist. This report was verified electronically.
[2016-04-11] MEDS ORDERED: MORPHINE SULFATE 4 MG/ML INJ IV PUSH PRN (17:30)
[2016-04-11 17:35] LABS: CREATINE KINASE 21 U/L (39-308)
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
[2016-04-11 19:55] VITALS: O2SAT 94
[2016-04-11 20:00] VITALS: BP 120/75; PULSE 98; RESP 18; TEMP 98.3; O2SAT 95
[2016-04-11] MEDS: TEMAZEPAM 15 MG CAP GT PRN (20:33)
[2016-04-11] MEDS: ENOXAPARIN SODIUM 40 MG/0.4 ML SYRINGE SQ SCH (20:33)
[2016-04-11] MEDS: ALPRAZolam 0.25 MG TAB G-TUBE PRN (20:33)
[2016-04-11] MEDS: ACETAMINOPHEN 650 MG/20.3 ML UDC J-TUBE PRN (22:42)
[2016-04-12] MEDS: SODIUM CHLORID 0.9% 500 ML IV SCH (04:40)
[2016-04-12] MEDS: ALPRAZolam 0.25 MG TAB G-TUBE PRN ×2 (05:53→16:54)
[2016-04-12 08:00] VITALS: BP 138/80; PULSE 80; RESP 16; TEMP 98.3; O2SAT 95
[2016-04-12 08:30] VITALS: O2SAT 94
[2016-04-12] MEDS: METOCLOPRAMIDE HCL SYRUP 10 MG/10 ML UDC J-TUBE SCH ×2 (09:40→20:59)
[2016-04-12] MEDS: levETIRAcetam 500 MG/5 ML UDC JT SCH ×2 (09:40→20:59)
[2016-04-12] MEDS: DOCUSATE SODIUM 50 MG/SENNA 8.6 MG TAB G-TUBE SCH (09:40)
[2016-04-12] MEDS: LANSOPRAZOLE SOLUTAB 30 MG TAB G-TUBE SCH ×2 (09:40→20:59)
[2016-04-12] MEDS: busPIRone HCL 5 MG TAB GT SCH ×2 (09:40→20:59)
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
[2016-04-12] MEDS: LACTATED RINGER'S 1000 ML IV SCH (12:00)
--- NOTE | 2016-04-12 13:09 | HHI.GIFU ---
GI Follow-up Note Consult Follow-up Subjective: Patient laying in bed comfortably, coughing. S/ p covered stent yesterday, on clear liquid, has some chest pain Objective: PHYSICAL EXAMINATION: Vitals signs stable No fever Vital Signs Date Time Temp Pulse Resp B/P Pulse Ox O2 Delivery O2 Flow Rate FiO2 04/12/16 08:30 94 21 04/12/16 08:00 98.3 80 16 138/80 95 HEENT: Pupils round and reactive to light; normocephalic; atraumatic; no jaundice. Throat is clear. NECK: Neck is supple, no JVD, no lymphadenopathy. CHEST: Chest is clear to auscultation and percussion. CARDIAC: Regular rate and rhythm with no murmur gallop or rubs. ABDOMEN: Soft, nondistended, nontender; no hepatosplenomegaly; bowel sounds are present in all four quadrants, peg in place EXTREMITIES: No clubbing, cyanosis, or edema. SKIN: Normal; no rash; no jaundice. EXHIBIT ELECTRICIAN: No focal deficits; alert and oriented times three. Available Data (labs, X- Rays, Procedues) : Laboratory Tests Test 04/11/16 04/11/16 11:45 16:50 White Blood Count 7.6 TH/MM3 Red Blood Count 3.53 MIL/MM3 Hemoglobin 10.8 GM/DL Hematocrit 33.0 % Mean Corpuscular Volume 93.4 FL Mean Corpuscular Hemoglobin 30.7 PG Mean Corpuscular Hemoglobin 32.8 % Concent Red Cell Distribution Width 15.9 % Platelet Count 278 TH/MM3 Mean Platelet Volume 7.3 FL Neutrophils (%) (Auto) 71.9 % Lymphocytes (%) (Auto) 20.4 % Monocytes (%) (Auto) 5.2 % Eosinophils (%) (Auto) 2.0 % Basophils (%) (Auto) 0.5 % Neutrophils # (Auto) 5.4 TH/MM3 Lymphocytes # (Auto) 1.5 TH/MM3 Monocytes # (Auto) 0.4 TH/MM3 Eosinophils # (Auto) 0.1 TH/MM3 Basophils # (Auto) 0.0 TH/MM3 CBC Comment DIFF FINAL Differential Comment Total Creatine Kinase 21 U/L Troponin I LESS THAN 0.02 NG/ML ASSESSMENT/PLAN: tracheoesophageal fistulae -s/p esophageal stent weight loss, deconditioning Recommendations: continue peg tube feeding ppi we may repeat esophageal x-ray in am It was a pleasure seeing Jung Pavon. Thank you for this consult. Entered by: Norma Delgado MD Apr 12, 2016 13:09
--- NOTE | 2016-04-12 14:03 | EKG ---
Date Performed: 04/11/2016 Time Performed: 16:46:50 PTAGE: 75 years EKG: Sinus tachycardia with PVC(s). Inferior/lateral ST-T changes are nonspecific Borderline ECG PREVIOUS TRACING : 03/03/2016 07.42 Since previous tracing, no significant change noted DOCTOR: Navarro Delgado Interpretating Date/Time 04/12/2016 13:58:43
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
[2016-04-12] MEDS: ACETAMINOPHEN 325MG/HYDROcodone 7.5MG/15ML UDC J-TUBE PRN (16:47)
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
[2016-04-12 19:58] VITALS: O2SAT 95
[2016-04-12 20:00] VITALS: BP 142/88; PULSE 95; RESP 18; TEMP 99; O2SAT 94
[2016-04-12] MEDS: TEMAZEPAM 15 MG CAP GT PRN (20:59)
[2016-04-12] MEDS: ENOXAPARIN SODIUM 40 MG/0.4 ML SYRINGE SQ SCH (21:19)
[2016-04-13] MEDS: ACETAMINOPHEN 325MG/HYDROcodone 7.5MG/15ML UDC J-TUBE PRN ×3 (02:05→20:13)
[2016-04-13 08:20] VITALS: O2SAT 94
[2016-04-13] MEDS: levETIRAcetam 500 MG/5 ML UDC JT SCH ×2 (09:27→20:13)
[2016-04-13] MEDS: METOCLOPRAMIDE HCL SYRUP 10 MG/10 ML UDC J-TUBE SCH ×2 (09:27→20:13)
[2016-04-13] MEDS: busPIRone HCL 5 MG TAB GT SCH ×2 (09:34→20:14)
[2016-04-13] MEDS: DOCUSATE SODIUM 50 MG/SENNA 8.6 MG TAB G-TUBE SCH (09:34)
[2016-04-13] MEDS: LANSOPRAZOLE SOLUTAB 30 MG TAB G-TUBE SCH ×2 (09:43→20:14)
[2016-04-13 10:30] VITALS: BP 117/72; PULSE 104; RESP 19; TEMP 96.5; O2SAT 94
--- NOTE | 2016-04-13 12:46 | MR ---
cc: ZACHARY VICENTE M.D. DATE: 04/11/2016 PROCEDURE: Electrocardiogram with esophageal wall stent placement for INDICATIONS FOR PROCEDURE Persistent tracheoesophageal fistula in the mid-esophagus. PROCEDURE: After informed consent and explaining the risks of the procedure the patient including bleeding, perforation, risk of stent migration Mr. Pavon placed in the left lateral decubitus position and sedated with the help of anesthesia. The patient was electively intubated for this procedure. Endoscope advanced in the mouth into the esophagus and then into the stomach, G/J tube seen in the stomach, scope withdrawn into the esophagus mid-esophagus area reveals a diverticulum in the mid-esophagus is adjacent to it. There was a fistula with the portion of the of bronchial stent visible in the fistula. Using clips the placement of the stent was marked and a [employer] wall flec covered 23 x 10 mm stent placed in the mid esophageal area. This covered the diverticulum and the fistula.The stent was then secured by using two endoclips in the proximal esophagus and this anchored the stent to the esophagus with the Endo clips. The patient appeared to tolerate the procedure well. The position was verified endoscopically as well as fluoroscopically. IMPRESSION 1. Tracheoesophageal fistula. 2. Esophageal diverticulum. 3. Successful stent placement. RECOMMENDATIONS 1. Postprocedure protocol 2. Full liquid diet, advance slowly as tolerated to stay away from bulky fibrous foods. MD JENNIFER Villa/tiffany /1:50 PM /11:44 AM MARCOS
--- NOTE | 2016-04-13 13:48 | RADHPO ---
EXAM DATE/TIME: 04/13/2016 12:35 [place] COMPARISON: ESOPHAGRAM, April 09, 2016, 12:37. CHEST SINGLE AP, April 11, 2016, 16:45. 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 FLUORO TIME: 3.4 minutes IMAGE COUNT: 23 CONTRAST: 1. Liquid E-Z Paque Barium Sulfate (60% w/v, 41% w.w) MEDICAL HISTORY : Hiatal hernia. Gastroesophageal reflux disease. Hypertension SURGICAL HISTORY : hernia repair, esophageal stent ENCOUNTER: Subsequent ACUITY: 2 days PAIN SCORE: 0/10 LOCATION: esophagus FINDINGS: The patient swallows thin barium liquid without difficulty. An esophageal stent is now present in the mid to distal esophagus. This new stent proximally overlaps with an adjacent tracheobronchial stent which appears to be in the left mainstem bronchus. There is flow of ingested barium through the esoph ageal stent in addition to some filling around the stent. There is persistent passage of barium into a tiny outpouching adjacent to the esophagus which is situated in between the location of the midport ion of the esophageal stent and the distal aspect of the tracheobronchial stent. On repeated swallows , the volume of this extraluminal barium collection does not change significantly. There is very juan le passage of barium into the bronchus on today's study. There is no free flow of ingested barium fro m the esophagus to the bronchus as was noted earlier in the week. CONCLUSION: Esophageal stent appears to be in good position but there is persistent flow of barium around the ale nt and some persistent filling of an esophagobronchial fistula. Magnitude of the leak is dramatically decreased from prior. Martinez Mccoy MD Board Certified Radiologist. This report was verified electronically.
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
--- NOTE | 2016-04-13 18:49 | HHI.GIFU ---
GI Follow-up Note Consult Follow-up Subjective: Patient laying in bed comfortably, feeling better, disappointed that he cannot eat solid foods. He denies any cough when swallows water. Ba swallow noted, discussed with him Objective: PHYSICAL EXAMINATION: Vitals signs stable No fever HEENT: Pupils round and reactive to light; normocephalic; atraumatic; no jaundice. Throat is clear. NECK: Neck is supple, no JVD, no lymphadenopathy. CHEST: Chest is clear to auscultation and percussion. CARDIAC: Regular rate and rhythm with no murmur gallop or rubs. ABDOMEN: Soft, nondistended, nontender; no hepatosplenomegaly; bowel sounds are present in all four quadrants, peg in place EXTREMITIES: No clubbing, cyanosis, or edema. SKIN: Normal; no rash; no jaundice. KENNEL MANAGER: No focal deficits; alert and oriented times three. Available Data (labs, X- Rays, Procedues) : ba swallow noted ASSESSMENT/PLAN: tracheoesophageal fistulae s/p esophageal stent change , improvement in appearance deconditioning Recommendations continue peg tube feeding repeat ba swallow in 1 weeks supportive care It was a pleasure seeing Jung Pavon. Thank you for this consult. Entered by: Norma Delgado MD Apr 13, 2016 18:49
[2016-04-13 20:00] VITALS: BP 153/105; PULSE 102; RESP 20; TEMP 97.2; O2SAT 94
[2016-04-13 20:16] VITALS: O2SAT 97
[2016-04-13] MEDS: ENOXAPARIN SODIUM 40 MG/0.4 ML SYRINGE SQ SCH (20:26)
[2016-04-13] MEDS: ONDANSETRON ODT 4 MG TAB PO PRN (21:29)
[2016-04-13] MEDS: TEMAZEPAM 15 MG CAP GT PRN (21:31)
[2016-04-14] MEDS: ALPRAZolam 0.25 MG TAB G-TUBE PRN (01:29)
[2016-04-14] MEDS: ACETAMINOPHEN 325MG/HYDROcodone 7.5MG/15ML UDC J-TUBE PRN ×3 (06:46→22:18)
[2016-04-14 08:00] VITALS: BP 138/90; PULSE 109; RESP 18; TEMP 97.8; O2SAT 94
[2016-04-14 10:06] VITALS: O2SAT 94
[2016-04-14] MEDS: levETIRAcetam 500 MG/5 ML UDC JT SCH ×2 (10:20→22:20)
[2016-04-14] MEDS: METOCLOPRAMIDE HCL SYRUP 10 MG/10 ML UDC J-TUBE SCH ×2 (10:21→22:20)
[2016-04-14] MEDS: LANSOPRAZOLE SOLUTAB 30 MG TAB G-TUBE SCH ×2 (10:21→22:19)
[2016-04-14] MEDS: DOCUSATE SODIUM 50 MG/SENNA 8.6 MG TAB G-TUBE SCH (10:21)
[2016-04-14] MEDS: busPIRone HCL 5 MG TAB GT SCH ×2 (10:22→22:18)
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
[2016-04-14] MEDS ORDERED: ACETAMINOPHEN 325MG/HYDROcodone 7.5MG/15ML UDC J-TUBE PRN (18:00)
[2016-04-14 20:00] VITALS: BP 120/85; PULSE 100; RESP 18; TEMP 97.2; O2SAT 96
[2016-04-14 20:10] VITALS: O2SAT 95
[2016-04-14] MEDS: ENOXAPARIN SODIUM 40 MG/0.4 ML SYRINGE SQ SCH (22:17)
[2016-04-14] MEDS: TEMAZEPAM 15 MG CAP GT PRN (22:19)
[2016-04-15] MEDS: ACETAMINOPHEN 325MG/HYDROcodone 7.5MG/15ML UDC J-TUBE PRN ×4 (04:55→20:22)
[2016-04-15 08:45] VITALS: BP 121/75; PULSE 90; RESP 20; TEMP 96.3; O2SAT 97
[2016-04-15] MEDS: LANSOPRAZOLE SOLUTAB 30 MG TAB G-TUBE SCH ×2 (08:47→20:23)
[2016-04-15] MEDS: METOCLOPRAMIDE HCL SYRUP 10 MG/10 ML UDC J-TUBE SCH ×2 (08:47→20:23)
[2016-04-15] MEDS: busPIRone HCL 5 MG TAB GT SCH ×2 (08:48→20:23)
[2016-04-15] MEDS: ALPRAZolam 0.25 MG TAB G-TUBE PRN ×3 (08:48→20:23)
[2016-04-15] MEDS: DOCUSATE SODIUM 50 MG/SENNA 8.6 MG TAB G-TUBE SCH (08:48)
[2016-04-15] MEDS: levETIRAcetam 500 MG/5 ML UDC JT SCH ×2 (08:48→20:22)
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
[2016-04-15 20:00] VITALS: BP 129/83; PULSE 96; RESP 19; TEMP 97.3; O2SAT 98
[2016-04-15 20:10] VITALS: O2SAT 98
[2016-04-15] MEDS: TEMAZEPAM 15 MG CAP GT PRN (20:24)
[2016-04-15] MEDS: ENOXAPARIN SODIUM 40 MG/0.4 ML SYRINGE SQ SCH (20:24)
[2016-04-16] MEDS: ACETAMINOPHEN 325MG/HYDROcodone 7.5MG/15ML UDC J-TUBE PRN ×5 (03:26→21:28)
[2016-04-16 08:00] VITALS: BP 125/83; PULSE 96; RESP 16; TEMP 97.8; O2SAT 97
[2016-04-16] MEDS: DOCUSATE SODIUM 50 MG/SENNA 8.6 MG TAB G-TUBE SCH (09:01)
[2016-04-16] MEDS: METOCLOPRAMIDE HCL SYRUP 10 MG/10 ML UDC J-TUBE SCH ×2 (09:01→21:28)
[2016-04-16] MEDS: levETIRAcetam 500 MG/5 ML UDC JT SCH ×2 (09:01→21:28)
[2016-04-16] MEDS: busPIRone HCL 5 MG TAB GT SCH ×2 (09:02→21:28)
[2016-04-16] MEDS: LANSOPRAZOLE SOLUTAB 30 MG TAB G-TUBE SCH ×2 (09:02→21:28)
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
[2016-04-16 14:00] VITALS: O2SAT 94
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
[2016-04-16 20:00] VITALS: BP 133/95; PULSE 76; RESP 18; TEMP 96.1; O2SAT 95
[2016-04-16 20:15] VITALS: O2SAT 95
[2016-04-16] MEDS: TEMAZEPAM 15 MG CAP GT PRN (21:28)
[2016-04-16] MEDS: ENOXAPARIN SODIUM 40 MG/0.4 ML SYRINGE SQ SCH (21:29)
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
[2016-04-17] MEDS: ACETAMINOPHEN 325MG/HYDROcodone 7.5MG/15ML UDC J-TUBE PRN ×4 (02:20→18:36)
[2016-04-17] MEDS: DOCUSATE SODIUM 50 MG/SENNA 8.6 MG TAB G-TUBE SCH (08:45)
[2016-04-17] MEDS: LANSOPRAZOLE SOLUTAB 30 MG TAB G-TUBE SCH ×2 (08:45→20:28)
[2016-04-17] MEDS: busPIRone HCL 5 MG TAB GT SCH (08:46)
[2016-04-17] MEDS: METOCLOPRAMIDE HCL SYRUP 10 MG/10 ML UDC J-TUBE SCH ×2 (08:47→20:28)
[2016-04-17] MEDS: levETIRAcetam 500 MG/5 ML UDC JT SCH ×2 (08:47→20:27)
[2016-04-17 10:00] VITALS: O2SAT 94
[2016-04-17 10:20] VITALS: BP 109/80; PULSE 78; RESP 18; TEMP 96.9; O2SAT 95
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
[2016-04-17] MEDS: busPIRone HCL 10 MG TAB G-TUBE SCH ×2 (12:53→17:15)
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
[2016-04-17 19:38] VITALS: O2SAT 94
[2016-04-17 20:00] VITALS: BP 140/87; PULSE 107; RESP 20; TEMP 98.5; O2SAT 97
[2016-04-17] MEDS: ENOXAPARIN SODIUM 40 MG/0.4 ML SYRINGE SQ SCH (20:28)
[2016-04-17] MEDS: ACETAMINOPHEN 650 MG/20.3 ML UDC J-TUBE PRN (22:17)
[2016-04-17] MEDS: ONDANSETRON ODT 4 MG TAB PO PRN (22:17)
[2016-04-17] MEDS: TEMAZEPAM 15 MG CAP GT PRN (22:17)
[2016-04-18] MEDS: ACETAMINOPHEN 325MG/HYDROcodone 7.5MG/15ML UDC J-TUBE PRN ×3 (02:34→18:35)
[2016-04-18 08:00] VITALS: BP 127/82; PULSE 78; RESP 16; TEMP 97.8; O2SAT 95
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
[2016-04-18] MEDS: levETIRAcetam 500 MG/5 ML UDC JT SCH ×2 (08:41→20:20)
[2016-04-18] MEDS: DOCUSATE SODIUM 50 MG/SENNA 8.6 MG TAB G-TUBE SCH (08:41)
[2016-04-18] MEDS: METOCLOPRAMIDE HCL SYRUP 10 MG/10 ML UDC J-TUBE SCH ×2 (08:41→20:20)
[2016-04-18] MEDS: busPIRone HCL 10 MG TAB G-TUBE SCH ×3 (08:42→17:06)
[2016-04-18] MEDS: LANSOPRAZOLE SOLUTAB 30 MG TAB G-TUBE SCH ×2 (08:42→20:20)
--- NOTE | 2016-04-18 14:31 | HHI.PYPN ---
Subjective Remarks Patient was seen and reevaluated today at bedside in medical floor, chart was reviewed, case discussed with primary medical team, on evaluation patient was calm and cooperative, he was able to open up and explained the reasons of his sad and pessimism. Patient states he has nobody to live for, he doesn't really know what is going to do once he is discharged from the hospital, he has been thinking how difficult it is going to be for him to live in his car with all his medical problems and all the medication that may be he has to take. Patient states that when he tries to be visualized the future he just see "a black hole". He endorses intrusive thoughts of not being able to function and take care of himself. His now has Alzheimer's and is going to live in a snf, he is afraid of ending alone and forgotten. He says that is the only thing that really attach him to this life and given so hope are his 13 years old twins. He reports frequent thoughts, but denies suicidal ideation and plan. He also denies homicidal ideation, denies visual and auditory hallucinations. Patient is fully oriented 3, no paranoia, delusions, agitation, aggressive behavior, gross cognitive impairment is observed. On evaluation patient is visibly depressed, melancholic, and anhedonic with flat affect. Review of Systems Constitutional: COMPLAINS OF: Weight loss Endocrine: DENIES: Heat/cold intolerance, Polydipsia, Polyuria, Polyphagia Ears, nose, mouth, throat: DENIES: Tinnitus, Hearing loss, Vertigo, Nasal discharge, Oral lesions, Throat pain, Hoarseness, Ear Pain, Running Nose, Epistaxis, Sinus Pain, Toothache, Odynophagia Respiratory: DENIES: Apneas, Cough, Snoring, Wheezing, Hemoptysis, Sputum production, Shortness of breath Cardiovascular: DENIES: Chest pain, Palpitations, Syncope, Dyspnea on Exertion , PND, Lower Extremity Edema, Orthopnea, Claudication Gastrointestinal: DENIES: Abdominal pain, Black stools, Bloody stools, Constipation, Diarrhea, Nausea, Vomiting, Difficulty Swallowing, Anorexia Musculoskeletal: DENIES: Joint pain, Muscle aches, Stiffness, Joint Swelling, Back pain, Neck pain Neurologic: DENIES: Abnormal gait, Headache, Localized weakness, Paresthesias, Seizures, Speech Problems, Tremor, Poor Balance Psychiatric: COMPLAINS OF: Depression Objective Alert: Yes [place]: Person, Place, Date, Situation Mood: Depressed Affect: Flat, Other Memory Intact: Immediate, Recent, Comment Hallucinations: Other (does not appear internally stimulated) Delusions: No Delusion Type: Other (no kamari delusions) Suicidal: Ideation (denies SI) Homicidal: Ideation (does not describe any HI) Insight/Judgement Fair Vitals/IOs Vital Signs Date Time Temp Pulse Resp B/P Pulse Ox O2 Delivery O2 Flow Rate FiO2 04/18/16 11:55 21 04/18/16 08:00 97.8 78 16 127/82 95 Intake and Output 04/17/16 04/17/16 04/17/16 07:59 15:59 23:59 Intake Total 1220 ml 0 ml Output Total 450 ml Balance 1220 ml -450 ml Problem List: (1) Suicide attempt ICD Code: T14.91 (2) Major depressive disorder, recurrent episode Assessment & Plan: On reevaluation today the patient presents subjective and objective evidence of depressive symptoms such as anhedonia, hopelessness, helplessness, generalized pessimism, catastrophic thinking, hypoactive movement , frequent suicidal thoughts, he denies suicidal or homicidal ideation. He denies visual and auditory hallucinations. No manic or perceptual disturbances observed or reported. Extensive psychoeducation, support and motivation provided. We'll start Effexor 37.5 mg daily to treat depression, with the plan of increasing to 75 mg on Saturday if patient can tolerate the medication. ICD Code: F33.9 Assessment & Plan Estimated LOS: days Request HC Surrog/Guard Advoc?: Chris Bernstein MD Apr 18, 2016 14:30
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
--- NOTE | 2016-04-18 18:13 | HHI.GIFU ---
Subjective Remarks feels ok, on PEG tube feeding, having some chest discomfort since esophageal stent placed. Objective Vitals I&O Vital Signs Date Time Temp Pulse Resp B/P Pulse Ox O2 Delivery O2 Flow Rate FiO2 04/18/16 11:55 21 04/18/16 08:00 97.8 78 16 127/82 95 04/18/16 03:34 20 04/17/16 23:17 20 04/17/16 20:00 98.5 107 20 140/87 97 04/17/16 19:38 94 21 I/O 04/17/16 04/17/16 04/17/16 04/18/16 04/18/16 04/18/16 07:00 15:00 23:00 07:00 15:00 23:00 Intake Total 480 ml 740 ml 0 ml 240 ml 1756 ml Output Total 450 ml 600 ml Balance 480 ml 740 ml -450 ml -360 ml 1756 ml Intake Oral 480 ml 0 ml 240 ml Tube Feeding 540 ml 1756 ml Tube Irrigant 200 ml Output Urine Total 450 ml 600 ml # Voids 2 3 2 # Bowel Movements 0 0 0 Physical Exam HEENT: Normocephalic CHEST: Clear to auscultation CARDIAC: RRR ABDOMEN: Soft, nontender, nondistended, bowel sounds are present in all four quadrants.G/J tube in place normal site EXTREMITIES: Generalized edema. SKIN: Normal; no rash; no jaundice. SECURITIES BROKER: Awake, A/O x 3 . Assessment and Plan Plan ASSESSMENT: Known history of esophagobronchial fistula still open on xray had stent placed, barium swallow showed some leak around the stent PLAN: - NPO -pursue esophageal swallow eval on Saturday, possible larger stent, continue NPO Tariq Whitaker MD Apr 18, 2016 18:13
[2016-04-18 20:00] VITALS: BP 122/83; PULSE 86; RESP 18; TEMP 96.7; O2SAT 94
[2016-04-18] MEDS: TEMAZEPAM 15 MG CAP GT PRN (20:21)
[2016-04-18] MEDS: ENOXAPARIN SODIUM 40 MG/0.4 ML SYRINGE SQ SCH (21:24)
[2016-04-18] MEDS: ACETAMINOPHEN 650 MG/20.3 ML UDC J-TUBE PRN (21:24)
[2016-04-18] MEDS: ONDANSETRON ODT 4 MG TAB PO PRN (21:24)
[2016-04-19] MEDS: ACETAMINOPHEN 325MG/HYDROcodone 7.5MG/15ML UDC J-TUBE PRN ×3 (02:29→18:03)
[2016-04-19 08:05] VITALS: BP 107/72; PULSE 89; RESP 16; TEMP 97.2; O2SAT 95
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
[2016-04-19] MEDS: busPIRone HCL 10 MG TAB G-TUBE SCH ×2 (10:07→17:17)
[2016-04-19] MEDS: DOCUSATE SODIUM 50 MG/SENNA 8.6 MG TAB G-TUBE SCH (10:07)
[2016-04-19] MEDS: LANSOPRAZOLE SOLUTAB 30 MG TAB G-TUBE SCH ×2 (10:07→21:12)
[2016-04-19] MEDS: METOCLOPRAMIDE HCL SYRUP 10 MG/10 ML UDC J-TUBE SCH ×2 (10:08→21:12)
[2016-04-19] MEDS: levETIRAcetam 500 MG/5 ML UDC JT SCH ×2 (10:08→21:12)
[2016-04-19] MEDS: VENLAFAXINE HCL XR 37.5 MG CAP PO SCH (10:08)
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
[2016-04-19 20:00] VITALS: BP 100/75; PULSE 89; RESP 18; TEMP 97.2; O2SAT 94
[2016-04-19] MEDS: TEMAZEPAM 15 MG CAP GT PRN (21:12)
[2016-04-19] MEDS: ENOXAPARIN SODIUM 40 MG/0.4 ML SYRINGE SQ SCH (21:15)
[2016-04-20] MEDS: ACETAMINOPHEN 325MG/HYDROcodone 7.5MG/15ML UDC J-TUBE PRN ×3 (02:06→18:25)
[2016-04-20] MEDS: ACETAMINOPHEN 650 MG/20.3 ML UDC J-TUBE PRN (06:16)
[2016-04-20 08:00] VITALS: BP 123/70; PULSE 78; RESP 18; TEMP 98.1; O2SAT 95
[2016-04-20] MEDS: DOCUSATE SODIUM 50 MG/SENNA 8.6 MG TAB G-TUBE SCH (09:00)
--- NOTE | 2016-04-20 09:11 | RADHPO ---
EXAM DATE/TIME: 04/20/2016 09:01 [place] COMPARISON: BARIUM SWALLOW, April 13, 2016, 12:35. INDICATIONS : Pain FLUORO TIME: 3 minutes IMAGE COUNT: CONTRAST: 1. Liquid E-Z Paque Barium Sulfate (60% w/v, 41% w.w) MEDICAL HISTORY : esophageal fistula SURGICAL HISTORY : None. ENCOUNTER: Subsequent ACUITY: 4 - 6 months PAIN SCORE: 0/10 LOCATION: Bilateral Esophagus FINDINGS: Comparison is April 13. Patient is noted to have an esophageal stent and a stent in the left verena tem bronchus. On today's examination previous leakage of barium contrast is no longer visualized. Fis nataliya cannot be confirmed on the current examination. Some contrast does go around the stent into the distal esophagus. There is some narrowing of the distal esophagus. CONCLUSION: 1. Previously identified esophagobronchial fistula is no longer visualized on the current exam. Stent remains present in the esophagus and left main stem bronchus. Cam Adams MD Board Certified Radiologist. This report was verified electronically.
[2016-04-20] MEDS: VENLAFAXINE HCL XR 37.5 MG CAP PO SCH (10:46)
[2016-04-20] MEDS: levETIRAcetam 500 MG/5 ML UDC JT SCH ×2 (10:46→21:13)
[2016-04-20] MEDS: LANSOPRAZOLE SOLUTAB 30 MG TAB G-TUBE SCH ×2 (10:46→21:14)
[2016-04-20] MEDS: METOCLOPRAMIDE HCL SYRUP 10 MG/10 ML UDC J-TUBE SCH ×2 (10:46→21:13)
[2016-04-20] MEDS: busPIRone HCL 10 MG TAB G-TUBE SCH ×3 (10:46→18:25)
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
--- NOTE | 2016-04-20 15:46 | HHI.GIFU ---
Subjective Remarks doing ok, had UGIS showing no fistula Objective Vitals I&O Vital Signs Date Time Temp Pulse Resp B/P Pulse Ox O2 Delivery O2 Flow Rate FiO2 04/20/16 12:05 18 04/20/16 08:00 98.1 78 18 123/70 95 04/20/16 07:30 18 04/19/16 20:00 97.2 89 18 100/75 94 I/O 04/19/16 04/19/16 04/19/16 04/20/16 04/20/16 04/20/16 07:00 15:00 23:00 07:00 15:00 23:00 Intake Total 440 ml 744 ml 446 ml Output Total 450 ml Balance 440 ml 744 ml -4 ml Intake Oral 0 ml Tube Feeding 360 ml 744 ml 446 ml Tube Irrigant 80 ml Output Urine Total 450 ml # Voids 2 # Bowel Movements 0 0 Physical Exam HEENT: Normocephalic CHEST: Clear to auscultation CARDIAC: RRR ABDOMEN: Soft, nontender, nondistended, bowel sounds are present in all four quadrants.G/J tube in place normal site EXTREMITIES: Generalized edema. SKIN: Normal; no rash; no jaundice. BARBER: Awake, A/O x 3 . Assessment and Plan Plan ASSESSMENT: Known history of esophagobronchial fistula seems to be closed on today xray had stent placed, barium swallow showed no leak around the stent PLAN: - advance diet slowly Watch for aspiration. Tariq Whitaker MD Apr 20, 2016 15:46
[2016-04-20 20:00] VITALS: BP 100/64; PULSE 93; RESP 16; TEMP 98.1; O2SAT 92
[2016-04-20] MEDS: TEMAZEPAM 15 MG CAP GT PRN (21:13)
[2016-04-20] MEDS: ENOXAPARIN SODIUM 40 MG/0.4 ML SYRINGE SQ SCH (21:14)
[2016-04-21] MEDS: ACETAMINOPHEN 325MG/HYDROcodone 7.5MG/15ML UDC J-TUBE PRN ×3 (02:31→18:11)
[2016-04-21 08:00] VITALS: BP 116/77; PULSE 94; RESP 17; TEMP 97.5; O2SAT 94
[2016-04-21] MEDS: LANSOPRAZOLE SOLUTAB 30 MG TAB G-TUBE SCH ×2 (09:00→21:01)
[2016-04-21] MEDS: busPIRone HCL 10 MG TAB G-TUBE SCH ×3 (09:00→18:12)
[2016-04-21] MEDS: VENLAFAXINE HCL XR 37.5 MG CAP PO SCH (09:00)
[2016-04-21] MEDS: levETIRAcetam 500 MG/5 ML UDC JT SCH ×2 (09:00→21:01)
[2016-04-21] MEDS: METOCLOPRAMIDE HCL SYRUP 10 MG/10 ML UDC J-TUBE SCH ×2 (09:00→21:01)
[2016-04-21] MEDS: DOCUSATE SODIUM 50 MG/SENNA 8.6 MG TAB G-TUBE SCH (09:00)
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
--- NOTE | 2016-04-21 15:11 | HHI.PYPN ---
Subjective Remarks Patient seen and reevaluated today. He was found calm and cooperative, visibly brighter affect, endorses improved mood, motivated to continue medical treatment. He was even making some jokes and smiling often. He denies SI/HI/ VHA. He reports good medication compliant, response and denies side effects. Patient is oriented times 3. He reports increased anxiety sporadically. Review of Systems Constitutional: DENIES: Diaphoretic episodes, Fatigue, Fever, Weight gain, Weight loss, Chills, Dizziness, Change in appetite, Night Sweats Eyes: DENIES: Blurred vision, Diplopia, Eye inflammation, Eye pain, Vision loss , Photosensitivity, Double Vision Ears, nose, mouth, throat: DENIES: Tinnitus, Hearing loss, Vertigo, Nasal discharge, Oral lesions, Throat pain, Hoarseness, Ear Pain, Running Nose, Epistaxis, Sinus Pain, Toothache, Odynophagia Respiratory: DENIES: Apneas, Cough, Snoring, Wheezing, Hemoptysis, Sputum production, Shortness of breath Cardiovascular: DENIES: Chest pain, Palpitations, Syncope, Dyspnea on Exertion , PND, Lower Extremity Edema, Orthopnea, Claudication Genitourinary: DENIES: Sexual dysfunction, Urinary frequency, Urinary incontinence, Urgency, Hematuria, Dysuria, Nocturia, Penile Discharge, Testicular Pain, Testicular Swelling Musculoskeletal: DENIES: Joint pain, Muscle aches, Stiffness, Joint Swelling, Back pain, Neck pain Integumentary: DENIES: Abnormal pigmentation, Nail changes, Pruritus, Rash Hematologic/lymphatic: DENIES: Bruising, Lymphadenopathy Immunologic/allergic: DENIES: Eczema, Urticaria Neurologic: DENIES: Abnormal gait, Headache, Localized weakness, Paresthesias, Seizures, Speech Problems, Tremor, Poor Balance Psychiatric: COMPLAINS OF: Anxiety Objective Alert: Yes Emerson: Person, Place, Date, Situation Mood: Calm Affect: Euthymic, Other Memory Intact: Immediate, Recent, Comment Hallucinations: Other (does not appear internally stimulated) Delusions: No Delusion Type: Other (no kamari delusions) Suicidal: Ideation (denies SI) Homicidal: Ideation (does not describe any HI) Insight/Judgement Improved Vitals/IOs Vital Signs Date Time Temp Pulse Resp B/P Pulse Ox O2 Delivery O2 Flow Rate FiO2 04/21/16 08:00 97.5 94 17 116/77 94 04/18/16 20:00 21 Intake and Output 04/20/16 04/20/16 04/21/16 08:00 16:00 00:00 Intake Total 446 ml 1380 ml Output Total 450 ml 450 ml Balance -4 ml 930 ml Problem List: (1) Suicide attempt ICD Code: T14.91 (2) Major depressive disorder, recurrent episode Assessment & Plan: On reevaluation patient shows a brighter affect, Improved mood, he denies SI, HI, VH, AH, He reports episodic increased anxiety. Will increased Effexor to 75 mg, will increased Buspar to 20 tid. Will follow up. ICD Code: F33.9 Assessment & Plan Estimated LOS: days Request HC Surrog/Guard Advoc?: No Problem Qualifiers (1) Major depressive disorder, recurrent episode: Qualified Code: F33.1 - Moderate episode of recurrent major depressive disorder Chris Mosley MD Apr 21, 2016 15:11
[2016-04-21 20:00] VITALS: BP 121/82; PULSE 89; RESP 18; TEMP 98.7; O2SAT 93
[2016-04-21] MEDS: TEMAZEPAM 15 MG CAP GT PRN (21:01)
[2016-04-21] MEDS: ENOXAPARIN SODIUM 40 MG/0.4 ML SYRINGE SQ SCH (21:01)
[2016-04-22] MEDS: ACETAMINOPHEN 325MG/HYDROcodone 7.5MG/15ML UDC J-TUBE PRN ×3 (02:27→17:49)
[2016-04-22 08:00] VITALS: BP 131/87; PULSE 89; RESP 17; TEMP 97.8; O2SAT 94
[2016-04-22] MEDS: DOCUSATE SODIUM 50 MG/SENNA 8.6 MG TAB G-TUBE SCH (09:00)
[2016-04-22] MEDS: busPIRone HCL 10 MG TAB G-TUBE SCH ×3 (09:17→17:49)
[2016-04-22] MEDS: LANSOPRAZOLE SOLUTAB 30 MG TAB G-TUBE SCH ×2 (09:17→21:25)
[2016-04-22] MEDS: levETIRAcetam 500 MG/5 ML UDC JT SCH ×2 (09:18→21:25)
[2016-04-22] MEDS: METOCLOPRAMIDE HCL SYRUP 10 MG/10 ML UDC J-TUBE SCH ×2 (09:18→21:25)
[2016-04-22] MEDS: VENLAFAXINE HCL XR 37.5 MG CAP PO SCH (09:18)
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
[2016-04-22 20:00] VITALS: BP 116/77; PULSE 93; RESP 16; TEMP 97.1; O2SAT 94
[2016-04-22] MEDS: ENOXAPARIN SODIUM 40 MG/0.4 ML SYRINGE SQ SCH (21:25)
[2016-04-22] MEDS: TEMAZEPAM 15 MG CAP GT PRN (21:30)
[2016-04-23] MEDS: ACETAMINOPHEN 325MG/HYDROcodone 7.5MG/15ML UDC J-TUBE PRN ×3 (02:55→18:10)
[2016-04-23 08:00] VITALS: BP 123/85; PULSE 85; RESP 18; TEMP 96.7; O2SAT 95
[2016-04-23] MEDS: busPIRone HCL 10 MG TAB G-TUBE SCH ×3 (09:10→18:09)
[2016-04-23] MEDS: DOCUSATE SODIUM 50 MG/SENNA 8.6 MG TAB G-TUBE SCH (09:10)
[2016-04-23] MEDS: METOCLOPRAMIDE HCL SYRUP 10 MG/10 ML UDC J-TUBE SCH ×2 (09:10→20:50)
[2016-04-23] MEDS: LANSOPRAZOLE SOLUTAB 30 MG TAB G-TUBE SCH ×2 (09:10→20:51)
[2016-04-23] MEDS: VENLAFAXINE HCL XR 37.5 MG CAP PO SCH (09:11)
[2016-04-23] MEDS: levETIRAcetam 500 MG/5 ML UDC JT SCH ×2 (09:12→20:50)
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
[2016-04-23 20:00] VITALS: BP 116/80; PULSE 95; RESP 20; TEMP 98.3; O2SAT 95
[2016-04-23] MEDS: TEMAZEPAM 15 MG CAP GT PRN (20:55)
[2016-04-23] MEDS: ONDANSETRON ODT 4 MG TAB PO PRN (20:55)
[2016-04-23] MEDS: ENOXAPARIN SODIUM 40 MG/0.4 ML SYRINGE SQ SCH (21:06)
[2016-04-24] MEDS: ACETAMINOPHEN 325MG/HYDROcodone 7.5MG/15ML UDC J-TUBE PRN ×3 (04:43→20:43)
[2016-04-24] MEDS: DOCUSATE SODIUM 50 MG/SENNA 8.6 MG TAB G-TUBE SCH (09:00)
[2016-04-24 09:45] VITALS: BP 135/78; PULSE 92; RESP 20; TEMP 97.8; O2SAT 95
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
[2016-04-24] MEDS: METOCLOPRAMIDE HCL SYRUP 10 MG/10 ML UDC J-TUBE SCH ×2 (10:23→20:42)
[2016-04-24] MEDS: levETIRAcetam 500 MG/5 ML UDC JT SCH ×2 (10:23→20:42)
[2016-04-24] MEDS: busPIRone HCL 10 MG TAB G-TUBE SCH ×3 (10:24→18:08)
[2016-04-24] MEDS: LANSOPRAZOLE SOLUTAB 30 MG TAB G-TUBE SCH ×2 (10:25→20:42)
[2016-04-24] MEDS: VENLAFAXINE HCL XR 37.5 MG CAP PO SCH (10:25)
[2016-04-24 20:00] VITALS: BP 126/87; PULSE 92; RESP 16; TEMP 98.6; O2SAT 95
[2016-04-24] MEDS: ENOXAPARIN SODIUM 40 MG/0.4 ML SYRINGE SQ SCH (20:42)
[2016-04-24] MEDS: TEMAZEPAM 15 MG CAP GT PRN (20:42)
[2016-04-25] MEDS: ACETAMINOPHEN 325MG/HYDROcodone 7.5MG/15ML UDC J-TUBE PRN ×3 (04:20→20:03)
[2016-04-25] MEDS: DOCUSATE SODIUM 50 MG/SENNA 8.6 MG TAB G-TUBE SCH (09:00)
[2016-04-25] MEDS: levETIRAcetam 500 MG/5 ML UDC JT SCH ×2 (09:02→20:03)
[2016-04-25] MEDS: busPIRone HCL 10 MG TAB G-TUBE SCH ×3 (09:02→17:40)
[2016-04-25] MEDS: LANSOPRAZOLE SOLUTAB 30 MG TAB G-TUBE SCH ×2 (09:02→20:07)
[2016-04-25] MEDS: METOCLOPRAMIDE HCL SYRUP 10 MG/10 ML UDC J-TUBE SCH ×2 (09:03→20:03)
[2016-04-25] MEDS: VENLAFAXINE HCL XR 37.5 MG CAP PO SCH (09:03)
[2016-04-25 09:14] VITALS: BP 120/83; PULSE 86; RESP 18; TEMP 97.8; O2SAT 95
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
[2016-04-25 20:00] VITALS: BP 110/74; PULSE 91; RESP 20; TEMP 99; O2SAT 93
[2016-04-25] MEDS: TEMAZEPAM 15 MG CAP GT PRN (20:07)
[2016-04-25] MEDS: ENOXAPARIN SODIUM 40 MG/0.4 ML SYRINGE SQ SCH (20:09)
[2016-04-26] MEDS: ACETAMINOPHEN 325MG/HYDROcodone 7.5MG/15ML UDC J-TUBE PRN ×3 (03:47→21:08)
[2016-04-26 08:00] VITALS: BP 114/88; PULSE 91; RESP 16; TEMP 97.4; O2SAT 94
[2016-04-26] MEDS: VENLAFAXINE HCL XR 37.5 MG CAP PO SCH (09:00)
[2016-04-26] MEDS: METOCLOPRAMIDE HCL SYRUP 10 MG/10 ML UDC J-TUBE SCH ×2 (09:44→21:09)
[2016-04-26] MEDS: levETIRAcetam 500 MG/5 ML UDC JT SCH ×2 (09:44→21:09)
[2016-04-26] MEDS: DOCUSATE SODIUM 50 MG/SENNA 8.6 MG TAB G-TUBE SCH (09:44)
[2016-04-26] MEDS: LANSOPRAZOLE SOLUTAB 30 MG TAB G-TUBE SCH ×2 (09:44→21:08)
[2016-04-26] MEDS: busPIRone HCL 10 MG TAB G-TUBE SCH ×3 (09:45→18:00)
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
[2016-04-26] MEDS ORDERED: SIMETHICONE 80 MG CHEWABLE TAB CHEW ONE (13:00)
[2016-04-26 20:00] VITALS: BP 106/77; PULSE 88; RESP 18; TEMP 98.5; O2SAT 94
[2016-04-26] MEDS: ENOXAPARIN SODIUM 40 MG/0.4 ML SYRINGE SQ SCH (21:07)
[2016-04-26] MEDS: TEMAZEPAM 15 MG CAP GT PRN (21:08)
[2016-04-27] MEDS: ACETAMINOPHEN 325MG/HYDROcodone 7.5MG/15ML UDC J-TUBE PRN ×2 (05:16→13:08)
[2016-04-27 07:53] VITALS: BP 118/80; PULSE 88; RESP 20; TEMP 98; O2SAT 98
[2016-04-27] MEDS: levETIRAcetam 500 MG/5 ML UDC JT SCH (08:51)
[2016-04-27] MEDS: LANSOPRAZOLE SOLUTAB 30 MG TAB G-TUBE SCH (08:52)
[2016-04-27] MEDS: DOCUSATE SODIUM 50 MG/SENNA 8.6 MG TAB G-TUBE SCH (08:52)
[2016-04-27] MEDS: VENLAFAXINE HCL XR 75 MG CAP PO SCH (08:52)
[2016-04-27] MEDS: busPIRone HCL 10 MG TAB G-TUBE SCH ×2 (08:52→13:07)
[2016-04-27] MEDS: METOCLOPRAMIDE HCL SYRUP 10 MG/10 ML UDC J-TUBE SCH (08:52)
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
[2016-04-27] MEDS: busPIRone HCL 10 MG TAB PO SCH (17:35)
[2016-04-27 20:00] VITALS: BP 121/82; PULSE 103; RESP 20; TEMP 98.7; O2SAT 95
[2016-04-27] MEDS: SIMETHICONE 80 MG CHEWABLE TAB CHEW PRN (20:08)
[2016-04-27] MEDS: LANSOPRAZOLE SOLUTAB 30 MG TAB PO SCH (21:00)
[2016-04-27] MEDS: ENOXAPARIN SODIUM 40 MG/0.4 ML SYRINGE SQ SCH (21:39)
[2016-04-27] MEDS: levETIRAcetam 500 MG TAB PO SCH (21:40)
[2016-04-27] MEDS: ACETAMINOPHEN/HYDROcodone 325 MG/7.5 MG TAB PO PRN (21:40)
[2016-04-27] MEDS: METOCLOPRAMIDE HCL 10 MG TAB PO SCH (21:41)
[2016-04-28] MEDS: ACETAMINOPHEN/HYDROcodone 325 MG/7.5 MG TAB PO PRN (06:43)
[2016-04-28] MEDS: VENLAFAXINE HCL XR 75 MG CAP PO SCH (08:32)
[2016-04-28] MEDS: METOCLOPRAMIDE HCL 10 MG TAB PO SCH ×2 (08:32→21:06)
[2016-04-28] MEDS: LANSOPRAZOLE SOLUTAB 30 MG TAB PO SCH ×2 (08:32→21:05)
[2016-04-28] MEDS: levETIRAcetam 500 MG TAB PO SCH ×2 (08:33→21:05)
[2016-04-28] MEDS: busPIRone HCL 10 MG TAB PO SCH ×3 (08:33→17:14)
[2016-04-28 09:00] VITALS: BP 126/90; PULSE 92; RESP 19; TEMP 97.5; O2SAT 94
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
[2016-04-28] MEDS ORDERED: ORPHENADRINE CITRATE 100 MG SUSTAINED RELEASE TAB PO ONE (14:30)
[2016-04-28] MEDS: DOCUSATE SODIUM 50 MG/SENNA 8.6 MG TAB PO SCH (14:42)
[2016-04-28] MEDS: ACETAMINOPHEN/HYDROcodone 325 MG/5 MG TAB PO PRN (17:13)
[2016-04-28] MEDS: SIMETHICONE 80 MG CHEWABLE TAB CHEW PRN (18:48)
[2016-04-28 20:00] VITALS: BP 149/90; PULSE 99; RESP 18; TEMP 98.7; O2SAT 95
[2016-04-28] MEDS: ENOXAPARIN SODIUM 40 MG/0.4 ML SYRINGE SQ SCH (21:05)
[2016-04-28] MEDS: TEMAZEPAM 15 MG CAP PO PRN (21:06)
[2016-04-29] MEDS: ACETAMINOPHEN/HYDROcodone 325 MG/5 MG TAB PO PRN ×5 (00:22→23:50)
[2016-04-29 08:00] VITALS: BP 140/96; PULSE 96; RESP 16; TEMP 97.4
[2016-04-29] MEDS: LANSOPRAZOLE SOLUTAB 30 MG TAB PO SCH ×2 (08:44→20:42)
[2016-04-29] MEDS: busPIRone HCL 10 MG TAB PO SCH ×3 (08:44→18:11)
[2016-04-29] MEDS: METOCLOPRAMIDE HCL 10 MG TAB PO SCH ×2 (08:45→20:42)
[2016-04-29] MEDS: VENLAFAXINE HCL XR 75 MG CAP PO SCH (08:45)
[2016-04-29] MEDS: levETIRAcetam 500 MG TAB PO SCH ×2 (08:45→20:42)
[2016-04-29] MEDS: DOCUSATE SODIUM 50 MG/SENNA 8.6 MG TAB PO SCH (09:00)
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
[2016-04-29] MEDS: TEMAZEPAM 15 MG CAP PO PRN (20:42)
[2016-04-29] MEDS: ENOXAPARIN SODIUM 40 MG/0.4 ML SYRINGE SQ SCH (20:42)
[2016-04-29 20:44] VITALS: BP 117/74; PULSE 103; RESP 18; TEMP 98.2; O2SAT 96
[2016-04-30] MEDS: ACETAMINOPHEN/HYDROcodone 325 MG/5 MG TAB PO PRN ×4 (06:33→23:52)
[2016-04-30] MEDS: DOCUSATE SODIUM 50 MG/SENNA 8.6 MG TAB PO SCH (09:11)
[2016-04-30] MEDS: busPIRone HCL 10 MG TAB PO SCH ×3 (09:11→18:01)
[2016-04-30] MEDS: levETIRAcetam 500 MG TAB PO SCH ×2 (09:11→22:01)
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
[2016-04-30] MEDS: LANSOPRAZOLE SOLUTAB 30 MG TAB PO SCH ×2 (09:12→22:02)
[2016-04-30] MEDS: VENLAFAXINE HCL XR 75 MG CAP PO SCH (09:12)
[2016-04-30] MEDS: METOCLOPRAMIDE HCL 10 MG TAB PO SCH ×2 (09:12→22:02)
[2016-04-30 09:33] VITALS: BP 140/93; PULSE 90; RESP 16; TEMP 98.4; O2SAT 95
[2016-04-30 20:00] VITALS: BP 139/86; PULSE 99; RESP 18; TEMP 98.7; O2SAT 96
[2016-04-30] MEDS: ENOXAPARIN SODIUM 40 MG/0.4 ML SYRINGE SQ SCH (22:02)
[2016-04-30] MEDS: TEMAZEPAM 15 MG CAP PO PRN (22:18)
[2016-05-01] MEDS: ACETAMINOPHEN/HYDROcodone 325 MG/5 MG TAB PO PRN ×4 (05:46→23:44)
[2016-05-01 08:00] VITALS: BP 132/76; PULSE 102; RESP 16; TEMP 98.5; O2SAT 98
[2016-05-01] MEDS: DOCUSATE SODIUM 50 MG/SENNA 8.6 MG TAB PO SCH (09:00)
[2016-05-01] MEDS: METOCLOPRAMIDE HCL 10 MG TAB PO SCH ×2 (09:00→20:11)
[2016-05-01] MEDS: VENLAFAXINE HCL XR 75 MG CAP PO SCH (09:00)
[2016-05-01] MEDS: levETIRAcetam 500 MG TAB PO SCH ×2 (09:00→20:10)
[2016-05-01] MEDS: LANSOPRAZOLE SOLUTAB 30 MG TAB PO SCH ×2 (09:00→20:10)
[2016-05-01] MEDS: busPIRone HCL 10 MG TAB PO SCH ×3 (09:00→17:11)
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
[2016-05-01] MEDS: ONDANSETRON ODT 4 MG TAB PO PRN (11:50)
[2016-05-01] MEDS: SIMETHICONE 80 MG CHEWABLE TAB CHEW PRN (11:51)
[2016-05-01 20:00] VITALS: BP 120/78; PULSE 99; RESP 20; TEMP 98.6; O2SAT 95
[2016-05-01] MEDS: ENOXAPARIN SODIUM 40 MG/0.4 ML SYRINGE SQ SCH (20:11)
[2016-05-01] MEDS: TEMAZEPAM 15 MG CAP PO PRN (20:12)
[2016-05-02] MEDS: ACETAMINOPHEN/HYDROcodone 325 MG/5 MG TAB PO PRN ×3 (05:56→17:30)
[2016-05-02 08:00] VITALS: BP 136/90; PULSE 98; RESP 16; TEMP 97.3; O2SAT 93
[2016-05-02] MEDS: METOCLOPRAMIDE HCL 10 MG TAB PO SCH ×2 (08:02→21:19)
[2016-05-02] MEDS: busPIRone HCL 10 MG TAB PO SCH ×3 (08:02→17:30)
[2016-05-02] MEDS: VENLAFAXINE HCL XR 75 MG CAP PO SCH (08:02)
[2016-05-02] MEDS: LANSOPRAZOLE SOLUTAB 30 MG TAB PO SCH ×2 (08:02→21:19)
[2016-05-02] MEDS: levETIRAcetam 500 MG TAB PO SCH ×2 (08:03→21:19)
[2016-05-02] MEDS: DOCUSATE SODIUM 50 MG/SENNA 8.6 MG TAB PO SCH (08:03)
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
[2016-05-02 20:00] VITALS: BP 133/92; PULSE 89; RESP 18; TEMP 98.6; O2SAT 96
[2016-05-02] MEDS: TEMAZEPAM 15 MG CAP PO PRN (21:19)
[2016-05-02] MEDS: ACETAMINOPHEN 325 MG TAB PO PRN (21:20)
[2016-05-02] MEDS: ENOXAPARIN SODIUM 40 MG/0.4 ML SYRINGE SQ SCH (21:24)
[2016-05-03] MEDS: ACETAMINOPHEN/HYDROcodone 325 MG/5 MG TAB PO PRN ×4 (00:32→18:21)
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
[2016-05-03] MEDS: LANSOPRAZOLE SOLUTAB 30 MG TAB PO SCH ×2 (08:58→20:19)
[2016-05-03] MEDS: levETIRAcetam 500 MG TAB PO SCH ×2 (08:58→20:19)
[2016-05-03] MEDS: busPIRone HCL 10 MG TAB PO SCH ×3 (08:58→17:00)
[2016-05-03] MEDS: DOCUSATE SODIUM 50 MG/SENNA 8.6 MG TAB PO SCH (08:58)
[2016-05-03] MEDS: METOCLOPRAMIDE HCL 10 MG TAB PO SCH ×2 (08:58→20:19)
[2016-05-03] MEDS: VENLAFAXINE HCL XR 75 MG CAP PO SCH (08:59)
[2016-05-03] MEDS: SIMETHICONE 80 MG CHEWABLE TAB CHEW PRN (09:10)
[2016-05-03 10:00] VITALS: BP 140/95; PULSE 102; RESP 19; TEMP 97.9; O2SAT 94
[2016-05-03] MEDS: ACETAMINOPHEN 325 MG TAB PO PRN ×2 (16:10→22:10)
[2016-05-03 20:00] VITALS: BP 122/83; PULSE 89; RESP 18; TEMP 98.9; O2SAT 98
[2016-05-03] MEDS: ENOXAPARIN SODIUM 40 MG/0.4 ML SYRINGE SQ SCH (20:19)
[2016-05-03] MEDS: TEMAZEPAM 15 MG CAP PO PRN (20:19)
[2016-05-04] MEDS: ACETAMINOPHEN/HYDROcodone 325 MG/5 MG TAB PO PRN ×5 (00:20→23:53)
[2016-05-04 07:15] VITALS: BP 123/82; PULSE 84; RESP 18; TEMP 98.3; O2SAT 95
[2016-05-04] MEDS: busPIRone HCL 10 MG TAB PO SCH ×3 (08:00→17:33)
[2016-05-04] MEDS: VENLAFAXINE HCL XR 75 MG CAP PO SCH (08:01)
[2016-05-04] MEDS: LANSOPRAZOLE SOLUTAB 30 MG TAB PO SCH ×2 (08:01→20:36)
[2016-05-04] MEDS: levETIRAcetam 500 MG TAB PO SCH ×2 (08:01→20:36)
[2016-05-04] MEDS: METOCLOPRAMIDE HCL 10 MG TAB PO SCH ×2 (08:01→20:36)
[2016-05-04] MEDS: DOCUSATE SODIUM 50 MG/SENNA 8.6 MG TAB PO SCH (08:02)
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
[2016-05-04 19:15] VITALS: BP 142/85; PULSE 91; RESP 18; TEMP 98.4; O2SAT 96
[2016-05-04] MEDS: TEMAZEPAM 15 MG CAP PO PRN (20:35)
[2016-05-04] MEDS: ACETAMINOPHEN 325 MG TAB PO PRN (20:36)
[2016-05-04] MEDS: ENOXAPARIN SODIUM 40 MG/0.4 ML SYRINGE SQ SCH (21:20)
[2016-05-05 08:00] VITALS: BP 110/62; PULSE 64; RESP 16; TEMP 95.6; O2SAT 97
[2016-05-05] MEDS: METOCLOPRAMIDE HCL 10 MG TAB PO SCH ×2 (08:10→20:46)
[2016-05-05] MEDS: VENLAFAXINE HCL XR 75 MG CAP PO SCH (08:10)
[2016-05-05] MEDS: ACETAMINOPHEN/HYDROcodone 325 MG/5 MG TAB PO PRN ×3 (08:10→20:46)
[2016-05-05] MEDS: busPIRone HCL 10 MG TAB PO SCH ×3 (08:10→17:31)
[2016-05-05] MEDS: levETIRAcetam 500 MG TAB PO SCH ×2 (08:11→20:46)
[2016-05-05] MEDS: LANSOPRAZOLE SOLUTAB 30 MG TAB PO SCH ×2 (08:11→20:46)
[2016-05-05] MEDS: DOCUSATE SODIUM 50 MG/SENNA 8.6 MG TAB PO SCH (08:12)
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
[2016-05-05] MEDS: ACETAMINOPHEN 325 MG TAB PO PRN (17:30)
[2016-05-05] MEDS: ONDANSETRON ODT 4 MG TAB PO PRN (17:30)
[2016-05-05] MEDS: ENOXAPARIN SODIUM 40 MG/0.4 ML SYRINGE SQ SCH (20:46)
[2016-05-05] MEDS: TEMAZEPAM 15 MG CAP PO PRN (20:46)
[2016-05-05 21:44] VITALS: BP 133/88; PULSE 91; RESP 16; TEMP 98.5; O2SAT 98
[2016-05-06] MEDS: ACETAMINOPHEN/HYDROcodone 325 MG/5 MG TAB PO PRN ×4 (02:59→22:32)
[2016-05-06 08:00] VITALS: BP 137/92; PULSE 88; RESP 16; TEMP 97.5; O2SAT 95
[2016-05-06] MEDS: busPIRone HCL 10 MG TAB PO SCH ×3 (08:01→17:40)
[2016-05-06] MEDS: VENLAFAXINE HCL XR 75 MG CAP PO SCH (08:01)
[2016-05-06] MEDS: levETIRAcetam 500 MG TAB PO SCH ×2 (08:01→20:10)
[2016-05-06] MEDS: METOCLOPRAMIDE HCL 10 MG TAB PO SCH ×2 (08:02→20:10)
[2016-05-06] MEDS: LANSOPRAZOLE SOLUTAB 30 MG TAB PO SCH ×2 (08:02→20:10)
[2016-05-06] MEDS: DOCUSATE SODIUM 50 MG/SENNA 8.6 MG TAB PO SCH (08:02)
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
[2016-05-06 11:36] LABS: BLOOD, URINE NEG (NEG); GLUCOSE,URINE NEG (NEG); KETONE, URINE NEG (NEG); NITRITE,URINE NEG (NEG)
[2016-05-06 11:54] LABS: COMMENT (UR) CULT NOT INDICATED; CULTURE IF INDICATED CULT NOT INDICATED; METHOD OF COLLECTION CLEAN CATCH; MUCUS URINE FEW /lpf (OCC); RBC, URINE 0-3 /hpf (0-3); SQUAMOUS EPITHELIAL CELL URINE 0-5 /hpf (0-5); URINE COLOR YELLOW (YELLW/STRAW); WBC, URINE 0-2 /hpf (0-5)
[2016-05-06 21:07] VITALS: BP 126/81; PULSE 85; RESP 16; TEMP 98.5; O2SAT 97
[2016-05-06] MEDS: TEMAZEPAM 15 MG CAP PO PRN (22:32)
[2016-05-07] MEDS: ACETAMINOPHEN/HYDROcodone 325 MG/5 MG TAB PO PRN ×3 (05:46→18:17)
[2016-05-07 08:00] VITALS: BP 127/81; PULSE 83; RESP 16; TEMP 97.2; O2SAT 94
[2016-05-07] MEDS: DOCUSATE SODIUM 50 MG/SENNA 8.6 MG TAB PO SCH (09:00)
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
[2016-05-07] MEDS: VENLAFAXINE HCL XR 75 MG CAP PO SCH (11:05)
[2016-05-07] MEDS: busPIRone HCL 10 MG TAB PO SCH ×3 (11:05→16:46)
[2016-05-07] MEDS: levETIRAcetam 500 MG TAB PO SCH ×2 (11:06→20:47)
[2016-05-07] MEDS: LANSOPRAZOLE SOLUTAB 30 MG TAB PO SCH ×2 (11:06→20:47)
[2016-05-07] MEDS: METOCLOPRAMIDE HCL 10 MG TAB PO SCH ×2 (11:06→20:47)
[2016-05-07 20:00] VITALS: BP 139/95; PULSE 84; RESP 16; TEMP 97.3; O2SAT 94
[2016-05-07] MEDS: TEMAZEPAM 15 MG CAP PO PRN (21:29)
[2016-05-08] MEDS: ACETAMINOPHEN/HYDROcodone 325 MG/5 MG TAB PO PRN ×4 (06:26→18:12)
[2016-05-08 07:45] VITALS: BP 137/88; PULSE 87; RESP 15; TEMP 98; O2SAT 94
[2016-05-08 08:00] VITALS: BP 137/88; PULSE 82; RESP 18; TEMP 96.1; O2SAT 94
--- NOTE | 2016-05-08 08:27 | PD.PROCEDR ---
GI Procedure REFERRING PHYSICIAN Dr Stallworth PROCEDURE PERFORMED EGD with esophageal stent removal INDICATION FOR PROCEDURE Dysphagia PROCEDURE: The procedure, risks and benefits were discussed with Mr. Pavon and informed consent was obtained. Anesthesia sedated him with Diprivan. He was placed in the left lateral decubitus position. EGD: The Pentax videoscope was introduced through the oropharynx and advanced to the second portion of the duodenum under direct visualization. Retroflexion was performed in the stomach. FINDINGS: the esophagus: a large clogged up stent noted in the esophagus this was removed , food residue noted in the esophagus, incomplete evaluation, but no obvious stricture noted the stomach PEG tube noted otherwise unremarkable the duodenum: unremarkable ESTIMATED BLOOD LOSS: none SPECIMENS REMOVED: none COMPLICATIONS: none IMPRESSION: clogged esophageal stent, removed PLAN: keep NPO for now repeat barium swallow supportive care Srikanth Garvin MD May 08, 2016 08:26
[2016-05-08] MEDS: DOCUSATE SODIUM 50 MG/SENNA 8.6 MG TAB PO SCH (09:00)
[2016-05-08] MEDS: VENLAFAXINE HCL XR 75 MG CAP PO SCH ×2 (09:00→09:14)
[2016-05-08] MEDS: busPIRone HCL 10 MG TAB PO SCH ×3 (09:12→17:24)
[2016-05-08] MEDS: METOCLOPRAMIDE HCL 10 MG TAB PO SCH ×2 (09:12→20:49)
[2016-05-08] MEDS: LANSOPRAZOLE SOLUTAB 30 MG TAB PO SCH ×2 (09:12→20:50)
[2016-05-08] MEDS: levETIRAcetam 500 MG TAB PO SCH ×2 (09:12→20:56)
[2016-05-08] MEDS ORDERED: PROPOFOL 200 MG/20 ML AMP IV ONE (11:35)
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
[2016-05-08 20:00] VITALS: BP 128/83; PULSE 88; RESP 18; TEMP 96.5; O2SAT 94
[2016-05-08] MEDS: TEMAZEPAM 15 MG CAP PO PRN (20:49)
[2016-05-09] MEDS: ACETAMINOPHEN/HYDROcodone 325 MG/5 MG TAB PO PRN ×5 (02:48→21:20)
[2016-05-09 08:00] VITALS: BP 122/84; PULSE 96; RESP 16; TEMP 96.8; O2SAT 95
[2016-05-09] MEDS: VENLAFAXINE HCL XR 75 MG CAP PO SCH (08:22)
[2016-05-09] MEDS: busPIRone HCL 10 MG TAB PO SCH ×3 (08:23→16:53)
[2016-05-09] MEDS: LANSOPRAZOLE SOLUTAB 30 MG TAB PO SCH ×2 (08:23→21:20)
[2016-05-09] MEDS: DOCUSATE SODIUM 50 MG/SENNA 8.6 MG TAB PO SCH (08:23)
[2016-05-09] MEDS: METOCLOPRAMIDE HCL 10 MG TAB PO SCH ×2 (08:23→21:20)
[2016-05-09] MEDS: levETIRAcetam 500 MG TAB PO SCH ×2 (08:23→21:20)
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
--- NOTE | 2016-05-09 19:13 | HHI.GIFU ---
Subjective Remarks Comfortable in bed No complaints Asking to eat Objective Vitals I&O Vital Signs Date Time Temp Pulse Resp B/P Pulse Ox O2 Delivery O2 Flow Rate FiO2 05/09/16 16:09 12 05/09/16 08:00 96.8 96 16 122/84 95 05/08/16 20:00 96.5 88 18 128/83 94 I/O 05/08/16 05/08/16 05/08/16 05/09/16 05/09/16 05/09/16 07:00 15:00 23:00 07:00 15:00 23:00 Intake Total 620 ml 140 ml 40 ml Balance 620 ml 140 ml 40 ml Intake Oral 150 ml 50 ml 40 ml Tube Feeding 110 ml 90 ml Tube Irrigant 360 ml # Voids 2 2 # Bowel Movements 0 Imaging Last 48 hours Impressions Barium Swallow X-Ray 05/08/16 0000 Signed Impressions: Service Date/Time: Sunday, May 08, 2016 13:03 - CONCLUSION: No evidence of esophageal leak or fistula at present Martinez Mccoy MD Physical Exam HEENT: Normocephalic CHEST: Clear to auscultation CARDIAC: RRR ABDOMEN: Soft, nontender, nondistended, bowel sounds are present in all four quadrants.G/J tube in place normal site EXTREMITIES: Generalized edema. SKIN: Normal; no rash; no jaundice. SAND MIXER OPERATOR: Awake, A/O x 3 . Assessment and Plan Plan Known history of esophagobronchial fistula patient had a plugged stent this was removed yesterday Repeat barium swallow shows the esophagus to be patent and no fistula tract and no leakage PLAN: - advance diet slowly Watch for aspiration. We will sign off Srikanth Garvin MD May 09, 2016 19:13
[2016-05-09 20:00] VITALS: BP 102/69; PULSE 87; RESP 18; TEMP 97.5; O2SAT 94
[2016-05-09] MEDS: TEMAZEPAM 15 MG CAP PO PRN (21:20)
[2016-05-10] MEDS: SIMETHICONE 80 MG CHEWABLE TAB CHEW PRN (00:52)
[2016-05-10] MEDS: ACETAMINOPHEN 325 MG TAB PO PRN (00:52)
[2016-05-10] MEDS: ACETAMINOPHEN/HYDROcodone 325 MG/5 MG TAB PO PRN ×4 (04:03→21:45)
[2016-05-10 08:00] VITALS: BP 106/71; PULSE 88; RESP 16; TEMP 96.6; O2SAT 96
[2016-05-10] MEDS: busPIRone HCL 10 MG TAB PO SCH ×3 (09:47→17:21)
[2016-05-10] MEDS: levETIRAcetam 500 MG TAB PO SCH ×2 (09:47→21:44)
[2016-05-10] MEDS: METOCLOPRAMIDE HCL 10 MG TAB PO SCH ×2 (09:47→21:45)
[2016-05-10] MEDS: DOCUSATE SODIUM 50 MG/SENNA 8.6 MG TAB PO SCH (09:47)
[2016-05-10] MEDS: LANSOPRAZOLE SOLUTAB 30 MG TAB PO SCH ×2 (09:47→21:44)
[2016-05-10] MEDS: VENLAFAXINE HCL XR 75 MG CAP PO SCH (09:47)
[2016-05-10] MEDS ORDERED: RESP: ALBUTEROL 2.5 MG/IPRATROPIUM 0.5 MG NEB (PRN) NEB (10:00)
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
[2016-05-10 20:00] VITALS: BP 104/73; PULSE 88; RESP 19; TEMP 97; O2SAT 94
[2016-05-10] MEDS: TEMAZEPAM 15 MG CAP PO PRN (21:44)
[2016-05-10] MEDS: ENOXAPARIN SODIUM 40 MG/0.4 ML SYRINGE SQ SCH (22:08)
[2016-05-11] MEDS: ACETAMINOPHEN/HYDROcodone 325 MG/5 MG TAB PO PRN ×4 (03:48→22:32)
[2016-05-11 08:00] VITALS: BP 110/75; PULSE 92; RESP 19; TEMP 96.8; O2SAT 95
[2016-05-11] MEDS: DOCUSATE SODIUM 50 MG/SENNA 8.6 MG TAB PO SCH (09:00)
[2016-05-11] MEDS: levETIRAcetam 500 MG TAB PO SCH ×2 (09:09→20:52)
[2016-05-11] MEDS: METOCLOPRAMIDE HCL 10 MG TAB PO SCH ×2 (09:09→20:53)
[2016-05-11] MEDS: LANSOPRAZOLE SOLUTAB 30 MG TAB PO SCH ×2 (09:09→20:53)
[2016-05-11] MEDS: VENLAFAXINE HCL XR 75 MG CAP PO SCH (09:10)
[2016-05-11] MEDS: busPIRone HCL 10 MG TAB PO SCH ×3 (09:10→17:57)
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
[2016-05-11 20:00] VITALS: BP 133/90; PULSE 82; RESP 20; TEMP 97.5; O2SAT 97
[2016-05-11] MEDS: ENOXAPARIN SODIUM 40 MG/0.4 ML SYRINGE SQ SCH (20:53)
[2016-05-11] MEDS: TEMAZEPAM 15 MG CAP PO PRN (22:32)
[2016-05-12] MEDS: ACETAMINOPHEN/HYDROcodone 325 MG/5 MG TAB PO PRN ×4 (04:31→22:37)
[2016-05-12 08:00] VITALS: BP 119/87; PULSE 82; RESP 16; TEMP 96.6; O2SAT 95
[2016-05-12] MEDS: METOCLOPRAMIDE HCL 10 MG TAB PO SCH ×2 (08:54→21:09)
[2016-05-12] MEDS: LANSOPRAZOLE SOLUTAB 30 MG TAB PO SCH ×2 (08:54→21:09)
[2016-05-12] MEDS: busPIRone HCL 10 MG TAB PO SCH ×3 (08:54→16:34)
[2016-05-12] MEDS: levETIRAcetam 500 MG TAB PO SCH ×2 (08:54→21:09)
[2016-05-12] MEDS: VENLAFAXINE HCL XR 75 MG CAP PO SCH (08:54)
[2016-05-12] MEDS: DOCUSATE SODIUM 50 MG/SENNA 8.6 MG TAB PO SCH (08:56)
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
[2016-05-12 20:00] VITALS: BP 122/79; PULSE 77; RESP 16; TEMP 98.4; O2SAT 94
[2016-05-12] MEDS: TEMAZEPAM 15 MG CAP PO PRN (22:37)
[2016-05-12] MEDS: ENOXAPARIN SODIUM 40 MG/0.4 ML SYRINGE SQ SCH (22:37)
[2016-05-13] MEDS: ACETAMINOPHEN/HYDROcodone 325 MG/5 MG TAB PO PRN ×3 (04:36→17:59)
[2016-05-13 08:00] VITALS: BP 114/78; PULSE 87; RESP 16; TEMP 96.7; O2SAT 98
[2016-05-13] MEDS: METOCLOPRAMIDE HCL 10 MG TAB PO SCH ×2 (08:39→20:57)
[2016-05-13] MEDS: VENLAFAXINE HCL XR 75 MG CAP PO SCH (08:39)
[2016-05-13] MEDS: LANSOPRAZOLE SOLUTAB 30 MG TAB PO SCH ×2 (08:39→20:57)
[2016-05-13] MEDS: levETIRAcetam 500 MG TAB PO SCH ×2 (08:39→20:57)
[2016-05-13] MEDS: busPIRone HCL 10 MG TAB PO SCH ×3 (08:40→17:10)
[2016-05-13] MEDS: DOCUSATE SODIUM 50 MG/SENNA 8.6 MG TAB PO SCH (08:40)
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
[2016-05-13 20:00] VITALS: BP 107/73; PULSE 88; RESP 18; TEMP 98.6; O2SAT 94
[2016-05-13] MEDS: ENOXAPARIN SODIUM 40 MG/0.4 ML SYRINGE SQ SCH (20:58)
[2016-05-13] MEDS: TEMAZEPAM 15 MG CAP PO PRN (20:58)
[2016-05-14] MEDS: ACETAMINOPHEN/HYDROcodone 325 MG/5 MG TAB PO PRN ×4 (00:36→18:10)
[2016-05-14 08:00] VITALS: BP 114/73; PULSE 88; RESP 18; TEMP 97.5; O2SAT 95
[2016-05-14] MEDS: levETIRAcetam 500 MG TAB PO SCH ×2 (09:16→21:14)
[2016-05-14] MEDS: busPIRone HCL 10 MG TAB PO SCH ×3 (09:16→18:09)
[2016-05-14] MEDS: VENLAFAXINE HCL XR 75 MG CAP PO SCH (09:16)
[2016-05-14] MEDS: METOCLOPRAMIDE HCL 10 MG TAB PO SCH ×2 (09:16→21:14)
[2016-05-14] MEDS: LANSOPRAZOLE SOLUTAB 30 MG TAB PO SCH ×2 (09:17→21:14)
[2016-05-14] MEDS: DOCUSATE SODIUM 50 MG/SENNA 8.6 MG TAB PO SCH (09:17)
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
[2016-05-14] MEDS: ACETAMINOPHEN 325 MG TAB PO PRN (13:57)
[2016-05-14 20:00] VITALS: BP 113/76; PULSE 98; RESP 18; TEMP 98.7; O2SAT 95
[2016-05-14] MEDS: TEMAZEPAM 15 MG CAP PO PRN (21:29)
[2016-05-14] MEDS: ENOXAPARIN SODIUM 40 MG/0.4 ML SYRINGE SQ SCH (21:29)
[2016-05-15] MEDS: ACETAMINOPHEN/HYDROcodone 325 MG/5 MG TAB PO PRN ×4 (00:42→21:26)
[2016-05-15 08:00] VITALS: BP 105/73; PULSE 93; RESP 16; TEMP 98.5; O2SAT 93
[2016-05-15] MEDS: VENLAFAXINE HCL XR 75 MG CAP PO SCH (09:03)
[2016-05-15] MEDS: busPIRone HCL 10 MG TAB PO SCH ×3 (09:03→16:18)
[2016-05-15] MEDS: DOCUSATE SODIUM 50 MG/SENNA 8.6 MG TAB PO SCH (09:03)
[2016-05-15] MEDS: levETIRAcetam 500 MG TAB PO SCH ×2 (09:04→21:26)
[2016-05-15] MEDS: LANSOPRAZOLE SOLUTAB 30 MG TAB PO SCH ×2 (09:04→21:25)
[2016-05-15] MEDS: METOCLOPRAMIDE HCL 10 MG TAB PO SCH ×2 (09:04→21:26)
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
[2016-05-15 20:30] VITALS: BP 115/81; PULSE 86; RESP 20; TEMP 97.1; O2SAT 94
[2016-05-15] MEDS: ENOXAPARIN SODIUM 40 MG/0.4 ML SYRINGE SQ SCH (21:24)
[2016-05-15] MEDS: TEMAZEPAM 15 MG CAP PO PRN (21:33)
[2016-05-16] MEDS: ACETAMINOPHEN/HYDROcodone 325 MG/5 MG TAB PO PRN ×4 (03:09→21:33)
[2016-05-16 08:00] VITALS: BP 105/79; PULSE 88; RESP 16; TEMP 97.1; O2SAT 93
[2016-05-16] MEDS: LANSOPRAZOLE SOLUTAB 30 MG TAB PO SCH ×2 (09:09→20:14)
[2016-05-16] MEDS: busPIRone HCL 10 MG TAB PO SCH ×3 (09:09→17:11)
[2016-05-16] MEDS: levETIRAcetam 500 MG TAB PO SCH ×2 (09:09→20:14)
[2016-05-16] MEDS: DOCUSATE SODIUM 50 MG/SENNA 8.6 MG TAB PO SCH (09:09)
[2016-05-16] MEDS: METOCLOPRAMIDE HCL 10 MG TAB PO SCH ×2 (09:09→20:14)
[2016-05-16] MEDS: VENLAFAXINE HCL XR 75 MG CAP PO SCH (09:09)
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
[2016-05-16 20:15] VITALS: BP 115/66; PULSE 83; RESP 22; TEMP 96.5; O2SAT 97
[2016-05-16] MEDS: ENOXAPARIN SODIUM 40 MG/0.4 ML SYRINGE SQ SCH (20:15)
[2016-05-16] MEDS: TEMAZEPAM 15 MG CAP PO PRN (21:33)
[2016-05-17] MEDS: ACETAMINOPHEN/HYDROcodone 325 MG/5 MG TAB PO PRN ×4 (03:31→21:46)
[2016-05-17 08:00] VITALS: BP 112/62; PULSE 80; RESP 16; TEMP 98.2; O2SAT 97
[2016-05-17] MEDS: DOCUSATE SODIUM 50 MG/SENNA 8.6 MG TAB PO SCH (09:00)
[2016-05-17] MEDS: LANSOPRAZOLE SOLUTAB 30 MG TAB PO SCH ×2 (09:12→20:13)
[2016-05-17] MEDS: METOCLOPRAMIDE HCL 10 MG TAB PO SCH ×2 (09:12→20:13)
[2016-05-17] MEDS: VENLAFAXINE HCL XR 75 MG CAP PO SCH (09:12)
[2016-05-17] MEDS: busPIRone HCL 10 MG TAB PO SCH ×3 (09:12→17:36)
[2016-05-17] MEDS: levETIRAcetam 500 MG TAB PO SCH ×2 (09:12→20:13)
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
[2016-05-17] MEDS: ACETAMINOPHEN 325 MG TAB PO PRN (12:46)
[2016-05-17 19:15] VITALS: BP 108/72; PULSE 76; RESP 18; TEMP 96.9; O2SAT 97
[2016-05-17] MEDS: ENOXAPARIN SODIUM 40 MG/0.4 ML SYRINGE SQ SCH (21:46)
[2016-05-17] MEDS: TEMAZEPAM 15 MG CAP PO PRN (21:46)
[2016-05-18] MEDS: ACETAMINOPHEN/HYDROcodone 325 MG/5 MG TAB PO PRN ×4 (03:02→21:17)
[2016-05-18 08:00] VITALS: BP 123/86; PULSE 79; RESP 20; TEMP 96.9; O2SAT 95
[2016-05-18] MEDS: VENLAFAXINE HCL XR 75 MG CAP PO SCH (09:07)
[2016-05-18] MEDS: LANSOPRAZOLE SOLUTAB 30 MG TAB PO SCH ×2 (09:07→20:20)
[2016-05-18] MEDS: levETIRAcetam 500 MG TAB PO SCH ×2 (09:07→20:20)
[2016-05-18] MEDS: DOCUSATE SODIUM 50 MG/SENNA 8.6 MG TAB PO SCH (09:08)
[2016-05-18] MEDS: busPIRone HCL 10 MG TAB PO SCH ×3 (09:08→17:57)
[2016-05-18] MEDS: METOCLOPRAMIDE HCL 10 MG TAB PO SCH ×2 (09:08→20:20)
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
[2016-05-18 20:00] VITALS: BP 123/81; PULSE 79; RESP 20; TEMP 96.3; O2SAT 96
[2016-05-18] MEDS: TEMAZEPAM 15 MG CAP PO PRN (21:17)
[2016-05-18] MEDS: ENOXAPARIN SODIUM 40 MG/0.4 ML SYRINGE SQ SCH (21:17)
[2016-05-19] MEDS: ACETAMINOPHEN/HYDROcodone 325 MG/5 MG TAB PO PRN ×4 (03:18→21:01)
[2016-05-19 08:00] VITALS: BP 110/74; PULSE 80; RESP 18; TEMP 96.2; O2SAT 95
[2016-05-19] MEDS: busPIRone HCL 10 MG TAB PO SCH ×3 (09:05→18:10)
[2016-05-19] MEDS: VENLAFAXINE HCL XR 75 MG CAP PO SCH (09:05)
[2016-05-19] MEDS: levETIRAcetam 500 MG TAB PO SCH ×2 (09:05→21:01)
[2016-05-19] MEDS: METOCLOPRAMIDE HCL 10 MG TAB PO SCH ×2 (09:05→21:01)
[2016-05-19] MEDS: DOCUSATE SODIUM 50 MG/SENNA 8.6 MG TAB PO SCH (09:06)
[2016-05-19] MEDS: LANSOPRAZOLE SOLUTAB 30 MG TAB PO SCH ×2 (09:06→21:01)
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
[2016-05-19 20:00] VITALS: BP 112/74; PULSE 79; RESP 20; TEMP 96.7; O2SAT 97
[2016-05-19] MEDS: TEMAZEPAM 15 MG CAP PO PRN (21:01)
[2016-05-19] MEDS: ENOXAPARIN SODIUM 40 MG/0.4 ML SYRINGE SQ SCH (21:01)
[2016-05-20] MEDS: ACETAMINOPHEN/HYDROcodone 325 MG/5 MG TAB PO PRN ×4 (04:19→21:22)
[2016-05-20 08:00] VITALS: BP 103/72; PULSE 79; RESP 16; TEMP 97.1; O2SAT 94
[2016-05-20] MEDS: VENLAFAXINE HCL XR 75 MG CAP PO SCH (08:51)
[2016-05-20] MEDS: levETIRAcetam 500 MG TAB PO SCH ×2 (08:51→21:21)
[2016-05-20] MEDS: busPIRone HCL 10 MG TAB PO SCH ×3 (08:52→17:16)
[2016-05-20] MEDS: METOCLOPRAMIDE HCL 10 MG TAB PO SCH ×2 (08:52→21:22)
[2016-05-20] MEDS: LANSOPRAZOLE SOLUTAB 30 MG TAB PO SCH ×2 (08:52→21:22)
[2016-05-20] MEDS: DOCUSATE SODIUM 50 MG/SENNA 8.6 MG TAB PO SCH (08:53)
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
[2016-05-20 20:00] VITALS: BP 122/84; PULSE 82; RESP 20; TEMP 98.5; O2SAT 95
[2016-05-20] MEDS: ENOXAPARIN SODIUM 40 MG/0.4 ML SYRINGE SQ SCH (21:21)
[2016-05-20] MEDS: TEMAZEPAM 15 MG CAP PO PRN (21:22)
[2016-05-21] MEDS: ACETAMINOPHEN/HYDROcodone 325 MG/5 MG TAB PO PRN ×4 (03:04→20:58)
[2016-05-21 08:00] VITALS: BP 109/72; PULSE 82; RESP 17; TEMP 98.5; O2SAT 96
[2016-05-21] MEDS: METOCLOPRAMIDE HCL 10 MG TAB PO SCH ×2 (09:10→20:57)
[2016-05-21] MEDS: busPIRone HCL 10 MG TAB PO SCH ×3 (09:10→16:37)
[2016-05-21] MEDS: levETIRAcetam 500 MG TAB PO SCH ×2 (09:10→20:58)
[2016-05-21] MEDS: LANSOPRAZOLE SOLUTAB 30 MG TAB PO SCH ×2 (09:11→20:57)
[2016-05-21] MEDS: VENLAFAXINE HCL XR 75 MG CAP PO SCH (09:11)
[2016-05-21] MEDS: DOCUSATE SODIUM 50 MG/SENNA 8.6 MG TAB PO SCH (09:11)
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
[2016-05-21 20:52] VITALS: BP 100/67; PULSE 81; RESP 16; TEMP 97.6; O2SAT 95
[2016-05-21] MEDS: TEMAZEPAM 15 MG CAP PO PRN (20:57)
[2016-05-21] MEDS: ENOXAPARIN SODIUM 40 MG/0.4 ML SYRINGE SQ SCH (20:57)
[2016-05-21] MEDS: guaiFENesin/DEXTROMETHORPHAN 200 MG/20 MG/10 ML CUP PO PRN (22:32)
[2016-05-22] MEDS: ACETAMINOPHEN/HYDROcodone 325 MG/5 MG TAB PO PRN ×4 (02:59→21:07)
[2016-05-22] MEDS: guaiFENesin/DEXTROMETHORPHAN 200 MG/20 MG/10 ML CUP PO PRN (05:43)
[2016-05-22 08:00] VITALS: BP 121/80; PULSE 84; RESP 18; TEMP 97.1; O2SAT 95
[2016-05-22] MEDS: DOCUSATE SODIUM 50 MG/SENNA 8.6 MG TAB PO SCH (08:41)
[2016-05-22] MEDS: levETIRAcetam 500 MG TAB PO SCH ×2 (08:41→21:08)
[2016-05-22] MEDS: METOCLOPRAMIDE HCL 10 MG TAB PO SCH ×2 (08:42→21:07)
[2016-05-22] MEDS: busPIRone HCL 10 MG TAB PO SCH ×3 (08:42→16:48)
[2016-05-22] MEDS: VENLAFAXINE HCL XR 75 MG CAP PO SCH (08:42)
[2016-05-22] MEDS: LANSOPRAZOLE SOLUTAB 30 MG TAB PO SCH ×2 (08:42→21:08)
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
[2016-05-22 20:00] VITALS: BP 101/63; PULSE 88; RESP 20; TEMP 98.5; O2SAT 95
[2016-05-22] MEDS: TEMAZEPAM 15 MG CAP PO PRN (21:07)
[2016-05-22] MEDS: ENOXAPARIN SODIUM 40 MG/0.4 ML SYRINGE SQ SCH (21:09)
[2016-05-23] MEDS: ACETAMINOPHEN/HYDROcodone 325 MG/5 MG TAB PO PRN ×4 (03:14→21:06)
[2016-05-23 07:45] VITALS: BP 107/78; PULSE 82; RESP 17; TEMP 97.8; O2SAT 95
[2016-05-23] MEDS: VENLAFAXINE HCL XR 75 MG CAP PO SCH (08:06)
[2016-05-23] MEDS: busPIRone HCL 10 MG TAB PO SCH ×3 (08:06→17:20)
[2016-05-23] MEDS: METOCLOPRAMIDE HCL 10 MG TAB PO SCH ×2 (08:06→21:05)
[2016-05-23] MEDS: LANSOPRAZOLE SOLUTAB 30 MG TAB PO SCH ×2 (08:06→21:05)
[2016-05-23] MEDS: DOCUSATE SODIUM 50 MG/SENNA 8.6 MG TAB PO SCH (08:07)
[2016-05-23] MEDS: levETIRAcetam 500 MG TAB PO SCH ×2 (08:07→21:05)
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
[2016-05-23 20:00] VITALS: BP 114/76; PULSE 82; RESP 18; TEMP 97.5; O2SAT 94
[2016-05-23] MEDS: ENOXAPARIN SODIUM 40 MG/0.4 ML SYRINGE SQ SCH (21:06)
[2016-05-23] MEDS: TEMAZEPAM 15 MG CAP PO PRN (21:08)
[2016-05-23] MEDS: BACITRACIN/POLYMYXIN B 15 GM TUBE TOPICAL SCH (21:11)
[2016-05-24] MEDS: ACETAMINOPHEN/HYDROcodone 325 MG/5 MG TAB PO PRN ×4 (04:06→22:06)
[2016-05-24] MEDS: ACETAMINOPHEN 325 MG TAB PO PRN (05:46)
[2016-05-24 08:00] VITALS: BP 101/69; PULSE 85; RESP 20; TEMP 96.2; O2SAT 94
[2016-05-24] MEDS: LANSOPRAZOLE SOLUTAB 30 MG TAB PO SCH ×2 (09:52→20:12)
[2016-05-24] MEDS: VENLAFAXINE HCL XR 75 MG CAP PO SCH (09:52)
[2016-05-24] MEDS: busPIRone HCL 10 MG TAB PO SCH ×3 (09:52→16:19)
[2016-05-24] MEDS: DOCUSATE SODIUM 50 MG/SENNA 8.6 MG TAB PO SCH (09:52)
[2016-05-24] MEDS: levETIRAcetam 500 MG TAB PO SCH ×2 (09:52→20:12)
[2016-05-24] MEDS: METOCLOPRAMIDE HCL 10 MG TAB PO SCH ×2 (09:52→20:12)
[2016-05-24] MEDS: BACITRACIN/POLYMYXIN B 15 GM TUBE TOPICAL SCH ×2 (10:12→20:14)
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
[2016-05-24 20:00] VITALS: BP 106/69; PULSE 82; RESP 18; TEMP 98.4; O2SAT 95
[2016-05-24] MEDS: ENOXAPARIN SODIUM 40 MG/0.4 ML SYRINGE SQ SCH (22:05)
[2016-05-24] MEDS: ONDANSETRON ODT 4 MG TAB PO PRN (22:06)
[2016-05-24] MEDS: TEMAZEPAM 15 MG CAP PO PRN (22:06)
[2016-05-25] MEDS: ACETAMINOPHEN/HYDROcodone 325 MG/5 MG TAB PO PRN ×4 (03:57→21:32)
[2016-05-25 08:00] VITALS: BP 111/72; PULSE 90; RESP 16; TEMP 98; O2SAT 94
[2016-05-25] MEDS: busPIRone HCL 10 MG TAB PO SCH ×3 (08:27→17:02)
[2016-05-25] MEDS: METOCLOPRAMIDE HCL 10 MG TAB PO SCH ×2 (08:27→21:31)
[2016-05-25] MEDS: LANSOPRAZOLE SOLUTAB 30 MG TAB PO SCH ×2 (08:27→21:31)
[2016-05-25] MEDS: VENLAFAXINE HCL XR 75 MG CAP PO SCH (08:27)
[2016-05-25] MEDS: levETIRAcetam 500 MG TAB PO SCH ×2 (08:27→21:31)
[2016-05-25] MEDS: DOCUSATE SODIUM 50 MG/SENNA 8.6 MG TAB PO SCH (08:27)
[2016-05-25] MEDS: BACITRACIN/POLYMYXIN B 15 GM TUBE TOPICAL SCH ×2 (08:32→21:32)
[2016-05-25] MEDS: ONDANSETRON ODT 4 MG TAB PO PRN (09:47)
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
[2016-05-25 20:25] VITALS: BP 110/74; PULSE 86; RESP 18; TEMP 96.8; O2SAT 96
[2016-05-25] MEDS: ENOXAPARIN SODIUM 40 MG/0.4 ML SYRINGE SQ SCH (21:31)
[2016-05-25] MEDS: TEMAZEPAM 15 MG CAP PO PRN (21:31)
[2016-05-26] MEDS: ACETAMINOPHEN/HYDROcodone 325 MG/5 MG TAB PO PRN ×4 (03:12→21:05)
[2016-05-26 08:00] VITALS: BP 116/70; PULSE 76; RESP 18; TEMP 98.1; O2SAT 95
[2016-05-26] MEDS: levETIRAcetam 500 MG TAB PO SCH ×2 (08:42→21:06)
[2016-05-26] MEDS: DOCUSATE SODIUM 50 MG/SENNA 8.6 MG TAB PO SCH (08:42)
[2016-05-26] MEDS: BACITRACIN/POLYMYXIN B 15 GM TUBE TOPICAL SCH ×2 (08:43→21:07)
[2016-05-26] MEDS: METOCLOPRAMIDE HCL 10 MG TAB PO SCH ×2 (08:43→21:06)
[2016-05-26] MEDS: busPIRone HCL 10 MG TAB PO SCH ×3 (08:43→17:21)
[2016-05-26] MEDS: LANSOPRAZOLE SOLUTAB 30 MG TAB PO SCH ×2 (08:43→21:06)
[2016-05-26] MEDS: VENLAFAXINE HCL XR 75 MG CAP PO SCH (08:43)
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
[2016-05-26 20:00] VITALS: BP 103/66; PULSE 86; RESP 18; TEMP 97.4; O2SAT 95
[2016-05-26] MEDS: ENOXAPARIN SODIUM 40 MG/0.4 ML SYRINGE SQ SCH (21:05)
[2016-05-26] MEDS: TEMAZEPAM 15 MG CAP PO PRN (21:06)
[2016-05-27] MEDS: ACETAMINOPHEN/HYDROcodone 325 MG/5 MG TAB PO PRN ×4 (03:12→20:30)
[2016-05-27 08:00] VITALS: BP 110/74; PULSE 80; RESP 18; TEMP 98; O2SAT 96
[2016-05-27] MEDS: VENLAFAXINE HCL XR 75 MG CAP PO SCH (09:03)
[2016-05-27] MEDS: busPIRone HCL 10 MG TAB PO SCH ×3 (09:03→17:08)
[2016-05-27] MEDS: METOCLOPRAMIDE HCL 10 MG TAB PO SCH ×2 (09:04→20:29)
[2016-05-27] MEDS: LANSOPRAZOLE SOLUTAB 30 MG TAB PO SCH ×2 (09:04→20:29)
[2016-05-27] MEDS: BACITRACIN/POLYMYXIN B 15 GM TUBE TOPICAL SCH ×2 (09:04→20:30)
[2016-05-27] MEDS: levETIRAcetam 500 MG TAB PO SCH ×2 (09:04→20:29)
[2016-05-27] MEDS: DOCUSATE SODIUM 50 MG/SENNA 8.6 MG TAB PO SCH (09:04)
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
[2016-05-27 20:24] VITALS: BP 136/77; PULSE 87; RESP 20; TEMP 96.9; O2SAT 98
[2016-05-27] MEDS: TEMAZEPAM 15 MG CAP PO PRN (20:29)
[2016-05-27] MEDS: ENOXAPARIN SODIUM 40 MG/0.4 ML SYRINGE SQ SCH (20:30)
[2016-05-27] MEDS: guaiFENesin/DEXTROMETHORPHAN 200 MG/20 MG/10 ML CUP PO PRN (22:53)
[2016-05-28] MEDS: ACETAMINOPHEN/HYDROcodone 325 MG/5 MG TAB PO PRN ×4 (02:56→21:13)
[2016-05-28 08:00] VITALS: BP 110/79; PULSE 83; RESP 16; TEMP 98; O2SAT 97
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
[2016-05-28] MEDS: METOCLOPRAMIDE HCL 10 MG TAB PO SCH ×2 (09:19→21:13)
[2016-05-28] MEDS: LANSOPRAZOLE SOLUTAB 30 MG TAB PO SCH ×2 (09:19→21:14)
[2016-05-28] MEDS: busPIRone HCL 10 MG TAB PO SCH ×3 (09:19→17:51)
[2016-05-28] MEDS: DOCUSATE SODIUM 50 MG/SENNA 8.6 MG TAB PO SCH (09:19)
[2016-05-28] MEDS: VENLAFAXINE HCL XR 75 MG CAP PO SCH (09:19)
[2016-05-28] MEDS: BACITRACIN/POLYMYXIN B 15 GM TUBE TOPICAL SCH ×2 (09:20→21:15)
[2016-05-28] MEDS: levETIRAcetam 500 MG TAB PO SCH ×2 (10:03→21:14)
[2016-05-28 20:00] VITALS: BP 97/67; PULSE 83; RESP 18; TEMP 96.4; O2SAT 96
[2016-05-28] MEDS: ENOXAPARIN SODIUM 40 MG/0.4 ML SYRINGE SQ SCH (21:12)
[2016-05-28] MEDS: TEMAZEPAM 15 MG CAP PO PRN (21:14)
[2016-05-28] MEDS: guaiFENesin/DEXTROMETHORPHAN 200 MG/20 MG/10 ML CUP PO PRN (22:44)
[2016-05-29] MEDS: ACETAMINOPHEN/HYDROcodone 325 MG/5 MG TAB PO PRN ×4 (04:39→23:22)
[2016-05-29 08:04] VITALS: BP 113/78; PULSE 85; RESP 16; TEMP 97.9; O2SAT 94
[2016-05-29] MEDS: busPIRone HCL 10 MG TAB PO SCH ×3 (08:04→17:05)
[2016-05-29] MEDS: levETIRAcetam 500 MG TAB PO SCH ×2 (08:04→21:07)
[2016-05-29] MEDS: DOCUSATE SODIUM 50 MG/SENNA 8.6 MG TAB PO SCH (08:04)
[2016-05-29] MEDS: VENLAFAXINE HCL XR 75 MG CAP PO SCH (08:04)
[2016-05-29] MEDS: METOCLOPRAMIDE HCL 10 MG TAB PO SCH ×2 (08:05→21:07)
[2016-05-29] MEDS: LANSOPRAZOLE SOLUTAB 30 MG TAB PO SCH ×2 (08:05→21:07)
[2016-05-29] MEDS: BACITRACIN/POLYMYXIN B 15 GM TUBE TOPICAL SCH ×2 (08:05→21:10)
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
[2016-05-29 10:26] VITALS: BP 110/78
[2016-05-29 20:00] VITALS: BP 138/83; PULSE 87; RESP 18; TEMP 98.4; O2SAT 96
[2016-05-29] MEDS: ENOXAPARIN SODIUM 40 MG/0.4 ML SYRINGE SQ SCH (21:07)
[2016-05-29] MEDS: TEMAZEPAM 15 MG CAP PO PRN (21:07)
[2016-05-29] MEDS: guaiFENesin/DEXTROMETHORPHAN 200 MG/20 MG/10 ML CUP PO PRN (21:19)
[2016-05-30 08:00] VITALS: BP 123/87; PULSE 85; RESP 17; TEMP 97.2; O2SAT 93
[2016-05-30] MEDS: DOCUSATE SODIUM 50 MG/SENNA 8.6 MG TAB PO SCH (09:00)
[2016-05-30] MEDS: BACITRACIN/POLYMYXIN B 15 GM TUBE TOPICAL SCH ×2 (09:00→20:51)
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
[2016-05-30] MEDS: VENLAFAXINE HCL XR 75 MG CAP PO SCH (10:32)
[2016-05-30] MEDS: LANSOPRAZOLE SOLUTAB 30 MG TAB PO SCH ×2 (10:32→20:49)
[2016-05-30] MEDS: levETIRAcetam 500 MG TAB PO SCH ×2 (10:32→20:49)
[2016-05-30] MEDS: ACETAMINOPHEN/HYDROcodone 325 MG/5 MG TAB PO PRN ×3 (10:32→22:09)
[2016-05-30] MEDS: busPIRone HCL 10 MG TAB PO SCH ×3 (10:32→17:50)
[2016-05-30] MEDS: METOCLOPRAMIDE HCL 10 MG TAB PO SCH ×2 (10:33→20:49)
[2016-05-30] MEDS: ACETAMINOPHEN 325 MG TAB PO PRN (13:51)
[2016-05-30 20:00] VITALS: BP 118/78; PULSE 83; RESP 18; TEMP 97.9; O2SAT 96
[2016-05-30] MEDS: ENOXAPARIN SODIUM 40 MG/0.4 ML SYRINGE SQ SCH (20:50)
[2016-05-30] MEDS: TEMAZEPAM 15 MG CAP PO PRN (22:09)
[2016-05-31] MEDS: ACETAMINOPHEN/HYDROcodone 325 MG/5 MG TAB PO PRN ×4 (04:56→22:54)
[2016-05-31 07:50] VITALS: BP 121/91; PULSE 98; RESP 18; TEMP 98; O2SAT 96
[2016-05-31] MEDS: guaiFENesin/DEXTROMETHORPHAN 200 MG/20 MG/10 ML CUP PO PRN ×2 (08:07→22:54)
[2016-05-31] MEDS: busPIRone HCL 10 MG TAB PO SCH ×3 (08:08→17:08)
[2016-05-31] MEDS: VENLAFAXINE HCL XR 75 MG CAP PO SCH (08:08)
[2016-05-31] MEDS: LANSOPRAZOLE SOLUTAB 30 MG TAB PO SCH ×2 (08:08→21:03)
[2016-05-31] MEDS: BACITRACIN/POLYMYXIN B 15 GM TUBE TOPICAL SCH ×2 (08:08→21:03)
[2016-05-31] MEDS: METOCLOPRAMIDE HCL 10 MG TAB PO SCH ×2 (08:08→21:03)
[2016-05-31] MEDS: DOCUSATE SODIUM 50 MG/SENNA 8.6 MG TAB PO SCH (08:08)
[2016-05-31] MEDS: levETIRAcetam 500 MG TAB PO SCH ×2 (08:08→21:03)
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
[2016-05-31] MEDS ORDERED: BENZOCAINE-MENTHOL (SUGAR FREE) 15 MG-3.6 MG LOZENGE BUCCAL PRN (09:30)
[2016-05-31 10:43] VITALS: BP 121/91; PULSE 98; RESP 18; TEMP 98; O2SAT 96
[2016-05-31 20:00] VITALS: BP 116/79; PULSE 85; RESP 18; TEMP 98.7; O2SAT 96
[2016-05-31] MEDS: ENOXAPARIN SODIUM 40 MG/0.4 ML SYRINGE SQ SCH (21:03)
[2016-05-31] MEDS: TEMAZEPAM 15 MG CAP PO PRN (22:53)
[2016-06-01] MEDS: busPIRone HCL 10 MG TAB PO SCH ×3 (07:36→17:07)
[2016-06-01] MEDS: VENLAFAXINE HCL XR 75 MG CAP PO SCH (07:36)
[2016-06-01] MEDS: LANSOPRAZOLE SOLUTAB 30 MG TAB PO SCH ×2 (07:36→21:20)
[2016-06-01] MEDS: METOCLOPRAMIDE HCL 10 MG TAB PO SCH ×2 (07:37→21:20)
[2016-06-01] MEDS: DOCUSATE SODIUM 50 MG/SENNA 8.6 MG TAB PO SCH (07:37)
[2016-06-01] MEDS: ACETAMINOPHEN/HYDROcodone 325 MG/5 MG TAB PO PRN ×3 (07:37→20:18)
[2016-06-01] MEDS: levETIRAcetam 500 MG TAB PO SCH ×2 (07:37→21:20)
[2016-06-01] MEDS: BACITRACIN/POLYMYXIN B 15 GM TUBE TOPICAL SCH ×2 (07:38→20:27)
[2016-06-01 09:19] VITALS: BP 104/75; PULSE 82; RESP 18; TEMP 97.8; O2SAT 96
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
[2016-06-01 20:10] VITALS: BP 108/73; PULSE 77; RESP 20; TEMP 98.8; O2SAT 95
[2016-06-01] MEDS: ENOXAPARIN SODIUM 40 MG/0.4 ML SYRINGE SQ SCH (21:19)
[2016-06-01] MEDS: TEMAZEPAM 15 MG CAP PO PRN (21:20)
[2016-06-01] MEDS: guaiFENesin/DEXTROMETHORPHAN 200 MG/20 MG/10 ML CUP PO PRN (21:20)
[2016-06-02] MEDS: ACETAMINOPHEN/HYDROcodone 325 MG/5 MG TAB PO PRN ×4 (03:53→22:37)
[2016-06-02 08:00] VITALS: BP 108/69; PULSE 89; RESP 16; TEMP 98.1; O2SAT 93
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
[2016-06-02] MEDS: guaiFENesin/DEXTROMETHORPHAN 200 MG/20 MG/10 ML CUP PO PRN (09:55)
[2016-06-02] MEDS: VENLAFAXINE HCL XR 75 MG CAP PO SCH (09:56)
[2016-06-02] MEDS: METOCLOPRAMIDE HCL 10 MG TAB PO SCH ×2 (09:56→23:08)
[2016-06-02] MEDS: busPIRone HCL 10 MG TAB PO SCH ×3 (09:56→17:32)
[2016-06-02] MEDS: levETIRAcetam 500 MG TAB PO SCH ×2 (09:56→23:08)
[2016-06-02] MEDS: LANSOPRAZOLE SOLUTAB 30 MG TAB PO SCH ×2 (09:56→23:08)
[2016-06-02] MEDS: DOCUSATE SODIUM 50 MG/SENNA 8.6 MG TAB PO SCH (09:56)
[2016-06-02] MEDS: BACITRACIN/POLYMYXIN B 15 GM TUBE TOPICAL SCH ×2 (09:57→23:09)
[2016-06-02 20:57] VITALS: BP 117/68; PULSE 81; RESP 18; TEMP 98; O2SAT 97
[2016-06-02] MEDS: ONDANSETRON ODT 4 MG TAB PO PRN (22:36)
[2016-06-02] MEDS: ENOXAPARIN SODIUM 40 MG/0.4 ML SYRINGE SQ SCH (23:08)
[2016-06-02] MEDS: TEMAZEPAM 15 MG CAP PO PRN (23:16)
[2016-06-03] MEDS: ACETAMINOPHEN/HYDROcodone 325 MG/5 MG TAB PO PRN ×4 (04:25→23:08)
[2016-06-03 08:00] VITALS: BP 103/71; PULSE 77; RESP 18; TEMP 97.6; O2SAT 96
[2016-06-03] MEDS: DOCUSATE SODIUM 50 MG/SENNA 8.6 MG TAB PO SCH (08:40)
[2016-06-03] MEDS: levETIRAcetam 500 MG TAB PO SCH ×2 (08:40→20:57)
[2016-06-03] MEDS: VENLAFAXINE HCL XR 75 MG CAP PO SCH (08:41)
[2016-06-03] MEDS: busPIRone HCL 10 MG TAB PO SCH ×3 (08:41→16:56)
[2016-06-03] MEDS: LANSOPRAZOLE SOLUTAB 30 MG TAB PO SCH ×2 (08:41→20:57)
[2016-06-03] MEDS: METOCLOPRAMIDE HCL 10 MG TAB PO SCH ×2 (08:41→20:57)
[2016-06-03] MEDS: BACITRACIN/POLYMYXIN B 15 GM TUBE TOPICAL SCH ×2 (08:43→20:59)
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
[2016-06-03] MEDS: ACETAMINOPHEN 325 MG TAB PO PRN (13:46)
[2016-06-03 20:00] VITALS: BP 118/82; PULSE 89; RESP 16; TEMP 98; O2SAT 97
[2016-06-03] MEDS: ENOXAPARIN SODIUM 40 MG/0.4 ML SYRINGE SQ SCH (20:59)
[2016-06-03] MEDS: TEMAZEPAM 15 MG CAP PO PRN (23:07)
[2016-06-03] MEDS: guaiFENesin/DEXTROMETHORPHAN 200 MG/20 MG/10 ML CUP PO PRN (23:07)
[2016-06-03] MEDS: ONDANSETRON ODT 4 MG TAB PO PRN (23:07)
[2016-06-04] MEDS: ACETAMINOPHEN/HYDROcodone 325 MG/5 MG TAB PO PRN ×3 (05:56→20:27)
[2016-06-04] MEDS: busPIRone HCL 10 MG TAB PO SCH ×3 (07:45→16:28)
[2016-06-04] MEDS: levETIRAcetam 500 MG TAB PO SCH ×2 (07:45→20:28)
[2016-06-04] MEDS: LANSOPRAZOLE SOLUTAB 30 MG TAB PO SCH ×2 (07:45→20:28)
[2016-06-04] MEDS: VENLAFAXINE HCL XR 75 MG CAP PO SCH (07:45)
[2016-06-04] MEDS: DOCUSATE SODIUM 50 MG/SENNA 8.6 MG TAB PO SCH (07:45)
[2016-06-04] MEDS: BACITRACIN/POLYMYXIN B 15 GM TUBE TOPICAL SCH ×2 (07:48→20:30)
[2016-06-04 08:00] VITALS: BP 100/67; PULSE 92; RESP 16; TEMP 96.6; O2SAT 96
[2016-06-04] MEDS: METOCLOPRAMIDE HCL 10 MG TAB PO SCH ×3 (11:15→20:28)
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
[2016-06-04 20:00] VITALS: BP 110/74; PULSE 70; RESP 18; TEMP 96.7; O2SAT 98
[2016-06-04] MEDS: ENOXAPARIN SODIUM 40 MG/0.4 ML SYRINGE SQ SCH (22:34)
[2016-06-04] MEDS: TEMAZEPAM 15 MG CAP PO PRN (22:34)
[2016-06-04] MEDS: guaiFENesin/DEXTROMETHORPHAN 200 MG/20 MG/10 ML CUP PO PRN (22:34)
[2016-06-05] MEDS: ACETAMINOPHEN/HYDROcodone 325 MG/5 MG TAB PO PRN ×4 (02:23→22:16)
[2016-06-05] MEDS: METOCLOPRAMIDE HCL 10 MG TAB PO SCH ×4 (06:01→20:37)
[2016-06-05 08:43] VITALS: BP 119/79; PULSE 83; RESP 18; TEMP 98.7; O2SAT 95
[2016-06-05] MEDS: DOCUSATE SODIUM 50 MG/SENNA 8.6 MG TAB PO SCH (09:00)
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
[2016-06-05] MEDS: VENLAFAXINE HCL XR 75 MG CAP PO SCH (10:15)
[2016-06-05] MEDS: LANSOPRAZOLE SOLUTAB 30 MG TAB PO SCH ×2 (10:15→20:36)
[2016-06-05] MEDS: busPIRone HCL 10 MG TAB PO SCH ×3 (10:16→16:34)
[2016-06-05] MEDS: levETIRAcetam 500 MG TAB PO SCH ×2 (10:16→20:36)
[2016-06-05] MEDS: BACITRACIN/POLYMYXIN B 15 GM TUBE TOPICAL SCH ×2 (10:17→20:39)
[2016-06-05 20:00] VITALS: BP 111/69; PULSE 75; RESP 18; TEMP 98.3; O2SAT 96
[2016-06-05] MEDS: guaiFENesin/DEXTROMETHORPHAN 200 MG/20 MG/10 ML CUP PO PRN (22:16)
[2016-06-05] MEDS: ENOXAPARIN SODIUM 40 MG/0.4 ML SYRINGE SQ SCH (22:16)
[2016-06-05] MEDS: TEMAZEPAM 15 MG CAP PO PRN (22:16)
[2016-06-06] MEDS: ACETAMINOPHEN/HYDROcodone 325 MG/5 MG TAB PO PRN ×3 (04:03→17:52)
[2016-06-06] MEDS: METOCLOPRAMIDE HCL 10 MG TAB PO SCH ×3 (06:33→17:52)
[2016-06-06 08:00] VITALS: BP 104/77; PULSE 84; RESP 19; TEMP 97.9; O2SAT 96
[2016-06-06] MEDS: busPIRone HCL 10 MG TAB PO SCH ×3 (08:17→17:51)
[2016-06-06] MEDS: VENLAFAXINE HCL XR 75 MG CAP PO SCH (08:17)
[2016-06-06] MEDS: levETIRAcetam 500 MG TAB PO SCH (08:17)
[2016-06-06] MEDS: DOCUSATE SODIUM 50 MG/SENNA 8.6 MG TAB PO SCH (08:17)
[2016-06-06] MEDS: LANSOPRAZOLE SOLUTAB 30 MG TAB PO SCH (08:17)
[2016-06-06] MEDS: BACITRACIN/POLYMYXIN B 15 GM TUBE TOPICAL SCH (08:17)
[2016-06-06 12:15] VITALS: RESP 12
[2016-06-06] MEDS: guaiFENesin/DEXTROMETHORPHAN 200 MG/20 MG/10 ML CUP PO PRN (12:32)
--- NOTE | 2016-06-06 14:05 | HHI.PR ---
Subjective Remarks Patient seen and evaluated today in follow-up for continued discharge planning. Hospital day #184. Patient tolerating tube feedings and able to give them to himself. Objective Vitals Vital Signs Date Time Temp Pulse Resp B/P Pulse Ox O2 Delivery O2 Flow Rate FiO2 06/06/16 12:15 12 06/06/16 08:00 97.9 84 19 104/77 96 06/05/16 20:00 98.3 75 18 111/69 96 I/O 06/05/16 06/05/16 06/05/16 06/06/16 06/06/16 06/06/16 07:00 15:00 23:00 07:00 15:00 23:00 Intake Total 120 ml 500 ml 140 ml Output Total 1 ml Balance 119 ml 500 ml 140 ml Intake Oral 120 ml 260 ml 140 ml Tube Feeding 240 ml Output Urine Total 1 ml # Voids 3 1 # Bowel Movements 0 0 0 Objective Remarks GENERAL: This is a well-nourished, well-developed patient, in no apparent distress. CARDIOVASCULAR: Regular rate and rhythm without murmurs, gallops, or rubs. RESPIRATORY: Clear to auscultation. Breath sounds equal bilaterally. No wheezes , rales, or rhonchi. GASTROINTESTINAL: Abdomen soft, non-tender, nondistended. Normal active bowel sounds MUSCULOSKELETAL: Extremities without clubbing, cyanosis, or edema. NEURO: Alert & Oriented x4 to person, place, time, situation. Moves all ext x4 Procedures 12/05/15 irrigation and washout of open wound of the anterior neck, tongue, and upper lip. Layered closure of upper lip laceration, layered closure of left tongue laceration 12/12/15 bronchoscopy 12/14/15 bronchoscopy, tracheostomy 12/14/15 gastrostomy tube placement 12/26/15 bronchoscopy 12/26/15 midline 12/30/15 EGD 01/14/16 GJ tube exchange 03/29/16 GJ tube exchange 04/11/16 panendoscopy, esophageal stent insertion 05/08/16 panendoscopy with foreign body removal (food bolus in the esophagus) and stent removal A/P Assessment and Plan Hospital day 184. Patient will well with tube feeding. Able to give himself. Pain control. Respiratory failure is resolved LMWH qday Discharge Planning Case management aware barriers to discharge Stephy Verde MD Jun 06, 2016 14:05
[2016-06-06] MEDS ORDERED: METO10TA PO (16:06)
[2016-06-06] MEDS ORDERED: VENL75XR PO (16:06)
[2016-06-06] MEDS ORDERED: SIME80CH CHEW (16:06)
[2016-06-06] MEDS ORDERED: BUSP10TA PO (16:06)
[2016-06-06] MEDS ORDERED: LEVE500 PO (16:06)
[2016-06-06] MEDS ORDERED: HYDR-3516 PO (16:06)
[2016-06-06] MEDS ORDERED: PREV30TA3 PO (16:06)
[2016-06-06] MEDS ORDERED: REST15CA PO (16:06)
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
== END 2016-06-06 18:24 | disposition home or self-care (01) | DRG 3 ==
LOC: NEPI 11:08 → EDBD 11:38 → MERGE 11:38 → NEDA 11:38 → UNDOADMIN 12:22 → NEDA 12:22 → N03A 12:24 → HOCB 01-13 22:37 → PH3B 01-19 12:20 → PHICU 02-01 08:45 → PH3A 02-04 23:22 → N04A 02-11 23:27 → UNDODISIN 03-13 19:40 → PH5A 03-13 21:20 → HSDI 04-11 11:00 → PH5A 04-11 16:00
PROVIDERS: ADMIT Hospitalist; ATTEND Hospitalist
PROC: 5A1955Z Respiratory Ventilation, Greater than 96 Consecutive Hours (ICD-10-PCS; 2015-12-05)
PROC: 0CQ0XZZ Repair Upper Lip, External Approach (ICD-10-PCS; 2015-12-05)
PROC: 0BH17EZ Insertion of Endotracheal Airway into Trachea, Via Natural or Artificial Opening (ICD-10-PCS; 2015-12-05)
PROC: 0CQ7XZZ Repair Tongue, External Approach (ICD-10-PCS; principal; 2015-12-05 12:42)
PROC: 0BBL8ZX Excision of Left Lung, Via Natural or Artificial Opening Endoscopic, Diagnostic (ICD-10-PCS; 2015-12-12)
PROC: 0DJ08ZZ Inspection of Upper Intestinal Tract, Via Natural or Artificial Opening Endoscopic (ICD-10-PCS; 2015-12-13)
PROC: 0B113F4 Bypass Trachea to Cutaneous with Tracheostomy Device, Percutaneous Approach (ICD-10-PCS; 2015-12-14)
PROC: 0DHA3UZ Insertion of Feeding Device into Jejunum, Percutaneous Approach (ICD-10-PCS; 2015-12-14)
PROC: 0BJ08ZZ Inspection of Tracheobronchial Tree, Via Natural or Artificial Opening Endoscopic (ICD-10-PCS; 2015-12-14)
PROC: 0B9B8ZX Drainage of Left Lower Lobe Bronchus, Via Natural or Artificial Opening Endoscopic, Diagnostic (ICD-10-PCS; 2015-12-26)
PROC: 0B988ZX Drainage of Left Upper Lobe Bronchus, Via Natural or Artificial Opening Endoscopic, Diagnostic (ICD-10-PCS; 2015-12-26)
PROC: 0DJ08ZZ Inspection of Upper Intestinal Tract, Via Natural or Artificial Opening Endoscopic (ICD-10-PCS; 2015-12-30)
PROC: 0D20XUZ Change Feeding Device in Upper Intestinal Tract, External Approach (ICD-10-PCS; 2016-01-16)
PROC: 0D20XUZ Change Feeding Device in Upper Intestinal Tract, External Approach (ICD-10-PCS; 2016-03-29)
PROC: 0D728DZ Dilation of Middle Esophagus with Intraluminal Device, Via Natural or Artificial Opening Endoscopic (ICD-10-PCS; 2016-04-11)
PROC: 0DP58DZ Removal of Intraluminal Device from Esophagus, Via Natural or Artificial Opening Endoscopic (ICD-10-PCS; 2016-05-08)
DX: S01.502A Unspecified open wound of oral cavity, initial encounter (principal); J86.0 Pyothorax with fistula; J69.0 Pneumonitis due to inhalation of food and vomit; R65.20 Severe sepsis without septic shock; J15.0 Pneumonia due to Klebsiella pneumoniae; G93.41 Metabolic encephalopathy; A41.9 Sepsis, unspecified organism; J96.21 Acute and chronic respiratory failure with hypoxia; J98.11 Atelectasis; E87.0 Hyperosmolality and hypernatremia; J90 Pleural effusion, not elsewhere classified; E87.2 Acidosis; T17.890A Other foreign object in other parts of respiratory tract causing asphyxiation, initial encounter; Q39.6 Congenital diverticulum of esophagus; R45.851 Suicidal ideations; Z99.11 Dependence on respirator [ventilator] status; K94.23 Gastrostomy malfunction; F33.1 Major depressive disorder, recurrent, moderate; E44.1 Mild protein-calorie malnutrition; K56.7 Ileus, unspecified; J44.0 Chronic obstructive pulmonary disease with (acute) lower respiratory infection; R13.10 Dysphagia, unspecified; D53.9 Nutritional anemia, unspecified; S01.501A Unspecified open wound of lip, initial encounter; S11.89XA Other open wound of other specified part of neck, initial encounter; I10 Essential (primary) hypertension; K21.9 Gastro-esophageal reflux disease without esophagitis; G47.33 Obstructive sleep apnea (adult) (pediatric); F43.23 Adjustment disorder with mixed anxiety and depressed mood; M12.9 Arthropathy, unspecified; M50.321 Other cervical disc degeneration at C4-C5 level; E83.51 Hypocalcemia; J32.2 Chronic ethmoidal sinusitis; M50.322 Other cervical disc degeneration at C5-C6 level; G89.4 Chronic pain syndrome; K44.9 Diaphragmatic hernia without obstruction or gangrene; N62 Hypertrophy of breast; E83.39 Other disorders of phosphorus metabolism; G47.00 Insomnia, unspecified; E83.42 Hypomagnesemia; E86.0 Dehydration; E87.6 Hypokalemia; F41.9 Anxiety disorder, unspecified; Z51.5 Encounter for palliative care; R56.9 Unspecified convulsions; Z23 Encounter for immunization; Z87.891 Personal history of nicotine dependence; Z91.19 Patient's noncompliance with other medical treatment and regimen; Z59.0 Homelessness; Y83.3 Surgical operation with formation of external stoma as the cause of abnormal reaction of the patient, or of later complication, without mention of misadventure at the time of the procedure
CPT/HCPCS: 31500; 31600; 31624; 36415; 36569; 36600; 43753; 49440; 49446; 49452; 70450; 70486; 70491; 70498; 70551; 71010; 71020; 71250; 71260; 72125; 74000; 74176; 74177; 74220; 74230; 74250; 76000; 76642; 76937; 76942; 80048; 80053; 80202; 80301; 80320; 81001; 82140; 82150; 82435; 82550; 82565; 82805; 82947; 82948; 83036; 83605; 83690; 83735; 83880; 84100; 84132; 84134; 84155; 84295; 84402; 84403; 84443; 84484; 84520; 85007; 85025; 85027; 85610; 85730; 86403; 86850; 86900; 86901; 87015; 87040; 87070; 87077; 87086; 87102; 87107; 87116; 87186; 87205; 87206; 87641; 89050; 90471; 90686; 93005; 94002; 94003; 94150; 94640; 94664; 95819; 96374; 96375; 99144; 99291; A7521; C1769; C1874; C1887; C2625; C9113; G0008; G0390; G0479; J0131; J0171; J0360; J0461; J0610; J0690; J0692; J0696; J1170; J1610; J1650; J1940; J1953; J1956; J1980; J2060; J2212; J2250; J2270; J2370; J2405; J2543; J2550; J2765; J2920; J3010; J3370; J3411; J3475; J3480; J7030; J7040; J7042; J7050; J7120; J7608; J7613; L0172; P9045; P9047; Q2038; Q9963; Q9967